=== PATIENT | female | born 1970 | race Caucasian/White ===

== ENCOUNTER → 2016-07-31 | Outpatient (CLI) | payer BC ==
[~2016-07-31] MED LIST: CLON0.5T3 PO; DESO5TAB PO; SUMA50TA15 PO; TRAM-10 PO
[2016-07-31 18:33] LABS: BASO % 0.4 %; BASO ABS # 0.05 K/uL (0-0.2); COMPLETE YES; EOS % 1.5 %; HEMATOCRIT 41.1 % (37-47); IG% 0.3 %; LYMPH % 27.1 %; LYMPH ABS # 3.53 K/uL (1.2-3.4); MEAN CELL VOLUME 89.5 fL (80-100); MEAN CORPUSCULAR HEMOGLOBIN 29.2 pg (25-34); MEAN CORPUSCULAR HGB CONC 32.6 g/dl (32-36); MEAN PLATELET VOLUME 10.8 fL (7.4-10.4); MONO % 3.5 %; NEUT % 67.2 %; PLATELET COUNT 330 K/uL (130-400); RED BLOOD COUNT 4.59 M/uL (4.2-5.4); WHITE BLOOD COUNT 13.04 K/uL (4.8-10.8)
[2016-07-31 19:01] LABS: BLOOD UREA NITROGEN 21 mg/dl (7-18); BUN/CREATININE RATIO 18.6 (10-20); CALCIUM 8.8 mg/dl (8.5-10.1); CARBON DIOXIDE 25 mmol/L (21-32); CHLORIDE 106 mmol/L (98-107); GLUCOSE 106 mg/dl (70-99); POTASSIUM 3.8 mmol/L (3.5-5.1); SODIUM 141 mmol/L (136-145)
== END | disposition home or self-care (01) ==
LOC: C.LAB 17:24
PROVIDERS: ATTEND Psychiatry & Neurology Psychiatry
DX: Z51.81 Encounter for therapeutic drug level monitoring (principal); Z79.899 Other long term (current) drug therapy

== ENCOUNTER → 2016-12-25 | Outpatient (CLI) | payer BC ==
[~2016-12-25] MED LIST changes: +LEVO25TA5 PO; +LITH300T PO
== END | disposition home or self-care (01) ==
LOC: C.PAPS 12:15
PROVIDERS: ATTEND Physician Assistant
DX: Z01.419 Encounter for gynecological examination (general) (routine) without abnormal findings (principal)

== ENCOUNTER 2017-08-05 05:24 | Observation (INO) | payer BC, OTHER ==
[2017-08-01 14:43] LABS: BASO % 0.4 %; BASO ABS # 0.04 K/uL (0-0.2); EOS % 1.8 %; EOS ABS # 0.19 K/uL (0-0.5); HEMATOCRIT 41.2 % (37-47); HEMOGLOBIN 13.8 g/dL (12.0-16.0); IG# 0.03 K/uL (0.00-0.02); LYMPH % 31.9 %; LYMPH ABS # 3.34 K/uL (1.2-3.4); MEAN CELL VOLUME 88.2 fL (80-100); MEAN CORPUSCULAR HEMOGLOBIN 29.6 pg (25-34); MEAN CORPUSCULAR HGB CONC 33.5 g/dl (32-36); MONO % 6.4 %; MONO ABS # 0.67 K/uL (0.11-0.59); NEUT % 59.2 %; NEUT ABS # 6.19 K/uL (1.4-6.5); PLATELET COUNT 372 K/uL (130-400); RED CELL DISTRIBUTION WIDTH CV 13.2 % (11.5-14.5); RED CELL DISTRIBUTION WIDTH SD 42.6 fL (36.4-46.3); WHITE BLOOD COUNT 10.46 K/uL (4.8-10.8)
[2017-08-01 15:12] LABS: BLOOD UREA NITROGEN 19 mg/dl (7-18); CALCIUM 8.9 mg/dl (8.5-10.1); CARBON DIOXIDE 28 mmol/L (21-32); CREATININE 0.97 mg/dl (0.60-1.20); GLUCOSE 99 mg/dl (70-99); POTASSIUM 4.3 mmol/L (3.5-5.1); SODIUM 137 mmol/L (136-145)
[~2017-08-05] VITALS: Ht 160 cm; Wt 80.7 kg
[2017-08-05] VITALS (10 sets, daily range): BP systolic 107–143; BP diastolic 73–80; PULSE 78–109; TEMP 36.3–36.9; O2SAT 90–96; Ht 160 cm; Wt 80.7 kg
[2017-08-05] MEDS ORDERED: CEFAZOLIN 2000MG IV PUSH 15 ML IV SCH (06:00)
[2017-08-05] MEDS ORDERED: LACTATED RINGER'S 1000ML 1,000 ML IV SCH ×2 (06:00→10:45)
[2017-08-05] MEDS ORDERED: LACTATED RINGER'S 1000ML IV SCH (06:00)
[2017-08-05] MEDS ORDERED: EpHEDrine SULFATE INJ 50 MG/ML AMP IV PRN (06:30)
[2017-08-05] MEDS ORDERED: PROMETHAZINE HCL INJ 12.5 MG in SODIUM CHLORIDE 0.9% 50ML 50 ML IV PRN ×2 (06:30→09:15)
[2017-08-05] MEDS ORDERED: ATROPINE SULFATE 0.1 MG/ML 5ML SYR IV PRN (06:30)
[2017-08-05] MEDS ORDERED: ONDANSETRON INJ 2 MG/ML 2 ML VIAL IV PRN ×2 (06:30→09:15)
[2017-08-05] MEDS ORDERED: MIDAZOLAM HCL 1 MG/ML 2ML VIAL ONE (07:01)
[2017-08-05] MEDS ORDERED: FENTANYL CITRATE INJ 50 MCG/1 ML 2 ML VIAL ONE (07:01)
--- NOTE | 2017-08-05 07:08 | History and Physical ---
History & Physical Date Aug 05, 2017. Chief Complaint Hysterectomy due to failed 2014 ablation with full flow menses and cyclic monthly pelvic pain suggestive of endometriosis History of Present Illness The patient is a 47 year old female with complaints as above. Past Medical/Surgical History Medical Problems: (1) Depressive disorder (2) Diverticulitis (3) Gastroesophageal reflux disease (4) Lumbosacral neuritis (5) Migraine (6) Partial bowel obstruction (7) Right leg pain Surgical Problems: (1) History of appendectomy (2) Hx of cholecystectomy Allergies Coded Allergies: No Known Allergies (Verified , 08/05/17) Home Medications Scheduled Desogestrel-Ethinyl Estradiol (Pimtrea 0.15-0.02/0.01 mg (18/11)), 1 TAB PO DAILY Levothyroxine Sodium (Levothyroxine Sodium), 25 MCG PO DAILY Cotter Carbonate (Lithobid Ext Rel), 600 MG PO QAM Sumatriptan Succinate (Imitrex), 50 MG PO PRN Scheduled PRN Clonazepam (Klonopin), 0.5 MG PO DIRECTED PRN for Anxiety Tramadol (Ultram), 50 MG PO Q8H PRN for Pain Physical Examination Skin: warm/dry Eyes: normal inspection ENT: normal ENT inspection Head: normocephalic Neck: supple Respiratory/Chest: no respiratory distress Cardiovascular: regular rate, rhythm, no edema Abdomen / GI: normal bowel sounds Back: normal inspection Extremities: normal inspection Neurologic/Psych: no motor/sensory deficits Plan of Treatment Robotic laparoscopic hysterectomy with bilateral salpingectomy, possible oophorectomy to be decided intraoperatively based on appearance of the ovaries and/or difficulty of surgical approach. If significant endometriosis is encountered, if it involves the ovaries, and/or if surgical approach is so difficult as to make the potential need for re-operation evidently risky, patient desires oophorectomy.
[2017-08-05] MEDS ORDERED: NEOSTIGMINE METHYLSULFATE 5 MG/5 ML SYR ONE (08:31)
[2017-08-05] MEDS ORDERED: ROCURONIUM BROMIDE 10 MG/ML 5 ML VIAL IV ONE ×2 (08:31→08:52)
[2017-08-05] MEDS ORDERED: LARYING-O-JET KIT (LTA) ONE (08:31)
[2017-08-05] MEDS ORDERED: EpHEDrine SULFATE 50MG/5ML SYR ONE (08:31)
[2017-08-05] MEDS ORDERED: LIDOCAINE HCL 2% 2 ML VIAL (20MG/ML) ONE (08:31)
[2017-08-05] MEDS ORDERED: HYDROmorphone INJ 2 MG/ML SYR/VIAL ONE (08:31)
[2017-08-05] MEDS ORDERED: METHYLENE BLUE 0.5% 10 ML VIAL ONE (08:31)
[2017-08-05] MEDS ORDERED: GLYCOPYRROLATE INJ 0.2 MG/ML VIAL ONE (08:31)
[2017-08-05] MEDS ORDERED: ONDANSETRON INJ 2 MG/ML 2 ML VIAL ONE (08:31)
[2017-08-05] MEDS ORDERED: PROPOFOL IV EMULSION 10 MG/ML 20 ML VIAL IV ONE (08:31)
[2017-08-05] MEDS ORDERED: DEXAMETHASONE SOD INJ 4 MG/ML VIAL ONE (08:31)
--- NOTE | 2017-08-05 09:10 | [facility] Post Operative Brief Note ---
Immediate Operative Summary Operative Date Aug 05, 2017. Pre-Operative Diagnosis Failed ablation and endometriosis Post-Operative Diagnosis Failed ablation and endometriosis Procedure(s) Performed Robotic assisted total laparoscopic hysterectomy with bilateral salpingo-oopherectomy,lysis of adhesions and cystscopy Surgeon Dr. Jacki Jeronimo MD Crm Solution Architect Surgeon(s) Dr. Sven Feliciano MD Estimated Blood Loss 5 ml Findings Consistent with Post-Op Diagnosis Specimens A. Uterus, cervix, and bilateral fallopian tubes and ovaries Drains None Anesthesia Type General Complication(s) none Disposition Accompanied Pt To Recover: no Disposition: Recovery Room / PACU
[2017-08-05] MEDS ORDERED: OXYC-57 PO (09:11)
--- NOTE | 2017-08-05 09:12 | Discharge Instructions ---
Discharge Instructions Date of Service Aug 05, 2017. Visit Reason for Visit: Menorrhagia, Female Pelvic Pain;Z01.818 Discharge Discharge Diagnosis / Problem: Endometriosis, Pelvic adhesive disease, Menorrhagia, Failed ablation Discharge Goals Goal(s): Specific goals Activity Recommendations Activity Limitations: per Instructions/Follow-up section Anesthesia . Post Anesthesia Instructions: If you have had General Anesthesia or IV Sedation: * Do not drive today. * Resume driving when surgeon permits. * Do not make important decisions or sign legal documents today. * Call surgeon for: 1. Temperature elevations greater than 101 degrees F. 2. Uncontrollable pain. 3. Excessive bleeding. 4. Persistent nausea and vomiting. 5. Medication intolerance (nausea, vomiting or rash). * For nausea and vomiting use only clear liquids such as: tea, soda, bouillon until nausea subsides, then gradually increase diet as tolerated. * If you have any concerns or questions, call your surgeon's office. If physician is unavailable and it is an emergency, call 911 or go to the nearest emergency room. . Instructions / Follow-Up Instructions / Follow-Up POST OPERATIVE: BOWEL FUNCTION/MEDICATIONS: 1. Constipation pain and discomfort are the most common complaints 5-7 days after surgery. Points 2-6 address the things that can help. 2. Chewing gum can help stimulate the gut and help improve digestion and motility. 3. Milk of Magnesia 1-2 times per day until return of bowel function. 4. Colace is a stool softener that helps. Taking this 2-3 times per day until bowel function returns to normal is highly recommended. 5. Dulcolax is a laxative that may be used if several days have passed without a bowel movement. Alternatively Miralax may be used daily instead. 6. Drink plenty of fluids as this will also reduce constipation. 7. Narcotic pain medications will be prescribed by your physician. They are safe to use and we encourage you to use them. If you are not allergic, ibuprofen will also be prescribed. Many patients will be able to transition off of the narcotic medications to ibuprofen by postoperative day 3. ACTIVITY RECOMMENDATIONS: 1. Get plenty of rest and listen to your body. If you are tired, take a nap. 2. You may shower, but do not take a tub bath until you see your doctor at the 2 week post operative visit. 3. Absolutely NO intercourse and nothing in the vagina until you are examined by your doctor at the 6 week visit. At that visit it will be determined when such activities can be resumed. This can range from 6-12 weeks after your surgery depending on healing time. 4. The main physical activity in the first week should be walking. By the second week you can slowly increase activity. There are no limits on walking up and down stairs. 5. Do not lift more than 5-10 lbs for 4 weeks. Remember the "one-handed rule", i.e. if you can lift something with only one hand it's likely okay. 6. Minimize [employer] or [employer] like vacuuming and exercising for 4 weeks. "Overdoing it" can lead to incisions not healing, pain and vaginal bleeding , so again, listen to your body. 7. Driving can be resumed when you feel able. Do not drive within 24 hours of taking a narcotic medication. EXPECTATIONS: 1. Vaginal spotting, bleeding and discharge are common after surgery. There may even be an odor to the discharge which is often related to sutures used in the vagina. If you experience heavy vaginal bleeding, call the office number day or night [phone]. 2. Bladder discomfort is common after surgery from the catheter. This usually resolves in 1-2 weeks. 3. By the end of the 3rd or 4th week you should be feeling much better. It may take up to 6 weeks for your energy levels to return to normal. 4. Narcotic medications have side effects such as: dizziness, headache, nausea and/or vomiting. If you suspect your pain medication is causing problems, call our office and we may be able to prescribe an alternate medication. 5. The skin incisions are often covered with a liquid bandage. This will gradually peel off over time. CALL THE OFFICE IF YOU HAVE ANY OF THE FOLLOWIN. Temperature of 101 degrees or higher. 2. Severe abdominal or pelvic pain not relieved by pain medication. 3. Persistent nausea or vomiting. 4. Increased pain with urination or difficulty urinating. 5. Bright red bleeding that soaks more than 1 pad per hour. CONTACT PHONE NUMBERS: Main Office: [phone] Surgical Nurse: [phone] extension [phone] FOLLOW-UP: Post-Operative Appointments: * Individual instructions will have been given about the timing of your first examination, but this is usually at the end of the second week home. * You will need to call the office at soon after discharge to make the appointment for your post-op check-up if it has not already been scheduled. * Additional information regarding activity, sexual intercourse and when to return to work will be given at this appointment. WE WISH YOU A SPEEDY RECOVERY! Diet Recommendations Recommended Home Diet: no limitations Procedures Procedures Performed: Robotic assisted total laparoscopic hysterectomy with bilateral salpingo-oopherectomy,lysis of adhesions and cystscopy Pending Studies Studies pending at discharge: no Medical Emergencies . Who to Call and When: Medical Emergencies: If at any time you feel your situation is an emergency, please call 911 immediately. . Non-Emergent Contact Non-Emergency issues call your: Primary Care Provider . . "Provider Documentation" section prepared by Jacki Jeronimo. . [place] Drug Monitoring Program Search Results: patient reviewed within database, no issues identified Drug Monitoring Findings: Known chronic narcotic use due to comorbid conditions
[2017-08-05] MEDS ORDERED: OXYCODONE/ACETAMINOPHEN 5-325 TAB PO PRN (09:15)
[2017-08-05] MEDS ORDERED: MEPERIDINE HCL 50 MG/ML CARP IV PRN (09:15)
[2017-08-05] MEDS ORDERED: ACETAMINOPHEN 325 MG TAB PO PRN (09:15)
[2017-08-05] MEDS ORDERED: KETOROLAC TROMETHAMINE 30 MG/ML VIAL IV. PRN (09:15)
[2017-08-05] MEDS ORDERED: IV FLUIDS COMPLETED PRN (09:30)
[2017-08-05] MEDS: FENTANYL CITRATE INJ 50 MCG/1 ML 2 ML VIAL IV PRN ×4 (09:36→09:52)
[2017-08-05] MEDS: HYDROmorphone INJ 1 MG/ML SYR IV PRN ×2 (09:57→10:03)
--- NOTE | 2017-08-05 10:06 | Anesthesiology Progress Note ---
Anesthesia Post Op Note Date & Time Aug 05, 2017 at 10:06 Vital Signs Pain Intensity: 5 Vital Signs Past 12 Hours Date Time Temp Pulse Resp B/P (MAP) Pulse Ox O2 Delivery O2 Flow Rate FiO2 08/05/17 10:00 85 19 117/90 97 Nasal Cannula 2 08/05/17 09:50 79 15 119/73 95 Nasal Cannula 2 08/05/17 09:40 87 13 111/76 97 Oxymask 10 08/05/17 09:30 74 17 115/80 99 Oxymask 10 08/05/17 09:21 36.3 86 19 120/78 100 Oxymask 10 08/05/17 06:03 36.9 78 18 116/77 (90) 96 Room Air Notes Mental Status: alert / awake / arousable, participated in evaluation Pt Amnestic to Procedure: Yes Nausea / Vomiting: adequately controlled Pain: adequately controlled Airway Patency, RR, SpO2: stable & adequate BP & HR: stable & adequate Hydration State: stable & adequate Anesthetic Complications: no major complications apparent
[2017-08-05] MEDS ORDERED: KETOROLAC TROMETHAMINE 30 MG/ML VIAL ONE (10:09)
[2017-08-05] MEDS: MEPERIDINE HCL 50 MG/ML CARP IV PRN ×2 (10:58→14:46)
[2017-08-05] MEDS: OXYCODONE/ACETAMINOPHEN 5-325 TAB PO PRN ×3 (11:50→20:53)
[2017-08-05] MEDS: IBUPROFEN 600 MG TAB PO PRN ×2 (12:23→18:24)
[2017-08-05 16:04] LABS: HEMOGLOBIN 12.7 g/dL (12.0-16.0)
--- NOTE | 2017-08-05 18:51 | OPERATIVE REPORT ---
DATE OF OPERATION: 08/05/2017 PREOPERATIVE DIAGNOSES: Failed ablation, menorrhagia, endometriosis, chronic pelvic pain. POSTOPERATIVE DIAGNOSES: Same. PROCEDURE: Robotic assisted total laparoscopic hysterectomy, bilateral salpingo-oophorectomy, lysis of adhesions and cystoscopy. SURGEON: Dr. Jeronimo. ASSEMBLER SANDAL PARTS: Dr. Sven Feliciano. ESTIMATED BLOOD LOSS: 5 mL. FINDINGS: Consistent with postop diagnosis. SPECIMENS: Uterus, cervix and bilateral fallopian tubes and ovaries. DRAINS: None. ANESTHESIA: General. COMPLICATIONS: None. DISPOSITION: Stable to recovery room. DESCRIPTION OF PROCEDURE: [place] was placed on the table in the dorsal lithotomy position with Yellofin stirrups, prepped and draped in standard sterile fashion and a hard time-out was taken prior to proceeding. A Lyons and a Meaningfy uterine manipulator were placed. Attention was then turned to the abdomen where a supraumbilical entry was made in an optical manner without complications. The abdomen was then insufflated and under direct visualization, right and left lower quadrant ports were placed while the patient was in steep Trendelenburg. Visualization of the pelvis revealed significant adhesive disease with the bowel densely adherent over the left adnexa to the posterior surface of the uterus and cervix and over the right adnexa as well. Surgery began by elevation of the uterus and then careful dissection of the bowel and omentum from its adhesion points over the posterior uterus. Once the cul-de-sac was able to be visualized, we were able to be several patches of endometriosis visible on the structures in the pelvic including on the bowel and omentum that had been adhesed in the pelvis. Photography was taken. Dissection then proceeded freeing the bowel and omentum from its adhesion points over the left adnexal structures. Of note, at this time we were able to then visualize the ureters coming over the pelvic brim on both sides and visualized their course of peristalsis down into the deep pelvis. This was noted to be well away from the IP ligaments and the ovaries on both sides. Once the left IP ligament had been nicely skeletonized with all bowel adhesions removed away. I discussed the decision to remove ovaries with my partner in the operating room, both of us felt that there was significant evidence for endometriosis including both the plaques which we saw in the cul-de-sac as well as the significant number of peritoneal windows and adhesions throughout the pelvis. We both felt that removing the ovaries was in the best interest of the patient, both to allow resolution of her endometriosis as well as to avoid the need for further surgery which could pose significant risks to the patient given her significant intra-abdominal adhesive disease. Having made the decision to take both ovaries, I began by making a peritoneal window just lateral to the IP ligament, this was dissected downwards and a window was created in the medial leaflet allowing a window to be formed around the IP. The IP was grasped, ligated and divided using bipolar cautery. Dissection proceeded upwards to free the adnexal structures in the pelvic sidewall. Attention was then turned to the right adnexa where again dissection of adhesive disease was done to remove the bowel and omentum away from the adnexal structures. Once the structures were clearly visible, the IP was ligated and then divided and dissection proceeded to free the adnexal structures from the pelvic sidewall in the peritoneum. Creation of a bladder flap proceeded, skeletonization of the uterine arteries proceeded as well. The right uterine artery was ligated and divided and then the left uterine artery was ligated and divided. Circumferential colpotomy was then completed and the cervix, uterus and bilateral tubes and ovaries were delivered through the vaginal canal. A V-Loc suture was then used to close the vaginal cuff in a running nonlocked manner, after which the needle was retrieved through robotic laparoscopic port. Brief suction irrigation was undertaken to ensure good hemostasis at all working sites. Once this had been demonstrated, the Robotic instruments were removed and cystoscopy was performed. Methylin blue had been given prior to closure of the cuff. A blue-stained jet of urine was seen from each ureteral orifice. The bladder was then drained and attention to the abdominal closure then began. The umbilical port site was closed using a UR-6 at the fascial layer and the skin was closed all 3 sites using Monocryl with a Dermabond dressing then being applied. The patient was then transferred in stable condition to the recovery room. I attest to the content of the Intraoperative Record and any orders documented therein. Any exception s are noted below.
[2017-08-05] MEDS: DOCUSATE SODIUM 100 MG CAP PO SCH (20:53)
[2017-08-06 00:04] VITALS: BP 106/66; PULSE 88; TEMP 36.9
[2017-08-06] MEDS: IBUPROFEN 600 MG TAB PO PRN ×2 (00:15→07:31)
[2017-08-06] MEDS: OXYCODONE/ACETAMINOPHEN 5-325 TAB PO PRN ×2 (01:02→06:23)
[2017-08-06] MEDS ORDERED: OXYCODONE/ACETAMINOPHEN 5-325 TAB PO STA (03:39)
[2017-08-06] MEDS ORDERED: NURSING VERBAL MED ORDER ONE (03:45)
[2017-08-06 04:05] VITALS: BP 114/74; PULSE 78; TEMP 36.8
[2017-08-06 07:20] VITALS: BP 108/68; PULSE 69; TEMP 36.6; O2SAT 96
[2017-08-06] MEDS: DOCUSATE SODIUM 100 MG CAP PO SCH (07:30)
--- NOTE | 2017-08-06 07:30 | Progress Note ---
Subjective Date of Service: Aug 06, 2017. Subjective Pt evaluation today including: conversation w/ patient, physical exam, chart review Pain: Currently well controlled. PO Intake: Regular diet without difficulty Voiding: no voiding problems Patient ambulated from the bathroom across the room and bent over to put things in her bag as I entered the room. She showed no sign of distress until she was aware of my presence. Her gait from there back to the bed was bent over and shuffling and she made several groans of pain. Problem List Medical Problems: (1) Cervical strain Status: Acute (2) Depression Status: Acute (3) Headache Status: Acute (4) Suicidal ideation Status: Acute Review of Systems Constitutional: No fever, No chills Respiratory: No cough Cardiac: No chest pain Abdomen: No nausea, No vomiting Female : No dysuria Objective Vital Signs Date Time Temp Pulse Resp B/P (MAP) Pulse Ox O2 Delivery O2 Flow Rate FiO2 08/06/17 04:05 36.8 78 18 114/74 (87) Room Air 08/06/17 00:04 36.9 88 18 106/66 (79) Room Air 08/06/17 00:04 Room Air 08/05/17 19:00 Room Air 08/05/17 19:00 36.8 89 20 111/73 (86) Room Air 08/05/17 15:05 94 Room Air 08/05/17 15:05 36.8 108 18 121/79 (93) 94 Room Air 08/05/17 13:40 86 20 107/78 (88) Room Air 08/05/17 12:45 36.4 104 18 143/73 (96) 96 Room Air 08/05/17 11:42 103 20 120/80 (93) 93 Room Air 08/05/17 11:21 94 Room Air 08/05/17 11:19 94 Room Air 08/05/17 11:10 109 22 117/74 (88) 90 Room Air 08/05/17 10:35 36.3 86 24 107/76 (86) 94 Room Air 08/05/17 10:20 36.7 94 15 109/74 97 Nasal Cannula 2 08/05/17 10:10 90 18 101/80 96 Nasal Cannula 2 08/05/17 10:00 85 19 117/90 97 Nasal Cannula 2 08/05/17 09:50 79 15 119/73 95 Nasal Cannula 2 08/05/17 09:40 87 13 111/76 97 Oxymask 10 08/05/17 09:30 74 17 115/80 99 Oxymask 10 08/05/17 09:21 36.3 86 19 120/78 100 Oxymask 10 Physical Exam General Appearance: + mild distress ENT: hearing grossly normal Neck: supple Respiratory/Chest: normal breath sounds, no respiratory distress Cardiovascular: no edema Abdomen: non tender, soft, + pertinent finding (incisions c/d/i x3 with surgiseal. No ecchymoses.) Extremities: normal inspection, + pertinent finding (SCDs not on. Patient ambulating.) Neurologic/Psychiatric: normal mood/affect, oriented x 3 Skin: no rash Laboratory Results Last 24 Hours Test 08/05/17 15:54 Hemoglobin 12.7 g/dL Hematocrit 39.0 % Assessment and Plan Ready for discharge home. Explained discharge instructions and need to schedule 2 and 6 week follow up appointments. Rx for #15 of percocet given and patient made aware it is not expected that she will need percocet beyond today/ tonight. Motrin and tylenol to be used thereafter.
[2017-08-06 09:04] VITALS: BP 108/68; PULSE 69; TEMP 36.6; O2SAT 96
== END 2017-08-06 09:33 | disposition home or self-care (01) ==
LOC: C.ACU 05:24 → C.OBG 09:13
PROVIDERS: ADMIT Obstetrics & Gynecology; ATTEND Obstetrics & Gynecology
DX: N80.1 Endometriosis of ovary (principal); N80.3 Endometriosis of pelvic peritoneum; N73.6 Female pelvic peritoneal adhesions (postinfective); D25.9 Leiomyoma of uterus, unspecified; E66.9 Obesity, unspecified; G47.33 Obstructive sleep apnea (adult) (pediatric); F32.9 Major depressive disorder, single episode, unspecified; K21.9 Gastro-esophageal reflux disease without esophagitis; Z90.49 Acquired absence of other specified parts of digestive tract
CPT/HCPCS: 58571; S2900

== ENCOUNTER 2017-08-16 09:27 | Inpatient (IN) | payer OTHER ==
[~2017-08-16] VITALS: Ht 160 cm; Wt 86.0 kg
[~2017-08-16 09:27] MED LIST changes: -DESO5TAB PO; +OXYC-57 PO
--- NOTE | 2017-08-16 09:40 | EMERGENCY ROOM VISIT NOTE ---
History Report prepared by Chris: Alon Akins Under the Supervision of: Dr. Ray Donovan M.D. First contact with patient: 09:35 Chief Complaint: CHEST PAIN Stated Complaint: CHEST PAIN History of Present Illness The patient is a 47 year old female who presents to the Emergency Room for evaluation chest pains. Notes 2 days increasing periodica episodes of shortness of breath and chest pains. Worse with exertion though periodically even with rest. Associated with tachycardia, dizziness, lightheadedness and periodic weakness. Admits posterior right knee pain over the last week. She had hysterectomy last week. No previous chest pain/sob issues. Denies history PE/DVT. No recent travel. No steroid use. No history clotting disorder in her nor family. Denies swelling arms/legs. Denies calf pain. No vaginal bleeding nor issues with abdominal pain other than what is easily controlled with percocet she has been using. No headache, neck pain, rectal bleeding, GI bleeds, nor brain surgeries. Source of History: patient Onset: 2 days ago Position: chest Quality: stabbing Timing: constant Modifying Factors (Worsening): movement Associated Symptoms: + SOB, + weakness Note: Patient reports dizziness and lightheadedness She denies leg swelling and radiation of pain into arms. Review of Systems See HPI for pertinent positives & negatives. A total of 10 systems reviewed and were otherwise negative. Past Medical & Surgical Medical Problems: (1) Depression (2) Endometriosis (3) GERD (gastroesophageal reflux disease) (4) ESTEBAN (obstructive sleep apnea) Surgical Problems: (1) H/O wisdom tooth extraction (2) History of appendectomy (3) History of hysterectomy (4) History of partial colectomy (5) Hx of cholecystectomy Family History Diabetes mellitus FH: gallbladder disease Kidney disease or stones Social History Smoking Status: Former Smoker Alcohol Use: occasionally Drug Use: none Marital Status: Housing Status: lives with family Occupation Status: employed Current/Historical Medications Scheduled Escitalopram (Lexapro), 10 MG PO DAILY Levothyroxine Sodium (Levothyroxine Sodium), 25 MCG PO DAILY [place] Carbonate (Lithobid Ext Rel), 600 MG PO QAM Sumatriptan Succinate (Imitrex), 50 MG PO PRN Scheduled PRN Clonazepam (Klonopin), 0.5 MG PO BID PRN for Anxiety Oxycodone/Acetaminophen 5MG/325MG (Percocet 5MG/325MG), 1 TABLET PO Q4H PRN for Pain Tramadol (Ultram), 50 MG PO Q8H PRN for Pain Allergies Coded Allergies: No Known Allergies (Verified , 08/16/17) Physical Exam Vital Signs Date Time Temp Pulse Resp B/P (MAP) Pulse Ox O2 Delivery O2 Flow Rate FiO2 08/16/17 11:19 89 24 124/66 98 Room Air 08/16/17 09:47 Room Air 08/16/17 09:39 100 08/16/17 09:29 36.6 114 20 126/84 98 Room Air Physical Exam GENERAL: Patient is anxious appearing and in no acute distress. HEENT: No acute trauma, normocephalic atraumatic, mucous membranes moist, no nasal congestion, no scleral icterus. NECK: No stridor, no adenopathy, no meningismus, trachea is midline. LUNGS: No dyspnea. Clear to auscultation and equal bilaterally. No wheeze, no rhonchi. HEART: Mild tachycardia with sitting up. Regular rhythm. No murmurs, rubs, gallops appreciated. ABDOMEN: Soft, nontender, bowel sounds positive, no masses appreciated, no peritonitis. Abdominal ports scars healing well. BACK: No midline tenderness, no CVA tenderness EXTREMITIES: Normal motion all extremities, no cyanosis, no edema. NEUROLOGIC: Alert and oriented, no acute motor or sensory deficits, no focal weakness, cranial nerves grossly intact. SKIN: No rash, no jaundice, no diaphoresis. Medical Decision & Procedures ER Provider Diagnostic Interpretation: Radiology results and stated below per my review and radiologist interpretation: (CHEST FOR PE) ANGIO WITH CLINICAL HISTORY: 47 years-old Female presenting with chest pain, shortness of breath, cough, tachycardia, recently postop, hysterectomy 2 weeks ago. TECHNIQUE: Multidetector CT angiography of the chest was performed after administration of intravenous contrast. 3-D volumetric and/or maximum intensity projection (MIP) images were subsequently reconstructed for review. IV contrast: 102 mL of Optiray 320. A dose lowering technique was used consistent with the principles of ALARA (as low as reasonably achievable). COMPARISON: Chest x-ray performed on 09/28/2014. CT DOSE (mGy.cm): The estimated cumulative dose is 533.97 mGycm. FINDINGS: Dermatology Physician Assistant topogram: Cholecystectomy clips noted. Pulmonary vasculature: The study is adequate for assessment of the pulmonary vascular tree. Acute pulmonary embolus in the pulmonary arteries supplying the lingula and left lower lobes. This extends into segmental pulmonary arteries more prominently in the lower lobe. No right-sided pulmonary emboli. Main pulmonary artery is not enlarged. No flattening of the interventricular septum. No intracardiac filling defect. No reflux of contrast into the hepatic veins. Remaining chest: On soft tissue windows, bilateral subpectoral breast implants. Subcentimeter hypodense nodule in the right lobe of the thyroid. No axillary, supraclavicular, hilar, or mediastinal lymphadenopathy. Normal aorta. Normal heart size. No pericardial or pleural effusion. Hepatic steatosis. On lung windows, minimal dependent changes likely atelectasis. No other focal nodule or infiltrate. Airways patent. On bone windows, normal osseous structures. IMPRESSION: 1. Acute pulmonary emboli in the lobar pulmonary arteries to the lingula and left lower lobes with additional segmental pulmonary emboli in these segments, greatest in the left lower lobe. No CT evidence of right heart strain. 2. No pulmonary infiltrate. 3. Hepatic steatosis. The report will be called/faxed according to standard departmental protocol. Electronically signed by: Sam Alston M.D. 08/16/2017 11:33 AM Dictated Date/Time: 08/16/2017 11:28 AM Laboratory Results Test 08/16/17 09:45 08/16/17 09:51 Immature Granulocyte % (Auto) 0.8 % White Blood Count 13.01 K/uL (4.8-10.8) Red Blood Count 4.95 M/uL (4.2-5.4) Hemoglobin 14.4 g/dL (12.0-16.0) Hematocrit 42.2 % (37-47) Mean Corpuscular Volume 85.3 fL (80-100) Mean Corpuscular Hemoglobin 29.1 pg (25-34) Mean Corpuscular Hemoglobin Concent 34.1 g/dl (32-36) Platelet Count 390 K/uL (130-400) Mean Platelet Volume 9.7 fL (7.4-10.4) Neutrophils (%) (Auto) 61.5 % Lymphocytes (%) (Auto) 27.8 % Monocytes (%) (Auto) 5.6 % Eosinophils (%) (Auto) 3.3 % Basophils (%) (Auto) 1.0 % Neutrophils # (Auto) 8.00 K/uL (1.4-6.5) Lymphocytes # (Auto) 3.62 K/uL (1.2-3.4) Monocytes # (Auto) 0.73 K/uL (0.11-0.59) Eosinophils # (Auto) 0.43 K/uL (0-0.5) Basophils # (Auto) 0.13 K/uL (0-0.2) Immature Granulocyte # (Auto) 0.10 K/uL (0.00-0.02) Troponin I < 0.015 ng/ml (0-0.045) Bedside Hemoglobin 13.9 g/dl (12.0-16.0) Bedside Hematocrit 41 % (37-47) Bedside Sodium 139 mEq/L (135-144) Bedside Potassium 3.9 mEq/L (3.3-5.0) Bedside Chloride 105 mEq/L (101-112) Bedside Total CO2 25 mEq/l (24-31) Bedside Blood Urea Nitrogen 25 mg/dl (7-18) Bedside Creatinine 0.8 mg/dl (0.6-1.3) Bedside Glucose (other) 107 mg/dl (70-99) Bedside Ionized Calcium (Barbara) 1.21 mmol/l (1.12-1.32) Laboratory results as reviewed by me. Medications Administered Medications (Trade) Dose Ordered Sig/Lida Route Start Time Stop Time Status Last Admin Dose Admin Sodium Chloride 1,000 ml @ 999 mls/hr Q1H1M STAT IV 08/16/17 09:53 08/16/17 10:53 DC 08/16/17 09:53 999 MLS/HR Oxycodone/ Acetaminophen (Percocet 5-325mg Tab) 1 tab NOW ONCE PO 08/16/17 10:15 08/16/17 10:16 DC 08/16/17 10:07 1 TAB Acetaminophen (Tylenol Tab) 650 mg Q4H PRN PO 08/16/17 12:15 09/15/17 12:14 08/17/17 02:12 650 MG ECG Per My Interpretation Indication: chest pain Rate (beats per minute): 93 Rhythm: normal sinus Findings: no acute ischemic change, no ectopy Change: EKG: Electrocardiogram per my interpretation. ED Course 0935: The patient was evaluated in room A11B. A complete history and physical exam was performed. 1000: I ordered the patient Percocet for her reported pain. 1135: After discussing concerns of a PE she states that she has had right posterior knee pain for the past 2 weeks. She feels slightly better and is tachycardiac. 1140: Discussed the patient's case with Nela Vines PA-C. The patient will be evaluated for further treatment and disposition. 1151: I discussed starting the patient on Heparin as well as the risks of bleeding post-operatively. 1300: Upon reevaluation, the patient is doing well. Discussed results and treatment plan with the patient. She verbalized understanding and agreement with the treatment plan. The patient will be evaluated for further management. Medical Decision Differential: Infectious, Reactive Airway Disease, Pneumonia, Pneumothorax, COPD , CHF, ACS, Pulmonary Embolism, MSK, GI, Dissection, amongst other etiologies entertained. 47 yr old female arrives with complaint of periodic shob/cp which gets worse with exertion. This begun in last few days but admits she has had some right posterior knee pain post operatively for last 1.5 weeks. She has shob/cp and is tachy with movement and just had surgery thus she meets criteria for CT PE without Dimer which revealed left lingular/lower lobe PEs. With recent surgery and multiple PEs seems reasonable to bring in for IV heparin for very close monitoring and further evaluation/treatment. Discussed at length bleeding risks and she agrees with plan. Reviewed with her surgeon as well. Medication Reconcilliation Current Medication List: was personally reviewed by me Blood Pressure Screening Patient's blood pressure: Normal blood pressure Blood pressure disposition: Did not require urgent referral Consults Time Called: 1139 Consulting Physician: Nela Vines PA-C Returned Call: 1140 I discussed the patient's case with Nela Vines PA-C who agrees with starting Heparin. The patient will be evaluated for further treatment and disposition. Impression Primary Impression: Pulmonary embolism Critical Care I have personally spent greater than 35 minutes of critical care time in the direct management of this patient. This was a life/limb threatening event. This includes time spent evaluating patient, direct bedside care, chart review, placing orders, interpretation of diagnostic studies, discussion with consultants, patient, and family members, as well as other required patient management activities. This 35 minutes is in excess of all separately billable procedures. Scribe Attestation The scribe's documentation has been prepared under my direction and personally reviewed by me in its entirety. I confirm that the note above accurately reflects all work, treatment, procedures, and medical decision making performed by me. Departure Information Referrals Joey Crockett III, M.D. (PCP) Patient Instructions My [facility]
[2017-08-16] MEDS ORDERED: SODIUM CHLORIDE 0.9% 1000ML 1,000 ML IV STA (09:53)
[2017-08-16 09:56] LABS: BASO ABS # 0.13 K/uL (0-0.2); EOS % 3.3 %; EOS ABS # 0.43 K/uL (0-0.5); HEMATOCRIT 42.2 % (37-47); HEMOGLOBIN 14.4 g/dL (12.0-16.0); LYMPH % 27.8 %; LYMPH ABS # 3.62 K/uL (1.2-3.4); MEAN CELL VOLUME 85.3 fL (80-100); MEAN CORPUSCULAR HEMOGLOBIN 29.1 pg (25-34); MEAN CORPUSCULAR HGB CONC 34.1 g/dl (32-36); MEAN PLATELET VOLUME 9.7 fL (7.4-10.4); MONO % 5.6 %; MONO ABS # 0.73 K/uL (0.11-0.59); NEUT % 61.5 %; PLATELET COUNT 390 K/uL (130-400); RED CELL DISTRIBUTION WIDTH CV 12.7 % (11.5-14.5); WHITE BLOOD COUNT 13.01 K/uL (4.8-10.8)
[2017-08-16] MEDS ORDERED: OPTIRAY 320 IV PRN (10:00)
[2017-08-16 10:04] LABS: ISTAT CREATININE 0.8 mg/dl (0.6-1.3); ISTAT IONIZED CALCIUM 1.21 mmol/l (1.12-1.32); ISTAT POTASSIUM 3.9 mEq/L (3.3-5.0)
[2017-08-16 10:09] LABS: BLOOD UREA NITROGEN 23 mg/dl (7-18); CALCIUM 9.5 mg/dl (8.5-10.1); CARBON DIOXIDE 25 mmol/L (21-32); GLUCOSE 107 mg/dl (70-99); POTASSIUM 3.8 mmol/L (3.5-5.1); SODIUM 137 mmol/L (136-145)
[2017-08-16] MEDS ORDERED: OXYCODONE/ACETAMINOPHEN 5-325 TAB PO ONE (10:15)
[2017-08-16] MEDS ORDERED: FLUO10CA48 PO (10:48)
--- NOTE | 2017-08-16 11:35 | DIAGNOSTIC IMAGING REPORT ---
(CHEST FOR PE) ANGIO WITH CLINICAL HISTORY: 47 years-old Female presenting with chest pain, shortness of breath, cough, tachycardia, recently postop, hysterectomy 2 weeks ago. TECHNIQUE: Multidetector CT angiography of the chest was performed after administration of intravenous contrast. 3-D volumetric and/or maximum intensity projection (MIP) images were subsequently reconstructed for review. IV contrast: 102 mL of Optiray 320. A dose lowering technique was used consistent with the principles of ALARA (as low as reasonably achievable). COMPARISON: Chest x-ray performed on 09/28/2014. CT DOSE (mGy.cm): The estimated cumulative dose is 533.97 mGycm. FINDINGS: Head Chef topogram: Cholecystectomy clips noted. Pulmonary vasculature: The study is adequate for assessment of the pulmonary vascular tree. Acute pulmonary embolus in the pulmonary arteries supplying the lingula and left lower lobes. This extends into segmental pulmonary arteries more prominently in the lower lobe. No right-sided pulmonary emboli. Main pulmonary artery is not enlarged. No flattening of the interventricular septum. No intracardiac filling defect. No reflux of contrast into the hepatic veins. Remaining chest: On soft tissue windows, bilateral subpectoral breast implants. Subcentimeter hypodense nodule in the right lobe of the thyroid. No axillary, supraclavicular, hilar, or mediastinal lymphadenopathy. Normal aorta. Normal heart size. No pericardial or pleural effusion. Hepatic steatosis. On lung windows, minimal dependent changes likely atelectasis. No other focal nodule or infiltrate. Airways patent. On bone windows, normal osseous structures. IMPRESSION: 1. Acute pulmonary emboli in the lobar pulmonary arteries to the lingula and left lower lobes with additional segmental pulmonary emboli in these segments, greatest in the left lower lobe. No CT evidence of right heart strain. 2. No pulmonary infiltrate. 3. Hepatic steatosis. The report will be called/faxed according to standard departmental protocol. Electronically signed by: Sam Alston M.D. 08/16/2017 11:33 AM Dictated Date/Time: 08/16/2017 11:28 AM
[2017-08-16 11:42] LABS: INR 0.9 (0.9-1.1); PTT PATIENT 31.3 SECONDS (21.0-31.0)
[2017-08-16] MEDS ORDERED: ACETAMINOPHEN 325 MG TAB PO PRN (12:15)
[2017-08-16] MEDS ORDERED: ONDANSETRON INJ 2 MG/ML 2 ML VIAL IV PRN (12:15)
[2017-08-16] MEDS ORDERED: ESCI10TA17 PO (12:24)
[2017-08-16] MEDS ORDERED: CLONAZEPAM 0.5 MG TAB PO PRN (12:30)
[2017-08-16] MEDS ORDERED: HEPARIN 25000 UNIT/500 ML D5W ONE (12:37)
[2017-08-16] MEDS ORDERED: HEPARIN SOD 5000 UNIT/0.5 ML CARP ONE (12:37)
[2017-08-16 13:08] VITALS: BP 110/75; PULSE 87; TEMP 36.5; O2SAT 95; Ht 160 cm; Wt 86.0 kg
[2017-08-16] MEDS ORDERED: HEPARIN IV BOLUS 5,000 UNIT in SYRINGE 0 ML IV SCH (13:30)
[2017-08-16] MEDS ORDERED: HEPARIN 25,000 UNIT/500ML D5W 500 ML IV PRN (13:30)
[2017-08-16] MEDS: OXYCODONE/ACETAMINOPHEN 5-325 TAB PO PRN ×2 (13:56→20:10)
--- NOTE | 2017-08-16 14:50 | History and Physical ---
History & Physical Date & Time of Service: Aug 16, 2017 at 13:42 Chief Complaint: Shortness of Breath Primary Care Physician: Joey Crockett III, M.D. History of Present Illness 47 year old female who presents to the ED with shortness of breath. Patient underwent elective hysterectomy on 08/05. Patient reports that over the past week she has had increasing shortness of breath and diaphoresis with minimal activity. Over the past couple of days she has had a couple of episodes of chest pressure and chest pain that she describes as a stabbing. She notes pain behind her right knee. No lightheadedness, dizziness, or syncopal events. She reports incisional pain is well controlled. No abdominal pain, nausea, vomiting , or diarrhea. She denies fever and chills. No urinary symptoms. In the ED, patient's CTA chest is showing pulmonary embolism. She is saturating well on room air but becomes tachycardic with minimal activity. ED discussed case with patient's payment rep who preformed the surgery and said it was ok to start IV heparin. Past Medical/Surgical History Medical Problems: (1) Depression Status: Chronic (2) Endometriosis Status: Chronic (3) GERD (gastroesophageal reflux disease) Status: Chronic (4) ESTEBAN (obstructive sleep apnea) Status: Chronic Surgical Problems: (1) H/O wisdom tooth extraction Status: Chronic (2) History of appendectomy Status: Chronic (3) History of hysterectomy Status: Chronic (4) History of partial colectomy Status: Chronic (5) Hx of cholecystectomy Status: Chronic Family History FH: prostate cancer GRANDFATHER Hypertension FATHER Social History Smoking Status: Former Smoker Alcohol Use: occasionally Immunizations History of Influenza Vaccine: Yes Influenza Vaccine Date: Apr 10, 2017 History of Tetanus Vaccine?: Yes Tetanus Immunization Date: May 14, 2007 Multi-Drug Resistant Organisms History of MDRO: No Allergies Coded Allergies: No Known Allergies (Verified , 08/16/17) Home Medications Scheduled Escitalopram (Lexapro), 10 MG PO DAILY Levothyroxine Sodium (Levothyroxine Sodium), 25 MCG PO DAILY [place] Carbonate (Lithobid Ext Rel), 600 MG PO QAM Rivaroxaban (Xarelto Starter Pack 15 & 20 mg), 15 MG PO UD Sumatriptan Succinate (Imitrex), 50 MG PO PRN Scheduled PRN Clonazepam (Klonopin), 0.5 MG PO BID PRN for Anxiety Oxycodone/Acetaminophen 5MG/325MG (Percocet 5MG/325MG), 1 TABLET PO Q4H PRN for Pain Tramadol (Ultram), 50 MG PO Q8H PRN for Pain Review of Systems ROS per HPI, all other systems reviewed and negative Physical Exam Vital Signs Date Time Temp Pulse Resp B/P (MAP) Pulse Ox O2 Delivery O2 Flow Rate FiO2 08/16/17 13:17 105 16 135/85 97 08/16/17 12:46 105 08/16/17 12:39 95 16 135/85 97 Room Air 08/16/17 11:19 89 24 124/66 98 Room Air 08/16/17 09:47 Room Air 08/16/17 09:39 100 08/16/17 09:29 36.6 114 20 126/84 98 Room Air General Appearance: WD/WN, no apparent distress Head: normocephalic, atraumatic Eyes: normal inspection, EOMI, sclerae normal ENT: hearing grossly normal, + pertinent finding (mucous membranes moist) Neck: supple, no JVD, trachea midline Respiratory/Chest: lungs clear, normal breath sounds, no respiratory distress Cardiovascular: regular rate, rhythm, no edema, normal peripheral pulses Abdomen/GI: normal bowel sounds, non tender, soft, no organomegaly Extremities/Musculoskelatal: normal inspection, no calf tenderness, normal capillary refill, + pertinent finding (tenderness behind right knee) Neurologic/Psych: no motor/sensory deficits, alert, normal mood/affect, oriented x 3 Skin: normal color, warm/dry Diagnostics Laboratory Results Results Past 24 Hours Test 08/16/17 09:45 08/16/17 09:51 Range/Units White Blood Count 13.01 4.8-10.8 K/uL Red Blood Count 4.95 4.2-5.4 M/uL Hemoglobin 14.4 12.0-16.0 g/dL Hematocrit 42.2 37-47 % Mean Corpuscular Volume 85.3 80-100 fL Mean Corpuscular Hemoglobin 29.1 25-34 pg Mean Corpuscular Hemoglobin Concent 34.1 32-36 g/dl Platelet Count 390 130-400 K/uL Mean Platelet Volume 9.7 7.4-10.4 fL Neutrophils (%) (Auto) 61.5 % Lymphocytes (%) (Auto) 27.8 % Monocytes (%) (Auto) 5.6 % Eosinophils (%) (Auto) 3.3 % Basophils (%) (Auto) 1.0 % Neutrophils # (Auto) 8.00 1.4-6.5 K/uL Lymphocytes # (Auto) 3.62 1.2-3.4 K/uL Monocytes # (Auto) 0.73 0.11-0.59 K/uL Eosinophils # (Auto) 0.43 0-0.5 K/uL Basophils # (Auto) 0.13 0-0.2 K/uL RDW Standard Deviation 39.0 36.4-46.3 fL RDW Coefficient of Variation 12.7 11.5-14.5 % Immature Granulocyte % (Auto) 0.8 % Immature Granulocyte # (Auto) 0.10 0.00-0.02 K/uL Prothrombin Time 9.6 9.0-12.0 SECONDS Prothromb Time International Ratio 0.9 0.9-1.1 Activated Partial Thromboplast Time 31.3 21.0-31.0 SECONDS Partial Thromboplastin Ratio 1.2 Sodium Level 137 136-145 mmol/L Potassium Level 3.8 3.5-5.1 mmol/L Chloride Level 103 98-107 mmol/L Carbon Dioxide Level 25 21-32 mmol/L Anion Gap 8.0 14.0 16-25 mmol/L Blood Urea Nitrogen 23 7-18 mg/dl Creatinine 0.90 0.60-1.20 mg/dl Est Creatinine Clear Calc Drug Dose 79.8 ml/min Estimated GFR () 88.3 Estimated GFR (Non- 76.1 BUN/Creatinine Ratio 25.1 10-20 Random Glucose 107 70-99 mg/dl Calcium Level 9.5 8.5-10.1 mg/dl Troponin I < 0.015 0-0.045 ng/ml Bedside Hemoglobin 13.9 12.0-16.0 g/dl Bedside Hematocrit 41 37-47 % Bedside Sodium 139 135-144 mEq/L Bedside Potassium 3.9 3.3-5.0 mEq/L Bedside Chloride 105 101-112 mEq/L Bedside Total CO2 25 24-31 mEq/l Bedside Blood Urea Nitrogen 25 7-18 mg/dl Bedside Creatinine 0.8 0.6-1.3 mg/dl Bedside Glucose (other) 107 70-99 mg/dl Bedside Ionized Calcium (Barbara) 1.21 1.12-1.32 mmol/l Diagnostic Radiology CTA CHEST IMPRESSION: 1. Acute pulmonary emboli in the lobar pulmonary arteries to the lingula and left lower lobes with additional segmental pulmonary emboli in these segments, greatest in the left lower lobe. No CT evidence of right heart strain. 2. No pulmonary infiltrate. 3. Hepatic steatosis. Impression Assessment and Plan ACUTE PULMONARY EMBOLISM - admit to tele - patient presenting with increasing shortness of breath x 1 week; s/p hysterectomy 2/ - likely provoked PE from recent surgery - tachycardic with minimal exertion, currently saturating well on room air - will check BLLE dopplers to complete work up - IV heparin started in ED (was discussed with gyne by ED physician) - continue IV heparin with transition to Coumadin vs. NOAC pending insurance approval DEPRESSION - continue escitalopram and lithium HYPOTHYROIDISM - continue levothyroxine DVT PROPHYLAXIS - on IV heparin gtt DISPO - In my clinical judgment this beneficiary meets acute admission criteria, established by [facility], that includes being hospitalized through two midnights. ATTENDING ADDENDUM ; pt seen and examined, care co ordinated with Jasmyn SHELDON 47 yo f presents with SOB , tachycardia , chest pain has recent surgery -Hysterectomy [address] chest shows Acute pulmonary emboli in the lobar pulmonary arteries to the lingula and left lower lobes with additional segmental pulmonary emboli in these segments, greatest in the left lower lobe. No CT evidence of right heart strain. no prior hx of blood clot , no family hx of blood clot started on IV heparin can be transitioned to NOAC's in AM depending on insurance coverage Evelia Frances MD VTE Prophylaxis VTE Risk Assessment Done? Y/N: Yes Risk Level: Moderate
--- NOTE | 2017-08-16 15:00 | DIAGNOSTIC IMAGING REPORT ---
VENOUS DOPPLER LWR EXT BILA HISTORY: Pain. Edema. pain COMPARISON STUDY: None. FINDINGS: There is normal compressibility, flow, and augmentation within the bilateral lower extremity deep venous systems. IMPRESSION: No DVT within the right or left lower extremity. The above report was generated using voice recognition software. It may contain grammatical, syntax or spelling errors. Electronically signed by: Andrey Fortune M.D. 08/16/2017 2:59 PM Dictated Date/Time: 08/16/2017 2:59 PM
[2017-08-16] MEDS ORDERED: MoRPHine SULFATE 4 MG/ML 1 ML CARP\\VIAL IV ONE (15:45)
[2017-08-16] MEDS ORDERED: ACETAMINOPHEN 325 MG TAB PO SCH (16:00)
[2017-08-16 20:00] VITALS: BP 107/73; PULSE 81; TEMP 36.6; O2SAT 95
[2017-08-16 21:06] LABS: PTT PATIENT 41.1 SECONDS (21.0-31.0)
[2017-08-16] MEDS: TRAMADOL HCL 50 MG TAB PO PRN (22:13)
[2017-08-16] MEDS ORDERED: HEPARIN IV BOLUS 3,000 UNIT in SYRINGE 0 ML IV ONE (22:30)
[2017-08-16] MEDS ORDERED: NURSING VERBAL MED ORDER ONE (23:45)
[2017-08-16 23:50] VITALS: BP 120/79; PULSE 80; TEMP 37.1; O2SAT 96
[2017-08-17] VITALS (8 sets, daily range): BP systolic 100–124; BP diastolic 62–86; PULSE 72–90; TEMP 36.4–37.3; O2SAT 95–97
[2017-08-17] MEDS: OXYCODONE/ACETAMINOPHEN 5-325 TAB PO PRN ×4 (00:11→20:31)
[2017-08-17 04:23] LABS: HEMATOCRIT 35.6 % (37-47); HEMOGLOBIN 11.9 g/dL (12.0-16.0); MEAN CORPUSCULAR HEMOGLOBIN 28.4 pg (25-34); MEAN CORPUSCULAR HGB CONC 33.4 g/dl (32-36); MEAN PLATELET VOLUME 9.5 fL (7.4-10.4); PLATELET COUNT 308 K/uL (130-400); RED CELL DISTRIBUTION WIDTH CV 12.7 % (11.5-14.5); RED CELL DISTRIBUTION WIDTH SD 38.7 fL (36.4-46.3); WHITE BLOOD COUNT 12.03 K/uL (4.8-10.8)
[2017-08-17 04:40] LABS: INR 0.9 (0.9-1.1)
[2017-08-17 04:42] LABS: CALCIUM 8.3 mg/dl (8.5-10.1); CREATININE 0.81 mg/dl (0.60-1.20); POTASSIUM 3.6 mmol/L (3.5-5.1)
[2017-08-17 04:44] LABS: PTT PATIENT 55.5 SECONDS (21.0-31.0)
[2017-08-17] MEDS: LEVOTHYROXINE 25 MCG TAB PO SCH (06:16)
[2017-08-17] MEDS: ESCITALOPRAM OXALATE 10 MG TAB PO SCH (08:23)
[2017-08-17] MEDS: LITHIUM CARBONATE SR 300 MG TAB (LITHOBID) PO SCH (08:23)
[2017-08-17] MEDS ORDERED: RIVAROXABAN TAB 15 MG TAB PO ONE (09:30)
[2017-08-17] MEDS ORDERED: HEPARIN - STOP ORDER ONE (10:00)
[2017-08-17] MEDS ORDERED: RIVA1TAB7 PO (12:50)
[2017-08-17] MEDS ORDERED: OXYC-57 PO (12:50)
--- NOTE | 2017-08-17 12:54 | Discharge Instructions ---
Discharge Instructions Admission Admission Date: Aug 16, 2017 at 12:15 Admission Diagnosis: Pulmonary Embolism. Discharge Care Plan - Problem: (1) Pulmonary embolism Date of VTE Diagnosis: Aug 16, 2017 Time of VTE Diagnosis: 11:33 Care Plan - Goal(s): Decrease discomfort, Improve function Care Plan - Instructions: Activity Recommendations: limitations as noted below ( TOLERATED) Recommended Home Diet: Regular Provider Instructions: Medication Instructions: * Warfarin is a medicine prescribed to prevent blood clots * Warfarin will thin your blood and help prevent new clots * Take your medications exactly as directed * Never skip a dose. Never take a double dose. If you miss a dose, take it as soon as you remember * It is important for your doctor to monitor your prothrombin time (PT). This is a lab test * Keep your appointment for lab tests Risk of Adverse Drug Reactions and Interactions: * Warfarin increases your risk of bleeding * The food you eat and other medications you take can affect how Warfarin works in your body * Ask your doctor about daily aspirin therapy * It is very important to talk with your doctor about all of the other medicines, antibiotics, vitamins or herbal products that you are taking * All of your medication must be approved by your doctor, including new medicines, as well as medicines you have taken before you started taking Warfarin Diet: * In order for Warfarin to work properly, it is important to keep your intake of Vitamin K as consistent as possible * You should avoid any sudden change in Vitamin K intake * Report any significant changes in your diet or weight to your doctor Call your Doctor if you experience any of the following: * Swelling or Pain in your leg * Sudden, continuous pain deep in a muscle * Pain that worsens when you are active or when you stand still for a long time * Chest Pain * Sudden Shortness of Breath * Rapid or pounding heart beat * Fainting * Dizziness * Cough with blood or bloody sputum * Sweating more than normal * Bruises * heavy or uncontrolled bleeding * Blood in your urine, stool or vomit * Black or tarry stools Caring for Your Self at Home: * Avoid sitting, standing or lying down for long periods without moving your legs and feet * When traveling by car, stop to get out and move around at least once every 3 hours * On long airplane, train or bus rides, get up and move around when possible * If you can't get up, wiggle your toes and tighten your calves to keep your blood moving Follow Up: * It is important for you to keep your follow up appointments with your medical provider. Follow-up Anticoagulation Therapy: Name and Phone number of Health professional/clinic/office monitoring the anticoagulation therapy: Next Date of PT/INR Laboratory Blood Draw: VTE Core Measures Inpt VTE Proph given/why not?: Unfractionated heparin SQ (IV HEPARIN) Reason no anticoag overlap I/P: Treatment not indicated (RECEIVED IV HEPARIN. DISCHARGING ON XARELTO) Reason no anticoag overlap @DC: Treatment not indicated (RECEIVED IV HEPARIN. DISCHARGING ON XARELTO) Follow Up Follow-Up: FOLLOWUP WITH FAMILY DOCTOR ON Aug AT 10:45AM DURATION OF XARELTO PER FAMILY DOCTOR. REPORT TO ER FOR ANY CHANGE IN MEDICAL CONDITION Work Instructions Return To Work: after follow-up Lifting Limitations: NO MORE THAN 5 POUNDS [place] Recommendations: Call your doctor if: * Temperature above 101 degrees * Pain not relieved by pain medicine ordered * There is increased drainage or redness from any incision * You have any unanswered questions or concerns. Your Doctors Instructions noted above were prepared by provider Nicolas Joshi.
[2017-08-17] MEDS: TRAMADOL HCL 50 MG TAB PO PRN (15:49)
--- NOTE | 2017-08-17 17:45 | Progress Note ---
Internal Med Progress Note Date of Service: Aug 17, 2017. Provider Documentation: SUBJECTIVE: ambulated fine without any complaints has some chest pain no sob afebrile no palpitations wanted to go home but later complained of some bleeding from her recent c section OBJECTIVE: Vital Signs-as noted below Exam: General-alert and oriented. Not in distress ENT-normal hearing Neck-no neck masses Lungs-cta b/l no wheezing or crackles Heart-s1 and s2 heard regular rate and rhythm no murmurs Abdomen-soft bowel sounds present non tender no distension Extremities-no edema no erythema Neuro-alert and awake moves extremities Lab data as noted below. 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 DEPRESSION on escitalopram and lithium HYPOTHYROIDISM on levothyroxine DVT PROPHYLAXIS - on xarelto DISPO possible d/c in am if stable Vital Signs: Date Time Temp Pulse Resp B/P (MAP) Pulse Ox O2 Delivery O2 Flow Rate FiO2 08/17/17 16:00 96 Room Air 08/17/17 15:28 36.7 90 18 103/65 (78) 97 Room Air 08/17/17 12:00 95 Room Air 08/17/17 11:55 36.6 86 20 103/62 (76) 96 Room Air 08/17/17 08:16 36.4 72 20 115/81 (92) 97 Room Air 08/17/17 08:00 97 Room Air 08/17/17 04:00 Room Air 08/17/17 03:12 36.5 81 18 100/62 (75) 97 Room Air 08/17/17 00:00 Room Air 08/16/17 23:50 37.1 80 20 120/79 (93) 96 Room Air 08/16/17 20:00 36.6 81 18 107/73 (84) 95 Room Air 08/16/17 20:00 Room Air Lab Results: Results Past 24 Hours Test 08/16/17 20:18 08/17/17 03:55 Range/Units Activated Partial Thromboplast Time 41.1 55.5 21.0-31.0 SECONDS Partial Thromboplastin Ratio 1.6 2.1 White Blood Count 12.03 4.8-10.8 K/uL Red Blood Count 4.19 4.2-5.4 M/uL Hemoglobin 11.9 12.0-16.0 g/dL Hematocrit 35.6 37-47 % Mean Corpuscular Volume 85.0 80-100 fL Mean Corpuscular Hemoglobin 28.4 25-34 pg Mean Corpuscular Hemoglobin Concent 33.4 32-36 g/dl RDW Standard Deviation 38.7 36.4-46.3 fL RDW Coefficient of Variation 12.7 11.5-14.5 % Platelet Count 308 130-400 K/uL Mean Platelet Volume 9.5 7.4-10.4 fL Prothrombin Time 9.9 9.0-12.0 SECONDS Prothromb Time International Ratio 0.9 0.9-1.1 Sodium Level 136 136-145 mmol/L Potassium Level 3.6 3.5-5.1 mmol/L Chloride Level 105 98-107 mmol/L Carbon Dioxide Level 23 21-32 mmol/L Anion Gap 8.0 3-11 mmol/L Blood Urea Nitrogen 19 7-18 mg/dl Creatinine 0.81 0.60-1.20 mg/dl Est Creatinine Clear Calc Drug Dose 87.0 ml/min Estimated GFR () 100.2 Estimated GFR (Non- 86.5 BUN/Creatinine Ratio 22.7 10-20 Random Glucose 129 70-99 mg/dl Calcium Level 8.3 8.5-10.1 mg/dl
--- NOTE | 2017-08-17 18:07 | Medical Consult ---
Consultation Date of Consultation: Aug 17, 2017. Attending Physician: Nicolas Joshi MD Reason for Consultation: S/p hysterectomy, vaginal bleeding History of Present Illness 47yo admitted for treatment of pulmonary embolism. Underwent robotic hysterectomy with Dr Jeronimo 08/05/17 for menorrhagia. Is being treated with Xarelto for PE. Was getting ready for discharge today, and noted bright red vaginal bleeding in the toilet when she went to the bathroom. After that, the next 3 times she wiped, she found red blood on the toilet paper. She is now wearing a pad, and the pad has no bleeding on it. No pain. No postoperative concerns (not in pain , is eating/drinking well, no fever/chills/nausea/vomiting). Past Medical/Surgical History Medical Problems: (1) Cervical strain Status: Acute (2) Depression Status: Acute (3) Headache Status: Acute (4) Pulmonary embolism Status: Acute (5) Suicidal ideation Status: Acute Family History FH: prostate cancer GRANDFATHER Hypertension FATHER Social History Smoking Status: Former Smoker Alcohol Use: occasionally Housing Status: lives with family Allergies Coded Allergies: No Known Allergies (Verified , 08/16/17) Current Inpatient Medications Current Inpatient Medications Medications (Trade) Dose Ordered Sig/Lida Route Start Time Stop Time Status Last Admin Dose Admin Ioversol (Optiray 320) 100 ml UD PRN IV 08/16/17 10:00 08/20/17 09:59 Acetaminophen (Tylenol Tab) 650 mg Q4H PRN PO 08/16/17 12:15 09/15/17 12:14 08/17/17 02:12 650 MG Ondansetron HCl (Zofran Inj) 4 mg Q6H PRN IV 08/16/17 12:15 09/15/17 12:14 Clonazepam (Klonopin Tab) 0.5 mg BID PRN PO 08/16/17 12:30 09/15/17 12:29 Escitalopram Oxalate (Lexapro Tab) 10 mg DAILY PO 08/17/17 09:00 09/16/17 08:59 08/17/17 08:23 10 MG Levothyroxine Sodium (Synthroid Tab) 25 mcg DAILYBB PO 08/17/17 06:00 09/16/17 05:59 08/17/17 06:16 25 MCG [place] Carbonate (Lithobid Tab) 600 mg QAM PO 08/17/17 09:00 09/16/17 08:59 Oxycodone/ Acetaminophen (Percocet 5-325mg Tab) 1 tab Q4H PRN PO 08/16/17 12:30 08/30/17 12:29 08/17/17 11:15 1 TAB Tramadol HCl (Ultram Tab) 50 mg Q6H PRN PO 08/16/17 15:45 09/15/17 15:44 08/17/17 15:49 50 MG Rivaroxaban (Xarelto Tab) 15 mg BID PO 08/17/17 23:00 09/07/17 22:59 Review of Systems Constitutional: No problem reported Cardiovascular: No problem reported Abdomen: No problem reported Musculoskeletal: No problem reported Genitourinary - Female: + vaginal bleeding Neurologic: No problem reported Psychiatric: No problem reported Physical Exam Date Time Temp Pulse Resp B/P (MAP) Pulse Ox O2 Delivery O2 Flow Rate FiO2 08/17/17 16:00 96 Room Air 08/17/17 15:28 36.7 90 18 103/65 (78) 97 Room Air 08/17/17 12:00 95 Room Air 08/17/17 11:55 36.6 86 20 103/62 (76) 96 Room Air 08/17/17 08:16 36.4 72 20 115/81 (92) 97 Room Air 08/17/17 08:00 97 Room Air 08/17/17 04:00 Room Air 08/17/17 03:12 36.5 81 18 100/62 (75) 97 Room Air 08/17/17 00:00 Room Air 08/16/17 23:50 37.1 80 20 120/79 (93) 96 Room Air 08/16/17 20:00 36.6 81 18 107/73 (84) 95 Room Air 08/16/17 20:00 Room Air General Appearance: no apparent distress Abdomen/GI: non tender, soft Genitourinary - Female: external genitalia normal, + pertinent finding (No vaginal bleeding on pad - I did not perform speculum exam, as bleeding has stopped.) Neurologic/Psych: alert, normal mood/affect, oriented x 3 Skin: warm/dry Laboratory Results Last 24 Hours Test 08/16/17 20:18 2/17/18 03:55 Activated Partial Thromboplast Time 41.1 SECONDS 55.5 SECONDS Partial Thromboplastin Ratio 1.6 2.1 White Blood Count 12.03 K/uL Red Blood Count 4.19 M/uL Hemoglobin 11.9 g/dL Hematocrit 35.6 % Mean Corpuscular Volume 85.0 fL Mean Corpuscular Hemoglobin 28.4 pg Mean Corpuscular Hemoglobin Concent 33.4 g/dl RDW Standard Deviation 38.7 fL RDW Coefficient of Variation 12.7 % Platelet Count 308 K/uL Mean Platelet Volume 9.5 fL Prothrombin Time 9.9 SECONDS Prothromb Time International Ratio 0.9 Sodium Level 136 mmol/L Potassium Level 3.6 mmol/L Chloride Level 105 mmol/L Carbon Dioxide Level 23 mmol/L Anion Gap 8.0 mmol/L Blood Urea Nitrogen 19 mg/dl Creatinine 0.81 mg/dl Est Creatinine Clear Calc Drug Dose 87.0 ml/min Estimated GFR () 100.2 Estimated GFR (Non- 86.5 BUN/Creatinine Ratio 22.7 Random Glucose 129 mg/dl Calcium Level 8.3 mg/dl Assessment & Plan I discussed with patient her bleeding - she may have a small amount of spotting per vagina after hysterectomy, and she may have a little bit more than would typically be expected because of the use of blood thinners. Recommend that she continue to monitor vaginal bleeding, and if she is soaking a pad she needs to call the office number for instruction. If she feels weak/dizzy, or is soaking a pad per hour, she needs to report to the emergency department. We reviewed that she may have some bleeding as she becomes more active, as the sutures in the vaginal cuff can sometimes pull on that tissue and cause some bleeding. However, I iterated to the patient that I feel it is very important for her PE to be treated, and that I would recommend that she continue with anticoagulants as prescribed. She has an appointment next week to see her surgeon, Dr Jeronimo in the office. Recommend that she keep that appointment. Reminder to avoid lifting any objects greater than 10-15 lbs. No intercourse, do not place anything in vagina.
[2017-08-17] MEDS: RIVAROXABAN TAB 15 MG TAB PO SCH (23:04)
[2017-08-18 00:10] VITALS: BP 111/75; PULSE 81; TEMP 36.9; O2SAT 95
[2017-08-18] MEDS ORDERED: HEPARIN IV LOW DOSE NO BOLUS SCH (00:30)
[2017-08-18 03:47] VITALS: BP 121/77; PULSE 73; TEMP 37.1; O2SAT 95
[2017-08-18] MEDS: LEVOTHYROXINE 25 MCG TAB PO SCH (06:15)
[2017-08-18] MEDS: LITHIUM CARBONATE SR 300 MG TAB (LITHOBID) PO SCH (07:04)
[2017-08-18 07:40] VITALS: BP 113/78; PULSE 79; TEMP 36.8; O2SAT 95
[2017-08-18 08:00] VITALS: O2SAT 95
[2017-08-18 08:01] LABS: BASO % 0.9 %; EOS % 4.9 %; EOS ABS # 0.54 K/uL (0-0.5); HEMATOCRIT 39.3 % (37-47); HEMOGLOBIN 13.1 g/dL (12.0-16.0); IG# 0.11 K/uL (0.00-0.02); LYMPH % 25.8 %; LYMPH ABS # 2.81 K/uL (1.2-3.4); MEAN CELL VOLUME 85.8 fL (80-100); MEAN CORPUSCULAR HEMOGLOBIN 28.6 pg (25-34); MEAN CORPUSCULAR HGB CONC 33.3 g/dl (32-36); MEAN PLATELET VOLUME 9.5 fL (7.4-10.4); MONO ABS # 0.66 K/uL (0.11-0.59); NEUT % 61.4 %; NEUT ABS # 6.69 K/uL (1.4-6.5); PLATELET COUNT 310 K/uL (130-400); RED CELL DISTRIBUTION WIDTH CV 12.5 % (11.5-14.5); RED CELL DISTRIBUTION WIDTH SD 39.2 fL (36.4-46.3); WHITE BLOOD COUNT 10.91 K/uL (4.8-10.8)
[2017-08-18] MEDS: RIVAROXABAN TAB 15 MG TAB PO SCH (08:46)
[2017-08-18] MEDS: ESCITALOPRAM OXALATE 10 MG TAB PO SCH (08:46)
[2017-08-18 08:48] LABS: CREATININE 0.81 mg/dl (0.60-1.20); POTASSIUM 4.3 mmol/L (3.5-5.1)
[2017-08-18] MEDS ORDERED: RIVA1TAB7 PO (09:55)
[2017-08-18] MEDS ORDERED: OXYC-57 PO (09:55)
[2017-08-18 10:21] VITALS: BP 113/78; PULSE 79; TEMP 36.8; O2SAT 95
--- NOTE | 2017-08-18 16:23 | Progress Note ---
Internal Med Progress Note Date of Service: Aug 18, 2017. Provider Documentation: SUBJECTIVE: ambulated fine without any complaints complains of some chest pain says mild sob on exertion afebrile ok to go home on xarelto OBJECTIVE: Vital Signs-as noted below Exam: General-alert and oriented. Not in distress ENT-normal hearing Neck-no neck masses Lungs-cta b/l no wheezing or crackles Heart-s1 and s2 heard regular rate and rhythm no murmurs Abdomen-soft bowel sounds present non tender no distension Extremities-no edema no erythema Neuro-alert and awake moves extremities Lab data as noted below. 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 hb stable discharged on xarelto DEPRESSION on escitalopram and lithium HYPOTHYROIDISM on levothyroxine DVT PROPHYLAXIS - on xarelto DISPO discharged home Vital Signs: Date Time Temp Pulse Resp B/P (MAP) Pulse Ox O2 Delivery O2 Flow Rate FiO2 08/18/17 10:21 36.8 79 16 95 Room Air 08/18/17 08:00 95 Room Air 08/18/17 07:40 36.8 79 16 113/78 (90) 95 Room Air 08/18/17 04:00 Room Air 08/18/17 03:47 37.1 73 16 121/77 (92) 95 Room Air 08/18/17 00:10 36.9 81 16 111/75 (87) 95 Room Air 08/18/17 00:00 Room Air 08/17/17 20:00 Room Air 08/17/17 19:24 37.3 78 18 124/86 (99) 96 Room Air Lab Results: Results Past 24 Hours Test 08/18/17 07:40 Range/Units White Blood Count 10.91 4.8-10.8 K/uL Red Blood Count 4.58 4.2-5.4 M/uL Hemoglobin 13.1 12.0-16.0 g/dL Hematocrit 39.3 37-47 % Mean Corpuscular Volume 85.8 80-100 fL Mean Corpuscular Hemoglobin 28.6 25-34 pg Mean Corpuscular Hemoglobin Concent 33.3 32-36 g/dl Platelet Count 310 130-400 K/uL Mean Platelet Volume 9.5 7.4-10.4 fL Neutrophils (%) (Auto) 61.4 % Lymphocytes (%) (Auto) 25.8 % Monocytes (%) (Auto) 6.0 % Eosinophils (%) (Auto) 4.9 % Basophils (%) (Auto) 0.9 % Neutrophils # (Auto) 6.69 1.4-6.5 K/uL Lymphocytes # (Auto) 2.81 1.2-3.4 K/uL Monocytes # (Auto) 0.66 0.11-0.59 K/uL Eosinophils # (Auto) 0.54 0-0.5 K/uL Basophils # (Auto) 0.10 0-0.2 K/uL RDW Standard Deviation 39.2 36.4-46.3 fL RDW Coefficient of Variation 12.5 11.5-14.5 % Immature Granulocyte % (Auto) 1.0 % Immature Granulocyte # (Auto) 0.11 0.00-0.02 K/uL Sodium Level 136 136-145 mmol/L Potassium Level 4.3 3.5-5.1 mmol/L Chloride Level 102 98-107 mmol/L Carbon Dioxide Level 22 21-32 mmol/L Anion Gap 12.0 3-11 mmol/L Blood Urea Nitrogen 15 7-18 mg/dl Creatinine 0.81 0.60-1.20 mg/dl Est Creatinine Clear Calc Drug Dose 89.2 ml/min Estimated GFR () 100.2 Estimated GFR (Non- 86.5 BUN/Creatinine Ratio 18.2 10-20 Random Glucose 113 70-99 mg/dl Calcium Level 9.0 8.5-10.1 mg/dl Chemistry Specimen Hemolysis
--- NOTE | 2017-08-18 18:29 | Discharge Summary ---
Discharge Summary Date of Service Aug 18, 2017. Discharge Summary Admission Date: Aug 16, 2017 at 12:15 Discharge Date: Aug 18, 2017 Discharge Disposition: Home Principal Diagnosis: ACUTE PE Secondary Diagnoses/Problems: (1) Depression Status: Chronic (2) Endometriosis Status: Chronic (3) GERD (gastroesophageal reflux disease) Status: Chronic (4) ESTEBAN (obstructive sleep apnea) Status: Chronic Procedures: CTA CHEST: 1. Acute pulmonary emboli in the lobar pulmonary arteries to the lingula and left lower lobes with additional segmental pulmonary emboli in these segments, greatest in the left lower lobe. No CT evidence of right heart strain. 2. No pulmonary infiltrate. 3. Hepatic steatosis. VENOUS DOPPLER: No DVT within the right or left lower extremity. Consultations: ASSISTED LIVING NURSING DIRECTOR Medication Reconciliation New Medications: Rivaroxaban (Xarelto Starter Pack 15 & 20 mg) 1 Tab Tab 15 MG PO UD for 30 Days, 3 Refills XARELTO 15MG PO TWICE DAILY FOR 21 DAYS THEN XARELTO 20MG PO ONCE DAILY Continued Medications: Clonazepam (Klonopin) 0.5 Mg Tab 0.5 MG PO BID PRN for Anxiety Escitalopram (Lexapro) 10 Mg Tab 10 MG PO DAILY, TAB Levothyroxine Sodium (Levothyroxine Sodium) 25 Mcg Tab 25 MCG PO DAILY [place] Carbonate (Lithobid Ext Rel) 300 Mg Tab 600 MG PO QAM Oxycodone/Acetaminophen 5MG/325MG (Percocet 5MG/325MG) Tab 1 TABLET PO Q4H PRN for Pain, #10 TAB (This prescription has been renewed) Sumatriptan Succinate (Imitrex) 50 Mg Tab 50 MG PO PRN, TAB Tramadol (Ultram) 50 Mg Tab 50 MG PO Q8H PRN for Pain, TAB Admission Information HPI (per Admitting provider): 47 year old female who presents to the ED with shortness of breath. Patient underwent elective hysterectomy on 08/05. Patient reports that over the past week she has had increasing shortness of breath and diaphoresis with minimal activity. Over the past couple of days she has had a couple of episodes of chest pressure and chest pain that she describes as a stabbing. She notes pain behind her right knee. No lightheadedness, dizziness, or syncopal events. She reports incisional pain is well controlled. No abdominal pain, nausea, vomiting , or diarrhea. She denies fever and chills. No urinary symptoms. In the ED, patient's CTA chest is showing pulmonary embolism. She is saturating well on room air but becomes tachycardic with minimal activity. 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 Physical Exam (per Admitting): General Appearance: WD/WN, no apparent distress Head: normocephalic, atraumatic Eyes: normal inspection, EOMI, sclerae normal ENT: hearing grossly normal, + pertinent finding (mucous membranes moist) Neck: supple, no JVD, trachea midline Respiratory/Chest: lungs clear, normal breath sounds, no respiratory distress Cardiovascular: regular rate, rhythm, no edema, normal peripheral pulses Abdomen/GI: normal bowel sounds, non tender, soft, no organomegaly Extremities/Musculoskelatal: normal inspection, no calf tenderness, normal capillary refill, + pertinent finding (tenderness behind right knee) Neurologic/Psych: no motor/sensory deficits, alert, normal mood/affect, oriented x 3 Skin: normal color, warm/dry Hospital Course ACUTE PULMONARY EMBOLISM presenting with increasing shortness of breath x 1 week; s/p hysterectomy 2/5 Most likely provoked PE from recent surgery venous Doppler negative CTA chest acute Pe in left lower lob was started on iv heparin choose to be on xarelto was ok for discharge later complained of some bleeding from c section site yesterday 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 Discharge Instructions Discharge Instructions Admission Admission Date: Aug 16, 2017 at 12:15 Admission Diagnosis: Pulmonary Embolism. Discharge Care Plan - Problem: (1) Pulmonary embolism Date of VTE Diagnosis: Aug 16, 2017 Time of VTE Diagnosis: 11:33 Care Plan - Goal(s): Decrease discomfort, Improve function Care Plan - Instructions: Activity Recommendations: limitations as noted below ( TOLERATED) Recommended Home Diet: Regular Provider Instructions: Medication Instructions: * Warfarin is a medicine prescribed to prevent blood clots * Warfarin will thin your blood and help prevent new clots * Take your medications exactly as directed * Never skip a dose. Never take a double dose. If you miss a dose, take it as soon as you remember * It is important for your doctor to monitor your prothrombin time (PT). This is a lab test * Keep your appointment for lab tests Risk of Adverse Drug Reactions and Interactions: * Warfarin increases your risk of bleeding * The food you eat and other medications you take can affect how Warfarin works in your body * Ask your doctor about daily aspirin therapy * It is very important to talk with your doctor about all of the other medicines, antibiotics, vitamins or herbal products that you are taking * All of your medication must be approved by your doctor, including new medicines, as well as medicines you have taken before you started taking Warfarin Diet: * In order for Warfarin to work properly, it is important to keep your intake of Vitamin K as consistent as possible * You should avoid any sudden change in Vitamin K intake * Report any significant changes in your diet or weight to your doctor Call your Doctor if you experience any of the following: * Swelling or Pain in your leg * Sudden, continuous pain deep in a muscle * Pain that worsens when you are active or when you stand still for a long time * Chest Pain * Sudden Shortness of Breath * Rapid or pounding heart beat * Fainting * Dizziness * Cough with blood or bloody sputum * Sweating more than normal * Bruises * heavy or uncontrolled bleeding * Blood in your urine, stool or vomit * Black or tarry stools Caring for Your Self at Home: * Avoid sitting, standing or lying down for long periods without moving your legs and feet * When traveling by car, stop to get out and move around at least once every 3 hours * On long airplane, train or bus rides, get up and move around when possible * If you can't get up, wiggle your toes and tighten your calves to keep your blood moving Follow Up: * It is important for you to keep your follow up appointments with your medical provider. Follow-up Anticoagulation Therapy: Name and Phone number of Health professional/clinic/office monitoring the anticoagulation therapy: Next Date of PT/INR Laboratory Blood Draw: VTE Core Measures Inpt VTE Proph given/why not?: Unfractionated heparin SQ (IV HEPARIN) Reason no anticoag overlap I/P: Treatment not indicated (RECEIVED IV HEPARIN. DISCHARGING ON XARELTO) Reason no anticoag overlap @DC: Treatment not indicated (RECEIVED IV HEPARIN. DISCHARGING ON XARELTO) Follow Up Follow-Up: FOLLOWUP WITH FAMILY DOCTOR ON Aug AT 10:45AM DURATION OF XARELTO PER FAMILY DOCTOR. REPORT TO ER FOR ANY CHANGE IN MEDICAL CONDITION Work Instructions Return To Work: after follow-up Lifting Limitations: NO MORE THAN 5 POUNDS [place] Recommendations: Call your doctor if: * Temperature above 101 degrees * Pain not relieved by pain medicine ordered * There is increased drainage or redness from any incision * You have any unanswered questions or concerns.
== END 2017-08-18 10:30 | disposition home or self-care (01) | DRG 314 ==
LOC: C.EDB 09:28 → C.2T 12:15 → ENRESERV 12:25
PROVIDERS: ADMIT Hospitalist; ATTEND Internal Medicine
DX: I97.89 Other postprocedural complications and disorders of the circulatory system, not elsewhere classified (principal); I26.99 Other pulmonary embolism without acute cor pulmonale; F32.9 Major depressive disorder, single episode, unspecified; K21.9 Gastro-esophageal reflux disease without esophagitis; G47.33 Obstructive sleep apnea (adult) (pediatric); N93.8 Other specified abnormal uterine and vaginal bleeding; Z83.3 Family history of diabetes mellitus; Z87.891 Personal history of nicotine dependence; Z90.710 Acquired absence of both cervix and uterus; Z98.890 Other specified postprocedural states; Z90.49 Acquired absence of other specified parts of digestive tract; E03.9 Hypothyroidism, unspecified; Y83.8 Other surgical procedures as the cause of abnormal reaction of the patient, or of later complication, without mention of misadventure at the time of the procedure; Y92.019 Unspecified place in single-family (private) house as the place of occurrence of the external cause

== ENCOUNTER → 2017-08-27 | Outpatient (CLI) | payer OTHER ==
[~2017-08-27] MED LIST changes: +ESCI10TA17 PO; +RIVA1TAB7 PO
[2017-08-27 14:38] LABS: BASO % 0.5 %; BASO ABS # 0.07 K/uL (0-0.2); EOS % 4.7 %; EOS ABS # 0.63 K/uL (0-0.5); HEMATOCRIT 37.8 % (37-47); HEMOGLOBIN 12.4 g/dL (12.0-16.0); IG# 0.07 K/uL (0.00-0.02); LYMPH % 30.4 %; LYMPH ABS # 4.04 K/uL (1.2-3.4); MEAN CELL VOLUME 84.4 fL (80-100); MEAN CORPUSCULAR HEMOGLOBIN 27.7 pg (25-34); MEAN CORPUSCULAR HGB CONC 32.8 g/dl (32-36); MONO % 6.5 %; MONO ABS # 0.86 K/uL (0.11-0.59); NEUT % 57.4 %; NEUT ABS # 7.61 K/uL (1.4-6.5); PLATELET COUNT 411 K/uL (130-400); RED CELL DISTRIBUTION WIDTH CV 12.9 % (11.5-14.5); RED CELL DISTRIBUTION WIDTH SD 39.4 fL (36.4-46.3); WHITE BLOOD COUNT 13.28 K/uL (4.8-10.8)
== END | disposition home or self-care (01) ==
LOC: C.LAB1850 12:52
PROVIDERS: ATTEND Obstetrics & Gynecology
DX: N93.9 Abnormal uterine and vaginal bleeding, unspecified (principal)

== ENCOUNTER 2020-05-09 16:45 | Inpatient (IN) ==
--- OUTSIDE RECORDS SUMMARY | 2020-05-09 16:48 | External Medical Summary | Continuity of Care Document ---
:1970 Author Name Fatoumata Meng, Provider Address Unavailable Unavailable , Care Team Providers Name Role Phone Phani Meng, Jacki [email or web address] [place], [place] TODD REYNA III Unavailable Unavailable Unavailable Unavailable Unavailable Assessments Assessed Problems:Encounter for routine gynecological examination with Papanicolaou smear of cervixFormer smokerUrinary symptom or sign Problems Mood Lability Herpes simplex (054.9) (B00.9) Depression with anxiety (300.4) (F41.8) Fatigue (780.79) (R53.83) Dysplastic nevus (216.9) (D23.9) Urinary symptom or sign (788.99) (R39.9) Encounter for routine gynecological exam ination with Papanicolaou smear of cervix (V72.31) (Z01.419) Pulmonary embolism (415.19) (I26.99) Vaginal bleeding (623.8) (N93.9) Female pelvic pain (625.9) (R10.2) Menorrhagia (626.2) (N92.0) Diverticulosis of colon (562.10) (K57.30) Encounter for routine gynecological examination (V72.31) (Z0 1.419) Diverticulitis of colon (562.11) (K57.32) Premenstrual syndrome (625.4) (N94.3) Shortness of breath (786.05) (R06.02) Chest pain (786.50) (R07.9) Allergies and Adverse Reactions No Known Drug Allergies (Allergy) Wheat (Allergy) Status: Denied Medications Triamcinolone Acetonide 0.1 % External Cream; USE DIRECTE D Start: 30-May-2017 Refills: 0 clonazePAM 1 MG Oral Tablet Refills: 0 Zoloft TABS Refills: 0 Remeron TABS Refills: 0 Synthroid 25 MCG Oral Tablet; TAKE 1 TABLET DAILY DIRECTE D. Start: 25-Dec-2016 Refills: 0 Procedures History of Cholecystectomy Status: Compl eted History of Appendectomy Status: Complete d History of Ovarian Cystectomy Status: Co mpleted History of Oral Surgery Tooth Extraction Status: Completed History of Laser Ablation Of Cervix Stat us: Completed History of Small Bowel Resection Status: Completed History of hysterectomy total Status: Co mpleted Immunizations Immunizations not documented Social History - Smoking Status Ex-smoker Interventions Labs/Procedures/ImagingTobacco Use Screening; Done: 19 Sep 2018Urine Culture; Done: 19 Sep 2018InstructionsHigh-BMI is above normal parameters and patient education given regarding risks of abnormal BMI and associated educational information links. Patient offered dietitian referral.; Done: 19 Sep 2018 Follow-ups/ReferralsFollow-up visit in 1 year; Done: 19 Sep 2018 Plan of Treatment Planned Observations Planned Goals not documented Results No Known Results Results not documented Encounters Appointment; Jacki Jeronimo M.D. 19-Sep-2018 13:15 Encounter Diagnosis: Problem not documented
--- OUTSIDE RECORDS SUMMARY | 2020-05-09 16:49 | External Medical Summary | Continuity of Care Document ---
:1970 Author Name Fatoumata Meng, Provider Address Unavailable Unavailable , Care Team Providers Name Role Phone Phani Meng, [email or web address] [place] TODD REYNA III Unavailable Unavailable Unavailable Unavailable Unavailable Assessments Assessed Problems:Encounter for routine gynecological examination with Papanicolaou smear of cervixFormer smokerUrinary symptom or sign Problems Mood Lability Herpes simplex (054.9) (B00.9) Depression with anxiety (300.4) (F41.8) Fatigue (780.79) (R53.83) Dysplastic nevus (216.9) (D23.9) Premenstrual syndrome (625.4) (N94.3) Diverticulitis of colon (562.11) (K57.32) Encounter for routine gynecological examination (V72.31) (Z0 1.419) Diverticulosis of colon (562.10) (K57.30) Menorrhagia (626.2) (N92.0) Female pelvic pain (625.9) (R10.2) Chest pain (786.50) (R07.9) Shortness of breath (786.05) (R06.02) Vaginal bleeding (623.8) (N93.9) Pulmonary embolism (415.19) (I26.99) Encounter for routine gynecological exam ination with Papanicolaou smear of cervix (V72.31) (Z01.419) Urinary symptom or sign (788.99) (R39.9) Allergies and Adverse Reactions No Known Drug Allergies (Allergy) Wheat (Allergy) Status: Denied Medications clonazePAM 1 MG Oral Tablet Refills: 0 Synthroid 25 MCG Oral Tablet; TAKE 1 TABLET DAILY DIRECTE D. Start: 25-Dec-2016 Refills: 0 Triamcinolone Acetonide 0.1 % External Cream; USE DIRECTE D Start: 30-May-2017 Refills: 0 Remeron TABS Refills: 0 Zoloft TABS Refills: 0 Procedures History of Cholecystectomy Status: [...]
[2020-05-09 17:52] LABS: Basophils # (auto) 0.06 K/uL (0-0.2); Basophils % (auto) 0.4 %; Eosinophils % (auto) 1.5 %; Hematocrit (blood only) 47.6 % (37-47); Hemoglobin 15.7 g/dL (12.0-16.0); Immature Granulocytes # (auto) 0.08 K/uL (0.00-0.02); Immature Granulocytes % (auto) 0.6 %; Lymphocytes # (auto) 3.37 K/uL (1.2-3.4); Lymphocytes % (auto) 24.9 %; Mean Corpuscular Hemoglobin 28.2 pg (25-34); Mean Corpuscular Volume 85.6 fL (80-100); Mean Platelet Volume 9.9 fL (7.4-10.4); Monocytes # (auto) 0.84 K/uL (0.11-0.59); Monocytes % (auto) 6.2 %; Neutrophils % (auto) 66.4 %; Platelet Count 307 K/uL (130-400); RDW Coefficient of Variation 13.3 % (11.5-14.5); RDW Standard Deviation 41.9 fL (36.4-46.3); Red Blood Count 5.56 M/uL (4.2-5.4); White Blood Count 13.55 K/uL (4.8-10.8)
[2020-05-09 17:56] LABS: Appearance Urine Clear (Clear); Bacteria Urine Automated Negative (Negative); Bilirubin Urine Negative (Negative); Blood Urine Negative (Negative); Color Urine Dark Yellow; Epithelial Cell Urine Auto >30 /lpf (0-5); Glucose Urine UA Negative (Negative); Ketones Urine Negative (Negative); Leukocyte Esterase Urine 1+ (Negative); Nitrite Urine Negative (Negative); Protein Urine Negative (Negative); RBC Urine Automated 0-4 /hpf (0-4); Specific Gravity Urine 1.027 (1.000-1.030); Urobilinogen Urine Negative (Negative)
[2020-05-09 18:06] LABS: Calcium Oxalate Crystals Urine Present (None Prsent)
[2020-05-09 18:17] LABS: Albumin Level 4.2 gm/dl (3.4-5.0); BUN Creatinine Ratio 15.7 (10-20); Calcium 9.6 mg/dl (8.5-10.1); Creatinine Clr Calc Pharmacy 70.9 ml/min; Est GFR (African American) 74.3; Est GFR (Non-African American) 64.1; Potassium 3.8 mmol/L (3.5-5.1)
[2020-05-09 18:20] LABS: Bilirubin,Total 0.3 mg/dl (0.2-1); Globulin 4.2 gm/dl (2.5-4.0); Total Protein 8.4 gm/dl (6.4-8.2)
[2020-05-09] MEDS ORDERED: SODIUM CHLORIDE 0.9% 1000ML 1,000 ML IV ONE (18:26)
[2020-05-09] MEDS ORDERED: ONDANSETRON INJ 2 MG/ML 2 ML VIAL IV STA (18:26)
[2020-05-09] MEDS: fentaNYL citrate 100 MCG/2 ML VIAL IV PRN ×2 (18:45→19:17)
[2020-05-09] MEDS ORDERED: IOVERSOL 100ml IV ONE (18:54)
--- NOTE | 2020-05-09 19:01 | CT Scan Report ---
CT SCAN OF THE BRAIN WITHOUT IV CONTRAST CLINICAL HISTORY: Headache. Vomiting. COMPARISON STUDY: CT of the brain dated 06/26/2015. TECHNIQUE: Unenhanced axial CT scan of the brain is performed from the vertex to the skull base. A d ose lowering technique was utilized adhering to the principles of ALARA. FINDINGS: Brain parenchyma: The brain parenchyma is normal in appearance. There is no hemorrhage, mass effect, or evidence of acute territorial ischemia by CT criteria. Grace-white matter differentiation is preser paulo. No extra-axial fluid collection is seen. Ventricles, sulci, cisterns: Normal in configuration. Intracranial vasculature: The visualized intracranial vasculature at the skull base is normal in appe arance. Calvarium: Unremarkable. Sinuses and mastoids: The visualized paranasal sinuses are clear. The mastoid air cells are well pneu matized. Orbits: The bony orbits are grossly intact. IMPRESSION: No acute intracranial abnormality. ACT 112: Negative or not required by law. Electronically signed by: Joe Corado M.D. 05/09/2020 7:00 PM
--- NOTE | 2020-05-09 19:11 | CT Scan Report ---
CT SCAN OF THE ABDOMEN AND PELVIS WITH IV CONTRAST CLINICAL HISTORY: Nausea and vomiting. Upper abdominal pain. COMPARISON STUDY: Abdominal CT dated 06/01/2014. TECHNIQUE: Following the IV administration of 94 cc of Optiray 320, CT scan of the abdomen and pelvi s is performed from the lung bases to the proximal femora. Images are reviewed in the axial, sagittal , and coronal planes. IV contrast was administered without complication. A dose lowering technique wa s utilized adhering to the principles of ALARA. CT DOSE: 2395.08 mGy.cm FINDINGS: Lung bases: The heart is normal in size and without pericardial effusion. The lung bases are clear. B ilateral breast implants are in place. Liver: The contrast-enhanced liver is enlarged, measuring 20.6 cm in length. The liver demonstrates d iffusely diminished attenuation consistent with severe hepatic steatosis. There is no intrahepatic bi liary ductal dilatation. The hepatic veins and portal veins are patent. Gallbladder: Surgically absent noting clips in the gallbladder fossa. Spleen: Normal in size and attenuation. Pancreas: Unremarkable. Adrenal glands: Unremarkable. Kidneys: The contrast enhanced kidneys are normal in size and without hydronephrosis. The kidneys enh ance symmetrically. A 12 mm complex low-attenuation lesion arises from the lower pole of the right ki dney. Abdominal vasculature: The abdominal aorta is normal in course and caliber. Bowel: There is postoperative change from sigmoid colon resection with colocolonic anastomosis. No tiffany wel obstruction is seen. There is mild to moderate diverticulosis of the remaining colon without CT e vidence of acute diverticulitis. The appendix is not identified and reported surgically absent. Peritoneum: There is no intraperitoneal free air or abdominal ascites. There is a fat-containing umbi lical hernia. Lymphadenopathy: None. Pelvic viscera: The bladder is decompressed and grossly unremarkable. The uterus is surgically absent . No adnexal lesion is seen. 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 Skeletal structures: The skeletal structures are osteopenic. There is mild lumbosacral spondylosis. N o lytic or blastic lesions are seen. IMPRESSION: 1. No acute infectious or inflammatory findings are identified in the abdomen or pelvis. 2. Hepatomegaly and severe hepatic steatosis. 3. There is postoperative change from sigmoid colon resection with colocolonic anastomosis. No bowel obstruction is seen. 4. There is mild to moderate diverticulosis of the remaining colon without CT evidence of acute diver ticulitis. 5. A 12 mm indeterminant low-attenuation lesion arises from the lower pole of the right kidney. This does not meet CT criteria for a simple cyst and is new from 06/01/2014. Follow-up with a nonemergent c ontrast enhanced renal protocol MRI is recommended for further assessment. 6. 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 This is of indeterminant chronicity and significa nce. 7. Additional findings as above. ACT 112: Negative or not required by law. Electronically signed by: Joe Corado M.D. 05/09/2020 7:10 PM
--- NOTE | 2020-05-09 19:37 | Emergency Department Note ---
Impression & Plan Abdominal pain, Headache, Urinary tract infection ED Provider Note NAME: ZEFERINO PICKARD AGE: 50 SEX: F : 1970 ARRIVES VIA: Walk-In INFORMANT: Patient, ED PROVIDER(S): Silas Reyes DO CHIEF COMPLAINT: Abdominal pain HPI: The patient is a 50-year-old female who presented to the emergency department with multiple complaints. The patient was experiencing abdominal pain as well as chest pain as well as headache. She describes left-sided headache which is moderate to severe. She also describes diffuse upper abdominal pain. She states the pain is been constant over the last few hours. She denies having any vomiting but does complain of nausea. She denies having any fever. She has had no coughing or upper respiratory symptoms. She is had no covert 19 exposure as far she knows. The patient was seen by her primary care physician and sent to the emergency department for further evaluation. ROS: See above HPI for pertinent positives & negatives. A total of 10 systems reviewed and were otherwise negative. PAST MEDICAL HISTORY: See Below PAST SURGICAL HISTORY: See Below FAMILY HISTORY: See Below SOCIAL HISTORY: See Below HOME MEDICATIONS: See Below ALLERGIES: See Below VITALS: See Below PHYSICAL EXAMINATION: GENERAL: Patient is awake alert in no acute distress patient is resting comfortably and showing no signs of anxiety EYES: The conjunctivae are clear. The pupils are round and reactive. EARS, NOSE, MOUTH AND THROAT: The nose is without any evidence of any deformity. NECK: The neck is nontender and supple. RESPIRATORY: Normal respiratory effort is noted there is no evidence of wheezing rhonchi or rales CARDIOVASCULAR: Regular rate and rhythm noted there no murmurs rubs or gallops normal S1 normal S2. GASTROINTESTINAL: The abdomen is moderately distended and diffusely tender. There is no guarding rigidity. BACK: No midline tenderness or or step-off noted range of motion in flexion extension as well as rotation no signs of muscle spasm noted MUSCULOSKELETAL/EXTREMITIES: There is no evidence of gross deformity full range of motion is noted in the hips and shoulders. SKIN: There is no obvious evidence of any rash. There are no petechiae, pallor or cyanosis noted. NEUROLOGIC: Patient is awake alert and oriented x3 strength is symmetric patellar reflexes are 2+ bilaterally MEDICAL DECISION MAKING: The patient is a 50-year-old female who presented to the emergency department at the request of her primary care physician. The patient was experiencing abdominal pain. She also complained of significant headache. She denies having any vomiting. She is had no fever. Her pain was very significant on physical exam. This reason further laboratory and radiographic studies were obtained. I discussed the patient's laboratory and radiographic studies with her. She was treated with IV antibiotics for presumed urinary tract infection noted on urinalysis. Because of her ongoing pain despite significant pain control in the emergency department I did discuss her case with the on-call [facility] ist. They have agreed to evaluate the patient in the emergency department for further management and disposition. Triage Nursing notes reviewed. Prior medical records reviewed Vital Signs: reviewed and remarkable for no significant abnormalities Differential diagnosis: Etiologies such as appendicitis, diverticulitis, obstruction, inflammatory bowel disease, renal colic, PUD, biliary pathology, pancreatitis, mesenteric ischemia, aortic pathology, infections, genitourinary, UTI, perforated viscus, as well as others were entertained. ER treatment provided: See below Diagnostics interpreted by me: ECG: EKG was obtained in the emergency department. My interpretation is normal sinus rhythm at 81 bpm. There is no ectopy. There is no acute ST segment abnormalities noted. This was compared to a tracing from July [id number]. No significant changes were noted. Cardiac Monitoring: An order was placed for continuous cardiac monitoring. The monitor shows a rate of 88 beats per minute with sinus rhythm. Laboratory studies: As stated above and show below. Imaging studies: See below Consultation(s): 2119: I discussed this case with Dr. Whitaker. Past Med/Surg History Medical History (Updated 05/09/20 @ 21:21 by Silas Reyes DO) Anxiety Depression Endometriosis GERD (gastroesophageal reflux disease) ESTEBAN (obstructive sleep apnea) Pulmonary embolism Surgical History (Updated 05/09/20 @ 19:35 by Silas Reyes DO) H/O wisdom tooth extraction History of appendectomy History of hysterectomy History of partial colectomy Hx of cholecystectomy Social History Smoking Status: Never smoker Preferred Language: [place] Feels Safe at Home: Yes Allergies Allergies Allergy/AdvReac Type Severity Reaction Status Date / Time No Known Allergies Allergy Verified 07/03/18 15:14 Home Meds Home Medications Medication Instructions Recorded Confirmed clonazepam [Klonopin] 0.5 mg PO TID PRN 07/03/18 07/03/18 hydrocodone-acetaminophen [Vicodin 1 tab PO Q6 PRN 07/03/18 07/03/18 HP] ibuprofen [Advil] 200 mg PO QID PRN 07/03/18 07/03/18 levothyroxine [Synthroid] 25 mg PO DAILY 07/03/18 07/03/18 mirtazapine [Remeron] 15 mg PO HS 07/03/18 07/03/18 multivitamin with minerals 1 tab PO DAILY 07/03/18 07/03/18 [Hair,Skin and Nails] sertraline [Zoloft] 50 mg PO DAILY 07/03/18 07/03/18 tramadol [Ultram] 50 mg PO Q6 PRN 07/03/18 07/03/18 triamcinolone acetonide 1 applic TOPICAL BID PRN 07/03/18 07/03/18 Results & Data (ED) Vital Signs Vital Signs - 24 hr 05/09/20 16:55 05/09/20 18:49 05/09/20 20:44 Temperature 36.9 C Temperature Source Oral Pulse Rate 103 H Pulse Rate [Right Finger] 80 84 Respiratory Rate 18 18 16 Respiratory Effort / Characteristics Non-Labored Spontaneous Non-Labored Respiratory Depth Normal Normal Blood Pressure 131/90 Blood Pressure [Left Arm] 133/84 117/70 Blood Pressure Mean 103 Blood Pressure Mean [Left Arm] 100 85 Blood Pressure Position Sitting Blood Pressure Position [Left Arm] Lying Pulse Oximetry 96 97 95 Oxygen Delivery Method Room Air Room Air Room Air Sepsis Recent Fever Within 48 Hours No Sepsis New/Unexplained Change in Mental Status No Sepsis Action Taken by Nursing No Action Required Home Medications Current Medication List: was personally reviewed by me Laboratory Data Attestation: I reviewed the patient's lab results. Result diagrams: 05/09/20 17:42 05/09/20 17:42 Lab Results 05/09/20 05/09/20 05/09/20 Range/Units 17:33 17:42 17:42 WBC 13.55 H (4.8-10.8) K/uL RBC 5.56 H (4.2-5.4) M/uL Hgb 15.7 (12.0-16.0) g/dL Hct 47.6 H (37-47) % MCV 85.6 (80-100) fL MCH 28.2 (25-34) pg MCHC 33.0 (32-36) g/dL RDW Std Deviation 41.9 (36.4-46.3) fL RDW Coeff of Aysha 13.3 (11.5-14.5) % Plt Count 307 (130-400) K/uL MPV 9.9 (7.4-10.4) fL Immature Gran % (Auto) 0.6 % Neut % (Auto) 66.4 % Lymph % (Auto) 24.9 % [place] % (Auto) 6.2 % Eos % (Auto) 1.5 % Baso % (Auto) 0.4 % Neut # (Auto) 9.00 H (1.4-6.5) K/uL Lymph # (Auto) 3.37 (1.2-3.4) K/uL [place] # (Auto) 0.84 H (0.11-0.59) K/uL Eos # (Auto) 0.20 (0-0.5) K/uL Baso # (Auto) 0.06 (0-0.2) K/uL Immature Gran # (Auto) 0.08 H (0.00-0.02) K/uL Sodium 137 (136-145) mmol/L Potassium 3.8 (3.5-5.1) mmol/L Chloride 106 (98-107) mmol/L Carbon Dioxide 24 (21-32) mmol/L Anion Gap 7.0 (3-11) BUN 16 (7-18) mg/dl Creatinine 1.02 (0.6-1.2) mg/dl Est Cr Clr Drug Dosing 70.9 ml/min Est GFR ( Amer) 74.3 Est GFR (Non-Af Amer) 64.1 BUN/Creatinine Ratio 15.7 (10-20) Glucose 106 H (70-99) mg/dl Calcium 9.6 (8.5-10.1) mg/dl Total Bilirubin 0.3 (0.2-1) mg/dl AST 48 H (15-37) U/L ALT 88 H (12-78) U/L Alkaline Phosphatase 129 H (45-117) U/L Troponin I (0-0.045) ng/ml Total Protein 8.4 H (6.4-8.2) gm/dl Albumin 4.2 (3.4-5.0) gm/dl Globulin 4.2 H (2.5-4.0) gm/dl Albumin/Globulin Ratio 1.0 (0.9-2) Lipase 132 (73-393) U/L Urine Color Dark Yellow Urine Appearance Clear (Clear) Urine pH 5.0 (4.5-7.5) Ur Specific [place] 1.027 (1.000-1.030) Urine Protein Negative (Negative) Urine Glucose (UA) Negative (Negative) Urine Ketones Negative (Negative) Urine Blood Negative (Negative) Urine Nitrite Negative (Negative) Urine Bilirubin Negative (Negative) Urine Urobilinogen Negative (Negative) Ur Leukocyte Esterase 1+ H (Negative) Urine WBC (Auto) 10-30 H (0-5) /hpf Urine RBC (Auto) 0-4 (0-4) /hpf U Hyaline Cast (Auto) 1-5 (0-5) /lpf U Epithel Cells (Auto) >30 H (0-5) /lpf Urine Bacteria (Auto) Negative (Negative) Urine Crystals Calcium Oxalate A (None Prsent) Calcium Oxalate Crystal Present A (None Prsent) 05/09/20 Range/Units 17:42 WBC (4.8-10.8) K/uL RBC (4.2-5.4) M/uL Hgb (12.0-16.0) g/dL Hct (37-47) % MCV (80-100) fL MCH (25-34) pg MCHC (32-36) g/dL RDW Std Deviation (36.4-46.3) fL RDW Coeff of Aysha (11.5-14.5) % Plt Count (130-400) K/uL MPV (7.4-10.4) fL Immature Gran % (Auto) % Neut % (Auto) % Lymph % (Auto) % [place] % (Auto) % Eos % (Auto) % Baso % (Auto) % Neut # (Auto) (1.4-6.5) K/uL Lymph # (Auto) (1.2-3.4) K/uL [place] # (Auto) (0.11-0.59) K/uL Eos # (Auto) (0-0.5) K/uL Baso # (Auto) (0-0.2) K/uL Immature Gran # (Auto) (0.00-0.02) K/uL Sodium (136-145) mmol/L Potassium (3.5-5.1) mmol/L Chloride (98-107) mmol/L Carbon Dioxide (21-32) mmol/L Anion Gap (3-11) BUN (7-18) mg/dl Creatinine (0.6-1.2) mg/dl Est Cr Clr Drug Dosing ml/min Est GFR ( Amer) Est GFR (Non-Af Amer) BUN/Creatinine Ratio (10-20) Glucose (70-99) mg/dl Calcium (8.5-10.1) mg/dl Total Bilirubin (0.2-1) mg/dl AST (15-37) U/L ALT (12-78) U/L Alkaline Phosphatase (45-117) U/L Troponin I < 0.015 (0-0.045) ng/ml Total Protein (6.4-8.2) gm/dl Albumin (3.4-5.0) gm/dl Globulin (2.5-4.0) gm/dl Albumin/Globulin Ratio (0.9-2) Lipase (73-393) U/L Urine Color Urine Appearance (Clear) Urine pH (4.5-7.5) Ur Specific [place] (1.000-1.030) Urine Protein (Negative) Urine Glucose (UA) (Negative) Urine Ketones (Negative) Urine Blood (Negative) Urine Nitrite (Negative) Urine Bilirubin (Negative) Urine Urobilinogen (Negative) Ur Leukocyte Esterase (Negative) Urine WBC (Auto) (0-5) /hpf Urine RBC (Auto) (0-4) /hpf U Hyaline Cast (Auto) (0-5) /lpf U Epithel Cells (Auto) (0-5) /lpf Urine Bacteria (Auto) (Negative) Urine Crystals (None Prsent) Calcium Oxalate Crystal (None Prsent) Administered Medications Fentanyl Citrate (Fentanyl Citrate 100 Mcg/2 Ml Vial) 50 mcg IV Q15M PRN PRN Reason: Pain Stop: 05/23/20 18:25 Last Admin: 05/09/20 19:17 Dose: 50 mcg Documented by: [id number] Admin: 05/09/20 18:45 Dose: 50 mcg Documented by: [id number] Morphine Sulfate (Morphine Sulfate 4 Mg/Ml 1 Ml Carp\Vial) 4 mg IV Q30M PRN PRN Reason: Pain Stop: 05/23/20 20:08 Last Admin: 05/09/20 20:41 Dose: 4 mg Documented by: [id number] Discontinued Medications Sodium Chloride (Nss 1000ml) 1,000 mls @ 999 mls/hr IV .Q1H1M ONE Stop: 05/09/20 19:26 Last Infusion: 05/09/20 19:50 Dose: 0 mls/hr Documented by: [id number] Admin: 05/09/20 18:45 Dose: 999 mls/hr Documented by: [id number] Promethazine HCl (Phenergan) 12.5 mg in 50.5 mls @ 202 mls/hr IV NOW STA Stop: 05/09/20 20:23 Last Infusion: 05/09/20 21:51 Dose: 0 mls/hr Documented by: [id number] Admin: 05/09/20 20:41 Dose: 202 mls/hr Documented by: [id number] Ceftriaxone Sodium (Rocephin) 1,000 mg in 50 mls @ 100 mls/hr IV NOW STA Stop: 05/09/20 20:45 Last Infusion: 05/09/20 21:50 Dose: 0 mls/hr Documented by: [id number] Admin: 05/09/20 20:42 Dose: 100 mls/hr Documented by: [id number] Ioversol (Ioversol 100ml) 94 ml IV ONCE ONE Stop: 05/09/20 18:55 Last Admin: 05/09/20 18:54 Dose: 94 ml Documented by: [id number] Ondansetron HCl (Ondansetron Inj 2 Mg/Ml 2 Ml Vial) 4 mg IV NOW STA Stop: 05/09/20 18:27 Last Admin: 05/09/20 18:45 Dose: 4 mg Documented by: [id number] Imaging Data Radiologist's Impression: Patient: ZEFERINO PICKARD Admit Date: 05/09/20 MR#: [id number] Address1: [facility] [place] Acct ID:[id number] Address2: Date: 1970 [facility] Zip: [place] [address] Age: 50 Location: ED Sex: F Room/Bed: Att Phy: Diagnosis: BLURRED VISION, ABD PAIN, DIARRHEA Liza Phy: Joey Crockett III, MD Service Date: 05/09/20 Fam Phy: Interpreting Phy: Joe Corado MD Admit Phy: Ordering Phy: Silas Reyes DO cc: ~ CT SCAN OF THE BRAIN WITHOUT IV CONTRAST CLINICAL HISTORY: Headache. Vomiting. COMPARISON STUDY: CT of the brain dated 06/26/2015. TECHNIQUE: Unenhanced axial CT scan of the brain is performed from the vertex to the skull base. A dose lowering technique was utilized adhering to the principles of ALARA. FINDINGS: Brain parenchyma: The brain parenchyma is normal in appearance. There is no hemorrhage, mass effect, or evidence of acute territorial ischemia by CT criteria. Grace-white matter differentiation is preserved. No extra-axial fluid collection is seen. Ventricles, sulci, cisterns: Normal in configuration. Intracranial vasculature: The visualized intracranial vasculature at the skull base is normal in appearance. Calvarium: Unremarkable. Sinuses and mastoids: The visualized paranasal sinuses are clear. The mastoid air cells are well pneumatized. Orbits: The bony orbits are grossly intact. IMPRESSION: No acute intracranial abnormality. ACT 112: Negative or not required by law. Electronically signed by: Joe Corado M.D. 05/09/2020 7:00 PM Dictated: 05/09/201857 Transcribed: 05/09/201857 Patient: ZEFERINO PICKARD Admit Date: 05/09/20 MR#: [id number] Address1: [address] [place] [address] Acct ID:[id number] Address2: Date: 1970 [facility] Zip: [place] [address] Age: 50 Location: ED Sex: F Room/Bed: Att Phy: Diagnosis: BLURRED VISION, ABD PAIN, DIARRHEA Liza Phy: Joey Crockett III, MD Service Date: 05/09/20 Zbigniew Phy: Interpreting Phy: Joe Corado MD Admit Phy: Ordering Phy: Silas Reyes DO cc: ~ CT SCAN OF THE ABDOMEN AND PELVIS WITH IV CONTRAST CLINICAL HISTORY: Nausea and vomiting. Upper abdominal pain. COMPARISON STUDY: Abdominal CT dated 06/01/2014. TECHNIQUE: Following the IV administration of 94 cc of Optiray 320, CT scan of the abdomen and pelvis is performed from the lung bases to the proximal femora. Images are reviewed in the axial, sagittal, and coronal planes. IV contrast was administered without complication. A dose lowering technique was utilized adhering to the principles of ALARA. CT DOSE: 2395.08 mGy.cm FINDINGS: Lung bases: The heart is normal in size and without pericardial effusion. The lung bases are clear. Bilateral breast implants are in place. Liver: The contrast-enhanced liver is enlarged, measuring 20.6 cm in length. The liver demonstrates diffusely diminished attenuation consistent with severe hep atic steatosis. There is no intrahepatic biliary ductal dilatation. The hepatic veins and portal veins are patent. Gallbladder: Surgically absent noting clips in the gallbladder fossa. Spleen: Normal in size and attenuation. Pancreas: Unremarkable. Adrenal glands: Unremarkable. Kidneys: The contrast enhanced kidneys are normal in size and without hydronephrosis. The kidneys enhance symmetrically. A 12 mm complex low- attenuation lesion arises from the lower pole of the right kidney. Abdominal vasculature: The abdominal aorta is normal in course and caliber. Bowel: There is postoperative change from sigmoid colon resection with colocolonic anastomosis. No bowel obstruction is seen. There is mild to moderate diverticulosis of the remaining colon without CT evidence of acute diverticuli tis. The appendix is not identified and reported surgically absent. Peritoneum: There is no intraperitoneal free air or abdominal ascites. There is a fat-containing umbilical hernia. Lymphadenopathy: None. Pelvic viscera: The bladder is decompressed and grossly unremarkable. The uterus is surgically absent. No adnexal lesion is seen. 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 Skeletal structures: The skeletal structures are osteopenic. There is mild lumbosacral spondylosis. No lytic or blastic lesions are seen. IMPRESSION: 1. No acute infectious or inflammatory findings are identified in the abdomen or pelvis. 2. Hepatomegaly and severe hepatic steatosis. 3. There is postoperative change from sigmoid colon resection with colocolonic anastomosis. No bowel obstruction is seen. 4. There is mild to moderate diverticulosis of the remaining colon without CT evidence of acute diverticulitis. 5. A 12 mm indeterminant low-attenuation lesion arises from the lower pole of the right kidney. This does not meet CT criteria for a simple cyst and is new from 06/01/2014. Follow-up with a nonemergent contrast enhanced renal protocol MRI is recommended for further assessment. 6. 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 This is of indeterminant chronicity and significance. 7. Additional findings as above. ACT 112: Negative or not required by law. Electronically signed by: Joe Corado M.D. 05/09/2020 7:10 PM Dictated: 05/09/201900 Transcribed: 05/09/201900 Blood Pressure Blood Pressure Findings: Normal blood pressure Discharge Plan Visit Data Chief Complaint: Abdominal Pain Stated Complaint: BLURRED VISION, ABD PAIN, DIARRHEA ED Provider: Silas Reyes Discharge Problem: Abdominal pain, Headache, Urinary tract infection Patient Disposition: Being Evaluated by Hospitalist Condition: Good Forms Stand Alone Forms: Roomlr Prescriptions Prescriptions: No Action clonazepam [Klonopin] 0.5 mg tablet 0.5 mg PO TID PRN (Reason: Anxiety) RF: 0 levothyroxine [Synthroid] 25 mcg tablet 25 mg PO DAILY RF: 0 sertraline [Zoloft] 50 mg tablet 50 mg PO DAILY RF: 0 hydrocodone-acetaminophen [Vicodin HP] 10-300 mg tablet 1 tab PO Q6 PRN (Reason: Pain) RF: 0 tramadol [Ultram] 50 mg tablet 50 mg PO Q6 PRN (Reason: Pain) RF: 0 triamcinolone acetonide 0.1 % Cream 1 applic TOPICAL BID PRN (Reason: Rash) RF: 0 ibuprofen [Advil] 200 mg Tablet 200 mg PO QID PRN (Reason: Headache) RF: 0 mirtazapine [Remeron] 15 mg tablet 15 mg PO HS RF: 0 multivitamin with minerals [Hair,Skin and Nails] Tablet 1 tab PO DAILY RF: 0 Referrals Referrals: Joey Crockett MD [Primary Care Provider] - Discharge Problem: Abdominal pain Qualifiers: Abdominal location: generalized Qualified Code(s): R10.84 - Generalized abdominal pain Headache Qualifiers: Headache type: unspecified Headache chronicity pattern: acute headache Intractability: not intractable Qualified Code(s): R51.9 - Headache, unspecified Urinary tract infection Qualifiers: Urinary tract infection type: site unspecified Hematuria presence: without hematuria Qualified Code(s): N39.0 - Urinary tract infection, site not specified
[2020-05-09] MEDS ORDERED: PROMETHAZINE 12.5 MG/50.5 ML BAG IV STA (20:09)
[2020-05-09] MEDS ORDERED: cefTRIAXone SODIUM 1,000 MG/50 ML BAG IV STA (20:16)
[2020-05-09] MEDS: MoRPHine SULFATE 4 MG/ML 1 ML CARP\\VIAL IV PRN ×2 (20:41→22:24)
[2020-05-09] MEDS ORDERED: CEFEPIME 2,000 MG/20 ML VIAL IV STA (21:35)
[2020-05-09] MEDS ORDERED: KETOROLAC TROMETHAMINE 15 MG/ML VIAL IV ONE (22:04)
[2020-05-09] MEDS ORDERED: PROMETHAZINE HCL 12.5 MG in SODIUM CHLORIDE 0.9% 50 ML IV STA (23:29)
--- NOTE | 2020-05-09 23:30 | History & Physical Report ---
Date of Service May 09, 2020 Assessment & Plan (1) Sepsis: Admission and Anticipated Discharge Date Admission Date: Complicated UTI Rule out C. difficile given diarrhea complaints Headache for 2 months Possible pseudotumor cerebri on initial MRI read Abnormal LFTs possible NAFLD Right renal mass incidental finding on CT abdomen hx PE status post anticoagulation Hyperglycemia rule out DM mood disorder, at baseline Medical telemetry Cultures, Cefepime Stool cultures, stool C. difficile GI consult Re: Chronic diarrhea, fatty liver disease Neurology consult RE headache, abnormal MRI Nonemergent renal protocol MRI for right renal mass Check hemoglobin A1c DVT prophylaxis per Lovenox subcu Full code Text document was generated using [employer] recognition software. It may contain grammatical or spelling errors. Kindly contact undersigned for clarification of any documentation item in question. History of Present Illness Chief Complaint: Abdominal pain, headache Primary Care Provider: Joey Crockett MD History obtained from patient and records. Medical history significant for PE status post anticoagulation, complicated diverticulitis status post surgery, GERD, ESTEBAN (CPAP noncompliance), mood disorder. Last confinement August 2017 for postop pulmonary embolism. Patient completed anticoagulation. 2 months history of achy lower abdominal pain with diarrhea symptoms. Stools kind of dark as per patient. No fever, no chills, no recent travel, no recent antibiotic Rx. No unusual weight loss. In the last week, patient noted worsening of achy abdominal pain. Patient also noted epigastric discomfort with nausea but without emesis symptoms. 2 months history of left-sided headache symptoms different from migraine attack with nausea, photophobia, transient blurred vision. Patient directed to ER by PCP. Patient received Ceftriaxone at the ER for UTI. Medical History as above No ischemia on recent outpatient pharmacologic stress test last week for intermittent chest pain symptoms. 2013 colonoscopy showed diverticulosis Surgical History : Hysterectomy, cholecystectomy, partial colectomy for diverticulitis, dental surgery, urologic procedures Family History : Prostate cancer, heart disease, stroke Personal/Social history : Past tobacco abuse, no EtOH intake, currently unemployed Allergies Allergy/AdvReac Type Severity Reaction Status Date / Time No Known Allergies Allergy Verified 05/09/20 22:56 Home Medications Home Medications Medication Instructions Recorded Confirmed Type clonazepam [Klonopin] 0.5 mg PO TID PRN 07/03/18 05/09/20 History hydrocodone-acetaminophen [Vicodin 1 tab PO Q6 PRN 07/03/18 05/09/20 History HP] levothyroxine 25 mcg PO DAILY 05/09/20 05/09/20 History metformin 500 mg PO BID 05/09/20 05/09/20 History sertraline 200 mg PO DAILY 05/09/20 05/09/20 History Past Med/Surg History Medical History Anxiety Depression Endometriosis GERD (gastroesophageal reflux disease) ESTEBAN (obstructive sleep apnea) Pulmonary embolism Surgical History H/O wisdom tooth extraction History of appendectomy History of hysterectomy History of partial colectomy Hx of cholecystectomy Social History Smoking Status: Former smoker Hx Substance Use: No Preferred Language: Latvian 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 Ability: Effective 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 Beliefs That Will Affect Care: None Current Living Situation: Spouse and Family Other Information That Helps Us Care for You: No Feels Safe at Home: Yes Safety Concerns: Feels Safe At This Time Assistive Devices: None Review of Systems Review of Systems: As per HPI, all 10 systems reviewed, all other ROS negative Physical Exam Physical Exam: GENERAL: Uncomfortable, obese, looks younger for stated age, no respiratory distress SKIN: Normal color, warm HEENT: Opal palpebral conjunctivae, no ptosis, dry buccal mucosa NECK : Supple, short neck, no tenderness CHEST : CTA, no tenderness HEART : RRR, no obvious murmurs ABDOMEN: Some distention, epigastric and hypogastric tenderness RECTAL : Intact sphincter, brown stool (FOBT negative) EXTREMITIES : Minimal LE swelling, no LE tenderness, no other conspicuous deformities noted NEUROLOGIC : Coherent, no facial asymmetry, no other gross focality Results & Data Results & Data ([facility]) Vital Signs (Past 12 Hours) Vital Signs Temp Pulse Pulse Resp BP BP Pulse Ox 05/09/20 22:13 83 23 103/66 97 05/09/20 22:00 80 21 98/65 L 95 05/09/20 21:30 85 14 95 05/09/20 21:00 75 17 116/72 96 05/09/20 20:44 78 84 18 117/70 117/70 96 05/09/20 20:30 77 18 96 11/09/20 20:00 96 05/09/20 19:30 84 14 94 05/09/20 19:17 91 H 14 96 05/09/20 19:06 85 18 134/102 H 96 05/09/20 18:49 80 18 133/84 97 05/09/20 16:55 36.9 C 103 H 18 131/90 96 Laboratory Results Laboratory Results WBC 13.55 K/uL (4.8-10.8) H 05/09/20 17:42 RBC 5.56 M/uL (4.2-5.4) H 05/09/20 17:42 Hgb 15.7 g/dL (12.0-16.0) 05/09/20 17:42 Hct 47.6 % (37-47) H 05/09/20 17:42 MCV 85.6 fL (80-100) 05/09/20 17:42 MCH 28.2 pg (25-34) 05/09/20 17:42 MCHC 33.0 g/dL (32-36) 05/09/20 17:42 RDW Std Deviation 41.9 fL (36.4-46.3) 05/09/20 17:42 RDW Coeff of Aysha 13.3 % (11.5-14.5) 05/09/20 17:42 Plt Count 307 K/uL (130-400) 05/09/20 17:42 MPV 9.9 fL (7.4-10.4) 05/09/20 17:42 Immature Gran % (Auto) 0.6 % 05/09/20 17:42 Neut % (Auto) 66.4 % 05/09/20 17:42 Lymph % (Auto) 24.9 % 05/09/20 17:42 [place] % (Auto) 6.2 % 05/09/20 17:42 Eos % (Auto) 1.5 % 05/09/20 17:42 Baso % (Auto) 0.4 % 05/09/20 17:42 Neut # (Auto) 9.00 K/uL (1.4-6.5) H 05/09/20 17:42 Lymph # (Auto) 3.37 K/uL (1.2-3.4) 05/09/20 17:42 [place] # (Auto) 0.84 K/uL (0.11-0.59) H 05/09/20 17:42 Eos # (Auto) 0.20 K/uL (0-0.5) 05/09/20 17:42 Baso # (Auto) 0.06 K/uL (0-0.2) 05/09/20 17:42 Immature Gran # (Auto) 0.08 K/uL (0.00-0.02) H 05/09/20 17:42 Sodium 137 mmol/L (136-145) 05/09/20 17:42 Potassium 3.8 mmol/L (3.5-5.1) 05/09/20 17:42 Chloride 106 mmol/L (98-107) 05/09/20 17:42 Carbon Dioxide 24 mmol/L (21-32) 05/09/20 17:42 Anion Gap 7.0 (3-11) 05/09/20 17:42 BUN 16 mg/dl (7-18) 05/09/20 17:42 Creatinine 1.02 mg/dl (0.6-1.2) 05/09/20 17:42 Est Cr Clr Drug Dosing 70.9 ml/min 05/09/20 17:42 Est GFR ( Amer) 74.3 05/09/20 17:42 Est GFR (Non-Af Amer) 64.1 05/09/20 17:42 BUN/Creatinine Ratio 15.7 (10-20) 05/09/20 17:42 Glucose 106 mg/dl (70-99) H 05/09/20 17:42 Calcium 9.6 mg/dl (8.5-10.1) 05/09/20 17:42 Magnesium 2.2 mg/dl (1.8-2.4) 05/09/20 17:42 Total Bilirubin 0.3 mg/dl (0.2-1) 05/09/20 17:42 AST 48 U/L (15-37) H 05/09/20 17:42 ALT 88 U/L (12-78) H 05/09/20 17:42 Alkaline Phosphatase 129 U/L (45-117) H 05/09/20 17:42 Troponin I < 0.015 ng/ml (0-0.045) 05/09/20 17:42 Total Protein 8.4 gm/dl (6.4-8.2) H 05/09/20 17:42 Albumin 4.2 gm/dl (3.4-5.0) 05/09/20 17: Globulin 4.2 gm/dl (2.5-4.0) H 05/09/20 17:42 Albumin/Globulin Ratio 1.0 (0.9-2) 05/09/20 17: Lipase 132 U/L (73-393) 05/09/20 17: Urine Color Dark Yellow 05/09/20 17: Urine Appearance Clear (Clear) 05/09/20 17: Urine pH 5.0 (4.5-7.5) 05/09/20 17: Ur Specific [place] 1.027 (1.000-1.030) 05/09/20 17: Urine Protein Negative (Negative) 05/09/20 17: Urine Glucose (UA) Negative (Negative) 05/09/20 17: Urine Ketones Negative (Negative) 05/09/20 17: Urine Blood Negative (Negative) 05/09/20 17: Urine Nitrite Negative (Negative) 05/09/20 17: Urine Bilirubin Negative (Negative) 05/09/20 17: Urine Urobilinogen Negative (Negative) 05/09/20 17:33 Ur Leukocyte Esterase 1+ (Negative) H 05/09/20 17:33 Urine WBC (Auto) 10-30 /hpf (0-5) H 05/09/20 17:33 Urine RBC (Auto) 0-4 /hpf (0-4) 05/09/20 17: U Hyaline Cast (Auto) 1-5 /lpf (0-5) 05/09/20 17:33 U Epithel Cells (Auto) >30 /lpf (0-5) H 05/09/20 17:33 Urine Bacteria (Auto) Negative (Negative) 05/09/20 17: Urine Crystals Calcium Oxalate (None Prsent) A 05/09/20 17: Calcium Oxalate Crystal Present (None Prsent) A 05/09/20 17:[address] abdomen pelvis: 1. No acute infectious or inflammatory findings are identified in the abdomen or pelvis. 2. Hepatomegaly and severe hepatic steatosis. 3. There is postoperative change from sigmoid colon resection with colocolonic anastomosis. No bowel obstruction is seen. 4. There is mild to moderate diverticulosis of the remaining colon without CT evidence of acute diverticulitis. 5. A 12 mm indeterminant low-attenuation lesion arises from the lower pole of the right kidney. This does not meet CT criteria for a simple cyst and is new from 06/01/2014. Follow-up with a nonemergent contrast enhanced renal protocol MRI is recommended for further assessment. 6. 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 This is of indeterminant chronicity and significance. MRI head initial read: Global volume loss, empty sella. Mild the prominent optic nerve sheaths correlate for intracranial hypertension. MRCP initial read: Cholecystectomy and mild central biliary ectasia. CBD 7 mm without calculi within common duct. No pancreatic ductal dilatation. Bilateral breast implants. Right renal cyst.
[2020-05-09] MEDS ORDERED: PROMETHAZINE 12.5 MG/50.5 ML NSS IV ONE (23:55)
[2020-05-10] MEDS ORDERED: GADOBUTROL 65ML VIAL IV ONE (01:42)
[2020-05-10] MEDS: MoRPHine SULFATE 4 MG/ML 1 ML CARP\\VIAL IV PRN ×5 (02:35→20:30)
[2020-05-10] MEDS ORDERED: METOCLOPRAMIDE HCL INJ 5 MG/ML 2 ML VIAL IV STA (03:02)
[2020-05-10] MEDS ORDERED: clonazePAM 0.5 MG TAB PO PRN (04:17)
[2020-05-10] MEDS ORDERED: CEFEPIME CONSULT ACTIVE PRN (04:17)
[2020-05-10] MEDS ORDERED: ACETAMINOPHEN 325 MG TAB PO PRN (04:17)
[2020-05-10] MEDS ORDERED: LORazepam 0.5 MG/1 ML VIAL IV PRN (04:17)
[2020-05-10] MEDS ORDERED: LACTATED RINGER'S 1,000 ML IV SCH (04:17)
[2020-05-10] MEDS ORDERED: HYDROCODONE/ACETAMOPHEN 5/325MG TAB PO PRN (04:40)
[2020-05-10 04:46] LABS: Prothrombin Time 10.5 Seconds (9.0-12.0)
[2020-05-10] MEDS: oxyCODONE HCL IR 5 MG TAB (IMMEDIATE RELEASE) PO PRN ×2 (04:49→17:37)
[2020-05-10] MEDS ORDERED: LACTATED RINGER'S 1,000 ML IV ONE (05:05)
[2020-05-10] MEDS: LEVOTHYROXINE SODIUM 25 MCG TABLET PO SCH (06:06)
--- NOTE | 2020-05-10 07:31 | Magnetic Resonance Report ---
MRI OF THE BRAIN WITHOUT AND WITH IV CONTRAST CLINICAL HISTORY: Headache. COMPARISON STUDY: MRI of the brain September 28, 2014. Head CT May 09, 2020. TECHNIQUE: Utilizing a 1.5 Nury magnet and dedicated coil, multiplanar, multiecho imaging of the br ain was performed pre and postcontrast administration. IV administration of 9.1 mL of Gadavist contr ast was uneventful. FINDINGS: There are no foci of restricted diffusion to suggest acute infarct. No acute intracranial h emorrhage, midline shift or mass effect is present. Ventricular system is normal. The basilar cistern s are patent. There are no extra-axial collections. Prominence of the extra-axial CSF spaces is uncha nged. No intracranial mass or pathologic enhancement is identified. Note is made of a few small white matter T2 hyperintense foci which could reflect minimal small vessel disease or sequela of migraine headaches. Partially empty sella is noted. There is mild prominence of the subarachnoid spaces surrou nding the optic nerves. These findings are nonspecific. IMPRESSION: 1. No acute intracranial findings. 2. No intracranial mass or pathologic enhancement. 3. Partially empty sella. Slight prominence of the subarachnoid spaces surrounding the optic nerves. These findings are nonspecific and can be seen in normal patients. Although less likely, intracranial hypertension could have this appearance. ACT 112: Negative or not required by law. Electronically signed by: Lyle Romo M.D. 05/10/2020 7:30 AM
[2020-05-10] MEDS: SERTRALINE HCL 100 MG TABLET PO SCH (08:06)
--- NOTE | 2020-05-10 08:24 | Magnetic Resonance Report ---
MR MRCP HISTORY: 50 years-old Female abd pain acute nausea with left-sided abdominal pain COMPARISON: CT abdomen and pelvis 05/09/2020 TECHNIQUE: MRCP without the use of IV contrast was obtained according to institutional protocol. FINDINGS: Motion degraded exam. The imaged lower chest is unremarkable. Bilateral breast implants are partially imaged. Hepatosplenomegaly. Spleen, pancreas and adrenal glands are unremarkable. Cholecystectomy. T he common bile duct measures up to 6 mm transversely. No intrahepatic delayed ductal dilation, biliar y strictures or choledocholithiasis. No pancreatic ductal dilation or pancreatic divisum. No aortic a neurysm or adenopathy. No bowel obstruction or free fluid. T2 hyperintense exophytic 12 mm lesion of the posterior inferior pole right kidney is incompletely characterized on this exam. The right gonada l vein thrombosis is better characterized on comparison CT abdomen and pelvis. IMPRESSION: 1. Unremarkable MRCP status post cholecystectomy. 2. No biliary ductal dilation or choledocholithiasis. 3. Hepatomegaly. ACT 112: Negative or not required by law. The above report was generated using voice recognition software. It may contain grammatical, syntax o r spelling errors. Electronically signed by: Chuy Rodríguez M.D. 05/10/2020 8:22 AM
[2020-05-10 09:01] LABS: Basophils # (auto) 0.05 K/uL (0-0.2); Basophils % (auto) 0.5 %; Eosinophils # (auto) 0.21 K/uL (0-0.5); Eosinophils % (auto) 2.3 %; Hematocrit (blood only) 41.5 % (37-47); Hemoglobin 13.2 g/dL (12.0-16.0); Immature Granulocytes # (auto) 0.04 K/uL (0.00-0.02); Immature Granulocytes % (auto) 0.4 %; Lymphocytes # (auto) 2.82 K/uL (1.2-3.4); Lymphocytes % (auto) 30.9 %; Mean Corpuscular Hemoglobin 27.7 pg (25-34); Mean Corpuscular Hgb Conc 31.8 g/dL (32-36); Mean Corpuscular Volume 87.2 fL (80-100); Mean Platelet Volume 9.8 fL (7.4-10.4); Monocytes # (auto) 0.64 K/uL (0.11-0.59); Neutrophils # (auto) 5.38 K/uL (1.4-6.5); Neutrophils % (auto) 58.9 %; Platelet Count 242 K/uL (130-400); RDW Coefficient of Variation 13.7 % (11.5-14.5); RDW Standard Deviation 43.6 fL (36.4-46.3); Red Blood Count 4.76 M/uL (4.2-5.4); White Blood Count 9.14 K/uL (4.8-10.8)
[2020-05-10 09:17] LABS: Estimated Average Glucose 128 mg/dl; Hemoglobin A1C 6.1 % (4.5-5.6)
[2020-05-10 09:37] LABS: Albumin Level 3.4 gm/dl (3.4-5.0); BUN Creatinine Ratio 16.1 (10-20); Calcium 8.8 mg/dl (8.5-10.1); Creatinine Clr Calc Pharmacy 79.9 ml/min; Est GFR (African American) 86.4; Est GFR (Non-African American) 74.6; Potassium 3.9 mmol/L (3.5-5.1)
[2020-05-10] MEDS ORDERED: PROMETHAZINE HCL 12.5 MG in SODIUM CHLORIDE 0.9% 50 ML IV ONE (09:45)
[2020-05-10 09:47] LABS: Bilirubin,Total 0.3 mg/dl (0.2-1); Globulin 3.4 gm/dl (2.5-4.0); Total Protein 6.8 gm/dl (6.4-8.2)
[2020-05-10] MEDS: ENOXAPARIN INJ 40 MG/0.4 ML SYR SQ SCH (10:11)
[2020-05-10] MEDS: CEFEPIME 2,000 MG in SYRINGE 0 ML IV SCH ×2 (10:12→17:37)
[2020-05-10] MEDS: PROMETHAZINE HCL 12.5 MG in SODIUM CHLORIDE 0.9% 50 ML IV PRN ×3 (10:15→23:39)
[2020-05-10 10:43] LABS: Hepatitis B Surface Antigen Neg (Neg)
[2020-05-10] MEDS ORDERED: CEFEPIME 2,000 MG in SYRINGE 0 ML IV SCH (11:00)
[2020-05-10 11:12] LABS: Hepatitis C IgG 13Yrs+Old_Rflx Neg (Neg)
--- NOTE | 2020-05-10 11:22 | Gastrointestinal Consultation ---
Date of Consultation May 10, 2020 Assessment & Plan (1) Abdominal pain: (2) Nausea & vomiting: Pt is a 50 y/o female admitted w generalized malaise, HAs, seen for N/V, abd pain symptoms. WBC & LFTs up, lipase normal. She is s/p cholecystectomy, no signs of inflammatory/obstructive process in CT abd/pelvis. MRCP w/o signs of biliary obstruction, CBD 6mm. - F/U blood and urine cx - Check viral Hepatitis A,B,C. Check CMV, EBV, Parvo - Check stool cx and Cdiff (if negative suspect possible bile acid diarrhea s/p cholecystectomy and can try Questran/Colestipol) - Consider outpt EGD/EUS upon DC Supervising Physician Co-Signing Physician Notes I performed a history and physical examination of the patient today, including specifically on physical exam - soft abdomen. I have discussed the patient's management with the advanced practitioner. Please refer to the nurse practitioner's note for the documented findings and plan of care. Patient with nausea, vomiting and abdominal cramps, slightly elevated AST/ALT with normal MRCP, seems like acute gastroenteritis. Treat conservatively. Recommend EGD/EUS as OP. Recall GI if needed. History of Present Illness Reason for Consultation: Abd pain, diarrhea Requesting Physician: Dr. Surya Andujar Attending Physician: Dr. William Sanders History of Present Illness Pt is a 50 y/o female who presented yesterday w c/o HAs, malaise, n/v, lower abd pain symptoms associated w diarrhea. Denies hematemesis, coffee ground emesis, dark tarry stools or rectal bleeding. Denies fever, chills, CP, SOB. Appetite and weight loss present in last week. Denies any travels, sick contact, new meds including antibx. On eval, head CT/MRI unremarkable except partially empty sella and slight prominence of the subarachnoid spaces surrounding the optic nerves which are non specific vs intracranial HTN CT abd/pelvis w/o acute inflammatory or obstructive signs. She is s/p cholecystectomy and partial colectomy for hx of diverticulilits. + hepatic steatosis and hepatomegaly. MRCP showed CBD 6mm s/p cholecystectomy but otherwise no signs of biliary obstruction. WBC 13K, not anemic, no coagulopathy. Her LFTs are up: T bili 0.3, AST 48, ALT 88, AP 129. Lipase normal. Upon chart review she had presented in the past w elevated ETOH levels but said hasn't had ETOH for "a while". Denies tobacco, marijuana. She denies tattoos/body piercing. Denies APAP uses, denies new meds/antibx. EGD 2010 - erythematous gastric Colonoscopy 2013 - diverticulosis entire colon Allergies Allergy/AdvReac Type Severity Reaction Status Date / Time No Known Allergies Allergy Verified 05/09/20 22:56 Home Medications Home Medications Medication Instructions Recorded Confirmed Type clonazepam [Klonopin] 0.5 mg PO TID PRN 07/03/18 05/09/20 History hydrocodone-acetaminophen [Vicodin 1 tab PO Q6 PRN 07/03/18 05/09/20 History HP] levothyroxine 25 mcg PO DAILY 05/09/20 05/09/20 History metformin 500 mg PO BID 05/09/20 05/09/20 History sertraline 200 mg PO DAILY 05/09/20 05/09/20 History Patient History Medical History Anxiety Depression Endometriosis GERD (gastroesophageal reflux disease) ESTEBAN (obstructive sleep apnea) Pulmonary embolism Surgical History H/O wisdom tooth extraction History of appendectomy History of hysterectomy History of partial colectomy Hx of cholecystectomy Social History Smoking Status: Former smoker Hx Substance Use: No Preferred Language: Sami 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 Ability: Effective Cardiac Cath Technician Required: No Beliefs That Will Affect Care: None Current Living Situation: Spouse and Family Other Information That Helps Us Care for You: No Feels Safe at Home: Yes Safety Concerns: Feels Safe At This Time Assistive Devices: None Review of Systems Review of Systems: All systems reviewed & are unremarkable except as noted in HPI & below Physical Exam Constitutional: WD/WN, vitals as above well groomed, cooperative and comfortable Eyes: PERRL, conjunctivae normal, anicteric sclerae ENMT: external ear and nose normal, oropharynx normal Respiratory: normal respiratory effort, lungs clear to auscultation Cardiovascular: RRR, no murmur, no edema Gastrointestinal (Abdomen): Percussion/Palpation: + abdomen tender (generalized) and abdomen soft Skin: no rashes, warm and dry no jaundice Psychiatric: A+Ox3, euthymic affect Lymphatic: no lymphedema Results & Data ([facility]) Vital Signs (Past 12 Hours) Vital Signs Temp Pulse Pulse Resp BP BP Pulse Ox 05/10/20 07:45 36.7 C 78 16 101/68 94 05/10/20 04:58 36.6 C 73 18 109/73 91 05/10/20 04:15 81 05/10/20 03:00 128/92 92 05/10/20 02:00 76 18 106/73 92 05/10/20 01:53 114/79 93 05/10/20 00:00 86 18 122/83 96 (1) Abdominal pain Abdominal location: generalized Qualified Code(s): R10.84 - Generalized abdominal pain
--- NOTE | 2020-05-10 15:26 | Neurology Consultation ---
Date of Consultation May 10, 2020 Assessment & Plan (1) Headache: 1. will follow up as outpatient 2. MRI brain - discussed with Dr Romo regarding findings- where present on previous MRIs no change on 2013 and 2015 MRIs and her headaches have waxed and weaned 3. continue to treat conservatively 4. would not add any medications for headaches due to liver function and nausea 5. would treat with fluids if she is not drinking well 6. GI- plans out patient colonoscopy 7. may try gabapentin as outpatient but would not recommend starting anything at this time 8. 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 and presents now with a probable vascular variant with left occipital parietal circumscribed pain for several months which escalated with the current gastrointestinal sympoms for the past 10 days Imaging is stable and the findings described were present 5 years ago and are thus not likely due to intracranial hypertension and the history is certainly not typical ie no pulsatile tinnitus and no generalized throbbing head pain or visual obscurations At this point with the abnormal lfts and diarrhea I am reluctant to recommend other than mild analgesia and frankly would suggest that the headache issue be addressed as an outpatient after the current gi complaints and symptoms resolve Options then might include the standard fare for migraine ie mag oxide riboflavin gabapentin but not at this time until abdomen settles down and lfts return to baseline normal We will check in by computer and monitor but for now are recommending no s pecific agents Joey Tavares MD History of Present Illness Reason for Consultation: headache Requesting Physician: Surya Conley MD Attending Physician: Surya Andujar MD History of Present Illness She has had diarrhea and abdominal pain for 2 weeks. She also started with a left sided headache with she states is now better than previous. She still experiencing abdominal pain as well as chest pain as well as headache. The abdominal pain is diffuse upper abdominal pain. She denies having any vomiting but does complain of nausea and diarrhea. There has been no fever. She had a previous history of migraine were different but had some blurred vision with the headaches. She has been around no sick contacts. she has not been working since covid 19 due to being home with her children. denies CP, SOB, abdominal pain, +burred vision, headache, nausea. Allergies Allergy/AdvReac Type Severity Reaction Status Date / Time No Known Allergies Allergy Verified 05/09/20 22:56 Home Medications Home Medications Medication Instructions Recorded Confirmed Type clonazepam [Klonopin] 0.5 mg PO TID PRN 07/03/18 05/09/20 History hydrocodone-acetaminophen [Vicodin 1 tab PO Q6 PRN 07/03/18 05/09/20 History HP] levothyroxine 25 mcg PO DAILY 05/09/20 05/09/20 History metformin 500 mg PO BID 05/09/20 05/09/20 History sertraline 200 mg PO DAILY 05/09/20 05/09/20 History Patient History Medical History Anxiety Depression Endometriosis GERD (gastroesophageal reflux disease) ESTEBAN (obstructive sleep apnea) Pulmonary embolism Surgical History H/O wisdom tooth extraction History of appendectomy History of hysterectomy History of partial colectomy Hx of cholecystectomy Social History Smoking Status: Former smoker Hx Substance Use: No Preferred Language: Kazakh 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 Ability: Effective 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 Beliefs That Will Affect Care: None Current Living Situation: Spouse and Family Other Information That Helps Us Care for You: No Feels Safe at Home: Yes Safety Concerns: Feels Safe At This Time Assistive Devices: None Review of Systems Review of Systems: All systems reviewed & are unremarkable except as noted in HPI & below and All systems reviewed & are unremarkable except as noted in Subjective Physical Exam Physical Exam: Physical Exam: Constitutional: appearance over nourished, healthy and normal Ears, Nose, Mouth and Throat: mucous membranes moist, no injection and skin normal, eyes normal Cardiovascular: normal S-1 and S-2 and regular rate and rhythm Respiratory: clear to auscultation (CTA) and no rales, ronchi or wheeze Musculoskeletal: no peripheral edema and good distal pulses Skin: no stigmata of neurocutaneous disease noted and normal and intact Eyes: extraocular muscles intact (EOMI) and pupils equal, round and reactive to light (PERRL), blurred vision but does have her glasses NEUROLOGIC EXAMINATION: Mental status: Alert and interactive Oriented to full date and location Oriented to person Speech fluent with no evidence of aphasia Cranial Nerves Normal findings for Cranial Nerves II - XII, facial symmetry Reflexes: Deep tendon reflexes were symmetrical and brisk, down going toes Sensory: intact to light touch, vibration Coordination: finger to nose no bipass Gait/Stance: Posture normal. Gait no assessed Motor: Negative for pronator drift of out stretched arms with eyes closed. Strength: Normal - 5/5 all extremities Results & Data ([facility]) Vital Signs (Past 12 Hours) Vital Signs Temp Pulse Pulse Resp BP BP Pulse Ox 05/10/20 15:22 36.5 C 83 18 109/73 93 05/10/20 11:42 36.6 C 83 16 114/76 92 05/10/20 07:45 36.7 C 78 16 101/68 94 05/10/20 04:58 36.6 C 73 18 109/73 91 05/10/20 04:15 81 Laboratory Results Abnormal lab results 05/09/20 05/09/20 05/09/20 Range/Units 17:33 17:42 17:42 WBC 13.55 H (4.8-10.8) K/uL RBC 5.56 H (4.2-5.4) M/uL Hct 47.6 H (37-47) % MCHC (32-36) g/dL Neut # (Auto) 9.00 H (1.4-6.5) K/uL Foard # (Auto) 0.84 H (0.11-0.59) K/uL Immature Gran # (Auto) 0.08 H (0.00-0.02) K/uL Chloride (98-107) mmol/L Glucose 106 H (70-99) mg/dl Hemoglobin A1c (4.5-5.6) % AST 48 H (15-37) U/L ALT 88 H (12-78) U/L Alkaline Phosphatase 129 H (45-117) U/L Total Protein 8.4 H (6.4-8.2) gm/dl Globulin 4.2 H (2.5-4.0) gm/dl Ur Leukocyte Esterase 1+ H (Negative) Urine WBC (Auto) 10-30 H (0-5) /hpf U Epithel Cells (Auto) >30 H (0-5) /lpf Urine Crystals Calcium Oxalate A (None Prsent) Calcium Oxalate Crystal Present A (None Prsent) Acetaminophen (10-30) ug/ml 05/10/20 05/10/20 05/10/20 Range/Units 08:39 08:39 08:44 WBC (4.8-10.8) K/uL RBC (4.2-5.4) M/uL Hct (37-47) % MCHC 31.8 L (32-36) g/dL Neut # (Auto) (1.4-6.5) K/uL Foard # (Auto) 0.64 H (0.11-0.59) K/uL Immature Gran # (Auto) 0.04 H (0.00-0.02) K/uL Chloride 109 H (98-107) mmol/L Glucose (70-99) mg/dl Hemoglobin A1c 6.1 H (4.5-5.6) % AST 54 H (15-37) U/L ALT 85 H (12-78) U/L Alkaline Phosphatase (45-117) U/L Total Protein (6.4-8.2) gm/dl Globulin (2.5-4.0) gm/dl Ur Leukocyte Esterase (Negative) Urine WBC (Auto) (0-5) /hpf U Epithel Cells (Auto) (0-5) /lpf Urine Crystals (None Prsent) Calcium Oxalate Crystal (None Prsent) Acetaminophen (10-30) ug/ml 05/10/20 Range/Units 09:27 WBC (4.8-10.8) K/uL RBC (4.2-5.4) M/uL Hct (37-47) % MCHC (32-36) g/dL Neut # (Auto) (1.4-6.5) K/uL Foard # (Auto) (0.11-0.59) K/uL Immature Gran # (Auto) (0.00-0.02) K/uL Chloride (98-107) mmol/L Glucose (70-99) mg/dl Hemoglobin A1c (4.5-5.6) % AST (15-37) U/L ALT (12-78) U/L Alkaline Phosphatase (45-117) U/L Total Protein (6.4-8.2) gm/dl Globulin (2.5-4.0) gm/dl Ur Leukocyte Esterase (Negative) Urine WBC (Auto) (0-5) /hpf U Epithel Cells (Auto) (0-5) /lpf Urine Crystals (None Prsent) Calcium Oxalate Crystal (None Prsent) Acetaminophen 3 L (10-30) ug/ml Diagnostic Findings MRI brain with and without- No acute intracranial findings. No intracranial mass or pathologic enhancement. Partially empty sella. Slight prominence of the subarachnoid spaces surrounding the optic nerves. These findings are nonspecific and can be seen in normal patients. Although less likely, intracranial hypertension could have this appearance. (1) Headache Headache chronicity pattern: acute headache Headache type: unspecified Intractability: not intractable Qualified Code(s): R51.9 - Headache, unspecified
--- NOTE | 2020-05-10 19:53 | Hospitalist Progress Note ---
Date of Service May 10, 2020 Assessment & Plan (1) Abdominal pain: Abdominal pain with diarrhea Possible sepsis secondary to bacterial gastroenteritis Rule out UTI --CT abdomen pelvis: 1. No acute infectious or inflammatory findings are identified in the abdomen or pelvis. 2. Hepatomegaly and severe hepatic steatosis. 3. There is postoperative change from sigmoid colon resection with colocolonic anastomosis. No bowel obstruction is seen. 4. There is mild to moderate diverticulosis of the remaining colon without CT evidence of acute diverticulitis. 5. A 12 mm indeterminant low-attenuation lesion arises from the lower pole of the right kidney. This does not meet CT criteria for a simple cyst and is new from 06/01/2014. Follow-up with a nonemergent contrast enhanced renal protocol MRI is recommended for further assessment. 6. 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 This is of indeterminant chronicity and significance. --GI consulted, hepatitis panel and CMV, EBV, parvovirus, stool culture and C. difficile ordered Outpatient EGD/scopic ultrasound recommended --Diarrhea improving Continue cefepime IV for now, clear liquid diet Headache for 2 months Possible pseudotumor cerebri on initial MRI read --Neurologist consulted Abnormal LFTs possible NAFLD --Improving Follow-up Right renal mass incidental finding on CT abdomen --Nonemergent renal protocol MRI for right renal mass hx PE status post anticoagulation Hyperglycemia rule out DM -- a1c 6.1 Mood disorder, at baseline DVT prophylaxis per Lovenox subcu Full code Disposition Anticipate discharge to home medically stable Admission and Anticipated Discharge Date Admission Date: May 09, 2020 Subjective Follow-up for abdominal pain, diarrhea, headache, etc. Seen resting in bed, sitting up, comfortable, not in distress Just had dinner, clear liquid diet Still reports some nausea and right lower quadrant pain No diarrhea today Has mild frontal headache No fevers or chills No chest pain, shortness of breath, palpitations, dizziness No other symptom Review of Systems Review of Systems: All systems reviewed & are unremarkable except as noted in Subjective Physical Exam Physical Exam: General- oriented x 3, not in distress, speaks in sentences with no effort or accessory muscle use Head- atraumatic Eyes- PERRL, EOMI, anicteric ENT- oropharynx clear Neck- supple, no JVD, no adenopathy, no thyromegaly; carotids +2/2, no bruits appreciated Lungs- clear to auscultation bilaterally, no rales/wheezes Heart- normal rate, regular rhythm; no murmur, no gallop, no rub appreciated Abdomen-hyperactive bowel sounds, nondistended, soft, tenderness right lower quadrant, no masses or hepatosplenomegaly Extremities- no pretibial edema, no calf tenderness; peripheral pulses intact Neuro- alert, oriented x 3; CN 2-12 grossly intact; motor 5/5 bilaterally;sensation 100% on all extremities; no other gross focal neurologic deficits Skin- warm & dry Results & Data Results & Data ([facility]) Vital Signs (Past 12 Hours) Vital Signs Temp Pulse Pulse Resp BP BP Pulse Ox 05/10/20 16:00 87 05/10/20 15:28 87 05/10/20 15:22 36.5 C 83 18 109/73 93 05/10/20 11:42 36.6 C 83 16 114/76 92 05/10/20 07:45 36.7 C 78 16 101/68 94 Laboratory Results Laboratory Results - last 24 hr 05/09/20 05/09/20 05/09/20 17:42 17:42 17:42 WBC RBC Hgb Hct MCV MCH MCHC RDW Std Deviation RDW Coeff of Aysha Plt Count MPV Immature Gran % (Auto) Neut % (Auto) Lymph % (Auto) [place] % (Auto) Eos % (Auto) Baso % (Auto) Neut # (Auto) Lymph # (Auto) [place] # (Auto) Eos # (Auto) Baso # (Auto) Immature Gran # (Auto) PT 10.5 INR 1.0 Sodium Potassium Chloride Carbon Dioxide Anion Gap BUN Creatinine Est Cr Clr Drug Dosing Est GFR ( Amer) Est GFR (Non-Af Amer) BUN/Creatinine Ratio Glucose Estimat Average Glucose Hemoglobin A1c Lactate Calcium Magnesium 2.2 Total Bilirubin AST ALT Alkaline Phosphatase Troponin I < 0.015 Total Protein Albumin Globulin Albumin/Globulin Ratio Acetaminophen Ethyl Alcohol mg/dL CMV IgM Ab CMV IgG Ab/TORCH EBV Capsid Ag IgG Ab EBV Capsid Ag IgM Ab EBV EA Restrict+Diffuse EBV Nuclear Antigen Ab EBV Antibody Interp Hepatitis A IgM Ab Hep Bs Antigen Hep B Core IgM Ab Hepatitis C Antibody Parvovirus IgG Ab Index Parvovirus IgM Ab Index 05/09/20 05/10/20 05/10/20 23:07 08:39 08:39 WBC 9.14 RBC 4.76 Hgb 13.2 Hct 41.5 MCV 87.2 MCH 27.7 MCHC 31.8 L RDW Std Deviation 43.6 RDW Coeff of Aysha 13.7 Plt Count 242 MPV 9.8 Immature Gran % (Auto) 0.4 Neut % (Auto) 58.9 Lymph % (Auto) 30.9 [place] % (Auto) 7.0 Eos % (Auto) 2.3 Baso % (Auto) 0.5 Neut # (Auto) 5.38 Lymph # (Auto) 2.82 [place] # (Auto) 0.64 H Eos # (Auto) 0.21 Baso # (Auto) 0.05 Immature Gran # (Auto) 0.04 H PT INR Sodium 140 Potassium 3.9 Chloride 109 H Carbon Dioxide 26 Anion Gap 5.0 BUN 15 Creatinine 0.90 Est Cr Clr Drug Dosing 79.9 Est GFR ( Amer) 86.4 Est GFR (Non-Af Amer) 74.6 BUN/Creatinine Ratio 16.1 Glucose 99 Estimat Average Glucose Hemoglobin A1c Lactate 1.4 Calcium 8.8 Magnesium Total Bilirubin 0.3 AST 54 H ALT 85 H Alkaline Phosphatase 94 Troponin I Total Protein 6.8 Albumin 3.4 Globulin 3.4 Albumin/Globulin Ratio 1.0 Acetaminophen Ethyl Alcohol mg/dL CMV IgM Ab CMV IgG Ab/TORCH EBV Capsid Ag IgG Ab EBV Capsid Ag IgM Ab EBV EA Restrict+Diffuse EBV Nuclear Antigen Ab EBV Antibody Interp Hepatitis A IgM Ab Hep Bs Antigen Hep B Core IgM Ab Hepatitis C Antibody Parvovirus IgG Ab Index Parvovirus IgM Ab Index 05/10/20 05/10/20 05/10/20 08:44 09:27 09:27 WBC RBC Hgb Hct MCV MCH MCHC RDW Std Deviation RDW Coeff of Aysha Plt Count MPV Immature Gran % (Auto) Neut % (Auto) Lymph % (Auto) [place] % (Auto) Eos % (Auto) Baso % (Auto) Neut # (Auto) Lymph # (Auto) [place] # (Auto) Eos # (Auto) Baso # (Auto) Immature Gran # (Auto) PT INR Sodium Potassium Chloride Carbon Dioxide Anion Gap BUN Creatinine Est Cr Clr Drug Dosing Est GFR ( Amer) Est GFR (Non-Af Amer) BUN/Creatinine Ratio Glucose Estimat Average Glucose 128 Hemoglobin A1c 6.1 H Lactate Calcium Magnesium Total Bilirubin AST ALT Alkaline Phosphatase Troponin I Total Protein Albumin Globulin Albumin/Globulin Ratio Acetaminophen Ethyl Alcohol mg/dL CMV IgM Ab Pending CMV IgG Ab/TORCH Pending EBV Capsid Ag IgG Ab Pending EBV Capsid Ag IgM Ab Pending EBV EA Restrict+Diffuse Pending EBV Nuclear Antigen Ab Pending EBV Antibody Interp Pending Hepatitis A IgM Ab Pending Hep Bs Antigen Neg Hep B Core IgM Ab Pending Hepatitis C Antibody Neg Parvovirus IgG Ab Index Pending Parvovirus IgM Ab Index Pending 05/10/20 05/10/20 09:27 09:27 WBC RBC Hgb Hct MCV MCH MCHC RDW Std Deviation RDW Coeff of Aysha Plt Count MPV Immature Gran % (Auto) Neut % (Auto) Lymph % (Auto) [place] % (Auto) Eos % (Auto) Baso % (Auto) Neut # (Auto) Lymph # (Auto) [place] # (Auto) Eos # (Auto) Baso # (Auto) Immature Gran # (Auto) PT INR Sodium Potassium Chloride Carbon Dioxide Anion Gap BUN Creatinine Est Cr Clr Drug Dosing Est GFR ( Amer) Est GFR (Non-Af Amer) BUN/Creatinine Ratio Glucose Estimat Average Glucose Hemoglobin A1c Lactate Calcium Magnesium Total Bilirubin AST ALT Alkaline Phosphatase Troponin I Total Protein Albumin Globulin Albumin/Globulin Ratio Acetaminophen 3 L Ethyl Alcohol mg/dL < 3.0 CMV IgM Ab CMV IgG Ab/TORCH EBV Capsid Ag IgG Ab EBV Capsid Ag IgM Ab EBV EA Restrict+Diffuse EBV Nuclear Antigen Ab EBV Antibody Interp Hepatitis A IgM Ab Hep Bs Antigen Hep B Core IgM Ab Hepatitis C Antibody Parvovirus IgG Ab Index Parvovirus IgM Ab Index (1) Abdominal pain Abdominal location: generalized Qualified Code(s): R10.84 - Generalized abdominal pain
[2020-05-11] MEDS: MoRPHine SULFATE 4 MG/ML 1 ML CARP\\VIAL IV PRN ×5 (00:41→20:17)
[2020-05-11] MEDS: CEFEPIME 2,000 MG in SYRINGE 0 ML IV SCH ×2 (01:06→10:00)
[2020-05-11] MEDS: oxyCODONE HCL IR 5 MG TAB (IMMEDIATE RELEASE) PO PRN ×2 (02:51→09:22)
[2020-05-11] MEDS: LEVOTHYROXINE SODIUM 25 MCG TABLET PO SCH (06:14)
[2020-05-11 06:31] LABS: Amphetamines+Metham, Urine Neg (Neg); Barbiturates, Urine Neg (Neg); Benzodiazepine, Urine Neg (Neg); Cocaine, Urine Neg (Neg); MDMA (Ecstacy), Urine Neg (Neg); Methadone, Urine Neg (Neg); Opiate, Urine Pos (Neg); Phencyclidine, Urine Neg (Neg)
[2020-05-11 06:44] LABS: Basophils # (auto) 0.04 K/uL (0-0.2); Basophils % (auto) 0.4 %; Eosinophils # (auto) 0.24 K/uL (0-0.5); Eosinophils % (auto) 2.6 %; Hematocrit (blood only) 40.1 % (37-47); Immature Granulocytes # (auto) 0.04 K/uL (0.00-0.02); Immature Granulocytes % (auto) 0.4 %; Lymphocytes # (auto) 2.23 K/uL (1.2-3.4); Mean Corpuscular Hemoglobin 27.9 pg (25-34); Mean Corpuscular Hgb Conc 32.4 g/dL (32-36); Mean Corpuscular Volume 86.1 fL (80-100); Mean Platelet Volume 9.4 fL (7.4-10.4); Monocytes # (auto) 0.59 K/uL (0.11-0.59); Monocytes % (auto) 6.3 %; Neutrophils # (auto) 6.17 K/uL (1.4-6.5); Neutrophils % (auto) 66.3 %; Platelet Count 214 K/uL (130-400); RDW Coefficient of Variation 13.5 % (11.5-14.5); RDW Standard Deviation 42.4 fL (36.4-46.3); Red Blood Count 4.66 M/uL (4.2-5.4); White Blood Count 9.31 K/uL (4.8-10.8)
[2020-05-11 07:11] LABS: Albumin Level 3.4 gm/dl (3.4-5.0); BUN Creatinine Ratio 11.7 (10-20); Bilirubin Direct < 0.1 mg/dl (0-0.2); Blood Urea Nitrogen 10 mg/dl (7-18); Calcium 8.6 mg/dl (8.5-10.1); Carbon Dioxide 27 mmol/L (21-32); Chloride 107 mmol/L (98-107); Creatinine Clr Calc Pharmacy 87.8 ml/min; Est GFR (African American) 87.6; Est GFR (Non-African American) 75.6; Glucose 105 mg/dl (70-99); Potassium 3.6 mmol/L (3.5-5.1); Sodium 139 mmol/L (136-145)
[2020-05-11 07:14] LABS: Alanine Aminotransferase 82 U/L (12-78); Alkaline Phosphatase 87 U/L (45-117); Aspartate Aminotransferase 47 U/L (15-37); Bilirubin,Total 0.3 mg/dl (0.2-1); Total Protein 6.8 gm/dl (6.4-8.2)
[2020-05-11] MEDS: PROMETHAZINE HCL 12.5 MG in SODIUM CHLORIDE 0.9% 50 ML IV PRN ×2 (07:48→18:16)
[2020-05-11] MEDS: SERTRALINE HCL 100 MG TABLET PO SCH (07:49)
[2020-05-11] MEDS: ENOXAPARIN INJ 40 MG/0.4 ML SYR SQ SCH (07:50)
--- NOTE | 2020-05-11 10:55 | Hospitalist Progress Note ---
Date of Service May 11, 2020 Assessment & Plan (1) Abdominal pain: Abdominal pain with diarrhea Secondary to bacterial gastroenteritis Rule out UTI --CT abdomen pelvis: 1. No acute infectious or inflammatory findings are identified in the abdomen or pelvis. 2. Hepatomegaly and severe hepatic steatosis. 3. There is postoperative change from sigmoid colon resection with colocolonic anastomosis. No bowel obstruction is seen. 4. There is mild to moderate diverticulosis of the remaining colon without CT evidence of acute diverticulitis. 5. A 12 mm indeterminant low-attenuation lesion arises from the lower pole of the right kidney. This does not meet CT criteria for a simple cyst and is new from 06/01/2014. Follow-up with a nonemergent contrast enhanced renal protocol MRI is recommended for further assessment. 6. 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 This is of indeterminant chronicity and significance. --GI on case, will do EGD/Colon OP, hepatitis panel neg, CMV, EBV, parvovirus, stool culture and C. difficile Pending Outpatient EGD/scopic ultrasound recommended --Diarrhea improving Continue cefepime IV for now, clear liquid diet Headache for 2 months -Chronic, no new changes Abnormal LFTs possible NAFLD --Improving Follow-up Right renal mass incidental finding on CT abdomen --Nonemergent renal protocol MRI for right renal mass hx PE status post anticoagulation Hyperglycemia rule out DM -- a1c 6.1 Mood disorder, at baseline DVT prophylaxis per Lovenox subcu Full code Disposition Anticipate discharge to home tomorrow Labs checked ROS-No Headache, No Visual Changes, No Nausea, No Vomiting, No Fever, No Chills, No Neck Pain or Stiffness, No Chest Pain, No Palpitations, No SOB, No AVERY, No Cough, No Sputum, No Wheezing, +Abdominal Pain, No Diarrhea, No Hematemesis, No Hemoptysis, No Unexpected Weight Loss, No Flank pain, No Melena, No Hematochezia, No Frequency, No Urgency, No Burning, No Hematuria, No Rashes, No Diaphoresis. Appetite is Normal Physical Exam Gen-AAO x 3, NAD, Afebrile Head-NCAT, EOMI, PERRLA, Anicteric Sclera, No Posterior Pharyngeal Erythema Neck-Supple, No JVD, No Thyromegaly, No Masses, No LAD, No Bruits Lungs-Clear to Auscultation Bilaterally, No Rales, No Rhonchi, No Wheezing, No Crepitus Chest-No S4, +S1, +S2, No S3, No Murmurs, No Rubs, No Gallops, No Ectopy Abdomen-Soft, Bowel Sounds Present, Tender, Non Distended, No Hepatomegaly, No Splenomegaly, No Palpable Masses, No Rebound, No Rigidity, No Guarding Musculoskeletal-Full Range of Motion Bilaterally, No CVAT Extremities-No Cyanosis, No Clubbing, No Edema Nuero-Cranial Nerves II-XII grossly intact, Motor WNL, DTRs WNL, Strength WNL, Non Focal Psych-Normal Mood Admission and Anticipated Discharge Date Admission Date: May 09, 2020 Results & Data Results & Data ([facility]) Vital Signs (Past 12 Hours) Vital Signs Temp Pulse Pulse Resp BP BP Pulse Ox 05/11/20 07:30 36.7 C 78 18 115/79 94 05/11/20 07:17 87 05/11/20 03:42 36.6 C 91 H 18 125/83 91 05/11/20 01:14 91 H 05/10/20 23:00 36.7 C 86 18 124/77 91 (1) Abdominal pain Abdominal location: generalized Qualified Code(s): R10.84 - Generalized abdominal pain
[2020-05-11] MEDS: metroNIDAZOLE 500 MG TAB PO SCH ×2 (14:23→21:56)
--- NOTE | 2020-05-11 15:45 | Electrocardiogram Report ---
Test Reason : Blood Pressure : / mmHG Vent. Rate : 081 BPM Atrial Rate : 081 BPM P-R Int : 150 ms QRS Dur : 078 ms QT Int : 382 ms P-R-T Axes : 061 073 051 degrees QTc Int : 443 ms Normal sinus rhythm Normal ECG When compared with ECG of 03-JUL-2018 12:48, No significant change was found Confirmed by Vladimir Baron ([id number]) on 05/11/2020 3:45:18 PM Referred By: REFERRED SELF Confirmed By:Vladimir Baron
--- NOTE | 2020-05-11 15:54 | 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 Note ---
Date of Service: May 11, 2020 Aleah is improved today. The headache seems less severe but she is getting analgesia for her abdominal complaints which persist. Her liver enzyme a bnormalities are improving and the cause of this remains unclear and the hypercalcemia she had on an outpatient basis is not evident here. We did go over the MRI scan reports and the images with radiology and the suggestion that this might be intracranial hypertension is not felt to be highly likely and in fact the MR images have not changed since 2012 in terms of the partially empty sella and the slightly increased CSF space around the optic nerves Neurology is going to recommend that we see her on an outpatient basis in several weeks review the headaches and hopefully at that point the gastric issue and the elevated liver functions will have resolved and we can consider putting her on some medication such as gabapentin, magnesium and riboflavin as I really continue to think this is just a variation on her longstanding vascular headaches which have entered periods of relative remission and then reenter periods of time when they are more evident and I think now in association with her gastric issue and pain we simply have an exacerbation of her vascular headaches due to a systemic illness We are going to sign off the case at this point. It appears that she may well be discharged tomorrow if she has improvement in her abdominal pain and diarrhea Joey Tavares MD
[2020-05-11] MEDS: CIPROFLOXACIN 500 MG TAB PO SCH (18:17)
[2020-05-11] MEDS ORDERED: ONDANSETRON INJ 2 MG/ML 2 ML VIAL IV STA (22:22)
[2020-05-12] MEDS: MoRPHine SULFATE 4 MG/ML 1 ML CARP\\VIAL IV PRN ×2 (00:15→06:00)
[2020-05-12] MEDS: PROMETHAZINE HCL 12.5 MG in SODIUM CHLORIDE 0.9% 50 ML IV PRN (03:50)
[2020-05-12] MEDS: oxyCODONE HCL IR 5 MG TAB (IMMEDIATE RELEASE) PO PRN ×2 (03:50→11:36)
[2020-05-12] MEDS: metroNIDAZOLE 500 MG TAB PO SCH ×2 (05:59→14:32)
[2020-05-12] MEDS: LEVOTHYROXINE SODIUM 25 MCG TABLET PO SCH (05:59)
--- NOTE | 2020-05-12 08:56 | Discharge Summary ---
Date of Service May 12, 2020 Admission HPI Per Admitting Provider History obtained from patient and records. Medical history significant for PE status post anticoagulation, complicated diverticulitis status post surgery, GERD, ESTEBAN (CPAP noncompliance), mood disorder. Last confinement August 2017 for postop pulmonary embolism. Patient completed anticoagulation. 2 months history of achy lower abdominal pain with diarrhea symptoms. Stools kind of dark as per patient. No fever, no chills, no recent travel, no recent antibiotic Rx. No unusual weight loss. In the last week, patient noted worsening of achy abdominal pain. Patient also noted epigastric discomfort with nausea but without emesis symptoms. 2 months history of left-sided headache symptoms different from migraine attack with nausea, photophobia, transient blurred vision. Patient directed to ER by PCP. Patient received Ceftriaxone at the ER for UTI. Medical History as above No ischemia on recent outpatient pharmacologic stress test last week for intermittent chest pain symptoms. 2013 colonoscopy showed diverticulosis Surgical History : Hysterectomy, cholecystectomy, partial colectomy for diverticulitis, dental surgery, urologic procedures Family History : Prostate cancer, heart disease, stroke Personal/Social history : Past tobacco abuse, no EtOH intake, currently unemployed Admission Exam Per Admitting Provider GENERAL: Uncomfortable, obese, looks younger for stated age, no respiratory distress SKIN: Normal color, warm HEENT: [place] palpebral conjunctivae, no ptosis, dry buccal mucosa NECK : Supple, short neck, no tenderness CHEST : CTA, no tenderness HEART : RRR, no obvious murmurs ABDOMEN: Some distention, epigastric and hypogastric tenderness RECTAL : Intact sphincter, brown stool (FOBT negative) EXTREMITIES : Minimal LE swelling, no LE tenderness, no other conspicuous deformities noted NEUROLOGIC : Coherent, no facial asymmetry, no other gross focality Principal Diagnosis Pancolitis/Abdominal pain: Headache Abnormal LFTs possible NAFLD Right renal mass incidental finding on CT abdomen PE status post anticoagulation Hyperglycemia Mood disorder Discharge Exam See below Discharge Data Allergies Allergy/AdvReac Type Severity Reaction Status Date / Time No Known Allergies Allergy Verified 05/09/20 22:56 Consultations 05/09/20 21:17 ED Decision to Admit Stat 05/10/20 04:17 Consult Gastroenterology Routine 05/10/20 05:03 Consult Neurology Routine Ordered Studies 05/09/20 18:26 CT abd pelvis IV con only Stat 05/09/20 18:28 CT head/brain wo con Stat 05/10/20 00:00 MR MRCP Urgent MR brain wo/w con Urgent Current Diagnoses Sepsis, unspecified organism (05/09/20) Generalized abdominal pain (05/09/20) Nausea with vomiting, unspecified (05/09/20) Headache, unspecified (05/09/20) Allergies No Known Allergies Allergy (Verified 05/09/20 22:56) Height/Weight/Isolation Height 5 ft 3 in Weight 91 kg Chemistry 05/10/20 05/11/20 08:39 06:25 Sodium 140 139 Potassium 3.9 3.6 Chloride 109 H 107 Carbon Dioxide 26 27 Anion Gap 5.0 5.0 BUN 15 10 D Creatinine 0.90 0.89 Glucose 99 105 H Microbiology 05/09/20 23:08 Blood Aerobic Blood Culture - Preliminary No growth in Aerobic bottle after 48 hours. 05/09/20 23:08 Blood Anaerobic Blood Culture - Preliminary No growth in Anaerobic bottle after 48 hours. 05/09/20 23:07 Blood Aerobic Blood Culture - Preliminary No growth in Aerobic bottle after 48 hours. 05/09/20 23:07 Blood Anaerobic Blood Culture - Preliminary No growth in Anaerobic bottle after 48 hours. 05/11/20 17:30 Stool Escherichia coli Shiga Toxins Test - Pending 05/11/20 17:30 Stool Stool Culture - Pending 05/09/20 17:33 Urine,Clean Catch Urine Culture - Final More than three types of organisms present, all low counts mixed probable skin татьяна. No further identifications or sensitivities to follow. Hospital Course (1) Abdominal pain: Abdominal pain with diarrhea Secondary to bacterial gastroenteritis Rule out UTI --CT abdomen pelvis: 1. No acute infectious or inflammatory findings are identified in the abdomen or pelvis. 2. Hepatomegaly and severe hepatic steatosis. 3. There is postoperative change from sigmoid colon resection with colocolonic anastomosis. No bowel obstruction is seen. 4. There is mild to moderate diverticulosis of the remaining colon without CT evidence of acute diverticulitis. 5. A 12 mm indeterminant low-attenuation lesion arises from the lower pole of the right kidney. This does not meet CT criteria for a simple cyst and is new from 06/01/2014. Follow-up with a nonemergent contrast enhanced renal protocol MRI is recommended for further assessment. 6. 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 This is of indeterminant chronicity and significance. --GI on case, will do EGD/Colon OP, hepatitis panel neg, CMV, EBV, parvovirus, stool culture and C. difficile Pending Outpatient EGD/scopic ultrasound recommended --Diarrhea improving DC on PO Cipro and Flagyl Headache for 2 months -Chronic, no new changes Abnormal LFTs possible NAFLD --Improving Follow-up Right renal mass incidental finding on CT abdomen --Nonemergent renal protocol MRI for right renal mass hx PE status post anticoagulation Hyperglycemia rule out DM -- a1c 6.1 Mood disorder, at baseline DVT prophylaxis per Lovenox subcu Full code Disposition DC today and f/u c GI and Neurology Labs checked ROS-No Headache, No Visual Changes, No Nausea, No Vomiting, No Fever, No Chills, No Neck Pain or Stiffness, No Chest Pain, No Palpitations, No SOB, No AVERY, No Cough, No Sputum, No Wheezing, +Abdominal Pain, No Diarrhea, No Hematemesis, No Hemoptysis, No Unexpected Weight Loss, No Flank pain, No Melena, No Hematochezia, No Frequency, No Urgency, No Burning, No Hematuria, No Rashes, No Diaphoresis. Appetite is Normal Physical Exam Gen-AAO x 3, NAD, Afebrile Head-NCAT, EOMI, PERRLA, Anicteric Sclera, No Posterior Pharyngeal Erythema Neck-Supple, No JVD, No Thyromegaly, No Masses, No LAD, No Bruits Lungs-Clear to Auscultation Bilaterally, No Rales, No Rhonchi, No Wheezing, No Crepitus Chest-No S4, +S1, +S2, No S3, No Murmurs, No Rubs, No Gallops, No Ectopy Abdomen-Soft, Bowel Sounds Present, Tender, Non Distended, No Hepatomegaly, No Splenomegaly, No Palpable Masses, No Rebound, No Rigidity, No Guarding Musculoskeletal-Full Range of Motion Bilaterally, No CVAT Extremities-No Cyanosis, No Clubbing, No Edema Nuero-Cranial Nerves II-XII grossly intact, Motor WNL, DTRs WNL, Strength WNL, Non Focal Psych-Normal Mood Total Time Total Time Spent Total Time Spent (In Minutes): 45 mins Total Time Includes: Examination of the Patient, Discharge Planning, Medication Reconciliation and 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 With Other Providers Discharge Plan Discharge Items Patient Disposition: Home - Self-Care Reason For Visit: SEPSIS Discharge Diagnosis: Pancolitis/Abdominal pain: Headache Abnormal LFTs possible NAFLD Right renal mass incidental finding on CT abdomen PE status post anticoagulation Hyperglycemia Mood disorder Condition on Discharge: Good Activity: Resume your previous activity Lifting: Gradually increase as tolerated Bathing: No limitations Sexual Activity: When tolerated Exercise/Sports: None Driving/Machine Use: No limitations Weightbearing: Full weightbearing Non-emergency contact: Primary Care Provider, Compliance Consultant and Neurologist Call non-emergency contact if: you have any medication questions Follow-up/Referrals: Lucia Wiseman DO [Physician] - (Call for first opening) Joey Tavares MD [Physician] - (Call for follow up appt) Joey Crockett MD [Primary Care Provider] - (Date & Time 05/16/2020 2:00 PM Provider Joey Crockett III, MD Department Family [facility] ) Diet: Heart Healthy Addtl Attending Provider Instructions: Take antibiotics as prescribed Pending Studies at Discharge: Yes Studies:: [employer] Stand-Alone Forms: [facility], Opioid Pain Management, Work/School Release (Inpt), Smoking Cessation Medications and DC Order Prescriptions: New ciprofloxacin HCl 500 mg Tablet 500 mg PO BID Qty: 20 RF: 0 metronidazole 500 mg Tablet 500 mg PO Q8H Qty: 30 RF: 0 oxycodone 5 mg capsule 5 mg PO Q6H Qty: 30 RF: 0 Continued levothyroxine 25 mcg tablet 25 mcg PO DAILY RF: 0 sertraline 100 mg tablet 200 mg PO DAILY RF: 0 metformin 500 mg tablet extended release 24 hr 500 mg PO BID RF: 0 clonazepam [Klonopin] 0.5 mg tablet 0.5 mg PO TID PRN (Reason: Anxiety) RF: 0 Discontinued hydrocodone-acetaminophen [Vicodin HP] 10-300 mg tablet 1 tab PO Q6 PRN (Reason: Pain) RF: 0 Discharge Orders: Discharge Order (Routine); Ordered 05/12/20 Ordered By: Aki Hagan/Other Patient Handouts: A1C Admission Data Admit Date/Time: 05/09/20 23:32 Attending Provider: Aki Castillo Admit Provider: Henry Ferrari Primary Care Provider: Joey Crockett Other Providers: Henry Ferrari ; Shashank Wells ; Jacki Olivares ; Julio Kruger ; Mayra Lyons ; Jefry Novoa ; Lucia Wiseman ; Gibran Parnell ; Silas Logan ; Adrian Persaud ; Mayuri Araujo ; Heidy Clark ; Jerri Dudley ; Rosa Driver ; William Sanders ; Stephanie Salazar ; Joey Tavares ; Stephanie Wise ; Samir Fajardo
[2020-05-12] MEDS: SERTRALINE HCL 100 MG TABLET PO SCH (09:19)
[2020-05-12] MEDS: ENOXAPARIN INJ 40 MG/0.4 ML SYR SQ SCH (09:19)
[2020-05-12] MEDS: CIPROFLOXACIN 500 MG TAB PO SCH (09:19)
[2020-05-13 11:36] LABS: Codeine Urine NEGATIVE ng/mL (<50); Hydrocodone Urine NEGATIVE ng/mL (<50); Hydromor Urine NEGATIVE ng/mL (<50); Morphine Urine 4170 ng/mL (<50); Norhydrocodone Conf Ur 88 ng/mL (<50); Noroxycodone Urine 864 ng/mL (<50); Oxycodone Urine 571 ng/mL (<50); Oxymorph Urine 231 ng/mL (<50)
[2020-05-19 07:42] LABS: CMV IgG Antibody <0.60 U/mL; CMV IgM Antibody <30.00 AU/mL; Epstein Barr Virus Early Ag Ab >150.00 U/mL; Hepatitis A Antibody IgM NON-REACTIVE (NON-REACTIVE); Hepatitis B Core Antibody IgM NON-REACTIVE (NON-REACTIVE); Parvovirus IgG 0.2 (<0.9); Parvovirus IgM 0.1 (<0.9)
== END 2020-05-12 14:59 | disposition home or self-care (01) | DRG 872 ==
LOC: ED 16:45 → SUATTDRO 23:32 → 2N 23:32

== ENCOUNTER 2023-09-08 11:53 | Inpatient (IN) ==
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
--- OUTSIDE RECORDS SUMMARY | 2023-09-08 11:57 | External Medical Summary | Summary of Care ---
Author Name Unknown Organization [facility] Address [address] [place] [address] Phone [phone] Care Team Providers Care Dust Mill Operator Name Role Phone Bon GUPTA MD, Joey Ventura Primary Care Provider [phone] Reason for Visit * Reason Onset Date Comments Medication Refill 08/27/2023 Encounter Details Date Type Department Care Team (Late st Contact Info) Description 08/27/2023 Refill [facility] [address] [facility] [place] [address] Joey Crockett III, MD [address] [place] [address] Allergies No known active allergiesdocumented as of this encounter (statuses as of 08/28/2023) Medications Medication Sig Dispensed Refills Start Date [...] mouth in the morning. 0 05/14/2023 Active Sertraline HCl 100 MG Oral Tablet (Zoloft) TAKE 2 TABLETS BY MOUTH EVERY DAY FOR DEPRESSION AND ANXIETY Strength: 100 mg 180 Tablet 1 06/17/2023 Active LORazepam 1 MG Oral Tablet (Ativan) Take 1 Tablet by mouth every 8 hours as needed for Anxiety. 30 Tablet 1 06/17/2023 Active HYDROcodone-Acetamino phen 5-217 MG/10ML Oral Solution as needed. 0 Active Hospital, Clinic, or Other Facility Administered Medication Ordered Dose Route Frequency Start Date End Date Status vitamin b-12 (Cyanocobalamin) inj 1,000 mcgIndications:Postgastric surgery syndrome 1000 mcg IM [id number] 10/16/2022 07/20/2025 Active documented as of this encounter (statuses as of 08/28/2023) Active Problems Problem Noted Date Diagnosed Date [...] as of this encounter (statuses as of 08/28/2023) Resolved Problems Problem Noted Date Diagnosed Date Resolved Date Chronic obstructive pulmonary disease 11/15/2021 11/15/2021 Pre-operative examination 11/16/2020 Morbid obesity due to excess calories 10/27/2020 12/18/2021 MEDICATION USE AGREEMENT 05/14/2012 Overview: Updated 03/04/2015 MD Neli Briceño III's [place] Calculus of gallbladder with out mention of cholecystitis or obstruction 11/16/2020 documented as of this encounter (statuses as of 08/28/2023) Immunizations Name Administration Dates Next Due COVID-19 mRNA, LNP-s, No Pre serve, 2-Dose Series (PushPage) 11/24/2020,11/03/2020 Seasonal Influenza, PF, 6 M & above, IM , (FluLaval or Fluzone) 06/17/2023,04/24/2022,04/20/2020,2017,04/10/2017 Seasonal Influenza, Split, I IV3, With Preserve, [...] as of this encounter Miscellaneous Notes * Addendum Note - Mauri Mace LPN - 08/28/2023 11:46 AM ESTAddended by: MAURI MACE on: 08/28/2023 11:46 AM Modules accepted: Orders * Telephone Encounter - Mauri Mace LPN - 08/28/2023 11:23 AM EST Patient called. Given message. Said she went to the Er on the @ [facility] Having pain left side ofabdomen. Diverticulosis and fat necrosis of the anterior abdominal wall is what was found on the CT scan. The pain she has is an 8 or 9. Seven if sits. Going on vacation Saturday morning. She doesn't know if she will be able to take the ride. She is asking for oxycodone. She got 4 of them in the ER and it helped her. Informed she needs to have an ER f/u appt. Attempted to make an appt. For Saturday. Patient said she is leaving on Saturday and can't come in. Patient had said she was leaving on Saturday, but changed it to Saturday while talking. Asking for something to be ordered for pain without coming in. Please advise. Pending Prescriptions: Disp Refills Sertraline HCl 100 MG Oral Tablet (Zoloft)180 Ta*1 Sig: TAKE 2 TABLETS BY MOUTH EVERY DAY FOR DEPRESSION AND ANXIETY Strength: 100 mg Last Visit: 08/05/2023 (in office), 09/12/2022 (telemedicine) Next Visit: Visit date not found Last date the medication was ordered: 06/17/23 Patient Active Problem List Diagnosis Code Major depressive disorder F32.9 Nausea with vomiting R11.2 Diarrhea R19.7 Esophageal reflux K21.9 Backache M54.9 Thoracic and lumbosacral neuritis M54.14, M54.17 Degeneration of lumbosacral intervertebral disc M51.37 Spinal stenosis, lumbar M48.061 Endometriosis N80.9 ESTEBAN (obstructive sleep apnea) G47.33 Major depressive disorder, recurrent, unspecified (HCC) F33.9 Prophylactic use of low molecular weight heparin for venous thromboembolism Z79.01 H/O dysplastic nevus Z86.018 Postgastric surgery syndrome K91.1 Dehydration E86.0 Prediabetes R73.03 Pain medication agreement broken Z91.148 Labs: Lab Results Component Value Date/Time CREATININE - [facility] 0.8 12/01/2020 08:07 AM CREATININE - [facility] 1.0 04/15/2020 01:47 PM CREATININE-[facility] 0.77 05/03/2021 12:00 AM Lab Results Component Value Date/Time POTASSIUM - [facility] 4.1 12/01/2020 08:07 AM POTASSIUM - [facility] 4.7 04/15/2020 01:47 PM POTASSIUM-[facility] 4.3 05/03/2021 12:00 AM Lab Results Component Value Date/Time TSH - [facility] 2.29 12/01/2019 01:58 PM TSH - [facility] 1.56 05/03/2021 12:00 AM Lab Results Component Value Date/Time LDL (CALCULATED)-[facility] 162 (A) 05/03/2021 12:00 AM LDL (CALCULATED)-[facility] 108 (A) 03/22/2016 12:00 AM LDL CHOLESTEROL (CALCULATED) - [facility] 178 (H) 01/20/2015 10:35 AM LDL CHOLESTEROL (CALCULATED) - [facility] 178 (H) 01/20/2015 10:32 AM LDL CHOLESTEROL (DIRECT MEASURE) - [facility] NOT APPLICABLE 01/20/2015 10:32 AM Lab Results Component Value Date/Time ALT - [facility] 13 09/27/2015 12:14 PM ALT-[facility] 18 05/03/2021 12:00 AM Hemoglobin AIC Results: Lab Results Component Value Date/Time HEMOGLOBIN A1C - [facility] 5.6 06/30/2013 04:04 PM * Telephone Encounter - Beverly Pierce MD - 08/27/2023 6:29 PM EST Lorazepam was last prescribed by Dr. Crockett in May, will need to follow up with him. Oxycodone has not been prescribed by our office that I see. Was last prescribed in March 2023 by someone in [place]. We did not discuss this at visit on 08/05/23. * Telephone Encounter - Mayra Ingram CPhT - 08/27/2023 1:10 PM EST Pt is calling to request Oxycodone 5 MG, and Clonazepam 1 MG. Caller states this medication was last prescribed by her PCP, I was unable to find the medication on the pt's chart, but she was adamant that it was prescribed by her PCP. Pt states she thought the medication was going to be sent after her appt on 08/05/23. If there are any questions regarding the request pt can be contacted at [phone]. Please advise. Thank you, Lizzette Ingram CPhT Supervisor Dials II Centralized Clinical Pharmacy Services (CCPS) (Formerly Telepharmacy) 08/27/2023,1:19 PM documented in this encounter Plan of Treatment Upcoming Encounters Date Type Department Care Team (Late st Contact Info) Description 11/14/2023 1:00 PM EDT Telemedicine [facility], [facility] [address] [place] [address] Pravin Ibanez, PhD [address] [facility] [place] [address] Scheduled Procedures Name Priority Associated Diagnoses Date/Ti [...] 05/09/2020 HbA1c 05/03/2022 05/03/2021, 06/30/2013 COVID-19 Vaccine ( season) 2023 07/25/2021, 11/24/2020, 11/03/2020 Mammogram 08/03/2023 08/03/2022, 08/01, 10/25/2015, [...] the patient have Health Care Power of Chemical Dependency Professional? No Code Status History Code Status Date [...] the patient have Health Care Power of Chemical Dependency Professional? No Full Code 06/15/2011 8:59 PM 06/18/2011 3:31 PM Thi s order reflects the patients wishes and were consensually agreed upon. Question Answer Comments Discussion of Advance Directives occurred with: Not Discussed Does the patient have a Living Will? No Does the patient have Health Care Power of Chemical Dependency Professional? No Care Teams Dust Mill Operator Relationship Specialty Start Date End Date Joey Crockett III, MD [address] [place] [address] PCP - General 07/08/07 documented as of this encounter
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
--- OUTSIDE RECORDS SUMMARY | 2023-09-08 11:57 | External Medical Summary | Summary of Care ---
Author Name Unknown Organization [facility] Address [address] [place] [address] Phone [phone] Care Team Providers Care Production Or Plant Engineer Name Role Phone Bon GUPTA MD, Joey Ventura Primary Care Provider [phone] Reason for Visit * Reason Onset Date Comments Appointment 06/04/2023 Encounter Details Date Type Department Care Team (Late st Contact Info) Description 06/04/2023 Telephone Family Practice [facility] [address] [place] [address] Joey Crockett III, MD [address] [place] [address] Appointment Allergies No known active allergiesdocumented as of this encounter (statuses as of 09/03/2023) Medications Medication Sig Dispensed Refills Start Date [...] Active LORazepam 1 MG Oral Tablet (Ativan) 0 09/04/2022 3 Discontinue d(Refill) Sertraline HCl 100 MG Oral Tablet (Zoloft) TAKE 2 TABLETS BY MOUTH EVERY DAY FOR DEPRESSION AND ANXIETY Strength: 100 mg 180 Tablet 1 01/08/2023 3 Discontinue d(Refill) Hospital, Clinic, or Other Facility Administered Medication Ordered Dose Route Frequency Start Date End Date Status vitamin b-12 (Cyanocobalamin) inj 1,000 mcgIndications:Postgastric surgery syndrome 1000 mcg IM [id number] 10/16/2022 07/20/2025 Active documented as of this encounter (statuses as of 09/03/2023) Active Problems Problem Noted Date Diagnosed Date [...] as of this encounter (statuses as of 09/03/2023) Resolved Problems Problem Noted Date Diagnosed Date Resolved Date Chronic obstructive pulmonary disease 11/15/2021 11/15/2021 Pre-operative examination 11/16/2020 Morbid obesity due to excess calories 10/27/2020 12/18/2021 MEDICATION USE AGREEMENT 05/14/2012 Overview: Updated 03/04/2015 MD Neli Briceño III's [place] Calculus of gallbladder with out mention of cholecystitis or obstruction 11/16/2020 documented as of this encounter (statuses as of 09/03/2023) Immunizations Name Administration Dates Next Due COVID-19 mRNA, LNP-s, No Pre serve, 2-Dose Series (HESKA) 11/24/2020,11/03/2020 Seasonal Influenza, PF, 6 M & [...] encounter Miscellaneous Notes * Telephone Encounter - Lynda Aragon CPhT - 06/04/2023 12:20 PM EST Pt calling to verify what time and date is her appt. Advised Pt time and date of her appt. Thank you, Lynda Aragon CPhT Doctor Of Audiology II Centralized Clinical Pharmacy Services (CCPS) (Formerly Telepharmacy) 06/04/2023,12:22 PM documented in this encounter Plan of Treatment Upcoming Encounters Date Type Department Care Team (Late st Contact Info) Description 11/14/2023 1:00 PM EDT Telemedicine Psychology, [facility] [address] [place] [address] Pravin Ibanez, PhD 200 [facility] [place] [address] Scheduled Procedures Name Priority Associated Diagnoses Date/Ti [...] 05/09/2020 HbA1c 05/03/2022 05/03/2021, 06/30/2013 COVID-19 Vaccine (4 - 2023-24 season) 2023 07/25/2021, 11/24/2020, 11/03/2020 Mammogram 08/03/2023 [...] the patient have Health Care Power of Manager State? No Code Status History Code Status Date [...] the patient have Health Care Power of Manager State? No Full Code 06/15/2011 8:59 PM 06/18/2011 3:31 PM Thi s order reflects the patients wishes and were consensually agreed upon. Question Answer Comments Discussion of Advance Directives occurred with: Not Discussed Does the patient have a Living Will? No Does the patient have Health Care Power of Manager State? No Care Teams Production Or Plant Engineer Relationship Specialty Start Date End Date Joey Crockett III, MD [address] [facility] [place] [address] PCP - General 07/08/07 documented as of this encounter
--- OUTSIDE RECORDS SUMMARY | 2023-09-08 11:57 | External Medical Summary | Summary of Care ---
Author Name Unknown Organization [facility] Address [address] [place] [address] Phone [phone] Care Team Providers Care Hydrostatic Tester Name Role Phone Bon GUPTA MD, Joey Ventura Primary Care Provider [phone] Reason for Visit * Reason Onset Date Comments Medical Questions 08/16/2023 Encounter Details Date Type Department Care Team (Late st Contact Info) Description 08/16/2023 Telephone Family Practice [facility] [address] [place] [address] Joey Crockett III, MD [address] [place] [address] Medical Questions Allergies No known active allergiesdocumented as of this encounter (statuses as of 08/16/2023) Medications Medication Sig Dispensed Refills Start Date [...] 1,000 mcgIndications:Postgastric surgery syndrome 1000 mcg IM [id number] 10/16/2022 07/20/2025 Active documented as of this encounter (statuses as of 08/16/2023) Active Problems Problem Noted Date Diagnosed Date [...] as of this encounter (statuses as of 08/16/2023) Resolved Problems Problem Noted Date Diagnosed Date Resolved Date Chronic obstructive pulmonary disease 11/15/2021 11/15/2021 Pre-operative examination 11/16/2020 Morbid obesity due to excess calories 10/27/2020 12/18/2021 MEDICATION USE AGREEMENT 05/14/2012 Overview: Updated 03/04/2015 MD Neli Briceño III's [place] Calculus of gallbladder with out mention of cholecystitis or obstruction 11/16/2020 documented as of this encounter (statuses as of 08/16/2023) Immunizations Name Administration Dates Next Due COVID-19 mRNA, LNP-s, No Pre serve, 2-Dose Series (SendMe) 11/24/2020,11/03/2020 Seasonal Influenza, PF, 6 M & [...] encounter Miscellaneous Notes * Telephone Encounter - Ama Page PHARM Tech - 08/16/2023 3:35 PM EST Pt called office in error. Thank you, Ama Page [facility] Fur Storage Clerk II Centralized Clinical Pharmacy Services (CCPS) (Formerly Telepharmacy) 08/16/2023, 3:36 PM documented in this encounter Plan of Treatment Upcoming Encounters Date Type Department Care Team (Late st Contact Info) Description 08/23/2023 9:30 AM EST Imaging Vascular Lab, [facility] 2nd [facility], [address] [place] [address] 11/14/2023 1:00 PM EDT Telemedicine Psychology, [facility] [address] [place], [place] [address] Pravin Ibanez, PhD [address] [place] [address] Scheduled Procedures Name Priority Associated Diagnoses Date/Ti [...] the patient have Health Care Power of Sample Preparation Supervisor? No Code Status History Code Status Date [...] the patient have Health Care Power of Sample Preparation Supervisor? No Full Code 06/15/2011 8:59 PM 06/18/2011 3:31 PM Thi s order reflects the patients wishes and were consensually agreed upon. Question Answer Comments Discussion of Advance Directives occurred with: Not Discussed Does the patient have a Living Will? No Does the patient have Health Care Power of Sample Preparation Supervisor? No Care Teams Hydrostatic Tester Relationship Specialty Start Date End Date Bon GUPTA, Joey Ventura MD [address] [facility] [place] [address] PCP - General 07/08/07 documented as of this encounter
--- OUTSIDE RECORDS SUMMARY | 2023-09-08 11:57 | External Medical Summary | Summary of Care ---
Author Name Unknown Organization [facility] Address [address] [place] [address] Phone [phone] Care Team Providers Care Licensed Insurance Sales Agent Name Role Phone Bon GUPTA MD, Joey Ventura Primary Care Provider [phone] Reason for Visit * Reason Onset Date Comments Medication Refill 08/27/2023 Encounter Details Date Type Department Care Team (Late st Contact Info) Description 08/27/2023 Telephone Family Practice [facility] [address] [place] [address] Joey Crockett III, MD [address] [place] [address] Medication Refill Allergies No known active allergiesdocumented as of this encounter (statuses as of 08/27/2023) Medications Medication Sig Dispensed Refills Start Date [...] 1,000 mcgIndications:Postgastric surgery syndrome 1000 mcg IM [id number] 10/16/2022 07/20/2025 Active documented as of this encounter (statuses as of 08/27/2023) Active Problems Problem Noted Date Diagnosed Date [...] as of this encounter (statuses as of 08/27/2023) Resolved Problems Problem Noted Date Diagnosed Date Resolved Date Chronic obstructive pulmonary disease 11/15/2021 11/15/2021 Pre-operative examination 11/16/2020 Morbid obesity due to excess calories 10/27/2020 12/18/2021 MEDICATION USE AGREEMENT 05/14/2012 Overview: Updated 03/04/2015 MD Neli Briceño III's [place] Calculus of gallbladder with out mention of cholecystitis or obstruction 11/16/2020 documented as of this encounter (statuses as of 08/27/2023) Immunizations Name Administration Dates Next Due COVID-19 mRNA, LNP-s, No Pre serve, 2-Dose Series (The Daily Muse) 11/24/2020,11/03/2020 Seasonal Influenza, PF, 6 M & [...] encounter Miscellaneous Notes * Telephone Encounter - Beverly Pierce MD - 08/27/2023 6:29 PM EST Lorazepam was last prescribed by Dr. Crockett in May, will need to follow up with him. Oxycodone has not been prescribed by our office that I see. Was last prescribed in March 2023 by someone in [place]. We did not discuss this at visit [...] the request pt can be contacted at [phone]. Please advise. Thank you, Lizzette Ingram CPhT Remote Sensing Advisor II Centralized Clinical Pharmacy Services (CCPS) (Formerly Telepharmacy) 08/27/2023,1:19 PM documented in this encounter Plan of Treatment Upcoming Encounters Date Type Department Care Team (Late st Contact Info) Description 11/14/2023 1:00 PM EDT Telemedicine Psychology, [facility] [address] [place] [address] Pravin Ibanez, PhD 200 [facility] [place] [address] Scheduled Procedures Name Priority Associated Diagnoses Date/Ti [...] the patient have Health Care Power of Motor Inspection Mechanic? No Code Status History Code Status Date [...] the patient have Health Care Power of Motor Inspection Mechanic? No Full Code 06/15/2011 8:59 PM 06/18/2011 3:31 PM Thi s order reflects the patients wishes and were consensually agreed upon. Question Answer Comments Discussion of Advance Directives occurred with: Not Discussed Does the patient have a Living Will? No Does the patient have Health Care Power of Motor Inspection Mechanic? No Care Teams Licensed Insurance Sales Agent Relationship Specialty Start Date End Date Joey Crockett III, MD [address] [facility] [place] [address] PCP - General 07/08/07 documented as of this encounter
--- NOTE | 2023-09-08 12:03 | Emergency Department Note ---
Impression & Plan Abdominal pain, Elevated troponin, Nausea & vomiting ED Provider Note NAME: ZEFERINO PICKARD AGE: 53 SEX: F : 1970 ARRIVES VIA: Walk-In INFORMANT: Patient, ED PROVIDER(S): Richard Mcadams MD CHIEF COMPLAINT: Abdominal pain, nausea vomiting MEDICAL DECISION MAKING: Patient presents due to concern for abdominal pain nausea vomiting. IV established and blood work is obtained. CT of the head and CT abdomen pelvis ordered. Blood work shows a normal white count H&H and platelet count. The patient's kidney function is unremarkable but with prerenal azotemia. The patient did receive IV fluids. Glucose 117 but normal anion gap and bicarb not DKA. Mild hypokalemia 3.4. Troponin is 17.1. This is an increase from a comparison completed in July. The patient denies any chest pains or shortness of breath no signs of obvious ischemic changes on EKG. Patient's CT of the head does not show any obvious ICH. CT abdomen pelvis shows fat necrosis anterior abdominal wall which is decreased in size from prior. No evidence of diverticulitis no evidence of bowel obstruction repeat troponin was ordered. I did request hospitalist consultation given the patient's chronic abdominal pain elevated troponin. After further discussion with Dr. Askew the patient will be admitted to the medicine service for GI consultation. Discussion w/ other healthcare providers: Tiara Pack PA-C and Dr. Askew Prior /Outside records reviewed: I did review a recent visit from August 14. The patient was seen for abdominal pain and did have left lower quadrant pain. The patient did have a CT at that time which did show findings compatible with fat necrosis along the anterior abdominal wall along the patient surgical scar. Patient's blood work was reportedly normal. Differential diagnosis: Gastroenteritis, food borne illness, infection, appendicitis, diverticulitis, inflammatory bowel disease, obstruction among others were considered. Diagnostics, as interpreted by me: ECG: Normal sinus rhythm, rate 76, normal intervals, normal axis no ST elevations, T wave version aVL but not need 1 Cardiac monitoring: An order was placed for continuous cardiac monitoring. The monitor shows a rate of 77 with sinus rhythm. Patient was placed on pulse oximetry Medical decision rules: None Imaging studies: See below HPI: Patient presents due to concern for abdominal pain and nausea. The patient reportedly suffer from chronic nausea for a long time. Most recently has had worsening bouts of nausea during the time they were in [place] and drove home. Patient does have a prior history of hemorrhagic stroke requiring craniectomy and with the described as multiple procedures for brain bleed associated stroke. Patient does have some issues with expressive aphasia and cognition on occasion but otherwise does not have significant deficits. The patient does have a prior history of Maryuri-en-Y gastric bypass completed 2 years ago. Patient family member are both unsure as to where this occurred but they believe it was at [facility]. Patient does suffer from abdominal pain for which they have tried Tylenol and ibuprofen typically 2 of each which has not been successful in helping with any pain. Patient had been seen here recently for some symptoms as well. Patient has had some occasional vomiting no blood in the vomit or stool. No chest pains or shortness of breath. The patient has had an occasional nonproductive cough. No alcohol or tobacco use. The patient has had a prior hysterectomy and cholecystectomy and does not have an appendix. PAST MEDICAL HISTORY: See Below PAST SURGICAL HISTORY: See Below SOCIAL HISTORY: See Below HOME MEDICATIONS: See Below ALLERGIES: See Below VITALS: See Below PHYSICAL EXAMINATION: GENERAL: Fatigable in appearance but nontoxic EYE EXAM: Normal conjunctiva. PERRL, no anisocoria and EOM's grossly intact w/o pain. OROPHARYNX: Moist mucus membranes, grossly normal dentition. NECK: Trachea midline, no stridor. Supple, no nuchal rigidity, no adenopathy, non-tender. No signs of meningismus. FROM of the neck with good chin to chest and neck extension. LUNGS: Clear to auscultation. Normal chest wall mechanics. HEART: NSR, no MRG. ABDOMEN: Abdomen soft, pain noted in the mid and left-sided abdomen without significant tenderness to palpation the right abdomen, no masses, no rebound or guarding. BACK: No CVA TTP. SKIN: No rashes and no bruising. UPPER EXTREMITIES: Upper extremities are grossly normal. LOWER EXTREMITIES: Grossly normal, no edema. NEURO EXAM: A&O x3, cranial nerves II-XII grossly intact, normal speech, moves all 4 extremities. Past Med/Surg History Medical History Hemorrhagic stroke Anxiety Pulmonary embolism Endometriosis ESTEBAN (obstructive sleep apnea) GERD (gastroesophageal reflux disease) Depression Surgical History H/O craniotomy H/O wisdom tooth extraction History of partial colectomy History of hysterectomy Hx of cholecystectomy History of appendectomy Social History Smoking Status: Former smoker Tobacco Type: E-cigarettes / Vaping Hx Substance Use: No Preferred Language: Israeli 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 Ability: Effective Lay Out Worker Required: No Beliefs That Will Affect Care: None Current Living Situation: Spouse and Family Feels Safe at Home: Yes Assistive Devices: None Allergies Allergies Allergy/AdvReac Type Severity Reaction Status Date / Time No Known Allergies Allergy Verified 09/08/23 14:37 Home Meds Home Medications Medication Instructions Recorded Confirmed clonazepam 0.5 mg tablet (Klonopin) 0 mg PO TID PRN Anxiety 07/03/18 09/08/23 sertraline 100 mg tablet 0 mg PO QAM 05/09/20 09/08/23 enoxaparin 40 mg/0.4 mL 0 mg subcut DAILY 12/05/20 09/08/23 subcutaneous syringe omeprazole 20 mg capsule,delayed 0 mg PO DAILY 12/05/20 09/08/23 release triamcinolone acetonide 0.1 % 0 applic topical BID 12/05/20 09/08/23 topical cream levetiracetam 500 mg tablet 0 mg PO BID 08/14/23 09/08/23 levothyroxine 25 mcg tablet 0 mcg PO DAILY 08/14/23 09/08/23 lorazepam 1 mg tablet 1 mg PO Q8H PRN anxiety 08/14/23 09/08/23 ondansetron 4 mg disintegrating 0 mg PO Q6H PRN nausea and vomiting 09/08/23 09/08/23 tablet oxycodone 5 mg capsule 0 mg PO Q6H 09/08/23 09/08/23 tramadol 50 mg tablet 0 mg PO Q4H PRN pain 09/08/23 09/08/23 Results & Data (ED) Vital Signs Vital Signs - 24 hr 09/08/23 11:55 09/08/23 12:07 09/08/23 12:30 Temperature 36.3 C L Temperature Source Temporal Artery Scan Pulse Rate 111 H 72 Pulse Rate [Left Apical] 83 Respiratory Rate 18 15 20 Respiratory Effort / Characteristics Non-Labored Spontaneous Respiratory Depth Normal Blood Pressure 121/91 111/70 Blood Pressure [Right Arm] 146/94 H Blood Pressure Mean 101 83 Blood Pressure Mean [Right Arm] 111 Pulse Oximetry 97 98 97 Oxygen Delivery Method Room Air Room Air Room Air Sepsis Recent Fever Within 48 Hours No Sepsis New/Unexplained Change in Mental Status No Sepsis Action Taken by Nursing No Action Required 09/08/23 12:33 09/08/23 13:30 09/08/23 13:41 Temperature Temperature Source Pulse Rate 72 69 96 H Pulse Rate [Left Apical] Respiratory Rate 14 32 H Respiratory Effort / Characteristics Respiratory Depth Blood Pressure 99/68 L Blood Pressure [Right Arm] Blood Pressure Mean 78 Blood Pressure Mean [Right Arm] Pulse Oximetry Oxygen Delivery Method Sepsis Recent Fever Within 48 Hours Sepsis New/Unexplained Change in Mental Status Sepsis Action Taken by Nursing 09/08/23 14:00 09/08/23 14:30 Temperature Temperature Source Pulse Rate 71 76 Pulse Rate [Left Apical] Respiratory Rate 19 16 Respiratory Effort / Characteristics Respiratory Depth Blood Pressure 92/67 L 109/66 Blood Pressure [Right Arm] Blood Pressure Mean 75 80 Blood Pressure Mean [Right Arm] Pulse Oximetry 95 96 Oxygen Delivery Method Room Air Room Air Sepsis Recent Fever Within 48 Hours Sepsis New/Unexplained Change in Mental Status Sepsis Action Taken by [facility] Medications Current Medication List: was personally reviewed by me Laboratory Data Attestation: I reviewed the patient's lab results. 09/08/23 12:08 09/08/23 12:08 Lab Results 09/08/23 09/08/23 Range/Units 12:08 14:18 WBC 8.27 (4.8-10.8) K/ul RBC 5.29 (4.20-5.40) M/uL Hgb 14.0 (12.0-16.0) g/dl Hct 43.0 (37.0-47.0) % MCV 81.3 (80.0-100.0) fL MCH 26.5 (25.0-34.0) pg MCHC 32.6 (32.0-36.0) g/dL RDW Std Deviation 42.5 (36.4-46.3) fL RDW Coeff of Aysha 14.7 H (11.5-14.5) % Plt Count 292 (130-400) K/uL MPV 11.8 (9.4-12.4) fL Immature Gran % (Auto) 0.2 % Neut % (Auto) 59.3 % Lymph % (Auto) 28.2 % [place] % (Auto) 10.6 % Eos % (Auto) 1.0 % Baso % (Auto) 0.7 % Neut # (Auto) 4.90 (1.40-6.50) K/uL Lymph # (Auto) 2.33 (1.20-3.40) K/uL [place] # (Auto) 0.88 H (0.11-0.59) K/uL Eos # (Auto) 0.08 (0.00-0.50) K/uL Baso # (Auto) 0.06 (0.00-0.20) K/uL Immature Gran # (Auto) 0.02 (0.01-0.20) K/uL Sodium 136 (136-145) mmol/L Potassium 3.4 L (3.5-5.1) mmol/L Chloride 98 (98-107) mmol/L Carbon Dioxide 29 (21-32) mmol/L Anion Gap 9 (3-11) BUN 17 (6-23) mg/dl Creatinine 0.72 (0.6-1.2) mg/dl Est Cr Clr Drug Dosing 62.5 ml/min Est GFR ( Amer) 110.8 ml/min Est GFR (Non-Af Amer) 95.6 ml/min BUN/Creatinine Ratio 23.6 H (10-20) Glucose 117 H (70-99(Fasting)) mg/dl Calcium 9.9 (8.6-10.3) mg/dl Total Bilirubin 0.8 (0.2-1.0) mg/dl AST 15 (13-39) U/L ALT 9 (7-52) U/L Alkaline Phosphatase 67 (34-104) U/L Total Creatine Kinase 24 L (26-192) U/L Troponin I High Sens 17.1 H 18.5 H (0-14) pg/ml Total Protein 7.5 (6.0-8.3) gm/dl Albumin 4.7 (3.4-5.0) gm/dl Globulin 2.8 (2.5-4.0) gm/dl Albumin/Globulin Ratio 1.7 (0.9-2) Lipase 16 (11-82) U/L Administered Medications Discontinued Medications Sodium Chloride (Nss) 1,000 mls @ 999 mls/hr IV .Q1H1M STA Stop: 09/08/23 13:22 Last Infusion: 09/08/23 13:25 Dose: Infused Documented By: Admin: 09/08/23 12:29 Dose: 999 mls/hr Documented By: LAQUITA Ioversol (Optiray 320 100ml) 94 ml IV ONCE ONE Stop: 09/08/23 13:04 Last Admin: 09/08/23 13:03 Dose: 94 ml Documented By: FAHEEM Metoclopramide HCl (Metoclopramide Hcl Inj 5 Mg/Ml 2 Ml Vial) 10 mg IV NOW STA Stop: 09/08/23 12:23 Last Admin: 09/08/23 12:30 Dose: 10 mg Documented By: LAQUITA Morphine Sulfate (Morphine Sulfate 4 Mg/Ml 1 Ml Carp\Vial) 4 mg IV NOW STA Stop: 09/08/23 12:23 Last Admin: 09/08/23 12:30 Dose: 4 mg Documented By: LAQUITA Imaging Data Radiologist's Impression: Abdomen/Pelvis CT 09/08/23 12:23 CT abd pelvis IV con only CLINICAL HISTORY: diffuse ab pain, h/o RYGB TECHNIQUE: Helical axial images of the abdomen and pelvis were obtained and displayed. Automated dose lowering techniques and/or adjustment according to patient size were utilized for this exam. This exam was performed with intravenous contrast. CT DOSE: 309.26 mGy.cm COMPARISON: Comparison is made to CT abdomen pelvis 08/14/2023 FINDINGS: Lower chest: No acute abnormality. Liver: Unremarkable. No focal lesions are seen. Gallbladder and biliary tree: Patient is status post cholecystectomy. No intra- or extrahepatic biliary ductal dilation. Pancreas: Unremarkable, no focal lesions. Spleen: Unremarkable. Adrenals: Unremarkable. Kidneys and ureters: Right renal cyst is seen. Bladder: Limited evaluation due to underdistention. Reproductive organs: Patient is status post hysterectomy. Bowel: Postsurgical changes are seen about the rectum. A few diverticula are noted. Gastric bypass surgery is seen. Lymph nodes Retroperitoneal: Unremarkable. Pelvic: Unremarkable. Mesenteric: Unremarkable. Peritoneum: Normal. Vessels: Unremarkable. Abdominal wall: Unremarkable. Bones: Small left abdominal wall lipoma lesion has significantly decreased in size, now measuring approximately 9 mm in diameter. IMPRESSION: 1. No acute abnormalities and in particular no evidence of bowel obstruction. 2. Diverticulosis without diverticulitis. 3. Status post cholecystectomy. 4. Fat necrosis in the anterior abdominal wall has decreased in size compatible with evolutionary change. ACT 112: Negative or not required by law. Electronically signed by: Francisco J Link M.D. 09/08/2023 1:[address] 09/08/23 13:15 CT head/brain wo con CLINICAL HISTORY: h/o ICH, n/v Technique: Contiguous axial CT images of the head were acquired from the base of the skull to the vertex without intravenous contrast administration. Images were viewed in brain, subdural and bone windows. Automated dose lowering techniques and/or adjustment according to patient size were utilized for this exam. Comparison: Comparison is made to CT head 07/15/2023 Findings: The ventricles, basal cisterns, and cerebral sulci are normal. There is no acute intracranial hemorrhage or evidence of acute territorial infarction. Neither mass effect, shift of the midline structures, nor abnormal extra-axial fluid collections are shown. Old postcraniotomy changes are seen in the left calvarium. Old left external capsule infarct is seen. Imaged portions of the paranasal sinuses and mastoid air cells are clear. The orbits appear normal. There are no acute fractures of the calvaria or scalp swelling. Impression: No acute intracranial hemorrhage, no evidence of acute territorial infarction or other acute intracranial disease process. ACT 112: Negative or not required by law. Electronically signed by: Francisco J Link M.D. 09/08/2023 1:45 PM Discharge Plan Visit Data Chief Complaint: Nausea Stated Complaint: NAUSEA ED Provider: Richard Mcadams Discharge Problem: Abdominal pain, Elevated troponin, Nausea & vomiting Forms Stand Alone Forms: My [facility] [employer] Prescriptions Prescriptions: No Action sertraline 100 mg tablet 0 mg PO QAM Rx Instructions: Per patient, this medication has been making her sick. However, she took 100mg on the morning of 09/08/23 after not taking it for 5 days. Original Directions: 200mg by mouth once in the morning clonazepam [Klonopin] 0.5 mg tablet 0 mg PO TID PRN (Reason: Anxiety) Rx Instructions: is out of this and has been put on Ativan. Wanted to leave on med list. triamcinolone acetonide 0.1 % cream 0 applic TOPICAL BID Rx Instructions: APPLY TO HANDS AND FEET NEEDED FOR RASH Per pt, she wants this medication left on the list but hasn't been taking it. enoxaparin 40 mg/0.4 mL syringe 0 mg subcut DAILY Rx Instructions: per pt she isnt sure of this medication but wanted left on list omeprazole 20 mg capsule,delayed release(DR/EC) 0 mg PO DAILY Rx Instructions: Per pt, she wants this medication left on the list but hasn't been taking it. levetiracetam 500 mg tablet 0 mg PO BID Rx Instructions: per pt she isnt sure of this medication but wanted left on list levothyroxine 25 mcg tablet 0 mcg PO DAILY Rx Instructions: per pt she isnt sure of this medication but wanted left on list lorazepam 1 mg tablet 1 mg PO Q8H PRN (Reason: anxiety ) tramadol 50 mg tablet 0 mg PO Q4H PRN (Reason: pain) Rx Instructions: Per pt, she wants this medication left on the list but hasn't been taking it. oxycodone 5 mg capsule 0 mg PO Q6H Rx Instructions: Per pt, she wants this medication left on the list but hasn't been taking it. ondansetron 4 mg tablet,disintegrating 0 mg PO Q6H PRN (Reason: nausea and vomiting) Rx Instructions: Per pt, she wants this medication left on the list but hasn't been taking it. Referrals Referrals: Joey Crockett MD [Primary Care Provider] - Discharge Problem: Abdominal pain Qualifiers: Abdominal location: generalized Qualified Code(s): R10.84 - Generalized abdominal pain Nausea & vomiting Qualifiers: Vomiting type: unspecified Qualified Code(s): R11.2 - Nausea with vomiting, unspecified
[2023-09-08] MEDS: SODIUM CHLORIDE 0.9% 1,000 ML IV STA (12:29)
[2023-09-08] MEDS: MoRPHine SULFATE 4 MG/ML 1 ML CARP\\VIAL IV STA (12:30)
[2023-09-08] MEDS: METOCLOPRAMIDE HCL INJ 5 MG/ML 2 ML VIAL IV STA (12:30)
[2023-09-08 12:38] LABS: Basophils # (auto) 0.06 K/uL (0.00-0.20); Basophils % (auto) 0.7 %; Eosinophils # (auto) 0.08 K/uL (0.00-0.50); Immature Granulocytes # (auto) 0.02 K/uL (0.01-0.20); Immature Granulocytes % (auto) 0.2 %; Lymphocytes # (auto) 2.33 K/uL (1.20-3.40); Lymphocytes % (auto) 28.2 %; Mean Corpuscular Hemoglobin 26.5 pg (25.0-34.0); Mean Corpuscular Hgb Conc 32.6 g/dL (32.0-36.0); Mean Corpuscular Volume 81.3 fL (80.0-100.0); Mean Platelet Volume 11.8 fL (9.4-12.4); Monocytes # (auto) 0.88 K/uL (0.11-0.59); Monocytes % (auto) 10.6 %; Neutrophils % (auto) 59.3 %; Platelet Count 292 K/uL (130-400); RDW Coefficient of Variation 14.7 % (11.5-14.5); RDW Standard Deviation 42.5 fL (36.4-46.3); Red Blood Count 5.29 M/uL (4.20-5.40); White Blood Count 8.27 K/ul (4.8-10.8)
[2023-09-08 12:57] LABS: Albumin Globulin Ratio 1.7 (0.9-2); Albumin Level 4.7 gm/dl (3.4-5.0); BUN Creatinine Ratio 23.6 (10-20); Bilirubin,Total 0.8 mg/dl (0.2-1.0); Calcium 9.9 mg/dl (8.6-10.3); Creatinine Clr Calc Pharmacy 62.5 ml/min; Est GFR (African American) 110.8 ml/min; Est GFR (Non-African American) 95.6 ml/min; Globulin 2.8 gm/dl (2.5-4.0); Potassium 3.4 mmol/L (3.5-5.1); Total Protein 7.5 gm/dl (6.0-8.3)
[2023-09-08] MEDS: OPTIRAY 320 100ml IV ONE (13:03)
[2023-09-08 13:04] LABS: Troponin I High Sensitivity 17.1 pg/ml (0-14)
--- NOTE | 2023-09-08 13:24 | CT Scan Report ---
CT abd pelvis IV con only CLINICAL HISTORY: diffuse ab pain, h/o RYGB TECHNIQUE: Helical axial images of the abdomen and pelvis were obtained and displayed. Automated dose lowering techniques and/or adjustment according to patient size were utilized for this exam. This e xam was performed with intravenous contrast. CT DOSE: 309.26 mGy.cm COMPARISON: Comparison is made to CT abdomen pelvis 08/14/2023 FINDINGS: Lower chest: No acute abnormality. Liver: Unremarkable. No focal lesions are seen. Gallbladder and biliary tree: Patient is status post cholecystectomy. No intra- or extrahepatic bilia ry ductal dilation. Pancreas: Unremarkable, no focal lesions. Spleen: Unremarkable. Adrenals: Unremarkable. Kidneys and ureters: Right renal cyst is seen. Bladder: Limited evaluation due to underdistention. Reproductive organs: Patient is status post hysterectomy. Bowel: Postsurgical changes are seen about the rectum. A few diverticula are noted. Gastric bypass santoyo rgery is seen. Lymph nodes Retroperitoneal: Unremarkable. Pelvic: Unremarkable. Mesenteric: Unremarkable. Peritoneum: Normal. Vessels: Unremarkable. Abdominal wall: Unremarkable. Bones: Small left abdominal wall lipoma lesion has significantly decreased in size, now measuring lourdes roximately 9 mm in diameter. IMPRESSION: 1. No acute abnormalities and in particular no evidence of bowel obstruction. 2. Diverticulosis without diverticulitis. 3. Status post cholecystectomy. 4. Fat necrosis in the anterior abdominal wall has decreased in size compatible with evolutionary ch haseeb. ACT 112: Negative or not required by law. Electronically signed by: Francisco J Link M.D. 09/08/2023 1:22 PM
--- NOTE | 2023-09-08 13:47 | CT Scan Report ---
CT head/brain wo con CLINICAL HISTORY: h/o ICH, n/v Technique: Contiguous axial CT images of the head were acquired from the base of the skull to the brunilda jasbir without intravenous contrast administration. Images were viewed in brain, subdural and bone windo ws. Automated dose lowering techniques and/or adjustment according to patient size were utilized for this exam. Comparison: Comparison is made to CT head 07/15/2023 Findings: The ventricles, basal cisterns, and cerebral sulci are normal. There is no acute intracranial hemorrh age or evidence of acute territorial infarction. Neither mass effect, shift of the midline structures , nor abnormal extra-axial fluid collections are shown. Old postcraniotomy changes are seen in the l eft calvarium. Old left external capsule infarct is seen. Imaged portions of the paranasal sinuses an d mastoid air cells are clear. The orbits appear normal. There are no acute fractures of the calvari a or scalp swelling. Impression: No acute intracranial hemorrhage, no evidence of acute territorial infarction or other acute intracra nial disease process. ACT 112: Negative or not required by law. Electronically signed by: Francisco J Link M.D. 09/08/2023 1:45 PM
--- NOTE | 2023-09-08 14:37 | History & Physical Report ---
Date of Service September 08, 2023 Assessment & Plan (1) Abdominal pain: (2) Nausea: (3) History of Salom[place]-en-Y gastric bypass: (4) History of hemorrhagic cerebrovascular accident (CVA) with residual deficit: (5) Moderate protein-calorie malnutrition: (6) Unintentional weight loss: (7) Hypokalemia: Plan This is a 53 yr old F who has significant past medical history of left basal ganglia hemorrhagic CVA requiring craniectomy in October 2022 with eventual cranioplasty in March 2023, history of Salom[place]-en-Y 2020, hx of PE in 2018, and prediabetes who presents to ED secondary to persistent nausea, abdominal pain and significant weight loss. Abdominal pain Persistent Nausea Moderate protein calorie malnutrition Unintentional weight loss hx of Salom[place] n Y gastric Bypass in 2020 admit to med tele pt with persistent N, inability to tolerate oral intake and ~ 20kg weight loss in 1 year BMI 17.7, 43.[address] a/p with contrast w/o abnormality pt with hx of Nsaid use over last 3 months, ? 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 NPO after midnight in event procedure tomorrow Elevated troponin pt w/o chest pain, EKG unremarkable she did have 1 episode of CP 4 days ago that resolved, her CK is normal will cycle trops for completeness and obtain echo but suspect it is in setting of dehydration Hypokalemia replace Hx of Left basal ganglia hemorrhagic CVA in 2022 s/p evacuation and craniectomy October of 2022 with cranioplasty in march of 2023 follows [facility], last seen 08/08/23, note reviewed in EPIC Hx of Hypothyroidism previously on levothyroxine; however stopped taking 1 year ago TSH 0.689 DVT ppx: SCDS in setting of above FULL CODE PCP: Dr. Crockett Dispo: admit to medical Pt was seen and examined in collaboration with Dr. Askew, please see addendum A total of 76 was spent coordinating, documenting, and providing care for this patient excluding time spent in the performance of separately billed services. This included personally viewing all current laboratories and imaging studies, medication reconciliation, outpatient chart review, and discussion with specialists. History of Present Illness Chief Complaint: nausea and weight loss. Primary Care Provider: Joey Crockett MD This is a 53 yr old F who has significant past medical history of left basal ganglia hemorrhagic CVA requiring craniectomy in October 2022 with eventual cranioplasty in March 2023, history of Salom[place]-en-Y in 2020, hx of PE in 2018, and prediabetes who presents to ED secondary to persistent nausea, abdominal pain and significant weight loss. She states she has had hx of salomón en y 3 years ago. She did well for 2 years until she had a hemorrhagic CVA requiring craniotomy. Since then she has been suffering from chronic nausea. When she eats she gets significantly nauseated and can't eat. She has lost a significant amount of weight and is now under 100 lbs. She states she can only eat 4 oz at time. "I can't do it any longer." She does occasionally vomit, but its liquid. She had an episode of diarrhea this morning, but she typically has intermittent loose stools. She states nothing tastes the same and has no appetite. She has been taking ibuprofen and tylenol on a regular basis for the last 3 months due to her abdominal pain. She does have abdominal pain in LLQ and suprapubic region. She denies f/c/s, chest pain, sob, hematemesis, rashes, dysuria, increased urg/freq with urination. This past Saturday she ate something and her said she turned purple. Since then she went down hill. she experience an episode of chest pain when she was lying flat. She described it as a chest tightness but this has since resolved and never recurred. She last followed up with neurosurgery on with [facility]. She has since been lost to follow up with nutrition and weight management. Allergies Allergy/AdvReac Type Severity Reaction Status Date / Time No Known Allergies Allergy Verified 09/08/23 14:37 Home Medications Medication Instructions Recorded Confirmed Type lorazepam 1 mg tablet 1 mg PO TID PRN Anxiety 09/08/23 09/08/23 History ondansetron HCl 4 mg tablet 4 mg PO Q6H PRN Nausea 09/08/23 09/08/23 History sertraline 100 mg tablet 200 mg PO DAILY 09/08/23 09/08/23 History Past Med/Surg History Medical History (Updated 09/08/23 @ 15:29 by Tiara Elizabeth PA-C) Nausea Hemorrhagic stroke Anxiety Pulmonary embolism Endometriosis ESTEBAN (obstructive sleep apnea) GERD (gastroesophageal reflux disease) Depression Surgical History (Updated 09/08/23 @ 15:19 by Tiara Elizabeth PA-C) H/O craniotomy H/O wisdom tooth extraction History of partial colectomy History of hysterectomy Hx of cholecystectomy History of appendectomy Social History Smoking Status: Former smoker Tobacco Type: E-cigarettes / Vaping Hx Substance Use: No Preferred Language: Urdu 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 Ability: Effective 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 Askew addendum for physical exam findings. Results & Data Results & Data Vital Signs (Past 12 Hours) Vital Signs Temp Pulse Pulse Resp BP BP Pulse Ox 09/08/23 12:33 72 09/08/23 12:30 72 20 111/70 97 09/08/23 12:07 83 15 146/94 H 98 09/08/23 11:55 36.3 C L 111 H 18 121/91 97 O2 Del Method 09/08/23 12:33 09/08/23 12:30 Room Air 09/08/23 12:07 Room Air 09/08/23 11:55 Room Air Laboratory Results I have independently reviewed and interpreted patient's admitting labs including CBC, CMP, lipase, and troponin. Diagnostic Findings Abdomen/Pelvis CT 09/08/23 12:23 CT abd pelvis IV con only CLINICAL HISTORY: diffuse ab pain, h/o RYGB TECHNIQUE: Helical axial images of the abdomen and pelvis were obtained and displayed. Automated dose lowering techniques and/or adjustment according to patient size were utilized for this exam. This exam was performed with intravenous contrast. CT DOSE: 309.26 mGy.cm COMPARISON: Comparison is made to CT abdomen pelvis 08/14/2023 FINDINGS: Lower chest: No acute abnormality. Liver: Unremarkable. No focal lesions are seen. Gallbladder and biliary tree: Patient is status post cholecystectomy. No intra- or extrahepatic biliary ductal dilation. Pancreas: Unremarkable, no focal lesions. Spleen: Unremarkable. Adrenals: Unremarkable. Kidneys and ureters: Right renal cyst is seen. Bladder: Limited evaluation due to underdistention. Reproductive organs: Patient is status post hysterectomy. Bowel: Postsurgical changes are seen about the rectum. A few diverticula are noted. Gastric bypass surgery is seen. Lymph nodes Retroperitoneal: Unremarkable. Pelvic: Unremarkable. Mesenteric: Unremarkable. Peritoneum: Normal. Vessels: Unremarkable. Abdominal wall: Unremarkable. Bones: Small left abdominal wall lipoma lesion has significantly decreased in size, now measuring approximately 9 mm in diameter. IMPRESSION: 1. No acute abnormalities and in particular no evidence of bowel obstruction. 2. Diverticulosis without diverticulitis. 3. Status post cholecystectomy. 4. Fat necrosis in the anterior abdominal wall has decreased in size compatible with evolutionary change. ACT 112: Negative or not required by law. Electronically signed by: Francisco J Link M.D. 09/08/2023 1:[address] 09/08/23 13:15 CT head/brain wo con CLINICAL HISTORY: h/o ICH, n/v Technique: Contiguous axial CT images of the head were acquired from the base of the skull to the vertex without intravenous contrast administration. Images were viewed in brain, subdural and bone windows. Automated dose lowering techniques and/or adjustment according to patient size were utilized for this exam. Comparison: Comparison is made to CT head 07/15/2023 Findings: The ventricles, basal cisterns, and cerebral sulci are normal. There is no acute intracranial hemorrhage or evidence of acute territorial infarction. Neither mass effect, shift of the midline structures, nor abnormal extra-axial fluid collections are shown. Old postcraniotomy changes are seen in the left calvarium. Old left external capsule infarct is seen. Imaged portions of the paranasal sinuses and mastoid air cells are clear. The orbits appear normal. There are no acute fractures of the calvaria or scalp swelling. Impression: No acute intracranial hemorrhage, no evidence of acute territorial infarction or other acute intracranial disease process. ACT 112: Negative or not required by law. Electronically signed by: Francisco J Link M.D. 09/08/2023 1:45 PM Medications Administered Medication List Discontinued Medications Sodium Chloride (Nss) 1,000 mls @ 999 mls/hr IV .Q1H1M STA Stop: 09/08/23 13:22 Last Infusion: 09/08/23 13:25 Dose: Infused Documented By: Admin: 09/08/23 12:29 Dose: 999 mls/hr Documented By: LAQUITA Ioversol (Optiray 320 100ml) 94 ml IV ONCE ONE Stop: 09/08/23 13:04 Last Admin: 09/08/23 13:03 Dose: 94 ml Documented By: FAHEEM Metoclopramide HCl (Metoclopramide Hcl Inj 5 Mg/Ml 2 Ml Vial) 10 mg IV NOW STA Stop: 09/08/23 12:23 Last Admin: 09/08/23 12:30 Dose: 10 mg Documented By: LAQUITA Morphine Sulfate (Morphine Sulfate 4 Mg/Ml 1 Ml Carp\\Vial) 4 mg IV NOW STA Stop: 09/08/23 12:23 Last Admin: 09/08/23 12:30 Dose: 4 mg Documented By: LAQUITA COVID-19 Results Results COVID-19 Adm Lab Results: RBC 5.29 M/uL (4.20-5.40) 09/08/23 WBC 8.27 K/ul (4.8-10.8) 09/08/23 Hgb 14.0 g/dl (12.0-16.0) 09/08/23 Hct 43.0 % (37.0-47.0) 09/08/23 Plt Count 292 K/uL (130-400) 09/08/23 Neutrophils (%) (Auto) 59.3 % 09/08/23 Lymphocytes (%) (Auto) 28.2 % 09/08/23 Monocytes # (Auto) 0.88 K/uL (0.11-0.59) H 09/08/23 Eosinophils # (Auto) 0.08 K/uL (0.00-0.50) 09/08/23 Immature Granulocyte % (Auto) 0.2 % 09/08/23 Neutrophils # (Auto) 4.90 K/uL (1.40-6.50) 09/08/23 Lymphocytes # (Auto) 2.33 K/uL (1.20-3.40) 09/08/23 Monocytes # (Auto) 0.88 K/uL (0.11-0.59) H 09/08/23 Eosinophils # (Auto) 0.08 K/uL (0.00-0.50) 09/08/23 Basophils # (Auto) 0.06 K/uL (0.00-0.20) 09/08/23 Immature Granulocyte # (Auto) 0.02 K/uL (0.01-0.20) 4 Na 136 mmol/L (136-145) 09/08/23 K 3.4 mmol/L (3.5-5.1) L 09/08/23 Cl 98 mmol/L (98-107) 09/08/23 CO2 29 mmol/L (21-32) 09/08/23 Anion Gap 9 (3-11) 09/08/23 BUN 17 mg/dl (6-23) 09/08/23 Creatinine 0.72 mg/dl (0.6-1.2) 09/08/23 BUN/Creatinine Ratio 23.6 (10-20) H 09/08/23 Glucose Level 117 mg/dl (70-99(Fasting)) H 09/08/23 Ca 9.9 mg/dl (8.6-10.3) 09/08/23 Total Bilirubin 0.8 mg/dl (0.2-1.0) 09/08/23 AST/SGOT 15 U/L (13-39) 09/08/23 ALT/SGPT 9 U/L (7-52) 09/08/23 Alkaline Phosphatase 67 U/L (34-104) 09/08/23 Total Protein 7.5 gm/dl (6.0-8.3) 09/08/23 Albumin 4.7 gm/dl (3.4-5.0) 09/08/23 Globulin 2.8 gm/dl (2.5-4.0) 09/08/23 Albumin/Globulin Ratio 1.7 (0.9-2) 09/08/23 Total CK 24 U/L (26-192) L 09/08/23 Code Status & VTE Plan Code Status FULLCODE Supervising Physician Co-Signing Physician Notes I have seen and discussed the case with the collaborating advanced practitioner. I agree with the above H&P. I have reviewed and confirmed the patients medical history, the findings on physical examination, and the patients diagnosis and treatment plan with Glenn MENDEZ and agree with the information documented. In short, Ms. Frank is a 53 year old woman with prior history of pulmonary emboli (2018), hypothyroidism, gastric bypass 11/2020, intraparenchymal hemorrhage s/p decompressive left hemicraniectomy 11/2022 who is admitted for unintentional weight loss and acute on chronic nausea. Patient has not undergone recent EGD/C-scope since bypass surgery in 2020. She reports worsening nausea with intermittent vomiting, progressive over last 3 months. Patient with recent weight as OP at 51 Kgs, now 43.8kgs. ROS mostly positive to some degree: denies bleeding, but endorses intermittent diarrhea. Endorses occasional chest pain at rest, usually with nausea. Denies headache, endorses chronic issues with cognition, mostly with short term memory. Reports taking combination of tylenol and ibuprofen for 3 months multiple times daily. GENERAL APPEARANCE: AxOx4, frail appearing woman HEENT: NC, left temporal surgical deformity from craniectomy well healed surgical incisions MMM. EOMI, clear conjunctiva, oropharynx clear. NECK: Supple without lymphadenopathy. No stiffness or restricted ROM. HEART: Normal rate and regular rhythm, normal S1/S1, no m/r/g LUNGS: CTAB, moving air well. No crackles or wheezes are heard. ABDOMEN: Soft, nontender, nondistended with good bowel sounds heard. Tenderness with notably deep palpation mostly in LLQ guided by patient BACK: No CVAT, no obvious deformity. EXTREMITIES: Without cyanosis, clubbing or edema. NEUROLOGICAL: Grossly nonfocal. Alert and oriented, moving all 4 extremities. CN not formally tested but appear grossly intact. Skin: Warm and dry without any rash. #Acute on chronic nausea #unintentional weight loss #Moderate protein calorie malnutrition BMI 17.7, ~14 kilo weight loss in 1 month Nausea worsening than baseline, reports ibuprofen use multiple times daily -CT AP w/o obstruction, acute process, reported; s/p hysterectomy, ch olecystectomy -Start PPI BID -Antiemetics prn -CLD for now, NPO midnight -GI consult to discuss timing of scope given notable weight loss and deterioration of QoL -Last scopes prior to bypass -Bypass labs: zinc, b1, iron/ferritin, b12, folate -Borderline MCV, would anticipate element of hemoconcentration on labs with hgb of 14; now 1L in with maintenance fluids #elevated troponin Reports chest pain >1 week ago, no active symptoms; potentially elevated iso malnutrition/nausea/vomiting -Trend to peak -ECHO for baseline #Hypothyroidism -Reports not taking Synthroid for "years", repeat TSH, resume synthroid as appropriate Rest of plan as above I spent a total of 35 minutes coordinating, documenting, and providing care for this patient excluding time spent in the performance of separately billed services. All of the aforementioned completed outside of collaborating with the assigned advanced practitioner for a full treatment plan. I have reviewed the advanced practitioner's documentation, and I agree with, and take responsibility for the plan of care (1) Abdominal pain Abdominal location: generalized Qualified Code(s): R10.84 - Generalized abdominal pain
[2023-09-08] MEDS ORDERED: ACETAMINOPHEN 1,000 MG/100 ML VIAL IV STA (14:56)
[2023-09-08 15:06] LABS: Troponin I High Sensitivity 18.5 pg/ml (0-14)
--- NOTE | 2023-09-08 15:10 | Electrocardiogram Report ---
Test Reason : Blood Pressure : / mmHG Vent. Rate : 076 BPM Atrial Rate : 076 BPM P-R Int : 138 ms QRS Dur : 072 ms QT Int : 392 ms P-R-T Axes : 059 078 061 degrees QTc Int : 441 ms Normal sinus rhythm Normal ECG When compared with ECG of 15-JUL-2023 17:58, No significant change was found Confirmed by Nigel Wolfe ([id number]) on 09/08/2023 3:10:00 PM Referred By: REFERRED SELF Confirmed By:Nigel Wolfe
[2023-09-08] MEDS: FAMOTIDINE 20MG IV PUSH 20 MG/5 ML SYR IV STA (15:21)
[2023-09-08 15:22] LABS: Thyroid Stimulating Hormone 0.689 uIu/ml (0.300-4.500)
[2023-09-08 15:22] LABS: Appearance Urine Clear (Clear); Bilirubin Urine Negative (Negative); Blood Urine Negative (Negative); Color Urine Yellow; Glucose Urine UA Negative (Negative); Ketones Urine 1+ (Negative); Leukocyte Esterase Urine Negative (Negative); Nitrite Urine Negative (Negative); Protein Urine Negative (Negative); Specific Gravity Urine > 1.045 (1.000-1.030); Urobilinogen Urine Negative (Negative); pH Urine 5.5 (4.5-7.5)
[2023-09-08] MEDS: ACETAMINOPHEN 10MG/ML Custom 650 MG in EMPTY BAG 0 ML IV STA (15:23)
[2023-09-08] MEDS: POTASSIUM CHLORIDE / WTR 10 MEQ/100 ML PLCT IV ONE (15:42)
[2023-09-08] MEDS ORDERED: ALUMINUM/MAGNESIUM SUSP 30 ML UDC PO PRN (17:31)
[2023-09-08] MEDS ORDERED: LORazepam 1 MG TAB PO PRN (17:31)
[2023-09-08] MEDS: SODIUM CHLORIDE 0.9% 1,000 ML IV SCH (18:40)
[2023-09-08] MEDS: ACETAMINOPHEN 325 MG TAB PO PRN (18:44)
[2023-09-08] MEDS: ONDANSETRON INJ 2 MG/ML 2 ML VIAL IV PRN (21:54)
[2023-09-08] MEDS: PANTOprazole 40 MG in SYRINGE 0 ML IV SCH (21:54)
[2023-09-08] MEDS: PROMETHAZINE HCL 6.25 MG in SODIUM CHLORIDE 0.9% 50 ML IV PRN (23:24)
[2023-09-08] MEDS: KETOROLAC TROMETHAMINE 15 MG/ML VIAL IV ONE (23:25)
[2023-09-09] MEDS: KETOROLAC TROMETHAMINE 15 MG/ML VIAL IV ONE (05:19)
[2023-09-09 06:43] LABS: Hematocrit (blood only) 32.5 % (37.0-47.0); Hemoglobin 10.7 g/dl (12.0-16.0); Mean Corpuscular Hgb Conc 32.9 g/dL (32.0-36.0); Mean Corpuscular Volume 81.9 fL (80.0-100.0); Mean Platelet Volume 11.7 fL (9.4-12.4); Platelet Count 171 K/uL (130-400); RDW Coefficient of Variation 14.6 % (11.5-14.5); RDW Standard Deviation 43.8 fL (36.4-46.3); Red Blood Count 3.97 M/uL (4.20-5.40); White Blood Count 4.68 K/ul (4.8-10.8)
[2023-09-09 07:07] LABS: Estimated Average Glucose 117 mg/dl; Hemoglobin A1C 5.7 % (4.5-5.6)
[2023-09-09 07:10] LABS: Basophils # (auto) 0.04 K/uL (0.00-0.20); Basophils % (auto) 0.9 %; Eosinophils # (auto) 0.09 K/uL (0.00-0.50); Eosinophils % (auto) 1.9 %; Immature Granulocytes # (auto) 0.01 K/uL (0.01-0.20); Immature Granulocytes % (auto) 0.2 %; Lymphocytes # (auto) 2.45 K/uL (1.20-3.40); Lymphocytes % (auto) 52.4 %; Monocytes # (auto) 0.42 K/uL (0.11-0.59); Neutrophils # (auto) 1.67 K/uL (1.40-6.50); Neutrophils % (auto) 35.6 %; Ovalocytes 1+
[2023-09-09 07:29] LABS: Albumin Globulin Ratio 2.1 (0.9-2); Albumin Level 3.6 gm/dl (3.4-5.0); BUN Creatinine Ratio 21.1 (10-20); Bilirubin,Total 0.5 mg/dl (0.2-1.0); Calcium 8.4 mg/dl (8.6-10.3); Creatinine Clr Calc Pharmacy 78.9 ml/min; Est GFR (African American) 122.7 ml/min; Est GFR (Non-African American) 105.8 ml/min; Globulin 1.7 gm/dl (2.5-4.0); Magnesium 1.8 mg/dl (1.7-2.4); Potassium 3.4 mmol/L (3.5-5.1); Total Protein 5.3 gm/dl (6.0-8.3)
--- NOTE | 2023-09-09 08:37 | Gastrointestinal Consultation ---
Date of Consultation September 09, 2023 Assessment & Plan (1) Unintentional weight loss: 53 year old female with history of left basal ganglia hemorrhagic CVA requiring craniectomy in October 2022 with eventual cranioplasty in March 2023, history of Salomón-en-Y in 2020, hx of PE in 2018, and prediabetes admitted w/ nausea, abdominal pain and weight loss since CVA. DDX discussed. Stop NSAIDs IV PPI BID x 48 hours then PO PPI BID Anti-emetics PRN Analgesia PRN EGD timing to be determined, likely OP Thank you for allowing us to participate in the care of this patient. Please call with any acute changes, questions or concerns. Please see addendum below with additional recommendation from my supervising physician. Supervising Physician Co-Signing Physician Notes I personally saw and evaluated the patient on 09/09/2023 with MONALISA Oh and agree with her findings and plan of care. Abdomen soft and tender in epigastric and LLQ. 53 y/o F with history of salomón-en-y in 2020, left basal ganglia hemorrhagic CVA requiring craniectomy in October 2022 with eventual cranioplasty in March 2023, hx of PE in 2018 admitted with nausea, vomiting, and weight loss. Patient reports since her stroke she has had nausea and vomiting with inability to eat but the past month it has significantly worsened and she reports she can no longer tolerate PO. She has lost 30 lbs in 3 months and has persistent N/V despite anti-emetics. States she is also having abdominal pain and "can't go on like this anymore." She did initially lose 70 lbs after salomón-en-y but lost 30 more lbs for a total of 100 lbs in the past 3 months. She had been taking some NSAIDs but unclear amount. She denies any alcohol abuse or tobacco abuse. Denies any complications from her gastric bypass in the past including strictures or ulceration. CT abd/pelvis completed which showed no acute abnormalities or evidence of obstruction. last EGD in 2020 normal. We will plan EGD tomorrow given ongoing weight loss and symptoms. NPO at midnight. Ok for clear liquid diet today if tolerates. Anti-emetics scheduled. Can give dose of IV Emend if not responding to zofran, phenergan, or compazine. PPI 40 mg BID. Maggy Larios DO Gastroenterology and Hepatology History of Present Illness Reason for Consultation: nausea/vomiting, weight loss Requesting Physician: Ron Attending Physician: Devon Velasquez MD History of Present Illness 53 year old female with history of left basal ganglia hemorrhagic CVA requiring craniectomy in October 2022 with eventual cranioplasty in March 2023, history of Salomón-en-Y in 2020, hx of PE in 2018, and prediabetes who presents to ED secondary to persistent nausea, abdominal pain and significant weight loss. GI was asked to evaluate for nausea/vomiting and weight loss. She notes symptoms started at time of stroke and have been persistent since. Daily nausea, attempted PO intake increases nausea and results in emesis. Emesis is small volume, liquid.She has lower abd pain, mostly in LLQ. She denies black or bloody stools. She has had ongoing weight loss since CVA. H&P suggests she has been on NSAIDs She is not sure what medication she is taking when I ask her Denies ETOH Denies tobacco CTAP 2023: No acute abnormalities and in particular no evidence of bowel obstruction. Diverticulosis without diverticulitis. Status post cholecystectomy. Fat necrosis in the anterior abdominal wall has decreased in size compatible with evolutionary change. EGD 2020: No gross lesions in esophagus. - Z-line regular, 38 cm from the incisors. - No gross lesions in the stomach. Biopsied. - No gross lesions in the second portion of the duodenum. Colonoscopy 2020: - The examined portion of the terminal ileum appeared normal. - The examined colon appeared normal. Biopsied. - Diverticulosis in the ascending and sigmoid colon - most prominent in the sigmoid colon. - Internal hemorrhoids. Allergies Allergy/AdvReac Type Severity Reaction Status Date / Time No Known Allergies Allergy Verified 09/08/23 14:37 Home Medications Medication Instructions Recorded Confirmed Type lorazepam 1 mg tablet 1 mg PO TID PRN Anxiety 09/08/23 09/08/23 History ondansetron HCl 4 mg tablet 4 mg PO Q6H PRN Nausea 09/08/23 09/08/23 History sertraline 100 mg tablet 200 mg PO DAILY 09/08/23 09/08/23 History Patient History Medical History (Updated 09/08/23 @ 15:29 by Tiara Elizabeth PA-C) Nausea Hemorrhagic stroke Anxiety Pulmonary embolism Endometriosis ESTEBAN (obstructive sleep apnea) GERD (gastroesophageal reflux disease) Depression Surgical History (Updated 09/08/23 @ 15:19 by Tiara Elizabeth PA-C) H/O craniotomy H/O wisdom tooth extraction History of partial colectomy History of hysterectomy Hx of cholecystectomy History of appendectomy Social History Smoking Status: Current every day smoker Tobacco Type: E-cigarettes / Vaping Hx Substance Use: No Preferred Language: Citizen Of [place] 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 Ability: Effective Roadway Technician Required: No Beliefs That Will Affect Care: None Current Living Situation: Spouse Feels Safe at Home: Yes Safety Concerns: Feels Safe At This Time Assistive Devices: None Review of Systems Review of Systems: All systems reviewed & are unremarkable except as noted in HPI & below Physical Exam Constitutional: + thin; no acute distress Respiratory: normal respiratory effort, lungs clear to auscultation Cardiovascular: Rate/Rhythm: regular rate Gastrointestinal (Abdomen): Percussion/Palpation: + abdomen tender (LLQ) and abdomen soft Skin: no rashes, warm and dry Results & Data Vital Signs (Past 12 Hours) Vital Signs Temp Pulse Pulse Pulse Resp BP BP 09/09/23 07:59 36.3 C L 50 L 19 09/09/23 03:03 36.2 C L 51 L 16 09/09/23 00:28 61 09/08/23 23:19 36.7 C 65 18 96/66 L 09/08/23 21:18 37 C 54 L 16 09/08/23 20:30 56 L 17 92/64 L BP Pulse Ox O2 Del Method 09/09/23 07:59 104/69 98 Room Air 09/09/23 03:03 94/56 L 99 Room Air 09/09/23 00:28 09/08/23 23:19 95 Room Air 09/08/23 21:18 116/72 97 Room Air 09/08/23 20:30 99 Laboratory Results 09/09/23 09/09/23 09/09/23 Range/Units 08:07 05:50 02:55 WBC 4.68 L (4.8-10.8) K/ul RBC 3.97 L (4.20-5.40) M/uL Hgb 10.7 L D (12.0-16.0) g/dl Hct 32.5 L (37.0-47.0) % MCV 81.9 (80.0-100.0) fL MCH 27.0 (25.0-34.0) pg MCHC 32.9 (32.0-36.0) g/dL RDW Std Deviation 43.8 (36.4-46.3) fL RDW Coeff of Aysha 14.6 H (11.5-14.5) % Plt Count 171 (130-400) K/uL MPV 11.7 (9.4-12.4) fL Immature Gran % (Auto) 0.2 % Neut % (Auto) 35.6 % Lymph % (Auto) 52.4 % Jenkins % (Auto) 9.0 % Eos % (Auto) 1.9 % Baso % (Auto) 0.9 % Neut # (Auto) 1.67 (1.40-6.50) K/uL Lymph # (Auto) 2.45 (1.20-3.40) K/uL Jenkins # (Auto) 0.42 (0.11-0.59) K/uL Eos # (Auto) 0.09 (0.00-0.50) K/uL Baso # (Auto) 0.04 (0.00-0.20) K/uL Immature Gran # (Auto) 0.01 (0.01-0.20) K/uL Ovalocytes 1+ Sodium 140 (136-145) mmol/L Potassium 3.4 L (3.5-5.1) mmol/L Chloride 107 (98-107) mmol/L Carbon Dioxide 28 (21-32) mmol/L Anion Gap 5 (3-11) BUN 12 (6-23) mg/dl Creatinine 0.57 L (0.6-1.2) mg/dl Est Cr Clr Drug Dosing 78.9 ml/min Est GFR ( Amer) 122.7 ml/min Est GFR (Non-Af Amer) 105.8 ml/min BUN/Creatinine Ratio 21.1 H (10-20) Glucose 82 (70-99(Fasting)) mg/dl Estimat Average Glucose 117 mg/dl Hemoglobin A1c 5.7 H (4.5-5.6) % Calcium 8.4 L (8.6-10.3) mg/dl Magnesium 1.8 (1.7-2.4) mg/dl Iron 107 (35-150) mcg/dl Ferritin 50.0 (8-388) ng/ml Total Bilirubin 0.5 (0.2-1.0) mg/dl AST 11 L (13-39) U/L ALT 7 (7-52) U/L Alkaline Phosphatase 47 (34-104) U/L Total Creatine Kinase (26-192) U/L Troponin I High Sens 13.9 (0-14) pg/ml Total Protein 5.3 L D (6.0-8.3) gm/dl Albumin 3.6 (3.4-5.0) gm/dl Globulin 1.7 L (2.5-4.0) gm/dl Albumin/Globulin Ratio 2.1 H (0.9-2) Lipase (11-82) U/L Vitamin A Pending Cancelled Vitamin B1 Pending Cancelled Vitamin B12 769 (180-914) pg/ml 25-OH Vitamin D Total 24.6 L (30-100) ng/ml TSH (0.300-4.500) uIu/ml Urine Color Urine Appearance (Clear) Urine pH (4.5-7.5) Ur Specific [place] (1.000-1.030) Urine Protein (Negative) Urine Glucose (UA) (Negative) Urine Ketones (Negative) Urine Blood (Negative) Urine Nitrite (Negative) Urine Bilirubin (Negative) Urine Urobilinogen (Negative) Ur Leukocyte Esterase (Negative) Zinc Pending 09/08/23 09/08/23 09/08/23 Range/Units 19:59 14:51 14:18 WBC (4.8-10.8) K/ul RBC (4.20-5.40) M/uL Hgb (12.0-16.0) g/dl Hct (37.0-47.0) % MCV (80.0-100.0) fL MCH (25.0-34.0) pg MCHC (32.0-36.0) g/dL RDW Std Deviation (36.4-46.3) fL RDW Coeff of Aysha (11.5-14.5) % Plt Count (130-400) K/uL MPV (9.4-12.4) fL Immature Gran % (Auto) % Neut % (Auto) % Lymph % (Auto) % Jenkins % (Auto) % Eos % (Auto) % Baso % (Auto) % Neut # (Auto) (1.40-6.50) K/uL Lymph # (Auto) (1.20-3.40) K/uL Jenkins # (Auto) (0.11-0.59) K/uL Eos # (Auto) (0.00-0.50) K/uL Baso # (Auto) (0.00-0.20) K/uL Immature Gran # (Auto) (0.01-0.20) K/uL Ovalocytes Sodium (136-145) mmol/L Potassium (3.5-5.1) mmol/L Chloride (98-107) mmol/L Carbon Dioxide (21-32) mmol/L Anion Gap (3-11) BUN (6-23) mg/dl Creatinine (0.6-1.2) mg/dl Est Cr Clr Drug Dosing ml/min Est GFR ( Amer) ml/min Est GFR (Non-Af Amer) ml/min BUN/Creatinine Ratio (10-20) Glucose (70-99(Fasting)) mg/dl Estimat Average Glucose mg/dl Hemoglobin A1c (4.5-5.6) % Calcium (8.6-10.3) mg/dl Magnesium (1.7-2.4) mg/dl Iron (35-150) mcg/dl Ferritin (8-388) ng/ml Total Bilirubin (0.2-1.0) mg/dl AST (13-39) U/L ALT (7-52) U/L Alkaline Phosphatase (34-104) U/L Total Creatine Kinase 24 L (26-192) U/L Troponin I High Sens 16.7 H 18.5 H (0-14) pg/ml Total Protein (6.0-8.3) gm/dl Albumin (3.4-5.0) gm/dl Globulin (2.5-4.0) gm/dl Albumin/Globulin Ratio (0.9-2) Lipase (11-82) U/L Vitamin A Vitamin B1 Vitamin B12 (180-914) pg/ml 25-OH Vitamin D Total (30-100) ng/ml TSH 0.689 (0.300-4.500) uIu/ml Urine Color Yellow Urine Appearance Clear (Clear) Urine pH 5.5 (4.5-7.5) Ur Specific [place] > 1.045 H (1.000-1.030) Urine Protein Negative (Negative) Urine Glucose (UA) Negative (Negative) Urine Ketones 1+ H (Negative) Urine Blood Negative (Negative) Urine Nitrite Negative (Negative) Urine Bilirubin Negative (Negative) Urine Urobilinogen Negative (Negative) Ur Leukocyte Esterase Negative (Negative) Zinc 09/08/23 Range/Units 12:08 WBC 8.27 (4.8-10.8) K/ul RBC 5.29 (4.20-5.40) M/uL Hgb 14.0 (12.0-16.0) g/dl Hct 43.0 (37.0-47.0) % MCV 81.3 (80.0-100.0) fL MCH 26.5 (25.0-34.0) pg MCHC 32.6 (32.0-36.0) g/dL RDW Std Deviation 42.5 (36.4-46.3) fL RDW Coeff of Aysha 14.7 H (11.5-14.5) % Plt Count 292 (130-400) K/uL MPV 11.8 (9.4-12.4) fL Immature Gran % (Auto) 0.2 % Neut % (Auto) 59.3 % Lymph % (Auto) 28.2 % Jenkins % (Auto) 10.6 % Eos % (Auto) 1.0 % Baso % (Auto) 0.7 % Neut # (Auto) 4.90 (1.40-6.50) K/uL Lymph # (Auto) 2.33 (1.20-3.40) K/uL Jenkins # (Auto) 0.88 H (0.11-0.59) K/uL Eos # (Auto) 0.08 (0.00-0.50) K/uL Baso # (Auto) 0.06 (0.00-0.20) K/uL Immature Gran # (Auto) 0.02 (0.01-0.20) K/uL Ovalocytes Sodium 136 (136-145) mmol/L Potassium 3.4 L (3.5-5.1) mmol/L Chloride 98 (98-107) mmol/L Carbon Dioxide 29 (21-32) mmol/L Anion Gap 9 (3-11) BUN 17 (6-23) mg/dl Creatinine 0.72 (0.6-1.2) mg/dl Est Cr Clr Drug Dosing 62.5 ml/min Est GFR ( Amer) 110.8 ml/min Est GFR (Non-Af Amer) 95.6 ml/min BUN/Creatinine Ratio 23.6 H (10-20) Glucose 117 H (70-99(Fasting)) mg/dl Estimat Average Glucose mg/dl Hemoglobin A1c (4.5-5.6) % Calcium 9.9 (8.6-10.3) mg/dl Magnesium (1.7-2.4) mg/dl Iron (35-150) mcg/dl Ferritin (8-388) ng/ml Total Bilirubin 0.8 (0.2-1.0) mg/dl AST 15 (13-39) U/L ALT 9 (7-52) U/L Alkaline Phosphatase 67 (34-104) U/L Total Creatine Kinase (26-192) U/L Troponin I High Sens 17.1 H (0-14) pg/ml Total Protein 7.5 (6.0-8.3) gm/dl Albumin 4.7 (3.4-5.0) gm/dl Globulin 2.8 (2.5-4.0) gm/dl Albumin/Globulin Ratio 1.7 (0.9-2) Lipase 16 (11-82) U/L Vitamin A Vitamin B1 Vitamin B12 (180-914) pg/ml 25-OH Vitamin D Total (30-100) ng/ml TSH (0.300-4.500) uIu/ml Urine Color Urine Appearance (Clear) Urine pH (4.5-7.5) Ur Specific [place] (1.000-1.030) Urine Protein (Negative) Urine Glucose (UA) (Negative) Urine Ketones (Negative) Urine Blood (Negative) Urine Nitrite (Negative) Urine Bilirubin (Negative) Urine Urobilinogen (Negative) Ur Leukocyte Esterase (Negative) Zinc
[2023-09-09] MEDS: POTASSIUM CHLORIDE CRTAB 20 MEQ TABCR PO ONE (09:05)
[2023-09-09] MEDS: ONDANSETRON INJ 2 MG/ML 2 ML VIAL IV PRN (09:05)
[2023-09-09] MEDS: SERTRALINE HCL 100 MG TABLET PO SCH (10:06)
[2023-09-09] MEDS: CHOLECALCIFEROL 125 MCG (5,000 UNITS) TAB PO SCH (12:54)
[2023-09-09] MEDS: FOSAPREPITANT DIMEGLUMINE 150 MG in SODIUM CHLORIDE 0.9% 145 ML IV ONE (12:58)
--- NOTE | 2023-09-09 14:58 | Hospitalist Progress Note ---
Date of Service September 09, 2023 Assessment & Plan (1) Abdominal pain: (2) Nausea: (3) History of Maryuri-en-Y gastric bypass: (4) History of hemorrhagic cerebrovascular accident (CVA) with residual deficit: (5) Moderate protein-calorie malnutrition: (6) Unintentional weight loss: (7) Hypokalemia: Plan Patient is a 53 yr Female who has significant past medical history of left basal ganglia hemorrhagic CVA requiring craniectomy in October 2022 with eventual cranioplasty in March 2023, history of Maryuri-en-Y 2020, hx of PE in 2018, and prediabetes who presents to ED secondary to persistent nausea, abdominal pain and significant weight loss. Abdominal pain Persistent Nausea, intermittent diarrhea Moderate protein calorie malnutrition Unintentional weight loss H/O Maryuri n Y gastric Bypass in 2020 --CT ABD:No acute abnormalities and in particular no evidence of bowel obstruction. Diverticulosis without diverticulitis. Status post cholecystectomy. Fat necrosis in the anterior abdominal wall has decreased in size compatible with evolutionary change. -- Avoid NSAIDs Continue IV Protonix Clear liquid diet Continue IV fluids Appreciate GI input Received a dose of MN today Antiemetics as needed Pain control Plan for EGD tomorrow NPO after midnight Dietitian consulted Obtain stool studies developed diarrhea Elevated troponin she did have 1 episode of CP 4 days ago that resolved, her CK is normal Troponin trended down Echo showed no wall motion abnormality Currently denies any chest pain Hypokalemia replace and monitor H/O Left basal ganglia hemorrhagic CVA in 2022 s/p evacuation and craniectomy October 2022 with cranioplasty in march of 2023 Follows [facility] neuro sug, last seen 08/08/23 H/O Hypothyroidism previously on levothyroxine; however stopped taking 1 year ago TSH 0.689 DVT Px: SCDS for now Code Status FULL CODE Admission and Anticipated Discharge Date Admission Date: September 08, 2023 Subjective Patient is seen and examined at bedside Reports ongoing nausea, vomiting, poor oral appetite and abdominal pain Also admits to have weight loss Discussed with family at bedside Reports intermittent diarrhea lately Denies any chest pain, dyspnea, dizzines Review of Systems Review of Systems: All systems reviewed & are unremarkable except as noted in Subjective Physical Exam Physical Exam: Physical Exam: Vitals signs as noted above General Appearance:Thin, frail, no apparent distress Head: normocephalic, Atraumatic Eyes: normal inspection, EOMI Neck: supple, Trachea midline Respiratory/Chest: Normal breath sounds, CTA, No accessory muscle use Cardiovascular: S1, S2, No murmur Abdomen/GI:Soft, generalized tender, Bowel sounds present Extremities/Musculoskeletal:normal inspection, no edema Neurologic/Psych:AAOX3, grossly no focal neurological deficits Skin: normal color, warm Results & Data Results & Data Vital Signs (Past 12 Hours) Vital Signs Temp Pulse Pulse Resp BP Pulse Ox O2 Del Method 09/09/23 11:42 36.3 C L 63 18 151/82 H 100 Room Air 09/09/23 09:35 53 L 09/09/23 07:59 36.3 C L 50 L 19 104/69 98 Room Air 09/09/23 03:03 36.2 C L 51 L 16 94/56 L 99 Room Air Laboratory Results Short CBC 09/09/23 Range/Units 05:50 WBC 4.68 L (4.8-10.8) K/ul Hgb 10.7 L D (12.0-16.0) g/dl Hct 32.5 L (37.0-47.0) % Plt Count 171 (130-400) K/uL BMP 09/09/23 05:50 Sodium 140 Potassium 3.4 L Chloride 107 Carbon Dioxide 28 BUN 12 Creatinine 0.57 L Glucose 82 Calcium 8.4 L Cardiac Enzymes 09/08/23 Range/Units 14:18 Total Creatine Kinase 24 L (26-192) U/L Liver Function 09/09/23 Range/Units 05:50 Total Bilirubin 0.5 (0.2-1.0) mg/dl AST 11 L (13-39) U/L ALT 7 (7-52) U/L Alkaline Phosphatase 47 (34-104) U/L Albumin 3.6 (3.4-5.0) gm/dl Urine 09/08/23 Range/Units 14:51 Urine Color Yellow Urine Appearance Clear (Clear) Urine pH 5.5 (4.5-7.5) Ur Specific [place] > 1.045 H (1.000-1.030) Urine Protein Negative (Negative) Urine Glucose (UA) Negative (Negative) (1) Abdominal pain Abdominal location: generalized Qualified Code(s): R10.84 - Generalized abdominal pain
[2023-09-09] MEDS: MoRPHine SULFATE 2 MG/ML CARP IV PRN (15:21)
[2023-09-09] MEDS: ONDANSETRON INJ 2 MG/ML 2 ML VIAL ONE (18:38)
[2023-09-10] MEDS: SODIUM CHLORIDE 0.9% 1,000 ML IV SCH (08:03)
--- NOTE | 2023-09-10 08:41 | 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 Note ---
Date of Service: September 10, 2023 EGD today post-poned due to a scheduling conflict. We will attempt for EGD 09/11/23. Please keep NPO after 2400 for tentative EGD. We appreciate assistance in the management of any serological abnormality and corrections to include: hemoglobin >7, INR <2, platelets >50,000, potassium levels >3.5 but <5.3, and sodium levels within 5 points of the reference range prior to endoscopic evaluation. Thank you for allowing us to participate in the care of this patient. Please call with any acute changes, questions or concerns. Please see addendum below with additional recommendation from my supervising physician.
[2023-09-10 08:49] LABS: Hematocrit (blood only) 33.2 % (37.0-47.0); Hemoglobin 10.8 g/dl (12.0-16.0); Mean Corpuscular Hemoglobin 26.8 pg (25.0-34.0); Mean Corpuscular Hgb Conc 32.5 g/dL (32.0-36.0); Mean Corpuscular Volume 82.4 fL (80.0-100.0); Mean Platelet Volume 11.1 fL (9.4-12.4); Platelet Count 174 K/uL (130-400); RDW Coefficient of Variation 14.8 % (11.5-14.5); RDW Standard Deviation 44.2 fL (36.4-46.3); Red Blood Count 4.03 M/uL (4.20-5.40); White Blood Count 5.91 K/ul (4.8-10.8)
[2023-09-10 09:04] LABS: Calcium 8.6 mg/dl (8.6-10.3); Creatinine Clr Calc Pharmacy 95.9 ml/min; Est GFR (African American) 128.1 ml/min; Est GFR (Non-African American) 110.5 ml/min; Magnesium 1.7 mg/dl (1.7-2.4); Potassium 3.6 mmol/L (3.5-5.1)
[2023-09-10] MEDS: PROMETHAZINE HCL 6.25 MG in SODIUM CHLORIDE 0.9% 50 ML IV PRN (09:56)
[2023-09-10] MEDS: SERTRALINE HCL 100 MG TABLET PO SCH (10:38)
[2023-09-10] MEDS: ACETAMINOPHEN 1,000 MG/100 ML VIAL IV PRN (14:09)
--- NOTE | 2023-09-10 16:37 | Hospitalist Progress Note ---
Date of Service September 10, 2023 Assessment & Plan (1) Abdominal pain: (2) Nausea: (3) History of Maryuri-en-Y gastric bypass: (4) History of hemorrhagic cerebrovascular accident (CVA) with residual deficit: (5) Moderate protein-calorie malnutrition: (6) Unintentional weight loss: (7) Hypokalemia: Plan Patient is a 53 yr Female who has significant past medical history of left basal ganglia hemorrhagic CVA requiring craniectomy in October 2022 with eventual cranioplasty in March 2023, history of Maryuri-en-Y 2020, hx of PE in 2018, and prediabetes who presents to ED secondary to persistent nausea, abdominal pain and significant weight loss. Abdominal pain Persistent Nausea, intermittent diarrhea Unintentional weight loss H/O Maryuri n Y gastric Bypass in 2020 --CT ABD:No acute abnormalities and in particular no evidence of bowel obstruction. Diverticulosis without diverticulitis. Status post cholecystectomy. Fat necrosis in the anterior abdominal wall has decreased in size compatible with evolutionary change. -- Avoid NSAIDs Continue IV Protonix Continue IV fluids Appreciate GI input Received a dose of Emend on 09/09/23 Antiemetics as needed Pain control Obtain stool studies developed diarrhea Liquid diet for today For after midnight for EGD tomorrow Elevated troponin she did have 1 episode of CP 4 days ago that resolved, her CK is normal Troponin trended down Echo showed no wall motion abnormality Currently denies any chest pain Hypokalemia replace and monitor H/O Left basal ganglia hemorrhagic CVA in 2022 s/p evacuation and craniectomy October 2022 with cranioplasty in march of 2023 Follows [facility] neuro sug, last seen 08/08/23 H/O Hypothyroidism previously on levothyroxine; however stopped taking 1 year ago TSH 0.689 Severe malnutrition BMI 18 Dietitian consulted DVT Px: SCDS for now Code Status FULL CODE Admission and Anticipated Discharge Date Admission Date: September 09, 2023 Subjective Patient is seen and examined at bedside Could not obtain EGD today due to scheduling conflict Nausea slightly better today Reports left lower quadrant abdominal discomfort today No other new complaints Denies any chest pain, dyspnea, dizzines Review of Systems Review of Systems: All systems reviewed & are unremarkable except as noted in Subjective Physical Exam Physical Exam: Physical Exam: Vitals signs as noted above General Appearance:Thin, frail, no apparent distress Head: normocephalic, Atraumatic Eyes: normal inspection, EOMI Neck: supple, Trachea midline Respiratory/Chest: Normal breath sounds, CTA, No accessory muscle use Cardiovascular: S1, S2, No murmur Abdomen/GI:Soft, generalized tender, Bowel sounds present Extremities/Musculoskeletal:normal inspection, no edema Neurologic/Psych:AAOX3, grossly no focal neurological deficits Skin: normal color, warm Results & Data Results & Data Vital Signs (Past 12 Hours) Vital Signs Temp Pulse Pulse Resp BP BP Pulse Ox 09/10/23 15:53 66 09/10/23 15:48 36.6 C 54 L 18 93/57 L 97 09/10/23 11:37 36.9 C 58 L 15 93/55 L 95 09/10/23 10:49 36.7 C 59 L 18 101/65 97 09/10/23 07:34 36.4 C L 65 12 100/66 98 09/10/23 07:12 53 L O2 Del Method 09/10/23 15:53 09/10/23 15:48 Room Air 09/10/23 11:37 Room Air 09/10/23 10:49 Room Air 09/10/23 07:34 Room Air 09/10/23 07:12 Laboratory Results Short CBC 09/10/23 Range/Units 08:19 WBC 5.91 (4.8-10.8) K/ul Hgb 10.8 L (12.0-16.0) g/dl Hct 33.2 L (37.0-47.0) % Plt Count 174 (130-400) K/uL BMP 09/10/23 08:19 Sodium 139 Potassium 3.6 Chloride 107 Carbon Dioxide 26 BUN 6 Creatinine 0.50 L Glucose 89 Calcium 8.6 (1) Abdominal pain Abdominal location: generalized Qualified Code(s): R10.84 - Generalized abdominal pain
--- NOTE | 2023-09-11 07:14 | Hospitalist Progress Note ---
Date of Service September 11, 2023 Assessment & Plan (1) Abdominal pain: (2) Nausea: (3) History of Maryuri-en-Y gastric bypass: (4) History of hemorrhagic cerebrovascular accident (CVA) with residual deficit: (5) Moderate protein-calorie malnutrition: (6) Unintentional weight loss: (7) Hypokalemia: Plan Ms. Marie is a 53 year old woman with prior history of pulmonary emboli (2018), hypothyroidism, gastric bypass 11/2020, intraparenchymal hemorrhage s/p decompressive left hemicraniectomy 11/2022 who was admitted on 09/07 for unintentional weight loss and acute on chronic nausea. EGD 09/10 without any abnormality that would explain degree of nausea/weight loss noted by patient. High suspicion for central etiology of nausea given absent findings on EGD Discussed patient's dietary habits. Reports recent smoothie ingestion with notable diaphoresis, nausea, dizziness thereafter. Patient reports trying to eat mostly protein, therefore smoothie out of character--suspicious for dumping syndrome at that time. Discussed at length dietary modifications, including small, frequent high protein meals. #Persistent nausea c/f Central nausea/vomiting #Prior Maryuri-n-y gastric bypass #H/O Left basal ganglia hemorrhagic CVA in 2022 s/p evacuation and craniectomy October 2022 with cranioplasty in march of 2023 --CT ABD:No acute abnormalities and in particular no evidence of bowel obstruction. Diverticulosis without diverticulitis. Status post cholecystectomy. Fat necrosis in the anterior abdominal wall has decreased in size compatible with evolutionary change. potential for area postrema involvement given severity of stroke last summer Follows [facility] neuro sug, last seen 08/08/23 EGD without any abnormality or anastomotic leaks/ulcerations/etc -Will schedule Phenergan with meals as this has had the most success with nausea -Given high suspicion for central etiology of nausea/vomiting will place prn 2.5mg bid order for olanzipine -Encourage bariatric like diet for patient -Will need to reestablish with Bariatric service #Elevated troponin she did have 1 episode of CP 4 days ago that resolved, her CK is normal Troponin trended down Echo showed no wall motion abnormality Currently denies any chest pain #Hypokalemia replace and monitor #Prior Hypothyroidism previously on levothyroxine; however stopped taking 1 year ago TSH 0.689 #Severe protein calorie malnutrition #Unintentional weight loss BMI 18 Dietitian consulted DVT Px: SCDS for now Code Status FULL CODE Admission and Anticipated Discharge Date Admission Date: September 09, 2023 Subjective NAEGoran, evaluated after EGD Reports having appetite. States that she doesn't "feel good" with zofran but thinks that the Phenergan seems to help tremendously Physical Exam Constitutional: WD/WN, vitals as above Respiratory: normal respiratory effort, lungs clear to auscultation Cardiovascular: RRR, no murmur, no edema Results & Data Results & Data Vital Signs (Past 12 Hours) Vital Signs Temp Pulse Pulse Resp BP Pulse Ox O2 Del Method 09/11/23 04:02 36.5 C 50 L 18 102/66 95 Room Air 09/10/23 23:07 36.8 C 61 18 85/49 L 95 Room Air 09/10/23 21:58 75 09/10/23 19:30 36.8 C 57 L 18 107/68 98 Room Air Laboratory Results Short CBC 09/11/23 Range/Units 09:09 WBC 4.67 L (4.8-10.8) K/ul Hgb 11.4 L (12.0-16.0) g/dl Hct 35.4 L (37.0-47.0) % Plt Count 179 (130-400) K/uL BMP 09/11/23 09:09 Sodium 139 Potassium 3.7 Chloride 105 Carbon Dioxide 28 BUN 4 L Creatinine 0.53 L Glucose 92 Calcium 8.7 Medications Administered Home Medications Medication Instructions Recorded Confirmed Last Taken lorazepam 1 mg tablet 1 mg PO TID PRN Anxiety 09/08/23 09/08/23 Unknown ondansetron HCl 4 mg tablet 4 mg PO Q6H PRN Nausea 09/08/23 09/08/23 Unknown sertraline 100 mg tablet 200 mg PO DAILY 09/08/23 09/08/23 Unknown Active Medications Generic Name Dose Route Start Last Admin Trade Name Freq PRN Reason Stop Dose Admin Acetaminophen 650 mg 09/08/23 17:31 09/09/23 07:44 Acetaminophen 325 Mg Tab PO 10/08/23 17:30 650 mg Q4H PRN Administration Pain or Fever Pantoprazole Sodium 40 mg/ 10 mls @ 5 mls/min 09/08/23 21:00 09/11/23 08:34 Syringe IV 10/08/23 20:59 5 mls/min BID CASANDRA Administration Acetaminophen 1,000 mg in 100 mls @ 400 mls/hr 09/10/23 13:58 09/11/23 00:02 Ofirmev IV 09/13/23 13:57 Infused Q8H PRN Infusion Pain or Fever Morphine Sulfate 2 mg 09/09/23 14:58 09/11/23 09:37 Morphine Sulfate 2 Mg/Ml Carp IV 09/23/23 14:57 2 mg Q4H PRN Administration Severe Pain (Scale 7, 8, 9,10) Sertraline HCl 100 mg 09/10/23 09:00 09/11/23 08:34 Sertraline Hcl 100 Mg Tablet PO 10/10/23 08:59 Not Given DAILY CASANDRA Sucralfate 1 gm 09/11/23 13:00 09/11/23 13:58 Sucralfate 1 Gm/10 Ml Udc PO 10/11/23 12:59 1 gm QID CASANDRA Administration Vitamin D 125 mcg 09/09/23 10:00 09/11/23 08:34 Cholecalciferol 125 Mcg (5,000 Units) Tab PO 10/09/23 09:59 Not Given QAM CASANDRA (1) Abdominal pain Abdominal location: generalized Qualified Code(s): R10.84 - Generalized abdominal pain
[2023-09-11 09:33] LABS: Hematocrit (blood only) 35.4 % (37.0-47.0); Hemoglobin 11.4 g/dl (12.0-16.0); Mean Corpuscular Hemoglobin 26.7 pg (25.0-34.0); Mean Corpuscular Hgb Conc 32.2 g/dL (32.0-36.0); Mean Corpuscular Volume 82.9 fL (80.0-100.0); Mean Platelet Volume 11.4 fL (9.4-12.4); Platelet Count 179 K/uL (130-400); RDW Coefficient of Variation 14.9 % (11.5-14.5); RDW Standard Deviation 44.9 fL (36.4-46.3); Red Blood Count 4.27 M/uL (4.20-5.40); White Blood Count 4.67 K/ul (4.8-10.8)
[2023-09-11 09:57] LABS: BUN Creatinine Ratio 7.5 (10-20); Calcium 8.7 mg/dl (8.6-10.3); Creatinine Clr Calc Pharmacy 90.1 ml/min; Est GFR (African American) 125.6 ml/min; Est GFR (Non-African American) 108.4 ml/min; Magnesium 1.7 mg/dl (1.7-2.4); Potassium 3.7 mmol/L (3.5-5.1)
--- NOTE | 2023-09-11 10:56 | Anesthesiology Consultation ---
Date of Service September 11, 2023 History Surgery Operation Date: 09/10/23 16:30 Proposed Procedures p Esophagogastroduodenoscopy Dr. Neisha Driver MD Operation Date: 09/11/23 16:30 Proposed Procedures p Esophagogastroduodenoscopy Dr. Neisha Driver MD Height/Weight Height: 5 ft 2 in Weight: 46.5 kg Allergies Allergy/AdvReac Type Severity Reaction Status Date / Time No Known Allergies Allergy Verified 09/11/23 10:27 Medications Home Medications Medication Instructions Recorded Confirmed Last Taken lorazepam 1 mg tablet 1 mg PO TID PRN Anxiety 09/08/23 09/08/23 Unknown ondansetron HCl 4 mg tablet 4 mg PO Q6H PRN Nausea 09/08/23 09/08/23 Unknown sertraline 100 mg tablet 200 mg PO DAILY 09/08/23 09/08/23 Unknown Active Medications Generic Name Dose Route Start Last Admin Trade Name Freq PRN Reason Stop Dose Admin Acetaminophen 650 mg 09/08/23 17:31 09/09/23 07:44 Acetaminophen 325 Mg Tab PO 10/08/23 17:30 650 mg Q4H PRN Administration Pain or Fever Pantoprazole Sodium 40 mg/ 10 mls @ 5 mls/min 09/08/23 21:00 09/11/23 08:34 Syringe IV 10/08/23 20:59 5 mls/min BID CASANDRA Administration Promethazine HCl 6.25 mg/ 50.25 mls @ 201 mls/hr 09/09/23 14:58 09/11/23 09:34 Sodium Chloride IV 10/09/23 14:57 Infused Q8H PRN Infusion Nausea And Vomiting Acetaminophen 1,000 mg in 100 mls @ 400 mls/hr 09/10/23 13:58 09/11/23 00:02 Ofirmev IV 09/13/23 13:57 Infused Q8H PRN Infusion Pain or Fever Morphine Sulfate 2 mg 09/09/23 14:58 09/11/23 09:37 Morphine Sulfate 2 Mg/Ml Carp IV 09/23/23 14:57 2 mg Q4H PRN Administration Severe Pain (Scale 7, 8, 9,10) Ondansetron HCl 4 mg 09/09/23 07:55 09/09/23 15:21 Ondansetron Inj 2 Mg/Ml 2 Ml Vial IV 10/09/23 07:54 4 mg Q6H PRN Administration Nausea And Vomiting Sertraline HCl 100 mg 09/10/23 09:00 09/11/23 08:34 Sertraline Hcl 100 Mg Tablet PO 10/10/23 08:59 Not Given DAILY CASANDRA Vitamin D 125 mcg 09/09/23 10:00 09/11/23 08:34 Cholecalciferol 125 Mcg (5,000 Units) Tab PO 10/09/23 09:59 Not Given QAM CASANDRA NPO Date Last Intake of Fluids: 09/10/23 Time Last Intake of Fluids: 23:00 Date Last Intake of Solids: 09/07/23 Past Medical History Medical History (Updated 09/08/23 @ 15:29 by Tiara Elizabeth PA-C) Nausea Hemorrhagic stroke Anxiety Pulmonary embolism Endometriosis ESTEBAN (obstructive sleep apnea) GERD (gastroesophageal reflux disease) Depression Past Surgical History Surgical History (Updated 09/08/23 @ 15:19 by Tiara Elizabeth PA-C) H/O craniotomy H/O wisdom tooth extraction History of partial colectomy History of hysterectomy Hx of cholecystectomy History of appendectomy Social History Smoking Status: Current every day smoker Hx Substance Use: No Physical Exam Vital Signs Last Vital Signs Temp 37.1 C 09/11/23 10:33 Pulse 54 L 09/11/23 10:33 Resp 18 09/11/23 10:33 BP 121/69 09/11/23 10:33 Pulse Ox 98 09/11/23 10:33 O2 Del Method Room Air 09/11/23 10:33 Testing Laboratory Results 09/11/23 09:09 09/11/23 09:09 Hemoglobin A1c 5.7 % (4.5-5.6) H 09/09/23 05:50 Urine Color Yellow 09/08/23 14:51 Urine Appearance Clear (Clear) 09/08/23 14:51 Urine pH 5.5 (4.5-7.5) 09/08/23 14:51 Ur Specific [place] > 1.045 (1.000-1.030) H 09/08/23 14:51 Urine Protein Negative (Negative) 09/08/23 14:51 Urine Glucose (UA) Negative (Negative) 09/08/23 14:51 Urine Ketones 1+ (Negative) H 09/08/23 14:51 Urine Nitrite Negative (Negative) 09/08/23 14:51 Ur Leukocyte Esterase Negative (Negative) 09/08/23 14:51
--- NOTE | 2023-09-11 11:11 | History & Physical Bridge Note ---
Date of Service September 11, 2023 History & Physical Bridge Note I have examined the patient, reviewed the History & Physical and in the interval since the performance of the History & Physical I have noted the following changes of clinical significance: no changes noted Supervising Physician Co-Signing Physician Notes EGD for evaluation of abdominal pain (09/07) and nausea.
--- NOTE | 2023-09-11 11:30 | GI REPORT ---
Patient Name: Aleah Marie Procedure Date: 09/11/2023 11:00 AM Date of : 1970 Admit Type: Inpatient Age: 53 Gender: Female Attending MD: Rosa Driver M.d., Procedure: Upper GI endoscopy Providers: Rosa Driver M.d. Referring MD: Zulay Askew Md Indications: Epigastric abdominal pain Medicines: See the Anesthesia note for documentation of the administered medications Complications: No immediate complications. Estimated Blood Loss: Estimated blood loss: none. Procedure: Pre-Anesthesia Assessment: - Patient identification and proposed procedure were verified prior to the procedure by the physician, the nurse and the anesthesiologist. The procedure was verified in the pre-procedure area. - Prior to the procedure, a History and Physical was performed, and patient medications, allergies and sensitivities were reviewed. The patient's tolerance of previous anesthesia was reviewed. - The risks and benefits of the procedure and the sedation options and risks were discussed with the patient. All questions were answered and informed consent was obtained. After obtaining informed consent, the endoscope was passed under direct vision. Throughout the procedure, the patient's blood pressure, pulse, and oxygen saturations were monitored continuously. The Endoscope was introduced through the mouth, and advanced to the jejunum. The upper GI endoscopy was accomplished without difficulty. The patient tolerated the procedure well. Findings: The examined esophagus appeared normal. The Z-line appeared regular. Evidence of a Maryuri-en-Y gastrojejunostomy was found. The gastrojejunal anastomosis was characterized by healthy appearing mucosa. Biopsies were taken with a cold forceps for Helicobacter pylori testing. The pathology specimen was placed into Bottle A. Verification of patient identification for the specimen was done by the physician and nurse using the patient's name and medical record number. The examined jejunum appeared normal. Impression: - Normal esophagus. - Z-line regular. - Maryuri-en-Y gastrojejunostomy with gastrojejunal anastomosis characterized by healthy appearing mucosa. Biopsied. - Normal examined jejunum. Recommendation: - Await pathology results. Taqueria Cain M.d. 09/11/2023 11:29:51 AM This report has been signed electronically. Note Initiated On: 09/11/2023 11:00 AM Number of Addenda: 0 I attest to the content of the Intraoperative Record and orders documented therein, exceptions below {[id number]}
--- NOTE | 2023-09-11 11:59 | 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 Note ---
Date of Service: September 11, 2023 EGD done with normal anatomy, no esophagitis/gastritis/small bowel inflammation/ulceration noted Biopsies done of her gastric pouch. Would consider carafate liquid and ppi daily and antinausea meds. Consider central causes for nausea related to her prior stroke.
[2023-09-11] MEDS ORDERED: PROMETHAZINE HCL 25 MG TAB PO PRN (13:06)
[2023-09-11] MEDS: SUCRALFATE 1 GM/10 ML UDC PO SCH (13:58)
[2023-09-11 14:34] LABS: Zinc 65 mcg/dL (60-130)
[2023-09-11] MEDS ORDERED: METOCLOPRAMIDE HCL 10 MG TABLET PO SCH (16:30)
--- NOTE | 2023-09-11 16:33 | Anesthesiology Progress Note ---
Date of Service September 11, 2023 Anesthesia Post Procedure Vital Signs Vital Signs: Temp Pulse Pulse Resp BP BP Pulse Ox 09/11/23 15:29 36.7 C 61 18 103/66 97 09/11/23 12:04 56 L 16 121/66 98 09/11/23 11:49 55 L 16 107/69 98 09/11/23 11:34 62 18 93/62 L 121/69 98 09/11/23 10:33 37.1 C 54 L 18 121/69 121/69 98 09/11/23 07:47 36.5 C 50 L 18 110/76 96 09/11/23 07:20 65 09/11/23 04:02 36.5 C 50 L 18 102/66 95 09/10/23 23:07 36.8 C 61 18 85/49 L 95 09/10/23 21:58 75 09/10/23 19:30 36.8 C 57 L 18 107/68 98 O2 Del Method 09/11/23 15:29 Room Air 09/11/23 12:04 Room Air 09/11/23 11:49 Room Air 09/11/23 11:34 Room Air 09/11/23 10:33 Room Air 09/11/23 07:47 Room Air 09/11/23 07:20 09/11/23 04:02 Room Air 09/10/23 23:07 Room Air 09/10/23 21:58 09/10/23 19:30 Room Air Pain Intensity Abdomen: Pain Intensity: 2 Transfer of Care Handoff Completed per policy Notes Mental Status: alert / awake / arousable and participated in evaluation Nausea / Vomiting: adequately controlled Pain: adequately controlled Airway Patency, RR, SpO2: stable & adequate BP & HR: stable & adequate Hydration State: stable & adequate Anesthetic Complications: no major complications apparent and Pt Satisfied with anesthetic care
[2023-09-11] MEDS: PROMETHAZINE HCL 25 MG TAB PO PRN (17:23)
[2023-09-11] MEDS: OLANZAPINE 2.5 MG TAB PO PRN (18:39)
[2023-09-11] MEDS: PROPOFOL IV EMULSION 10 MG/ML 20 ML VIAL IV ONE (21:10)
[2023-09-11] MEDS: LIDOCAINE 2% 2 ML VIAL/AMP(20MG/ML) INFIL ONE (21:10)
[2023-09-12 07:07] LABS: Hemoglobin 11.3 g/dl (12.0-16.0); Mean Corpuscular Hemoglobin 26.8 pg (25.0-34.0); Mean Corpuscular Hgb Conc 32.3 g/dL (32.0-36.0); Mean Corpuscular Volume 82.9 fL (80.0-100.0); Mean Platelet Volume 12.1 fL (9.4-12.4); Platelet Count 192 K/uL (130-400); RDW Coefficient of Variation 14.9 % (11.5-14.5); RDW Standard Deviation 44.8 fL (36.4-46.3); Red Blood Count 4.22 M/uL (4.20-5.40); White Blood Count 5.81 K/ul (4.8-10.8)
[2023-09-12 07:18] LABS: BUN Creatinine Ratio 12.5 (10-20); Calcium 8.9 mg/dl (8.6-10.3); Creatinine Clr Calc Pharmacy 76.4 ml/min; Est GFR (African American) 118.1 ml/min; Est GFR (Non-African American) 101.9 ml/min; Magnesium 1.8 mg/dl (1.7-2.4); Potassium 3.5 mmol/L (3.5-5.1)
[2023-09-12] MEDS: OLANZapine ZYDIS 5 MG ORALLY DIS. TAB PO SCH (11:11)
--- NOTE | 2023-09-12 15:02 | Hospitalist Progress Note ---
Date of Service September 12, 2023 Assessment & Plan (1) Abdominal pain: (2) Nausea: (3) History of Maryuri-en-Y gastric bypass: (4) History of hemorrhagic cerebrovascular accident (CVA) with residual deficit: (5) Moderate protein-calorie malnutrition: (6) Unintentional weight loss: (7) Hypokalemia: Plan Ms. Marie is a 53 year old woman with prior history of pulmonary emboli (2018), hypothyroidism, gastric bypass 11/2020, intraparenchymal hemorrhage s/p decompressive left hemicraniectomy 11/2022 who was admitted on 09/07 for unintentional weight loss and acute on chronic nausea. EGD 09/10 without any abnormality that would explain degree of nausea/weight loss noted by patient. High suspicion for central etiology of nausea given absent findings on EGD Discussed patient's dietary habits. Reports recent smoothie ingestion with notable diaphoresis, nausea, dizziness thereafter. Patient reports trying to eat mostly protein, therefore smoothie out of character--suspicious for dumping syndrome at that time. Discussed at length dietary modifications, including small, frequent high protein meals. Patient with nausea ongoing and trailing various regimens to help. #Persistent nausea c/f Central nausea/vomiting #Chronic gastritis #Prior Maryuri-n-y gastric bypass #H/O Left basal ganglia hemorrhagic CVA in 2022 s/p evacuation and craniectomy October 2022 with cranioplasty in March of 2023 --CT ABD:No acute abnormalities and in particular no evidence of bowel obstruction. Diverticulosis without diverticulitis. Status post cholecystectomy. Fat necrosis in the anterior abdominal wall has decreased in size compatible with evolutionary change. potential for area postrema involvement given severity of stroke last summer Follows [facility] neuro sug, last seen 08/08/23 EGD without any abnormality or anastomotic leaks/ulcerations/etc -Continue scheduled Phenergan with meals as this has had the most success with nausea -Given high suspicion for central etiology of nausea/vomiting will trial scheduled olanzipine 5mg -Encourage bariatric like diet for patient -Continue PPI BID, continue carafate -Will need to reestablish with Bariatric service #Elevated troponin *resolved she did have 1 episode of CP 4 days ago that resolved, her CK is normal Troponin trended down Echo showed no wall motion abnormality Currently denies any chest pain #Hypokalemia replace and monitor #Prior Hypothyroidism previously on levothyroxine; however stopped taking 1 year ago TSH 0.689 #Severe protein calorie malnutrition #Unintentional weight loss BMI 18 Dietitian consulted DVT Px: SCDS for now Code Status FULL CODE Admission and Anticipated Discharge Date Admission Date: September 09, 2023 Subjective Patient states the Phenergan helps her nausea overall. She notes that she still feels generally "sick to [her] stomach" She denies any vomiting or other acute symptoms at this time Physical Exam Constitutional: WD/WN, vitals as above Cardiovascular: RRR, no murmur, no edema Chest (Breasts): normal inspection/palpation of breasts Gastrointestinal (Abdomen): normal bowel sounds, soft, nontender, no hepatosplenomegaly Results & Data Results & Data Vital Signs (Past 12 Hours) Vital Signs Temp Pulse Pulse Resp BP Pulse Ox O2 Del Method 09/12/23 11:18 36.5 C 61 18 104/67 93 Room Air 09/12/23 08:11 36.3 C L 81 18 105/66 93 Room Air 09/12/23 07:08 52 L 09/12/23 03:04 36.3 C L 50 L 16 101/65 95 Room Air Laboratory Results Short CBC 09/12/23 Range/Units 05:39 WBC 5.81 (4.8-10.8) K/ul Hgb 11.3 L (12.0-16.0) g/dl Hct 35.0 L (37.0-47.0) % Plt Count 192 (130-400) K/uL BMP 09/12/23 05:39 Sodium 141 Potassium 3.5 Chloride 106 Carbon Dioxide 30 BUN 8 Creatinine 0.64 Glucose 83 Calcium 8.9 Medications Administered Home Medications Medication Instructions Recorded Confirmed Last Taken lorazepam 1 mg tablet 1 mg PO TID PRN Anxiety 09/08/23 09/08/23 Unknown ondansetron HCl 4 mg tablet 4 mg PO Q6H PRN Nausea 09/08/23 09/08/23 Unknown sertraline 100 mg tablet 200 mg PO DAILY 09/08/23 09/08/23 Unknown cholecalciferol (vitamin D3) 125 125 mcg PO QAM 30 days #30 tabs 09/12/23 Unknown mcg (5,000 unit) tablet Active Medications Generic Name Dose Route Start Last Admin Trade Name Freq PRN Reason Stop Dose Admin Acetaminophen 650 mg 09/08/23 17:31 09/09/23 07:44 Acetaminophen 325 Mg Tab PO 10/08/23 17:30 650 mg Q4H PRN Administration Pain or Fever Pantoprazole Sodium 40 mg/ 10 mls @ 5 mls/min 09/08/23 21:00 09/12/23 08:51 Syringe IV 10/08/23 20:59 5 mls/min BID CASANDRA Administration Acetaminophen 1,000 mg in 100 mls @ 400 mls/hr 09/10/23 13:58 09/12/23 03:02 Ofirmev IV 09/13/23 13:57 Infused Q8H PRN Infusion Pain or Fever Morphine Sulfate 2 mg 09/09/23 14:58 09/12/23 13:35 Morphine Sulfate 2 Mg/Ml Carp IV 09/23/23 14:57 2 mg Q4H PRN Administration Severe Pain (Scale 7, 8, 9,10) Olanzapine 2.5 mg 09/11/23 13:09 09/11/23 18:39 Olanzapine 2.5 Mg Tab PO 10/11/23 20:59 2.5 mg BID PRN Administration refractory nasuea after phener Olanzapine 5 mg 09/12/23 10:45 09/12/23 11:11 Olanzapine Zydis 5 Mg Orally Dis. Tab PO 10/12/23 10:44 5 mg BID CASANDRA Administration Promethazine HCl 25 mg 09/11/23 14:53 09/12/23 12:06 Promethazine Hcl 25 Mg Tab PO 10/11/23 13:05 25 mg ACHS PRN Administration Nausea And Vomiting Sertraline HCl 100 mg 09/10/23 09:00 09/12/23 08:52 Sertraline Hcl 100 Mg Tablet PO 10/10/23 08:59 Not Given DAILY CASANDRA Sucralfate 1 gm 09/11/23 13:00 09/12/23 12:06 Sucralfate 1 Gm/10 Ml Udc PO 10/11/23 12:59 1 gm QID CASANDRA Administration Vitamin D 125 mcg 09/09/23 10:00 09/12/23 08:51 Cholecalciferol 125 Mcg (5,000 Units) Tab PO 10/09/23 09:59 125 mcg QAM CASANDRA Administration (1) Abdominal pain Abdominal location: generalized Qualified Code(s): R10.84 - Generalized abdominal pain
[2023-09-12] MEDS: LIDOCAINE 5% 1 PATCH TD STA (16:36)
[2023-09-13 07:06] LABS: Hematocrit (blood only) 34.3 % (37.0-47.0); Hemoglobin 11.1 g/dl (12.0-16.0); Mean Corpuscular Hemoglobin 26.9 pg (25.0-34.0); Mean Corpuscular Hgb Conc 32.4 g/dL (32.0-36.0); Mean Corpuscular Volume 83.1 fL (80.0-100.0); Mean Platelet Volume 11.9 fL (9.4-12.4); Platelet Count 187 K/uL (130-400); RDW Standard Deviation 45.4 fL (36.4-46.3); Red Blood Count 4.13 M/uL (4.20-5.40); White Blood Count 6.13 K/ul (4.8-10.8)
[2023-09-13 07:40] LABS: Calcium 8.8 mg/dl (8.6-10.3); Creatinine Clr Calc Pharmacy 81.7 ml/min; Est GFR (African American) 118.7 ml/min; Est GFR (Non-African American) 102.4 ml/min; Magnesium 1.9 mg/dl (1.7-2.4); Phosphorus 3.4 mg/dl (2.5-4.9); Potassium 3.4 mmol/L (3.5-5.1)
[2023-09-13] MEDS: LIDOCAINE 5% 1 PATCH TD SCH (11:21)
--- NOTE | 2023-09-13 11:47 | Surgery Consultation ---
Date of Consultation September 13, 2023 Assessment & Plan (1) Abdominal pain: chart/imaging reviewed. etiology of the pain and nausea unclear. the nausea might be central in nature. appears to be controlled adequately with zofran. certainly no indications for surgical intervention. I would recommend she f/u w ith her bariatric surgeon in [place] to potentially discuss dx laparoscopy should the symptoms persist ( eval for adhesions, internal hernia, anastomotic stricture etc...). she is tolerating diet and pain is manageable. recommend d/c with f/u with her bariatric team. please call us if any questions or concerns. (2) Nausea: (3) History of Maryuri-en-Y gastric bypass: History of Present Illness Attending Physician: Zulay Askew MD History of Present Illness requested to see patient for abdominal pain and nausea. s/p gastric bypass in [place] approx 3 years ago. lost approx 70 lbs and apparently was doing well until she had a cva approx 1 year ago... she has since been dealing with nausea without know etiology as well as now having LLQ pain. CT negative EGD negative. she does struggle with constipation . Allergies Allergy/AdvReac Type Severity Reaction Status Date / Time No Known Allergies Allergy Verified 09/11/23 10:27 Home Medications Medication Instructions Recorded Confirmed Type lorazepam 1 mg tablet 1 mg PO TID PRN Anxiety 09/08/23 09/08/23 History ondansetron HCl 4 mg tablet 4 mg PO Q6H PRN Nausea 09/08/23 09/08/23 History sertraline 100 mg tablet 200 mg PO DAILY 09/08/23 09/08/23 History cholecalciferol (vitamin D3) 125 125 mcg PO QAM 30 days #30 tabs 09/12/23 Rx mcg (5,000 unit) tablet Patient History Medical History (Updated 09/08/23 @ 15:29 by Tiara Elizabeth PA-C) Nausea Hemorrhagic stroke Anxiety Pulmonary embolism Endometriosis ESTEBAN (obstructive sleep apnea) GERD (gastroesophageal reflux disease) Depression Surgical History (Updated 09/08/23 @ 15:19 by Tiara Elizabeth PA-C) H/O craniotomy H/O wisdom tooth extraction History of partial colectomy History of hysterectomy Hx of cholecystectomy History of appendectomy Social History Smoking Status: Current every day smoker Tobacco Type: E-cigarettes / Vaping Hx Substance Use: No Preferred Language: Spanish 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 Ability: Effective 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: No Beliefs That Will Affect Care: None Current Living Situation: Spouse Feels Safe at Home: Yes Safety Concerns: Feels Safe At This Time Assistive Devices: None Review of Systems Review of Systems: All systems reviewed & are unremarkable except as noted in HPI & below Physical Exam Constitutional: WD/WN, vitals as above no acute distress and not ill appearing Eyes: PERRL, conjunctivae normal, anicteric sclerae EOM intact bilaterally ENMT: external ear and nose normal, oropharynx normal Ears: no hearing impairment Neck: trachea midline, no thyromegaly Respiratory: normal respiratory effort; no respiratory distress and does not use accessory muscles Cardiovascular: Rate/Rhythm: regular rate and regular rhythm Gastrointestinal (Abdomen): soft. +LLQ ttp. no g/r/r. no palpable abnormalities. Skin: no rashes, warm and dry Psychiatric: Orientation: alert, oriented x 3 and cooperative Results & Data Vital Signs (Past 12 Hours) Vital Signs Temp Pulse Pulse Resp BP BP Pulse Ox 09/13/23 09:32 36.6 C 78 16 92/60 L 97 09/13/23 08:37 09/13/23 07:53 36.5 C 81 20 91/59 L 94 09/13/23 07:20 54 L 09/13/23 04:59 64 09/13/23 02:34 36.4 C L 57 L 16 103/67 98 O2 Del Method 09/13/23 09:32 Room Air 09/13/23 08:37 Room Air 09/13/23 07:53 Room Air 09/13/23 07:20 09/13/23 04:59 09/13/23 02:34 Room Air PG Care Time/CCT Total # of Minutes Spent Total Time Spent with Patient: Total time spent is greater than 50% in coordination of care (as documented) at patient's floor/unit and/or counseling patient: Coding Level of Care Code 02003 IN/OBS CONSULT LVL 3,45M Diagnoses Abdominal pain R10.84 Abdominal location: generalized Nausea R11.0 History of Maryuri-en-Y gastric bypass Z98.84 (1) Abdominal pain Abdominal location: generalized Qualified Code(s): R10.84 - Generalized abdominal pain
[2023-09-13] MEDS: CYCLOBENZAPRINE HCL 5 MG TAB PO SCH (12:40)
--- NOTE | 2023-09-13 12:47 | XRay Report ---
KUB HISTORY: Acute generalized abdominal pain abdominal pain COMPARISON: CT 09/08/2023 FINDINGS: Nonobstructive bowel gas pattern. [id number] fecal retention with air-filled loops of large bowel redemonstrated. Cholecystectomy. Left abdominal surgical suture material from prior Maryuri -en-Y gastric bypass with partial sigmoid colon resection. No renal calculi. No ureteral calculi. No pneumoperitoneum or pneumatosis. No fracture. IMPRESSION: Nonobstructive bowel gas pattern. ACT 112: Negative or not required by law. The above report was generated using voice recognition software. It may contain grammatical, syntax o r spelling errors. Electronically signed by: Payam Rodríguez M.D. 09/13/2023 12:45 PM
[2023-09-13] MEDS: bisacodyL 10 MG SUPP PR STA (13:39)
--- NOTE | 2023-09-13 14:54 | Discharge Summary ---
Discharge Summary Date of Service September 13, 2023 Notes For Next Care Provider Medication Changes From Visit -Promethazine 25mg with meals as needed for nausea -Olanzapine 5mg daily for refractory nausea/weight gain/mood -Carafate QID x 7 more days Admission HPI Per Admitting Provider This is a 53 yr old F who has significant past medical history of left basal ganglia hemorrhagic CVA requiring craniectomy in October 2022 with eventual cranioplasty in March 2023, history of Maryuri-en-Y in 2020, hx of PE in 2017, and prediabetes who presents to ED secondary to persistent nausea, abdominal pain and significant weight loss. She states she has had hx of maryuri en y 3 years ago. She did well for 2 years until she had a hemorrhagic CVA requiring craniotomy. Since then she has been suffering from chronic nausea. When she eats she gets significantly nauseated and can't eat. She has lost a significant amount of weight and is now under 100 lbs. She states she can only eat 4 oz at time. "I can't do it any longer." She does occasionally vomit, but its liquid. She had an episode of diarrhea this morning, but she typically has intermittent loose stools. She states nothing tastes the same and has no appetite. She has been taking ibuprofen and tylenol on a regular basis for the last 3 months due to her abdominal pain. She does have abdominal pain in LLQ and suprapubic region. She denies f/c/s, chest pain, sob, hematemesis, rashes, dysuria, increased urg/freq with urination. This past Saturday she ate something and her said she turned purple. Since then she went down hill. she experience an episode of chest pain when she was lying flat. She described it as a chest tightness but this has since resolved and never recurred. She last followed up with neurosurgery on with [facility]. She has since been lost to follow up with nutrition and weight management. Admission Exam Per Admitting Provider GENERAL APPEARANCE: AxOx4, frail appearing woman HEENT: NC, left temporal surgical deformity from craniectomy well healed surgical incisions MMM. EOMI, clear conjunctiva, oropharynx clear. NECK: Supple without lymphadenopathy. No stiffness or restricted ROM. HEART: Normal rate and regular rhythm, normal S1/S1, no m/r/g LUNGS: CTAB, moving air well. No crackles or wheezes are heard. ABDOMEN: Soft, nontender, nondistended with good bowel sounds heard. Tenderness with notably deep palpation mostly in LLQ guided by patient BACK: No CVAT, no obvious deformity. EXTREMITIES: Without cyanosis, clubbing or edema. NEUROLOGICAL: Grossly nonfocal. Alert and oriented, moving all 4 extremities. CN not formally tested but appear grossly intact. Skin: Warm and dry without any rash. Principal Dx & Hospital Course #1 = Principal Diagnosis (1) Abdominal pain: (2) Nausea: (3) History of Maryuri-en-Y gastric bypass: (4) History of hemorrhagic cerebrovascular accident (CVA) with residual deficit: (5) Moderate protein-calorie malnutrition: (6) Unintentional weight loss: (7) Hypokalemia: Plan Ms. Marie is a 53 year old woman with prior history of pulmonary emboli (2017), hypothyroidism, gastric bypass 11/2020, intraparenchymal hemorrhage s/p decompressive left hemicraniectomy 11/2022 who was admitted on 09/07 for unintentional weight loss and acute on chronic nausea. EGD 09/10 without any abnormality that would explain degree of nausea/weight loss noted by patient. High suspicion for central etiology of nausea given absent findings on EGD Discussed patient's dietary habits. Reports recent smoothie ingestion with notable diaphoresis, nausea, dizziness thereafter. Patient reports trying to eat mostly protein, therefore smoothie out of character--suspicious for dumping syndrome at that time. Discussed at length dietary modifications, including small, frequent high protein meals. Patient with nausea ongoing and trailing various regimens to help. Patient noted improvement in appetite with standing Phenergan, olanzapine and the recommendation of small protein based meals On day of discharge, patient with notable abdominal pain. Patient with superficial tenderness over area of fat necrosis, but encouraged XR to assess. Noted large stool burden--which was quickly managed with suppository and large BM on day of discharge with subsequent relief of abdominal pain. General surgery was consulted for area of necrosis if excision is warrant ed--which it is not. After bowel movement, patient tolerating more food intake than prior days. Reports "blunting" of baseline nausea sensations. Plan for discharge with close neurology and PCP follow up, as well as coordinating follow up with Bariatric physicians. Information regarding dumping syndrome given to patient as well. #Persistent nausea c/f Central nausea/vomiting #Chronic gastritis #Prior Maryuri-n-y gastric bypass #H/O Left basal ganglia hemorrhagic CVA in 2022 s/p evacuation and craniectomy October 2022 with cranioplasty in March of 2023 --CT ABD:No acute abnormalities and in particular no evidence of bowel obstruction. Diverticulosis without diverticulitis. Status post cholecystectomy. Fat necrosis in the anterior abdominal wall has decreased in size compatible with evolutionary change. potential for area postrema involvement given severity of stroke last summer Follows [facility], last seen 08/08/23 EGD without any abnormality or anastomotic leaks/ulcerations/etc -Continue scheduled Phenergan with meals as this has had the most success with nausea -Given high suspicion for central etiology of nausea/vomiting, continue scheduled olanzapine 5mg -Encourage bariatric like diet for patient -Continue PPI daily, continue carafate for 7 more days -Will need to reestablish with Bariatric service #Elevated troponin *resolved she did have 1 episode of CP 4 days ago that resolved, her CK is normal Troponin trended down Echo showed no wall motion abnormality Currently denies any chest pain #Hypokalemia replace and monitor #Prior Hypothyroidism previously on levothyroxine; however stopped taking 1 year ago TSH 0.689 #Severe protein calorie malnutrition #Unintentional weight loss BMI 18 Dietitian consulted, encourage small meals Discharge Exam Constitutional WD/WN, vitals as above Respiratory normal respiratory effort, lungs clear to auscultation Cardiovascular RRR, no murmur, no edema Gastrointestinal (Abdomen) soft abdomen after stool passing Updated Medication List Medication Instructions Recorded Confirmed Type lorazepam 1 mg tablet 1 mg PO TID PRN Anxiety 09/08/23 09/08/23 History sertraline 100 mg tablet 200 mg PO DAILY 09/08/23 09/08/23 History cholecalciferol (vitamin D3) 125 125 mcg PO QAM 30 days #30 tabs 09/12/23 Rx mcg (5,000 unit) tablet lidocaine 5 % topical patch 1 patch transdermal QAM 30 days 09/13/23 Rx #30 ea olanzapine 5 mg disintegrating 5 mg PO DAILY 30 days #30 tabs 09/13/23 Rx tablet pantoprazole 40 mg tablet,delayed 40 mg PO DAILY #30 tabs 09/13/23 Rx release promethazine 25 mg tablet 25 mg PO ACHS PRN nausea #180 tabs 09/13/23 Rx sucralfate 100 mg/mL oral 1 g (10 mL) PO QID 7 days #280 mL 09/13/23 Rx suspension Hospital Stay Data Consultations 09/08/23 14:19 Consult Hospitalist Stat 09/08/23 14:52 Consult Gastroenterology Routine 09/08/23 15:14 ED Decision to Admit Stat 09/13/23 10:14 Consult General Surgery Routine Procedures Performed Operation Date: 09/11/23 16:30 Actual Procedures p EGD Biopsy Cytology - Rosa Driver MD Diagnostic Imagining Performed 09/08/23 12:23 CT abd pelvis IV con only Stat 09/08/23 13:15 CT head/brain wo con Stat Pending Results Patient Have Any Pending Studies at Discharge: No Discharge Instructions Given to Patient (Per Discharging Provider) You were admitted for malnutrition related to persistent nausea. You underwent a scope by the Global Engineering Manager who noted that you exhibited normal anatomy, no esophagitis/gastritis/small bowel inflammation/ulceration to explain the degree of your symptoms from a gastric standpoint. The most likely etiology is consequence from damage of the hemorrhagic stoke sustained in November of 2022, which correlates to the duration/chronicity of your symptoms. Selective use of antiemetics with meal time can help with these symptoms. Additionally, transitioning back to small, protein based/bariatric style meals can help mitigate nausea given the notably decreased intake, your anatomy may not allow the large/standard meals people tend to enjoy. You noted improvement with the following: -Promethazine 25mg with meals as needed for nausea -Olanzapine 5mg in the morning For stomach/reflux management: -Continue Carafate liquid four times a day for the next 7 days -Continue Protonix (pantoprazole) daily before breakfast Follow up with Neurology/Primary Care Physician to discuss termite control servicer management of nausea. Follow up with Bariatric team, Neurology, and PCP will be coordinated. Total Time Total Time Spent Total Time Spent (In Minutes): 45
[2023-09-14] MEDS ORDERED: OLANZapine ZYDIS 5 MG ORALLY DIS. TAB PO SCH (09:00)
== END 2023-09-13 15:21 | disposition home or self-care (01) | DRG 391 ==
LOC: EDINP 11:53 → ED 11:53 → SUATTDRO 14:52 → 2N 17:33 → SUATTDRO 09-09 17:18 → 2N 09-11 15:51

== ENCOUNTER 2024-04-27 04:23 | Inpatient (IN) ==
--- OUTSIDE RECORDS SUMMARY | 2024-04-27 04:29 | External Medical Summary | Summary of Care ---
Author Name Unknown Organization [facility] Address [address] [place] [address] Phone [phone] Care Team Providers Care Chief Learning Officer Name Role Phone Terri Owens PA-C Primary Care Provider [phone] Reason for Visit * Reason Onset Date Comments Advice 02/27/2024 Encounter Details Date Type Department Care Team (Late st Contact Info) Description 02/27/2024 Telephone Nutrition & Weight Management, [place] [address] [phone] Addie Ramirez RDN [address] [place], [place] [phone] Advice Allergies No known active allergiesdocumented as of this encounter (statuses as of 04/21/2024) Medications Medication Sig Dispensed Refills Start Date End Date Status Triamcinolone Acetonide 0.1 % External Ointment (Aristocort)Indicati ons:Prurigo Apply 2x daily (or more if itchy instead of scratching) to rash/lesions all over body until resolved 454 g 11/17/2020 Active Additional Information Patient not taking.Informant: Patient, Reported on 02/12/2024 Adapalene 0.1 % External GelIndications:Acne vulgaris Apply topically to affected area. As directed. 15 g 5 11/17/2020 Active One-A-Day Womens Oral Tablet Take by mouth. Active Ondansetron 4 MG Oral Tablet Disintegrating (Zofran) Place 1 Tablet on tongue every 8 hours as needed for Nausea. dissolve on tongue. 30 Tablet 3 08/28/2022 Active Magnesium 400 MG Oral Tablet 2 tabs daily 05/14/2023 Active Zinc 50 MG Oral Tablet Take 1 Tablet by mouth in the morning. 05/14/2023 Active Pantoprazole Sodium 40 MG Oral Tablet Delayed Release (Protonix) Take 1 Tablet by mouth as needed. 09/13/2023 Active Promethazine HCl 25 MG Oral Tablet (Phenergan) Take 1 Tablet by mouth every 6 hours as needed. 09/13/2023 Active Acetaminophen 325 MG Oral Tablet (Tylenol)Indications :Other iron deficiency anemia,Intestinal postoperative nonabsorption,S/P gastric bypass Take 2 Tablets by mouth as needed (for mild to moderate reaction (infusion reaction protocol)). 10/25/2023 Active Sodium Chloride 0.9 % Intravenous SolutionIndications: Other iron deficiency anemia,Intestinal postoperative nonabsorption,S/P gastric bypass Per IS IV iron anaphylaxis protocol. TO BE ADMINISTERED IN THE EVENT OF ANAPHYLACTIC REACTION 1000 mL 10/25/2023 Active Additional Information Patient not taking.Informant: Patient, Reported on 11/06/2023 dexAMETHasone Sodium Phosphate 4 MG/ML Injection Solution (Decadron)Indication s:Other iron deficiency anemia,Intestinal postoperative nonabsorption,S/P gastric bypass Inject 8 mg intravenously as needed for Anaphylaxis (severe allergic reaction). Per IS IV iron anaphylaxis protocol 2 mL 10/25/2023 Active Additional Information Patient not taking.Informant: Patient, Reported on 11/06/2023 EPINEPHrine (Anaphylaxis) 1 MG/ML Injection SolutionIndications: Other iron deficiency anemia,Intestinal postoperative nonabsorption,S/P gastric bypass Inject 0.3 mL into a large muscle as needed for Anaphylaxis (severe allergic reaction). Per IS IV iron anaphylaxis protocol. May repeat every 15 min as needed per infusion reaction protocol 2 mL 10/25/2023 Active Additional Information Patient not taking.Informant: Patient, Reported on 11/06/2023 Ferrous Sulfate 325 (65 Fe) MG Oral Tablet (Feosol) Take 1 Tablet by mouth daily at noon. Follow up with GI nutrition for further management. 30 Tablet 1 11/11/2023 Active Calcium Citrate-Vitamin D 315-5 MG-MCG Oral Tablet Take 2 Tablets by mouth in the morning and 2 Tablets before bedtime. Follow up with GI nutrition for further management.. 120 Tablet 1 11/11/2023 Active B-Complex/Vitamin C Oral Tablet (Therapeutic B Complex W/C) Take 1 Tablet by mouth in the morning. Follow up with GI nutrition for further management.. 30 Tablet 1 11/12/2023 Active Additional Information Patient not taking.Reported on 02/12/2024 Cyclobenzaprine HCl 5 MG Oral Tablet (Flexeril) Take 1 Tablet by mouth every 8 hours as needed for Muscle spasms. 12 Tablet 11/11/2023 Active Additional Information Patient not taking.Reported on 02/12/2024 Ascorbic Acid 250 MG Oral Tablet Take 1 Tablet by mouth daily at noon. Follow up with GI nutrition for further management. 30 Tablet 1 11/11/2023 Active Additional Information Patient not taking.Reported on 02/12/2024 Vitamin D3 25 MCG (1000 UT) Oral Tablet (Vitamin D3) Take 1 Tablet by mouth in the morning. Follow up with GI nutrition for further management.. 30 Tablet 1 11/12/2023 Active Scopolamine 1 MG/3DAYS Transdermal Patch 72 Hour (Transderm Scop) Place 1 Patch over 72 hours topically on the skin every 3 days. 10 Patch 12 11/14/2023 Active Prochlorperazine Maleate 5 MG Oral Tablet (Compazine) Take 1 Tablet by mouth every 6 hours as needed for Nausea. 20 Tablet 11/14/2023 Active LORazepam 1 MG Oral Tablet (Ativan) TAKE 1 TABLET BY MOUTH EVERY 8 HOURS NEEDED FOR ANXIETY 30 Tablet 12/18/2023 Active Additional Information Patient not taking.Reported on 02/12/2024 Hospital, Clinic, or Other Facility Administered Medication Ordered Dose Route Frequency Start Date End Date Status vitamin b-12 (Cyanocobalamin) inj 1,000 mcgIndications:Postgastric surgery syndrome 1000 mcg IM [id number] 10/16/2022 07/20/2025 Active documented as of this encounter (statuses as of 04/21/2024) Active Problems Problem Noted Date Diagnosed Date Intracranial hemorrhage 11/19/2023 S/P gastrostomy tube (G tube) placement, follow- up exam 11/14/2023 Nausea 11/14/2023 Hyperkalemia 11/09/2023 Attention to G-tube 11/07/2023 History of Maryuri-en-Y gastric bypass 11/06/2023 Unintentional weight loss 11/06/2023 Severe protein-energy malnutrition 10/31/2023 Concussion 08/23/2022 Pain medication agreement broken 12/13/2021 Prediabetes 06/12/2021 [...] as of this encounter (statuses as of 04/21/2024) Resolved Problems Problem Noted Date Diagnosed Date Resolved Date Chronic obstructive pulmonary disease 11/15/2021 11/15/2021 Pre-operative examination 11/16/2020 Morbid obesity due to excess calories 10/27/2020 12/18/2021 MEDICATION USE AGREEMENT 05/14/2012 Overview: Updated 03/04/2015 MD Neli Briceño III's [place] Calculus of gallbladder with out mention of cholecystitis or obstruction 11/16/2020 documented as of this encounter (statuses as of 04/21/2024) Immunizations Name Administration Dates Next Due COVID-19 mRNA, LNP-s, No Pre serve, 2-Dose Series (Pfizer) 11/24/2020,11/03/2020 Seasonal Influenza Vac., MDV , IM, 0.5 mL (Fluzone) 06/04/2014,06/30/2013,05/14/2012,2010,05/14/2007 Seasonal Influenza, PF, 6 M & above, IM , (FluLaval or Fluzone) 06/17/2023,04/24/2022,04/20/2020,2017,04/10/2017 TD, Preservative Free 07/27/2020 TDAP, Age 7 and older, IM (Adacel) 05/14/2007 documented as of this encounter Social History Tobacco Use Types Packs/Day Years Used Date Smoking Tobacco: Former Cigarettes 0.3 16 0 07/10/1987 - 07/10/2003 Passive Smoke Exposure: Past Smokeless Tobacco: Never Alcohol Use Standard Drinks/Week Comments Not Currently 0 (1 standard drink = 0.6 oz pur e alcohol) PHQ-2 Answer Date Recorded PHQ-2 Score 5 05/09/2020 Personal Safety Answer Date Recorded Do you feel unsafe or have concerns for your saf ety? No 11/06/2023 Do you have concerns for you r family's safety? (Household - for ages 0-17 years) Not on file 11/06/2023 Utilities Answer Date Recorded Do you have trouble paying y our heating, water, or electric bill? No 11/06/2023 Is your family able to pay t he heat, water, or electric bill? (Household - for ages 0-17 years) Not on file 11/06/2023 Does your family have access to good internet? (Household - for ages 0-17 years) Not on file 11/06/2023 Social Connections Answer Date Recorded How often do you feel lonely or isolated from those around you? (Adult - for ages 18 years and over) Not on file 12/17/2023 Transportation Needs Answer Date Record ed READ ONLY Do you have troubl e getting a ride to medical visits or work? Never True 11/06/2023 Does your family have a hard time getting a ride to doctors visits? (Household - for ages 0-17 years) Not on file 11/06/2023 Has lack of transportation k ept you from medical appointments, meetings, work, or from getting things needed for daily living? Check all that apply. (Adult - for ages 18 years and over) Not on file 11/06/2023 Do you (or your family) have trouble finding or paying for a ride (transportation)? (Household - for ages 0-17 years) Not on file 11/06/2023 Housing Stability Answer Date Recorded Do you currently live in a s helter or have no steady place to sleep at night? (Adult - for ages 18 years and over) Not on file 11/06/2023 READ ONLY Do you think you a re at risk of becoming homeless? No 11/06/2023 Does your family worry about paying for your home or becoming homeless? (Household - for ages 0-17 years) Not on file 0 11/06/2023 Are you homeless or worried that you might be in the future? (Adult - for ages 18 years and over) Not on file Are you (or your family) evelyn eless or worried that you might be in the future? (Household - for ages 0-17 years) Not on file Food Insecurity Answer Date Recorded Do you need food for this week? No 11/06/2023 Are you able to get enough f ood for your family? (Household - for ages 0-17 years) Not on file 11/06/2023 Does your family need food t his week? (Household - for ages 0-17 years) Not on file 11/06/2023 Do you always have enough fo od for your family? (Household - for ages 0-17 years) Not on file 11/06/2023 Sex and Gender Information Value Date Recorded Sex Assigned at Not on file Gender Identity Not on file Sexual Orientation Not on file Job Start Date Occupation Industry Not on file Not on file Not on file documented as of this encounter Functional Status Functional Status Response Date of Assess ment Are you deaf or do you have serious difficulty h earing? No 11/06/2023 Are you blind or do you have serious difficulty seeing, even when wearing glasses? No 11/06/2023 Do you have serious difficul ty walking or climbing stairs? (5 years old or older) No 11/06/2023 Do you have difficulty dress ing or bathing? (5 years old or older) No 11/06/2023 Because of a physical, menta l, or emotional condition, do you have difficulty doing errands alone such as visiting a doctor s office or shopping? (15 years old or older) No 11/06/19 Cognitive Status Response Date of Assessm ent Because of a physical, menta l, or emotional condition, do you have serious difficulty concentrating, remembering, or making decisions? (5 years old or older) No 11/06/2023 documented as of this encounter Miscellaneous Notes * Telephone Encounter - Dede Le CRNP - 04/21/2024 5:02 PM EDT Evaluated by Addie Ramirez RDN 04/14/24. Issues resolved. * Telephone Encounter - Lori Domínguez OSA - 02/27/2024 10:59 AM EDT Patient states she's had a feeding tube for about 4 mos. And 3 days ago she started throwing up. Nausea. Has a little bit of redness in the area. Very concerned because she is not able to eat. Pleaseadvise. documented in this encounter Plan of Treatment Upcoming Encounters Date Type Department Care Team (Late st Contact Info) Description 05/14/2024 10:00 AM EST Nurse Only Gastroenterology, [place] [address] [place] [address] [place] Nurse Gastroenterology [address] [place] [address] 06/11/2024 1:00 PM EST Telemedicine Nutrition & Weight Management, [place] [address] [place] [address] Addie Ramirez RDN [address] [place] [address] Scheduled Procedures Name Priority Associated Diagnoses Date/Ti me ESOPHAGOGASTRODUODENOSCOPY ( EGD), FLEXIBLE, TRANSORAL, DIAGNOSTIC Recall Intestinal metaplasia of stomach COLONOSCOPY FLEXIBLE PROXIMAL DIAGNOSTIC Recall Screen for colon cancer Health Maintenance Due Date Last Done Comments HIV Screening 1985 Hepatitis C Screening 1988 Hepatitis B Vaccine (1 of 3 - 19+ 3-dose series) 1989 Cologuard 2015 Fecal Occult Blood Test 2015 Sigmoidoscopy 2015 Zoster Vaccines (1 of 2) 2020 Depression Monitoring 05/09/2021 05/09/2020 Mammogram 08/03/2023 08/03/2022, 08/01, 10/25/2015, Additional history exists COVID-19 Vaccine ( season) 2024 07/25/2021, 11/24/2020, 11/03/2020 Influenza Vaccine (FLU shot) (#1) 2024 06/17/2023, 04/24/2022, 04/20/2020, Additional history exists HbA1c 10/21/2024 10/22/2023, 11/0 08/2020, 06/30/2013 Lipid Panel 10/21/2028 10/22/2023, 11/0 08/2020, 03/22/2016, Additional history exists DTap/Tdap Vaccines (3 - Td or Tdap) 07/27/2030 07/27/2020, 05/14/2007 Colonoscopy 08/31/2030 08/31/2020, 03/0 08/2020, 06/30/2014, Additional history exists Colorectal Cancer Screening 08/31/2030 Pap Smear Discontinued 12/25/2016, 08/30, 05/20/2012 (Done elsewhere), Additional history exists HPV (Gardasil) Vaccine Aged Out No lo nger eligible based on patient's age to complete [...] filedocumented as of this encounter Advance Directives * Full Code (Latest Code Status on File) Date Activated Date Inactivated Comments 11/06/2023 5:16 PM 11/11/2023 6:52 PM This order re flects the patients wishes and were consensually agreed upon. Question Answer Comments Discussion of Advance Directives occurred with: Patient Does the patient have a Living Will? Yes, not cu rrently available Does the patient have Health Care Power of Air Quality Manager? Yes, not currently available * Full Code Date Activated Date Inactivated Comments 11/06/2023 11:42 AM 11/06/2023 5:16 PM Question Answer Comments Discussion of Advance Direct cris occurred with: Not Discussed due to patient's condition * Full Code Date Activated Date Inactivated Comments 11/30/2020 2:35 PM 12/01/2020 9:49 PM Question Answer Comments Discussion of Advance Directives occurred with: Not Discussed Does the patient have a Living Will? No Does the patient have Health Care Power of Attor carlos? No * Full Code Date Activated Date Inactivated Comments 11/30/2020 10:42 AM 11/30/2020 2:35 PM This order re flects the patients wishes and were consensually agreed upon. * Full Code Date Activated Date Inactivated Comments 07/09/2011 1:09 PM 07/12/2011 6:35 PM This order re flects the patients wishes and were consensually agreed upon. Question Answer Comments Discussion of Advance Directives occurred with: Not Discussed Does the patient have a Living Will? No Does the patient have Health Care Power of Attor carlos? No Care Teams Chief Learning Officer Relationship Specialty Start Date End Date Graceila September ANDREA [address] [place] [id number] PCP - General Physician Engineering Illustrator 01/11/24 documented as of this encounter
--- OUTSIDE RECORDS SUMMARY | 2024-04-27 04:30 | External Medical Summary | Summary of Care ---
Author Name Unknown Organization [facility] Address [address] [place] [address] Phone [phone] Care Team Providers Care Administrative Coordinator Name Role Phone Terri Owens PA-C Primary Care Provider [phone] Reason for Visit * Reason Onset Date Comments Other 01/20/2024 Encounter Details Date Type Department Care Team (Late st Contact Info) Description 01/20/2024 Telephone Access Center, [place] [address] [facility] *DO NOT REMOVE THIS DEPARTMENT* [place] [address] Services, Scheduling [address] [place] [address] Other Allergies No known active allergiesdocumented as of this encounter (statuses as of 04/20/2024) Medications Medication Sig Dispensed Refills Start Date [...] deficiency anemia,Intestinal postoperative nonabsorption,S/P gastric bypass Per [facility] IV iron anaphylaxis protocol. TO BE ADMINISTERED [...] 1,000 mcgIndications:Postgastric surgery syndrome 1000 mcg IM [id number] 10/16/2022 07/20/2025 Active documented as of this encounter (statuses as of 04/20/2024) Active Problems Problem Noted Date Diagnosed Date [...] as of this encounter (statuses as of 04/20/2024) Resolved Problems Problem Noted Date Diagnosed Date Resolved Date Chronic obstructive pulmonary disease 11/15/2021 11/15/2021 Pre-operative examination 11/16/2020 Morbid obesity due to excess calories 10/27/2020 12/18/2021 MEDICATION USE AGREEMENT 05/14/2012 Overview: Updated 03/04/2015 MD Neli Briceño III's [place] Calculus of gallbladder with out mention of cholecystitis or obstruction 11/16/2020 documented as of this encounter (statuses as of 04/20/2024) Immunizations Name Administration Dates Next Due COVID-19 mRNA, LNP-s, No Pre serve, 2-Dose Series (TUNJI) 11/24/2020,11/03/2020 Seasonal Influenza Vac., MDV , IM, [...] encounter Miscellaneous Notes * Telephone Encounter - Mayuri Stauffer OSA - 01/20/2024 9:49 AM EDT Your 840 video appt is still waiting to connect with you for her appt documented in this encounter Plan of Treatment Upcoming Encounters Date Type Department Care Team (Late st Contact Info) Description 05/14/2024 10:00 AM EST Nurse Only Gastroenterology, [place] [address] [place] [address] [place] G[facility] [address] [place] [address] 06/11/2024 1:00 PM EST Telemedicine Nutrition & Weight Management, [place] [address] [place] [address] Addie Ramirez RDN [address] [place], [place] [id number] Scheduled Procedures Name Priority Associated Diagnoses Date/Ti [...] 04/20/2020, Additional history exists HbA1c 10/21/2024 10/22/2023, 110 08/2020, 06/30/2013 Lipid Panel 10/21/2028 10/22/2023, 110 08/2020, 03/22/2016, Additional history exists DTap/Tdap Vaccines [...] the patient have Health Care Power of Heel Cover Splitter? Yes, not currently available * Full Code [...] 10:42 AM 11/30/2020 2:35 PM This order r eflects the patients wishes and were consensually agreed [...] Power of Attor carlos? No Care Teams Administrative Coordinator Relationship Specialty Start Date End Date Graciela September ANDREA Ventura [address] [facility] [place] [address] PCP - General Physician Ip Counsel 01/11/24 documented as of this encounter
--- OUTSIDE RECORDS SUMMARY | 2024-04-27 04:30 | External Medical Summary | Summary of Care ---
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 for sufficient nutrients to maintain weight and strength Patient's condition warrants tube feedings for a long and indefinite duration Enteral feeding is the sole source of nutrition Nutrition Justification for Enteral Feeding Pump: Administration rate less than 100 mL/hr, remnant G-tube Nutrition Prescription: Energy: 30-40 Kcals/kg (current weight 49 kg) = 8219-8079 Kcals/day Protein: 1.0-1.2 gm protein/kg (49 kg) = 49-59 gm protein/day Fluid: 30-35 mL/kg (49 kg) = 3801-5930 mL/day Tube Feeding Prescription: 4 cartons Nutren 2.0 at goal rate of 105 mL/hr as tolerated (1000 mL formula, 2000 Kcals, 84 gm protein, 692 mL free water) -At least 3.5 cartons daily. -Additional ~800 mL water needed to maintain hydration Patient Instructions - Try to eat at least 1 meal daily (lunch) -Aim for at least 1/2 cup to 1 cup. -2-3 ounces protein, 1/4 cup produce, 1/4 cup grain/starch - Swap to Nutren 2.0. Goal at least 3.5 cartons (875 mL). Keep at 105 mL/hr as tolerated. -4 cartons is 1000 mL - Try to work on hydration. Increase to at least 32 ounces daily. -Can use the pump for water during the day if you can't meet goal by mouth. - Go to [facility] to get B-12 injection. Call to make nurse visit. - Get vitamin labs. Follow all the eating behaviors to work on building up how much you can eat: -Eat slowly. Take at least 30 minutes with meals. -Chew food well to applesauce consistency. -Sip slowly. No gulping. -No drinking with meals. Nothing 30 minutes before/after meals. -No straws, carbonation. Goals: - Tolerate goal tube feed regimen/volume consistently. - Gain weight. - Receive adequate nutrition. - Meet hydration needs. Expected Compliance: Expect compliance with recommended home enteral nutrition therapy. Recommendations to Ordering Provider: -Sign order for tube feed change. -Consider appetite stimulant. NUTRITION MONITORING AND EVALUATION: Plan for Return Appointment: 06/11 at 1 PM video Minutes of MNT: 30 min (23-37 min) Time In: 1:24 PM Time Out: 2:00 PM Addie Ramirez MS, BARBARA, LDN Clinical Dietitian Phone | [phone] [employer] documented in this encounter Plan of Treatment Upcoming Encounters Date Type Department Care Team (Late st Contact Info) Description 05/14/2024 10:00 AM EST Nurse Only Gastroenterology, [place] [address] [place] [address] [place], Nurse Gastroenterology [address] [place] [address] 06/11/2024 1:00 PM EST Telemedicine Nutrition & Weight Management, [place] [address] [place] [address] Addie Ramirez RDN [address] [place], [place] [phone] Scheduled Procedures Name Priority Associated Diagnoses Date/Ti [...] Not on filedocumented as of this encounter Visit Diagnoses Diagnosis On tube feeding diet- Primary S/P gastric bypass Bariatric surgery status 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 Yes, not currently available * Full Code [...] Power of Attor carlos? No Care Teams Distance Learning Technician Relationship Specialty Start Date End Date Terri Owens PA-C [facility] Sneha Hendricks [place] [address] PCP - General Physician Slab Off Mill Tender 01/11/24 documented as of this encounter
--- OUTSIDE RECORDS SUMMARY | 2024-04-27 04:30 | External Medical Summary | Summary of Care ---
Author Name Unknown Organization [facility] Address [address] [place] [address] Phone [phone] Care Team Providers Care Nuclear Reactor Engineer Name Role Phone Terri Owens PA-C Primary Care Provider Reason for Visit * Reason Onset Date Comments Advice 03/13/2024 Encounter Details Date Type Department Care Team (Late st Contact Info) Description 03/13/2024 Telephone Nutrition & Weight Management, [place] [address] [place] [phone] Addie Ramirez RDN [address] [place], [place] [phone] Advice Allergies No known active allergiesdocumented as of this encounter (statuses as of 03/19/2024) Medications Medication Sig Dispensed Refills Start Date [...] Additional Information Patient not taking.Reported on 02/12/2024 Nutren 1.5 Oral LiquidIndications:On tube feeding diet,Hemorrhagic stroke (HCC),Severe protein-energy malnutrition (HCC) Administer 4.5 cartons at 100 mL/hr as tolerated daily, as directed through feeding tube via feeding pump. 30860 mL 11 02/20/2024 Active Sertraline HCl 100 MG Oral Tablet (Zoloft) TAKE 2 TABLETS BY MOUTH EVERY DAY FOR DEPRESSION AND ANXIETY 180 Tablet 1 03/06/2024 Active Hospital, Clinic, or Other Facility Administered Medication Ordered Dose Route Frequency Start Date End Date Status vitamin b-12 (Cyanocobalamin) inj 1,000 mcgIndications:Postgastric surgery syndrome 1000 mcg IM [id number] 10/16/2022 07/20/2025 Active documented as of this encounter (statuses as of 03/19/2024) Active Problems Problem Noted Date Diagnosed Date [...] as of this encounter (statuses as of 03/19/2024) Resolved Problems Problem Noted Date Diagnosed Date Resolved Date Chronic obstructive pulmonary disease 11/15/2021 11/15/2021 Pre-operative examination 11/16/2020 Morbid obesity due to excess calories 10/27/2020 12/18/2021 MEDICATION USE AGREEMENT 05/14/2012 Overview: Updated 03/04/2015 MD Neli Briceño III's [place] Calculus of gallbladder with out mention of cholecystitis or obstruction 11/16/2020 documented as of this encounter (statuses as of 03/19/2024) Immunizations Name Administration Dates Next Due COVID-19 mRNA, LNP-s, No Pre serve, 2-Dose Series (Pfizer) 11/24/2020,11/03/2020 Seasonal Influenza, PF, 6 M & above, IM , (FluLaval or Fluzone) 06/17/2023,04/24/2022,04/20/2020,2017,04/10/2017 Seasonal Influenza, Trivalen t, (IIV3), with Preserv, (Fluzone) 06/04/2014,06/30/2013,05/14/2012,2010,05/14/2007 TD, Preservative Free 07/27/2020 TDAP, Age 7 [...] encounter Miscellaneous Notes * Telephone Encounter - Camila Antonio OSA - 03/19/2024 11:04 AM EDT Pt seen * Telephone Encounter - Jasmyn Almeida OSA - 03/13/2024 9:38 AM EDT Pt called back wanting to schedule appointment to come in to talk to Addie Ramirez. Pt declined available appointment that was for today, 03/13/2024. Pt is currently scheduled for a video visit with Addie for 03/26/2024, I added pt to the wait list. Pt said she will just wait for a call back to see whatshe should do. Pt is thinking the formula isn't agreeing with her. Please call pt back. * Telephone Encounter - Camila Antonio OSA - 03/13/2024 9:10 AM EDT Pt left message that she is having gastric tube issues since the tube was changed. She can be reached at [phone] documented in this encounter Plan of Treatment Upcoming Encounters Date Type Department Care Team (Jonny Contact Info) Description 03/26/2024 9:00 AM EDT Telemedicine Nutrition & Weight Management, [place] [address] [place] [address] Addie Ramirez RDN [address] [place] [address] 04/14/2024 1:20 PM EDT Telemedicine Nutrition & Weight Management, [place] [address], [place] [phone] Addie Ramirez RDN [address] [place], [place] [phone] 05/14/2024 10:00 AM EST Nurse Only Gastroenterology, [place] [address], [place] [phone] [place] Nurse G[facility] [address] [place], [place] [phone] Scheduled Procedures Name Priority Associated Diagnoses Date/Ti [...] Depression Monitoring 05/09/2021 05/09/2020 Mammogram 08/03/2023 08/03/2022, 0209/2018, 10/25/2015, Additional history exists COVID-19 Vaccine ( season) 2024 07/25/2021, 11/24/2020, 11/03/2020 Influenza Vaccine (FLU shot) (#1) 2024 06/17/2023, 04/24/2022, 04/20/2020, Additional history exists HbA1c 10/21/2024 10/22/2023, 11/0 08/2020, 06/30/2013 Lipid Panel 10/21/2028 10/22/2023, 08/2020, 03/22/2016, Additional history exists DTap/Tdap Vaccines [...] the patient have Health Care Power of Dehydration Unit Operator? Yes, not currently available * Full Code [...] Power of Attor carlos? No Care Teams Nuclear Reactor Engineer Relationship Specialty Start Date End Date GracielaSeptember Lorenzo, ANDREA [address] [facility] [place] [address] PCP - General Physician Senior Sales Assistant 01/11/24 documented as of this encounter
--- OUTSIDE RECORDS SUMMARY | 2024-04-27 04:30 | External Medical Summary | Summary of Care ---
Author Name Unknown Organization [facility] Address [address] [place] [address] Phone [phone] Care Team Providers Care Home Care Attendant Name Role Phone Bebeed Terri Ventura PA-C Primary Care Provider [phone] Reason for Visit * Reason Onset Date Comments Med Request 12/17/2023 Encounter Created in Error 12/17/2023 Encounter Details Date Type Department Care Team (Late st Contact Info) Description 12/17/2023 Telephone Family Practice [facility] [address] [facility] [place] [address] Joey Crockett III, MD [address] [place] [address] Med Request; Encounter Created in Error Allergies No known active allergiesdocumented as of this encounter (statuses as of 03/17/2024) Medications Medication Sig Dispensed Refills Start Date [...] needed for Nausea. 20 Tablet 11/14/2023 Active Hospital, Clinic, or Other Facility Administered Medication Ordered Dose Route Frequency Start Date End Date Status vitamin b-12 (Cyanocobalamin) inj 1,000 mcgIndications:Postgastric surgery syndrome 1000 mcg IM [id number] 10/16/2022 07/20/2025 Active documented as of this encounter (statuses as of 03/17/2024) Active Problems Problem Noted Date Diagnosed Date [...] as of this encounter (statuses as of 03/17/2024) Resolved Problems Problem Noted Date Diagnosed Date Resolved Date Chronic obstructive pulmonary disease 11/15/2021 11/15/2021 Pre-operative examination 11/16/2020 Morbid obesity due to excess calories 10/27/2020 12/18/2021 MEDICATION USE AGREEMENT 05/14/2012 Overview: Updated 03/04/2015 MD Neli Briceño III's [place] Calculus of gallbladder with out mention of cholecystitis or obstruction 11/16/2020 documented as of this encounter (statuses as of 03/17/2024) Immunizations Name Administration Dates Next Due COVID-19 mRNA, LNP-s, No Pre serve, 2-Dose Series (Page Mage) 11/24/2020,11/03/2020 Seasonal Influenza, PF, 6 M & [...] No 11/06/2023 documented as of this encounter Plan of Treatment Upcoming Encounters Date Type Department Care Team (Late st Contact Info) Description 03/26/2024 9:00 AM EDT Telemedicine Nutrition & Weight Management, [address] [address] Addie Ramirez RDN [address] [place] [phone] 04/14/2024 1:20 PM EDT Telemedicine Nutrition & Weight Management, [address] [phone] Addie Ramirez RDN [address] [place] [phone] 05/14/2024 10:00 AM EST Nurse Only Gastroenterology, [address] [phone] [place], Nurse Gastroenterology [address] [place] [address] Scheduled Procedures Name Priority Associated Diagnoses Date/Ti [...] the patient have Health Care Power of Lift Driver? Yes, not currently available * Full Code [...] Power of Attor carlos? No Care Teams Home Care Attendant Relationship Specialty Start Date End Date Terri Owens, ELENAC [address] [facility] [place] [address] PCP - General Physician Dictaphone Operator 01/11/24 documented as of this encounter
--- OUTSIDE RECORDS SUMMARY | 2024-04-27 04:30 | External Medical Summary | Summary of Care ---
Author Name Unknown Organization [facility] Address [address] [place] [address] Phone [phone] Care Team Providers Care Credit Professional Name Role Phone Terri Owens PA-C Primary Care Provider [phone] Reason for Visit * Reason Onset Date Comments Med Request 04/14/2024 Encounter Details Date Type Department Care Team (Late st Contact Info) Description 04/14/2024 Telephone Nutrition & Weight Management, [place] [facility] [address] [place] [phone] Dede Le CRNP [address] [place], [place] [phone] Med Request Allergies No known active allergiesdocumented as of this encounter (statuses as of 04/15/2024) Medications Medication Sig Dispensed Refills Start Date [...] 4 Active Acetaminophen 325 MG Oral Tablet (Tylenol)Indication s:Other iron deficiency anemia,Intestinal postoperative nonabsorption,S/P gastric bypass Take 2 Tablets by mouth as needed (for mild to moderate reaction (infusion reaction protocol)). 4 Active Sodium Chloride 0.9 % Intravenous SolutionIndications :Other iron deficiency anemia,Intestinal postoperative nonabsorption,S/P gastric bypass Per IS IV iron anaphylaxis protocol. TO BE ADMINISTERED IN THE EVENT OF ANAPHYLACTIC REACTION 1000 mL 4 Active Additional Information Patient not taking.Informant: Patient, Reported on 11/06/2023 dexAMETHasone Sodium Phosphate 4 MG/ML Injection Solution (Decadron)Indicatio ns:Other iron deficiency anemia,Intestinal postoperative nonabsorption,S/P gastric bypass Inject 8 mg intravenously as needed for Anaphylaxis (severe allergic reaction). Per [facility]IS IV iron anaphylaxis protocol 2 mL 4 Active Additional Information Patient not taking.Informant: Patient, Reported on 11/06/2023 EPINEPHrine (Anaphylaxis) 1 MG/ML Injection SolutionIndications :Other iron deficiency anemia,Intestinal postoperative nonabsorption,S/P gastric [...] via pump at 105 mL/hr as tolerated. 34740 mL 11 4 Active Nutren 2.0 Oral Liquid Administer 4 cartons daily, as directed into PEG tube via pump at 105 mL/hr as tolerated. 3000 mL 11 4 04/14/20 24 Discontinu ed(Refill) Hospital, Clinic, or Other Facility Administered Medication Ordered Dose Route Frequency Start Date End Date Status vitamin b-12 (Cyanocobalamin) inj 1,000 mcgIndications:Postgastric surgery syndrome 1000 mcg IM [id number] 10/16/2022 07/20/2025 Active documented as of this encounter (statuses as of 04/15/2024) Active Problems Problem Noted Date Diagnosed Date [...] as of this encounter (statuses as of 04/15/2024) Resolved Problems Problem Noted Date Diagnosed Date Resolved Date Chronic obstructive pulmonary disease 11/15/2021 11/15/2021 Pre-operative examination 11/16/2020 Morbid obesity due to excess calories 10/27/2020 12/18/2021 MEDICATION USE AGREEMENT 05/14/2012 Overview: Updated 03/04/2015 Joey Crockett III, MD [facility] [place] Calculus of gallbladder with out mention of cholecystitis or obstruction 11/16/2020 documented as of this encounter (statuses as of 04/15/2024) Immunizations Name Administration Dates Next Due COVID-19 [...] 05/14/2024 10:00 AM EST Nurse Only Gastroenterology, [facility] [address] [place] [address] [facility], Nurse Gastroenterology [address] [place] [address] 06/11/2024 1:00 PM EST Telemedicine Nutrition & Weight Management, [facility] [address] [place] [address] Addie Ramirez RDN [address] [place] [address] Scheduled Procedures Name Priority Associated Diagnoses Date/Ti [...] the patient have Health Care Power of International Sales Representative? Yes, not currently available * Full Code [...] Power of Attor carlos? No Care Teams Credit Professional Relationship Specialty Start Date End Date Graciela Terri ANDREA Ventura [address] Sneha Hendricks [place] [address] PCP - General Physician Oil Spot Washer 01/11/24 documented as of this encounter
--- OUTSIDE RECORDS SUMMARY | 2024-04-27 04:30 | External Medical Summary | Summary of Care ---
Author Name Unknown Organization [facility] Address [address] [place] [address] Phone [phone] Care Team Providers Care Comparator Operator Name Role Phone Bebeed Terri Ventura PA-C Primary Care Provider [phone] Reason for Visit * Reason Comments Home Tube Feeding Encounter Details Date Type Department Care Team (Latest Contact Info) Description 04/14/2024 1:20 PM EDT [facility] [address] [place] [address] Addie Ramirez RDN [address] [place] [address] On tube feeding diet*; S/P gastric bypass; [...] directed through feeding tube via feeding pump. 88817 mL 11 024 Discontinued Hospital, Clinic, or Other Facility Administered Medication Ordered Dose Route Frequency Start Date End Date Status vitamin b-12 (Cyanocobalamin) inj 1,000 mcgIndications:Postgastric surgery syndrome 1000 mcg IM [id number] 10/16/2022 07/20/2025 Active documented as of this [...] 03/04/2015 MD Neli Briceño III [facility] [place] Calculus of gallbladder with out mention of [...] meet goal by mouth. - Go to [facility] to get B-12 injection. Call to make [...] NUTRITION FOLLOW-UP Nutrition and Weight Management/GI Nutrition [facility] Name: Aleah Marie Date: 04/14/2024 Patient was identified by name and date. Patient location: HOME. I was in a hospital or clinic location. After connecting through [employer],patient was verified with two unique identifiers. Patient (or authorized legal financial services representative) was then informed that this was [...] mL/hr. s/p PEG exchange by IR at [facility] 02/12/24. Subjective: pt reports since tube change [...] performed by Gibran Parnell MD at ENDOSCOPY [facility] COLONOSCOPY, DIAGNOSTIC (RECTUM) 08/31/2020 normal bx, repeat 10 yrs / COLONOSCOPY FLEXIBLE PROXIMAL DIAGNOSTIC performed by Rosa Driver MD at ENDOSCOPY [facility] CYSTOSCOPY/INSERTION OF STENT 07/10/2011 CYSTOURETHROSCOPY WITH INSERTION URETERAL STENT performed by DARLEEN WHARTON at OR [facility] DENTAL SURGERY PROCEDURE NEC wisdom teeth EGD, FLEXIBLE, DIAGNOSTIC N/A 11/21/2020 ESOPHAGOGASTRODUODENOSCOPY (EGD), FLEXIBLE, TRANSORAL, DIAGNOSTIC performed by Alonso Parmar MD at ENDOSCOPY [facility] EGD, FLEXIBLE, DIAGNOSTIC N/A 11/30/2020 ESOPHAGOGASTRODUODENOSCOPY (EGD), FLEXIBLE, TRANSORAL, DIAGNOSTIC performed by Alonso Parmar MD at OR [facility] EGD, FLEXIBLE, DIAGNOSTIC N/A 09/11/2023 hollie-en-Y gastrojejunostomy with gastrojejunal anastomosis/biopsies show intestinal metaplasia/repeat 1-2 years/EGD/MN EGD, FLEXIBLE, DIAGNOSTIC N/A 11/06/2023 ESOPHAGOGASTRODUODENOSCOPY (EGD), FLEXIBLE, TRANSORAL, DIAGNOSTIC performed by Anoop Chino MD at OR [facility] PSYCHOLOGIST EXPERIMENTAL PAP SCREEN 04/23/2011 negative for malignancy IR TUBE REPLACEMENT GASTROSTOMY PERCUTANEOUS OR CECOSTOMY Left 02/12/2024 PERCUTANEOUS REPLACE GASTROSTOMY OR CECOSTOMY TUBE WITH FLUORO performed by Robin Caldera MD at OR [facility] LAP SURGICAL, GASTROSTOMY N/A 11/06/2023 LAPAROSCOPIC GASTROSTOMY WITHOUT RECONSTRUCION GASTRIC TUBE performed by Anoop Chino MD at OR [facility] LAPAROSCOPIC GASTRIC BYPASS/HOLLIE-EN-Y N/A 11/30/2020 LAPAROSCOPIC GASTRIC RESTRICTIVE BYPASS HOLLIE EN Y performed by Alonso Parmar MD at [facility] LAPAROSCOPY;APPENDECTOMY 12/09/2001 LUMBAR / SACRAL EPIDURAL, ADD'L LEVEL had pain numbess LUMBAR / SACRAL EPIDURAL, SINGLE LEVEL 08/10/2015 INJECTION TRANSFORAMINAL EPIDURAL LUMBAR OR SACRAL performed by Greg Burdick DO at OR [facility] PAP SCREEN 10/10/2007 WNL/Yarelis Tai PAP SCREEN 11/17/2009 negative for mailgnancy PAP SCREEN 05/20/2012 negative/normal PARTIAL REMOVAL OF COLON 03/31/2012 diveerticulitis REMOVE GALLBLADDER 07/21/2007 lap ariana with intraoperative cholangiogram SACROILIAC JOINT INJECT W/GUIDANCE 05/18/2015 INJECTION SACROILIAC JOINT performed by Greg Burdick DO at OR [facility] SMALL BOWEL ENDOSCOPY W/BX 03/07/2011 normal acid reflux Barriers to Learning: None Special Education Needs: None Social Demographics: 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 Lives with , Kike, in [place]. Food/Nutrition-Related History: Oral Diet Recall: Regular Typical diet history/24 hr recall Breakfast: milk - occasionally oatmeal Snacks: celery, cucumber, peaches, watermelon, cantaloupe Lunch: nothing Dinner: 1/2 burger Drinks: 4-5, 8 oz glasses of Fairlife milk (2%), ~16 oz water or less Current Tube Feeding Regimen: 4-5 Nutren 1.5 at 105 mL/hr (5440-1069 mL formula, 5210-7332 Kcals, 68-85 gm protein, 764-955 mL free water) -60 mL free water flush BID Adult Energy Intake: Less than 75% of estimated energy requirement for greater than 1 month (moderate/severe, chronic illness) - for weight gain. Meeting minimum needs as evident by weight maintenance. Home Infusion Company: [facility] Phone number: [phone] - Darleen Fax number: [phone] Pertinent Medications (current): Current Outpatient Medications Medication [...] directed through feeding tube via feeding pump. 38104 mL 11 Sertraline HCl 100 MG Oral [...] 11/06/23 by surgery; exchange by IR at [facility] 02/12/24 Nerves and cognition: Awake, alert Anthropometrics [...] - 1,245 pg/mL 872 >2,000 (H) VITAMIN [id number] LAB 200 - 1,100 PG/ML 1,910 ! Folic Acid >4.5 ng/mL 10.8 Component Latest Ref Rng 10/22/2023 ALPHA-TOCOPHEROL 5.7 - 19.9 mg/L 19.7 [id number] <=4.3 mg/L 1.1 Vitamin B1 (Thiamine),B 78 - 185 nmol/L 140 Vitamin K 130 - 1500 pg/mL 594 Latest Reference Range & Units 05/03/21 00:00 10/22/23 11:16 Hemoglobin A1C 4.0 - 5.6 % 5.8 (H) HEMOGLOBIN, [id number] LAB 5.7 % 5.9 ! Latest Reference [...] 30-40 Kcals/kg (current weight 49 kg) = 3474-4765 Kcals/day Protein: 1.0-1.2 gm protein/kg (49 kg) = 49-59 gm protein/day Fluid: 30-35 mL/kg (49 kg) = 1601-1946 mL/day Tube Feeding Prescription: 4 cartons Nutren [...] meet goal by mouth. - Go to [facility] to get B-12 injection. Call to [...] MS, BARBARA, LDN Clinical Dietitian Phone | [phone] [employer] documented in this encounter Plan of Treatment Upcoming Encounters Date Type Department Care Team (Late st Contact Info) Description 05/14/2024 10:00 AM EST Nurse Only Gastroenterology, [place] [address] [place] [address] [place], Nurse Gastroenterology [address] [place] [address] 06/11/2024 1:00 PM EST Telemedicine Nutrition & Weight Management, [place] [address] [place] [address] Adide Ramirez RDN [address] [place], [place] [phone] Scheduled Procedures Name Priority Associated Diagnoses Date/Ti [...] the patient have Health Care Power of Software Architect? Yes, not currently available * Full Code [...] Power of Attor carlos? No Care Teams Comparator Operator Relationship Specialty Start Date End Date Terri Owens PA-C [facility] Sneha Hendricks [place] [address] PCP - General Physician Patient Ambassador 01/11/24 documented as of this encounter
--- OUTSIDE RECORDS SUMMARY | 2024-04-27 04:30 | External Medical Summary | Summary of Care ---
Author Name Unknown Organization [facility] Address [address] [place] [address] Phone [phone] Care Team Providers Care Reconnaissance Crewmember Name Role Phone Terri Owens PA-C Primary Care Provider [phone] Reason for Visit * Reason Comments eRx-Medication Refill Encounter Details Date Type Department Care Team (Late st Contact Info) Description 03/05/2024 Refill Family Practice [facility] [address] [place] [address] Joey Crockett III, MD [address] [place] [address] Allergies No known active allergiesdocumented as of this encounter (statuses as of 03/06/2024) Medications Medication Sig Dispensed Refills Start Date [...] not taking.Reported on 02/12/2024 Nutren 1.5 Oral LiquidIndications: On tube feeding diet,Hemorrhagic stroke (HCC),Severe protein-energy malnutrition (HCC) Administer 4.5 cartons at 100 mL/hr as tolerated daily, as directed through feeding tube via feeding pump. 47565 mL 11 4 Active Sertraline HCl 100 MG Oral Tablet (Zoloft) TAKE 2 TABLETS BY MOUTH EVERY DAY FOR DEPRESSION AND ANXIETY 180 Tablet 1 4 Active Sertraline HCl 100 MG Oral Tablet (Zoloft) TAKE 2 TABLETS BY MOUTH EVERY DAY FOR DEPRESSION AND ANXIETY Strength: 100 mg 180 Tablet 1 4 024 Discontinued Hospital, Clinic, or Other Facility Administered Medication Ordered Dose Route Frequency Start Date End Date Status vitamin b-12 (Cyanocobalamin) inj 1,000 mcgIndications:Postgastric surgery syndrome 1000 mcg IM [id number] 10/16/2022 07/20/2025 Active documented as of this encounter (statuses as of 03/06/2024) Active Problems Problem Noted Date Diagnosed Date [...] as of this encounter (statuses as of 03/06/2024) Resolved Problems Problem Noted Date Diagnosed Date Resolved Date Chronic obstructive pulmonary disease 11/15/2021 11/15/2021 Pre-operative examination 11/16/2020 Morbid obesity due to excess calories 10/27/2020 12/18/2021 MEDICATION USE AGREEMENT 05/14/2012 Overview: Updated 03/04/2015 MD Neli Briceño III's [place] Calculus of gallbladder with out mention of cholecystitis or obstruction 11/16/2020 documented as of this encounter (statuses as of 03/06/2024) Immunizations Name Administration Dates Next Due COVID-19 [...] encounter Miscellaneous Notes * Telephone Encounter - Alycia Mccloud RPh - 03/06/2024 1:05 PM EDT Signed Prescriptions: Disp Refills Sertraline HCl 100 MG Oral Tablet (Zoloft) 180 Ta*1 Sig: TAKE 2 TABLETS BY MOUTH EVERY DAY FOR DEPRESSION AND ANXIETYAuthorizing Provider: TERRI OWENS User: ALYCIA MCCLOUD documented in this encounter Plan of Treatment Upcoming Encounters Date Type Department Care Team (Late st Contact Info) Description 03/26/2024 9:00 AM EDT Telemedicine Nutrition & Weight Management, [place] [address] [place] [address] Addie Ramirez RDN [address] [place] [address] 04/14/2024 1:20 PM EDT Telemedicine Nutrition & Weight Management, [place] [address] [place] [address] Addie Ramirez, RDNeelam [address] [place] [address] Scheduled Procedures Name Priority Associated Diagnoses Date/Ti [...] the patient have Health Care Power of Sba Underwriter? Yes, not currently available * Full Code [...] Power of Attor carlos? No Care Teams Reconnaissance Crewmember Relationship Specialty Start Date End Date Graciela Terri [place] [address] [place] [id number] PCP - General Physician Box Toe Cementer 01/11/24 documented as of this encounter
--- OUTSIDE RECORDS SUMMARY | 2024-04-27 04:30 | External Medical Summary | Summary of Care ---
Author Name Unknown Organization [facility] Address [address] [place] [address] Phone [phone] Care Team Providers Care Continuous Miner Name Role Phone Bebeed Terri Ventura PA-C Primary Care Provider [phone] Reason for Visit * Reason Comments Home Tube Feeding Encounter Details Date Type Department Care Team (Latest Contact Info) Description 03/13/2024 1:20 PM EDT [facility] [address] [place] [address] Addie Ramirez RDN [address] [place] [address] On tube feeding diet*; S/P gastric bypass; Intestinal postoperative nonabsorption; Severe protein-energy malnutrition (HCC); Unintentional weight loss; Nausea and vomiting, unspecified vomiting type; Diarrhea, unspecified type Allergies No known active allergiesdocumented as of this encounter (statuses as of 03/13/2024) Medications Medication Sig Dispensed Refills Start Date [...] GHIS IV iron anaphylaxis protocol 2 mL 10/25/2023 [...] directed through feeding tube via feeding pump. 16260 mL 11 02/20/2024 Active Sertraline HCl 100 MG Oral Tablet (Zoloft) TAKE 2 TABLETS BY MOUTH EVERY DAY FOR DEPRESSION AND ANXIETY 180 Tablet 1 03/06/2024 Active Hospital, Clinic, or Other Facility Administered Medication Ordered Dose Route Frequency Start Date End Date Status vitamin b-12 (Cyanocobalamin) inj 1,000 mcgIndications:Postgastric surgery syndrome 1000 mcg IM [id number] 10/16/2022 07/20/2025 Active documented as of this encounter (statuses as of 03/13/2024) Active Problems Problem Noted Date Diagnosed Date [...] as of this encounter (statuses as of 03/13/2024) Resolved Problems Problem Noted Date Diagnosed Date Resolved Date Chronic obstructive pulmonary disease 11/15/2021 11/15/2021 Pre-operative examination 11/16/2020 Morbid obesity due to excess calories 10/27/2020 12/18/2021 MEDICATION USE AGREEMENT 05/14/2012 Overview: Updated 03/04/2015 MD Neli Briceño III's [place] Calculus of gallbladder with out mention of cholecystitis or obstruction 11/16/2020 documented as of this encounter (statuses as of 03/13/2024) Immunizations Name Administration Dates Next Due COVID-19 [...] - Inhaled Oxygen Concentration - - Weight 48.5 kg (107 lb) 03/13/2024 10:48 AM EDT pt reported Height 160 cm (5' 2.99") 03/13/2024 10:48 AM EDT Body Mass Index 18.96 03/13/2024 10:48 AM EDT documented in this encounter Functional Status [...] No 11/06/2023 documented as of this encounter Progress Notes * Dede Le CRNP - 03/13/2024 4:22 PM EDT Discussed case with Dr. Magda Albarado. Ordered tube study, GI panel, C diff, and SIBO breath test to evaluate possible causes of nausea and diarrhea since tube change. MONALISA Hendrix * Addie Ramirez RDN - 03/13/2024 10:25 AM EDT Nutrition and Weight Management/GI Nutrition [address] [address] Name: Aleah Marie Date: 03/13/2024 After connecting to the patient via telephone, the patient was identified by name and date of . Patient was then informed that this was a telephone call only visit. The patient agreed to participate. RD received message about pt not tolerating tube feeds or PO intake. Pertinent intermittent history: Saw SERICULTURE TEACHER 01/24/24 and order was adjusted as previously discussed with RD to 4.5 cartons Nutren 1.5 at 100 mL/hr. s/p PEG exchange by IR at [facility] 02/12/24. Subjective: pt reports since tube [...] to monitor dumping with history of RYGB. Insignificant, but unfavorable 1.8% loss x1 month Wt Readings from Last 15 Encounters: 03/13/24 48.5 kg (107 lb) 02/12/24 49.4 [...] 9.6 oz) 01/10/23 52.2 kg (115 lb) 11/19/22 56.4 kg (124 lb 6.4 oz) Discussed with MONALISA Rob, and attending physician, Dr. Albarado. Plan for fluoro tube imaging, GI stool panel, C. Diff, and SIBO testing. Addie Ramirez MS, RDN, LDN Clinical Dietitian Phone | [phone] [employer] documented in this encounter Plan of Treatment Upcoming Encounters Date Type Department Care Team (Late st Contact Info) Description 03/26/2024 9:00 AM EDT Telemedicine Nutrition & Weight Management, [address] [address] Addie Ramirez RDN [address] [place] [address] 04/14/2024 1:20 PM EDT Telemedicine Nutrition & Weight Management, [address] [address] Addie Ramirez RDN [address], [place] [id number] Scheduled Orders Name Type Priority Associated Diagnoses Order Schedule XR GI TUBE EVAL WITH CONTRAST INJECTION Medical Imaging Routine On tube feeding diet Nausea and vomiting, unspecified vomiting type Diarrhea, unspecified type Ordered: 03/13/2024 GASTROINTESTINAL PATHOGEN PANEL, STOOL Lab Routine Nausea and vomiting, unspecified vomiting type Diarrhea, unspecified type Expected: 03/13/2024, Expires: 03/13/2025 CLOSTRIDIUM DIFFICILE, PCR Lab Routine Nausea and vomiting, unspecified vomiting type Diarrhea, unspecified type Expected: 03/13/2024, Expires: 03/13/2025 BREATH HYDROGEN BACTERIAL OVERGROWTH Procedures Routine Nausea and vomiting, unspecified vomiting type Diarrhea, unspecified type Ordered: 03/13/2024 Scheduled Procedures Name Priority Associated Diagnoses Date/Ti [...] Tdap) 07/27/2030 07/27/2020, 05/14/2007 Colonoscopy 08/31/2030 08/31/2020, 0 08/2020, 06/30/2014, Additional history exists Colorectal Cancer [...] protein-energy malnutrition (HCC) Other severe protein-calorie malnutrition Unintentional weight loss Loss of weight Nausea and vomiting, unspecified vomiting type Diarrhea, unspecified type documented in this encounter Advance Directives * [...] the patient have Health Care Power of Magazine Journalist? Yes, not currently available * Full Code [...] Power of Attor carlos? No Care Teams Continuous Miner Relationship Specialty Start Date End Date Graciela Terri ANDREA Ventura [facility] [place] [address] PCP - General Physician Consulting Database Administrator 01/11/24 documented as of this encounter
--- OUTSIDE RECORDS SUMMARY | 2024-04-27 04:30 | External Medical Summary | Summary of Care ---
Author Name Unknown Organization [facility] Address [address] [place] [address] Phone [phone] Care Team Providers Care Cold Type Artist Name Role Phone Terri Owens PA-C Primary Care Provider [phone] Encounter Details Date Type Department Care Team (Late st Contact Info) Description 03/17/2024 Telephone Gastroenterology, [place] [address] [place] [address] [place], Nurse Gastroenterology [address] [place], [place] [id number] Allergies No known active allergiesdocumented as of this encounter (statuses as of 03/23/2024) Medications Medication Sig Dispensed Refills Start Date [...] deficiency anemia,Intestinal postoperative nonabsorption,S/P gastric bypass Per [facility] IV iron anaphylaxis protocol. TO BE ADMINISTERED [...] directed through feeding tube via feeding pump. 11315 mL 11 02/20/2024 Active Sertraline HCl 100 MG Oral Tablet (Zoloft) TAKE 2 TABLETS BY MOUTH EVERY DAY FOR DEPRESSION AND ANXIETY 180 Tablet 1 03/06/2024 Active Hospital, Clinic, or Other Facility Administered Medication Ordered Dose Route Frequency Start Date End Date Status vitamin b-12 (Cyanocobalamin) inj 1,000 mcgIndications:Postgastric surgery syndrome 1000 mcg IM [id number] 10/16/2022 07/20/2025 Active documented as of this encounter (statuses as of 03/23/2024) Active Problems Problem Noted Date Diagnosed Date [...] as of this encounter (statuses as of 03/23/2024) Resolved Problems Problem Noted Date Diagnosed Date Resolved Date Chronic obstructive pulmonary disease 11/15/2021 11/15/2021 Pre-operative examination 11/16/2020 Morbid obesity due to excess calories 10/27/2020 12/18/2021 MEDICATION USE AGREEMENT 05/14/2012 Overview: Updated 03/04/2015 MD Neli Briceño III's [place] Calculus of gallbladder with out mention of cholecystitis or obstruction 11/16/2020 documented as of this encounter (statuses as of 03/23/2024) Immunizations Name Administration Dates Next Due COVID-19 [...] (15 years old or older) No 11/06/19 24 Cognitive Status Response Date of Assessm ent Because of a physical, menta l, or emotional condition, do you have serious difficulty concentrating, remembering, or making decisions? (5 years old or older) No 11/06/2023 documented as of this encounter Miscellaneous Notes * Telephone Encounter - Aracely Puente OSA - 03/17/2024 4:19 PM EDT Spoke with patient to review breath test preparation and date. Reviewed with patient that preparation is nothing by mouth after midnight the night before, patient instructed to hold tube feedings.no eating, drinking, smoking, chewing gum, or brushing teeth/rinsing mouth. Patient is not to be on antibiotics or laxatives/bowel preps for 3 weeks prior to test. Patient made aware they can take blood pressure or cardiac medications with sips of water if necessary, and if diabetic, not to take insulin or oral medications the morning of. Patient verbalized understanding and any questions were answered at this time. DIY message sent with the above information. documented in this encounter Plan of Treatment Upcoming Encounters Date Type Department Care Team (Late st Contact Info) Description 03/26/2024 9:00 AM EDT Telemedicine Nutrition & Weight Management, [address] [address] Addie Ramirez RDN [address] [place] [address] 04/14/2024 1:20 PM EDT Telemedicine Nutrition & Weight Management, [address] [address] Addie Ramirez RDN [address] [place] [address] 05/14/2024 10:00 AM EST Nurse Only Gastroenterology, [place] [address] [place] [address] [place], Nurse Gastroenterology [address] [place] [address] Scheduled Procedures Name Priority Associated Diagnoses Date/Ti [...] Tdap) 07/27/2030 07/27/2020, 05/14/2007 Colonoscopy 08/31/2030 08/31/2020, 0308/2020, 06/30/2014, Additional history exists Colorectal Cancer Screening [...] the patient have Health Care Power of Electric Container Tester? Yes, not currently available * Full Code [...] Power of Attor carlos? No Care Teams Cold Type Artist Relationship Specialty Start Date End Date Graciela Terri ANDREA Ventura [address] [facility] [place] [address] PCP - General Physician Cnc Machine Setter 01/11/24 documented as of this encounter
--- NOTE | 2024-04-27 05:02 | Emergency Department Note ---
Impression & Plan Intractable nausea and vomiting, Leukocytosis, Gastrostomy present ED Provider Note NAME: ZEFERINO PICKARD AGE: 54 SEX: F : 1970 ARRIVES VIA: Walk-In INFORMANT: Patient ED PROVIDER(S): Christopher Rueda MD CHIEF COMPLAINT: Intractable nausea and vomiting. 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 They describe that there is a possibility that her recurrent GI symptoms may in part be related to her prior stroke. Patient does use marijuana to stimulate appetite but they report her pattern of GI symptoms began before she started this. The patient is uncomfortable, no acute distress, afebrile with heart in the 100s and blood pressure 160s/90s. Abdomen is nondistended without discrete tenderness to palpation. Patient's gastrostomy tube site appears clean dry and intact. WBC 22.8K with neutrophilia but no left shift, nonspecific and likely reactive. H/H and platelets within normal limits. Chemistry without metabolic acidosis. Phosphorus of 1.8 and electrolytes otherwise unremarkable. LFTs are unremarkable. HS troponin 6.6, within normal limits. Lipase is normal. Albumin is normal at 4.7. CT of the abdomen pelvis was obtained and was negative for acute abnormalities. Patient treated with IV fluid hydration, IV famotidine, diphenhydramine, Reglan as well as topical capsaicin. Patient denies any significant improvement in her symptoms. Given patient's intractable nausea and vomiting in the setting of her complicated history and agree with plan for admission for further management. Patient was ordered for 5 mg of Haldol in normal saline for additional relief of cyclic vomiting. Case was discussed with Dr. Joshi, [facility] hospitalist, who will evaluate the patient for admission. Further management per admitting team. Triage Nursing notes reviewed and agree them. Prior/external medical records reviewed Vital Signs: reviewed Differential diagnosis: Gastroenteritis, food borne illness, infections, appendicitis, diverticulitis, inflammatory bowel disease, obstruction, GI bleed, biliary pathology, volvulus, as well as other pathologies. ER treatment provided: See below. Diagnostics interpreted by me: Cardiac Monitoring: An order for continuous cardiac monitoring was placed and demonstrated sinus tachycardia, 109 bpm, no ectopy. Laboratory studies: See below Imaging studies: See below Consultation(s): Case was discussed with Dr. Jsohi, [facility] hospitalist, who will evaluate the patient for admission. 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 They describe that there is a possibility that her recurrent GI symptoms may in part be related to her prior stroke. Patient does use marijuana to stimulate appetite but they report her pattern of GI symptoms began before she started this. ROS: See above HPI for pertinent positives & negatives. A total of 10 systems reviewed and were otherwise negative. VITALS:See Below PHYSICAL EXAMINATION: GENERAL: Awake, alert, fatigued/uncomfortable-appearing, in no distress HENT: Normocephalic, atraumatic. Oropharynx with dry mucous membranes and otherwise unremarkable. EYES: Normal conjunctiva. Sclera non-icteric. NECK: Supple. No nuchal rigidity. FROM. No JVD. RESPIRATORY: Clear to auscultation. CARDIAC: Tachycardic rate, normal rhythm. Extremities warm and well perfused. Pulses equal. ABDOMEN: Soft, non-distended. No tenderness to palpation. No rebound or guarding. Gastrostomy tube site clean dry and intact. MUSCULOSKELETAL: Chest examination reveals no tenderness. The back is symmetrical on inspection without obvious abnormality. There is no CVA tenderness to palpation. No joint edema. LOWER EXTREMITIES: Calves are equal size bilaterally and non-tender. No edema. No discoloration. NEURO: Normal sensorium. No sensory or motor deficits noted. SKIN: No rash or jaundice noted. Christopher Rueda MD Past Med/Surg History Problem List (Updated 04/27/24 @ 07:01 by Christopher Rueda MD) Gastrostomy present (Acute) Leukocytosis (Acute) Intractable nausea and vomiting (Acute) Unintentional weight loss Moderate protein-calorie malnutrition History of hemorrhagic cerebrovascular accident (CVA) with residual deficit occasional exp aphasia ESTEBAN (obstructive sleep apnea) (Chronic) GERD (gastroesophageal reflux disease) (Chronic) Depression (Chronic) Anxiety Medical History Pulmonary embolism Endometriosis Hemorrhagic stroke Surgical History History of Maryuri-en-Y gastric bypass H/O wisdom tooth extraction History of partial colectomy History of hysterectomy Hx of cholecystectomy History of appendectomy H/O craniotomy Social History Smoking Status: Former smoker Tobacco Type: E-cigarettes / Vaping Hx Substance Use: No Preferred Language: Bhutanese 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 Ability: Effective Furnace Charger Required: No Beliefs That Will Affect Care: None Current Living Situation: Spouse Feels Safe at Home: Yes Assistive Devices: None Allergies Allergies Allergy/AdvReac Type Severity Reaction Status Date / Time No Known Allergies Allergy Verified 02/24/24 11:06 Home Meds Home Medications Medication Instructions Recorded Confirmed lorazepam 1 mg tablet 1 mg PO TID PRN Anxiety 09/08/23 02/24/24 sertraline 100 mg tablet 200 mg PO DAILY 09/08/23 02/24/24 cyclobenzaprine 5 mg tablet 5 mg PO Q8H PRN muscle spasms 11/13/23 02/24/24 Previous Rx's Medication Instructions Recorded pantoprazole 40 mg tablet,delayed 40 mg PO DAILY #30 tabs 09/13/23 release promethazine 25 mg tablet 25 mg PO ACHS PRN nausea #180 tabs 09/13/23 metoclopramide HCl 10 mg tablet 10 mg PO Q6H PRN nausea and 11/13/23 vomiting #20 tabs Results & Data (ED) Vital Signs Vital Signs - 24 hr 04/27/24 04:27 04/27/24 04:37 04/27/24 04:47 Temperature 36.4 C L Temperature Source Oral Pulse Rate 109 H 97 H Pulse Rate [Apical] Respiratory Rate Respiratory Effort / Characteristics Respiratory Depth Respiratory Pattern Blood Pressure 166/91 H Blood Pressure [Left Arm] Blood Pressure Mean 116 Blood Pressure Mean [Left Arm] Pulse Oximetry 98 99 Oxygen Delivery Method Room Air Room Air Sepsis Recent Fever Within 48 Hours No Sepsis New/Unexplained Change in Mental Status No Sepsis Action Taken by Nursing No Action Required 04/27/24 06:41 Temperature Temperature Source Pulse Rate Pulse Rate [Apical] 84 Respiratory Rate 18 Respiratory Effort / Characteristics Non-Labored Spontaneous Respiratory Depth Normal Respiratory Pattern Regular Blood Pressure Blood Pressure [Left Arm] 150/92 H Blood Pressure Mean Blood Pressure Mean [Left Arm] 111 Pulse Oximetry 98 Oxygen Delivery Method Room Air Sepsis Recent Fever Within 48 Hours Sepsis New/Unexplained Change in Mental Status Sepsis Action Taken by Nursing Laboratory Data Attestation: I reviewed the patient's lab results. 04/27/24 04:45 04/27/24 04:45 Lab Results 04/27/24 04/27/24 04/27/24 Range/Units 04:45 04:54 Unknown WBC 22.85 H (4.8-10.8) K/ul RBC 5.42 H (4.20-5.40) M/uL Hgb 15.6 (12.0-16.0) g/dl POC Hgb 15.3 (12.0-16.0) g/dl Hct 46.5 (37.0-47.0) % POC Hct 45 (37-47) % MCV 85.8 (80.0-100.0) fL MCH 28.8 (25.0-34.0) pg MCHC 33.5 (32.0-36.0) g/dL RDW Std Deviation 39.8 (36.4-46.3) fL RDW Coeff of Aysha 12.9 (11.5-14.5) % Plt Count 305 (130-400) K/uL MPV 11.9 (9.4-12.4) fL Immature Gran % (Auto) 0.6 % Neut % (Auto) 90.1 % Lymph % (Auto) 5.7 % [place] % (Auto) 3.1 % Eos % (Auto) 0.2 % Baso % (Auto) 0.3 % Neut # (Auto) 20.62 H (1.40-6.50) K/uL Lymph # (Auto) 1.30 (1.20-3.40) K/uL [place] # (Auto) 0.70 H (0.11-0.59) K/uL Eos # (Auto) 0.04 (0.00-0.50) K/uL Baso # (Auto) 0.06 (0.00-0.20) K/uL Immature Gran # (Auto) 0.13 (0.01-0.20) K/uL PT 10.5 (9.0-12.0) Seconds INR 1.0 (0.9-1.1) POC Sodium 135 (135-144) mmol/L Sodium 135 L (136-145) mmol/L POC Potassium 4.2 (3.3-5.0) mmol/L Potassium 3.9 (3.5-5.1) mmol/L POC Chloride 101 (101-112) mmol/L Chloride 100 (98-107) mmol/L Carbon Dioxide 26 (21-32) mmol/L POC Total CO2 24 (24-31) mmol/L Anion Gap 9 (3-11) POC Anion Gap 16.0 (16-25) mmol/L POC BUN 36 H (7-18) mg/dl BUN 33 H (6-23) mg/dl Creatinine 0.58 L (0.6-1.2) mg/dl POC Creatinine 0.5 L (0.6-1.3) mg/dl Est Cr Clr Drug Dosing 84.4 ml/min eGFR 107.47 BUN/Creatinine Ratio 56.9 H (10-20) Glucose 201 H (70-99(Fasting)) mg/dl POC Glucose (other) 206 H (70-99) mg/dl Calcium 9.5 (8.6-10.3) mg/dl POC Ioniz Calcium Barbara 1.10 L (1.12-1.32) mmol/l Phosphorus 1.8 L (2.5-4.9) mg/dl Magnesium 1.8 (1.7-2.4) mg/dl Total Bilirubin 0.4 (0.2-1.0) mg/dl Direct Bilirubin 0.0 (0-0.2) mg/dl AST 18 (13-39) U/L ALT 11 (7-52) U/L Alkaline Phosphatase 105 H (34-104) U/L Troponin I High Sens 6.6 (0-14) pg/ml Total Protein 7.7 (6.0-8.3) gm/dl Albumin 4.7 (3.4-5.0) gm/dl Globulin 3.0 (2.5-4.0) gm/dl Albumin/Globulin Ratio 1.6 (0.9-2) Lipase 20 (11-82) U/L Urine Color Yellow Urine Appearance Clear (Clear) Urine pH 5.0 (4.5-7.5) Ur Specific [place] 1.030 (1.000-1.030) Urine Protein 1+ H (Negative) Urine Glucose (UA) 3+ H (Negative) Urine Ketones Negative (Negative) Urine Blood Negative (Negative) Urine Nitrite Negative (Negative) Urine Bilirubin Negative (Negative) Urine Urobilinogen Negative (Negative) Ur Leukocyte Esterase Negative (Negative) Urine WBC (Auto) 0-5 (0-5) /hpf Urine RBC (Auto) 0-2 (0-2) /hpf U Hyaline Cast (Auto) 6-10 H (0-2) /lpf U Epithel Cells (Auto) 0-2 (0-2) /hpf Urine Bacteria (Auto) None Seen (None Seen) Uric Acid Crystals Present A (None Prsent) Granular Casts Present A (None Prsent) /lpf Adenovirus (PCR) Not Detected (NotDetected) B. pertussis DNA (PCR) Not Detected (NotDetected) B.parapertussis DNA PCR Not Detected (NotDetected) C. pneumoniae DNA (PCR) Not Detected (NotDetected) Coronavirus OC43 (PCR) Not Detected (NotDetected) Coronavirus HKU1 (PCR) Not Detected (NotDetected) Coronavirus 229E (PCR) Not Detected (NotDetected) SARS-CoV-2 (PCR) Not Detected (NotDetected) Coronavirus NL63 (PCR) Not Detected (NotDetected) Human Metapneumovir PCR Not Detected (NotDetected) Influenza Type A (PCR) Not Detected (NotDetected) Influenza Type B (PCR) Not Detected (NotDetected) M. pneumoniae (PCR) Not Detected (NotDetected) Parainfluenza 1 (PCR) Not Detected (NotDetected) Parainfluenza 2 (PCR) Not Detected (NotDetected) Parainfluenza 3 (PCR) Not Detected (NotDetected) Parainfluenza 4 (PCR) Not Detected (NotDetected) RSV (PCR) Not Detected (NotDetected) Entero/Rhino (PCR) Not Detected (NotDetected) Administered Medications Discontinued Medications Capsaicin (Capsaicin Cr 0.075% 60 Gm Tube) 1 appln EXT NOW STA Stop: 04/27/24 05:03 Last Admin: 04/27/24 05:22 Dose: 1 appln Documented By: [facility] Diphenhydramine HCl (Diphenhydramine 50 Mg/Ml Vial) 25 mg IV NOW STA Stop: 04/27/24 05:04 Last Admin: 04/27/24 05:18 Dose: 25 mg Documented By: [facility] Sodium Chloride (Nss) 1,000 mls @ 999 mls/hr IV .Q1H1M ONE Stop: 04/27/24 05:38 Last Infusion: 04/27/24 06:18 Dose: Infused Documented By: Admin: 04/27/24 05:17 Dose: 999 mls/hr Documented By: LILIANA Famotidine (Pepcid 20mg Iv Push) 20 mg in 5 mls @ 2.5 mls/min IV NOW STA Stop: 04/27/24 04:39 Last Admin: 04/27/24 05:20 Dose: 2.5 mls/min Documented By: [facility] Haloperidol Lactate 5 mg/ (Sodium Chloride) 501 mls @ 1,002 mls/hr IV NOW STA Stop: 04/27/24 06:52 Last Admin: 04/27/24 06:38 Dose: 1,002 mls/hr Documented By: [facility] Ioversol (Optiray 320 100ml) 100 ml IV ONCE ONE Stop: 04/27/24 05:11 Last Admin: 04/27/24 05:10 Dose: 93 ml Documented By: DWIGHT Metoclopramide HCl (Metoclopramide Hcl Inj 5 Mg/Ml 2 Ml Vial) 5 mg IV ONE ONE Stop: 04/27/24 05:04 Last Admin: 04/27/24 05:17 Dose: 5 mg Documented By: [facility] Ondansetron HCl (Ondansetron Inj 2 Mg/Ml 2 Ml Vial) 4 mg IV NOW STA Stop: 04/27/24 04:39 Last Admin: 04/27/24 05:25 Dose: Not Given Documented By: [facility] Imaging Data Radiologist's Impression: Abdomen/Pelvis CT 04/27/24 04:39 Exam(s): CT ABDOMEN + PELVIS With Contrast IV Amt: 93 ml optiray 320 EXAM: CT Abdomen and Pelvis With Intravenous Contrast CLINICAL HISTORY: Reason for exam: abd, n/v. TECHNIQUE: Axial computed tomography images of the abdomen and pelvis with intravenous contrast. CTDI is 7.64 mGy and DLP is 353.73 mGy-cm. Automated exposure control was utilized for the study. A dose lowering technique was utilized adhering to the principles of ALARA. CONTRAST: Patient received 93 ml optiray 320 of IV contrast COMPARISON: February 24, 2024. FINDINGS: ABDOMEN: Liver: Unremarkable. No mass. Gallbladder and bile ducts: Cholecystectomy. No ductal dilation. Pancreas: Unremarkable. No mass. No ductal dilation. Spleen: Unremarkable. No splenomegaly. Adrenals: Unremarkable. No mass. Kidneys and ureters: Unremarkable. No solid mass. No hydronephrosis. Stomach and bowel: There has been interval surgery in the region of the upper rectum. There has been a previous gastric bypass. A gastrostomy tube is in the excluded stomach lumen. No obstruction. No mucosal thickening. PELVIS: Appendix: No findings to suggest acute appendicitis. Bladder: Unremarkable. No mass. Reproductive: Hysterectomy. ABDOMEN and PELVIS: Intraperitoneal space: Unremarkable. No free air. No significant fluid collection. Bones/joints: No acute findings. Soft tissues: Unremarkable. Vasculature: Unremarkable. No abdominal aortic aneurysm. Lymph nodes: Unremarkable. No enlarged lymph nodes. IMPRESSION: No acute findings in the abdomen or pelvis. Electronically signed by: Danis Giordano MD 04/27/24 05:33 AM Chest X-Ray 04/27/24 04:39 XR chest 1V portable CLINICAL HISTORY: Abdominal pain, nausea and vomiting. COMPARISON STUDY: Chest CT 621. Chest radiograph November 13, 2023. FINDINGS: Lung volumes are normal. Lungs are clear. There is no pneumothorax or pleural effusion. Cardiac size is normal. Mediastinal contours are normal. There is no evidence for pulmonary edema. IMPRESSION: No acute cardiopulmonary findings. ACT 112: Negative or not required by law. Electronically signed by: Lyle Romo M.D. 04/27/2024 6:54 AM Discharge Plan Visit Data Chief Complaint: Abdominal Pain Stated Complaint: VOMMTING X 3 DAYS, ABD PAIN ED Provider: Christopher Rueda Discharge Problem: Intractable nausea and vomiting, Leukocytosis, Gastrostomy present Forms Stand Alone Forms: [facility] [employer] Prescriptions Prescriptions: No Action sertraline 100 mg tablet 200 mg PO DAILY lorazepam 1 mg tablet 1 mg PO TID PRN (Reason: Anxiety) promethazine 25 mg Tablet 25 mg PO ACHS PRN (Reason: nausea) Qty: 180 0RF pantoprazole 40 mg tablet,delayed release (DR/EC) 40 mg PO DAILY Qty: 30 0RF cyclobenzaprine 5 mg tablet 5 mg PO Q8H PRN (Reason: muscle spasms) metoclopramide HCl 10 mg tablet 10 mg PO Q6H PRN (Reason: nausea and vomiting) Qty: 20 0RF Referrals Referrals: Joey Crockett MD [Primary Care Provider] - Discharge Problem: Leukocytosis Qualifiers: Leukocytosis type: unspecified Qualified Code(s): D72.829 - Elevated white blood cell count, unspecified
[2024-04-27 05:04] LABS: Hematocrit (blood only) 46.5 % (37.0-47.0); Hemoglobin 15.6 g/dl (12.0-16.0); Mean Corpuscular Hemoglobin 28.8 pg (25.0-34.0); Mean Corpuscular Hgb Conc 33.5 g/dL (32.0-36.0); Mean Corpuscular Volume 85.8 fL (80.0-100.0); Mean Platelet Volume 11.9 fL (9.4-12.4); Platelet Count 305 K/uL (130-400); RDW Coefficient of Variation 12.9 % (11.5-14.5); RDW Standard Deviation 39.8 fL (36.4-46.3); Red Blood Count 5.42 M/uL (4.20-5.40); White Blood Count 22.85 K/ul (4.8-10.8)
[2024-04-27 05:08] LABS: iSTAT Creatinine 0.5 mg/dl (0.6-1.3); iSTAT Hemoglobin 15.3 g/dl (12.0-16.0); iSTAT Ionized Calcium 1.1 mmol/l (1.12-1.32); iSTAT Potassium 4.2 mmol/L (3.3-5.0)
[2024-04-27] MEDS: OPTIRAY 320 100ml IV ONE (05:10)
[2024-04-27] MEDS: SODIUM CHLORIDE 0.9% 1,000 ML IV ONE (05:17)
[2024-04-27] MEDS: METOCLOPRAMIDE HCL INJ 5 MG/ML 2 ML VIAL IV ONE (05:17)
[2024-04-27] MEDS: diphenhydrAMINE 50 MG/ML VIAL IV STA (05:18)
[2024-04-27] MEDS: FAMOTIDINE 20MG IV PUSH 20 MG/5 ML SYR IV STA (05:20)
[2024-04-27 05:22] LABS: Albumin Globulin Ratio 1.6 (0.9-2); Albumin Level 4.7 gm/dl (3.4-5.0); BUN Creatinine Ratio 56.9 (10-20); Bilirubin,Total 0.4 mg/dl (0.2-1.0); Calcium 9.5 mg/dl (8.6-10.3); Creatinine Clr Calc Pharmacy 84.4 ml/min; Magnesium 1.8 mg/dl (1.7-2.4); Phosphorus 1.8 mg/dl (2.5-4.9); Potassium 3.9 mmol/L (3.5-5.1); Total Protein 7.7 gm/dl (6.0-8.3)
[2024-04-27] MEDS: CAPSAICIN CR 0.075% 60 GM TUBE EXT STA (05:22)
[2024-04-27] MEDS: ONDANSETRON INJ 2 MG/ML 2 ML VIAL IV STA (05:25)
[2024-04-27 05:28] LABS: Troponin I High Sensitivity 6.6 pg/ml (0-14)
--- NOTE | 2024-04-27 05:34 | CT Scan Report ---
Exam(s): CT ABDOMEN + PELVIS With Contrast IV Amt: 93 ml optiray 320 EXAM: CT Abdomen and Pelvis With Intravenous Contrast CLINICAL HISTORY: Reason for exam: abd, n/v. TECHNIQUE: Axial computed tomography images of the abdomen and pelvis with intravenous contrast. CTDI is 7.64 mGy and DLP is 353.73 mGy-cm. Automated exposure control was utilized for the study. A dose lowering technique was utilized adhering to the principles of ALARA. CONTRAST: Patient received 93 ml optiray 320 of IV contrast COMPARISON: February 24, 2024. FINDINGS: ABDOMEN: Liver: Unremarkable. No mass. Gallbladder and bile ducts: Cholecystectomy. No ductal dilation. Pancreas: Unremarkable. No mass. No ductal dilation. Spleen: Unremarkable. No splenomegaly. Adrenals: Unremarkable. No mass. Kidneys and ureters: Unremarkable. No solid mass. No hydronephrosis. Stomach and bowel: There has been interval surgery in the region of the upper rectum. There has been a previous gastric bypass. A gastrostomy tube is in the excluded stomach lumen. No obstruction. No mucosal thickening. PELVIS: Appendix: No findings to suggest acute appendicitis. Bladder: Unremarkable. No mass. Reproductive: Hysterectomy. ABDOMEN and PELVIS: Intraperitoneal space: Unremarkable. No free air. No significant fluid collection. Bones/joints: No acute findings. Soft tissues: Unremarkable. Vasculature: Unremarkable. No abdominal aortic aneurysm. Lymph nodes: Unremarkable. No enlarged lymph nodes. IMPRESSION: No acute findings in the abdomen or pelvis. Electronically signed by: Danis Giordano MD 04/27/24 05:33 AM
[2024-04-27 05:47] LABS: Basophils # (auto) 0.06 K/uL (0.00-0.20); Basophils % (auto) 0.3 %; Eosinophils # (auto) 0.04 K/uL (0.00-0.50); Eosinophils % (auto) 0.2 %; Immature Granulocytes # (auto) 0.13 K/uL (0.01-0.20); Immature Granulocytes % (auto) 0.6 %; Lymphocytes % (auto) 5.7 %; Monocytes % (auto) 3.1 %; Neutrophils # (auto) 20.62 K/uL (1.40-6.50); Neutrophils % (auto) 90.1 %
[2024-04-27 05:52] LABS: Prothrombin Time 10.5 Seconds (9.0-12.0)
[2024-04-27 05:56] LABS: Appearance Urine Clear (Clear); Bacteria Urine Automated None Seen (None Seen); Bilirubin Urine Negative (Negative); Blood Urine Negative (Negative); Color Urine Yellow; Epithelial Cell Urine Auto 0-2 /hpf (0-2); Glucose Urine UA 3+ (Negative); Granular Casts Urine Present /lpf (None Prsent); Ketones Urine Negative (Negative); Leukocyte Esterase Urine Negative (Negative); Nitrite Urine Negative (Negative); Protein Urine 1+ (Negative); RBC Urine Automated 0-2 /hpf (0-2); Uric Acid Crystals Urine Present (None Prsent); Urobilinogen Urine Negative (Negative); WBC Urine Automated 0-5 /hpf (0-5)
[2024-04-27 06:30] LABS: Adenovirus PCR Not Detected (NotDetected); Bordetella parapertussis PCR Not Detected (NotDetected); Bordetella pertussis PCR Not Detected (NotDetected); Chlamydia pneumoniae PCR Not Detected (NotDetected); Coronavirus 229E PCR Not Detected (NotDetected); Coronavirus CoV-2 (COVID19)PCR Not Detected (NotDetected); Coronavirus HKU1 PCR Not Detected (NotDetected); Coronavirus NL63 PCR Not Detected (NotDetected); Coronavirus OC43PCR Not Detected (NotDetected); Human Metapneumovirus PCR Not Detected (NotDetected); Influenza A PCR Not Detected (NotDetected); Influenza B PCR Not Detected (NotDetected); Mycoplasma pneumoniae PCR Not Detected (NotDetected); Parainfluenza Virus 1 PCR Not Detected (NotDetected); Parainfluenza Virus 2 PCR Not Detected (NotDetected); Parainfluenza Virus 3 PCR Not Detected (NotDetected); Parainfluenza Virus 4 PCR Not Detected (NotDetected); Respiratory Syncytial VirusPCR Not Detected (NotDetected); Rhinovirus/Enterovirus PCR Not Detected (NotDetected)
[2024-04-27] MEDS: HALOPERIDOL LACTATE 5 MG in SODIUM CHLORIDE 0.9% 500 ML IV STA (06:38)
--- NOTE | 2024-04-27 06:55 | XRay Report ---
XR chest 1V portable CLINICAL HISTORY: Abdominal pain, nausea and vomiting. COMPARISON STUDY: Chest CT 621. Chest radiograph November 13, 2023. FINDINGS: Lung volumes are normal. Lungs are clear. There is no pneumothorax or pleural effusion. Car diac size is normal. Mediastinal contours are normal. There is no evidence for pulmonary edema. IMPRESSION: No acute cardiopulmonary findings. ACT 112: Negative or not required by law. Electronically signed by: Lyle Romo M.D. 04/27/2024 6:54 AM
--- NOTE | 2024-04-27 08:04 | History & Physical Report ---
Date of Service April 27, 2024 Assessment & Plan (1) Intractable nausea and vomiting: Plan: 54-year-old female with past medical history significant for pulmonary embolism in 2018 currently not on anticoagulation, history of Maryuri-en-Y gastric bypass in 2020, history of left basal ganglia hemorrhagic CVA requiring craniectomy in October 2022 with eventual cranioplasty in March 2023, moderate protein calorie malnutrition and unintentional weight loss comes because of intractable nausea vomiting and abdominal pain. Per her feeding tube was changed about 3 months ago since then she is having some drainage and on and off bleeding from the feeding tube site and also abdominal pain since then. Last few days she having lot of nausea and vomiting. Because of persistent nausea vomiting she stopped tube feeding. She tried tube feeds last Saturday but the could not tolerate it. She is not taking p.o. currently because of nausea. Per she she was on lot of medications but currently she is taking only Reglan as needed and Zofran as needed. Having diarrhea. Per patient stools are black. Micturating okay. Denies any chest pain or shortness of breath. Having headaches. Vision is okay. Has runny nose for last couple of days. No sore throat or cough. No difficulty swallowing. Hemodynamics are okay. Patient admitted in August of 2023 with similar symptoms. Had EGD which was unremarkable and was thought her symptoms were mostly central in etiology. As per after 6-day of hospital stay lastn admit she was stabilized. At the time she was discharged on promethazine as needed and olanzapine. Intractable nausea and vomiting and abdominal pain Possible central cause Received Benadryl, Reglan and Zofran and haloperidol in the ER Continue IV Zofran as needed for now N.p.o. IV fluids Seems feeding tube has been changed 3 months ago and since then is having some drainage and on and off bleeding from the feeding tube site. CT abdomen pelvis no acute findings Will consult GI for further recommendations Leukocytosis Possible reactive UA negative Respiratory bio fire negative CT abdomen and pelvis unremarkable Chest x-ray unremarkable Will check stool for C. difficile and blood cultures Follow repeat labs Diarrhea Stool for C. difficile Stool for Hemoccult as patient states she has dark stools Moderate protein calorie malnutrition On tube feeds currently held for nausea and vomiting Dietitian consult History of hypothyroidism Not on meds Will follow TSH Hyperglycemia History of prediabetes Insulin sliding scale Will check HbA1c levels. Hypophosphatemia Will replace Follow labs DVT prophylaxis Heparin subcu Monitor for any bleeding Disposition Medical floor Full code. History of Present Illness Chief Complaint: Persistent nausea vomiting and abdominal pain Primary Care Provider: Joey Crockett MD 54-year-old female with past medical history significant for pulmonary embolism in 2017 currently not on anticoagulation, history of Maryuri-en-Y gastric bypass in 2020, history of left basal ganglia hemorrhagic CVA requiring craniectomy in October 2022 with eventual cranioplasty in March 2023, moderate protein calorie malnutrition and unintentional weight loss comes because of intractable nausea vomiting and abdominal pain. Per her feeding tube was changed about 3 months ago since then she is having some drainage and on and off bleeding from the feeding tube site and also abdominal pain since then. Last few days she having lot of nausea and vomiting. Because of persistent nausea vomiting she stopped tube feeding. She tried tube feeds last Saturday but the could not tolerate it. She is not taking p.o. currently because of nausea. Per she she was on lot of medications but currently she is taking only Reglan as needed and Zofran as needed. Having diarrhea. Per patient stools are black. Micturating okay. Denies any chest pain or shortness of breath. Having headaches. Vision is okay. Has runny nose for last couple of days. No sore throat or cough. No difficulty swallowing. Hemodynamics are okay. Patient admitted in August of 2023 with similar symptoms. Had EGD which was unremarkable and was thought her symptoms were mostly central in etiology. As per after 6-day of hospital stay lastn admit she was stabilized. At the time she was discharged on promethazine as needed and olanzapine. Past medical history. As mentioned above and depression, hyperkalemia, prediabetes, history of sleep apnea, GERD, post gastric surgery syndrome, history of dysplastic nevus. Past surgical history. Bilateral breast enhancement. Colonoscopy. Cystourethroscopy. EGD. Laparoscopic gastrotomy without reconstruction of gastric tube. Laparoscopic gastric Maryuri-en-Y bypass. Laparoscopic appendectomy. Partial removal of colon for diverticulitis. Laparoscopic cholecystectomy. Injection of sacroiliac joint. Small bowel endoscopy. Social history. . Quit smoking 2003. Smoked 0.3 packs a day for 16 years. No alcohol use. No drug use. Has medical marijuana card. Family history. Paternal grandfather had prostate cancer. Maternal grandfather had [place]. Maternal grandmother had stroke. Father has CAD. Hypertension. Mother has high cholesterol. Allergies Allergy/AdvReac Type Severity Reaction Status Date / Time No Known Allergies Allergy Verified 02/24/24 11:06 Home Medications Medication Instructions Recorded Confirmed Type metoclopramide HCl 10 mg tablet 10 mg PO TID PRN Nausea And 04/27/24 04/27/24 History Vomiting ondansetron 4 mg disintegrating 4 mg PO TID PRN Nausea And Vomiting 04/27/24 04/27/24 History tablet Past Med/Surg History Problem List (Updated 04/27/24 @ 07:01 by Christopher Rueda MD) Gastrostomy present (Acute) Leukocytosis (Acute) Intractable nausea and vomiting (Acute) Unintentional weight loss Moderate protein-calorie malnutrition History of hemorrhagic cerebrovascular accident (CVA) with residual deficit occasional exp aphasia ESTEBAN (obstructive sleep apnea) (Chronic) GERD (gastroesophageal reflux disease) (Chronic) Depression (Chronic) Anxiety Medical History Pulmonary embolism Endometriosis Hemorrhagic stroke Surgical History History of Maryuri-en-Y gastric bypass H/O wisdom tooth extraction History of partial colectomy History of hysterectomy Hx of cholecystectomy History of appendectomy H/O craniotomy Social History Smoking Status: Former smoker Tobacco Type: E-cigarettes / Vaping Hx Substance Use: No Preferred Language: Micronesian 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 Ability: Effective 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 ENT- oropharynx clear Neck- supple, no JVD. Lungs- clear to auscultation no wheezing or crackles Heart- regular rhythm; no murmur, no gallop. Abdomen- normal bowel sounds, soft, nontender, no distension. Gastrotomy tube site mild drainage seen. Extremities- no pretibial edema, no erythema seen Neuro- alert, oriented PERRL, no facial palsy; no dysarthria; moves extremities. Results & Data Results & Data Vital Signs (Past 12 Hours) Vital Signs Temp Pulse Pulse Resp BP BP Pulse Ox 04/27/24 06:41 84 18 150/92 H 98 04/27/24 04:47 97 H 04/27/24 04:37 99 04/27/24 04:27 36.4 C L 109 H 166/91 H 98 O2 Del Method 04/27/24 06:41 Room Air 04/27/24 04:47 04/27/24 04:37 Room Air 04/27/24 04:27 Room Air Diagnostic Findings Laboratory Results WBC 22.85 K/ul (4.8-10.8) H 04/27/24 04:45 RBC 5.42 M/uL (4.20-5.40) H 04/27/24 04:45 Hgb 15.6 g/dl (12.0-16.0) 04/27/24 04:45 POC Hgb 15.3 g/dl (12.0-16.0) 04/27/24 04:54 Hct 46.5 % (37.0-47.0) 04/27/24 04:45 POC Hct 45 % (37-47) 04/27/24 04:54 MCV 85.8 fL (80.0-100.0) 04/27/24 04:45 MCH 28.8 pg (25.0-34.0) 04/27/24 04:45 MCHC 33.5 g/dL (32.0-36.0) 04/27/24 04:45 RDW Std Deviation 39.8 fL (36.4-46.3) 04/27/24 04:45 RDW Coeff of Aysha 12.9 % (11.5-14.5) 04/27/24 04:45 Plt Count 305 K/uL (130-400) 04/27/24 04:45 MPV 11.9 fL (9.4-12.4) 04/27/24 04:45 Immature Gran % (Auto) 0.6 % 04/27/24 04:45 Neut % (Auto) 90.1 % 04/27/24 04:45 Lymph % (Auto) 5.7 % 04/27/24 04:45 [place] % (Auto) 3.1 % 04/27/24 04:45 Eos % (Auto) 0.2 % 04/27/24 04:45 Baso % (Auto) 0.3 % 04/27/24 04:45 Neut # (Auto) 20.62 K/uL (1.40-6.50) H 04/27/24 04:45 Lymph # (Auto) 1.30 K/uL (1.20-3.40) 04/27/24 04:45 [place] # (Auto) 0.70 K/uL (0.11-0.59) H 04/27/24 04:45 Eos # (Auto) 0.04 K/uL (0.00-0.50) 04/27/24 04:45 Baso # (Auto) 0.06 K/uL (0.00-0.20) 04/27/24 04:45 Immature Gran # (Auto) 0.13 K/uL (0.01-0.20) 04/27/24 04:45 PT 10.5 Seconds (9.0-12.0) 04/27/24 04:45 INR 1.0 (0.9-1.1) 04/27/24 04:45 POC Sodium 135 mmol/L (135-144) 04/27/24 04:54 Sodium 135 mmol/L (136-145) L 04/27/24 04:45 POC Potassium 4.2 mmol/L (3.3-5.0) 04/27/24 04:54 Potassium 3.9 mmol/L (3.5-5.1) 04/27/24 04:45 POC Chloride 101 mmol/L (101-112) 04/27/24 04:54 Chloride 100 mmol/L (98-107) 04/27/24 04:45 Carbon Dioxide 26 mmol/L (21-32) 04/27/24 04:45 POC Total CO2 24 mmol/L (24-31) 04/27/24 04:54 Anion Gap 9 (3-11) 04/27/24 04:45 POC Anion Gap 16.0 mmol/L (16-25) 04/27/24 04:54 POC BUN 36 mg/dl (7-18) H 04/27/24 04:54 BUN 33 mg/dl (6-23) H 04/27/24 04:45 Creatinine 0.58 mg/dl (0.6-1.2) L 04/27/24 04:45 POC Creatinine 0.5 mg/dl (0.6-1.3) L 04/27/24 04:54 Est Cr Clr Drug Dosing 84.4 ml/min 04/27/24 04:45 eGFR 107.47 04/27/24 04:45 BUN/Creatinine Ratio 56.9 (10-20) H 04/27/24 04:45 Glucose 201 mg/dl (70-99(Fasting)) H 04/27/24 04:45 POC Glucose (other) 206 mg/dl (70-99) H 04/27/24 04:54 Calcium 9.5 mg/dl (8.6-10.3) 04/27/24 04:45 POC Ioniz Calcium [place] 1.10 mmol/l (1.12-1.32) L 04/27/24 04:54 Phosphorus 1.8 mg/dl (2.5-4.9) L 04/27/24 04:45 Magnesium 1.8 mg/dl (1.7-2.4) 04/27/24 04:45 Total Bilirubin 0.4 mg/dl (0.2-1.0) 04/27/24 04:45 Direct Bilirubin 0.0 mg/dl (0-0.2) 04/27/24 04:45 AST 18 U/L (13-39) 04/27/24 04:45 ALT 11 U/L (7-52) 04/27/24 04:45 Alkaline Phosphatase 105 U/L (34-104) H 04/27/24 04:45 Troponin I High Sens 6.6 pg/ml (0-14) 04/27/24 04:45 Total Protein 7.7 gm/dl (6.0-8.3) 04/27/24 04:45 Albumin 4.7 gm/dl (3.4-5.0) 04/27/24 04:45 Globulin 3.0 gm/dl (2.5-4.0) 04/27/24 04:45 Albumin/Globulin Ratio 1.6 (0.9-2) 04/27/24 04:45 Lipase 20 U/L (11-82) 04/27/24 04:45 Urine Color Yellow 04/27/24 04:45 Urine Appearance Clear (Clear) 04/27/24 04:45 Urine pH 5.0 (4.5-7.5) 04/27/24 04:45 Ur Specific [place] 1.030 (1.000-1.030) 04/27/24 04:45 Urine Protein 1+ (Negative) H 04/27/24 04:45 Urine Glucose (UA) 3+ (Negative) H 04/27/24 04:45 Urine Ketones Negative (Negative) 04/27/24 04:45 Urine Blood Negative (Negative) 04/27/24 04:45 Urine Nitrite Negative (Negative) 04/27/24 04:45 Urine Bilirubin Negative (Negative) 04/27/24 04:45 Urine Urobilinogen Negative (Negative) 04/27/24 04:45 Ur Leukocyte Esterase Negative (Negative) 04/27/24 04:45 Urine WBC (Auto) 0-5 /hpf (0-5) 04/27/24 04:45 Urine RBC (Auto) 0-2 /hpf (0-2) 04/27/24 04:45 U Hyaline Cast (Auto) 6-10 /lpf (0-2) H 04/27/24 04:45 U Epithel Cells (Auto) 0-2 /hpf (0-2) 04/27/24 04:45 Urine Bacteria (Auto) None Seen (None Seen) 04/27/24 04:45 Uric Acid Crystals Present (None Prsent) A 04/27/24 04:45 Granular Casts Present /lpf (None Prsent) A 04/27/24 04:45 Adenovirus (PCR) Not Detected (NotDetected) 04/27/24 Unknown B. pertussis DNA (PCR) Not Detected (NotDetected) 04/27/24 Unknown B.parapertussis DNA PCR Not Detected (NotDetected) 04/27/24 Unknown C. pneumoniae DNA (PCR) Not Detected (NotDetected) 04/27/24 Unknown Coronavirus OC43 (PCR) Not Detected (NotDetected) 04/27/24 Unknown Coronavirus HKU1 (PCR) Not Detected (NotDetected) 04/27/24 Unknown Coronavirus 229E (PCR) Not Detected (NotDetected) 04/27/24 Unknown SARS-CoV-2 (PCR) Not Detected (NotDetected) 04/27/24 Unknown Coronavirus NL63 (PCR) Not Detected (NotDetected) 04/27/24 Unknown Human Metapneumovir PCR Not Detected (NotDetected) 04/27/24 Unknown Influenza Type A (PCR) Not Detected (NotDetected) 04/27/24 Unknown Influenza Type B (PCR) Not Detected (NotDetected) 04/27/24 Unknown M. pneumoniae (PCR) Not Detected (NotDetected) 04/27/24 Unknown Parainfluenza 1 (PCR) Not Detected (NotDetected) 04/27/24 Unknown Parainfluenza 2 (PCR) Not Detected (NotDetected) 04/27/24 Unknown Parainfluenza 3 (PCR) Not Detected (NotDetected) 04/27/24 Unknown Parainfluenza 4 (PCR) Not Detected (NotDetected) 04/27/24 Unknown RSV (PCR) Not Detected (NotDetected) 04/27/24 Unknown Entero/Rhino (PCR) Not Detected (NotDetected) 04/27/24 Unknown Impressions Abdomen/Pelvis CT 04/27/24 04:39 Exam(s): CT ABDOMEN + PELVIS With Contrast IV Amt: 93 ml optiray 320 EXAM: CT Abdomen and Pelvis With Intravenous Contrast CLINICAL HISTORY: Reason for exam: abd, n/v. TECHNIQUE: Axial computed tomography images of the abdomen and pelvis with intravenous contrast. CTDI is 7.64 mGy and DLP is 353.73 mGy-cm. Automated exposure control was utilized for the study. A dose lowering technique was utilized adhering to the principles of ALARA. CONTRAST: Patient received 93 ml optiray 320 of IV contrast COMPARISON: February 24, 2024. FINDINGS: ABDOMEN: Liver: Unremarkable. No mass. Gallbladder and bile ducts: Cholecystectomy. No ductal dilation. Pancreas: Unremarkable. No mass. No ductal dilation. Spleen: Unremarkable. No splenomegaly. Adrenals: Unremarkable. No mass. Kidneys and ureters: Unremarkable. No solid mass. No hydronephrosis. Stomach and bowel: There has been interval surgery in the region of the upper rectum. There has been a previous gastric bypass. A gastrostomy tube is in the excluded stomach lumen. No obstruction. No mucosal thickening. PELVIS: Appendix: No findings to suggest acute appendicitis. Bladder: Unremarkable. No mass. Reproductive: Hysterectomy. ABDOMEN and PELVIS: Intraperitoneal space: Unremarkable. No free air. No significant fluid collection. Bones/joints: No acute findings. Soft tissues: Unremarkable. Vasculature: Unremarkable. No abdominal aortic aneurysm. Lymph nodes: Unremarkable. No enlarged lymph nodes. IMPRESSION: No acute findings in the abdomen or pelvis. Electronically signed by: Danis Giordano MD 04/27/24 05:33 AM Chest X-Ray 04/27/24 04:39 XR chest 1V portable CLINICAL HISTORY: Abdominal pain, nausea and vomiting. COMPARISON STUDY: Chest CT 621. Chest radiograph November 13, 2023. FINDINGS: Lung volumes are normal. Lungs are clear. There is no pneumothorax or pleural effusion. Cardiac size is normal. Mediastinal contours are normal. There is no evidence for pulmonary edema. IMPRESSION: No acute cardiopulmonary findings. ACT 112: Negative or not required by law. Electronically signed by: Lyle Romo M.D. 04/27/2024 6:54 AM Code Status & VTE Plan VTE Prophylaxis Plan VTE Prophylaxis will be ordered: Yes
[2024-04-27] MEDS: MoRPHine SULFATE 4 MG/ML 1 ML CARP\\VIAL IV STA (09:47)
[2024-04-27] MEDS ORDERED: GLUCOSE 10 TAB/TUBE PO PRN (11:36)
[2024-04-27] MEDS ORDERED: GLUCOSE 40% GEL 15 GM TUBE PO PRN (11:36)
[2024-04-27] MEDS ORDERED: SODIUM PHOSPHATE 3 MMOL/1 ML INFUSION IV STA (11:36)
[2024-04-27] MEDS ORDERED: ACETAMINOPHEN 1,000 MG/100 ML VIAL IV PRN (11:36)
[2024-04-27] MEDS ORDERED: DEXTROSE 50% 50 ML SYRINGE IV PRN (11:36)
[2024-04-27] MEDS ORDERED: CARBOHYDRATES FOR HYPOGLYCEMIA PO PRN (11:36)
[2024-04-27] MEDS ORDERED: GLUCAGON FOR INJ 1 MG VIAL SQ PRN (11:36)
[2024-04-27] MEDS: SODIUM CHLORIDE 0.9% 1,000 ML IV SCH (11:47)
[2024-04-27] MEDS: INSULIN ASPART PER UNIT CHARGE SC SCH (11:51)
[2024-04-27] MEDS ORDERED: TPN/PPN CONSULT PHARMACY STA (12:42)
[2024-04-27] MEDS: HEPARIN SOD 5,000 UNIT/0.5 ML VIAL SQ SCH (12:46)
[2024-04-27] MEDS: POT PHOSPHATE MONOBASIC W/ SOD TAB PO SCH (12:49)
[2024-04-27] MEDS ORDERED: TPN/PPN CONSULT PHARMACY PRN (12:54)
--- NOTE | 2024-04-27 13:25 | Gastrointestinal Consultation ---
Date of Consultation April 27, 2024 Assessment & Plan (1) Intractable nausea and vomiting: -Antiemetics prn -Supportive care -Patient appears to have had this tube placed at [facility] through their IR department due to lack of desire to eat. It appears as though no underlying gastrointestinal pathology has been identified to explain her intermittent episodes of nausea & vomiting. Supervising Physician Co-Signing Physician Notes I examined the patient and reviewed patient's chart , laboratory data and imaging studies. I agree with with assessment and plan of care as suggested by advanced practice provider. Recurrent vomiting of unclear etiology, possibly central due to prior basal ganglia hemorrhagic stroke in 2022. Status post gastrostomy tube placed by IR into the excluded stomach. The patient is having difficulty tolerating feedings. Complains of abdominal pain, asking for pain medications. For now would continue IV hydration, antiemetics. History of Present Illness Reason for Consultation: "intractable nausea & vomiting" Attending Physician: Zulay Askew MD History of Present Illness Patient is a 54 yo female with PMH for PE, Maryuri-en-Y gastric bypass in 2020, L basal ganglia hemorrhagic CVA requiring craniectomy in October 2022 and cranioplasty in 2022, moderate protein calorie malnutrition, and unintentional weight loss that presented to the ED due to nausea, vomiting, & abdominal pain. She has a history of Maryuri-en-Y and multiple abdominal surgeries and due to nausea & vomiting has had a GI work-up by [facility] in the past. EGD in August 2023 for same issue without notable abnormalities. She notes she was in her usual state of health until last week when she developed nausea. She notes she has vomited multiple times but mainly feels that she is dry-heaving at this point. She has a feeding tube. I am unclear where/when this was placed but she notes [facility] did this. She does not know if it was placed endoscopically or IR. She takes Reglan & Zofran at home. She notes intermittent dark stools. She notes after her last admission for similar issues, she felt well and was stable when she was getting promethazine. H/H stable. She is prescribed Reglan & Zofran outpatient. CT abdomen/pelvis unremarkable. had reported some leaking around gastric tube site. Patient notes she is not having issues with tube feeds, but occasionally has discharge at the wound site. Allergies Allergy/AdvReac Type Severity Reaction Status Date / Time No Known Allergies Allergy Verified 02/24/24 11:06 Home Medications Medication Instructions Recorded Confirmed Type metoclopramide HCl 10 mg tablet 10 mg PO TID PRN Nausea And 04/27/24 04/27/24 History Vomiting ondansetron 4 mg disintegrating 4 mg PO TID PRN Nausea And Vomiting 04/27/24 04/27/24 History tablet Patient History Medical History Pulmonary embolism Endometriosis Hemorrhagic stroke Surgical History History of Maryuri-en-Y gastric bypass H/O wisdom tooth extraction History of partial colectomy History of hysterectomy Hx of cholecystectomy History of appendectomy H/O craniotomy Social History Smoking Status: Former smoker Tobacco Type: E-cigarettes / Vaping Hx Substance Use: No Preferred Language: Yi 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 Ability: Effective 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 Beliefs That Will Affect Care: None Current Living Situation: Spouse Feels Safe at Home: Yes Assistive Devices: None Review of Systems 2 Constitutional: no fever and no chills Gastrointestinal: + nausea and + vomiting Physical Exam Constitutional: well developed Respiratory: normal respiratory effort Gastrointestinal (Abdomen): gastric tube in place No tenderness, normal bowel sounds Psychiatric: Orientation: alert and oriented x 3 Results & Data Vital Signs (Past 12 Hours) Vital Signs Temp Pulse Pulse Resp BP BP Pulse Ox 04/27/24 11:36 82 20 126/96 98 04/27/24 11:00 77 20 96 04/27/24 11:00 78 04/27/24 09:11 37 C 80 20 141/91 H 96 04/27/24 06:41 84 18 150/92 H 98 04/27/24 04:47 97 H 04/27/24 04:37 99 04/27/24 04:27 36.4 C L 109 H 166/91 H 98 O2 Del Method 04/27/24 11:36 Room Air 04/27/24 11:00 Room Air 04/27/24 11:00 04/27/24 09:11 Room Air 04/27/24 06:41 Room Air 04/27/24 04:47 04/27/24 04:37 Room Air 04/27/24 04:27 Room Air PG Care Time/CCT Total # of Minutes Spent Total Time Spent with Patient: Total time spent is greater than 50% in coordination of care (as documented) at patient's floor/unit and/or counseling patient: Coding Level of Care Code 04780 IN/OBS CONSULT LVL 4,60M Diagnoses Intractable nausea and vomiting R11.2
[2024-04-27] MEDS ORDERED: DEXTROSE 10% 1,000 ML IV PRN (13:38)
[2024-04-27] MEDS: SODIUM PHOSPHATE 15 MMOL in SODIUM CHLORIDE 0.9% 250 ML IV ONE (14:25)
[2024-04-27] MEDS: MoRPHine SULFATE 4 MG/ML 1 ML CARP\\VIAL IV PRN (15:07)
[2024-04-27] MEDS: ONDANSETRON INJ 2 MG/ML 2 ML VIAL IV PRN (15:07)
--- NOTE | 2024-04-27 15:17 | Pharmacy Report ---
Pharmacy Initial PN Consult Nt - Date of Service April 27, 2024 - Scope Pharmacy has been consulted on this date to manage parenteral nutrition orders and order appropriate labs. As part of the Nutrition Support Team Guidelines, pharmacy will work in conjunction with dietary when determining the patients caloric needs. - Subjective * The patient is a 54 year old Female admitted on 04/27/24 for INTRACTABLE NAUSEA AND VOMITING. * Patient is to receive parenteral nutrition for intractable nausea/vomiting w/ tube feeds on hold for last several days. - Objective Vascular Access: * Patient currently has a peripheral line. * Peripheral line was confirmed by IV Team to be acceptable for PPN use. Height & Weight (Last Documented) Height 5 ft 4 in Weight 48.2 kg Diet Order(s) 04/27/24 11:36 NPO Intake & Ouput (24hrs) 04/26/24 04/27/24 04/28/24 06:59 06:59 06:59 Intake Total 1000 / 1000 501 / 501 Balance 1000 / 1000 501 / 501 Selected Laboratory Results 04/27/24 04:45 Sodium 135 L Potassium 3.9 Chloride 100 Carbon Dioxide 26 Anion Gap 9 BUN 33 H Creatinine 0.58 L BUN/Creatinine Ratio 56.9 H Glucose 201 H Calcium 9.5 Phosphorus 1.8 L Magnesium 1.8 Total Bilirubin 0.4 AST 18 ALT 11 Alkaline Phosphatase 105 H - Assessment & Plan Assessment: * MH is a 54 year old female with complicated GI history (s/p multiple surgeries) now requiring use of tube feeds. * Patient presents with intractable nausea/vomiting. Dietary consulted for tube feeds, but they are recommending PPN at this time. * Appreciate dietitians recommendations for macronutrients. * Patient is currently ordered IV thiamine 200 mg BID. Will leave out of PN at this time. * Phosphorus of 1.8 mg/dL today, repleted with 15 mmol IV sodium phosphate prior to PN Plan: * For Day #1 of PPN administration, the following will be ordered: * Macronutrients: * Amino Acids: 43 grams/day * Dextrose: 50 grams/day * hold lipids * Micronutrients: * TPN electrolytes: 20 mL/day - Contains 35 mEq Na, 20 mEq K, 4.5 mEq Ca, 5 mEq Mg, 35 mEq Cl, 29.5 mEq Acetate per 20 mL * Sodium chloride: 40 mEq/day * Potassium phosphate: 15 mMol/day * Potassium acetate: 10 mEq/day * Magnesium sulfate: 4.06 mEq/day * Multivitamins: 10 mL/day * Trace elements: 1 mL/day * Total volume of 1058 mL will be infused over 24 hours and will provide 342 kcal/day * Patient is on PPN which has a maximum mOsm/L of 900. Final osmolarity of current solution is 888 mOsm/L. * Labs will be ordered per PN protocol. * Pharmacy will follow and adjust PN orders on a daily basis. Thank you!
[2024-04-27] MEDS: PERIPHERAL TPN IV SCH (16:40)
[2024-04-27] MEDS: [UNRECOGNIZED DRUG - OTHER] IV SCH (16:40)
[2024-04-27] MEDS: ACETAMINOPHEN 325 MG TAB PO PRN (17:38)
[2024-04-27] MEDS: PANTOprazole 40 MG/10 ML SYR IV SCH (20:37)
[2024-04-27] MEDS: THIAMINE HCL 200 MG in SODIUM CHLORIDE 0.9% 50 ML IV SCH (20:37)
[2024-04-28] MEDS: LORazepam 0.5 MG TAB PO PRN (06:10)
[2024-04-28 06:20] LABS: Basophils # (auto) 0.04 K/uL (0.00-0.20); Basophils % (auto) 0.6 %; Eosinophils # (auto) 0.07 K/uL (0.00-0.50); Hematocrit (blood only) 35.7 % (37.0-47.0); Hemoglobin 11.9 g/dl (12.0-16.0); Immature Granulocytes # (auto) 0.02 K/uL (0.01-0.20); Immature Granulocytes % (auto) 0.3 %; Lymphocytes # (auto) 2.53 K/uL (1.20-3.40); Lymphocytes % (auto) 35.7 %; Mean Corpuscular Hemoglobin 29.2 pg (25.0-34.0); Mean Corpuscular Hgb Conc 33.3 g/dL (32.0-36.0); Mean Corpuscular Volume 87.7 fL (80.0-100.0); Mean Platelet Volume 11.6 fL (9.4-12.4); Monocytes # (auto) 0.71 K/uL (0.11-0.59); Neutrophils # (auto) 3.72 K/uL (1.40-6.50); Neutrophils % (auto) 52.4 %; Platelet Count 164 K/uL (130-400); RDW Standard Deviation 41.3 fL (36.4-46.3); Red Blood Count 4.07 M/uL (4.20-5.40); White Blood Count 7.09 K/ul (4.8-10.8)
[2024-04-28 06:35] LABS: Calcium 8.6 mg/dl (8.6-10.3); Creatinine Clr Calc Pharmacy 98.5 ml/min; Phosphorus 2.8 mg/dl (2.5-4.9); Potassium 3.9 mmol/L (3.5-5.1); Thyroid Stimulating Hormone 0.415 uIu/ml (0.300-4.500)
[2024-04-28 08:13] LABS: Estimated Average Glucose 103 mg/dl; Hemoglobin A1C 5.2 % (4.5-5.6)
--- NOTE | 2024-04-28 11:27 | Gastroenterology Progress Note ---
Date of Service April 28, 2024 Assessment & Plan (1) Intractable nausea and vomiting: Plan: -Continue supportive care with antiemetics -OK to resume tube feeds when able Admission and Anticipated Discharge Date Admission Date: April 27, 2024 Supervising Physician Co-Signing Physician Notes I examined the patient and reviewed patient's chart , laboratory data and imaging studies. I agree with with assessment and plan of care as suggested by advanced practice provider Subjective Patient is a 54 yo female with nausea/vomiting. She notes one episode of vomiting this AM around 4 AM. No further episodes. Her tube feeds are held at present. She notes abdominal discomfort. CT abd/pelvis unremarkable. She notes she feels like she is going to move her bowels today. Review of Systems Gastrointestinal: + abdominal pain and + nausea Physical Exam Constitutional: well developed Respiratory: normal respiratory effort Gastrointestinal (Abdomen): Inspection/Auscultation: abdomen normal to inspection Percussion/Palpation: + abdomen tender and abdomen soft Results & Data Results & Data Vital Signs (Past 12 Hours) Vital Signs Temp Pulse Resp BP Pulse Ox O2 Del Method 04/28/24 07:18 36.6 C 62 14 95/61 L 95 Room Air PG Care Time/CCT Total # of Minutes Spent Total Time Spent with Patient: Total time spent is greater than 50% in coordination of care (as documented) at patient's floor/unit and/or counseling patient: Coding Level of Care Code 53237 SUB INP/OBS CARE 2/35MIN Diagnoses Intractable nausea and vomiting R11.2
[2024-04-28] MEDS ORDERED: POT PHOSPHATE MONOBASIC W/ SOD TAB PO SCH (12:00)
[2024-04-28] MEDS: PROMETHAZINE 12.5 MG/50.5 ML BAG IV STA (12:04)
[2024-04-28] MEDS: bisacodyL 10 MG SUPP PR STA (13:59)
[2024-04-28] MEDS: PERIPHERAL TPN IV SCH (16:03)
[2024-04-28] MEDS: [UNRECOGNIZED DRUG - OTHER] IV SCH (16:03)
--- NOTE | 2024-04-28 16:17 | Hospitalist Progress Note ---
Date of Service April 28, 2024 Assessment & Plan (1) Intractable nausea and vomiting: Plan: Ms. 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 She states she has had hx of maryuri en y 3 years ago. She did well for 2 years until she had a hemorrhagic CVA requiring craniotomy. Since then she has been suffering from chronic nausea prompting the placement of a feeding tube 10/2023. She was on tube feeds and things were stable, but then after the exchange in 01/2024. After the tube was exchanged, she noted ongoing pain and discomfort. reports more food aversion, reclusive personality, and ongoing pain/nausea. #Intractable nausea and vomiting #abdominal pain Possible central cause Received Benadryl, Reglan and Zofran Continue IV Zofran and Phenergan Patient declines use of antipsychotic as she didn't like the way it felt, though it helped with nausea, patient worried "hand twitching" was from olanzipine GI: nothing to do at this time, resume tube feed as able Starting bentyl to see if alleviates cramping, patient reluctant for po despite drinking milk #Food aversion #Depressive symptoms concerned that some of the symptoms may be post-stroke psych related--noting more food aversion and quick to show prompt disgust, also noting that patient has become more withdrawn in last few months -Psych consult: any recommendations for mood stabilizer with noted effect on nausea not necessarily classified as antipsychotic--he notes that these symptoms may be overlapping with reported concerns and not sure if there is a mood component involved #Leukocytosis *resolved Possible reactive UA negative Respiratory bio fire negative CT abdomen and pelvis unremarkable Chest x-ray unremarkable Will check stool for C. difficile and blood cultures Follow repeat labs #Diarrhea Stool for C. difficile Stool for Hemoccult as patient states she has dark stools Moderate protein calorie malnutrition On tube feeds currently held for nausea and vomiting Dietitian consult #History of hypothyroidism Not on meds wnl #Hyperglycemia History of prediabetes a1c 5.2% #Hypophosphatemia Will replace Follow labs DVT prophylaxis Heparin subcu Monitor for any bleeding Disposition Medical floor Full code. Admission and Anticipated Discharge Date Admission Date: April 27, 2024 Subjective Patient looks much improved, however, still with abdominal pain Reports nothing helps--though again she is much improved overall clinically, her report of symptoms are there stating she cannot tolerate anything by mouth other than milk She feels cramping pain like she is constipated though she reported diarrhea previously Tried to confirm history from who states her symptoms worsened after IR placement of feeding tube Physical Exam Constitutional: sitting up right, sipping milk Respiratory: normal respiratory effort, lungs clear to auscultation Cardiovascular: RRR, no murmur, no edema Gastrointestinal (Abdomen): gastric tube in place, no leaking noted no discharge noted Results & Data Results & Data Vital Signs (Past 12 Hours) Vital Signs Temp Pulse Resp BP Pulse Ox O2 Del Method 04/28/24 07:18 36.6 C 62 14 95/61 L 95 Room Air Laboratory Results Short CBC 04/28/24 Range/Units 05:25 WBC 7.09 (4.8-10.8) K/ul Hgb 11.9 L D (12.0-16.0) g/dl Hct 35.7 L (37.0-47.0) % Plt Count 164 (130-400) K/uL BMP 04/28/24 05:25 Sodium 138 Potassium 3.9 Chloride 104 Carbon Dioxide 29 BUN 11 D Creatinine 0.50 L Glucose 99 Calcium 8.6 Medications Administered Home Medications Medication Instructions Recorded Confirmed Last Taken metoclopramide HCl 10 mg tablet 10 mg PO TID PRN Nausea And 04/27/24 04/27/24 Unknown Vomiting ondansetron 4 mg disintegrating 4 mg PO TID PRN Nausea And Vomiting 04/27/24 04/27/24 Unknown tablet Active Medications Generic Name Dose Route Start Last Admin Trade Name Freq PRN Reason Stop Dose Admin Acetaminophen 650 mg 04/27/24 12:48 04/27/24 17:38 Acetaminophen 325 Mg Tab PO 05/27/24 12:47 650 mg Q8H PRN Administration Pain Heparin Sodium (Porcine) 5,000 units 04/27/24 11:36 04/28/24 08:43 Heparin Sod 5,000 Unit/0.5 Ml Vial SQ 05/27/24 11:35 5,000 units Q12 CASANDRA Administration Thiamine HCl 200 mg/ Sodium 52 mls @ 210 mls/hr 04/27/24 21:00 04/28/24 09:38 Chloride IV 04/29/24 20:59 Infused Q12 CASANDRA Infusion Pantoprazole Sodium 40 mg in 10 mls @ 5 mls/min 04/27/24 21:00 04/28/24 08:42 Protonix IV 05/27/24 20:59 5 mls/min BID CASANDRA Administration Amino Acids 1,059 ml/ 1,059 mls @ 44.1 mls/hr 04/28/24 16:00 04/28/24 16:03 Nutrition (Parenteral) IV 04/29/24 15:59 44.1 mls/hr .Q24H CASANDRA Administration Protocol Insulin Aspart 0 units 04/27/24 12:00 04/28/24 12:01 Insulin Aspart Per Unit Charge SC 05/27/24 11:59 Not Given Q6 CASANDRA Lorazepam 0.5 mg 04/28/24 06:04 04/28/24 06:10 Lorazepam 0.5 Mg Tab PO 05/28/24 06:03 0.5 mg BID PRN Administration Anxiety Morphine Sulfate 3 mg 04/27/24 11:36 04/28/24 12:37 Morphine Sulfate 4 Mg/Ml 1 Ml Carp\\Vial IV 05/11/24 11:35 3 mg Q4H PRN Administration Severe Pain (Scale 7, 8, 9,10) Ondansetron HCl 4 mg 04/27/24 11:36 04/28/24 08:35 Ondansetron Inj 2 Mg/Ml 2 Ml Vial IV 05/27/24 11:35 4 mg Q6H PRN Administration Nausea
[2024-04-28] MEDS: KETOROLAC TROMETHAMINE 15 MG/ML VIAL IV ONE (16:27)
[2024-04-28] MEDS: ACETAMINOPHEN 500 MG TAB PO SCH (16:50)
[2024-04-28] MEDS: DICYCLOMINE HCL 10 MG CAP PO ONE (16:50)
[2024-04-28] MEDS: MoRPHine SULFATE 4 MG/ML 1 ML CARP\\VIAL IV PRN (16:54)
[2024-04-28] MEDS: MoRPHine SULFATE 2 MG/ML CARP IV STA (19:40)
[2024-04-28] MEDS: PROMETHAZINE 6.25 MG/50.25 ML BAG IV PRN (19:41)
[2024-04-28] MEDS: DICYCLOMINE HCL 10 MG CAP PO SCH (20:16)
[2024-04-29] MEDS: MoRPHine SULFATE 4 MG/ML 1 ML CARP\\VIAL IV STA (00:49)
[2024-04-29 08:59] LABS: Hematocrit (blood only) 41.4 % (37.0-47.0); Hemoglobin 13.9 g/dl (12.0-16.0); Mean Corpuscular Hemoglobin 29.6 pg (25.0-34.0); Mean Corpuscular Hgb Conc 33.6 g/dL (32.0-36.0); Mean Corpuscular Volume 88.3 fL (80.0-100.0); Mean Platelet Volume 11.5 fL (9.4-12.4); Platelet Count 193 K/uL (130-400); RDW Coefficient of Variation 12.9 % (11.5-14.5); RDW Standard Deviation 41.2 fL (36.4-46.3); Red Blood Count 4.69 M/uL (4.20-5.40); White Blood Count 7.66 K/ul (4.8-10.8)
[2024-04-29 09:01] LABS: Albumin Level 4.3 gm/dl (3.4-5.0); Bilirubin,Total 0.4 mg/dl (0.2-1.0); Calcium 9.4 mg/dl (8.6-10.3); Magnesium 2.2 mg/dl (1.7-2.4); Potassium 4.1 mmol/L (3.5-5.1)
[2024-04-29 09:07] LABS: Albumin Globulin Ratio 1.7 (0.9-2); BUN Creatinine Ratio 24.1 (10-20); Creatinine Clr Calc Pharmacy 84.2 ml/min; Globulin 2.5 gm/dl (2.5-4.0); Phosphorus 3.5 mg/dl (2.5-4.9); Total Protein 6.8 gm/dl (6.0-8.3)
[2024-04-29] MEDS ORDERED: MoRPHine SULFATE 4 MG/ML 1 ML CARP\\VIAL IV PRN (11:37)
[2024-04-29] MEDS: FOSAPREPITANT DIMEGLUMINE 150 MG in SODIUM CHLORIDE 0.9% 145 ML IV ONE (12:08)
[2024-04-29] MEDS: MoRPHine SULFATE 4 MG/ML 1 ML CARP\\VIAL IV PRN (13:16)
[2024-04-29] MEDS ORDERED: Nursing to Pharmacy 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 SCH (13:30)
--- NOTE | 2024-04-29 13:37 | Psychiatric Consultation ---
Date of Consultation April 29, 2024 Impression / Recommendations Impression Increased emotional lability and depression in context of ongoing difficulties eating and weight loss. She attributes difficulty eating with change in taste, consistent with possible aliageusia. Seems that when she can't eat this then increases her psychic distress and symptoms of anxiety and depression due to fears that she won't be able to eat again or will continue to waste away. Discussed strategies to combat these cognitive spirals and she is open to therapy and medication trial. Given hx of gastric bypass would also recommend checking B12 and Zinc as deficiencies can impact taste. Acute risk of self-harm is low given denial of any active SI, strong supports, future-oriented and hopefully and open to increased outpatient supports. Chronic risk is moderate given periods of depression, anxiety and passive SI with worsening of chronic medical conditions. Reviewed medication options to help her mood and potential help reduce distress around eating which she would like to try. Na+ normal and QTc normal. Overall, I spent a total of 60 minutes with this case including review of chart records, review of labwork, review of EKG QTc, direct evaluation of the patient at bedside, counseling the patient, discussion of the patient with the hospitalist provider, discussion with the psychiatric liason during clinical rounds and documentation in the electronic health record. (1) Depression: (2) History of hemorrhagic cerebrovascular accident (CVA) with residual deficit: (3) Moderate protein-calorie malnutrition: (4) Unintentional weight loss: (5) Gastrostomy present: (6) Taste perversion: Plan -Would start mirtazapine 15mg HS po -Consider option for Seroquel 12.5mg TID prn prior to meals to help increase intake and reduce distress -If Seroquel is ineffective could consider dronabinol trial. -Would check Vit B12 and Zinc levels -Psych liason to give information about additional outpatient resources including psychiatry and therapy options Psych History Identifying Data 54 yo woman with hx of pulmonary embolism in 2017, Maryuri-en-Y gastric bypass in 2020, left basal ganglia hemorrhagic CVA requiring craniectomy in October 2022 with eventual cranioplasty in March 2023, moderate protein calorie malnutrition and unintentional weight loss comes because of intractable nausea vomiting and abdominal pain admitted medically. Psychiatry consulted due to concerns for depression and possible anxiety impacting food aversions. Chief Complaint "Food tastes off". History of Present Illness Aleah reports improvement in nausea but still with difficulty eating due to severe taste aversion. Gives example of previously liking the taste of eggs and she is hungry, they will smell good, she'll take a bit and then the eggs taste awful and nothing like she remembers them and then she can't eat anymore. She wants help finding something to help with this. Trial of olanzapine in the past (August 2023 during inpt admission of 5mg ODT) but she did not tolerate due to muscle twitching. Currently endorses some depression and anxiety related to fears of not being able to maintain her weight despite feeding tube and other efforts to improve nutrition. Reports at times she has passive SI of not wanting to wake up but denies current SI and cites good supports and is future-oriented and hopeful about improving and getting better. She's very open to and appreciative of option to try outpatient therapy and psychiatry for additional supports. Recent script sent for sertraline 100mg but doesn't seem she started this yet. Unclear if she was taking this previously. Allergies Allergy/AdvReac Type Severity Reaction Status Date / Time No Known Allergies Allergy Verified 02/24/24 11:06 Home Medications Medication Instructions Recorded Confirmed Type metoclopramide HCl 10 mg tablet 10 mg PO TID PRN Nausea And 04/27/24 04/27/24 History Vomiting ondansetron 4 mg disintegrating 4 mg PO TID PRN Nausea And Vomiting 04/27/24 04/27/24 History tablet Patient History Medical History Pulmonary embolism Endometriosis Hemorrhagic stroke Surgical History History of Maryuri-en-Y gastric bypass H/O wisdom tooth extraction History of partial colectomy History of hysterectomy Hx of cholecystectomy History of appendectomy H/O craniotomy Social History Smoking Status: Current some day smoker Tobacco Type: E-cigarettes / Vaping Do You Dip or Chew Tobacco: No; Hx Alcohol Use: No Hx Substance Use: Yes Last Used Substance Other:: 2 months ago Substance Use Type Other:: medical marijuana Preferred Language: Faroese 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 Ability: Effective Ophthalmic Medical Technician Required: No Beliefs That Will Affect Care: None Current Living Situation: Spouse and Family Feels Safe at Home: Yes Assistive Devices: None Physical Exam Psychiatric: Orientation: alert and oriented x 3 Apperance: appropriately dressed and appropriately groomed Eye Contact: good eye contact Motor Behavior: no abnormal motor movements Speech: normal rate/rhythm/volume of speech Affect: + anxious affect Mood: + depressed mood and + anxious mood Thought Process: goal directed thought process Thought Content: reality based without delusions Suicidal Thoughts: denies suicidal plan and denies suicidal intent; + reports suicidal thoughts (passive SI at times, denies any active SI) Homicidal Thoughts: denies homicidal thoughts Hallucinations: no auditory hallucinations and no visual hallucinations Cognition: attention grossly intact and language grossly intact Estimated Intelligence: consistent with education level Insight: + limited insight Judgment: + fair judgement Vital Signs (Past 24 Hours): Last Vital Signs Temp 36.9 C 04/29/24 07:40 Pulse 55 L 04/29/24 07:40 Resp 16 04/29/24 07:40 BP 109/74 04/29/24 07:40 Pulse Ox 98 04/29/24 07:40 O2 Del Method Room Air 04/29/24 07:40 Results & Data (PSY) Medications Administered Acetaminophen (Acetaminophen 500 Mg Tab) 1,000 mg PO Q8H [facility] Stop: 05/28/24 16:59 Last Admin: 04/29/24 09:37 Dose: 1,000 mg Documented By: Admin: 04/29/24 00:18 Dose: 1,000 mg Documented By: Admin: 04/28/24 16:50 Dose: Not Given Documented By: CHAO Dicyclomine HCl (Dicyclomine Hcl 10 Mg Cap) 10 mg PO QID CASANDRA Stop: 05/28/24 20:59 Last Admin: 04/29/24 12:09 Dose: 10 mg Documented By: Admin: 04/29/24 09:36 Dose: 10 mg Documented By: Admin: 04/28/24 20:16 Dose: 10 mg Documented By: ANG Heparin Sodium (Porcine) (Heparin Sod 5,000 Unit/0.5 Ml Vial) 5,000 units SQ Q12 CASANDRA Stop: 05/27/24 11:35 Last Admin: 04/29/24 09:37 Dose: 5,000 units Documented By: Admin: 04/28/24 20:15 Dose: Not Given Documented By: Admin: 04/28/24 08:43 Dose: 5,000 units Documented By: Admin: 04/27/24 20:37 Dose: 5,000 units Documented By: Admin: 04/27/24 12:46 Dose: 5,000 units Documented By: SARAN Thiamine HCl 200 mg/ Sodium (Chloride) 52 mls @ 210 mls/hr IV Q12 CASANDRA Stop: 04/29/24 20:59 Last Infusion: 04/29/24 10:21 Dose: Infused Documented By: Admin: 04/29/24 09:36 Dose: 210 mls/hr Documented By: Infusion: 04/28/24 20:34 Dose: Infused Documented By: Admin: 04/28/24 20:16 Dose: 210 mls/hr Documented By: Infusion: 04/28/24 09:38 Dose: Infused Documented By: Admin: 04/28/24 08:42 Dose: 210 mls/hr Documented By: Infusion: 04/27/24 20:52 Dose: Infused Documented By: Admin: 04/27/24 20:37 Dose: 210 mls/hr Documented By: TIFFANY Pantoprazole Sodium (Protonix) 40 mg in 10 mls @ 5 mls/min IV BID CASANDRA Stop: 05/27/24 20:59 Last Admin: 04/29/24 09:37 Dose: 5 mls/min Documented By: Admin: 04/28/24 20:20 Dose: 5 mls/min Documented By: Admin: 04/28/24 08:42 Dose: 5 mls/min Documented By: Admin: 04/27/24 20:37 Dose: 5 mls/min Documented By: TIFFANY Amino Acids 1,059 ml/ (Nutrition (Parenteral)) 1,059 mls @ 44.1 mls/hr IV .Q24H CASANDRA; Protocol Stop: 04/29/24 15:59 Last Admin: 04/28/24 16:03 Dose: 44.1 mls/hr Documented By: CHAO Co-signed By: MIKALA Promethazine HCl (Phenergan) 6.25 mg in 50.25 mls @ 201 mls/hr IV Q6H PRN PRN Reason: Nausea And Vomiting Stop: 05/28/24 17:20 Last Infusion: 04/29/24 05:47 Dose: Infused Documented By: Admin: 04/29/24 05:20 Dose: 201 mls/hr Documented By: Infusion: 04/28/24 20:34 Dose: Infused Documented By: Admin: 04/28/24 19:41 Dose: 201 mls/hr Documented By: ANG Insulin Aspart (Insulin Aspart Per Unit Charge) 0 units SC Q6 CASANDRA Stop: 05/27/24 11:59 Last Admin: 04/29/24 12:01 Dose: Not Given Documented By: Admin: 04/29/24 06:15 Dose: Not Given Documented By: ANG Co-signed By: MINA Admin: 04/29/24 00:18 Dose: Not Given Documented By: ANG Co-signed By: MINA Admin: 04/28/24 18:33 Dose: Not Given Documented By: Admin: 04/28/24 12:01 Dose: Not Given Documented By: Admin: 04/28/24 06:07 Dose: Not Given Documented By: Co-signed By: CHANCE Admin: 04/28/24 00:05 Dose: Not Given Documented By: Co-signed By: BEN Admin: 04/27/24 17:32 Dose: Not Given Documented By: Admin: 04/27/24 11:51 Dose: Not Given Documented By: SARAN Lorazepam (Lorazepam 0.5 Mg Tab) 0.5 mg PO BID PRN PRN Reason: Anxiety Stop: 05/28/24 06:03 Last Admin: 04/28/24 06:10 Dose: 0.5 mg Documented By: Morphine Sulfate (Morphine Sulfate 4 Mg/Ml 1 Ml Carp\\Vial) 2 mg IV Q3H PRN PRN Reason: Severe Pain (Scale 7, 8, 9,10) Stop: 05/13/24 11:36 Last Admin: 04/29/24 13:16 Dose: 2 mg Documented By: MGEHNA Ondansetron HCl (Ondansetron Inj 2 Mg/Ml 2 Ml Vial) 4 mg IV Q6H PRN PRN Reason: Nausea Stop: 05/27/24 11:35 Last Admin: 04/29/24 10:40 Dose: 4 mg Documented By: Admin: 04/28/24 08:35 Dose: 4 mg Documented By: Admin: 04/27/24 15:07 Dose: 4 mg Documented By: ANUEL Coding Level of Care Code 94578 IN/OBS CONSULT LVL 4,60M Diagnoses Depression F32.9 History of hemorrhagic cerebrovascular accident (CVA) with residual deficit I69.30 Moderate protein-calorie malnutrition E44.0 Unintentional weight loss R63.4 Gastrostomy present Z93.1 Taste perversion R43.2
[2024-04-29] MEDS: POLYETHYLENE (MIRALAX) 17 GM PACK PO PRN (15:44)
[2024-04-29] MEDS: PERIPHERAL TPN IV SCH (16:11)
[2024-04-29] MEDS: [UNRECOGNIZED DRUG - OTHER] IV SCH (16:11)
--- NOTE | 2024-04-29 16:49 | Hospitalist Progress Note ---
Date of Service April 29, 2024 Assessment & Plan (1) Intractable nausea and vomiting: Plan: Ms. 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 She states she has had hx of maryuri en y 3 years ago. She did well for 2 years until she had a hemorrhagic CVA requiring craniotomy. Since then she has been suffering from chronic nausea prompting the placement of a feeding tube 10/2023. She was on tube feeds and things were stable, but then after the exchange in 01/2024. After the tube was exchanged, she noted ongoing pain and discomfort. reports more food aversion, reclusive personality, and ongoing pain/nausea. Intractable nausea and vomiting Abdominal pain --H/O Maryuri-en-Y gastric bypass in 2020 --CT ABD:No acute findings in the abdomen or pelvis. --Normal lipase --possible central cause Continue IV Zofran and Phenergan PRN Patient declines use of antipsychotic as she didn't like the way it felt, though it helped with nausea, patient worried "hand twitching" was from olanzipine Appreciate GI input: Conservative management, okay to resume tube feeds Will give a dose of Emend today Started on tube feeds as tolerated May need to follow-up with her surgeon as outpatient Food aversion Depression concerned that some of the symptoms may be post-stroke psych related--noting more food aversion and quick to show prompt disgust, also noting that patient has become more withdrawn in last few months Appreciate psychiatry input Will start on mirtazapine 15 mg at bedtime Check vitamin B12, zinc levels Consider adding Seroquel as needed if needed Leukocytosis Possible reactive UA negative Respiratory bio fire negative CT abdomen and pelvis unremarkable Chest x-ray unremarkable Will check stool for C. difficile and blood cultures Follow repeat labs Diarrhea Stool studies pending KUB pending Moderate protein calorie malnutrition Resume tube feeds as tolerated Appreciate dietitian consult History of hypothyroidism Not on meds Normal TSH Hyperglycemia History of prediabetes Hba1c 5.2% Hypophosphatemia Replace and monitor DVT Px: Heparin SQ CODE STATUS Full code. Admission and Anticipated Discharge Date Admission Date: April 27, 2024 Subjective Patient is seen and examined at bedside Reports having ongoing nausea, vomiting, abdominal pain Denies any chest pain, dyspnea No other complaints Review of Systems Review of Systems: All systems reviewed & are unremarkable except as noted in Subjective Physical Exam Physical Exam: Physical Exam: Vitals signs as noted above General Appearance: Thin, frail, no apparent distress Head: normocephalic, Atraumatic Eyes: normal inspection, EOMI Neck: supple, Trachea midline Respiratory/Chest: Normal breath sounds, CTA, No accessory muscle use Cardiovascular: S1, S2, No murmur Abdomen/GI:Soft, mild tender,+ PEG tube, no guarding, rigidity, bowel sounds present Extremities/Musculoskeletal:normal inspection, no edema Neurologic/Psych:AAOX3, grossly no focal neurological deficits Skin: normal color, warm Results & Data Results & Data Vital Signs (Past 12 Hours) Vital Signs Temp Pulse Resp BP BP Pulse Ox O2 Del Method 04/29/24 15:27 36.6 C 58 L 16 114/77 97 Room Air 04/29/24 07:40 36.9 C 55 L 16 109/74 98 Room Air Laboratory Results Short CBC 04/29/24 Range/Units 08:30 WBC 7.66 (4.8-10.8) K/ul Hgb 13.9 (12.0-16.0) g/dl Hct 41.4 (37.0-47.0) % Plt Count 193 (130-400) K/uL BMP 04/29/24 08:30 Sodium 140 Potassium 4.1 Chloride 104 Carbon Dioxide 33 H BUN 14 Creatinine 0.58 L Glucose 106 H Calcium 9.4 Liver Function 04/29/24 Range/Units 08:30 Total Bilirubin 0.4 (0.2-1.0) mg/dl AST 14 (13-39) U/L ALT 8 (7-52) U/L Alkaline Phosphatase 59 (34-104) U/L Albumin 4.3 (3.4-5.0) gm/dl
--- NOTE | 2024-04-29 16:57 | XRay Report ---
KUB CLINICAL HISTORY: Generalized abdominal pain. Constipation. FINDINGS: An AP, portable, supine abdominal radiograph is compared to study dated 11/13/2023 and corre lated with abdominal CT dated 04/27/2024. A gastrostomy tube projects over the upper abdomen. There i s mild gaseous distention of the colon. No bowel obstruction is seen. No evidence of intraperitoneal free air is seen on this supine image. Mild/moderate fecal retention is noted in the right colon. The re are no abnormal abdominal calcifications. Cholecystectomy clips are noted in the right upper quadr ant. Suture material seen projects over the left upper quadrant and pelvis. The bony structures appea r intact. IMPRESSION: Mild gaseous distention of the colon with no evidence of bowel obstruction. Electronically signed by: Joe Corado M.D. 04/29/2024 4:55 PM
[2024-04-29] MEDS: MIRTAZAPINE TAB 15 MG TAB PO SCH (20:11)
[2024-04-29] MEDS: PEPTAMEN 1.5 CAL 1,000 ML BAG GT SCH (20:30)
[2024-04-30 06:13] LABS: BUN Creatinine Ratio 26.9 (10-20); Calcium 8.9 mg/dl (8.6-10.3); Creatinine Clr Calc Pharmacy 72.9 ml/min; Magnesium 2.1 mg/dl (1.7-2.4); Phosphorus 3.9 mg/dl (2.5-4.9); Potassium 4.5 mmol/L (3.5-5.1)
[2024-04-30] MEDS ORDERED: HYDROmorphone INJ 0.5 MG/0.5 ML SYR IV PRN (11:33)
[2024-04-30] MEDS: QUEtiapine FUMARATE 25 MG TABLET PO PRN (12:22)
[2024-04-30] MEDS: TUBE FEEDING WATER FLUSH GT SCH (13:12)
[2024-04-30] MEDS: HYDROmorphone INJ 0.5 MG/0.5 ML SYR IV PRN (13:24)
--- NOTE | 2024-04-30 15:40 | Hospitalist Progress Note ---
Date of Service April 30, 2024 Assessment & Plan (1) Intractable nausea and vomiting: Plan: Ms. 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 She states she has had hx of maryuri en y 3 years ago. She did well for 2 years until she had a hemorrhagic CVA requiring craniotomy. Since then she has been suffering from chronic nausea prompting the placement of a feeding tube 10/2023. She was on tube feeds and things were stable, but then after the exchange in 01/2024. After the tube was exchanged, she noted ongoing pain and discomfort. reports more food aversion, reclusive personality, and ongoing pain/nausea. Intractable nausea and vomiting Abdominal pain --H/O Maryuri-en-Y gastric bypass in 2020 --CT ABD:No acute findings in the abdomen or pelvis. --Normal lipase --possible central cause Continue IV Zofran and Phenergan PRN Patient declines use of antipsychotic as she didn't like the way it felt, though it helped with nausea, patient worried "hand twitching" was from olanzipine Appreciate GI input: Conservative management, okay to resume tube feeds Received Emend Tolerating tube feeds PPN discontinued May need to follow-up with her surgeon as outpatient Minimize IV narcotics as able Food aversion Depression concerned that some of the symptoms may be post-stroke psych related--noting more food aversion and quick to show prompt disgust, also noting that patient has become more withdrawn in last few months Appreciate psychiatry input Will start on mirtazapine 15 mg at bedtime Added Seroquel as needed Normal vitamin B-12 levels Zinc levels pending Leukocytosis Possible reactive UA negative Respiratory bio fire negative CT abdomen and pelvis unremarkable Chest x-ray unremarkable Leukocytosis resolved Diarrhea KUB noncontributory Obtain stool studies if recurrence of diarrhea Monitor Moderate protein calorie malnutrition Resume tube feeds as tolerated Appreciate dietitian consult History of hypothyroidism Not on meds Normal TSH Hyperglycemia History of prediabetes Hba1c 5.2% Hypophosphatemia Replace and monitor DVT Px: Heparin SQ CODE STATUS Full code. Admission and Anticipated Discharge Date Admission Date: April 27, 2024 Subjective Patient is seen and examined at bedside Reports persistent nausea, intermittent abdominal pain No vomiting today Tolerating tube feeds Denies any chest pain, dyspnea Review of Systems Review of Systems: All systems reviewed & are unremarkable except as noted in Subjective Physical Exam Physical Exam: Physical Exam: Vitals signs as noted above General Appearance: Thin, frail, no apparent distress Head: normocephalic, Atraumatic Eyes: normal inspection, EOMI Neck: supple, Trachea midline Respiratory/Chest: Normal breath sounds, CTA, No accessory muscle use Cardiovascular: S1, S2, No murmur Abdomen/GI:Soft, mild tender,+ PEG tube, no guarding, rigidity, bowel sounds present Extremities/Musculoskeletal:normal inspection, no edema Neurologic/Psych:AAOX3, grossly no focal neurological deficits Skin: normal color, warm Results & Data Results & Data Vital Signs (Past 12 Hours) Vital Signs Temp Pulse Resp BP Pulse Ox O2 Del Method 04/30/24 15:22 36.7 C 62 16 110/70 96 Room Air 04/30/24 07:58 36.6 C 60 16 118/70 97 Room Air Laboratory Results [facility] 04/30/24 05:27 Sodium 140 Potassium 4.5 Chloride 104 Carbon Dioxide 31 BUN 18 Creatinine 0.67 Glucose 97 Calcium 8.9
--- NOTE | 2024-04-30 19:42 | 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 Note ---
Date of Service: April 30, 2024 RN requesting for clarification of new order from dietitian for tube feed rate to be increased tonight to 40 mL/hr from 1999 to 08. Ongoing tube feeds at 20 cc/hr since a.m. from last night inadvertently not halted at 8 AM today as per RN. Dr. Velasquez recommended continuing current TF rate of 20 cc/hr overnight (1999 to 0800). Implement recommended 40 cc/hr TF rate starting tomorrow night (05/01, 1999 to 799).
[2024-04-30] MEDS ORDERED: PEPTAMEN 1.5 CAL 1,000 ML BAG GT SCH (20:00)
[2024-05-01 07:19] LABS: BUN Creatinine Ratio 23.5 (10-20); Calcium 9.3 mg/dl (8.6-10.3); Creatinine Clr Calc Pharmacy 75.8 ml/min; Magnesium 2.1 mg/dl (1.7-2.4); Phosphorus 3.9 mg/dl (2.5-4.9); Potassium 4.3 mmol/L (3.5-5.1)
[2024-05-01 12:20] LABS: Adenovirus F 40/41 PCR Not Detected (NotDetected); Astrovirus PCR Not Detected (NotDetected); Campylobacter PCR Not Detected (NotDetected); Cryptosporidium PCR Not Detected (NotDetected); Cyclospora cayetanensis PCR Not Detected (NotDetected); Entamoeba histolytica PCR Not Detected (NotDetected); Enteroaggregative E.coli(EAEC) Not Detected (NotDetected); Enteropathogenic E.coli (EPEC) Not Detected (NotDetected); Enterotoxigenic E.coli (ETEC) Not Detected (NotDetected); Giardia lamblia PCR Not Detected (NotDetected); Norovirus GI/GII PCR Not Detected (NotDetected); Plesiomonas shigelloides PCR Not Detected (NotDetected); Rotavirus A PCR Not Detected (NotDetected); Salmonella PCR Not Detected (NotDetected); Sapovirus PCR Not Detected (NotDetected); Shiga-like Toxin E.coli (STEC) Not Detected (NotDetected); Shigella/Enteroinvasive E.coli Not Detected (NotDetected); Vibrio cholerae PCR Not Detected (NotDetected); Vibrio species PCR Not Detected (NotDetected); Yersinia enterocolitica PCR Not Detected (NotDetected)
[2024-05-01] MEDS: SERTRALINE HCL 100 MG TABLET PO SCH (12:43)
[2024-05-01] MEDS: POLYETHYLENE (MIRALAX) 17 GM PACK PO SCH (12:49)
--- NOTE | 2024-05-01 15:13 | Hospitalist Progress Note ---
Date of Service May 01, 2024 Assessment & Plan (1) Intractable nausea and vomiting: Plan: Ms. 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 She states she has had hx of maryuri en y 3 years ago. She did well for 2 years until she had a hemorrhagic CVA requiring craniotomy. Since then she has been suffering from chronic nausea prompting the placement of a feeding tube 10/2023. She was on tube feeds and things were stable, but then after the exchange in 01/2024. After the tube was exchanged, she noted ongoing pain and discomfort. reports more food aversion, reclusive personality, and ongoing pain/nausea. Intractable nausea and vomiting Abdominal pain --H/O Maryuri-en-Y gastric bypass in 2020 --CT ABD:No acute findings in the abdomen or pelvis. --Normal lipase --possible central cause Continue IV Zofran and Phenergan PRN Patient declines use of antipsychotic as she didn't like the way it felt, though it helped with nausea, patient worried "hand twitching" was from olanzipine Appreciate GI input: Conservative management, okay to resume tube feeds Received Emend Tolerating tube feeds PPN discontinued May need to follow-up with her surgeon as outpatient Minimize IV narcotics as able Goal to gradually increase tube feedings up to 85 mL/h x 12 hours/day or until 1L infused with Nutren 1.5. Run tube feeds overnight from 8PM until 8AM. Continue water flushes: 60 mL before and after tube feeds, additional 120 mL free water flushes 6x/day Slowly improving Food aversion Depression concerned that some of the symptoms may be post-stroke psych related--noting more food aversion and quick to show prompt disgust, also noting that patient has become more withdrawn in last few months Appreciate psychiatry input Resume home sertraline Will start on mirtazapine 15 mg at bedtime Added Seroquel as needed Normal vitamin B-12 levels Zinc levels pending Leukocytosis Possible reactive UA negative Respiratory bio fire negative CT abdomen and pelvis unremarkable Chest x-ray unremarkable Leukocytosis resolved Diarrhea--likely overflow KUB noncontributory Obtain stool studies if recurrence of diarrhea Bowel regimen to prevent constipation Monitor Moderate protein calorie malnutrition Resume tube feeds as tolerated Appreciate dietitian consult History of hypothyroidism Not on meds Normal TSH Hyperglycemia History of prediabetes Hba1c 5.2% Hypophosphatemia Replace and monitor DVT Px: Heparin SQ CODE STATUS Full code. Admission and Anticipated Discharge Date Admission Date: April 27, 2024 Subjective Patient is seen and examined at bedside Less nausea, abdominal pain after bowel movement today Tolerating tube feeds No new complaints Denies any chest pain, dyspnea Review of Systems Review of Systems: All systems reviewed & are unremarkable except as noted in Subjective Physical Exam Physical Exam: Physical Exam: Vitals signs as noted above General Appearance: Thin, frail, no apparent distress Head: normocephalic, Atraumatic Eyes: normal inspection, EOMI Neck: supple, Trachea midline Respiratory/Chest: Normal breath sounds, CTA, No accessory muscle use Cardiovascular: S1, S2, No murmur Abdomen/GI:Soft, mild tender,+ PEG tube, no guarding, rigidity, bowel sounds present Extremities/Musculoskeletal:normal inspection, no edema Neurologic/Psych:AAOX3, grossly no focal neurological deficits Skin: normal color, warm Results & Data Results & Data Vital Signs (Past 12 Hours) Vital Signs Temp Pulse Resp BP Pulse Ox O2 Del Method 05/01/24 13:47 36.7 C 61 16 127/84 99 Room Air 05/01/24 07:37 36.5 C 63 14 117/79 98 Room Air Laboratory Results [facility] 05/01/24 06:36 Sodium 141 Potassium 4.3 Chloride 106 Carbon Dioxide 32 BUN 16 Creatinine 0.68 Glucose 95 Calcium 9.3
[2024-05-01] MEDS: PEPTAMEN 1.5 CAL 1,000 ML BAG GT SCH (20:35)
--- NOTE | 2024-05-02 12:58 | Hospitalist Progress Note ---
Date of Service May 02, 2024 Assessment & Plan (1) Intractable nausea and vomiting: Plan: Ms. 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 She states she has had hx of maryuri en y 3 years ago. She did well for 2 years until she had a hemorrhagic CVA requiring craniotomy. Since then she has been suffering from chronic nausea prompting the placement of a feeding tube 10/2023. She was on tube feeds and things were stable, but then after the exchange in 01/2024. After the tube was exchanged, she noted ongoing pain and discomfort. reports more food aversion, reclusive personality, and ongoing pain/nausea. Intractable nausea and vomiting Abdominal pain --H/O Maryuri-en-Y gastric bypass in 2020 --CT ABD:No acute findings in the abdomen or pelvis. --Normal lipase --possible central cause Continue IV Zofran and Phenergan PRN Patient declines use of antipsychotic as she didn't like the way it felt, though it helped with nausea, patient worried "hand twitching" was from olanzipine Appreciate GI input: Conservative management, okay to resume tube feeds Received Emend Tolerating tube feeds PPN discontinued May need to follow-up with her surgeon as outpatient Titrate down IV narcotics as able Goal to gradually increase tube feedings up to 85 mL/h x 12 hours/day or until 1L infused with Nutren 1.5. Run tube feeds overnight from 8PM until 8AM. Continue water flushes: 60 mL before and after tube feeds, additional 120 mL magdalene e water flushes 6x/day Advance diet as tolerated Food aversion Depression concerned that some of the symptoms may be post-stroke psych related--noting more food aversion and quick to show prompt disgust, also noting that patient has become more withdrawn in last few months Appreciate psychiatry input Resume home sertraline continue mirtazapine 15 mg at bedtime Added Seroquel as needed Normal vitamin B-12 levels Zinc levels pending Leukocytosis Possible reactive UA negative Respiratory bio fire negative CT abdomen and pelvis unremarkable Chest x-ray unremarkable Leukocytosis resolved Diarrhea--likely overflow KUB noncontributory Obtain stool studies if recurrence of diarrhea Bowel regimen to prevent constipation Monitor Moderate protein calorie malnutrition Resume tube feeds as tolerated Appreciate dietitian consult History of hypothyroidism Not on meds Normal TSH Hyperglycemia History of prediabetes Hba1c 5.2% Hypophosphatemia Replace and monitor DVT Px: Heparin SQ CODE STATUS Full code. Admission and Anticipated Discharge Date Admission Date: April 27, 2024 Subjective Patient is seen and examined at bedside Tolerated tube feeds overnight Reports feeling better but still has some nausea and abdominal pain Requests to advance diet No other complaints today Review of Systems Review of Systems: All systems reviewed & are unremarkable except as noted in Subjective Physical Exam Physical Exam: Physical Exam: Vitals signs as noted above General Appearance: Thin, frail, no apparent distress Head: normocephalic, Atraumatic Eyes: normal inspection, EOMI Neck: supple, Trachea midline Respiratory/Chest: Normal breath sounds, CTA, No accessory muscle use Cardiovascular: S1, S2, No murmur Abdomen/GI:Soft, mild tender,+ PEG tube, no guarding, rigidity, bowel sounds present Extremities/Musculoskeletal:normal inspection, no edema Neurologic/Psych:AAOX3, grossly no focal neurological deficits Skin: normal color, warm Results & Data Results & Data Vital Signs (Past 12 Hours) Vital Signs Temp Pulse Resp BP Pulse Ox O2 Del Method 05/02/24 07:09 36.7 C 66 18 134/84 97 Room Air
[2024-05-02 15:12] VITALS: RESP 16
[2024-05-02] MEDS: HYDROmorphone INJ 0.5 MG/0.5 ML SYR IV PRN (15:45)
[2024-05-03] MEDS: KETOROLAC TROMETHAMINE 15 MG/ML VIAL IV ONE (06:20)
[2024-05-03 07:59] VITALS: O2SAT 96
[2024-05-03 08:30] LABS: BUN Creatinine Ratio 32.8 (10-20); Calcium 9.2 mg/dl (8.6-10.3); Potassium 4.5 mmol/L (3.5-5.1)
--- NOTE | 2024-05-03 11:07 | Hospitalist Progress Note ---
Date of Service May 03, 2024 Assessment & Plan (1) Intractable nausea and vomiting: Plan: Ms. 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 She states she has had hx of maryuri en y 3 years ago. She did well for 2 years until she had a hemorrhagic CVA requiring craniotomy. Since then she has been suffering from chronic nausea prompting the placement of a feeding tube 10/2023. She was on tube feeds and things were stable, but then after the exchange in 01/2024. After the tube was exchanged, she noted ongoing pain and discomfort. reports more food aversion, reclusive personality, and ongoing pain/nausea. Intractable nausea and vomiting Abdominal pain --H/O Maryuri-en-Y gastric bypass in 2020 --CT ABD:No acute findings in the abdomen or pelvis. --Normal lipase --possible central cause Continue IV Zofran and Phenergan PRN Patient declines use of antipsychotic as she didn't like the way it felt, though it helped with nausea, patient worried "hand twitching" was from olanzipine Appreciate GI input: Conservative management, okay to resume tube feeds Received Emend Tolerating tube feeds PPN discontinued May need to follow-up with her surgeon as outpatient Titrate down IV narcotics as able Goal to gradually increase tube feedings up to 85 mL/h x 12 hours/day or until 1L infused with Nutren 1.5. Run tube feeds overnight from 8PM until 8AM. Continue water flushes: 60 mL before and after tube feeds, additional 120 mL magdalene e water flushes 6x/day Tolerating oral intake Prefers to be discharged home today Advised to follow-up with gastroenterology/surgeon as outpatient Food aversion Depression concerned that some of the symptoms may be post-stroke psych related--noting more food aversion and quick to show prompt disgust, also noting that patient has become more withdrawn in last few months Appreciate psychiatry input Resume home sertraline continue mirtazapine 15 mg at bedtime Added Seroquel as needed Normal vitamin B-12 levels Zinc levels pending Leukocytosis Possible reactive UA negative Respiratory bio fire negative CT abdomen and pelvis unremarkable Chest x-ray unremarkable Leukocytosis resolved Diarrhea--likely overflow KUB noncontributory Obtain stool studies if recurrence of diarrhea Bowel regimen to prevent constipation Monitor Resolved Moderate protein calorie malnutrition Resume tube feeds as tolerated Appreciate dietitian consult History of hypothyroidism Not on meds Normal TSH Hyperglycemia History of prediabetes Hba1c 5.2% Hypophosphatemia Replace and monitor DVT Px: Heparin SQ CODE STATUS Full code. Admission and Anticipated Discharge Date Admission Date: April 27, 2024 Subjective Patient is seen and examined at bedside No new complaints Nausea but no vomiting intermittently Abdominal pain is better Tolerating tube feeds Able to tolerate oral intake as well Prefers to be discharged home today Denies any chest pain, dyspnea Review of Systems Review of Systems: All systems reviewed & are unremarkable except as noted in Subjective Physical Exam Physical Exam: Vitals signs as noted above General Appearance: Thin, frail, no apparent distress Head: normocephalic, Atraumatic Eyes: normal inspection, EOMI Neck: supple, Trachea midline Respiratory/Chest: Normal breath sounds, CTA, No accessory muscle use Cardiovascular: S1, S2, No murmur Abdomen/GI:Soft, + PEG tube, no guarding, rigidity, bowel sounds present Extremities/Musculoskeletal:normal inspection, no edema Neurologic/Psych:AAOX3, grossly no focal neurological deficits Skin: normal color, warm Results & Data Results & Data Vital Signs (Past 12 Hours) Vital Signs Temp Pulse Resp BP Pulse Ox O2 Del Method 05/03/24 07:58 36.5 C 77 16 117/66 96 Room Air Laboratory Results [facility] 05/03/24 07:37 Sodium 140 Potassium 4.5 Chloride 107 Carbon Dioxide 27 BUN 22 Creatinine 0.67 Glucose 120 H Calcium 9.2
--- NOTE | 2024-05-03 11:24 | Discharge Summary ---
Date of Service May 03, 2024 Admission HPI Per Admitting Provider 54-year-old female with past medical history significant for pulmonary embolism in 2018 currently not on anticoagulation, history of Salomón-en-Y gastric bypass in 2020, history of left basal ganglia hemorrhagic CVA requiring craniectomy in October 2022 with eventual cranioplasty in March 2023, moderate protein calorie malnutrition and unintentional weight loss comes because of intractable nausea vomiting and abdominal pain. Per her feeding tube was changed about 3 months ago since then she is having some drainage and on and off bleeding from the feeding tube site and also abdominal pain since then. Last few days she having lot of nausea and vomiting. Because of persistent nausea vomiting she stopped tube feeding. She tried tube feeds last Saturday but the could not tolerate it. She is not taking p.o. currently because of nausea. Per she she was on lot of medications but currently she is taking only Reglan as needed and Zofran as needed. Having diarrhea. Per patient stools are black. Micturating okay. Denies any chest pain or shortness of breath. Having headaches. Vision is okay. Has runny nose for last couple of days. No sore throat or cough. No difficulty swallowing. Hemodynamics are okay. Patient admitted in August of 2023 with similar symptoms. Had EGD which was unremarkable and was thought her symptoms were mostly central in etiology. As per after 6-day of hospital stay lastn admit she was stabilized. At the time she was discharged on promethazine as needed and olanzapine. Past medical history. As mentioned above and depression, hyperkalemia, prediabetes, history of sleep apnea, GERD, post gastric surgery syndrome, history of dysplastic nevus. Past surgical history. Bilateral breast enhancement. Colonoscopy. Cystourethroscopy. EGD. Laparoscopic gastrotomy without reconstruction of gastric tube. Laparoscopic gastric Salomón-en-Y bypass. Laparoscopic appendectomy. Partial removal of colon for diverticulitis. Laparoscopic cholecystectomy. Injection of sacroiliac joint. Small bowel endoscopy. Social history. . Quit smoking 2003. Smoked 0.3 packs a day for 16 years. No alcohol use. No drug use. Has medical marijuana card. Family history. Paternal grandfather had prostate cancer. Maternal grandfather had MD. Maternal grandmother had stroke. Father has CAD. Hypertension. Mother has high cholesterol. Admission Exam Per Admitting Provider General- Not in distress Head- atraumatic Eyes- PERRL,. ENT- oropharynx clear Neck- supple, no JVD. Lungs- clear to auscultation no wheezing or crackles Heart- regular rhythm; no murmur, no gallop. Abdomen- normal bowel sounds, soft, nontender, no distension. Gastrotomy tube site mild drainage seen. Extremities- no pretibial edema, no erythema seen Neuro- alert, oriented PERRL, no facial palsy; no dysarthria; moves extremities. Principal Diagnosis Intractable nausea and vomiting Possible irritable bowel syndrome Discharge Data Allergies Allergy/AdvReac Type Severity Reaction Status Date / Time No Known Allergies Allergy Verified 02/24/24 11:06 Consultations 04/27/24 05:49 ED Decision to Admit Stat 04/27/24 11:36 Consult Gastroenterology Routine 04/28/24 17:24 Consult Psychiatry Routine Procedures Performed Laboratory Results WBC 7.66 K/ul (4.8-10.8) 04/29/24 08:30 RBC 4.69 M/uL (4.20-5.40) 04/29/24 08:30 Hgb 13.9 g/dl (12.0-16.0) 04/29/24 08:30 POC Hgb 15.3 g/dl (12.0-16.0) 04/27/24 04:54 Hct 41.4 % (37.0-47.0) 04/29/24 08:30 POC Hct 45 % (37-47) 04/27/24 04:54 MCV 88.3 fL (80.0-100.0) 04/29/24 08:30 MCH 29.6 pg (25.0-34.0) 04/29/24 08:30 MCHC 33.6 g/dL (32.0-36.0) 04/29/24 08:30 RDW Std Deviation 41.2 fL (36.4-46.3) 04/29/24 08:30 RDW Coeff of Aysha 12.9 % (11.5-14.5) 04/29/24 08:30 Plt Count 193 K/uL (130-400) 04/29/24 08:30 MPV 11.5 fL (9.4-12.4) 04/29/24 08:30 Immature Gran % (Auto) 0.3 % 04/28/24 05:25 Neut % (Auto) 52.4 % 04/28/24 05:25 Lymph % (Auto) 35.7 % 04/28/24 05:25 Avery % (Auto) 10.0 % 04/28/24 05:25 Eos % (Auto) 1.0 % 04/28/24 05:25 Baso % (Auto) 0.6 % 04/28/24 05:25 Neut # (Auto) 3.72 K/uL (1.40-6.50) 04/28/24 05:25 Lymph # (Auto) 2.53 K/uL (1.20-3.40) 04/28/24 05:25 Avery # (Auto) 0.71 K/uL (0.11-0.59) H 04/28/24 05:25 Eos # (Auto) 0.07 K/uL (0.00-0.50) 04/28/24 05:25 Baso # (Auto) 0.04 K/uL (0.00-0.20) 04/28/24 05:25 Immature Gran # (Auto) 0.02 K/uL (0.01-0.20) 04/28/24 05:25 PT 10.5 Seconds (9.0-12.0) 04/27/24 04:45 INR 1.0 (0.9-1.1) 04/27/24 04:45 POC Sodium 135 mmol/L (135-144) 04/27/24 04:54 Sodium 140 mmol/L (136-145) 05/03/24 07:37 POC Potassium 4.2 mmol/L (3.3-5.0) 04/27/24 04:54 Potassium 4.5 mmol/L (3.5-5.1) 05/03/24 07:37 POC Chloride 101 mmol/L (101-112) 04/27/24 04:54 Chloride 107 mmol/L (98-107) 05/03/24 07:37 Carbon Dioxide 27 mmol/L (21-32) 05/03/24 07:37 POC Total CO2 24 mmol/L (24-31) 04/27/24 04:54 Anion Gap 6 (3-11) 05/03/24 07:37 POC Anion Gap 16.0 mmol/L (16-25) 04/27/24 04:54 POC BUN 36 mg/dl (7-18) H 04/27/24 04:54 BUN 22 mg/dl (6-23) 05/03/24 07:37 Creatinine 0.67 mg/dl (0.6-1.2) 05/03/24 07:37 POC Creatinine 0.5 mg/dl (0.6-1.3) L 04/27/24 04:54 Est Cr Clr Drug Dosing 77.0 ml/min 05/03/24 07:37 eGFR 103.80 05/03/24 07:37 BUN/Creatinine Ratio 32.8 (10-20) H 05/03/24 07:37 Glucose 120 mg/dl (70-99(Fasting)) H 05/03/24 07:37 POC Glucose 111 mg/dl (70-99) H 05/03/24 07:33 POC Glucose (other) 206 mg/dl (70-99) H 04/27/24 04:54 Estimat Average Glucose 103 mg/dl 04/28/24 05:25 Hemoglobin A1c 5.2 % (4.5-5.6) 04/28/24 05:25 Calcium 9.2 mg/dl (8.6-10.3) 05/03/24 07:37 POC Ioniz Calcium Barbara 1.10 mmol/l (1.12-1.32) L 04/27/24 04:54 Phosphorus 3.9 mg/dl (2.5-4.9) 05/01/24 06:36 Magnesium 2.1 mg/dl (1.7-2.4) 05/01/24 06:36 Total Bilirubin 0.4 mg/dl (0.2-1.0) 04/29/24 08:30 Direct Bilirubin 0.0 mg/dl (0-0.2) 04/27/24 04:45 AST 14 U/L (13-39) 04/29/24 08:30 ALT 8 U/L (7-52) 04/29/24 08:30 Alkaline Phosphatase 59 U/L (34-104) 04/29/24 08:30 Troponin I High Sens 6.6 pg/ml (0-14) 04/27/24 04:45 Total Protein 6.8 gm/dl (6.0-8.3) 04/29/24 08:30 Albumin 4.3 gm/dl (3.4-5.0) 04/29/24 08:30 Globulin 2.5 gm/dl (2.5-4.0) 04/29/24 08:30 Albumin/Globulin Ratio 1.7 (0.9-2) 04/29/24 08:30 Triglycerides 208 mg/dl (0-150) H 04/29/24 08:30 Lipase 20 U/L (11-82) 04/27/24 04:45 Vitamin B12 829 pg/ml (180-914) 04/30/24 05:27 TSH 0.415 uIu/ml (0.300-4.500) 04/28/24 05:25 Urine Color Yellow 04/27/24 04:45 Urine Appearance Clear (Clear) 04/27/24 04:45 Urine pH 5.0 (4.5-7.5) 04/27/24 04:45 Ur Specific [place] 1.030 (1.000-1.030) 04/27/24 04:45 Urine Protein 1+ (Negative) H 04/27/24 04:45 Urine Glucose (UA) 3+ (Negative) H 04/27/24 04:45 Urine Ketones Negative (Negative) 04/27/24 04:45 Urine Blood Negative (Negative) 04/27/24 04:45 Urine Nitrite Negative (Negative) 04/27/24 04:45 Urine Bilirubin Negative (Negative) 04/27/24 04:45 Urine Urobilinogen Negative (Negative) 04/27/24 04:45 Ur Leukocyte Esterase Negative (Negative) 04/27/24 04:45 Urine WBC (Auto) 0-5 /hpf (0-5) 04/27/24 04:45 Urine RBC (Auto) 0-2 /hpf (0-2) 04/27/24 04:45 U Hyaline Cast (Auto) 6-10 /lpf (0-2) H 04/27/24 04:45 U Epithel Cells (Auto) 0-2 /hpf (0-2) 04/27/24 04:45 Urine Bacteria (Auto) None Seen (None Seen) 04/27/24 04:45 Uric Acid Crystals Present (None Prsent) A 04/27/24 04:45 Granular Casts Present /lpf (None Prsent) A 04/27/24 04:45 Stl C. cayetanensis PCR Not Detected (NotDetected) 05/01/24 10:30 Stool Rotavirus A PCR Not Detected (NotDetected) 05/01/24 10:30 Stl Adenov F 40/41 PCR Not Detected (NotDetected) 05/01/24 10:30 Stool Astrovirus (PCR) Not Detected (NotDetected) 05/01/24 10:30 Stool Campylobacter PCR Not Detected (NotDetected) 05/01/24 10:30 Stool Cryptosporidium PCR Not Detected (NotDetected) 05/01/24 10:30 Stl E.coli Shiga Tox PCR Not Detected (NotDetected) 05/01/24 10:30 Stl Enterotoxigenic E PCR Not Detected (NotDetected) 05/01/24 10:30 Stool EPEC (PCR) Not Detected (NotDetected) 05/01/24 10:30 Stool EAEC (PCR) Not Detected (NotDetected) 05/01/24 10:30 Stl E. histolytica PCR Not Detected (NotDetected) 05/01/24 10:30 Stool Giardia Lamblia PCR Not Detected (NotDetected) 05/01/24 10:30 Stool Salmonella PCR Not Detected (NotDetected) 05/01/24 10:30 Stool Sapovirus (PCR) Not Detected (NotDetected) 05/01/24 10:30 Stl P. shigelloides PCR Not Detected (NotDetected) 05/01/24 10:30 Stl Shigella/EIEC PCR Not Detected (NotDetected) 05/01/24 10:30 St Y.enterocolitica PCR Not Detected (NotDetected) 05/01/24 10:30 Stool Vibrio (PCR) Not Detected (NotDetected) 05/01/24 10:30 Stl Vibrio cholerae PCR Not Detected (NotDetected) 05/01/24 10:30 Stl Norovirus GI/GII PCR Not Detected (NotDetected) 05/01/24 10:30 Adenovirus (PCR) Not Detected (NotDetected) 04/27/24 Unknown B. pertussis DNA (PCR) Not Detected (NotDetected) 04/27/24 Unknown B.parapertussis DNA PCR Not Detected (NotDetected) 04/27/24 Unknown C. pneumoniae DNA (PCR) Not Detected (NotDetected) 04/27/24 Unknown Coronavirus OC43 (PCR) Not Detected (NotDetected) 04/27/24 Unknown Coronavirus HKU1 (PCR) Not Detected (NotDetected) 04/27/24 Unknown Coronavirus 229E (PCR) Not Detected (NotDetected) 04/27/24 Unknown SARS-CoV-2 (PCR) Not Detected (NotDetected) 04/27/24 Unknown Coronavirus NL63 (PCR) Not Detected (NotDetected) 04/27/24 Unknown Human Metapneumovir PCR Not Detected (NotDetected) 04/27/24 Unknown Influenza Type A (PCR) Not Detected (NotDetected) 04/27/24 Unknown Influenza Type B (PCR) Not Detected (NotDetected) 04/27/24 Unknown M. pneumoniae (PCR) Not Detected (NotDetected) 04/27/24 Unknown Parainfluenza 1 (PCR) Not Detected (NotDetected) 04/27/24 Unknown Parainfluenza 2 (PCR) Not Detected (NotDetected) 04/27/24 Unknown Parainfluenza 3 (PCR) Not Detected (NotDetected) 04/27/24 Unknown Parainfluenza 4 (PCR) Not Detected (NotDetected) 04/27/24 Unknown RSV (PCR) Not Detected (NotDetected) 04/27/24 Unknown Entero/Rhino (PCR) Not Detected (NotDetected) 04/27/24 Unknown Impressions Abdomen/Pelvis CT 04/27/24 04:39 Exam(s): CT ABDOMEN + PELVIS With Contrast IV Amt: 93 ml optiray 320 EXAM: CT Abdomen and Pelvis With Intravenous Contrast CLINICAL HISTORY: Reason for exam: abd, n/v. TECHNIQUE: Axial computed tomography images of the abdomen and pelvis with intravenous contrast. CTDI is 7.64 mGy and DLP is 353.73 mGy-cm. Automated exposure control was utilized for the study. A dose lowering technique was utilized adhering to the principles of ALARA. CONTRAST: Patient received 93 ml optiray 320 of IV contrast COMPARISON: February 24, 2024. FINDINGS: ABDOMEN: Liver: Unremarkable. No mass. Gallbladder and bile ducts: Cholecystectomy. No ductal dilation. Pancreas: Unremarkable. No mass. No ductal dilation. Spleen: Unremarkable. No splenomegaly. Adrenals: Unremarkable. No mass. Kidneys and ureters: Unremarkable. No solid mass. No hydronephrosis. Stomach and bowel: There has been interval surgery in the region of the upper rectum. There has been a previous gastric bypass. A gastrostomy tube is in the excluded stomach lumen. No obstruction. No mucosal thickening. PELVIS: Appendix: No findings to suggest acute appendicitis. Bladder: Unremarkable. No mass. Reproductive: Hysterectomy. ABDOMEN and PELVIS: Intraperitoneal space: Unremarkable. No free air. No significant fluid collection. Bones/joints: No acute findings. Soft tissues: Unremarkable. Vasculature: Unremarkable. No abdominal aortic aneurysm. Lymph nodes: Unremarkable. No enlarged lymph nodes. IMPRESSION: No acute findings in the abdomen or pelvis. Electronically signed by: Danis Giordano MD 04/27/24 05:33 AM Chest X-Ray 04/27/24 04:39 XR chest 1V portable CLINICAL HISTORY: Abdominal pain, nausea and vomiting. COMPARISON STUDY: Chest CT 621. Chest radiograph November 13, 2023. FINDINGS: Lung volumes are normal. Lungs are clear. There is no pneumothorax or pleural effusion. Cardiac size is normal. Mediastinal contours are normal. There is no evidence for pulmonary edema. IMPRESSION: No acute cardiopulmonary findings. ACT 112: Negative or not required by law. Electronically signed by: Lyle Romo M.D. 04/27/2024 6:54 AM KUB X-Ray 04/29/24 12:51 KUB CLINICAL HISTORY: Generalized abdominal pain. Constipation. FINDINGS: An AP, portable, supine abdominal radiograph is compared to study dated 11/13/2023 and correlated with abdominal CT dated 04/27/2024. A gastrostomy tube projects over the upper abdomen. There is mild gaseous distention of the colon. No bowel obstruction is seen. No evidence of intraperitoneal free air is seen on this supine image. Mild/moderate fecal retention is noted in the right colon. There are no abnormal abdominal calcifications. Cholecystectomy clips are noted in the right upper quadrant. Suture material seen projects over the left upper quadrant and pelvis. The bony structures appear intact. IMPRESSION: Mild gaseous distention of the colon with no evidence of bowel obstruction. Electronically signed by: Joe Corado M.D. 04/29/2024 4:55 PM Ordered Studies 04/27/24 04:39 CT abd pelvis IV con only Stat Hospital Course (1) Intractable nausea and vomiting: Ms. Marie is a 54-year-old female with past medical history significant for pulmonary embolism in 2018 currently not on anticoagulation, history of Salomón-en-Y gastric bypass in 2020, history of left basal ganglia hemorrhagic CVA requiring craniectomy in October 2022 with eventual cranioplasty in March 2023, severe protein calorie malnutrition and unintentional weight loss comes because of intractable nausea vomiting and abdominal pain. She states she has had hx of salomón en y 3 years ago. She did well for 2 years until she had a hemorrhagic CVA requiring craniotomy. Since then she has been suffering from chronic nausea prompting the placement of a feeding tube 10/2023. She was on tube feeds and things were stable, but then after the exchange in 01/2024. After the tube was e xchanged, she noted ongoing pain and discomfort. reports more food aversion, reclusive personality, and ongoing pain/nausea. Intractable nausea and vomiting Abdominal pain Possible irritable bowel syndrome --H/O Salomón-en-Y gastric bypass in 2020 --CT ABD:No acute findings in the abdomen or pelvis. --Normal lipase --possible central cause Continue IV Zofran and Phenergan PRN Patient declines use of antipsychotic as she didn't like the way it felt, though it helped with nausea, patient worried "hand twitching" was from olanzipine Appreciate GI input: Conservative management, okay to resume tube feeds Received Emend Tolerating tube feeds PPN discontinued May need to follow-up with her surgeon as outpatient Titrate down IV narcotics as able Goal to gradually increase tube feedings up to 85 mL/h x 12 hours/day or until 1L infused with Nutren 1.5. Run tube feeds overnight from 8PM until 8AM. Continue water flushes: 60 mL before and after tube feeds, additional 120 mL free water flushes 6x/day Tolerating oral intake Prefers to be discharged home today Advised to follow-up with gastroenterology/surgeon as outpatient Food aversion Depression concerned that some of the symptoms may be post-stroke psych related--noting more food aversion and quick to show prompt disgust, also noting that patient has become more withdrawn in last few months Appreciate psychiatry input Resume home sertraline continue mirtazapine 15 mg at bedtime Normal vitamin B-12 levels Zinc levels pending Leukocytosis Possible reactive UA negative Respiratory bio fire negative CT abdomen and pelvis unremarkable Chest x-ray unremarkable Leukocytosis resolved Diarrhea--likely overflow KUB noncontributory Obtain stool studies if recurrence of diarrhea Bowel regimen to prevent constipation Monitor Resolved Moderate protein calorie malnutrition Resume tube feeds as tolerated Appreciate dietitian consult History of hypothyroidism Not on meds Normal TSH Hyperglycemia History of prediabetes Hba1c 5.2% Hypophosphatemia Replace and monitor DVT Px: Heparin SQ CODE STATUS Full code. Total Time Total Time Spent Total Time Spent (In Minutes): 47 minutes Discharge Plan Discharge Items Patient Disposition: Home - Self-Care Reason For Visit: INTRACTABLE NAUSEA AND VOMITING Discharge Diagnosis: Intractable nausea and vomiting Possible irritable bowel syndrome Activity: Per Instructions section Exercise/Sports: Gradually increase as tolerated Non-emergency contact: Primary Care Provider, Surgeon and Tour Actor Call non-emergency contact if: you have any medication questions, your symptoms worsen, your pain is concerning for you and you have a fever Follow-up/Referrals: Joey Crockett MD [Primary Care Provider] - (Date & Time 05/06/2024 5:00 PM Provider Kylie Coto PA-C Department [facility] ) Dietitian Info: Continue tube feeds as directed Diet: Regular and Other - See Diet Comment Addtl Attending Provider Instructions: Follow-up with your primary care physician on 05/06/2024 5:00 PM Follow-up with your gastroenterology/gastric bypass surgeon as recommended --Continue tube feeds and water flushes as previously prescribed. Seek immediate medical attention if your symptoms reoccur or worsen Please take all medications as instructed on discharge list below. Please call if you have any questions or problems. You can reach a [facility] hospitalist on duty at [facility] 24 hours a day by calling [phone] Pending Studies at Discharge: No Stand-Alone Forms: My [facility], Smoking Cessation Medications and DC Order Prescriptions: New mirtazapine 15 mg Tablet 15 mg PO HS Qty: 30 0RF dicyclomine 10 mg Capsule 10 mg PO TID PRN (Reason: Abdominal Pain) Qty: 30 0RF polyethylene glycol 3350 [Miralax] 17 gram Powder In Packet 17 g PO DAILY PRN (Reason: Constipation) Qty: 30 0RF Continued ondansetron 4 mg tablet,disintegrating 4 mg PO TID PRN (Reason: Nausea And Vomiting) metoclopramide HCl 10 mg tablet 10 mg PO TID PRN (Reason: Nausea And Vomiting) sertraline 100 mg tablet 200 mg PO DAILY Discharge Orders: Discharge Order (Routine); Ordered 05/03/24 Ordered By: Devon Velasquez Admission Data Admit Date/Time: 04/27/24 07:10 Attending Provider: Devon Velasquez Admit Provider: Nicolas Joshi Primary Care Provider: Joey Crockett Other Providers: Nicolas Joshi; Romero Lackey; Layla Castro; Anoop Patel; Ayaka Vargas; Faina Vaughn; Guido Benjamin; Sintia Jorge
[2024-05-03 14:01] VITALS: BP 95/62; PULSE 62; TEMP 99.1
[2024-05-03 14:37] LABS: Zinc 52 mcg/dL (60-130)
== END 2024-05-03 15:02 | disposition home or self-care (01) | DRG 392 ==
LOC: ED 04:23 → SUATTDRO 07:10 → EDINP 07:10 → 3N 15:54

== ENCOUNTER 2024-07-19 08:55 | Inpatient (IN) ==
[2024-07-19] MEDS: SODIUM CHLORIDE 0.9% 1,000 ML IV ONE ×2 (09:35→13:13)
[2024-07-19] MEDS: PROMETHAZINE 12.5 MG/50.5 ML BAG IV STA (09:36)
[2024-07-19] MEDS: LORazepam 2 MG/1 ML VIAL IV STA (09:36)
[2024-07-19] MEDS: diphenhydrAMINE 50 MG/ML VIAL IV STA ×2 (09:36→11:35)
--- NOTE | 2024-07-19 09:36 | Emergency Department Note ---
Impression & Plan Intractable nausea and vomiting, Left lower quadrant abdominal pain ED Provider Note NAME: ZEFERINO PICKARD AGE: 54 SEX: Female INFORMANT: Patient and ED PROVIDER(S): Joey Johnson MD CHIEF COMPLAINT: intractable nausea and vomiting PLAN: Disposition: Admitted Outpatient prescription management: none Referral: None MEDICAL DECISION MAKING: Patient presented because of tractable nausea and vomiting. Patient has a long history of this since her stroke and gastric bypass. On examination she was dry heaving and was uncomfortable. Patient was alert and answering questions appropriately. She and I along with her discussed treatment and they noted success with the last visit and medications received. I did review this and patient was treated with IV normal saline, IV Phenergan, IV Ativan, and Benadryl. She was reassessed and was still nauseated. Patient was treated with thiamine, folate, and potassium. She had a significant leukocytosis on CBC but this has been noted previously with her episodes. Her potassium was mildly low. Patient still had some nausea and was treated with Reglan and Benadryl again. She was improving but in light of the symptoms, electrolyte abnormalities and leukocytosis I discussed further management in the hospital. Patient and in agreement. CT imaging did not reveal any acute findings. Urinalysis unremarkable. Patient's blood pressure initially was high and started to trend down without direct intervention. Record review indicates that she has had labile blood pressures in the past with her illness. Consultation was made with the [facility] hospitalist service. Case discussed with Dr. Barraza. Patient was evaluated in the ER and admitted. Care/management discussed with: manager coding Level of care consideration(s): After review of the information above and other included data, I feel the patient requires further escalation of care to admission Triage Nursing notes: reviewed and agree them. Vital Signs: reviewed and remarkable for mild tachycardia and hypertension Additional History obtained from: Patient's is present and helps with the history. Chronic Medical/Social Conditions affecting care: Gastric bypass status, chronic nausea and vomiting Prior/ Outside/ External records reviewed: Prior ED visit record reviewed. Patient was successfully treated with Phenergan, Benadryl, Ativan, IV fluids and Zofran. Differential Diagnosis: Etiologies such as acute exacerbation of chronic nausea and vomiting, complication of gastric bypass, viral syndrome, gastroenteritis, food borne illness, infections, appendicitis, diverticulitis, inflammatory bowel disease, GI bleed, biliary pathology, obstruction, constipation, renal colic, as well as others were entertained. Diagnostics, independently interpreted by me: ECG: none Cardiac Monitoring: Cardiac monitoring ordered by me: The patient was placed on continuous cardiac monitoring and observed. It revealed a borderline sinus tachycardic rhythm at 106 beats per minute without ectopy or evidence of dysrhythmia. Medical decision rules: none Imaging studies: CT imaging of the abdomen pelvis reveals no evidence of obstruction or acute intra-abdominal findings. I refer you to the EMR for further details. HPI: 54 year old Female arrives for evaluation of recurrent nausea and vomiting. This has been an ongoing problem for the patient since her gastric bypass in 2020. Patient has a feeding tube in her gastric remnant and receives most of her nutrition that way. Patient has had frequent visits to the emergency department for the same. Patient states this feels similar although she also has lower left abdominal pain and left back pain. Pain is rated 8 out of 10. She feels generally weak. Patient notes having her surgery at [facility]. notes that they have been having difficulty with follow-up with her specialists at [place]. Patient does note having a stuffy nose and sore throat. Denies any known illness exposures. Patient did note having 1 bowel movement yesterday. and patient did raise some concerns for constipation. notes that he did get [id number] suppositories but the patient was nervous about taking these. Pt denies fevers, chills, diaphoresis, visual changes, neck pain, chest pain, breathing difficulties, melena, hematochezia, urinary symptoms, lymphadenopathy, rash, or other complaints. PAST MEDICAL HISTORY: See Below, chronic nausea and vomiting, depression, CVA PAST SURGICAL HISTORY: See Below, gastric bypass, feeding tube SOCIAL HISTORY: See Below, HOME MEDICATIONS: See Below ALLERGIES: See Below VITALS: See Below PHYSICAL EXAMINATION: GENERAL: Awake, alert, uncomfortable-appearing, in mild distress HENT: Normocephalic, atraumatic. Oropharynx unremarkable. EYES: Normal conjunctiva. Sclera non-icteric. NECK: Inspection normal. Non-tender. Supple. No nuchal rigidity. FROM. No masses. RESPIRATORY: Clear to auscultation. No wheezes. No rales. Normal respiratory effort. CARDIAC: Normal rate. Normal rhythm. No murmurs. No rubs. Extremities warm and well perfused. Pulses equal. No JVD. GI: Soft, non-distended. Feeding tube in the left upper quadrant. Left lower quadrant tenderness to palpation. No rebound or guarding. No masses. RECTAL: Deferred. MUSCULOSKELETAL: Atraumatic. Chest examination reveals no tenderness. The back is symmetrical on inspection without obvious abnormality. There is left CVA tenderness to palpation. No joint edema. LOWER EXTREMITIES: Calves are equal size bilaterally and non-tender. No edema. No discoloration. NEURO: Normal sensorium. No sensory or motor deficits noted. SKIN: No rash or jaundice noted. PROCEDURES: none CRITICAL CARE: none OBSERVATION NOTE: none Past Med/Surg History Problem List Left lower quadrant abdominal pain (Acute) Taste perversion Gastrostomy present (Acute) Leukocytosis (Acute) Intractable nausea and vomiting (Acute) Unintentional weight loss Moderate protein-calorie malnutrition History of hemorrhagic cerebrovascular accident (CVA) with residual deficit occasional exp aphasia ESTEBAN (obstructive sleep apnea) (Chronic) GERD (gastroesophageal reflux disease) (Chronic) Depression (Chronic) Anxiety Medical History Pulmonary embolism Endometriosis Hemorrhagic stroke Surgical History History of Maryuri-en-Y gastric bypass H/O wisdom tooth extraction History of partial colectomy History of hysterectomy Hx of cholecystectomy History of appendectomy H/O craniotomy Social History Smoking Status: Current every day smoker Tobacco Type: E-cigarettes / Vaping Second Hand Exposure: No; Do You Dip or Chew Tobacco: No; Hx Alcohol Use: No Hx Substance Use: No Preferred Language: Puerto Rican 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 Ability: Impaired Retinal Angiographer Required: No Beliefs That Will Affect Care: None Current Living Situation: Spouse Other Information That Helps Us Care for You: No Feels Safe at Home: Yes Assistive Devices: None Allergies Allergies Allergy/AdvReac Type Severity Reaction Status Date / Time No Known Allergies Allergy Verified 02/24/24 11:06 Home Meds Home Medications Medication Instructions Recorded Confirmed metoclopramide HCl 10 mg tablet 10 mg PO UD PRN Nausea And Vomiting 04/27/24 07/19/24 ondansetron 4 mg disintegrating 4 mg PO UD PRN Nausea And Vomiting 04/27/24 07/19/24 tablet sertraline 100 mg tablet 200 mg PO DAILY 05/01/24 07/19/24 clonazepam 1 mg tablet 1 mg PO DAILY 06/27/24 07/19/24 dicyclomine 10 mg capsule 10 mg PO UD PRN Abdominal Pain 07/19/24 07/19/24 mirtazapine 15 mg tablet 15 mg PO UD 07/19/24 07/19/24 Previous Rx's Medication Instructions Recorded polyethylene glycol 3350 17 gram 17 g PO DAILY PRN Constipation #30 05/03/24 oral powder packet (Miralax) ea ondansetron HCl 4 mg tablet 4 mg PO Q8H PRN nausea and 06/27/24 vomiting #15 tabs Results & Data (ED) Vital Signs Vital Signs - 24 hr 07/19/24 08:59 07/19/24 09:45 07/19/24 09:45 Temperature 36.8 C Temperature Source Temporal Artery Scan Pulse Rate 112 H Pulse Rate [Apical] 68 Pulse Rate from SpO2 Sensor Pulse Rhythm Regular Pulse Strength Normal Respiratory Rate 20 18 Respiratory Effort / Characteristics Non-Labored Spontaneous Respiratory Depth Normal Respiratory Pattern Regular Blood Pressure 175/112 H Blood Pressure [Left Arm] 158/118 H Blood Pressure Mean 133 Blood Pressure Mean [Left Arm] 131 Blood Pressure Position Sitting Blood Pressure Position [Left Arm] Pulse Oximetry 95 96 98 Oxygen Delivery Method Room Air Sepsis Recent Fever Within 48 Hours No Sepsis New/Unexplained Change in Mental Status No Sepsis Action Taken by Nursing No Action Required 07/19/24 09:54 07/19/24 09:57 07/19/24 10:00 Temperature Temperature Source Pulse Rate 93 H 94 H Pulse Rate [Apical] Pulse Rate from SpO2 Sensor 92 H 94 H Pulse Rhythm Pulse Strength Respiratory Rate 14 19 Respiratory Effort / Characteristics Respiratory Depth Respiratory Pattern Blood Pressure 172/99 H Blood Pressure [Left Arm] Blood Pressure Mean 123 Blood Pressure Mean [Left Arm] Blood Pressure Position Blood Pressure Position [Left Arm] Pulse Oximetry 97 97 Oxygen Delivery Method Sepsis Recent Fever Within 48 Hours Sepsis New/Unexplained Change in Mental Status Sepsis Action Taken by Nursing 07/19/24 10:06 07/19/24 10:12 07/19/24 10:12 Temperature Temperature Source Pulse Rate 89 87 87 Pulse Rate [Apical] Pulse Rate from SpO2 Sensor 89 87 Pulse Rhythm Pulse Strength Respiratory Rate 16 19 Respiratory Effort / Characteristics Respiratory Depth Respiratory Pattern Blood Pressure Blood Pressure [Left Arm] Blood Pressure Mean Blood Pressure Mean [Left Arm] Blood Pressure Position Blood Pressure Position [Left Arm] Pulse Oximetry 98 98 Oxygen Delivery Method Sepsis Recent Fever Within 48 Hours Sepsis New/Unexplained Change in Mental Status Sepsis Action Taken by Nursing 07/19/24 10:27 07/19/24 10:30 07/19/24 10:33 Temperature Temperature Source Pulse Rate 85 86 Pulse Rate [Apical] Pulse Rate from SpO2 Sensor 86 89 Pulse Rhythm Pulse Strength Respiratory Rate 22 16 Respiratory Effort / Characteristics Respiratory Depth Respiratory Pattern Blood Pressure 172/111 H Blood Pressure [Left Arm] Blood Pressure Mean 143 Blood Pressure Mean [Left Arm] Blood Pressure Position Blood Pressure Position [Left Arm] Pulse Oximetry 100 98 Oxygen Delivery Method Sepsis Recent Fever Within 48 Hours Sepsis New/Unexplained Change in Mental Status Sepsis Action Taken by Nursing 07/19/24 10:42 07/19/24 11:00 Temperature Temperature Source Pulse Rate 88 Pulse Rate [Apical] 99 H Pulse Rate from SpO2 Sensor 86 Pulse Rhythm Pulse Strength Respiratory Rate 19 17 Respiratory Effort / Characteristics Non-Labored Spontaneous Respiratory Depth Normal Respiratory Pattern Blood Pressure Blood Pressure [Left Arm] 156/107 H Blood Pressure Mean Blood Pressure Mean [Left Arm] 123 Blood Pressure Position Blood Pressure Position [Left Arm] Semi-fowlers Pulse Oximetry 98 96 Oxygen Delivery Method Room Air Sepsis Recent Fever Within 48 Hours Sepsis New/Unexplained Change in Mental Status Sepsis Action Taken by Nursing Laboratory Data 07/19/24 09:30 07/19/24 09:30 Lab Results 07/19/24 07/19/24 07/19/24 Range/Units 09:30 09:51 11:43 WBC 20.56 H (4.8-10.8) K/ul RBC 5.40 (4.20-5.40) M/uL Hgb 16.0 (12.0-16.0) g/dl Hct 46.2 (37.0-47.0) % MCV 85.6 (80.0-100.0) fL MCH 29.6 (25.0-34.0) pg MCHC 34.6 (32.0-36.0) g/dL RDW Std Deviation 39.9 (36.4-46.3) fL RDW Coeff of Aysha 13.0 (11.5-14.5) % Plt Count 338 (130-400) K/uL MPV 11.1 (9.4-12.4) fL Immature Gran % (Auto) 0.6 % Neut % (Auto) 85.4 % Lymph % (Auto) 9.4 % Hart % (Auto) 4.0 % Eos % (Auto) 0.2 % Baso % (Auto) 0.4 % Neut # (Auto) 17.53 H (1.40-6.50) K/uL Lymph # (Auto) 1.94 (1.20-3.40) K/uL Hart # (Auto) 0.83 H (0.11-0.59) K/uL Eos # (Auto) 0.05 (0.00-0.50) K/uL Baso # (Auto) 0.08 (0.00-0.20) K/uL Immature Gran # (Auto) 0.13 (0.01-0.20) K/uL Sodium 133 L (136-145) mmol/L Potassium 3.1 L (3.5-5.1) mmol/L Chloride 99 (98-107) mmol/L Carbon Dioxide 23 (21-32) mmol/L Anion Gap 11 (3-11) BUN 39 H (6-23) mg/dl Creatinine 0.82 (0.6-1.2) mg/dl Est Cr Clr Drug Dosing 62.9 ml/min eGFR 84.95 BUN/Creatinine Ratio 47.6 H (10-20) Glucose 158 H (70-99(Fasting)) mg/dl Calcium 9.9 (8.6-10.3) mg/dl Phosphorus 3.3 (2.5-4.9) mg/dl Magnesium 1.9 (1.7-2.4) mg/dl Total Bilirubin 1.0 (0.2-1.0) mg/dl AST 19 (13-39) U/L ALT 14 (7-52) U/L Alkaline Phosphatase 62 (34-104) U/L Total Protein 8.1 (6.0-8.3) gm/dl Albumin 4.7 (3.4-5.0) gm/dl Globulin 3.4 (2.5-4.0) gm/dl Albumin/Globulin Ratio 1.4 (0.9-2) Lipase 12 (11-82) U/L Urine Color Yellow Urine Appearance Clear (Clear) Urine pH 5.0 (4.5-7.5) Ur Specific [place] 1.035 H (1.000-1.030) Urine Protein 1+ H (Negative) Urine Glucose (UA) 1+ H (Negative) Urine Ketones 1+ H (Negative) Urine Blood 1+ H (Negative) Urine Nitrite Negative (Negative) Urine Bilirubin Negative (Negative) Urine Urobilinogen Negative (Negative) Ur Leukocyte Esterase Negative (Negative) Urine WBC (Auto) 0-5 (0-5) /hpf Urine RBC (Auto) 0-2 (0-2) /hpf U Hyaline Cast (Auto) 6-10 H (0-2) /lpf U Epithel Cells (Auto) 0-2 (0-2) /hpf Urine Bacteria (Auto) None Seen (None Seen) Urine Mucus Present A (None Prsent) Adenovirus (PCR) Not Detected (NotDetected) B. pertussis DNA (PCR) Not Detected (NotDetected) B.parapertussis DNA PCR Not Detected (NotDetected) C. pneumoniae DNA (PCR) Not Detected (NotDetected) Coronavirus OC43 (PCR) Not Detected (NotDetected) Coronavirus HKU1 (PCR) Not Detected (NotDetected) Coronavirus 229E (PCR) Not Detected (NotDetected) SARS-CoV-2 (PCR) Not Detected (NotDetected) Coronavirus NL63 (PCR) Not Detected (NotDetected) Human Metapneumovir PCR Not Detected (NotDetected) Influenza Type A (PCR) Not Detected (NotDetected) Influenza Type B (PCR) Not Detected (NotDetected) M. pneumoniae (PCR) Not Detected (NotDetected) Parainfluenza 1 (PCR) Not Detected (NotDetected) Parainfluenza 2 (PCR) Not Detected (NotDetected) Parainfluenza 3 (PCR) Not Detected (NotDetected) Parainfluenza 4 (PCR) Not Detected (NotDetected) RSV (PCR) Not Detected (NotDetected) Entero/Rhino (PCR) Not Detected (NotDetected) Administered Medications Sodium Chloride (Nss) 1,000 mls @ 75 mls/hr IV .[id number] ONE Stop: 07/20/24 02:16 Last Admin: 07/19/24 13:13 Dose: 75 mls/hr Documented By: MARVIN Acetaminophen (Ofirmev) 1,000 mg in 100 mls @ 400 mls/hr IV Q8H PRN PRN Reason: Pain Stop: 07/22/24 13:17 Last Infusion: 07/19/24 15:53 Dose: Infused Documented By: LUIS EDUARDO Admin: 07/19/24 14:47 Dose: 400 mls/hr Documented By: LUIS EDUARDO Discontinued Medications Diphenhydramine HCl (Diphenhydramine 50 Mg/Ml Vial) 25 mg IV NOW STA Stop: 07/19/24 09:26 Last Admin: 07/19/24 09:36 Dose: 25 mg Documented By: DAYSI Diphenhydramine HCl (Diphenhydramine 50 Mg/Ml Vial) 12.5 mg IV NOW STA Stop: 07/19/24 11:15 Last Admin: 07/19/24 11:35 Dose: 12.5 mg Documented By: MARVIN Sodium Chloride (Nss) 1,000 mls @ 999 mls/hr IV .Q1H1M ONE Stop: 07/19/24 10:03 Last Infusion: 07/19/24 12:14 Dose: Infused Documented By: Admin: 07/19/24 09:35 Dose: 999 mls/hr Documented By: DAYSI Promethazine HCl (Phenergan) 25 mg in 51 mls @ 204 mls/hr IV NOW STA Stop: 07/19/24 09:39 Last Admin: 07/19/24 09:53 Dose: Not Given Documented By: DAYSI Promethazine HCl (Phenergan) 12.5 mg in 50.5 mls @ 202 mls/hr IV NOW STA Stop: 07/19/24 09:43 Last Infusion: 07/19/24 09:53 Dose: Infused Documented By: Admin: 07/19/24 09:36 Dose: 202 mls/hr Documented By: DAYSI Potassium Chloride (K Terry / Wtr) 10 meq in 100 mls @ 100 mls/hr IV ONE ONE Stop: 07/19/24 11:53 Last Infusion: 07/19/24 13:11 Dose: Infused Documented By: Admin: 07/19/24 11:35 Dose: 100 mls/hr Documented By: MARVIN Thiamine HCl 100 mg/ Syringe 10 mls @ 2 mls/min IV NOW STA Stop: 07/19/24 10:58 Last Admin: 07/19/24 12:15 Dose: 2 mls/min Documented By: MARVIN Folic Acid 1 mg/ Syringe 10 mls @ 5 mls/min IV NOW STA Stop: 07/19/24 10:55 Last Admin: 07/19/24 12:15 Dose: 5 mls/min Documented By: MARVIN Potassium Chloride (K Terry / Wtr) 10 meq in 100 mls @ 100 mls/hr IV Q1H CASANDRA Stop: 07/19/24 14:59 Last Admin: 07/19/24 16:04 Dose: 100 mls/hr Documented By: LUIS EDUARDO Ioversol (Optiray 320 100ml) 94 ml IV ONCE ONE Stop: 07/19/24 10:49 Last Admin: 07/19/24 10:48 Dose: 94 ml Documented By: NNAMDI Lorazepam (Lorazepam 2 Mg/1 Ml Vial) 1 mg IV NOW STA Stop: 07/19/24 09:26 Last Admin: 07/19/24 09:36 Dose: 1 mg Documented By: DAYSI Metoclopramide HCl (Metoclopramide Hcl Inj 5 Mg/Ml 2 Ml Vial) 5 mg IV ONE ONE Stop: 07/19/24 11:15 Last Admin: 07/19/24 11:35 Dose: 5 mg Documented By: MARVIN Ondansetron HCl (Ondansetron Inj 2 Mg/Ml 2 Ml Vial) 4 mg IV NOW STA Stop: 07/19/24 10:29 Last Admin: 07/19/24 10:42 Dose: 4 mg Documented By: DAYSI Imaging Data Radiologist's Impression: Abdomen/Pelvis CT 07/19/24 09:28 EXAM: CT Abdomen and Pelvis With Intravenous Contrast INDICATION: Nausea and vomiting. Left lower quadrant pain. TECHNIQUE: Axial computed tomography images of the abdomen and pelvis with intravenous contrast. Sagittal and coronal reformatted images were created and reviewed. This CT exam was performed using one or more of the following dose reduction techniques: automated exposure control, adjustment of the mA and/or kV according to patient size, and/or use of iterative reconstruction technique. CONTRAST: 94ml of Optiray 320 was administered intravenously. COMPARISON: 02/24/2024 FINDINGS: Limitations: None. Lung bases: No abnormality noted. Pleural space: No visualized pleural effusion or pneumothorax. Heart: No abnormality noted. Mediastinum: No abnormality noted. ABDOMEN: Liver: No abnormality noted. Gallbladder and bile ducts: Cholecystectomy. No ductal dilation or stone noted. Pancreas: Homogeneous enhancement. No mass, inflammation or ductal dilation. Spleen: No significant abnormality noted. Adrenals: No significant abnormality noted. Kidneys and ureters: Normal enhancement. No mass, hydronephrosis or visualized stone. Stomach and bowel: Postoperative changes gastric bypass stable with balloon noted in the gastric pouch which contains a small amount of fluid. The distal stomach and duodenum are collapsed containing a small amount of fluid. There is no associated inflammation. Rectal staple line noted. Moderate amounts of stool and gas in the rectosigmoid there is no intestinal obstruction. Diffuse colonic diverticulosis noted. PELVIS: Appendix: No findings to suggest acute appendicitis. Bladder: No filling defects to suggest mass or large stone. No inflammation. Reproductive: No abnormalities noted. ABDOMEN and PELVIS: Intraperitoneal space: No free air. No significant fluid collection. Bones/joints: No acute changes. Soft tissues: No significant abnormality noted. Vasculature: No abdominal aortic aneurysm. Lymph nodes: No pathologically enlarged lymph nodes. IMPRESSION: 1. There is no acute abnormality such as diverticulitis or obstruction. No evidence of internal hernia or intussusception. Impression gastrostomy balloon inflated in the gastric pouch. 2. Diffuse colonic diverticulosis without diverticulitis. ACT 112: Negative or not required by law. Electronically signed by Iza Aguirre 07-19-2024 11:16 AM Discharge Plan Visit Data Chief Complaint: Vomiting Stated Complaint: VOMITING, ABD PAIN ED Provider: Joey Johnson Discharge Problem: Intractable nausea and vomiting, Left lower quadrant abdominal pain Patient Disposition: Admitted As Inpatient Discharge Instructions Interventions: ED Discharge Assessment Last Done: 07/19/24 13:40
[2024-07-19 09:51] LABS: Basophils # (auto) 0.08 K/uL (0.00-0.20); Basophils % (auto) 0.4 %; Eosinophils # (auto) 0.05 K/uL (0.00-0.50); Eosinophils % (auto) 0.2 %; Hematocrit (blood only) 46.2 % (37.0-47.0); Immature Granulocytes # (auto) 0.13 K/uL (0.01-0.20); Immature Granulocytes % (auto) 0.6 %; Lymphocytes # (auto) 1.94 K/uL (1.20-3.40); Lymphocytes % (auto) 9.4 %; Mean Corpuscular Hemoglobin 29.6 pg (25.0-34.0); Mean Corpuscular Hgb Conc 34.6 g/dL (32.0-36.0); Mean Corpuscular Volume 85.6 fL (80.0-100.0); Mean Platelet Volume 11.1 fL (9.4-12.4); Monocytes # (auto) 0.83 K/uL (0.11-0.59); Neutrophils # (auto) 17.53 K/uL (1.40-6.50); Neutrophils % (auto) 85.4 %; Platelet Count 338 K/uL (130-400); RDW Standard Deviation 39.9 fL (36.4-46.3); White Blood Count 20.56 K/ul (4.8-10.8)
[2024-07-19] MEDS: PROMETHAZINE 25 MG/51 ML BAG IV STA (09:53)
[2024-07-19 10:06] LABS: Albumin Globulin Ratio 1.4 (0.9-2); Albumin Level 4.7 gm/dl (3.4-5.0); BUN Creatinine Ratio 47.6 (10-20); Calcium 9.9 mg/dl (8.6-10.3); Creatinine Clr Calc Pharmacy 62.9 ml/min; Globulin 3.4 gm/dl (2.5-4.0); Potassium 3.1 mmol/L (3.5-5.1); Total Protein 8.1 gm/dl (6.0-8.3)
[2024-07-19] MEDS: ONDANSETRON INJ 2 MG/ML 2 ML VIAL IV STA (10:42)
[2024-07-19] MEDS: OPTIRAY 320 100ml IV ONE (10:48)
[2024-07-19 10:49] LABS: Adenovirus PCR Not Detected (NotDetected); Bordetella parapertussis PCR Not Detected (NotDetected); Bordetella pertussis PCR Not Detected (NotDetected); Chlamydia pneumoniae PCR Not Detected (NotDetected); Coronavirus 229E PCR Not Detected (NotDetected); Coronavirus CoV-2 (COVID19)PCR Not Detected (NotDetected); Coronavirus HKU1 PCR Not Detected (NotDetected); Coronavirus NL63 PCR Not Detected (NotDetected); Coronavirus OC43PCR Not Detected (NotDetected); Human Metapneumovirus PCR Not Detected (NotDetected); Influenza A PCR Not Detected (NotDetected); Influenza B PCR Not Detected (NotDetected); Mycoplasma pneumoniae PCR Not Detected (NotDetected); Parainfluenza Virus 1 PCR Not Detected (NotDetected); Parainfluenza Virus 2 PCR Not Detected (NotDetected); Parainfluenza Virus 3 PCR Not Detected (NotDetected); Parainfluenza Virus 4 PCR Not Detected (NotDetected); Respiratory Syncytial VirusPCR Not Detected (NotDetected); Rhinovirus/Enterovirus PCR Not Detected (NotDetected)
--- NOTE | 2024-07-19 11:16 | CT Scan Report ---
EXAM: CT Abdomen and Pelvis With Intravenous Contrast INDICATION: Nausea and vomiting. Left lower quadrant pain. TECHNIQUE: Axial computed tomography images of the abdomen and pelvis with intravenous contrast. Sagittal and coronal reformatted images were created and reviewed. This CT exam was performed using one or more of the following dose reduction techniques: automated exposure control, adjustment of the mA and/or kV according to patient size, and/or use of iterative reconstruction technique. CONTRAST: 94ml of Optiray 320 was administered intravenously. COMPARISON: 02/24/2024 FINDINGS: Limitations: None. Lung bases: No abnormality noted. Pleural space: No visualized pleural effusion or pneumothorax. Heart: No abnormality noted. Mediastinum: No abnormality noted. ABDOMEN: Liver: No abnormality noted. Gallbladder and bile ducts: Cholecystectomy. No ductal dilation or stone noted. Pancreas: Homogeneous enhancement. No mass, inflammation or ductal dilation. Spleen: No significant abnormality noted. Adrenals: No significant abnormality noted. Kidneys and ureters: Normal enhancement. No mass, hydronephrosis or visualized stone. Stomach and bowel: Postoperative changes gastric bypass stable with balloon noted in the gastric pouch which contains a small amount of fluid. The distal stomach and duodenum are collapsed containing a small amount of fluid. There is no associated inflammation. Rectal staple line noted. Moderate amounts of stool and gas in the rectosigmoid there is no intestinal obstruction. Diffuse colonic diverticulosis noted. PELVIS: Appendix: No findings to suggest acute appendicitis. Bladder: No filling defects to suggest mass or large stone. No inflammation. Reproductive: No abnormalities noted. ABDOMEN and PELVIS: Intraperitoneal space: No free air. No significant fluid collection. Bones/joints: No acute changes. Soft tissues: No significant abnormality noted. Vasculature: No abdominal aortic aneurysm. Lymph nodes: No pathologically enlarged lymph nodes. IMPRESSION: 1. There is no acute abnormality such as diverticulitis or obstruction. No evidence of internal hernia or intussusception. Impression gastrostomy balloon inflated in the gastric pouch. 2. Diffuse colonic diverticulosis without diverticulitis. ACT 112: Negative or not required by law. Electronically signed by Iza Aguirre 07-19-2024 11:16 AM
[2024-07-19] MEDS: POTASSIUM CHLORIDE / WTR 10 MEQ/100 ML PLCT IV ONE (11:35)
[2024-07-19] MEDS: METOCLOPRAMIDE HCL INJ 5 MG/ML 2 ML VIAL IV ONE (11:35)
--- NOTE | 2024-07-19 11:40 | History & Physical Report ---
Date of Service July 19, 2024 Assessment & Plan (1) Intractable nausea and vomiting: (2) Left lower quadrant abdominal pain: (3) Leukocytosis: Plan: Pt w/ hx of gastric bypass + g-tube/ feeding tube Nausea, vomiting, abd. pain - episodes recurrent possible central cause (see previous GI consult note) CT abd.pelvis in ED 1. There is no acute abnormality such as diverticulitis or obstruction. No evidence of internal hernia or intussusception. Impression gastrostomy balloon inflated in the gastric pouch. 2. Diffuse colonic diverticulosis without diverticulitis. In the ED received IVF, antiemetics - phenergan, zofran, ativan, reglan, benadryl Cont. closely monitor. cont. prn antiemetics If w/o improvement, consult GI Also recommend close follow up as outpt w/ her [place] providers/specialists- will help arrange on DC Hypokalemia - replace and monitor Leukocytosis - likely reactive, and secondary to dehydration - afebrile - biofire negative - CT abd./pelvis without any acute pathology - UA negat. 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 Pt presents w/ her who also helps provide history, pt herself appears drowsy after receiving multiple antiemetics in the ED. They report she has been having n/v on and off but especially after her g-tube was exchanged in March. She had EGD done in August 2023 which was unremarkable and was thought her symptoms were mostly central in etiology. She now has another major episode of n/v, started about 3 days ago. says tube feeds make it worse, pt tried it last night and had to stop. also says no BM in past few days. Pt denies any fever, chills, chest pain or shortness of breath. Has some abdominal discomfort at umbilicus - says it comes and goes every couple of days. CT abdomen/pelvis was obtained in ED and did not show any acute pathology. Labs significant for leukocytosis. Allergies Allergy/AdvReac Type Severity Reaction Status Date / Time No Known Allergies Allergy Verified 02/24/24 11:06 Home Medications Medication Instructions Recorded Confirmed Type metoclopramide HCl 10 mg tablet 10 mg PO UD PRN Nausea And Vomiting 04/27/24 07/19/24 History ondansetron 4 mg disintegrating 4 mg PO UD PRN Nausea And Vomiting 04/27/24 07/19/24 History tablet sertraline 100 mg tablet 200 mg PO DAILY 05/01/24 07/19/24 History polyethylene glycol 3350 17 gram 17 g PO DAILY PRN Constipation #30 05/03/24 07/19/24 Rx oral powder packet (Miralax) ea clonazepam 1 mg tablet 1 mg PO DAILY 06/27/24 07/19/24 History ondansetron HCl 4 mg tablet 4 mg PO Q8H PRN nausea and 06/27/24 07/19/24 Rx vomiting #15 tabs dicyclomine 10 mg capsule 10 mg PO UD PRN Abdominal Pain 07/19/24 07/19/24 History mirtazapine 15 mg tablet 15 mg PO UD 07/19/24 07/19/24 History Past Med/Surg History Problem List Left lower quadrant abdominal pain (Acute) Taste perversion Gastrostomy present (Acute) Leukocytosis (Acute) Intractable nausea and vomiting (Acute) Unintentional weight loss Moderate protein-calorie malnutrition History of hemorrhagic cerebrovascular accident (CVA) with residual deficit occasional exp aphasia ESTEBAN (obstructive sleep apnea) (Chronic) GERD (gastroesophageal reflux disease) (Chronic) Depression (Chronic) Anxiety Medical History Pulmonary embolism Endometriosis Hemorrhagic stroke Surgical History History of Maryuri-en-Y gastric bypass H/O wisdom tooth extraction History of partial colectomy History of hysterectomy Hx of cholecystectomy History of appendectomy H/O craniotomy Social History Smoking Status: Current every day smoker Tobacco Type: E-cigarettes / Vaping Second Hand Exposure: No; Do You Dip or Chew Tobacco: No; Hx Alcohol Use: No Hx Substance Use: No Preferred Language: Czech 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 Ability: Impaired Masonry Instructor Required: No Beliefs That Will Affect Care: None Current Living Situation: Spouse Other Information That Helps Us Care for You: No Feels Safe at Home: Yes Assistive Devices: None Review of Systems Review of Systems: All systems reviewed & are unremarkable except as noted in Subjective Physical Exam Constitutional: WD/WN, vitals as above (slim F) Eyes: PERRL, conjunctivae normal, anicteric sclerae ENMT: external ear and nose normal, oropharynx normal Neck: normal visual inspection Respiratory: normal respiratory effort, lungs clear to auscultation Cardiovascular: RRR, no murmur, no edema Chest (Breasts): Chest: normal inspection of chest Gastrointestinal (Abdomen): abdomen soft, +tenderness to palp. at umbilicus,+ gastro tube Musculoskeletal: no cyanosis or clubbing, extremities motor strength 5/5 Skin: no rashes, warm and dry Neurologic: PERRL, EOMI, accommodation nl, no face palsy, no dysarthria (drowsy) Results & Data Results & Data Vital Signs (Past 12 Hours) Vital Signs Temp Pulse Pulse Resp BP BP Pulse Ox 07/19/24 11:00 99 H 17 156/107 H 96 07/19/24 10:42 88 19 98 07/19/24 10:33 86 16 98 07/19/24 10:30 172/111 H 07/19/24 10:27 85 22 100 07/19/24 10:12 87 19 98 07/19/24 10:12 87 07/19/24 10:06 89 16 98 07/19/24 10:00 172/99 H 07/19/24 09:57 94 H 19 97 07/19/24 09:54 93 H 14 97 07/19/24 09:45 98 07/19/24 09:45 68 18 158/118 H 96 07/19/24 08:59 36.8 C 112 H 20 175/112 H 95 O2 Del Method 07/19/24 11:00 Room Air 07/19/24 10:42 07/19/24 10:33 07/19/24 10:30 07/19/24 10:27 07/19/24 10:12 07/19/24 10:12 07/19/24 10:06 07/19/24 10:00 07/19/24 09:57 07/19/24 09:54 07/19/24 09:45 07/19/24 09:45 07/19/24 08:59 Room Air Laboratory Results 07/19/24 07/19/24 Range/Units 09:51 09:30 WBC 20.56 H (4.8-10.8) K/ul RBC 5.40 (4.20-5.40) M/uL Hgb 16.0 (12.0-16.0) g/dl Hct 46.2 (37.0-47.0) % MCV 85.6 (80.0-100.0) fL MCH 29.6 (25.0-34.0) pg MCHC 34.6 (32.0-36.0) g/dL RDW Std Deviation 39.9 (36.4-46.3) fL RDW Coeff of Aysha 13.0 (11.5-14.5) % Plt Count 338 (130-400) K/uL MPV 11.1 (9.4-12.4) fL Immature Gran % (Auto) 0.6 % Neut % (Auto) 85.4 % Lymph % (Auto) 9.4 % Dupage % (Auto) 4.0 % Eos % (Auto) 0.2 % Baso % (Auto) 0.4 % Neut # (Auto) 17.53 H (1.40-6.50) K/uL Lymph # (Auto) 1.94 (1.20-3.40) K/uL Dupage # (Auto) 0.83 H (0.11-0.59) K/uL Eos # (Auto) 0.05 (0.00-0.50) K/uL Baso # (Auto) 0.08 (0.00-0.20) K/uL Immature Gran # (Auto) 0.13 (0.01-0.20) K/uL Sodium 133 L (136-145) mmol/L Potassium 3.1 L (3.5-5.1) mmol/L Chloride 99 (98-107) mmol/L Carbon Dioxide 23 (21-32) mmol/L Anion Gap 11 (3-11) BUN 39 H (6-23) mg/dl Creatinine 0.82 (0.6-1.2) mg/dl Est Cr Clr Drug Dosing 62.9 ml/min eGFR 84.95 BUN/Creatinine Ratio 47.6 H (10-20) Glucose 158 H (70-99(Fasting)) mg/dl Calcium 9.9 (8.6-10.3) mg/dl Phosphorus Pending Magnesium Pending Total Bilirubin 1.0 (0.2-1.0) mg/dl AST 19 (13-39) U/L ALT 14 (7-52) U/L Alkaline Phosphatase 62 (34-104) U/L Total Protein 8.1 (6.0-8.3) gm/dl Albumin 4.7 (3.4-5.0) gm/dl Globulin 3.4 (2.5-4.0) gm/dl Albumin/Globulin Ratio 1.4 (0.9-2) Lipase 12 (11-82) U/L Adenovirus (PCR) Not Detected (NotDetected) B. pertussis DNA (PCR) Not Detected (NotDetected) B.parapertussis DNA PCR Not Detected (NotDetected) C. pneumoniae DNA (PCR) Not Detected (NotDetected) Coronavirus OC43 (PCR) Not Detected (NotDetected) Coronavirus HKU1 (PCR) Not Detected (NotDetected) Coronavirus 229E (PCR) Not Detected (NotDetected) SARS-CoV-2 (PCR) Not Detected (NotDetected) Coronavirus NL63 (PCR) Not Detected (NotDetected) Human Metapneumovir PCR Not Detected (NotDetected) Influenza Type A (PCR) Not Detected (NotDetected) Influenza Type B (PCR) Not Detected (NotDetected) M. pneumoniae (PCR) Not Detected (NotDetected) Parainfluenza 1 (PCR) Not Detected (NotDetected) Parainfluenza 2 (PCR) Not Detected (NotDetected) Parainfluenza 3 (PCR) Not Detected (NotDetected) Parainfluenza 4 (PCR) Not Detected (NotDetected) RSV (PCR) Not Detected (NotDetected) Entero/Rhino (PCR) Not Detected (NotDetected) Diagnostic Findings CT abd pelvis FINDINGS: Limitations: None. Lung bases: No abnormality noted. Pleural space: No visualized pleural effusion or pneumothorax. Heart: No abnormality noted. Mediastinum: No abnormality noted. ABDOMEN: Liver: No abnormality noted. Gallbladder and bile ducts: Cholecystectomy. No ductal dilation or stone noted. Pancreas: Homogeneous enhancement. No mass, inflammation or ductal dilation. Spleen: No significant abnormality noted. Adrenals: No significant abnormality noted. Kidneys and ureters: Normal enhancement. No mass, hydronephrosis or visualized stone. Stomach and bowel: Postoperative changes gastric bypass stable with balloon noted in the gastric pouch which contains a small amount of fluid. The distal stomach and duodenum are collapsed containing a small amount of fluid. There is no associated inflammation. Rectal staple line noted. Moderate amounts of stool and gas in the rectosigmoid there is no intestinal obstruction. Diffuse colonic diverticulosis noted. PELVIS: Appendix: No findings to suggest acute appendicitis. Bladder: No filling defects to suggest mass or large stone. No inflammation. Reproductive: No abnormalities noted. ABDOMEN and PELVIS: Intraperitoneal space: No free air. No significant fluid collection. Bones/joints: No acute changes. Soft tissues: No significant abnormality noted. Vasculature: No abdominal aortic aneurysm. Lymph nodes: No pathologically enlarged lymph nodes. IMPRESSION: 1. There is no acute abnormality such as diverticulitis or obstruction. No evidence of internal hernia or intussusception. Impression gastrostomy balloon inflated in the gastric pouch. 2. Diffuse colonic diverticulosis without diverticulitis. (3) Leukocytosis Leukocytosis type: unspecified Qualified Code(s): D72.829 - Elevated white blood cell count, unspecified
[2024-07-19 11:50] LABS: Magnesium 1.9 mg/dl (1.7-2.4); Phosphorus 3.3 mg/dl (2.5-4.9)
[2024-07-19 11:58] LABS: Appearance Urine Clear (Clear); Bacteria Urine Automated None Seen (None Seen); Bilirubin Urine Negative (Negative); Blood Urine 1+ (Negative); Color Urine Yellow; Epithelial Cell Urine Auto 0-2 /hpf (0-2); Glucose Urine UA 1+ (Negative); Ketones Urine 1+ (Negative); Leukocyte Esterase Urine Negative (Negative); Mucus Urine Present (None Prsent); Nitrite Urine Negative (Negative); Protein Urine 1+ (Negative); RBC Urine Automated 0-2 /hpf (0-2); Specific Gravity Urine 1.035 (1.000-1.030); Urobilinogen Urine Negative (Negative); WBC Urine Automated 0-5 /hpf (0-5)
[2024-07-19] MEDS: FOLIC ACID 1 MG in SYRINGE 9.8 ML IV STA (12:15)
[2024-07-19] MEDS: THIAMINE HCL 100 MG in SYRINGE 9 ML IV STA (12:15)
[2024-07-19] MEDS: ACETAMINOPHEN 1,000 MG/100 ML VIAL IV PRN (14:47)
[2024-07-19] MEDS ORDERED: diphenhydrAMINE 50 MG/ML VIAL IV ONE (15:00)
[2024-07-19] MEDS: POTASSIUM CHLORIDE / WTR 10 MEQ/100 ML PLCT IV SCH (16:04)
[2024-07-19] MEDS: MoRPHine SULFATE 2 MG/ML CARP IV STA (16:14)
--- NOTE | 2024-07-19 16:24 | CT Scan Report ---
CT head without contrast History: Nausea Comparison: September 08, 2023 Technique: Using multidetector thin collimation helical acquisition technique, axial, coronal and sagittal CT images from the skull base to the vertex were obtained without intravenous contrast. Dose reduction techniques were achieved by using automatic exposure control and/or adjustment of mA and/or kV according to patient size and/or use of iterative reconstruction technique. Findings: No intracranial hemorrhage, mass-effect, or midline shift. The ventricles are proportionate to the cerebral sulci. The harris to white matter differentiation of the cerebral hemispheres is preserved. The basal cisterns are patent. Prior large left craniotomy change seen. There is an area of encephalomalacia involving the left basal ganglia and external capsule. The visualized paranasal sinuses are clear. Mastoid air cells are clear. Impression: No acute intracranial pathology. Electronically signed by Senthil Chou 07-19-2024 4:24 PM
[2024-07-19] MEDS: FAMOTIDINE 20MG IV PUSH 20 MG/5 ML SYR IV STA (17:44)
[2024-07-19] MEDS: diphenhydrAMINE 50 MG/ML VIAL IV ONE (18:01)
[2024-07-19 19:52] VITALS: RESP 16
[2024-07-19 19:56] LABS: Hemoglobin 13.5 g/dl (12.0-16.0); Mean Corpuscular Hemoglobin 30.1 pg (25.0-34.0); Mean Corpuscular Hgb Conc 35.5 g/dL (32.0-36.0); Mean Corpuscular Volume 84.8 fL (80.0-100.0); Mean Platelet Volume 10.9 fL (9.4-12.4); Platelet Count 250 K/uL (130-400); RDW Coefficient of Variation 12.7 % (11.5-14.5); RDW Standard Deviation 39.2 fL (36.4-46.3); Red Blood Count 4.48 M/uL (4.20-5.40); White Blood Count 8.61 K/ul (4.8-10.8)
[2024-07-19 20:06] LABS: BUN Creatinine Ratio 32.1 (10-20); Calcium 8.7 mg/dl (8.6-10.3); Creatinine Clr Calc Pharmacy 92.1 ml/min; Magnesium 1.5 mg/dl (1.7-2.4); Phosphorus 2.7 mg/dl (2.5-4.9); Potassium 3.9 mmol/L (3.5-5.1)
[2024-07-19] MEDS: MAGNESIUM SULFATE / D5W 1 GM/100 ML BAG IV SCH (20:35)
[2024-07-20] MEDS: KETOROLAC TROMETHAMINE 15 MG/ML VIAL IV ONE ×2 (00:11→05:37)
[2024-07-20] MEDS ORDERED: ONDANSETRON INJ 2 MG/ML 2 ML VIAL IV PRN (07:39)
[2024-07-20 08:55] LABS: Hematocrit (blood only) 36.9 % (37.0-47.0); Hemoglobin 12.6 g/dl (12.0-16.0); Mean Corpuscular Hemoglobin 29.9 pg (25.0-34.0); Mean Corpuscular Hgb Conc 34.1 g/dL (32.0-36.0); Mean Corpuscular Volume 87.6 fL (80.0-100.0); Mean Platelet Volume 10.7 fL (9.4-12.4); Platelet Count 230 K/uL (130-400); RDW Coefficient of Variation 12.9 % (11.5-14.5); RDW Standard Deviation 41.1 fL (36.4-46.3); Red Blood Count 4.21 M/uL (4.20-5.40); White Blood Count 6.58 K/ul (4.8-10.8)
[2024-07-20] MEDS ORDERED: PANTOprazole 40 MG TAB PEG SCH (09:00)
[2024-07-20] MEDS ORDERED: LANSOPRAZOLE 30 MG SOLTAB NG SCH (09:00)
[2024-07-20 09:15] LABS: BUN Creatinine Ratio 25.4 (10-20); Calcium 8.8 mg/dl (8.6-10.3); Creatinine Clr Calc Pharmacy 87.2 ml/min; Magnesium 2.3 mg/dl (1.7-2.4); Phosphorus 2.2 mg/dl (2.5-4.9); Potassium 3.3 mmol/L (3.5-5.1)
[2024-07-20 09:33] LABS: Thyroid Stimulating Hormone 0.594 uIu/ml (0.300-4.500)
[2024-07-20] MEDS: FOLIC ACID 1 MG in SYRINGE 9.8 ML IV SCH (09:41)
[2024-07-20] MEDS: LANSOPRAZOLE 30 MG SOLTAB PEG SCH (09:43)
--- NOTE | 2024-07-20 09:47 | Gastrointestinal Consultation ---
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 Her outpatient gastrointestional evaluation has been unremarkable including evaluation by her bariatric surgeion and her symptoms are thought to have a central origin - KUB w/ Gastrografin for tube evaluation - NPO for bowel rest and until tube study complete - If study unremarkable, advance feeding as tolerated - IVF maintenance - Antiemetics as needed - Cautious use of Reglan - Bowel regimen - May use Miralax 1-2 capfuls daily - Ultimately needs follow up with her GI team at [facility] including her nutrition team I spent a total of 60 minutes on the date of service in review of patient's record, and previously obtained information in person and appropriate medical visit, discussion and education of plan, with patient and/or caregiver, placing orders for tests/referral/procedures as medically necessary and documentation of pertinent clinical information in patient's medical records for their visit today. Supervising Physician Co-Signing Physician Notes Patient has had no further vomiting. She does not appear in any distress. The Gastrografin study through the PEG shows its an extruded stomach. There does not appear to be evidence of outlet obstruction the contrast passes into the duodenum. Examining the actual PEG there does not appear to be any infection. There is a small bit of granulation tissue at approximately 9 o'clock position. This could ooze and occasionally have some blood patient reassured in that regard the abdomen actually is soft itself. There was maybe about a 8 to 9 cm laxity between the bolster and the internal balloon. The position of the balloon is fairly distal by necessity after her surgery. Migration of the balloon into the pylorus could account for episodes of abdominal pain nausea vomiting. Advance the bolster slightly. He remains freely rotatable. I instructed the patient on preventing the tube or balloon from migrating into the pylorus. Also stressed the importance of not overtightening the bolster so not to cause the balloon to be pulled into the abdominal wall so call very bumper syndrome. As long as the bolsters rotatable the feeding tube will not be too tight. I recommend we try this without further evaluation investigation I think she can be discharged. Resume previous medication and diet. 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 Pt was seen and evaluated, chart reviewed.d She is a poor historian. She notes that she has had episodic nausea/vomiting and food aversion at least once monthly. A feeding tube was placed to aid in nutritional support given weight loss. It was previously thought her nausea/vomiting was related to a central origin and GI workup was largely unremarkable. CTAP 2023: There is no acute abnormality such as diverticulitis or obstruction. No evidence of internal hernia or intussusception. Impression gastrostomy balloon inflated in the gastric pouch. Diffuse colonic diverticulosis without diverticulitis. KUB 2023: A moderate amount of stool is noted within the large bowel. EGD 2023: - Normal esophagus. - Z-line regular. - Maryuri-en-Y gastrojejunostomy with gastrojejunal anastomosis characterized by healthy appearing mucosa. Biopsied. - Normal examined jejunum. Colonoscopy 2023: The examined portion of the terminal ileum appeared normal. - The examined colon appeared normal. Biopsied. - Diverticulosis in the ascending and sigmoid colon - most prominent in the sigmoid colon. - Internal hemorrhoids. Allergies Allergy/AdvReac Type Severity Reaction Status Date / Time No Known Allergies Allergy Verified 02/24/24 11:06 Home Medications Medication Instructions Recorded Confirmed Type metoclopramide HCl 10 mg tablet 10 mg PO UD PRN Nausea And Vomiting 04/27/24 07/19/24 History ondansetron 4 mg disintegrating 4 mg PO UD PRN Nausea And Vomiting 04/27/24 07/19/24 History tablet sertraline 100 mg tablet 200 mg PO DAILY 05/01/24 07/19/24 History polyethylene glycol 3350 17 gram 17 g PO DAILY PRN Constipation #30 05/03/24 07/19/24 Rx oral powder packet (Miralax) ea clonazepam 1 mg tablet 1 mg PO DAILY 06/27/24 07/19/24 History ondansetron HCl 4 mg tablet 4 mg PO Q8H PRN nausea and 06/27/24 07/19/24 Rx vomiting #15 tabs dicyclomine 10 mg capsule 10 mg PO UD PRN Abdominal Pain 07/19/24 07/19/24 History mirtazapine 15 mg tablet 15 mg PO UD 07/19/24 07/19/24 History Patient History Medical History Pulmonary embolism Endometriosis Hemorrhagic stroke Surgical History History of Maryuri-en-Y gastric bypass H/O wisdom tooth extraction History of partial colectomy History of hysterectomy Hx of cholecystectomy History of appendectomy H/O craniotomy Social History Smoking Status: Current every day smoker Tobacco Type: E-cigarettes / Vaping Second Hand Exposure: No; Do You Dip or Chew Tobacco: No; Hx Alcohol Use: No Hx Substance Use: No Preferred Language: Lao 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 Ability: Impaired 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 Physical Exam Constitutional: WD/WN, vitals as above Respiratory: normal respiratory effort, lungs clear to auscultation Cardiovascular: RRR, no murmur, no edema Gastrointestinal (Abdomen): Percussion/Palpation: + abdomen tender and abdomen soft; no guarding and abdomen not rigid Skin: no rashes, warm and dry Results & Data Vital Signs (Past 12 Hours) Vital Signs Temp Pulse Pulse Resp BP BP Pulse Ox 07/20/24 08:31 97.3 F L 56 L 16 91/58 L 97 07/20/24 07:28 62 07/20/24 03:28 97.3 F L 57 L 16 106/69 99 07/19/24 23:54 07/19/24 23:53 78 07/19/24 22:00 97.9 F 75 16 92/58 L 96 O2 Del Method 07/20/24 08:31 Room Air 07/20/24 07:28 07/20/24 03:28 Room Air 07/19/24 23:54 Room Air 07/19/24 23:53 07/19/24 22:00 Room Air Laboratory Results 07/20/24 07/20/24 07/19/24 Range/Units 09:16 08:32 19:19 WBC 6.58 8.61 D (4.8-10.8) K/ul RBC 4.21 4.48 (4.20-5.40) M/uL Hgb 12.6 13.5 (12.0-16.0) g/dl Hct 36.9 L 38.0 (37.0-47.0) % MCV 87.6 84.8 (80.0-100.0) fL MCH 29.9 30.1 (25.0-34.0) pg MCHC 34.1 35.5 (32.0-36.0) g/dL RDW Std Deviation 41.1 39.2 (36.4-46.3) fL RDW Coeff of Aysha 12.9 12.7 (11.5-14.5) % Plt Count 230 250 (130-400) K/uL MPV 10.7 10.9 (9.4-12.4) fL Immature Gran % (Auto) % Neut % (Auto) % Lymph % (Auto) % Williams % (Auto) % Eos % (Auto) % Baso % (Auto) % Neut # (Auto) (1.40-6.50) K/uL Lymph # (Auto) (1.20-3.40) K/uL Williams # (Auto) (0.11-0.59) K/uL Eos # (Auto) (0.00-0.50) K/uL Baso # (Auto) (0.00-0.20) K/uL Immature Gran # (Auto) (0.01-0.20) K/uL Sodium 137 133 L (136-145) mmol/L Potassium 3.3 L 3.9 D (3.5-5.1) mmol/L Chloride 104 102 (98-107) mmol/L Carbon Dioxide 29 22 (21-32) mmol/L Anion Gap 4 9 (3-11) BUN 15 18 D (6-23) mg/dl Creatinine 0.59 L 0.56 L (0.6-1.2) mg/dl Est Cr Clr Drug Dosing 87.2 92.1 ml/min eGFR 107.03 108.39 BUN/Creatinine Ratio 25.4 H 32.1 H (10-20) Glucose 96 93 (70-99(Fasting)) mg/dl Calcium 8.8 8.7 (8.6-10.3) mg/dl Phosphorus 2.2 L 2.7 (2.5-4.9) mg/dl Magnesium 2.3 1.5 L (1.7-2.4) mg/dl Total Bilirubin (0.2-1.0) mg/dl AST (13-39) U/L ALT (7-52) U/L Alkaline Phosphatase (34-104) U/L Total Protein (6.0-8.3) gm/dl Albumin (3.4-5.0) gm/dl Globulin (2.5-4.0) gm/dl Albumin/Globulin Ratio (0.9-2) Lipase (11-82) U/L TSH 0.594 (0.300-4.500) uIu/ml Urine Color Urine Appearance (Clear) Urine pH (4.5-7.5) Ur Specific [place] (1.000-1.030) Urine Protein (Negative) Urine Glucose (UA) (Negative) Urine Ketones (Negative) Urine Blood (Negative) Urine Nitrite (Negative) Urine Bilirubin (Negative) Urine Urobilinogen (Negative) Ur Leukocyte Esterase (Negative) Urine WBC (Auto) (0-5) /hpf Urine RBC (Auto) (0-2) /hpf U Hyaline Cast (Auto) (0-2) /lpf U Epithel Cells (Auto) (0-2) /hpf Urine Bacteria (Auto) (None Seen) Urine Mucus (None Prsent) Urine Opiates Screen Pending Ur Methadone, Qual Pending Urine Fentanyl Screen Pending Urine Barbiturates Pending Ur Phencyclidine (PCP) Pending U Amphetamin/Meth Scrn Pending MDMA (Ecstasy) Screen Pending U Benzodiazepines Scrn Pending Ur Cocaine Metabolite Pending U Marijuana (THC) Screen Pending Adenovirus (PCR) (NotDetected) B. pertussis DNA (PCR) (NotDetected) B.parapertussis DNA PCR (NotDetected) C. pneumoniae DNA (PCR) (NotDetected) Coronavirus OC43 (PCR) (NotDetected) Coronavirus HKU1 (PCR) (NotDetected) Coronavirus 229E (PCR) (NotDetected) SARS-CoV-2 (PCR) (NotDetected) Coronavirus NL63 (PCR) (NotDetected) Human Metapneumovir PCR (NotDetected) Influenza Type A (PCR) (NotDetected) Influenza Type B (PCR) (NotDetected) M. pneumoniae (PCR) (NotDetected) Parainfluenza 1 (PCR) (NotDetected) Parainfluenza 2 (PCR) (NotDetected) Parainfluenza 3 (PCR) (NotDetected) Parainfluenza 4 (PCR) (NotDetected) RSV (PCR) (NotDetected) Entero/Rhino (PCR) (NotDetected) 07/19/24 07/19/24 07/19/24 Range/Units 11:43 09:51 09:30 WBC 20.56 H (4.8-10.8) K/ul RBC 5.40 (4.20-5.40) M/uL Hgb 16.0 (12.0-16.0) g/dl Hct 46.2 (37.0-47.0) % MCV 85.6 (80.0-100.0) fL MCH 29.6 (25.0-34.0) pg MCHC 34.6 (32.0-36.0) g/dL RDW Std Deviation 39.9 (36.4-46.3) fL RDW Coeff of Aysha 13.0 (11.5-14.5) % Plt Count 338 (130-400) K/uL MPV 11.1 (9.4-12.4) fL Immature Gran % (Auto) 0.6 % Neut % (Auto) 85.4 % Lymph % (Auto) 9.4 % Williams % (Auto) 4.0 % Eos % (Auto) 0.2 % Baso % (Auto) 0.4 % Neut # (Auto) 17.53 H (1.40-6.50) K/uL Lymph # (Auto) 1.94 (1.20-3.40) K/uL Williams # (Auto) 0.83 H (0.11-0.59) K/uL Eos # (Auto) 0.05 (0.00-0.50) K/uL Baso # (Auto) 0.08 (0.00-0.20) K/uL Immature Gran # (Auto) 0.13 (0.01-0.20) K/uL Sodium 133 L (136-145) mmol/L Potassium 3.1 L (3.5-5.1) mmol/L Chloride 99 (98-107) mmol/L Carbon Dioxide 23 (21-32) mmol/L Anion Gap 11 (3-11) BUN 39 H (6-23) mg/dl Creatinine 0.82 (0.6-1.2) mg/dl Est Cr Clr Drug Dosing 62.9 ml/min eGFR 84.95 BUN/Creatinine Ratio 47.6 H (10-20) Glucose 158 H (70-99(Fasting)) mg/dl Calcium 9.9 (8.6-10.3) mg/dl Phosphorus 3.3 (2.5-4.9) mg/dl Magnesium 1.9 (1.7-2.4) mg/dl Total Bilirubin 1.0 (0.2-1.0) mg/dl AST 19 (13-39) U/L ALT 14 (7-52) U/L Alkaline Phosphatase 62 (34-104) U/L Total Protein 8.1 (6.0-8.3) gm/dl Albumin 4.7 (3.4-5.0) gm/dl Globulin 3.4 (2.5-4.0) gm/dl Albumin/Globulin Ratio 1.4 (0.9-2) Lipase 12 (11-82) U/L TSH (0.300-4.500) uIu/ml Urine Color Yellow Urine Appearance Clear (Clear) Urine pH 5.0 (4.5-7.5) Ur Specific [place] 1.035 H (1.000-1.030) Urine Protein 1+ H (Negative) Urine Glucose (UA) 1+ H (Negative) Urine Ketones 1+ H (Negative) Urine Blood 1+ H (Negative) Urine Nitrite Negative (Negative) Urine Bilirubin Negative (Negative) Urine Urobilinogen Negative (Negative) Ur Leukocyte Esterase Negative (Negative) Urine WBC (Auto) 0-5 (0-5) /hpf Urine RBC (Auto) 0-2 (0-2) /hpf U Hyaline Cast (Auto) 6-10 H (0-2) /lpf U Epithel Cells (Auto) 0-2 (0-2) /hpf Urine Bacteria (Auto) None Seen (None Seen) Urine Mucus Present A (None Prsent) Urine Opiates Screen Ur Methadone, Qual Urine Fentanyl Screen Urine Barbiturates Ur Phencyclidine (PCP) U Amphetamin/Meth Scrn MDMA (Ecstasy) Screen U Benzodiazepines Scrn Ur Cocaine Metabolite U Marijuana (THC) Screen Adenovirus (PCR) Not Detected (NotDetected) B. pertussis DNA (PCR) Not Detected (NotDetected) B.parapertussis DNA PCR Not Detected (NotDetected) C. pneumoniae DNA (PCR) Not Detected (NotDetected) Coronavirus OC43 (PCR) Not Detected (NotDetected) Coronavirus HKU1 (PCR) Not Detected (NotDetected) Coronavirus 229E (PCR) Not Detected (NotDetected) SARS-CoV-2 (PCR) Not Detected (NotDetected) Coronavirus NL63 (PCR) Not Detected (NotDetected) Human Metapneumovir PCR Not Detected (NotDetected) Influenza Type A (PCR) Not Detected (NotDetected) Influenza Type B (PCR) Not Detected (NotDetected) M. pneumoniae (PCR) Not Detected (NotDetected) Parainfluenza 1 (PCR) Not Detected (NotDetected) Parainfluenza 2 (PCR) Not Detected (NotDetected) Parainfluenza 3 (PCR) Not Detected (NotDetected) Parainfluenza 4 (PCR) Not Detected (NotDetected) RSV (PCR) Not Detected (NotDetected) Entero/Rhino (PCR) Not Detected (NotDetected) PG Care Time/CCT Total # of Minutes Spent Total Time Spent with Patient: Total time spent is greater than 50% in coordination of care (as documented) at patient's floor/unit and/or counseling patient: Coding Level of Care Code 43661 IN/OBS CONSULT LVL 4,60M Diagnoses Gastrostomy present Z93.1
[2024-07-20 09:50] LABS: Amphetamines+Metham, Urine Neg (Neg); Barbiturates, Urine Neg (Neg); Benzodiazepine, Urine Pos (Neg); Cocaine, Urine Neg (Neg); Fentanyl, Urine Neg (Neg); MDMA (Ecstacy), Urine Neg (Neg); Marijuana, Urine Pos (Neg); Methadone, Urine Neg (Neg); Opiate, Urine Pos (Neg); Phencyclidine, Urine Neg (Neg)
[2024-07-20] MEDS: THIAMINE HCL 200 MG in SODIUM CHLORIDE 0.9% 50 ML IV SCH (09:55)
[2024-07-20] MEDS: clonazePAM 0.5 MG TAB PO STA (11:21)
[2024-07-20] MEDS: SERTRALINE HCL 100 MG TABLET PO SCH (11:22)
--- NOTE | 2024-07-20 11:32 | Electrocardiogram Report ---
Test Reason : Blood Pressure : */* mmHG Vent. Rate : 87 BPM Atrial Rate : 87 BPM P-R Int : 144 ms QRS Dur : 74 ms QT Int : 406 ms P-R-T Axes : 72 80 61 degrees QTcB Int : 488 ms Normal sinus rhythm Abnormal ECG When compared with ECG of 27-Jun-2024 11:26, T wave inversion more evident in Anterior leads Confirmed by Senthil Carmen ([id number] on 07/20/2024 11:31:34 AM Referred By: REFERRED SELF Confirmed By: Senthil Carmen
[2024-07-20 11:36] VITALS: TEMP 97.5; O2SAT 99
[2024-07-20] MEDS: D5W AND LACTATED RINGERS 1,000 ML IV SCH (13:09)
--- NOTE | 2024-07-20 13:21 | Hospitalist Progress Note ---
Date of Service July 20, 2024 Assessment & Plan (1) Intractable nausea and vomiting: Plan: -has hx of gastric bypass and G tube placement -has had numerous GI evaluations without clear source of pain or nausea/vomiting -concern for centrally mediated nausea/vomiting -imaging and lab work in ED unremarkable Plan: -GI consult, appreciate recs -prn zofran for nausea/vomiting -needs to follow up GI and PCP outpatient for chronic nausea/vomiting workup -opioids worsen GI motility, patient asking for benzos/opioids, will prescribe clonazepam home medication only, no indication for opioid therapies at this time -prn bentyl -will check tox screen, TSH to complete workup (2) Left lower quadrant abdominal pain: Plan: -see above, no anatomic correlation -GI consult for assistance (3) Leukocytosis: Plan: -likely reactive, hemodynamics and labs reassuring, imaging reassuring (4) History of hemorrhagic cerebrovascular accident (CVA) with residual deficit: Plan: -significant event -concern that this may be causing the intractable nausea/vomiting, however this is dx of exclusion Plan: -f/u with neurology outpatient Plan Feeding/fluids: NPO for bowel rest Analgesia: tylenol, bentyl Sedation: na Thromboprophylaxis: start lovenox Head up position: na Ulcer prophylaxis: protonix daily Glycemic control: na Spontaneous breathing trial: na Bowel care: miralax Indwelling catheter removal: na Deescalation of antibiotics: na Admission and Anticipated Discharge Date Admission Date: July 19, 2024 Subjective 54-year-old male with past medical history of severe CVA with residual deficits, unintentional weight loss status post G-tube placement, concern for centrally mediated intractable nausea and vomiting chronic in nature, ESTEBAN, GERD, depression, anxiety who presents for intractable nausea and vomiting. Of note, patient has had numerous admissions for nausea and vomiting, without a clear found source. In the ED, CT abdomen pelvis was unremarkable and lab work was unremarkable as well patient rarely eats significant amount of food by mouth, generally putting food into the G-tube. ADmitted to medicine for observation. Patient seen and examined at bedside. Patient states she is not doing well today. She barely eats anything by mouth. Endorses some abdominal pain. Asked for clonazepam and other pain medications by name. Review of Systems Review of Systems: CONSTITUTIONAL: Patient denies fevers, chills, sweats and weight changes. EYES: Patient denies any visual symptoms. EARS, NOSE, AND THROAT: No difficulties with hearing. No symptoms of rhinitis or sore throat. CARDIOVASCULAR: Patient denies chest pains, palpitations, orthopnea and paroxysmal nocturnal dyspnea. RESPIRATORY: No dyspnea on exertion, no wheezing or cough. GI: abdominal pain, nausea, vomiting : No urinary hesitancy or dribbling. No nocturia or urinary frequency. No abnormal urethral discharge. MUSCULOSKELETAL: No myalgias or arthralgias. NEUROLOGIC: No chronic headaches, no seizures. Patient denies numbness, tingling or weakness. PSYCHIATRIC: Patient denies problems with mood disturbance. No problems with anxiety. ENDOCRINE: No excessive urination or excessive thirst. DERMATOLOGIC: Patient denies any rashes or skin changes. Physical Exam Physical Exam: Gen: A&O 3 NAD HEENT: NCAT, EOMI, not icteric. External ears normal. No rhinorrhea. Moist mucous membranes. Neck: Supple, full range of motion, no observable masses, No meningeal sign. Lungs: No Respiratory distress. CV: RRR, no edema. Abdomen: Soft, nondistended, No rebound tenderness. MSK: No joint swelling, no redness. Skin: No rashes, petechiae, lesions. Normal color per patient. Neuro: Normal Gait, Grossly intact. Psych: flat affect Results & Data Results & Data Vital Signs (Past 12 Hours) Vital Signs Temp Pulse Pulse Resp BP BP Pulse Ox 07/20/24 11:35 36.4 C L 58 L 16 94/54 L 99 07/20/24 08:31 36.3 C L 56 L 16 91/58 L 97 07/20/24 07:28 62 07/20/24 03:28 36.3 C L 57 L 16 106/69 99 O2 Del Method 07/20/24 11:35 Room Air 07/20/24 08:31 Room Air 07/20/24 07:28 07/20/24 03:28 Room Air Laboratory Results Laboratory Results WBC 6.58 K/ul (4.8-10.8) 07/20/24 08:32 RBC 4.21 M/uL (4.20-5.40) 07/20/24 08:32 Hgb 12.6 g/dl (12.0-16.0) 07/20/24 08:32 Hct 36.9 % (37.0-47.0) L 07/20/24 08:32 MCV 87.6 fL (80.0-100.0) 07/20/24 08:32 MCH 29.9 pg (25.0-34.0) 07/20/24 08:32 MCHC 34.1 g/dL (32.0-36.0) 07/20/24 08:32 RDW Std Deviation 41.1 fL (36.4-46.3) 07/20/24 08:32 RDW Coeff of Aysha 12.9 % (11.5-14.5) 07/20/24 08:32 Plt Count 230 K/uL (130-400) 07/20/24 08:32 MPV 10.7 fL (9.4-12.4) 07/20/24 08:32 Immature Gran % (Auto) 0.6 % 07/19/24 09:30 Neut % (Auto) 85.4 % 07/19/24 09:30 Lymph % (Auto) 9.4 % 07/19/24 09:30 [place] % (Auto) 4.0 % 07/19/24 09:30 Eos % (Auto) 0.2 % 07/19/24 09:30 Baso % (Auto) 0.4 % 07/19/24 09:30 Neut # (Auto) 17.53 K/uL (1.40-6.50) H 07/19/24 09:30 Lymph # (Auto) 1.94 K/uL (1.20-3.40) 07/19/24 09:30 [place] # (Auto) 0.83 K/uL (0.11-0.59) H 07/19/24 09:30 Eos # (Auto) 0.05 K/uL (0.00-0.50) 07/19/24 09:30 Baso # (Auto) 0.08 K/uL (0.00-0.20) 07/19/24 09:30 Immature Gran # (Auto) 0.13 K/uL (0.01-0.20) 07/19/24 09:30 Sodium 137 mmol/L (136-145) 07/20/24 08:32 Potassium 3.3 mmol/L (3.5-5.1) L 07/20/24 08:32 Chloride 104 mmol/L (98-107) 07/20/24 08:32 Carbon Dioxide 29 mmol/L (21-32) 07/20/24 08:32 Anion Gap 4 (3-11) 07/20/24 08:32 BUN 15 mg/dl (6-23) 07/20/24 08:32 Creatinine 0.59 mg/dl (0.6-1.2) L 07/20/24 08:32 Est Cr Clr Drug Dosing 87.2 ml/min 07/20/24 08:32 eGFR 107.03 07/20/24 08:32 BUN/Creatinine Ratio 25.4 (10-20) H 07/20/24 08:32 Glucose 96 mg/dl (70-99(Fasting)) 07/20/24 08:32 Calcium 8.8 mg/dl (8.6-10.3) 07/20/24 08:32 Phosphorus 2.2 mg/dl (2.5-4.9) L 07/20/24 08:32 Magnesium 2.3 mg/dl (1.7-2.4) 07/20/24 08:32 Total Bilirubin 1.0 mg/dl (0.2-1.0) 07/19/24 09:30 AST 19 U/L (13-39) 07/19/24 09:30 ALT 14 U/L (7-52) 07/19/24 09:30 Alkaline Phosphatase 62 U/L (34-104) 07/19/24 09:30 Total Protein 8.1 gm/dl (6.0-8.3) 07/19/24 09:30 Albumin 4.7 gm/dl (3.4-5.0) 07/19/24 09:30 Globulin 3.4 gm/dl (2.5-4.0) 07/19/24 09:30 Albumin/Globulin Ratio 1.4 (0.9-2) 07/19/24 09:30 Lipase 12 U/L (11-82) 07/19/24 09:30 TSH 0.594 uIu/ml (0.300-4.500) 07/20/24 08:32 Urine Color Yellow 07/19/24 11:43 Urine Appearance Clear (Clear) 07/19/24 11:43 Urine pH 5.0 (4.5-7.5) 07/19/24 11:43 Ur Specific [place] 1.035 (1.000-1.030) H 07/19/24 11:43 Urine Protein 1+ (Negative) H 07/19/24 11:43 Urine Glucose (UA) 1+ (Negative) H 07/19/24 11:43 Urine Ketones 1+ (Negative) H 07/19/24 11:43 Urine Blood 1+ (Negative) H 07/19/24 11:43 Urine Nitrite Negative (Negative) 07/19/24 11:43 Urine Bilirubin Negative (Negative) 07/19/24 11:43 Urine Urobilinogen Negative (Negative) 07/19/24 11:43 Ur Leukocyte Esterase Negative (Negative) 07/19/24 11:43 Urine WBC (Auto) 0-5 /hpf (0-5) 07/19/24 11:43 Urine RBC (Auto) 0-2 /hpf (0-2) 07/19/24 11:43 U Hyaline Cast (Auto) 6-10 /lpf (0-2) H 07/19/24 11:43 U Epithel Cells (Auto) 0-2 /hpf (0-2) 07/19/24 11:43 Urine Bacteria (Auto) None Seen (None Seen) 07/19/24 11:43 Urine Mucus Present (None Prsent) A 07/19/24 11:43 Urine Opiates Screen Pos (Neg) H 07/20/24 09:16 Ur Methadone, Qual Neg (Neg) 07/20/24 09:16 Urine Fentanyl Screen Neg (Neg) 07/20/24 09:16 Urine Barbiturates Neg (Neg) 07/20/24 09:16 Ur Phencyclidine (PCP) Neg (Neg) 07/20/24 09:16 U Amphetamin/Meth Scrn Neg (Neg) 07/20/24 09:16 MDMA (Ecstasy) Screen Neg (Neg) 07/20/24 09:16 U Benzodiazepines Scrn Pos (Neg) H 07/20/24 09:16 Ur Cocaine Metabolite Neg (Neg) 07/20/24 09:16 U Marijuana (THC) Screen Pos (Neg) H 07/20/24 09:16 Adenovirus (PCR) Not Detected (NotDetected) 07/19/24 09:51 B. pertussis DNA (PCR) Not Detected (NotDetected) 07/19/24 09:51 B.parapertussis DNA PCR Not Detected (NotDetected) 07/19/24 09:51 C. pneumoniae DNA (PCR) Not Detected (NotDetected) 07/19/24 09:51 Coronavirus OC43 (PCR) Not Detected (NotDetected) 07/19/24 09:51 Coronavirus HKU1 (PCR) Not Detected (NotDetected) 07/19/24 09:51 Coronavirus 229E (PCR) Not Detected (NotDetected) 07/19/24 09:51 SARS-CoV-2 (PCR) Not Detected (NotDetected) 07/19/24 09:51 Coronavirus NL63 (PCR) Not Detected (NotDetected) 07/19/24 09:51 Human Metapneumovir PCR Not Detected (NotDetected) 07/19/24 09:51 Influenza Type A (PCR) Not Detected (NotDetected) 07/19/24 09:51 Influenza Type B (PCR) Not Detected (NotDetected) 07/19/24 09:51 M. pneumoniae (PCR) Not Detected (NotDetected) 07/19/24 09:51 Parainfluenza 1 (PCR) Not Detected (NotDetected) 07/19/24 09:51 Parainfluenza 2 (PCR) Not Detected (NotDetected) 07/19/24 09:51 Parainfluenza 3 (PCR) Not Detected (NotDetected) 07/19/24 09:51 Parainfluenza 4 (PCR) Not Detected (NotDetected) 07/19/24 09:51 RSV (PCR) Not Detected (NotDetected) 07/19/24 09:51 Entero/Rhino (PCR) Not Detected (NotDetected) 07/19/24 09:51 Impressions Abdomen/Pelvis CT 07/19/24 09:28 EXAM: CT Abdomen and Pelvis With Intravenous Contrast INDICATION: Nausea and vomiting. Left lower quadrant pain. TECHNIQUE: Axial computed tomography images of the abdomen and pelvis with intravenous contrast. Sagittal and coronal reformatted images were created and reviewed. This CT exam was performed using one or more of the following dose reduction techniques: automated exposure control, adjustment of the mA and/or kV according to patient size, and/or use of iterative reconstruction technique. CONTRAST: 94ml of Optiray 320 was administered intravenously. COMPARISON: 02/24/2024 FINDINGS: Limitations: None. Lung bases: No abnormality noted. Pleural space: No visualized pleural effusion or pneumothorax. Heart: No abnormality noted. Mediastinum: No abnormality noted. ABDOMEN: Liver: No abnormality noted. Gallbladder and bile ducts: Cholecystectomy. No ductal dilation or stone noted. Pancreas: Homogeneous enhancement. No mass, inflammation or ductal dilation. Spleen: No significant abnormality noted. Adrenals: No significant abnormality noted. Kidneys and ureters: Normal enhancement. No mass, hydronephrosis or visualized stone. Stomach and bowel: Postoperative changes gastric bypass stable with balloon noted in the gastric pouch which contains a small amount of fluid. The distal stomach and duodenum are collapsed containing a small amount of fluid. There is no associated inflammation. Rectal staple line noted. Moderate amounts of stool and gas in the rectosigmoid there is no intestinal obstruction. Diffuse colonic diverticulosis noted. PELVIS: Appendix: No findings to suggest acute appendicitis. Bladder: No filling defects to suggest mass or large stone. No inflammation. Reproductive: No abnormalities noted. ABDOMEN and PELVIS: Intraperitoneal space: No free air. No significant fluid collection. Bones/joints: No acute changes. Soft tissues: No significant abnormality noted. Vasculature: No abdominal aortic aneurysm. Lymph nodes: No pathologically enlarged lymph nodes. IMPRESSION: 1. There is no acute abnormality such as diverticulitis or obstruction. No evidence of internal hernia or intussusception. Impression gastrostomy balloon inflated in the gastric pouch. 2. Diffuse colonic diverticulosis without diverticulitis. ACT 112: Negative or not required by law. Electronically signed by Iza Aguirre 07-19-2024 11:[address] 07/19/24 15:13 CT head without contrast History: Nausea Comparison: September 08, 2023 Technique: Using multidetector thin collimation helical acquisition technique, axial, coronal and sagittal CT images from the skull base to the vertex were obtained without intravenous contrast. Dose reduction techniques were achieved by using automatic exposure control and/or adjustment of mA and/or kV according to patient size and/or use of iterative reconstruction technique. Findings: No intracranial hemorrhage, mass-effect, or midline shift. The ventricles are proportionate to the cerebral sulci. The harris to white matter differentiation of the cerebral hemispheres is preserved. The basal cisterns are patent. Prior large left craniotomy change seen. There is an area of encephalomalacia involving the left basal ganglia and external capsule. The visualized paranasal sinuses are clear. Mastoid air cells are clear. Impression: No acute intracranial pathology. Electronically signed by Senthil Chou 07-19-2024 4:24 PM (3) Leukocytosis Leukocytosis type: unspecified Qualified Code(s): D72.829 - Elevated white blood cell count, unspecified
--- NOTE | 2024-07-20 13:26 | XRay Report ---
XR KUB/Abdomen 1 view CLINICAL HISTORY: tube study, use gastrograffin, check placement TECHNIQUE: 1 view of the abdomen was obtained. Comparison: Comparison is made to abdomen radiograph 06/27/2024 FINDINGS: A gastrostomy tube is seen. When contrast is injected, it passes normally into the stomach and duoden um without evidence of leak. The osseous structures are grossly unremarkable. The bowel gas pattern i s nonobstructive. Small stool burden is seen. IMPRESSION: Satisfactory appearance and placement of gastrostomy tube. ACT 112: Negative or not required by law. Electronically signed by: Francisco J Link M.D. 07/20/2024 1:25 PM
[2024-07-20] MEDS: POLYETHYLENE (MIRALAX) 17 GM PACK PO SCH (14:51)
[2024-07-20] MEDS: POTASSIUM CHLORIDE CRTAB 20 MEQ TABCR PO STA (14:51)
--- NOTE | 2024-07-20 15:06 | Discharge Summary ---
Discharge Summary Date of Service July 20, 2024 Principal Dx & Hospital Course #1 = Principal Diagnosis (1) Intractable nausea and vomiting: -has hx of gastric bypass and G tube placement -has had numerous GI evaluations without clear source of pain or nausea/vomiting -concern for centrally mediated nausea/vomiting -imaging and lab work in ED unremarkable Plan: -GI consult, appreciate recs -prn zofran for nausea/vomiting -needs to follow up GI and PCP outpatient for chronic nausea/vomiting workup -opioids worsen GI motility, patient asking for benzos/opioids, will prescribe clonazepam home medication only, no indication for opioid therapies at this time -prn bentyl -will check tox screen, TSH to complete workup----->positive for THC (2) Left lower quadrant abdominal pain: -see above, no anatomic correlation -GI consult for assistance (3) Leukocytosis: -likely reactive, hemodynamics and labs reassuring, imaging reassuring (4) History of hemorrhagic cerebrovascular accident (CVA) with residual deficit: -significant event -concern that this may be causing the intractable nausea/vomiting, however this is dx of exclusion Plan: -f/u with neurology outpatient Notes For Next Care Provider 54-year-old female with G-tube placement secondary to inability to tolerate p.o., history of intractable nausea and vomiting likely secondary to sequela of hemorrhagic CVA in past Who presents for intractable nausea and vomiting. In the ED, imaging and lab workup remarkable only for mild hypokalemia. Given GI cocktail and admitted to medicine for further workup on medicine, GI was consulted and recommended KUB with Gastrografin. KUB with Gastrografin showed patent G-tube site. Talk screen positive for marijuana. Per discussion with GI patient medically stable from discharge. From medicine perspective given given unremarkable labs, imaging, and improvement in clinical condition patient is medically stable for discharge. Medication Changes From Visit -added PPI, miralax daily Admission HPI Per Admitting Provider 54 yo F w/ hx of pulmonary embolism in 2018 currently not on anticoagulation, history of Maryuri-en-Y gastric bypass in 2020, history of left basal ganglia hemorrhagic CVA requiring craniectomy in October 2022 with eventual cranioplasty in March 2023, moderate protein calorie malnutrition and unintentional weight loss comes because of intractable nausea vomiting and abdominal pain. Pt presents w/ her who also helps provide history, pt herself appears drowsy after receiving multiple antiemetics in the ED. They report she has been having n/v on and off but especially after her g-tube was exchanged in March. She had EGD done in August 2023 which was unremarkable and was thought her symptoms were mostly central in etiology. She now has another major episode of n/v, started about 3 days ago. says tube feeds make it worse, pt tried it last night and had to stop. also says no BM in past few days. Pt denies any fever, chills, chest pain or shortness of breath. Has some abdominal discomfort at umbilicus - says it comes and goes every couple of days. CT abdomen/pelvis was obtained in ED and did not show any acute pathology. Labs significant for leukocytosis. Discharge Exam Gen: A&O 3 NAD HEENT: NCAT, EOMI, not icteric. External ears normal. No rhinorrhea. Moist mucous membranes. Neck: Supple, full range of motion, no observable masses, No meningeal sign. Lungs: No Respiratory distress. CV: RRR, no edema. Abdomen: Soft, nondistended, No rebound tenderness. MSK: No joint swelling, no redness. Skin: No rashes, petechiae, lesions. Normal color per patient. Neuro: Normal Gait, Grossly intact. Psych: flat affect Updated Medication List Medication Instructions Recorded Confirmed Type metoclopramide HCl 10 mg tablet 10 mg PO UD PRN Nausea And Vomiting 04/27/24 07/19/24 History ondansetron 4 mg disintegrating 4 mg PO UD PRN Nausea And Vomiting 04/27/24 07/19/24 History tablet sertraline 100 mg tablet 200 mg PO DAILY 05/01/24 07/19/24 History polyethylene glycol 3350 17 gram 17 g PO DAILY PRN Constipation #30 05/03/24 07/19/24 Rx oral powder packet (Miralax) ea clonazepam 1 mg tablet 1 mg PO DAILY 06/27/24 07/19/24 History ondansetron HCl 4 mg tablet 4 mg PO Q8H PRN nausea and 06/27/24 07/19/24 Rx vomiting #15 tabs dicyclomine 10 mg capsule 10 mg PO UD PRN Abdominal Pain 07/19/24 07/19/24 History mirtazapine 15 mg tablet 15 mg PO UD 07/19/24 07/19/24 History lansoprazole 30 mg delayed 30 mg PEG QAM #30 tabs 07/20/24 Rx release,disintegrating tablet (Prevacid SoluTab) polyethylene glycol 3350 17 gram 17 g PO DAILY #30 ea 07/20/24 Rx oral powder packet (Miralax) Hospital Stay Data Consultations 07/19/24 11:32 ED Decision to Admit Stat 07/19/24 15:20 Consult Gastroenterology Routine Diagnostic Imagining Performed 07/19/24 09:28 CT Abd and Pelvis [CT abd pelvis IV con only] Stat 07/19/24 15:13 CT head/brain wo con Urgent Pending Results Patient Have Any Pending Studies at Discharge: No Discharge Instructions Given to Patient (Per Discharging Provider) 1. Please follow up with PCP, GI, and neurology doctors. 2. Limit marijuana use due to be linked to worsening nausea/vomiting symptoms. 3. Please stay hydrated and use miralax for bowel regiment. Total Time Total Time Spent Total Time Spent (In Minutes): I spent a total of 55 minutes coordinating, documenting, and providing care for this patient excluding time spent in the performance of separately billed services.
[2024-07-20] MEDS: DICYCLOMINE HCL 10 MG CAP PO PRN (15:37)
[2024-07-20 15:48] VITALS: BP 106/69; PULSE 94
[2024-07-21] MEDS ORDERED: ENOXAPARIN INJ 40 MG/0.4 ML SYR SQ SCH (09:00)
[2024-07-21] MEDS ORDERED: clonazePAM 0.5 MG TAB PO PRN (10:08)
[2024-07-22 14:28] LABS: 7-Aminoclonaz, Confirm 610 ng/mL (<25); Codeine Urine NEGATIVE ng/mL (<50); Hydro-Alp Ur, GC/MS NEGATIVE ng/mL (<25); Hydrocodone Urine NEGATIVE ng/mL (<50); Hydromor Urine NEGATIVE ng/mL (<50); Hydroxyethylflurazepam, Conf NEGATIVE ng/mL (<50); Hydroxymidazolam Ur, GC/MS NEGATIVE ng/mL (<50); Hydroxytriazolam NEGATIVE ng/mL (<50); Lorazepam, Ur GC/MS 760 ng/mL (<50); Marijuana Quant, GCMS Urine >5000 ng/mL (<5); Morphine Urine 1130 ng/mL (<50); Nordiazepam, Confirm NEGATIVE ng/mL (<50); Norhydrocodone Conf Ur NEGATIVE ng/mL (<50); Noroxycodone Urine NEGATIVE ng/mL (<50); Oxazepam Ur, GC/MS NEGATIVE ng/mL (<50); Oxycodone Urine NEGATIVE ng/mL (<50); Oxymorph Urine NEGATIVE ng/mL (<50); Temazepam, Confirm NEGATIVE ng/mL (<50)
== END 2024-07-20 16:34 | disposition home or self-care (01) | DRG 57 ==
LOC: ED 08:55 → 2N 12:25 → SUATTDRO 12:25 → 2N 13:40

== ENCOUNTER 2024-11-04 19:51 | Inpatient (IN) ==
[2024-11-04] MEDS: ACETAMINOPHEN 1,000 MG/100 ML VIAL IV STA (20:15)
[2024-11-04 20:36] LABS: Appearance Urine Clear (Clear); Bacteria Urine Automated None Seen (None Seen); Bilirubin Urine Negative (Negative); Blood Urine Trace (Negative); Cast Urine Automated 0-2 /lpf (0-2); Color Urine Yellow; Epithelial Cell Urine Auto 0-2 /hpf (0-2); Glucose Urine UA 1+ (Negative); Ketones Urine Negative (Negative); Leukocyte Esterase Urine Negative (Negative); Nitrite Urine Negative (Negative); Protein Urine 2+ (Negative); Specific Gravity Urine 1.019 (1.000-1.030); Urobilinogen Urine Negative (Negative); WBC Urine Automated 0-5 /hpf (0-5)
[2024-11-04 20:39] LABS: Albumin Level 5.5 gm/dl (3.4-5.0); Bilirubin,Total 0.5 mg/dl (0.2-1.0); Calcium 10.3 mg/dl (8.6-10.3); Potassium 3.7 mmol/L (3.5-5.1)
[2024-11-04 20:45] LABS: Albumin Globulin Ratio 1.8 (0.9-2); BUN Creatinine Ratio 22.9 (10-20); Globulin 3.1 gm/dl (2.5-4.0); Total Protein 8.6 gm/dl (6.0-8.3)
[2024-11-04 21:00] LABS: Hematocrit (blood only) 45.1 % (37.0-47.0); Hemoglobin 15.6 g/dl (12.0-16.0); Mean Corpuscular Hemoglobin 30.6 pg (25.0-34.0); Mean Corpuscular Hgb Conc 34.6 g/dL (32.0-36.0); Mean Corpuscular Volume 88.4 fL (80.0-100.0); Mean Platelet Volume 12.4 fL (9.4-12.4); Platelet Count 243 K/uL (130-400); RDW Coefficient of Variation 12.1 % (11.5-14.5); RDW Standard Deviation 39.1 fL (36.4-46.3); White Blood Count 12.62 K/ul (4.8-10.8)
[2024-11-04 21:15] LABS: Amphetamines+Metham, Urine Neg (Neg); Barbiturates, Urine Neg (Neg); Benzodiazepine, Urine Neg (Neg); Cocaine, Urine Neg (Neg); Fentanyl, Urine Neg (Neg); MDMA (Ecstacy), Urine Neg (Neg); Marijuana, Urine Pos (Neg); Methadone, Urine Neg (Neg); Opiate, Urine Neg (Neg); Phencyclidine, Urine Neg (Neg)
--- NOTE | 2024-11-04 21:45 | Emergency Department Note ---
Impression & Plan Intractable nausea and vomiting, Left sided abdominal pain ED Provider Note CHIEF COMPLAINT: Nausea HISTORY OF PRESENTING ILLNESS: This 54-year-old female patient presents to the emergency department for evaluation of nausea, dizziness, and left flank pain since last night. She has taken Zofran and Clonazepam at home without improvement. She has not taken any of her other medications today. The patient is prescribed Prevacid, dicyclomine, Reglan, and Miralax. The patient is able to drink liquids and eat some foods, but then also gets a supplemental feeding through her PEG tube once a day. The patient vapes marijuana. The patient has not had a BM in the past 2 days. She has not been taking her Miralax regularly recently. The patient has a history of intractable nausea and vomiting with a history of gastric bypass and PEG tube placement. The patient has had numerous GI evaluations without clear source of her symptoms. GI recommended avoiding opioids which worsen GI motility. The patient also has a history of a CVA 2 years ago with concerns that this may be contributing to her symptoms as well. The patient continues to follow-up with neurology as an outpatient. The patient has required admission previously for her intractable nausea and vomiting. REVIEW OF SYSTEMS: See HPI for pertinent positives and pertinent negatives. ALLERGIES: NKDA MEDICATIONS: See below PAST MEDICAL HISTORY: Denies pertinent past medical or pertinent past surgical history PHYSICAL EXAM: VITALS: Vitals are noted on the nurse's note and reviewed by myself. GENERAL: Non toxic, in no acute distress, non-diaphoretic. SKIN: Capillary refill <2 sec. EYES: PERRLA. EOMI. Conjunctivae without injection, sclerae without icterus. NOSE: Patent without discharge. MOUTH: Mucous membranes moist. Uvula midline. Airway patent. NECK: Supple without nuchal rigidity. HEART: Regular rate and rhythm without murmurs gallops or rubs. LUNGS: Clear to auscultation bilaterally without wheezes, rales or rhonchi. No retractions or accessory muscle use. ABDOMEN: Positive bowel sounds x 4. Normal tympanic percussion. PEG tube in place without evidence for infection. Soft, tender to palpation on the left side of the abdomen diffusely. No masses or hepatosplenomegaly. Murguia sign negative. No CVA tenderness. No guarding, rigidity, or rebound tenderness. No focal RLQ or LLQ tenderness. MUSCULOSKELETAL: No gross musculoskeletal defects. NEURO: Patient was alert and oriented. No focal neurological deficits. DIFFERENTIAL DIAGNOSIS: Differential diagnosis includes hepatitis, pancreatitis, cholecystitis, cholelithiasis, appendicitis, kidney stone, pyelonephritis, UTI, gastritis, gastroenteritis, mesenteric adenitis, obstruction, constipation, hernia, abdominal abscess, perforation, diverticulitis, IBD, ischemic colitis, abdominal aortic aneurysm, , ectopic , ovarian cyst, ovarian torsion, acute salpingitis, or others. ED COURSE AND MEDICAL DECISION MAKING: MEDICATIONS GIVEN: 1 L normal saline solution bolus. Tylenol 1000 mg IV. Reglan 10 mg IV, Zofran 4 mg IV, Toradol 10 mg IV, Pepcid 20 mg IV, and Benadryl 25 mg IV. MONITOR: Continuous registered nurse cardiac: Order was placed for continuous registered nurse cardiac. Patient was placed on the registered nurse cardiac and continuous pulse ox. Patient was noted to be in normal sinus rhythm at an initial rate of 80 bpm per my interpretation. INTERPRETATION OF LABS: I interpreted the labs with full lab results as below in the lab section of this note. Laboratory results pertinent to the emergent complaint are discussed in the MDM section below. The patient was advised to follow up with their PCP and/or specialist(s) for further outpatient monitoring and management of any abnormal results. INTERPRETATION OF IMAGING: Imaging studies were interpreted by myself and read by radiology as per the imaging section of this note. The patient was advised to follow up with their PCP and/or specialist(s) for further outpatient management of any non-emergent abnormal findings. Chest x-ray negative for acute cardiopulmonary etiology. CT scan of the abdomen and pelvis with IV contrast shows the staple line from her previous gastric surgery. There is a percutaneous gastrostomy in the distal stomach. The stomach is nondilated. No evidence of leakage or acute inflammation. Bowel loops are nondilated. There is an anastomotic staple line involving the mid small bowel. There is diverticulosis without diverticulitis. Previous sigmoid colon anastomosis is noted. No acute inflammatory changes involving the bowel. EXTERNAL RECORDS REVIEWED: I reviewed the patient's most recent admission as summarized above. CHRONIC MEDICAL/SOCIAL CONDITIONS AFFECTING CARE: Intermittent episodes of intractable nausea and vomiting. CONSULTATIONS: On-call hospitalist MDM SUMMARY: The patient was seen during a time of extreme volume and extreme acuity. Nursing triage protocols were initiated with IV lock, labs, and/or imaging studies conducted by protocol in the triage area. The patient was examined by myself once they were taken back to an exam room. The patient has a history of intermittent episodes of intractable nausea, vomiting, and abdominal pain. Symptoms started again yesterday. However, she is having worsening left-sided abdominal pain with this episode. She took Zofran and clonazepam at home, but did not take any of her other medications today. She has not been moving her bowels regularly because she has not been as good about taking her MiraLAX. White blood cell elevated at 12.62. Hemoglobin normal at 15.6. Platelet count normal at 243. Glucose 161, but CMP otherwise without acute abnormalities. Lipase normal. Urinalysis with 2+ protein, 1+ glucose, and trace blood, but no evidence for UTI. Urine drug screen positive for marijuana, but otherwise negative. Medical alcohol negative. Chest x-ray negative for acute cardiopulmonary etiology. CT scan of the abdomen and pelvis with IV contrast shows the staple line from her previous gastric surgery. There is a percutaneous gastrostomy in the distal stomach. The stomach is nondilated. No evidence of leakage or acute inflammation. Bowel loops are nondilated. There is an anastomotic staple line involving the mid small bowel. There is diverticulosis without diverticulitis. Previous sigmoid colon anastomosis is noted. No acute inflammatory changes involving the bowel. The patient was treated with IV fluids as well as multiple medications for pain and nausea as above. However, the patient continued to have intractable nausea, vomiting, and abdominal pain. The patient states that her symptoms are similar to when she has needed admission in the past. The patient does not feel that she can be discharged home due to her to her symptoms. I spoke with the on-call hospitalist who agreed to admit the patient for further evaluation and treatment. Please refer to their dictation for further details. The patient's care was transferred in stable condition. DIAGNOSIS: Intractable nausea and vomiting Left-sided abdominal pain Past Med/Surg History Problem List (Updated 11/05/24 @ 03:42 by Aleksandra Marion PA-C) Left sided abdominal pain (Acute) Left lower quadrant abdominal pain (Acute) Taste perversion Gastrostomy present (Acute) Leukocytosis (Acute) Intractable nausea and vomiting (Acute) Unintentional weight loss Moderate protein-calorie malnutrition History of hemorrhagic cerebrovascular accident (CVA) with residual deficit occasional exp aphasia ESTEBAN (obstructive sleep apnea) (Chronic) GERD (gastroesophageal reflux disease) (Chronic) Depression (Chronic) Anxiety Medical History Pulmonary embolism Endometriosis Hemorrhagic stroke Surgical History History of Maryuri-en-Y gastric bypass H/O wisdom tooth extraction History of partial colectomy History of hysterectomy Hx of cholecystectomy History of appendectomy H/O craniotomy Social History Smoking Status: Current every day smoker Tobacco Type: E-cigarettes / Vaping Second Hand Exposure: No; Do You Dip or Chew Tobacco: No; Hx Alcohol Use: No Hx Substance Use: No Preferred Language: Indonesian 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 Ability: Effective 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 Beliefs That Will Affect Care: None Current Living Situation: Spouse Feels Safe at Home: Yes Assistive Devices: None Allergies Allergies Allergy/AdvReac Type Severity Reaction Status Date / Time No Known Allergies Allergy Verified 11/04/24 23:00 Home Meds Home Medications Medication Instructions Recorded Confirmed ondansetron 4 mg disintegrating 4 mg PO Q8H PRN Nausea And Vomiting 04/27/24 11/04/24 tablet sertraline 100 mg tablet 200 mg PO DAILY 05/01/24 11/04/24 clonazepam 1 mg tablet 1 mg PO DAILY 06/27/24 11/04/24 acetaminophen 325 mg tablet 650 mg PO DIRECTED PRN PAIN, 11/04/24 11/04/24 (Tylenol) MILD-MODERATE aripiprazole 2 mg tablet 2 mg PO QAM 11/04/24 11/04/24 cyanocobalamin (vitamin B-12) 1,000 mcg subcut .Q12WKS 11/04/24 11/04/24 1,000 mcg/mL injection solution epinephrine 0.3 mg/0.3 mL 0.3 mg IM DIRECTED PRN Allergic 11/04/24 11/04/24 injection, auto-injector (EpiPen) Reaction lansoprazole 30 mg delayed 30 mg PO QAM 11/04/24 11/04/24 release,disintegrating tablet (Prevacid SoluTab) [id number] carb-vit K 1 tab PO DAILY 11/04/24 11/04/24 18 mg iron-400 mcg-500 mg tablet (Women's One Daily) nutritional supplements 105 ea feeding tube DIRECTED 11/04/24 11/04/24 prochlorperazine 25 mg rectal 25 mg IN Q12H PRN NAUSEA/VOMITING 11/04/24 11/04/24 suppository (Compazine) prochlorperazine maleate 5 mg 5 mg PO Q6H PRN NAUSEA/VOMITING 11/04/24 11/04/24 tablet (Compazine) promethazine 25 mg tablet 25 mg PO Q6H PRN NAUSEA/VOMITING 11/04/24 11/04/24 scopolamine base 1 mg over 3 days 1 mg transdermal .Q72HRS 11/04/24 11/04/24 transdermal patch trazodone 50 mg tablet 50 mg PO HS 11/04/24 11/04/24 Results & Data (ED) Vital Signs Vital Signs - 24 hr 11/04/24 20:02 11/04/24 21:21 11/04/24 21:52 Temperature 37.2 C Temperature Source Temporal Artery Scan Pulse Rate 88 82 Pulse Rate [Right Finger] 73 Pulse Rate from SpO2 Sensor Pulse Rhythm Regular Pulse Rhythm [Right Finger] Pulse Strength [Right Finger] Respiratory Rate 19 20 Respiratory Effort / Characteristics Non-Labored Non-Labored Spontaneous Respiratory Depth Normal Normal Respiratory Pattern Blood Pressure 153/96 H Blood Pressure [Right Arm] 159/95 H Blood Pressure Mean 115 Blood Pressure Mean [Right Arm] 116 Pulse Oximetry 97 98 Oxygen Delivery Method Room Air Room Air Sepsis Recent Fever Within 48 Hours No Sepsis New/Unexplained Change in Mental Status No Sepsis Action Taken by Nursing No Action Required 11/04/24 23:10 11/05/24 00:30 11/05/24 00:42 Temperature Temperature Source Pulse Rate 65 77 Pulse Rate [Right Finger] 85 Pulse Rate from SpO2 Sensor Pulse Rhythm Pulse Rhythm [Right Finger] Regular Pulse Strength [Right Finger] Normal Respiratory Rate 23 20 22 Respiratory Effort / Characteristics Non-Labored Spontaneous Respiratory Depth Normal Respiratory Pattern Regular Blood Pressure 120/83 120/83 Blood Pressure [Right Arm] 103/72 Blood Pressure Mean 95 95 Blood Pressure Mean [Right Arm] 82 Pulse Oximetry 96 96 99 Oxygen Delivery Method Room Air Sepsis Recent Fever Within 48 Hours Sepsis New/Unexplained Change in Mental Status Sepsis Action Taken by Nursing 11/05/24 01:24 11/05/24 01:30 11/05/24 02:18 Temperature Temperature Source Pulse Rate 101 H 90 91 H Pulse Rate [Right Finger] Pulse Rate from SpO2 Sensor Pulse Rhythm Pulse Rhythm [Right Finger] Pulse Strength [Right Finger] Respiratory Rate 22 17 Respiratory Effort / Characteristics Respiratory Depth Respiratory Pattern Blood Pressure 120/88 151/104 H Blood Pressure [Right Arm] Blood Pressure Mean 98 119 Blood Pressure Mean [Right Arm] Pulse Oximetry 97 97 Oxygen Delivery Method Sepsis Recent Fever Within 48 Hours Sepsis New/Unexplained Change in Mental Status Sepsis Action Taken by Nursing 11/05/24 02:42 11/05/24 03:09 Temperature Temperature Source Pulse Rate 102 H Pulse Rate [Right Finger] Pulse Rate from SpO2 Sensor 83 Pulse Rhythm Pulse Rhythm [Right Finger] Pulse Strength [Right Finger] Respiratory Rate 13 21 Respiratory Effort / Characteristics Respiratory Depth Respiratory Pattern Blood Pressure 155/101 H 168/108 H Blood Pressure [Right Arm] Blood Pressure Mean 119 128 Blood Pressure Mean [Right Arm] Pulse Oximetry 97 97 Oxygen Delivery Method Sepsis Recent Fever Within 48 Hours Sepsis New/Unexplained Change in Mental Status Sepsis Action Taken by Nursing Laboratory Data 11/04/24 20:15 11/04/24 20:15 Lab Results 11/04/24 Range/Units 20:15 WBC 12.62 H (4.8-10.8) K/ul RBC 5.10 (4.20-5.40) M/uL Hgb 15.6 (12.0-16.0) g/dl Hct 45.1 (37.0-47.0) % MCV 88.4 (80.0-100.0) fL MCH 30.6 (25.0-34.0) pg MCHC 34.6 (32.0-36.0) g/dL RDW Std Deviation 39.1 (36.4-46.3) fL RDW Coeff of Aysha 12.1 (11.5-14.5) % Plt Count 243 (130-400) K/uL MPV 12.4 (9.4-12.4) fL Immature Gran % (Auto) 0.4 % Neut % (Auto) 93.5 % Lymph % (Auto) 4.2 % [place] % (Auto) 1.7 % Eos % (Auto) 0.0 % Baso % (Auto) 0.2 % Neut # (Auto) 11.81 H (1.40-6.50) K/uL Lymph # (Auto) 0.53 L (1.20-3.40) K/uL [place] # (Auto) 0.21 (0.11-0.59) K/uL Eos # (Auto) 0.00 (0.00-0.50) K/uL Baso # (Auto) 0.02 (0.00-0.20) K/uL Immature Gran # (Auto) 0.05 (0.01-0.20) K/uL Sodium 138 (136-145) mmol/L Potassium 3.7 (3.5-5.1) mmol/L Chloride 100 (98-107) mmol/L Carbon Dioxide 29 (21-32) mmol/L Anion Gap 9 (3-11) BUN 16 (6-23) mg/dl Creatinine 0.70 (0.6-1.2) mg/dl Est Cr Clr Drug Dosing 76.0 ml/min eGFR 102.71 BUN/Creatinine Ratio 22.9 H (10-20) Glucose 161 H (70-99(Fasting)) mg/dl Calcium 10.3 (8.6-10.3) mg/dl Total Bilirubin 0.5 (0.2-1.0) mg/dl AST 21 (13-39) U/L ALT 13 (7-52) U/L Alkaline Phosphatase 76 (34-104) U/L Total Protein 8.6 H (6.0-8.3) gm/dl Albumin 5.5 H (3.4-5.0) gm/dl Globulin 3.1 (2.5-4.0) gm/dl Albumin/Globulin Ratio 1.8 (0.9-2) Lipase 17 (11-82) U/L Urine Color Yellow Urine Appearance Clear (Clear) Urine pH 7.0 (4.5-7.5) Ur Specific [place] 1.019 (1.000-1.030) Urine Protein 2+ H (Negative) Urine Glucose (UA) 1+ H (Negative) Urine Ketones Negative (Negative) Urine Blood Trace H (Negative) Urine Nitrite Negative (Negative) Urine Bilirubin Negative (Negative) Urine Urobilinogen Negative (Negative) Ur Leukocyte Esterase Negative (Negative) Urine WBC (Auto) 0-5 (0-5) /hpf Urine RBC (Auto) 6-10 H (0-2) /hpf U Hyaline Cast (Auto) 0-2 (0-2) /lpf U Epithel Cells (Auto) 0-2 (0-2) /hpf Urine Bacteria (Auto) None Seen (None Seen) Urine Opiates Screen Neg (Neg) Ur Methadone, Qual Neg (Neg) Urine Fentanyl Screen Neg (Neg) Urine Barbiturates Neg (Neg) Ur Phencyclidine (PCP) Neg (Neg) U Amphetamin/Meth Scrn Neg (Neg) MDMA (Ecstasy) Screen Neg (Neg) U Benzodiazepines Scrn Neg (Neg) Ur Cocaine Metabolite Neg (Neg) U Marijuana (THC) Screen Pos H (Neg) Ethyl Alcohol mg/dL < 10.0 (<10.0) mg/dl Administered Medications Discontinued Medications Diphenhydramine HCl (Diphenhydramine 50 Mg/Ml Vial) 25 mg IV NOW STA Stop: 11/05/24 01:23 Last Admin: 11/05/24 01:43 Dose: 25 mg Documented By: TAYLOR Hydromorphone HCl (Hydromorphone Inj 0.5 Mg/0.5 Ml Syr) 0.25 mg IV NOW STA Stop: 11/05/24 03:08 Last Admin: 11/05/24 03:19 Dose: 0.25 mg Documented By: TAYLOR Acetaminophen (Ofirmev) 1,000 mg in 100 mls @ 400 mls/hr IV NOW STA Stop: 11/04/24 20:26 Last Infusion: 11/04/24 20:34 Dose: Infused Documented By: Admin: 11/04/24 20:15 Dose: 400 mls/hr Documented By: EFREN Sodium Chloride (Nss) 1,000 mls @ 999 mls/hr IV .Q1H1M ONE Stop: 11/04/24 22:54 Last Infusion: 11/04/24 23:09 Dose: Infused Documented By: Admin: 11/04/24 22:08 Dose: 999 mls/hr Documented By: CRISTINO Famotidine (Pepcid 20mg Iv Push) 20 mg in 5 mls @ 2.5 mls/min IV NOW STA Stop: 11/04/24 22:32 Last Admin: 11/04/24 22:36 Dose: 2.5 mls/min Documented By: CRISTINO Ioversol (Optiray 320 100ml) 90 ml IV ONCE ONE Stop: 11/04/24 22:02 Last Admin: 11/04/24 22:01 Dose: 90 ml Documented By: MARIAELENA Ketorolac Tromethamine (Ketorolac Tromethamine 15 Mg/Ml Vial) 10 mg IV NOW ONE Stop: 11/04/24 22:32 Last Admin: 11/04/24 22:36 Dose: 10 mg Documented By: MADELINEK Metoclopramide HCl (Metoclopramide Hcl Inj 5 Mg/Ml 2 Ml Vial) 10 mg IV NOW STA Stop: 11/04/24 21:55 Last Admin: 11/04/24 22:08 Dose: 10 mg Documented By: MADELINEK Ondansetron HCl (Ondansetron Inj 2 Mg/Ml 2 Ml Vial) 4 mg IV NOW STA Stop: 11/04/24 21:55 Last Admin: 11/04/24 22:08 Dose: 4 mg Documented By: MADELINEK Imaging Data Radiologist's Impression: Abdomen/Pelvis CT 11/04/24 21:54 Exam(s): CT ABDOMEN + PELVIS With Contrast IV Amt: 90 ml optiay 320 EXAM: CT Abdomen and Pelvis With Intravenous Contrast CLINICAL HISTORY: Reason for exam: Left sided abdominal pain, vomiting, elev WBC. TECHNIQUE: Axial computed tomography images of the abdomen and pelvis with intravenous contrast. CTDI is 10.7 mGy and DLP is 468.51 mGy-cm. Automated exposure control was utilized for the study. A dose lowering technique was utilized adhering to the principles of ALARA. CONTRAST: Patient received 90 ml optiay 320 of IV contrast COMPARISON: July 19 2024 FINDINGS: Lung bases: Unremarkable. No mass. No consolidation. ABDOMEN: Liver: Unremarkable. No mass. Gallbladder and bile ducts: Slight biliary duct prominence postcholecystectomy. No biliary duct dilation or choledocholithiasis is seen. Pancreas: Unremarkable. No mass. No ductal dilation. Spleen: Unremarkable. No splenomegaly. Adrenals: Unremarkable. No mass. Kidneys and ureters: 1 cm simple cyst extending off the posterior right kidney. No follow-up is required. No hydronephrosis. Stomach and bowel: Staple line from previous gastric surgery. There is a percutaneous gastrostomy in the distal stomach and stomach is nondilated. No evidence of leakage or acute inflammation. Bowel loops are nondilated. There is an anastomotic staple line involving the mid small bowel. There is diverticulosis of the colon without evidence of acute diverticulitis. Previous sigmoid colon anastomosis is noted. No acute inflammatory changes are seen involving the bowel. PELVIS: Appendix: No findings to suggest acute appendicitis. Bladder: Unremarkable. No mass. Reproductive: Unremarkable as visualized. ABDOMEN and PELVIS: Intraperitoneal space: The uterus is absent. No free fluid in the pelvis. No free air. Bones/joints: Mild degenerative changes in the spine. No acute fracture or subluxation is seen. Soft tissues: Unremarkable. Vasculature: Unremarkable. No abdominal aortic aneurysm. Lymph nodes: Unremarkable. No enlarged lymph nodes. IMPRESSION: 1. Staple line from previous gastric surgery. There is a percutaneous gastrostomy in the distal stomach. The stomach is nondilated. No evidence of leakage or acute inflammation. 2. Bowel loops are nondilated. There is an anastomotic staple line involving the mid small bowel. There is diverticulosis of the colon without evidence of acute diverticulitis. Previous sigmoid colon anastomosis is noted. No acute inflammatory changes are seen involving the bowel. Electronically signed by: Noah Vera MD 11/05/24 00:08 AM Chest X-Ray 11/04/24 21:54 Exam(s): XR CXR 1 VIEW EXAM: XR Chest, 1 View CLINICAL HISTORY: Reason for exam: abdominal pain, vomiting. TECHNIQUE: Frontal view of the chest. COMPARISON: June 27, 2024 FINDINGS: Lungs: Unremarkable. No consolidation. Pleural space: Unremarkable. No pneumothorax. Heart: Unremarkable. No cardiomegaly. Mediastinum: Unremarkable. Normal mediastinal contour. Bones/joints: Unremarkable. No acute fracture. IMPRESSION: Normal chest x-ray. Electronically signed by: Noah Vera MD 11/05/24 00:13 AM Discharge Plan Visit Data Chief Complaint: Nausea Stated Complaint: NAUSEA CHRONIC FROM STROKE ED Provider: Priyanka Lindquist ED Midlevel Provider: Aleksandra Marion Discharge Problem: Intractable nausea and vomiting, Left sided abdominal pain Patient Disposition: Admitted As Inpatient Condition: Good Discharge Instructions Interventions: ED Discharge Assessment Last Done: 11/05/24 03:25 Prescriptions Prescriptions: No Action ondansetron 4 mg tablet,disintegrating 4 mg PO Q8H PRN (Reason: Nausea And Vomiting) sertraline 100 mg tablet 200 mg PO DAILY clonazepam 1 mg tablet 1 mg PO DAILY acetaminophen [Tylenol] 325 mg Tablet 650 mg PO DIRECTED PRN (Reason: PAIN, MILD-MODERATE) trazodone 50 mg tablet 50 mg PO HS Nutren 2.0 Liquid 105 ea feeding tube DIRECTED Rx Instructions: ADMINISTER 4 CONTAINERS AT 105 ML/HOUR DAILY AT TOLERATED. prochlorperazine maleate [Compazine] 5 mg Tablet 5 mg PO Q6H PRN (Reason: NAUSEA/VOMITING) prochlorperazine [Compazine] 25 mg Suppository 25 mg IN Q12H PRN (Reason: NAUSEA/VOMITING) cyanocobalamin (vitamin B-12) [Vitamin B-12] 1,000 mcg/mL Solution 1,000 mcg SUBCUT .Q12WKS promethazine 25 mg Tablet 25 mg PO Q6H PRN (Reason: NAUSEA/VOMITING) epinephrine [EpiPen] 0.3 mg/0.3 mL Auto-Injector 0.3 mg IM DIRECTED PRN (Reason: Allergic Reaction) scopolamine base 1 mg over 3 days patch 3 day 1 mg transdermal .Q72HRS aripiprazole 2 mg tablet 2 mg PO QAM Women's One Daily 18 mg iron-400 mcg-500 mg Tablet 1 tab PO DAILY lansoprazole [Prevacid SoluTab] 30 mg tablet,disintegrat, delay rel 30 mg PO QAM
[2024-11-04] MEDS: OPTIRAY 320 100ml IV ONE (22:01)
[2024-11-04] MEDS: ONDANSETRON INJ 2 MG/ML 2 ML VIAL IV STA (22:08)
[2024-11-04] MEDS: METOCLOPRAMIDE HCL INJ 5 MG/ML 2 ML VIAL IV STA (22:08)
[2024-11-04] MEDS: SODIUM CHLORIDE 0.9% 1,000 ML IV ONE (22:08)
[2024-11-04 22:22] LABS: Basophils # (auto) 0.02 K/uL (0.00-0.20); Basophils % (auto) 0.2 %; Immature Granulocytes # (auto) 0.05 K/uL (0.01-0.20); Immature Granulocytes % (auto) 0.4 %; Lymphocytes # (auto) 0.53 K/uL (1.20-3.40); Lymphocytes % (auto) 4.2 %; Monocytes # (auto) 0.21 K/uL (0.11-0.59); Monocytes % (auto) 1.7 %; Neutrophils # (auto) 11.81 K/uL (1.40-6.50); Neutrophils % (auto) 93.5 %
[2024-11-04] MEDS: KETOROLAC TROMETHAMINE 15 MG/ML VIAL IV ONE (22:36)
[2024-11-04] MEDS: FAMOTIDINE 20MG IV PUSH 20 MG/5 ML SYR IV STA (22:36)
--- NOTE | 2024-11-05 00:09 | CT Scan Report ---
Exam(s): CT ABDOMEN + PELVIS With Contrast IV Amt: 90 ml optiay 320 EXAM: CT Abdomen and Pelvis With Intravenous Contrast CLINICAL HISTORY: Reason for exam: Left sided abdominal pain, vomiting, elev WBC. TECHNIQUE: Axial computed tomography images of the abdomen and pelvis with intravenous contrast. CTDI is 10.7 mGy and DLP is 468.51 mGy-cm. Automated exposure control was utilized for the study. A dose lowering technique was utilized adhering to the principles of ALARA. CONTRAST: Patient received 90 ml optiay 320 of IV contrast COMPARISON: July 19 2024 FINDINGS: Lung bases: Unremarkable. No mass. No consolidation. ABDOMEN: Liver: Unremarkable. No mass. Gallbladder and bile ducts: Slight biliary duct prominence postcholecystectomy. No biliary duct dilation or choledocholithiasis is seen. Pancreas: Unremarkable. No mass. No ductal dilation. Spleen: Unremarkable. No splenomegaly. Adrenals: Unremarkable. No mass. Kidneys and ureters: 1 cm simple cyst extending off the posterior right kidney. No follow-up is required. No hydronephrosis. Stomach and bowel: Staple line from previous gastric surgery. There is a percutaneous gastrostomy in the distal stomach and stomach is nondilated. No evidence of leakage or acute inflammation. Bowel loops are nondilated. There is an anastomotic staple line involving the mid small bowel. There is diverticulosis of the colon without evidence of acute diverticulitis. Previous sigmoid colon anastomosis is noted. No acute inflammatory changes are seen involving the bowel. PELVIS: Appendix: No findings to suggest acute appendicitis. Bladder: Unremarkable. No mass. Reproductive: Unremarkable as visualized. ABDOMEN and PELVIS: Intraperitoneal space: The uterus is absent. No free fluid in the pelvis. No free air. Bones/joints: Mild degenerative changes in the spine. No acute fracture or subluxation is seen. Soft tissues: Unremarkable. Vasculature: Unremarkable. No abdominal aortic aneurysm. Lymph nodes: Unremarkable. No enlarged lymph nodes. IMPRESSION: 1. Staple line from previous gastric surgery. There is a percutaneous gastrostomy in the distal stomach. The stomach is nondilated. No evidence of leakage or acute inflammation. 2. Bowel loops are nondilated. There is an anastomotic staple line involving the mid small bowel. There is diverticulosis of the colon without evidence of acute diverticulitis. Previous sigmoid colon anastomosis is noted. No acute inflammatory changes are seen involving the bowel. Electronically signed by: Noah Vera MD 11/05/24 00:08 AM
--- NOTE | 2024-11-05 00:14 | XRay Report ---
Exam(s): XR CXR 1 VIEW EXAM: XR Chest, 1 View CLINICAL HISTORY: Reason for exam: abdominal pain, vomiting. TECHNIQUE: Frontal view of the chest. COMPARISON: June 27, 2024 FINDINGS: Lungs: Unremarkable. No consolidation. Pleural space: Unremarkable. No pneumothorax. Heart: Unremarkable. No cardiomegaly. Mediastinum: Unremarkable. Normal mediastinal contour. Bones/joints: Unremarkable. No acute fracture. IMPRESSION: Normal chest x-ray. Electronically signed by: Noah Vera MD 11/05/24 00:13 AM
[2024-11-05] MEDS: diphenhydrAMINE 50 MG/ML VIAL IV STA (01:43)
--- NOTE | 2024-11-05 02:27 | History & Physical Report ---
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 Patient after gastric bypass in the recovery phase had significant food aversion as well as nausea and is status post PEG tube placement in the remnant stomach. Patient currently mostly tube feed dependent. Says can eat few bites of soft food. But since last 1 day she is having significant nausea and vomiting and abdominal pain. Abdominal pain is mostly in the left side abdomen. She also having headaches. She has history of headaches as per patient. She has a cough with whitish phlegm. Denies any fevers. No runny nose or sore throat. Denies chest pain or shortness of breath. Normal bowel and bladder movements. Currently hemodynamics are okay. Intractable nausea and vomiting Abdominal pain History of nausea and vomiting in the past CT abdomen pelvis no acute findings Mild leukocytosis UA is unremarkable Drug screen positive for marijuana Will keep her n.p.o., IV fluids, IV antiemetics as needed, pain control If not improving will consult GI Cough Chest x-ray okay Monitor History of depression and anxiety Continue home medications GERD IV Pepcid for now Nutrition Mostly tube feed dependent Will keep n.p.o. for now History of hemorrhagic CVA History of prediabetes We will follow HbA1c levels Will follow blood sugars DVT prophylaxis Heparin subcu Disposition Observation medical floor History of Present Illness Chief Complaint: Nausea vomiting and abdominal pain Primary Care Provider: Joey Crockett MD 54-year-old female with past medical history significant for prediabetes, history of hyperkalemia, history of sleep apnea, history of severe protein energy malnutrition, history of nausea vomiting, history of post gastric surgery syndrome, GERD, depression, history of PE in 2018 currently not on anticoagulation, history of Maryuri-en-Y gastric bypass in 2020, history of left basal ganglia hemorrhagic CVA requiring craniectomy in October 2022 with eventual cranioplasty in March 2023 comes because of persistent nausea and vomiting and abdominal pain. Patient after gastric bypass in the recovery phase had si gnificant food aversion as well as nausea and is status post PEG tube placement in the remnant stomach. Patient currently mostly tube feed dependent. Says can eat few bites of soft food. But since last 1 day she is having significant nausea and vomiting and abdominal pain. Abdominal pain is mostly in the left side abdomen. She also having headaches. She has history of headaches as per patient. She has a cough with whitish phlegm. Denies any fevers. No runny nose or sore throat. Denies chest pain or shortness of breath. Normal bowel and bladder movements. Currently hemodynamics are okay. Past medical history. As mentioned above Past surgical history. Bilateral breast enhancement. Colonoscopy. cystoscopy with stent placement. Dental surgery. EGD. Laparoscopic gastrostomy without reconstruction gastric tube. Laparoscopic gastric bypass Maryuri-en-Y. Laparoscopic appendectomy. Injection of lumbosacral spine. Partial removal of colon for diverticulitis. Laparoscopic cholecystectomy. Small bowel endoscopy with biopsy. Social history. . Quit smoking 2023. Smoked 0.3 pack a day for 16 years. No alcohol use currently. Smokes marijuana once or twice a week. Family history. Paternal grandfather had prostate cancer. Maternal grandfather had [place]. Maternal grandmother had stroke. Father had CAD. Mother had high cholesterol. Allergies Allergy/AdvReac Type Severity Reaction Status Date / Time No Known Allergies Allergy Verified 11/04/24 23:00 Home Medications Medication Instructions Recorded Confirmed Type ondansetron 4 mg disintegrating 4 mg PO Q8H PRN Nausea And Vomiting 04/27/24 11/04/24 History tablet sertraline 100 mg tablet 200 mg PO DAILY 05/01/24 11/04/24 History clonazepam 1 mg tablet 1 mg PO DAILY 06/27/24 11/04/24 History acetaminophen 325 mg tablet 650 mg PO DIRECTED PRN PAIN, 11/04/24 11/04/24 History (Tylenol) MILD-MODERATE aripiprazole 2 mg tablet 2 mg PO QAM 11/04/24 11/04/24 History cyanocobalamin (vitamin B-12) 1,000 mcg subcut .Q12WKS 11/04/24 11/04/24 History 1,000 mcg/mL injection solution epinephrine 0.3 mg/0.3 mL 0.3 mg IM DIRECTED PRN Allergic 11/04/24 11/04/24 History injection, auto-injector (EpiPen) Reaction lansoprazole 30 mg delayed 30 mg PO QAM 11/04/24 11/04/24 History release,disintegrating tablet (Prevacid SoluTab) [id number] carb-vit K 1 tab PO DAILY 11/04/24 11/04/24 History 18 mg iron-400 mcg-500 mg tablet (Women's One Daily) nutritional supplements 105 ea feeding tube DIRECTED 11/04/24 11/04/24 History prochlorperazine 25 mg rectal 25 mg IN Q12H PRN NAUSEA/VOMITING 11/04/24 11/04/24 History suppository (Compazine) prochlorperazine maleate 5 mg 5 mg PO Q6H PRN NAUSEA/VOMITING 11/04/24 11/04/24 History tablet (Compazine) promethazine 25 mg tablet 25 mg PO Q6H PRN NAUSEA/VOMITING 11/04/24 11/04/24 History scopolamine base 1 mg over 3 days 1 mg transdermal .Q72HRS 11/04/24 11/04/24 History transdermal patch trazodone 50 mg tablet 50 mg PO HS 11/04/24 11/04/24 History Past Med/Surg History Problem List (Updated 11/05/24 @ 03:42 by Aleksandra Marion PA-C) Left sided abdominal pain (Acute) Left lower quadrant abdominal pain (Acute) Taste perversion Gastrostomy present (Acute) Leukocytosis (Acute) Intractable nausea and vomiting (Acute) Unintentional weight loss Moderate protein-calorie malnutrition History of hemorrhagic cerebrovascular accident (CVA) with residual deficit occasional exp aphasia ESTEBAN (obstructive sleep apnea) (Chronic) GERD (gastroesophageal reflux disease) (Chronic) Depression (Chronic) Anxiety Medical History Pulmonary embolism Endometriosis Hemorrhagic stroke Surgical History History of Maryuri-en-Y gastric bypass H/O wisdom tooth extraction History of partial colectomy History of hysterectomy Hx of cholecystectomy History of appendectomy H/O craniotomy Social History Smoking Status: Never smoker Tobacco Type: E-cigarettes / Vaping Second Hand Exposure: No; Do You Dip or Chew Tobacco: No; Tobacco Cessation Education Requested by Patient: No Hx Alcohol Use: No Hx Substance Use: Yes Last Used Substance: Days (ago) Last Used Substance Other:: 2 months ago Substance Use Type Other:: medical marijuana Preferred Language: Arabic 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 Ability: Effective Technical Publications Manager Required: No Beliefs That Will Affect Care: None Current Living Situation: Spouse Other Information That Helps Us Care for You: No Feels Safe at Home: Yes Safety Concerns: Feels Safe At This Time Assistive Devices: Walker Assistive Devices Comment: Patient states she uses a walker at home at times. Review of Systems Review of Systems: All systems reviewed & are unremarkable except as noted in HPI & below Physical Exam Physical Exam: General- Not in distress. Head- atraumatic Eyes- PERRL. ENT- oropharynx clear Neck- supple, no JVD. Lungs- clear to auscultation no wheezing or crackles Heart- regular rhythm; no murmur, no gallop. Abdomen- normal bowel sounds, soft, nontender, no distension. Peg tube seen Extremities- no pretibial edema, no erythema seen Neuro- alert, oriented PERRL, no facial palsy; no dysarthria; moves extremities Results & Data Results & Data Vital Signs (Past 12 Hours) Vital Signs Temp Pulse Pulse Resp BP BP Pulse Ox 11/05/24 01:30 90 22 120/88 97 11/05/24 01:24 101 H 11/05/24 00:42 77 22 120/83 99 11/05/24 00:30 65 20 120/83 96 11/04/24 23:10 85 23 103/72 96 11/04/24 21:52 73 20 159/95 H 98 11/04/24 21:21 82 11/04/24 20:02 37.2 C 88 19 153/96 H 97 O2 Del Method 11/05/24 01:30 11/05/24 01:24 11/05/24 00:42 11/05/24 00:30 11/04/24 23:10 Room Air 11/04/24 21:52 Room Air 11/04/24 21:21 11/04/24 20:02 Room Air Diagnostic Findings Laboratory Results WBC 12.62 K/ul (4.8-10.8) H 11/04/24 20:15 RBC 5.10 M/uL (4.20-5.40) 11/04/24 20:15 Hgb 15.6 g/dl (12.0-16.0) 11/04/24 20:15 Hct 45.1 % (37.0-47.0) 11/04/24 20:15 MCV 88.4 fL (80.0-100.0) 11/04/24 20:15 MCH 30.6 pg (25.0-34.0) 11/04/24 20:15 MCHC 34.6 g/dL (32.0-36.0) 11/04/24 20:15 RDW Std Deviation 39.1 fL (36.4-46.3) 11/04/24 20:15 RDW Coeff of Aysha 12.1 % (11.5-14.5) 11/04/24 20:15 Plt Count 243 K/uL (130-400) 11/04/24 20:15 MPV 12.4 fL (9.4-12.4) 11/04/24 20:15 Immature Gran % (Auto) 0.4 % 11/04/24 20:15 Neut % (Auto) 93.5 % 11/04/24 20:15 Lymph % (Auto) 4.2 % 11/04/24 20:15 Merrick % (Auto) 1.7 % 11/04/24 20:15 Eos % (Auto) 0.0 % 11/04/24 20:15 Baso % (Auto) 0.2 % 11/04/24 20:15 Neut # (Auto) 11.81 K/uL (1.40-6.50) H 11/04/24 20:15 Lymph # (Auto) 0.53 K/uL (1.20-3.40) L 11/04/24 20:15 Merrick # (Auto) 0.21 K/uL (0.11-0.59) 11/04/24 20:15 Eos # (Auto) 0.00 K/uL (0.00-0.50) 11/04/24 20:15 Baso # (Auto) 0.02 K/uL (0.00-0.20) 11/04/24 20:15 Immature Gran # (Auto) 0.05 K/uL (0.01-0.20) 11/04/24 20:15 Sodium 138 mmol/L (136-145) 11/04/24 20:15 Potassium 3.7 mmol/L (3.5-5.1) 11/04/24 20:15 Chloride 100 mmol/L (98-107) 11/04/24 20:15 Carbon Dioxide 29 mmol/L (21-32) 11/04/24 20:15 Anion Gap 9 (3-11) 11/04/24 20:15 BUN 16 mg/dl (6-23) 11/04/24 20:15 Creatinine 0.70 mg/dl (0.6-1.2) 11/04/24 20:15 Est Cr Clr Drug Dosing 76.0 ml/min 11/04/24 20:15 eGFR 102.71 11/04/24 20:15 BUN/Creatinine Ratio 22.9 (10-20) H 11/04/24 20:15 Glucose 161 mg/dl (70-99(Fasting)) H 11/04/24 20:15 Calcium 10.3 mg/dl (8.6-10.3) 11/04/24 20:15 Total Bilirubin 0.5 mg/dl (0.2-1.0) 11/04/24 20:15 AST 21 U/L (13-39) 11/04/24 20:15 ALT 13 U/L (7-52) 11/04/24 20:15 Alkaline Phosphatase 76 U/L (34-104) 11/04/24 20:15 Total Protein 8.6 gm/dl (6.0-8.3) H 11/04/24 20:15 Albumin 5.5 gm/dl (3.4-5.0) H 11/04/24 20:15 Globulin 3.1 gm/dl (2.5-4.0) 11/04/24 20:15 Albumin/Globulin Ratio 1.8 (0.9-2) 11/04/24 20:15 Lipase 17 U/L (11-82) 11/04/24 20:15 Urine Color Yellow 11/04/24 20:15 Urine Appearance Clear (Clear) 11/04/24 20:15 Urine pH 7.0 (4.5-7.5) 11/04/24 20:15 Ur Specific [place] 1.019 (1.000-1.030) 11/04/24 20:15 Urine Protein 2+ (Negative) H 11/04/24 20:15 Urine Glucose (UA) 1+ (Negative) H 11/04/24 20:15 Urine Ketones Negative (Negative) 11/04/24 20:15 Urine Blood Trace (Negative) H 11/04/24 20:15 Urine Nitrite Negative (Negative) 11/04/24 20:15 Urine Bilirubin Negative (Negative) 11/04/24 20:15 Urine Urobilinogen Negative (Negative) 11/04/24 20:15 Ur Leukocyte Esterase Negative (Negative) 11/04/24 20:15 Urine WBC (Auto) 0-5 /hpf (0-5) 11/04/24 20:15 Urine RBC (Auto) 6-10 /hpf (0-2) H 11/04/24 20:15 U Hyaline Cast (Auto) 0-2 /lpf (0-2) 11/04/24 20:15 U Epithel Cells (Auto) 0-2 /hpf (0-2) 11/04/24 20:15 Urine Bacteria (Auto) None Seen (None Seen) 11/04/24 20:15 Urine Opiates Screen Neg (Neg) 11/04/24 20:15 Ur Methadone, Qual Neg (Neg) 11/04/24 20:15 Urine Fentanyl Screen Neg (Neg) 11/04/24 20:15 Urine Barbiturates Neg (Neg) 11/04/24 20:15 Ur Phencyclidine (PCP) Neg (Neg) 11/04/24 20:15 U Amphetamin/Meth Scrn Neg (Neg) 11/04/24 20:15 MDMA (Ecstasy) Screen Neg (Neg) 11/04/24 20:15 U Benzodiazepines Scrn Neg (Neg) 11/04/24 20:15 Ur Cocaine Metabolite Neg (Neg) 11/04/24 20:15 U Marijuana (THC) Screen Pos (Neg) H 11/04/24 20:15 Ethyl Alcohol mg/dL < 10.0 mg/dl (<10.0) 11/04/24 20:15 Impressions Abdomen/Pelvis CT 11/04/24 21:54 Exam(s): CT ABDOMEN + PELVIS With Contrast IV Amt: 90 ml optiay 320 EXAM: CT Abdomen and Pelvis With Intravenous Contrast CLINICAL HISTORY: Reason for exam: Left sided abdominal pain, vomiting, elev WBC. TECHNIQUE: Axial computed tomography images of the abdomen and pelvis with intravenous contrast. CTDI is 10.7 mGy and DLP is 468.51 mGy-cm. Automated exposure control was utilized for the study. A dose lowering technique was utilized adhering to the principles of ALARA. CONTRAST: Patient received 90 ml optiay 320 of IV contrast COMPARISON: July 19 2024 FINDINGS: Lung bases: Unremarkable. No mass. No consolidation. ABDOMEN: Liver: Unremarkable. No mass. Gallbladder and bile ducts: Slight biliary duct prominence postcholecystectomy. No biliary duct dilation or choledocholithiasis is seen. Pancreas: Unremarkable. No mass. No ductal dilation. Spleen: Unremarkable. No splenomegaly. Adrenals: Unremarkable. No mass. Kidneys and ureters: 1 cm simple cyst extending off the posterior right kidney. No follow-up is required. No hydronephrosis. Stomach and bowel: Staple line from previous gastric surgery. There is a percutaneous gastrostomy in the distal stomach and stomach is nondilated. No evidence of leakage or acute inflammation. Bowel loops are nondilated. There is an anastomotic staple line involving the mid small bowel. There is diverticulosis of the colon without evidence of acute diverticulitis. Previous sigmoid colon anastomosis is noted. No acute inflammatory changes are seen involving the bowel. PELVIS: Appendix: No findings to suggest acute appendicitis. Bladder: Unremarkable. No mass. Reproductive: Unremarkable as visualized. ABDOMEN and PELVIS: Intraperitoneal space: The uterus is absent. No free fluid in the pelvis. No free air. Bones/joints: Mild degenerative changes in the spine. No acute fracture or subluxation is seen. Soft tissues: Unremarkable. Vasculature: Unremarkable. No abdominal aortic aneurysm. Lymph nodes: Unremarkable. No enlarged lymph nodes. IMPRESSION: 1. Staple line from previous gastric surgery. There is a percutaneous gastrostomy in the distal stomach. The stomach is nondilated. No evidence of leakage or acute inflammation. 2. Bowel loops are nondilated. There is an anastomotic staple line involving the mid small bowel. There is diverticulosis of the colon without evidence of acute diverticulitis. Previous sigmoid colon anastomosis is noted. No acute inflammatory changes are seen involving the bowel. Electronically signed by: Noah Vera MD 11/05/24 00:08 AM Chest X-Ray 11/04/24 21:54 Exam(s): XR CXR 1 VIEW EXAM: XR Chest, 1 View CLINICAL HISTORY: Reason for exam: abdominal pain, vomiting. TECHNIQUE: Frontal view of the chest. COMPARISON: June 27, 2024 FINDINGS: Lungs: Unremarkable. No consolidation. Pleural space: Unremarkable. No pneumothorax. Heart: Unremarkable. No cardiomegaly. Mediastinum: Unremarkable. Normal mediastinal contour. Bones/joints: Unremarkable. No acute fracture. IMPRESSION: Normal chest x-ray. Electronically signed by: Noah Vera MD 11/05/24 00:13 AM Code Status & VTE Plan VTE Prophylaxis Plan VTE Prophylaxis will be ordered: Yes
[2024-11-05] MEDS: HYDROmorphone INJ 0.5 MG/0.5 ML SYR IV STA (03:19)
[2024-11-05] MEDS ORDERED: HYDROmorphone INJ 0.5 MG/0.5 ML SYR IV PRN (03:42)
--- OUTSIDE RECORDS SUMMARY | 2024-11-05 04:01 | External Medical Summary | Summary of Care ---
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 [address] Terri Brunner PA-C [address] [place] [address] Scheduled Procedures Name Priority Associated Diagnoses Date/Ti me ESOPHAGOGASTRODUODENOSCOPY ( EGD), FLEXIBLE, TRANSORAL, DIAGNOSTIC Recall Intestinal metaplasia of stomach COLONOSCOPY FLEXIBLE PROXIMAL DIAGNOSTIC Recall Screen for colon cancer Health Maintenance Due Date Last Done Comments Depression Monitoring 1982 HIV Screening 1985 Hepatitis C Screening 1988 Hepatitis B Vaccine (1 of 3 - 19+ 3-dose series) 1989 HPV/Co-Test 2000 Cologuard 2015 Fecal Occult Blood Test 2015 Sigmoidoscopy 2015 Cervical Cancer Screening 12/26/2019 Pap Smear 12/26/2019 12/25/2016, 08/30, 05/20/2012 (Done elsewhere), Additional history exists Pneumococcal Vaccine: 50+ Years (1 of 1 - PCV) 2020 Zoster Vaccines (1 of 2) 2020 COVID-19 Vaccine (4 - season) 2024 07/25/2021, 11/24/2020, 11/03/2020 HbA1c 10/21/2024 10/22/2023, 08/2020, 06/30/2013 Influenza Vaccine (FLU shot) (Season Ended) 2025 06/17/2023, 04/24/2022, 04/20/2020, Additional history exists Mammogram 08/12/2025 08/12/2024, 0 08/2022, 08/14/2018, Additional history exists Lipid Panel 10/21/2028 10/22/2023, 110 08/2020, 03/22/2016, Additional history exists DTap/Tdap Vaccines (3 - Td or Tdap) 07/27/2030 07/27/2020, 05/14/2007 Colonoscopy 08/31/2030 08/31/2020, 0 08/2020, 06/30/2014, Additional history exists Colorectal Cancer Screening 08/31/2030 HPV (Gardasil) Vaccine Aged Out No lo nger eligible based on patient's age to complete this topic MENINGOCOCCAL (MENACTRA/MENVEO) Aged Out No longer eligible based on patient's age to complete this topic Meningitis B Vaccine (Bexsero/Trumemba) Aged Out No longer eligible based on patient's age to complete this topic documented as of this encounter Medical Devices Not on filedocumented as of this encounter Visit Diagnoses Diagnosis Severe protein-energy malnutrition (HCC)- Primary Other severe protein-calorie malnutrition Nausea and vomiting, unspecified vomiting type Attention to G-tube (HCC) Attention to gastrostomy documented in this encounter Advance Directives * [...] the patient have Health Care Power of Gyroscope Technician? Yes, not currently available * Full Code [...] Power of Attor carlos? No Care Teams Grease Maker Head Relationship Specialty Start Date End Date GracielaSeptember ANDREA [place] [address] [place] [address] PCP - General Physician Machine Sweeper Brush Maker 01/11/24 documented as of this encounter"
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
--- OUTSIDE RECORDS SUMMARY | 2024-11-05 04:01 | External Medical Summary | Summary of Care ---
Author Name Unknown Organization [facility] Address [address] [place] [address] Phone [phone] Care Team Providers Care Numerical Control Machine Tool Operator Name Role Phone Graciela Terri Lorenzo MENDEZ Primary Care Provider [phone] Reason for Visit * Reason Onset Date Comments Advice 10/25/2024 Encounter Details Date Type Department Care Team (Late st Contact Info) Description 10/25/2024 Telephone Access Center, [place] [address] [facility] *DO NOT REMOVE THIS DEPARTMENT* [place] [address] Services, Scheduling [address] [place] [address] Advice Allergies No known active allergiesdocumented as of this encounter (statuses as of 10/28/2024) Medications Triamcinolone Acetonide 0.1 % External Ointment [...] MG Oral Tablet 2 tabs daily 05/14/20 23 Active Zinc 50 MG Oral Tablet Take 1 Tablet by mouth in the morning. 05/14/20 23 Active Promethazine HCl 25 MG Oral Tablet [...] deficiency anemia,Intestinal postoperative nonabsorption,S/P gastric bypass Per [facility] IV iron anaphylaxis protocol. TO BE ADMINISTERED IN THE EVENT OF ANAPHYLACTIC REACTION 1000 mL 10/25/19 Active dexAMETHasone Sodium Phosphate 4 MG/ML Injection Solution (Decadron)Indicat ions:Other iron deficiency anemia,Intestinal postoperative nonabsorption,S/P gastric bypass Inject 8 mg intravenously as needed for Anaphylaxis (severe allergic reaction). Per [facility] IV iron anaphylaxis protocol 2 mL 10/25/19 Active EPINEPHrine (Anaphylaxis) 1 MG/ML Injection SolutionIndicatio ns:Other iron deficiency anemia,Intestinal postoperative nonabsorption,S/P gastric bypass Inject 0.3 mL into a large muscle as needed for Anaphylaxis (severe allergic reaction). Per [facility] IV iron anaphylaxis protocol. May repeat every [...] GI nutrition for further management.. 120 Tablet 11/11/19 Active Additional Information Patient not taking.Reported on 10/27/2024 B-Complex/Vitamin C Oral Tablet (Therapeutic B Complex W/C) Take 1 Tablet by mouth in the morning. Follow up with GI nutrition for further management.. 30 Tablet 11/12/19 Active Additional Information Patient not taking.Reported [...] directed through feeding tube via feeding pump. [id number] mL 5 11:59 PM EDT 04/15/20 24 [...] 1,000 mcgIndications:Postgastric surgery syndrome 1000 mcg IM [id number] 10/16/2022 07/20/2025 Active documented as of this encounter (statuses as of 10/28/2024) Active Problems Problem Noted Date Diagnosed Date [...] as of this encounter (statuses as of 10/28/2024) Resolved Problems Problem Noted Date Diagnosed Date Resolved Date Intracranial hemorrhage 11/19/202307/02 Chronic obstructive pulmonary disease 11/15/2021 11/15/2021 Pre-operative examination 11/16/2020 Morbid obesity due to excess calories 10/27/2020 12/18/2021 MEDICATION USE AGREEMENT 05/14/2012 Overview (03/04/2015): Updated 03/04/2015 MD Neli Briceño III's [place] Calculus of gallbladder with out mention of cholecystitis or obstruction 11/16/2020 Overview (09/30/2024): ICD-10 Update of Inactive Term documented as of this encounter (statuses as of 10/28/2024) Immunizations Name Administration Dates Next Due COVID-19 mRNA, LNP-s, No Pre serve, 2-Dose Series (Pfizer) 07/25/2021,11/24/2020,11/03/2020 Seasonal Influenza Vac., MDV , IM, [...] 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 (5 years old or older) Answer Entry Date Author No 11/06/2023 5:53 PM Giancarlo Rubio RN documented in this encounter Miscellaneous Notes * Telephone Encounter - Camila Back LPN - 10/28/2024 11:19 AM EDT Late entry- Aleah phoned in on 10/27/24 stating that her tube was cracking and wanted to inquire if Lorella could change it at her appt. Explained that Lorella cannot change PEG Tubes. Appt made with Dr. Novoa for 1:40pm on 10/27/24. Pt advised to keep f/u appt with Lorella in 10/28/24 * Telephone Encounter - Lori Domínguez OSA - 10/26/2024 9:50 AM EDT Reason for patient's call: Patient returning call. Please call back. Caller was transferred to n/a at the clinic. * Telephone Encounter - Prerna Cardoza CMA - 10/26/2024 9:43 AM EDT LM for pt to return call to clinic. [facility] 08/2024. GI Nutrition ref was placed for PEG changes at this visit. Pt has no showed for last 3 GI Nutrition appts. * Telephone Encounter - Belinda Palomino OSA - 10/25/2024 8:37 AM EDT Patient calling has some questions about her tube before her appt on Saturday.Patient can be reached at [phone] documented in this encounter Plan of Treatment Upcoming Encounters Date Type Department Care Team (Late st Contact Info) Description 10/29/2024 10:00 AM EDT Telemedicine Psychiatry, [facility] [address] [place] [address] Kathia Martinez MD [address] [place] [address] 01/06/2025 11:30 AM EDT Office Visit Gastroenterology, [facility] [address] [place] [phone] Shashank Wells CRNP [address] [place] [address] 01/26/2025 2:00 PM EDT Office Visit Family Practice [facility] [address] [facility] [place] [address] Terri Owens PA-C [address] [facility] [place] [address] Scheduled Procedures Name Priority Associated Diagnoses Date/Ti [...] Cancer Screening 12/26/2019 Pap Smear 12/26/2019 12/25/2016, /08/2015, 05/20/2012 (Done elsewhere), Additional history exists Pneumococcal Vaccine: 50+ Years (1 of 1 - PCV) 2020 Zoster Vaccines (1 of 2) 2020 COVID-19 Vaccine ( - season) 2024 07/25/2021, 11/24/2020, 11/03/2020 HbA1c 10/21/2024 10/22/2023, 11/0 08/2020, 06/30/2013 Influenza Vaccine (FLU shot) (Season Ended) 2025 06/17/2023, 04/24/2022, 04/20/2020, Additional history exists Mammogram 08/12/2025 08/12/2024, 0 08/2022, 08/14/2018, Additional history exists Lipid Panel 10/21/2028 10/22/2023, 08/2020, 03/22/2016, Additional [...] the patient have Health Care Power of Zinc Plate Grainer? Yes, not currently available * Full Code [...] Power of Attor carlos? No Care Teams Numerical Control Machine Tool Operator Relationship Specialty Start Date End Date GracielaSeptember ANDREA Vent[place] [address] [place] [address] PCP - General Physician Hop Picker 01/11/24 documented as of this encounter
--- OUTSIDE RECORDS SUMMARY | 2024-11-05 04:02 | External Medical Summary | Summary of Care ---
Author Name Unknown Organization [facility] Address [address] [place] [address] Phone [phone] Care Team Providers Care Counter Supply Worker Name Role Phone Terri Owens PA-C Primary Care Provider [phone] Reason for Visit * Reason Onset Date Comments Medication Refill 09/22/2024 Encounter Details Date Type Department Care Team (Late st Contact Info) Description 09/22/2024 Refill Family Practice [facility] [address] [facility] [place] [address] Terri Owens PA-C [address] [place] [address] PTSD (post-traumatic stress disorder); Major depressive disorder, remission status unspecified, unspecified whether recurrent; Anxiety Allergies No known active allergiesdocumented as of this encounter (statuses as of 09/23/2024) Medications Triamcinolone Acetonide 0.1 % External Ointment (Aristocort)Indic ations:Prurigo Apply 2x daily (or more if itchy instead of scratching) to rash/lesions all over body until resolved 454 g 021 Active Adapalene 0.1 % External GelIndications:Ac ne vulgaris Apply topically to affected area. As directed. 15 g 5 021 Active One-A-Day Womens Oral Tablet Take by mouth. Act jane Magnesium 400 MG Oral Tablet 2 tabs daily Active Zinc 50 MG Oral Tablet Take 1 Tablet by mouth in the morning. Active Promethazine HCl 25 MG Oral Tablet (Phenergan) Take 1 Tablet by mouth every 6 hours as needed. Active Acetaminophen 325 MG Oral Tablet (Tylenol)Indicati ons:Other iron deficiency anemia,Intestinal postoperative nonabsorption,S/P gastric bypass Take 2 Tablets by mouth as needed (for mild to moderate reaction (infusion reaction protocol)). Active Sodium Chloride 0.9 % Intravenous SolutionIndicatio ns:Other iron deficiency anemia,Intestinal postoperative nonabsorption,S/P gastric bypass Per [facility] IV iron anaphylaxis protocol. TO BE ADMINISTERED IN THE EVENT OF ANAPHYLACTIC REACTION 1000 mL Active dexAMETHasone Sodium Phosphate 4 MG/ML Injection Solution (Decadron)Indicat ions:Other iron deficiency anemia,Intestinal postoperative nonabsorption,S/P gastric bypass Inject 8 mg intravenously as needed for Anaphylaxis (severe allergic reaction). Per [facility] IV iron anaphylaxis protocol 2 mL Active EPINEPHrine (Anaphylaxis) 1 MG/ML Injection SolutionIndicatio ns:Other iron deficiency anemia,Intestinal postoperative nonabsorption,S/P gastric bypass Inject 0.3 mL into a large muscle as needed for Anaphylaxis (severe allergic reaction). Per [facility] IV iron anaphylaxis protocol. May repeat every 15 min as needed per infusion reaction protocol 2 mL Active Ferrous Sulfate 325 (65 Fe) MG Oral Tablet (Feosol) Take 1 Tablet by mouth daily at noon. Follow up with GI nutrition for further management. 30 Tablet 1 Active Calcium Citrate-Vitamin D 315-5 MG-MCG Oral Tablet Take 2 Tablets by mouth in the morning and 2 Tablets before bedtime. Follow up with GI nutrition for further management.. 120 Tablet 1 Active Additional Information Patient not taking.Reported on 09/03/2024 B-Complex/Vitamin C Oral Tablet (Therapeutic B Complex W/C) Take 1 Tablet by mouth in the morning. Follow up with GI nutrition for further management.. 30 Tablet 1 Active Additional Information Patient not taking.Reported on 09/03/2024 Ascorbic Acid 250 MG Oral Tablet Take 1 Tablet by mouth daily at noon. Follow up with GI nutrition for further management. 30 Tablet 1 024 Active Additional Information Patient not taking.Reported on 09/03/2024 Vitamin D3 25 MCG (1000 UT) Oral Tablet (Vitamin D3) Take 1 Tablet by mouth in the morning. Follow up with GI nutrition for further management.. 30 Tablet 1 024 Active Additional Information Patient not taking.Reported on 09/03/2024 Prochlorperazine Maleate 5 MG Oral Tablet (Compazine) Take 1 Tablet by mouth every 6 hours as needed for Nausea. 20 Tablet 024 Active Sertraline HCl 100 MG Oral Tablet (Zoloft) TAKE 2 TABLETS BY MOUTH EVERY DAY FOR DEPRESSION AND ANXIETY 180 Tablet 1 024 Active Nutren 2.0 Oral LiquidIndications :Gastroesophageal reflux disease without esophagitis,Dehyd ration,Severe protein-energy malnutrition (HCC),Diarrhea, unspecified type,Nausea and vomiting, unspecified vomiting type,Unintentiona l weight loss Pump - Administer four containers at 105 mL/hr daily as tolerated, as directed through feeding tube via feeding pump. [id number] mL 11:59 PM EST 024 2024 Active Lansoprazole 30 MG Oral Tablet Delayed Release Disintegrating (Prevacid SoluTab) 025 Active Ondansetron 4 MG Oral Tablet Disintegrating (Zofran) Place 1 Tablet on tongue every 8 hours as needed for Nausea. dissolve on tongue. 30 Tablet 3 025 Active Prochlorperazine 25 MG Rectal Suppository (Compazine) Insert into the rectum for severe Nausea/vomiting/ dry heaves, repeat in 12 hours if needed. Max 2 per episode of N/V 12 Suppository 1 025 Active Scopolamine 1 MG/3DAYS Transdermal Patch 72 Hour (Transderm Scop) Place 1 Patch over 72 hours topically on the skin every 3 days. 10 Patch 12 025 Active traZODone HCl 50 MG Oral Tablet (Desyrel)Indicati ons:Insomnia, unspecified type Take 1 Tablet by mouth at bedtime. 30 Tablet 5 025 Active clonazePAM 1 MG Oral Tablet (KlonoPIN)Indicat ions:PTSD (post-traumatic stress disorder),Major depressive disorder, remission status unspecified, unspecified whether recurrent,Anxiety Take 1 Tablet by mouth in the morning. 30 Tablet 025 Active clonazePAM 1 MG Oral Tablet (KlonoPIN)Indicat ions:PTSD (post-traumatic stress disorder),Major depressive disorder, remission status unspecified, unspecified whether recurrent,Anxiety Take 1 Tablet by mouth in the morning. 30 Tablet 025 2024 Disconti nued(Ref ill) Hospital, Clinic, or Other Facility Administered Medication Ordered Dose Route Frequency Start Date End Date Status vitamin b-12 (Cyanocobalamin) inj 1,000 mcgIndications:Postgastric surgery syndrome 1000 mcg IM [id number] 10/16/2022 07/20/2025 Active documented as of this encounter (statuses as of 09/23/2024) Active Problems Problem Noted Date Diagnosed Date [...] as of this encounter (statuses as of 09/23/2024) Resolved Problems Problem Noted Date Diagnosed Date Resolved Date Intracranial hemorrhage 11/19/202307/02 Chronic obstructive pulmonary disease 11/15/2021 11/15/2021 Pre-operative examination 11/16/2020 Morbid obesity due to excess calories 10/27/2020 12/18/2021 MEDICATION USE AGREEMENT 05/14/2012 Overview (03/04/2015): Updated 03/04/2015 MD Neli Briceño III's [place] Calculus of gallbladder with out mention of cholecystitis or obstruction 11/16/2020 documented as of this encounter (statuses as of 09/23/2024) Immunizations Name Administration Dates Next Due COVID-19 mRNA, LNP-s, No Pre serve, 2-Dose Series ([employer]) 07/25/2021,11/24/2020,11/03/2020 Seasonal Influenza Vac., MDV , IM, [...] 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 Authorizing Provider: TERRI OWENS * Telephone Encounter - Silas Montes [facility] - 09/22/2024 4:12 PM EDT Pending Prescriptions: Disp Refills clonazePAM 1 MG Oral Tablet (KlonoPIN) 30 Tab*0 Sig: Take 1 Tablet by mouth in the morning. * Telephone Encounter - Silas Montes [facility] - 09/22/2024 4:12 PM EDT I have reviewed the patient’s controlled substance dispensing history in the Prescription Drug Monitoring Program in compliance with the [facility] regulations before prescribing a controlled substance. PDMP checked on 09/22/2024. Pending Prescriptions: Disp Refills clonazePAM 1 MG Oral Tablet (KlonoPIN) 30 Tab*0 Sig: Take 1 Tablet by mouth in the morning. Last Visit: 09/03/2024 (in office), 05/25/2024 (telemedicine) Next Visit: 01/26/2025 Date medication was last filled: 08/27/24 Date medication is due for refill: 09/25/24 Pharmacy: [facility] #[facility] Is this request for a controlled substance? Yes and Urine Drug Screen Not completed Toxicology results: Results for orders placed or performed in [...] results can be found in Results Review. Please approve if appropriate. Thank you Henok Montes PharmD Clinical Pharmacist [facility] ([facility]) PH:[phone] 09/22/2024, 4:12 PM * Telephone Encounter - Di Cabrera PHARM Tech - 09/22/2024 3:46 PM EDT Pt requesting HIGH PRIORITY, pt only has 1 tablet left. Pt also requesting to reschedule appointment. Transferred pt to scheduling for further assistance. Did you pend patient's preferred pharmacy and medication before forwarding?yes Pharmacy: [facility] [id number] Pending Prescriptions: Disp Refills clonazePAM 1 MG Oral Tablet (KlonoPIN) 30 Tab*0 Sig: Take 1 Tablet by mouth in the morning. Last Visit: 09/03/2024 (in office), 05/25/2024 (telemedicine) Next Visit: 01/26/2025 If no future appointments scheduled, and last appointment is greater than a year ago, please schedule patient for a follow-up appointment Last date the medication was ordered: 08/27/2024 Is this request for a controlled substance?Yes, What was the last refill date 08/27/2024 w/ quantity 30 and dosage 1 MG and Urine Drug Screen was completed Urine Drug Screen: Results for orders placed or performed in [...] results can be found in Results Review. Patient Phone Numbers General Assembly [phone] Labs: Lab Results Component Value Date/Time CREAT 0.68 08/13/2024 12:00 AM CREAT 1.0 04/15/2020 01:47 PM POTASSIUM 4.2 08/13/2024 12:00 AM POTASSIUM 4.7 04/15/2020 01:47 PM TSH 1.56 05/03/2021 12:00 AM TSH 2.29 12/01/2019 01:58 PM LDL 151 (H) 10/22/2023 11:16 AM LDL 178 (H) 01/20/2015 10:35 AM LDL NOT APPLICABLE 01/20/2015 10:32 AM LDLCALC 162 (A) 05/03/2021 12:00 AM ALT 19 11/14/2023 03:42 PM ALT 18 05/03/2021 12:00 AM ALT 13 09/27/2015 12:14 PM HGBA1C 5.8 (H) 10/22/2023 11:16 AM HGBA1C 5.9 (A) 05/03/2021 12:00 AM HGBA1C 5.6 06/30/2013 04:04 PM documented in this encounter Plan of Treatment Upcoming Encounters Date Type Department Care Team (Late st Contact Info) Description 09/23/2024 3:00 PM EDT Telemedicine Nutrition & Weight Management, [place] [address] [place] [address] Addie Ramirez, BARBARA [address] [place] [address] 09/30/2024 11:00 AM EDT Telemedicine Psychiatry, [facility] [address] [place] [address] Kathia Martinez MD [address] [place] [address] 10/28/2024 2:30 PM EDT Office Visit Gastroenterology, [facility] [address] [place] [phone] Shashank Wells CRNP [address] [place] [address] 01/26/2025 2:00 PM EDT Office Visit Family Practice [facility] [address] [facility] [place] [address] Terri Owens PA-C [address] [facility] [place] [address] Scheduled Procedures Name Priority Associated Diagnoses Date/Ti [...] 2020 Zoster Vaccines (1 of 2) 2020 Depression Monitoring 05/09/2021 05/09/2020 COVID-19 Vaccine ( season) 2024 07/25/2021, 11/24/2020, 11/03/2020 Influenza Vaccine (FLU shot) (#1) 2024 06/17/2023, 04/24/2022, 04/20/2020, Additional history exists HbA1c 10/21/2024 10/22/2023, 110 08/2020, 06/30/2013 Mammogram 08/12/2025 08/12/2024, 0 08/2022, 08/14/2018, Additional [...] as of this encounter Visit Diagnoses Diagnosis PTSD (post-traumatic stress disorder) Posttraumatic stress disorder Major depressive disorder, remission status unspecified, unspecified whether recurrent Anxiety Anxiety state, unspecified documented in this encounter Advance Directives * [...] the patient have Health Care Power of Household Manager? Yes, not currently available * Full [...] Power of Attor carlos? No Care Teams Counter Supply Worker Relationship Specialty Start Date End Date Terri Owens PA-C [address] [place] [address] PCP - General Physician Rate Reviewer 01/11/24 documented as of this encounter
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
--- OUTSIDE RECORDS SUMMARY | 2024-11-05 04:02 | External Medical Summary | Summary of Care ---
Author Name Unknown Organization [facility] Address [address] [place] [address] Phone [phone] Care Team Providers Care Power Barker Name Role Phone Terri Owens PA-C Primary Care Provider [phone] Reason for Visit * Reason Onset Date Comments Medical Records Request 09/03/2024 Encounter Details Date Type Department Care Team (Late st Contact Info) Description 09/03/2024 Telephone Family Practice [facility] [address] [place] [address] Terri Owens PA-C [address] [place] [address] Medical Records Request Allergies No known active allergiesdocumented as of this encounter (statuses as of 09/03/2024) Medications Triamcinolone Acetonide 0.1 % External Ointment [...] deficiency anemia,Intestinal postoperative nonabsorption,S/P gastric bypass Per [facility] IV iron anaphylaxis protocol. TO BE ADMINISTERED IN THE EVENT OF ANAPHYLACTIC REACTION 1000 mL 10/25/19 Active dexAMETHasone Sodium Phosphate 4 MG/ML Injection Solution (Decadron)Indicat ions:Other iron deficiency anemia,Intestinal postoperative nonabsorption,S/P gastric bypass Inject 8 mg intravenously as needed for Anaphylaxis (severe allergic reaction). Per [facility] IV iron anaphylaxis protocol 2 mL 10/25/19 Active EPINEPHrine (Anaphylaxis) 1 MG/ML Injection SolutionIndicatio ns:Other iron deficiency anemia,Intestinal postoperative nonabsorption,S/P gastric bypass Inject 0.3 mL into a large muscle as needed for Anaphylaxis (severe allergic reaction). Per [facility] IV iron anaphylaxis protocol. May repeat [...] directed through feeding tube via feeding pump. [id number] mL 11:59 PM EST 04/15/20 24 2024 Active Lansoprazole 30 MG [...] days. 10 Patch 12 08/04/19 25 Active clonazePAM 1 MG Oral Tablet (KlonoPIN)Indicat ions:PTSD (post-traumatic stress disorder),Major depressive disorder, remission status unspecified, unspecified whether recurrent,Anxiety Take 1 Tablet by mouth in the morning. 30 Tablet 08/27/19 25 Active Additional Information Patient not taking.Reported on 09/03/2024 traZODone HCl 50 MG Oral Tablet (Desyrel)Indicati ons:Insomnia, unspecified type Take 1 Tablet by mouth at bedtime. 30 Tablet 5 09/04/19 25 Active Hospital, Clinic, or Other Facility Administered Medication Ordered Dose Route Frequency Start Date End Date Status vitamin b-12 (Cyanocobalamin) inj 1,000 mcgIndications:Postgastric surgery syndrome 1000 mcg IM [id number] 10/16/2022 07/20/2025 Active documented as of this encounter (statuses as of 09/03/2024) Active Problems Problem Noted Date Diagnosed Date [...] as of this encounter (statuses as of 09/03/2024) Resolved Problems Problem Noted Date Diagnosed Date Resolved Date Intracranial hemorrhage 11/19/202307/02 Chronic obstructive pulmonary disease 11/15/2021 11/15/2021 Pre-operative examination 11/16/2020 Morbid obesity due to excess calories 10/27/2020 12/18/2021 MEDICATION USE AGREEMENT 05/14/2012 Overview (03/04/2015): Updated 03/04/2015 MD Neli Briceño III's [place] Calculus of gallbladder with out mention of cholecystitis or obstruction 11/16/2020 documented as of this encounter (statuses as of 09/03/2024) Immunizations Name Administration Dates Next Due COVID-19 [...] 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 Forwarded to HIM ([id number]) via IOM. documented in this encounter Plan of Treatment Upcoming Encounters Date Type Department Care Team (Late st Contact Info) Description 09/11/2024 8:20 AM EDT Telemedicine Nutrition & Weight Management, [address] [address] Addie Ramirez RDN [address] [place] [address] 09/11/2024 12:40 PM EDT Telemedicine Nutrition & Weight Management, [address] [address] Addie Ramirez RDN [address] [place] [address] 09/30/2024 11:00 AM EDT Telemedicine Psychiatry, [facility] 132 [facility] [place] [address] Kathia Martinez MD 132 [facility] [place] [address] 10/28/2024 2:30 PM EDT Office Visit Gastroenterology, [facility] [address] [facility] [place] [address] Shashank Wells CRNP [facility] [place] [address] 01/26/2025 2:00 PM EDT Office Visit Family Practice [facility] [place] [address] [place] [address] Terri Owens PA-C [address] [place] [address] Scheduled Procedures Name Priority Associated Diagnoses Date/Ti [...] exists HbA1c 10/21/2024 10/22/2023, 11/0 08/2020, 06/30/2013 Mammogram 08/12/2025 08/12/2024, 02/0 08/2022, 08/14/2018, Additional history exists Lipid Panel [...] patient have Health Care Power of Manager Qa? Yes, not currently available * Full Code [...] Power of Attor carlos? No Care Teams Power Barker Relationship Specialty Start Date End Date Terri Owens PA-C [address] [place] [address] PCP - General Physician Loom Control Chain Builder 01/11/24 documented as of this encounter
--- OUTSIDE RECORDS SUMMARY | 2024-11-05 04:02 | External Medical Summary | Summary of Care ---
Author Name Unknown Organization [facility] Address [address] [place] [address] Phone [phone] Care Team Providers Care Barber Shop Manager Name Role Phone Terri Owens PA-C Primary Care Provider [phone] Reason for Visit * Reason Comments Forms Request Encounter Details Date Type Department Care Team (Late st Contact Info) Description 09/03/2024 8:00 AM EST Office Visit Family Practice [facility] 200 [facility] [place] [address] Terri Owens PA-C [address] [facility] [place] [address] History of stroke*; Insomnia, unspecified type; Major depressive disorder with current active episode, unspecified depression episode severity, unspecified whether recurrent; Severe protein-energy malnutrition (HCC); Attention to G-tube (HCC) Allergies No known [...] deficiency anemia,Intestinal postoperative nonabsorption,S/P gastric bypass Per [facility] IV iron anaphylaxis protocol. TO BE ADMINISTERED IN THE EVENT OF ANAPHYLACTIC REACTION 1000 mL Active dexAMETHasone Sodium Phosphate 4 MG/ML Injection Solution (Decadron)Indicat ions:Other iron deficiency anemia,Intestinal postoperative nonabsorption,S/P gastric bypass Inject 8 mg intravenously as needed for Anaphylaxis (severe allergic reaction). Per [facility] IV iron anaphylaxis protocol 2 mL Active EPINEPHrine (Anaphylaxis) 1 MG/ML Injection SolutionIndicatio ns:Other iron deficiency anemia,Intestinal postoperative nonabsorption,S/P gastric bypass Inject 0.3 mL into a large muscle as needed for Anaphylaxis (severe allergic reaction). Per [facility] IV iron anaphylaxis protocol. May repeat every 15 min as needed per infusion reaction protocol 2 mL Active Ferrous Sulfate 325 (65 Fe) MG Oral Tablet (Feosol) Take 1 Tablet by mouth daily at noon. Follow up with GI nutrition for further management. 30 Tablet Active Calcium Citrate-Vitamin D 315-5 MG-MCG Oral Tablet Take 2 Tablets by mouth in the morning and 2 Tablets before bedtime. Follow up with GI nutrition for further management.. 120 Tablet Active Additional Information Patient not taking.Reported on 09/03/2024 B-Complex/Vitamin C Oral Tablet (Therapeutic B Complex W/C) Take 1 Tablet by mouth in the morning. Follow up with GI nutrition for further management.. 30 Tablet Active Additional Information Patient not taking.Reported on [...] directed through feeding tube via feeding pump. [id number] mL 5 11:59 PM EST 024 2024 Active Lansoprazole [...] 3 days. 10 Patch 12 025 Active clonazePAM 1 MG Oral Tablet (KlonoPIN)Indicat ions:PTSD (post-traumatic stress disorder),Major depressive disorder, remission status unspecified, unspecified whether recurrent,Anxiety Take 1 Tablet by mouth in the morning. 30 Tablet 025 Active Additional Information Patient not taking.Reported on 09/03/2024 traZODone HCl 50 MG Oral Tablet (Desyrel)Indicati ons:Insomnia, unspecified type Take 1 Tablet by mouth at bedtime. 30 Tablet 5 025 Active traZODone HCl 50 MG Oral Tablet (Desyrel)Indicati ons:Insomnia, unspecified type Take 1 Tablet by mouth at bedtime. 30 Tablet 5 025 2024 Disconti nued(Ref ill) Hospital, Clinic, or Other Facility Administered Medication Ordered Dose Route Frequency Start Date End Date Status vitamin b-12 (Cyanocobalamin) inj 1,000 mcgIndications:Postgastric surgery syndrome 1000 mcg IM [id number] 10/16/2022 07/20/2025 Active documented as of this [...] (03/04/2015): Updated 03/04/2015 MD Neli Briceño III's [place] Calculus of gallbladder with out mention of cholecystitis or obstruction 11/16/2020 documented as of this encounter (statuses as of 09/03/2024) Immunizations Name Administration Dates Next Due COVID-19 mRNA, LNP-s, No Pre serve, 2-Dose Series (AeroSurgical) 07/25/2021,11/24/2020,11/03/2020 Seasonal Influenza Vac., MDV , IM, [...] 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 (5 years old or older) Answer Date of Assessment Author No 11/06/2023 5:53 PM EDT Giancarlo Beltran RN * Because of a physical, mental, or emotional condition, do you have difficulty doing errands alone such as visiting a doctor’s office or shopping? (15 years old or older) Answer Date of Assessment Author No 11/06/2023 5:53 PM EDGiancarlo Ramirez RN documented as of this encounter Mental Status * Because of a physical, mental, or emotional condition, do you have serious difficulty concentrating, remembering, or making decisions? (5 years old or older) Answer Entry Date Author No 11/06/2023 5:53 PM Giancarlo Rubio RN documented in this encounter Progress Notes * Terri Owens PA-C - 09/03/2024 9:01 AM EST Images from the original note were not included. History of Present Illness Aleah Marie is a 54 year old female that presents for Forms Request Patient is a 54-year-old female who presents today for a follow-up. History of stroke which damagedher nausea centers of the brain. She continues to have issues with her gut and malnutrition. Also gets very kind of anxious. She continues to see GI, Neurology, for follow-up. Most recent hospital trip was on July 19. She had an overnight stay. Today she is not feeling well she is getting some nausea and experiencing some abdominal pain. Physical Exam Vitals: 09/03/24 0813 Temp: 98.3 °F (36.8 °C) Pulse: 60 Resp: 16 SpO2: 96% BP: 90/60 BP Readings from Last 3 Encounters: 09/03/24 90/60 08/13/24 88/60 08/04/24 102/64 Wt Readings from Last 3 Encounters: 09/03/24 114 lb 12 oz (52.1 kg) 08/13/24 112 lb (50.8 kg) 08/04/24 114 lb (51.7 kg) General: alert, well nourished, well developed, cooperative, and ill looking Head: Normocephalic, No masses, lesions, tenderness or abnormalities Eye Exam: PERRLA, extraocular movements intact, conjunctiva are pink and non- injected, sclera clear Neck: supple, no adenopathy, no bruits, thyroid normal size, non-tender, without nodularity Heart: regular rate & rhythm, no murmur, and no gallops Lungs: chest symmetric with normal AP diameter, no chest deformities noted, normal respiratory rateand rhythm, no chest wall tenderness, diaphragmatic excursion normal, lungs clear to auscultation I have reviewed the following results: None Assessment and Plan History of stroke (Primary) Insomnia, unspecified type - traZODone HCl 50 MG Oral Tablet (Desyrel); Take 1 Tablet by mouth at bedtime. Major depressive disorder with current active episode, unspecified depression episode severity, unspecified whether recurrent Severe protein-energy malnutrition (HCC) Attention to G-tube (HCC) Follow Up: Return in about 4 months (around 01/03/2025) for Clinic Visit. | For: Clinic Visit Paperwork for disability filled out sent to scanning. Wrap-Up Follow Up: Return in about 4 months (around 01/03/2025) for Clinic Visit. | For: Clinic Visit Time: I spent a total of 30-39 minutes (exact time 36 mins) on the date of service in preparation, delivery, and documentation of the care provided to Aleah Marie excluding any time spent in the performance of separately billed services. documented in this encounter Nursing Notes * Lynda Lira NA - 09/03/2024 8:03 AM EST Aleah Marie presents for forms completion. Denies any concerns at this time. Patient would like to go over her blood work results. Medications & HM reviewed. documented in this encounter Plan of Treatment Upcoming Encounters Date Type Department Care Team (Late st Contact Info) Description 09/11/2024 8:20 AM EDT Telemedicine Nutrition & Weight Management, [address] [place] [address] Addie Ramirez RDN [address] [place] [address] 09/11/2024 12:40 PM EDT Telemedicine Nutrition & Weight Management, [place] [address] [place] [address] Addie Ramirez RDN [address] [place] [address] 09/30/2024 11:00 AM EDT [facility] [address] [place] [address] Kathia Martinez MD [address] [place] [address] 10/28/2024 2:30 PM EDT Office Visit [facility]ology, [facility] [place] [address] Shashank Wells CRNP [address] [place] [address] 01/26/2025 2:00 PM EDT Office Visit Family Practice [facility] 200 [facility] [place] [address] Terri Owens PA-C [address] [facility] [place] [address] Scheduled Procedures Name Priority Associated Diagnoses Date/Ti [...] 2020 Depression Monitoring 05/09/2021 05/09/2020 COVID-19 Vaccine (4 - season) 2024 07/25/2021, 11/24/2020, 11/03/2020 Influenza Vaccine [...] as of this encounter Visit Diagnoses Diagnosis History of stroke- Primary Transient ischemic attack (TIA), and cerebral infarction without residual deficits Insomnia, unspecified type Major depressive disorder with current active episode, unspecified depression episode severity, unspecified whether recurrent Severe protein-energy malnutrition (HCC) Other severe protein-calorie malnutrition Attention to G-tube (HCC) Attention to gastrostomy [...] the patient have Health Care Power of Inspector Aide? Yes, not currently available * Full Code [...] Power of Attor carlos? No Care Teams Barber Shop Manager Relationship Specialty Start Date End Date Graciela Terri ANDREA [place] [address] [place] [address] PCP - General Physician Corrosion Control Fitter 01/11/24 documented as of this encounter"
--- OUTSIDE RECORDS SUMMARY | 2024-11-05 04:02 | External Medical Summary | Summary of Care ---
Author Name Unknown Organization [facility] Address [address] [place] [address] Phone [phone] Care Team Providers Care School Childcare Attendant Name Role Phone Graciela Terri Lorenzo MENDEZ Primary Care Provider [phone] Reason for Visit * Reason Onset Date Comments Advice 10/25/2024 Encounter Details Date Type Department Care Team (Late st Contact Info) Description 10/25/2024 Telephone Access Center, [place] [address] [facility] *DO NOT REMOVE THIS DEPARTMENT* [place] [address] Services, Scheduling [address] [place] [address] Advice Allergies No known active allergiesdocumented as of this encounter (statuses as of 10/26/2024) Medications Triamcinolone Acetonide 0.1 % External Ointment [...] deficiency anemia,Intestinal postoperative nonabsorption,S/P gastric bypass Per [facility] IV iron anaphylaxis protocol. TO BE ADMINISTERED IN THE EVENT OF ANAPHYLACTIC REACTION 1000 mL 10/25/19 Active dexAMETHasone Sodium Phosphate 4 MG/ML Injection Solution (Decadron)Indicat ions:Other iron deficiency anemia,Intestinal postoperative nonabsorption,S/P gastric bypass Inject 8 mg intravenously as needed for Anaphylaxis (severe allergic reaction). Per [facility] IV iron anaphylaxis protocol 2 mL 10/25/19 Active EPINEPHrine (Anaphylaxis) 1 MG/ML Injection SolutionIndicatio ns:Other iron deficiency anemia,Intestinal postoperative nonabsorption,S/P gastric bypass Inject 0.3 mL into a large muscle as needed for Anaphylaxis (severe allergic reaction). Per [facility] IV iron anaphylaxis protocol. May repeat every [...] directed through feeding tube via feeding pump. [id number] mL 5 11:59 PM EDT 04/15/20 24 [...] 1,000 mcgIndications:Postgastric surgery syndrome 1000 mcg IM [id number] 10/16/2022 07/20/2025 Active documented as of this encounter (statuses as of 10/26/2024) Active Problems Problem Noted Date Diagnosed Date [...] as of this encounter (statuses as of 10/26/2024) Resolved Problems Problem Noted Date Diagnosed Date Resolved Date Intracranial hemorrhage 11/19/202307/02 Chronic obstructive pulmonary disease 11/15/2021 11/15/2021 Pre-operative examination 11/16/2020 Morbid obesity due to excess calories 10/27/2020 12/18/2021 MEDICATION USE AGREEMENT 05/14/2012 Overview (03/04/2015): Updated 03/04/2015 MD Neli Briceño III's [place] Calculus of gallbladder with out mention of cholecystitis or obstruction 11/16/2020 Overview (09/30/2024): ICD-10 Update of Inactive Term documented as of this encounter (statuses as of 10/26/2024) Immunizations Name Administration Dates Next Due COVID-19 mRNA, LNP-s, No Pre serve, 2-Dose Series (Touchstorm) 07/25/2021,11/24/2020,11/03/2020 Seasonal Influenza Vac., MDV , IM, [...] 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 Not [...] encounter Miscellaneous Notes * Telephone Encounter - Lori Domínguez OSA [...] appt on Saturday.Patient can be reached at [phone] documented in this encounter Plan of Treatment Upcoming Encounters Date Type Department Care Team (Late st Contact Info) Description 10/28/2024 2:30 PM EDT Office Visit Gastroenterology, [facility] [address] [place] [phone] Shashank Wells CRNP [address] [place] [address] 10/29/2024 10:00 AM EDT Telemedicine Psychiatry, [facility] [address] [place] [address] Kathia Martinez MD [address] [place] [address] 01/26/2025 2:00 PM EDT Office Visit [facility] [address] [place] [address] Terri Owens PA-C [address] [place] [address] [address] Scheduled Procedures Name Priority Associated Diagnoses Date/Ti [...] 04/20/2020, Additional history exists Mammogram 08/12/2025 08/12/2024, 08/2022, 08/14/2018, Additional history exists Lipid Panel [...] the patient have Health Care Power of Case Assembler? Yes, not currently available * Full Code [...] Power of Attor carlos? No Care Teams School Childcare Attendant Relationship Specialty Start Date End Date Graciela Terri ANDREA [place] [facility] [address] [facility] [place] [address] PCP - General Physician Director Decision Support 01/11/24 documented as of this encounter
--- OUTSIDE RECORDS SUMMARY | 2024-11-05 04:02 | External Medical Summary | Summary of Care ---
Author Name Unknown Organization [facility] Address [address] [place] [address] Phone [phone] Care Team Providers Care Field Care Coordinator Name Role Phone Graciela Terri Lorenzo MENDEZ Primary Care Provider [phone] Reason for Visit * Reason Onset Date Comments Advice 10/25/2024 Encounter Details Date Type Department Care Team (Late st Contact Info) Description 10/25/2024 Telephone Access Center, [place] [address] [facility] *DO NOT REMOVE THIS DEPARTMENT* [place] [address] Services, Scheduling [address] [place] [address] Advice Allergies No known active allergiesdocumented as [...] anemia,Intestinal postoperative nonabsorption,S/P gastric bypass Per [facility] IV iron anaphylaxis protocol. TO BE ADMINISTERED IN THE EVENT OF ANAPHYLACTIC REACTION 1000 mL 10/25/19 Active dexAMETHasone Sodium Phosphate 4 MG/ML Injection Solution (Decadron)Indicat ions:Other iron deficiency anemia,Intestinal postoperative nonabsorption,S/P gastric bypass Inject 8 mg intravenously as needed for Anaphylaxis (severe allergic reaction). Per [facility] IV iron anaphylaxis protocol 2 mL 10/25/19 Active EPINEPHrine (Anaphylaxis) 1 MG/ML Injection SolutionIndicatio ns:Other iron deficiency anemia,Intestinal postoperative nonabsorption,S/P gastric bypass Inject 0.3 mL into a large muscle as needed for Anaphylaxis (severe allergic reaction). Per [facility] IV iron anaphylaxis protocol. May [...] directed through feeding tube via feeding pump. [id number] mL 5 11:59 PM EDT 04/15/20 24 [...] 1,000 mcgIndications:Postgastric surgery syndrome 1000 mcg IM [id number] 10/16/2022 07/20/2025 Active documented as of this [...] (03/04/2015): Updated 03/04/2015 MD Neli Briceño III's [place] Calculus of gallbladder with out mention of cholecystitis or obstruction 11/16/2020 Overview (09/30/2024): ICD-10 Update of Inactive Term documented as of this encounter (statuses as of 10/26/2024) Immunizations Name Administration Dates Next Due COVID-19 mRNA, LNP-s, No Pre serve, 2-Dose Series (Livemap) 07/25/2021,11/24/2020,11/03/2020 Seasonal Influenza Vac., MDV , IM, [...] 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 Not [...] appt on Saturday.Patient can be reached at [phone] documented in this encounter Plan of Treatment Upcoming Encounters Date Type Department Care Team (Late st Contact Info) Description 10/28/2024 2:30 PM EDT Office Visit Gastroenterology, [facility] [address] [place] [phone] Shashank Wells CRNP [address] [place] [address] 10/29/2024 10:00 AM EDT Telemedicine Psychiatry, [facility] [address] [place] [address] Kathia Martinez MD [address] [place] [address] 01/26/2025 2:00 PM EDT [facility] [address] [place] [address] [address] Terri Owens PA-C [address] [place] [address] Scheduled Procedures Name Priority Associated Diagnoses Date/Ti [...] the patient have Health Care Power of Roofer Applicator? Yes, not currently available * Full Code [...] Power of Attor carlos? No Care Teams Field Care Coordinator Relationship Specialty Start Date End Date Graciela Terri ANDREA [place] [facility] [address] [facility] [place] [address] PCP - General Physician Rock Room Worker 01/11/24 documented as of this encounter
--- OUTSIDE RECORDS SUMMARY | 2024-11-05 04:02 | External Medical Summary | Summary of Care ---
Author Name Unknown Organization [facility] Address [address] [place] [address] Phone [phone] Care Team Providers Care Paster Hat Lining Name Role Phone Terri Owens PA-C Primary Care Provider [phone] Reason for Visit * Reason Onset Date Comments Medication Refill 10/20/2024 Encounter Details Date Type Department Care Team (Late st Contact Info) Description 10/20/2024 Refill Family Practice [facility] [address] [facility] [place] [address] Terri Owens PA-C [address] [place] [address] PTSD (post-traumatic stress disorder); Major depressive disorder, remission status unspecified, unspecified whether recurrent; Anxiety Allergies No known active allergiesdocumented as of this encounter (statuses as of 10/20/2024) Medications Triamcinolone Acetonide 0.1 % External Ointment [...] deficiency anemia,Intestinal postoperative nonabsorption,S/P gastric bypass Per [facility] IV iron anaphylaxis protocol. TO [...] directed through feeding tube via feeding pump. [id number] mL 5 11:59 PM EDT 024 2024 Active Lansoprazole 30 MG Oral [...] 1,000 mcgIndications:Postgastric surgery syndrome 1000 mcg IM [id number] 10/16/2022 07/20/2025 Active documented as of this encounter (statuses as of 10/20/2024) Active Problems Problem Noted Date Diagnosed Date [...] as of this encounter (statuses as of 10/20/2024) Resolved Problems Problem Noted Date Diagnosed Date Resolved Date Intracranial hemorrhage 11/19/202307/02 Chronic obstructive pulmonary disease 11/15/2021 11/15/2021 Pre-operative examination 11/16/2020 Morbid obesity due to excess calories 10/27/2020 12/18/2021 MEDICATION USE AGREEMENT 05/14/2012 Overview (03/04/2015): Updated 03/04/2015 MD Neli Briceño III's [place] Calculus of gallbladder with out mention of cholecystitis or obstruction 11/16/2020 Overview (09/30/2024): ICD-10 Update of Inactive Term documented as of this encounter (statuses as of 10/20/2024) Immunizations Name Administration Dates Next Due COVID-19 mRNA, LNP-s, No Pre serve, 2-Dose Series ([employer]) 07/25/2021,11/24/2020,11/03/2020 Seasonal Influenza Vac., MDV , IM, [...] 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 Authorizing Provider: TERRI OWENS * Telephone Encounter - Sunita Lozano PA-C - 10/20/2024 10:39 AM EDT [facility] Inboxologist Note Medication Refill Request This prescription can not be addressed by the Inboxology team due to: No uds This prescription will remain in the PCP inbox to be addressed by the PCP upon their return, or a covering provider in that clinic. Sunita Lozano PA-C 10/20/2024 10:39 AM * Telephone Encounter - Kenyon Piña, [facility] - 10/20/2024 8:35 AM EDTPending Prescriptions: Disp Refills clonazePAM 1 MG Oral Tablet (KlonoPIN) 30 Tab*0 Sig: Take 1 Tablet by mouth in the morning. * Telephone Encounter - Kenyon Piña [facility] - 10/20/2024 8:33 AM EDT I have reviewed the patient’s controlled substance dispensing history in the Prescription Drug Monitoring Program in compliance with the [facility] regulations before prescribing a controlled substance. PDMP checked on 10/20/2024. Pending Prescriptions: Disp Refills clonazePAM 1 MG Oral Tablet (KlonoPIN) 30 Tab*0 Sig: Take 1 Tablet by mouth in the morning. Last Visit: 09/03/2024 (in office), 05/25/2024 (telemedicine) Next Visit: 01/26/2025 Date medication was last filled: 09/23/24 Date medication is due for refill: 10/22/24 Pharmacy: [id number] Is this request for a controlled [...] Results Review. Please approve if appropriate. Thank You, Kenyon Rivers [facility] Clinical Pharmacist [facility] ([facility]) 10/20/2024, 8:34 AM * Telephone Encounter - Sunshine Winters CPhT - 10/20/2024 8:12 AM EDT Did you pend patient's preferred pharmacy and medication before forwarding?yes Pharmacy: [id number] [facility] Pending Prescriptions: Disp Refills clonazePAM 1 MG Oral Tablet (KlonoPIN) 30 Tab*0 Sig: Take 1 Tablet by mouth in the morning. Last Visit: 09/03/2024 (in office), 05/25/2024 (telemedicine) Next Visit: 01/26/2025 If no future appointments scheduled, and last appointment is greater than a year ago, please schedule patient for a follow-up appointment Last date the medication was ordered: 09/22/2024 Is this request for a controlled substance?Yes, What was the last refill date 09/22/2024 w/ [id number] and dosage 1mg and Urine Drug Screen Not completed Urine Drug Screen: Results for orders [...] found in Results Review. Patient Phone Numbers [employer] [phone] Labs: Lab Results Component Value Date/Time CREAT [...] 10/28/2024 2:30 PM EDT Office Visit Gastroenterology, [facility] [address] [place] [id number] Shashank Wells CRNP [address] [place] [address] 10/29/2024 10:00 AM EDT Telemedicine Psychiatry, [facility] [address] [place] [address] Kathia Martinez MD [address] [place] [address] 01/26/2025 2:00 PM EDT Office Visit Family Practice [facility] [address] [facility] [place] [address] Terri Owens PA-C [address] [facility] [place] [address] Scheduled Procedures Name Priority Associated Diagnoses Date/Ti [...] Cancer Screening 12/26/2019 Pap Smear 12/26/2019 12/25/2016, 03/08/2015, 05/20/2012 (Done elsewhere), Additional history exists Pneumococcal [...] the patient have Health Care Power of Regional Geodetic Advisor? Yes, not currently available * Full Code [...] patient have Health Care Power of Attor carlso? No Care Teams Paster Hat Lining Relationship Specialty Start Date End Date Terri Owens PA-C [facility] Sneha Hendricks [facility] [place] [address] PCP - General Physician Swing Tender 01/11/24 documented as of this encounter
--- OUTSIDE RECORDS SUMMARY | 2024-11-05 04:03 | External Medical Summary | Summary of Care ---
Author Name Unknown Organization [facility] Address [address] [place] [address] Phone [phone] Care Team Providers Care Live In Companion Name Role Phone Terri Owens PA-C Primary Care Provider Reason for Visit * Reason Comments eRx-Medication Refill Encounter Details Date Type Department Care Team (Late st Contact Info) Description 08/26/2024 Refill Family Practice [facility] [address] [facility] [place] [address] Terri Owens PA-C [address] [facility] [place] [address] PTSD (post-traumatic stress disorder); Major depressive disorder, remission status unspecified, unspecified whether recurrent; Anxiety Allergies No known active allergiesdocumented as of this encounter (statuses as of 08/28/2024) Medications Triamcinolone Acetonide 0.1 % External Ointment [...] 400 MG Oral Tablet 2 tabs daily 11/14/20 23 Active Zinc 50 MG Oral Tablet [...] OF ANAPHYLACTIC REACTION 1000 mL 10/25/19 Active Additional Information Patient not taking.Informant: Patient, Reported on 11/06/2023 dexAMETHasone Sodium Phosphate 4 MG/ML Injection Solution (Decadron)Indicat ions:Other iron deficiency anemia,Intestinal postoperative nonabsorption,S/P gastric bypass Inject 8 mg intravenously as needed for Anaphylaxis (severe allergic reaction). Per [facility] IV iron anaphylaxis protocol 2 mL 10/25/19 Active Additional Information Patient not taking.Informant: Patient, Reported on 08/13/2024 EPINEPHrine (Anaphylaxis) 1 MG/ML Injection SolutionIndicatio ns:Other [...] Active Additional Information Patient not taking.Reported on 08/13/2024 Calcium Citrate-Vitamin D 315-5 MG-MCG Oral Tablet Take 2 Tablets by mouth in the morning and 2 Tablets before bedtime. Follow up with GI nutrition for further management.. 120 Tablet 1 11/11/19 Active Additional Information Patient not taking.Reported on 08/13/2024 B-Complex/Vitamin C Oral Tablet (Therapeutic B Complex W/C) Take 1 Tablet by mouth in the morning. Follow up with GI nutrition for further management.. 30 Tablet 1 11/12/19 24 Active Additional Information Patient not taking.Reported on 08/13/2024 Ascorbic Acid 250 MG Oral Tablet Take 1 Tablet by mouth daily at noon. Follow up with GI nutrition for further management. 30 Tablet 1 11/11/19 24 Active Additional Information Patient not taking.Reported on 08/13/2024 Vitamin D3 25 MCG (1000 UT) Oral Tablet (Vitamin D3) Take 1 Tablet by mouth in the morning. Follow up with GI nutrition for further management.. 30 Tablet 1 11/12/19 24 Active Additional Information Patient not taking.Reported on 08/13/2024 Prochlorperazine Maleate 5 MG Oral Tablet (Compazine) [...] directed through feeding tube via feeding pump. [id number] mL 5 11:59 PM EST 04/15/20 24 2024 Active Lansoprazole 30 MG Oral Tablet Delayed Release Disintegrating (Prevacid SoluTab) GIVE 1 TABLET VIA PEG TUBE DAILY IN THE MORNING 07/20/19 25 Active Ondansetron 4 MG Oral Tablet Disintegrating (Zofran) Place 1 Tablet on tongue every 8 hours as needed for Nausea. dissolve on tongue. 30 Tablet 3 07/27/19 25 Active traZODone HCl 50 MG Oral Tablet (Desyrel)Indicati ons:Insomnia, unspecified type Take 1 Tablet by mouth at bedtime. 30 Tablet 5 07/27/19 25 Active Prochlorperazine 25 MG Rectal [...] the morning. 30 Tablet 08/27/19 25 Active Hospital, Clinic, or Other Facility Administered Medication Ordered Dose Route Frequency Start Date End Date Status vitamin b-12 (Cyanocobalamin) inj 1,000 mcgIndications:Postgastric surgery syndrome 1000 mcg IM [id number] 10/16/2022 07/20/2025 Active documented as of this encounter (statuses as of 08/28/2024) Active Problems Problem Noted Date Diagnosed Date [...] as of this encounter (statuses as of 08/28/2024) Resolved Problems Problem Noted Date Diagnosed Date Resolved Date Intracranial hemorrhage 11/19/202307/02 Chronic obstructive pulmonary disease 11/15/2021 11/15/2021 Pre-operative examination 11/16/2020 Morbid obesity due to excess calories 10/27/2020 12/18/2021 MEDICATION USE AGREEMENT 05/14/2012 Overview (03/04/2015): Updated 03/04/2015 MD Neli Briceño III's [place] Calculus of gallbladder with out mention of cholecystitis or obstruction 11/16/2020 documented as of this encounter (statuses as of 08/28/2024) Immunizations Name Administration Dates Next Due COVID-19 [...] 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 Not [...] of Assessment Author No 11/06/2023 5:53 PM Giancarol Rubio RN * Do you have difficulty [...] encounter Miscellaneous Notes * Telephone Encounter - Elaine Carrasco, [facility] - 08/28/2024 10:33 AM EST Refused Prescriptions: Disp Refills clonazePAM 1 MG Oral Tablet (KlonoPIN) 30 Tab*0 Sig: TAKE 1 TABLET BY MOUTH EVERY DAY NEEDED FOR ANXIETYRefused By: ELAINE CARRASCO MReason for Refusal: Too soon documented in this encounter Plan of Treatment Upcoming Encounters Date Type Department Care Team (Late st Contact Info) Description 09/11/2024 8:20 AM EDT Telemedicine Nutrition & Weight Management, [place] [address] [place] [address] Addie Ramirez RDN [address] [place] [address] 09/11/2024 12:40 PM EDT Telemedicine Nutrition & Weight Management, [place] [address] [place] [address] Addie Ramirez RDN [address] [place] [address] 09/30/2024 11:00 AM EDT Telemedicine Psychiatry, [facility] [address] [place] [address] Kathia Martinez MD [address] [place] [address] 10/28/2024 2:30 PM EDT Office Visit Gastroenterology, [facility] [address] [place] [address] Shashank Wells CRNP [address] [place] [address] Scheduled Procedures Name Priority Associated Diagnoses Date/Ti [...] 10/22/2023, 110 08/2020, 06/30/2013 Mammogram 08/12/2025 08/12/2024, 020 08/2022, 08/14/2018, Additional [...] the patient have Health Care Power of Electrical Cad Designer? Yes, not currently available * Full Code [...] Power of Attor carlos? No Care Teams Live In Companion Relationship Specialty Start Date End Date Graciela Terri ANDREA [place] [address] [place] [address] PCP - General Physician Patient Care Coordinator 01/11/24 documented as of this encounter
--- OUTSIDE RECORDS SUMMARY | 2024-11-05 04:03 | External Medical Summary | Summary of Care ---
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 Maintenance Due Date Last Done Comments [...] as of this encounter Visit Diagnoses Diagnosis Current moderate episode of major depressive disorder, unspecified whether recurrent (HCC)- Primary Protein-calorie malnutrition, unspecified severity (HCC) documented in this encounter Advance Directives * [...] the patient have Health Care Power of Sausage Stuffer? Yes, not currently available * Full Code [...] Power of Attor carlos? No Care Teams Big Data Admin Relationship Specialty Start Date End Date Kannan Terri ANDREA [place] [address] [facility] [place] [address] PCP - General Physician Dive Supervisor 7/13/24 documented as of this encounter
--- OUTSIDE RECORDS SUMMARY | 2024-11-05 04:03 | External Medical Summary | Summary of Care ---
Author Name Unknown Organization [facility] Address [address] [place] [address] Phone [phone] Care Team Providers Care Orchid Superintendent Name Role Phone Terri Owens PA-C Primary Care Provider [phone] Encounter Details Date Type Department Care Team (Late st Contact Info) Description 08/26/2024 Telephone Family Practice [facility] [address] [place] [address] Terri Owens PA-C [address] [place] [address] Allergies No known active allergiesdocumented as of [...] postoperative nonabsorption,S/P gastric bypass Per [facility] IV iron anaphylaxis protocol. TO BE ADMINISTERED IN THE EVENT OF ANAPHYLACTIC REACTION 1000 mL 10/25/19 Active Additional Information Patient not taking.Informant: Patient, Reported on 11/06/2023 dexAMETHasone Sodium Phosphate 4 MG/ML Injection Solution (Decadron)Indicat ions:Other iron deficiency anemia,Intestinal postoperative nonabsorption,S/P gastric bypass Inject 8 mg intravenously as needed for Anaphylaxis (severe allergic reaction). Per [facility] IV iron anaphylaxis protocol 2 [...] directed through feeding tube via feeding pump. [id number] mL 5 3:41 PM EST 04/15/20 24 2024 Active Lansoprazole [...] days. 10 Patch 12 08/04/19 25 Active Hospital, Clinic, or Other Facility Administered Medication Ordered Dose Route Frequency Start Date End Date Status vitamin b-12 (Cyanocobalamin) inj 1,000 mcgIndications:Postgastric surgery syndrome 1000 mcg IM [id number] 10/16/2022 07/20/2025 Active documented as of this [...] (03/04/2015): Updated 03/04/2015 MD Neli Briceño III's [place] Calculus of gallbladder with out mention of cholecystitis or obstruction 11/16/2020 documented as of this encounter (statuses as of 08/28/2024) Immunizations Name Administration Dates Next Due COVID-19 mRNA, LNP-s, No Pre serve, 2-Dose Series (Wow! 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 (5 years old or older) Answer Entry Date Author No 11/06/2023 5:53 PM Giancarlo Rubio RN documented in this encounter Miscellaneous Notes * Telephone Encounter - Benitez Pena LPN - 08/26/2024 8:04 AM EST The pt had a stroke about a year and a half ago and would like to see psychiatry. She said she has experienced some trauma because of this and she would like to see a psychiatrist. She has active referrals from multiple providers. I walked her through the process to schedule a referral through the [employer] [facility]. She was advised to call us back and ask for the psychiatry department if she has any issues. documented in this encounter Plan of Treatment Upcoming Encounters Date Type Department Care Team (Late st Contact Info) Description 09/11/2024 8:20 AM EDT Telemedicine Nutrition & Weight Management, [address] [address] Addie Ramirez RDN [address] [place] [address] 09/11/2024 12:40 PM EDT Telemedicine Nutrition & Weight Management, [place] [address] [place] [address] Addie Ramirez RDN [address] [place] [address] 09/30/2024 11:00 AM EDT Telemedicine Psychiatry, [facility] [address] [place] [address] Kathia Martinez MD [address] [place] [address] 10/28/2024 2:30 PM EDT Office Visit Gastroenterology, [facility] [address] [place] [address] Shashank Wells CRNP [address] [place] [address] Scheduled Procedures Name Priority Associated Diagnoses Date/Ti me ESOPHAGOGASTRODUODENOSCOPY ( EGD), FLEXIBLE, TRANSORAL, DIAGNOSTIC Recall Intestinal metaplasia of stomach COLONOSCOPY FLEXIBLE PROXIMAL DIAGNOSTIC Recall Screen for colon cancer [facility] Maintenance Due Date Last Done Comments HIV [...] Depression Monitoring 05/09/2021 05/09/2020 COVID-19 Vaccine ( - season) 2024 07/25/2021, 11/24/2020, 11/03/2020 Influenza Vaccine (FLU shot) (#1) 2024 06/17/2023, 04/24/2022, 04/20/2020, Additional history exists HbA1c 10/21/2024 10/22/2023, 11/0 08/2020, 06/30/2013 Mammogram 08/12/2025 08/12/2024, 0 08/2022, [...] the patient have Health Care Power of Judge? Yes, not currently available * Full Code [...] Power of Attor carlos? No Care Teams Orchid Superintendent Relationship Specialty Start Date End Date Graciela Terri ANDREA [place] [address] [place] [address] PCP - General Physician Die Press Operator 01/11/24 documented as of this encounter
--- OUTSIDE RECORDS SUMMARY | 2024-11-05 04:03 | External Medical Summary | Summary of Care ---
Author Name Unknown Organization [facility] Address [address] [place] [address] Phone [phone] Care Team Providers Care Plate Worker Name Role Phone Terri Owens PA-C Primary Care Provider [phone] Reason for Visit * Reason Onset Date Comments Medication Refill 08/26/2024 Encounter Details Date Type Department Care Team (Late st Contact Info) Description 08/26/2024 Refill Family Practice [facility] [address] [facility] [place] [address] Terri Owens PA-C [address] [place] [address] PTSD (post-traumatic stress disorder); Major depressive disorder, [...] deficiency anemia,Intestinal postoperative nonabsorption,S/P gastric bypass Per [facility] IV iron anaphylaxis protocol. TO BE ADMINISTERED IN THE EVENT OF ANAPHYLACTIC REACTION 1000 mL Active Additional Information Patient not taking.Informant: Patient, Reported on 11/06/2023 dexAMETHasone Sodium Phosphate 4 MG/ML Injection Solution (Decadron)Indicat ions:Other iron deficiency anemia,Intestinal postoperative nonabsorption,S/P gastric bypass Inject 8 mg intravenously as needed for Anaphylaxis (severe allergic reaction). Per [facility] IV iron anaphylaxis protocol 2 mL Active Additional Information Patient not taking.Informant: [...] for further management. 30 Tablet 1 Active Additional Information Patient [...] FOR DEPRESSION AND ANXIETY 180 Tablet 1 Active Nutren 2.0 Oral LiquidIndications :Gastroesophageal reflux disease without esophagitis,Dehyd ration,Severe protein-energy malnutrition (HCC),Diarrhea, unspecified type,Nausea and vomiting, unspecified vomiting type,Unintentiona l weight loss Pump - Administer four containers at 105 mL/hr daily as tolerated, as directed through feeding tube via feeding pump. [id number] mL 11:59 PM EST 024 2024 Active Lansoprazole 30 MG Oral Tablet Delayed Release Disintegrating (Prevacid SoluTab) GIVE 1 TABLET VIA PEG TUBE DAILY IN THE MORNING Active Ondansetron 4 MG Oral Tablet Disintegrating (Zofran) Place 1 Tablet on tongue every 8 hours as needed for Nausea. dissolve on tongue. 30 Tablet 3 025 Active traZODone HCl 50 MG Oral Tablet (Desyrel)Indicati ons:Insomnia, unspecified type Take 1 Tablet by mouth at bedtime. 30 Tablet 5 025 Active Prochlorperazine 25 MG Rectal Suppository [...] DAY NEEDED FOR ANXIETY 30 Tablet 025 2024 Disconti nued(Ref ill) Hospital, Clinic, or Other Facility Administered Medication Ordered Dose Route Frequency Start Date End Date Status vitamin b-12 (Cyanocobalamin) inj 1,000 mcgIndications:Postgastric surgery syndrome 1000 mcg IM [id number] 10/16/2022 07/20/2025 Active documented as of this [...] (03/04/2015): Updated 03/04/2015 MD Neli Briceño III's [place] Calculus of gallbladder with out mention of cholecystitis or obstruction 11/16/2020 documented as of this encounter (statuses as of 08/28/2024) Immunizations Name Administration Dates Next Due COVID-19 mRNA, LNP-s, No Pre serve, 2-Dose Series (wedgies) 07/25/2021,11/24/2020,11/03/2020 Seasonal Influenza Vac., MDV , IM, [...] 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 Authorizing Provider: TERRI OWENS * Telephone Encounter - Shaylee Stacy OSA - 08/26/2024 12:30 PM EST Aleah streeter asking for a update on medication. Please call when sent. * Telephone Encounter - Payam Crowder RPh - 08/26/2024 9:47 AM ESTPending Prescriptions: Disp Refills clonazePAM 1 MG Oral Tablet (KlonoPIN) 30 Tab*0 Sig: Take 1 Tablet by mouth in the morning. * Telephone Encounter - Payam Crowder RP - 08/26/2024 9:46 AM EST I have reviewed the patient’s controlled substance dispensing history in the Prescription Drug Monitoring Program in compliance with the [facility] regulations before prescribing a controlled substance. PDMP checked on 08/26/2024. Pending Prescriptions: Disp Refills clonazePAM 1 MG Oral Tablet (KlonoPIN) 30 Tab*0 Sig: Take 1 Tablet by mouth in the morning. Last Visit: 07/27/2024 (in office), 05/25/2024 (telemedicine) Next Visit: Visit date not found Date medication was last filled: 07/25/2024 Date medication is due for refill: 08/23/2024 Pharmacy: [id number] Is this request for a controlled [...] in Results Review. Please approve if appropriate. Thanks, Payam Crowder Pharm.D. Clinical Pharmacist [facility] ([facility]) [phone] 08/26/2024, 9:46 AM * Telephone Encounter - Inez Garrison PHARM Tech - 08/26/2024 9:03 AM EST Pt requesting high priority. She will be out of medication today. Did you pend patient's preferred pharmacy and medication before forwarding?yes Pharmacy: [id number] [facility] Pending Prescriptions: Disp Refills clonazePAM 1 MG Oral Tablet (KlonoPIN) 30 Tab*0 Sig: Take 1 Tablet by mouth in the morning. Last Visit: 07/27/2024 (in office), 05/25/2024 (telemedicine) Next Visit: Visit date not found If no future appointments scheduled, and last appointment is greater than a year ago, please schedule patient for a follow-up appointment Last date the medication was ordered: 07/25/2024 Is this request for a controlled substance?Yes, What was the last refill date 07/25/2024 w/ quantity 30 and dosage 1 MG and Urine Drug Screen Not completed Urine [...] found in Results Review. Patient Phone Numbers [employer] [phone] Labs: Lab Results Component Value Date/Time CREAT [...] AM EDT Telemedicine Nutrition & Weight Management, [place] [address] [place] [address] Addie Ramirez RDN [address] [place] [address] 09/11/2024 12:40 PM EDT Telemedicine Nutrition & Weight Management, [place] [address] [place] [address] Addie Ramirez RDN [address] [place] [address] 09/30/2024 11:00 AM EDT [facility] [address] [place] [address] Kathia Martinez MD [facility] [place] [address] 10/28/2024 2:30 PM EDT Office Visit Gastroenterology, [facility] [address] [place] [address] Shashank Wells CRNP [address] [facility] [place] [address] Scheduled Procedures Name Priority Associated Diagnoses Date/Ti [...] the patient have Health Care Power of Carton Forming Machine Operator? Yes, not currently available * Full [...] Power of Attor carlos? No Care Teams Plate Worker Relationship Specialty Start Date End Date Terri Owens PA-C [address] [place] [address] PCP - General Physician Bill Board Poster 01/11/24 documented as of this encounter
--- OUTSIDE RECORDS SUMMARY | 2024-11-05 04:03 | External Medical Summary | Summary of Care ---
Author Name Unknown Organization [facility] Address [address] [place] [address] Phone [phone] Care Team Providers Care Special Procedures Nurse Name Role Phone Bebeed Terri Ventura PA-C Primary Care Provider Reason for Visit * Reason Comments NEW PATIENT Malnutrition Nausea * Evaluate & Treat - Unlimited Visits (Within 30 days (routine)) - Pending Review Specialty Diagnoses / Procedures Referred By Contact Referred To Contact GI NUTRITION/IM / Gastroenterology Diagnoses Protein-calorie malnutrition, unspecified severity (HCC) Shashank Wells CRNP [address] [facility] [address] Phone: tel:[phone] fax:[phone] Referral ID Status Reason Start Date Expiration Date Visits Requested Visits Authorized [id number] Pending Review Specialty Services Required 08/04/[phone] Encounter Details Date Type Department Care Team (Latest Contact Info) Description 08/13/2024 1:40 PM EST Office Visit Nutrition & Weight Management, [facility] [address] [address] Emily Og MD [address] [place] [address] Severe protein-energy malnutrition (HCC)*; Attention to G-tube (HCC); Intestinal postoperative nonabsorption; History of Hollie-en-Y gastric bypass; History of CVA (cerebrovascular accident); Depression, unspecified depression type Allergies No known active allergiesdocumented as of this encounter (statuses as of 08/14/2024) Medications Triamcinolone Acetonide 0.1 % External Ointment [...] deficiency anemia,Intestinal postoperative nonabsorption,S/P gastric bypass Per [facility] IV iron anaphylaxis protocol. TO BE ADMINISTERED [...] per infusion reaction protocol 2 mL 11 Active Ferrous Sulfate 325 (65 Fe) MG [...] hours as needed for Nausea. 20 Tablet Active Sertraline HCl 100 MG Oral Tablet [...] directed through feeding tube via feeding pump. [id number] mL 11:59 PM EST 024 2024 Active [...] 3 days. 10 Patch 12 025 Active Pantoprazole Sodium 40 MG Oral Tablet Delayed Release (Protonix) Take 1 Tablet by mouth as needed. 024 2024 Disconti nued(Med ication/ Dose Changed) Hospital, Clinic, or Other Facility Administered Medication Ordered Dose Route Frequency Start Date End Date Status vitamin b-12 (Cyanocobalamin) inj 1,000 mcgIndications:Postgastric surgery syndrome 1000 mcg IM [id number] 10/16/2022 07/20/2025 Active documented as of this encounter (statuses as of 08/14/2024) Active Problems Problem Noted Date Diagnosed Date [...] as of this encounter (statuses as of 08/14/2024) Resolved Problems Problem Noted Date Diagnosed Date Resolved Date Intracranial hemorrhage 11/19/202307/02 Chronic obstructive pulmonary disease 11/15/2021 11/15/2021 Pre-operative examination 11/16/2020 Morbid obesity due to excess calories 10/27/2020 12/18/2021 MEDICATION USE AGREEMENT 05/14/2012 Overview (03/04/2015): Updated 03/04/2015 MD Neli Briceño III's [place] Calculus of gallbladder with out mention of cholecystitis or obstruction 11/16/2020 documented as of this encounter (statuses as of 08/14/2024) Immunizations Name Administration Dates Next Due COVID-19 mRNA, LNP-s, No Pre serve, 2-Dose Series (PaxVax) 07/25/2021,11/24/2020,11/03/2020 Seasonal Influenza Vac., MDV , IM, [...] 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 Not on file Not on file documented as of this encounter Last Filed Vital Signs Vital Sign Reading Time Taken Comments Blood Pressure 88/60 08/13/2024 2:03 PM EST Pulse 64 08/13/2024 2:03 PM EST Temperature 36.7 °C (98.1 °F) 08/13/2024 2:03 PM ES T Respiratory Rate - - Oxygen Saturation - - Inhaled Oxygen Concentration - - Weight 50.8 kg (112 lb) 08/13/2024 2:03 PM EST Height 160 cm (5' 3") 08/13/2024 2:03 PM EST Body Mass Index 19.84 08/13/2024 2:03 PM EST documented in this [...] documented in this encounter Progress Notes * Emily Og MD - 08/13/2024 3:00 PM EST NUTRITION AND WEIGHT MANAGEMENT Aleah Marie presents to Nutrition and Weight Management clinic today for follow-up. The patient has an 18 [address] gastro[address] tube in place. The current tube was placed in the ED in 03/2024. The patient presents today for a routine tube change. Tube site is clean and dry without erythema, edema, or drainage. Provided education to patient and or caregiver regarding the procedure to be performed. A timeout was called immediately prior to the procedure to confirm the correct patient, procedure matches verbalized consent, and correct site. Confirmed that appropriate replacement tube is available. Balloon inflated prior to insertion to assess integrity of the tube. The current 18 Jamaican gastrostomy tube was removed without difficulty. A new 18 nigerian 3.5 gastrostomy tube was inserted via protocol. The balloon was inflated with 6 cc of water. Lot # [id number] Gastric contents were aspirated. Dry sterile dressing applied. Patient tolerated procedure well. BP 88/60 | Pulse 64 | Temp 36.7 °C (98.1 °F) | Ht 1.6 m (5' 3") | Wt 50.8 kg (112 lb) | LMP 05/05/2014 | BMI 19.84 kg/m² | BSA 1.5 m² Assessment and Plan: --> Return to clinic in 3 months for routine tube change. Emily Og MD * Emily Og MD - 08/13/2024 1:51 PM EST MALNUTRITION RETURN Aleah Marie is a 54 year old female with a past medical history for Patient Active Problem List Diagnosis Major depressive [...] bypass Unintentional weight loss Attention to G-tube ([facility]) Hyperkalemia S/P gastrostomy tube (G tube) placement, follow-up exam Nausea Vomiting associated with bulimia nervosa with nausea Recurrent major depressive disorder (HCC) History of stroke who presents for [facility]. 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 Now s/p remnant PEG (11/06/23). Presents for nutrition support evaluation. 08/13/2024 - 112 lbs On tube feeds and following with Addie Ramirez Last tube change was in 03/2024 in the ED Here for tube change today Vits: womens once a day most days, none others due to nausea Nausea is intermittent and episodic, started after 1st tube change in the ED in 03/202401/24/24 - Has been consistently doing 4 cartons nightly. - Reports feeling full, but otherwise has been tolerating. - Tries to take calcium and multivitamin BID, but often only once. 12/25/23 - Switched from 3 to 4 cartons at last visit on 12/17/23. - Energy is low, but seems to be increasing with added carton. - Reports ongoing symptoms of depression since stroke. Feels that times passes more slowly, gets tired easily. Takes Zoloft daily. Interested in working with counselor or psychologist. 12/17/23 Admitted 11/05-11/10 for tube placement. Went to [...] the past month and received iron infusions. Wt Readings from Last 6 Encounters: 08/13/24 50.8 kg (112 lb) 08/04/24 51.7 kg (114 lb) 07/27/24 53.3 kg (117 lb 6.4 oz) 06/11/24 51.8 kg (114 lb 4.8 oz) 04/14/24 49 kg (108 lb) 03/13/24 48.5 kg (107 lb) Past Medical History: Diagnosis Date Anxiety Backache [...] performed by Gibran Parnell MD at ENDOSCOPY [facility] COLONOSCOPY, DIAGNOSTIC (RECTUM) 08/31/2020 normal bx, repeat 10 yrs / COLONOSCOPY FLEXIBLE PROXIMAL DIAGNOSTIC performed by Rosa Driver MD at ENDOSCOPY [facility] CYSTOSCOPY/INSERTION OF STENT 07/10/2011 CYSTOURETHROSCOPY WITH INSERTION URETERAL STENT performed by JAYASHREE WHARTON at [facility] DENTAL SURGERY PROCEDURE NEC wisdom teeth EGD, FLEXIBLE, DIAGNOSTIC N/A 11/21/2020 ESOPHAGOGASTRODUODENOSCOPY (EGD), FLEXIBLE, TRANSORAL, DIAGNOSTIC performed by Alonso Parmar MD at [facility] EGD, FLEXIBLE, DIAGNOSTIC N/A 11/30/2020 ESOPHAGOGASTRODUODENOSCOPY (EGD), FLEXIBLE, TRANSORAL, DIAGNOSTIC performed by Alonso Parmar MD at OR [facility] EGD, FLEXIBLE, DIAGNOSTIC N/A 09/11/2023 hollie-en-Y gastrojejunostomy with gastrojejunal anastomosis/biopsies show intestinal metaplasia/repeat 1-2 years/EGD/[place] EGD, FLEXIBLE, DIAGNOSTIC N/A 11/06/2023 ESOPHAGOGASTRODUODENOSCOPY (EGD), FLEXIBLE, TRANSORAL, DIAGNOSTIC performed by Anoop Chino MD at OR [facility] CLOUD SOFTWARE ENGINEER PAP SCREEN 04/23/2011 negative for malignancy IR TUBE REPLACEMENT GASTROSTOMY PERCUTANEOUS OR CECOSTOMY Left 02/12/2024 PERCUTANEOUS REPLACE GASTROSTOMY OR CECOSTOMY TUBE WITH FLUORO performed by Robin Caldera MD at OR [facility] LAP SURGICAL, GASTROSTOMY N/A 11/06/2023 LAPAROSCOPIC GASTROSTOMY WITHOUT RECONSTRUCION GASTRIC TUBE performed by Anoop Chino MD at [facility] LAPAROSCOPIC GASTRIC BYPASS/HOLLIE-EN-Y N/A 11/30/2020 LAPAROSCOPIC GASTRIC RESTRICTIVE BYPASS HOLLIE EN Y performed by Alonso Parmar MD at OR [facility] LAPAROSCOPY;APPENDECTOMY 12/09/2001 LUMBAR / SACRAL EPIDURAL, ADD'L LEVEL had pain numbess LUMBAR / SACRAL EPIDURAL, SINGLE LEVEL 08/10/2015 INJECTION TRANSFORAMINAL EPIDURAL LUMBAR OR SACRAL performed by Greg Burdick DO at OR [facility] PAP SCREEN 10/10/2007 DANNIE/Yarelis Tai PAP SCREEN 11/17/2009 negative for mailgnancy PAP SCREEN 05/20/2012 negative/normal PARTIAL REMOVAL OF COLON 03/31/2012 diveerticulitis REMOVE GALLBLADDER 07/21/2007 lap ariana with intraoperative cholangiogram SACROILIAC JOINT INJECT W/GUIDANCE 05/18/2015 INJECTION SACROILIAC JOINT performed by Greg Burdick, at OR [facility] SMALL BOWEL ENDOSCOPY W/BX 03/07/2011 normal acid reflux Family History Problem Relation Name Age of Onset Endocrine Disorder Mother high choleterol Hypertension Father Coronary Artery disease Father Stroke Grandmother (Maternal) Heart Disorder Grandfather (Maternal) ND Cancer Grandfather (Paternal) Prostate Other (completed suicide) Aunt (Paternal) Breast Cancer No significant family history Review of patient's allergies indicates: No Known Allergies Current Outpatient Medications Medication Sig Dispense Refill Adapalene 0.1 % External Gel Apply topically [...] FOR DEPRESSION AND ANXIETY 180 Tablet 1 clonazePAM 1 MG Oral Tablet (KlonoPIN) TAKE 1 TABLET BY MOUTH EVERY DAY NEEDED FOR ANXIETY 30 Tablet 0 Ondansetron 4 MG Oral Tablet Disintegrating (Zofran) Place 1 Tablet on tongue every 8 hours as needed for Nausea. dissolve on tongue. 30 Tablet 3 traZODone HCl 50 MG Oral Tablet (Desyrel) Take 1 Tablet by mouth at bedtime. 30 Tablet 5 Prochlorperazine 25 MG Rectal Suppository (Compazine) Insert into the rectum for severe Nausea/vomiting/dry heaves, repeat in 12 hours if needed. Max 2 per episode of N/V 12 Suppository 1 Scopolamine 1 MG/3DAYS Transdermal Patch 72 Hour (Transderm Scop) Place 1 Patch over 72 hours topically on the skin every 3 days. 10 Patch 12 Triamcinolone Acetonide 0.1 % External Ointment (Aristocort) Apply 2x daily (or more if itchy instead of scratching) to rash/lesions all over body until resolved 454 g 0 Magnesium 400 MG Oral Tablet 2 tabs daily (Patient not taking: Reported on 08/04/2024) Zinc 50 MG Oral Tablet Take 1 Tablet by mouth in the morning. (Patient not taking: Reported on 08/13/2024) Sodium Chloride 0.9 % Intravenous Solution Per [facility] IV iron anaphylaxis protocol. TO BE ADMINISTERED IN THE EVENT OF ANAPHYLACTIC REACTION (Patient not taking: Reported on 10/31/2023) 1000 mL 11 dexAMETHasone Sodium Phosphate 4 MG/ML Injection Solution (Decadron) Inject 8 mg intravenously as needed for Anaphylaxis (severe allergic reaction). Per [facility] IV iron anaphylaxis protocol (Patient nottaking: Reported on 08/13/2024) 2 mL 11 EPINEPHrine (Anaphylaxis) 1 MG/ML [...] further management. (Patient not taking: Reported on 08/13/2024) 30 Tablet 1 Calcium Citrate-Vitamin D 315-5 MG-MCG Oral Tablet Take 2 Tablets by mouth in the morning and 2 Tablets before bedtime. Follow up with GI nutrition for further management.. (Patient not taking: Reported on 08/13/2024) 120 Tablet 1 B-Complex/Vitamin C Oral Tablet (Therapeutic B Complex W/C) Take 1 Tablet by mouth in the morning. Follow up with GI nutrition for further management.. (Patient not taking: Reported on 08/13/2024) 30 Tablet 1 Ascorbic Acid 250 MG Oral Tablet Take 1 Tablet by mouth daily at noon. Follow up with GI nutrition for further management. (Patient not taking: Reported on 08/13/2024) 30 Tablet 1 Vitamin D3 25 MCG (1000 UT) Oral Tablet (Vitamin D3) Take 1 Tablet by mouth in the morning. Follow up with GI nutrition for further management.. (Patient not taking: Reported on 08/13/2024) 30 Tablet 1 Nutren 2.0 Oral Liquid Pump - Administer four containers at 105 mL/hr daily as tolerated, as directed through feeding tube via feeding pump. 575655 mL 0 Lansoprazole 30 MG Oral Tablet Delayed Release Disintegrating (Prevacid SoluTab) GIVE 1 TABLET VIA PEG TUBE DAILY IN THE MORNING (Patient not taking: Reported on 08/13/2024) Current Facility-Administered Medications Medication Dose Route Frequency Provider Last Rate Last Admin vitamin b-12 (Cyanocobalamin) inj 1,000 mcg 1,000 mcg Intramuscular Q12 Weeks Terri Owens PA-C 1,000 mcg at 10/16/22 1057 Current TPN order: N/A Cycled: N/A Current EN formula/hours: Continue to 4 cartons Nutren 1.5 at goal rate of 100 mL/hr as tolerated (1000 mL formula, 1500 Kcals, 68 gm protein, 764 mL free water) -Additional ~600 mL water needed to maintain hydration Review of Systems Gastrointestinal: Positive for diarrhea. Negative for abdominal pain, constipation, nausea and vomiting. Diarrhea once weekly; manageable. Psychiatric/Behavioral: Positive for dysphoric mood. Negative for self-injury and suicidal ideas. Current Diet: Describes typical diet history/24 hour recall: About 200 calories per day Maybe 1 chicken wing EXERCISE HISTORY: Type of Activity: ADL PHYSICAL EXAMINATION: PN Access: No EN Access: Yes: G-tube Filed Vitals: 08/13/24 1403 BP: 88/60 Pulse: 64 Temp: 36.7 °C (98.1 °F) Weight: 50.8 kg (112 lb) Height: 1.6 m (5' 3") PHYSICAL EXAMINATION: General: Well-developed, non-dysmorphic. No acute distress. +temporal wasting HEENT: Normocephalic/atraumatic. Lungs: Normal WOB. No conversational dyspnea. Neuro: Alert and oriented to person, place, and time. Speech normal pitch and speed. Psych: Normal mood and affect. Judgement normal. ASSESSMENT AND PLAN: On tube feeding diet History of Hemorrhagic stroke Severe protein-energy malnutrition Unintentional weight loss - Continue current tube feeding regimen per dietitian - Continue multivitamin for now, patient unable to tolerate other vitamins due to nausea currently - Reminded patient to have labs drawn - still active from 11/2023 - We will make changes to vitamin regimens based on lab results - if additional vitamins need to beadded to regimen, likely will have to be put through tube S/P gastric bypass Postoperative malabsorption - Reminded patient to have labs drawn. Depression - Psych appts coming up Time spent: 50 minutes were spent in the care of this patient. Emily Og MD [facility] for Nutrition and Weight Management documented in this encounter Nursing Notes * Caridad Hyde RN - 08/13/2024 2:02 PM EST Chief Complaint Patient presents with NEW PATIENT Malnutrition Nausea Pt wants advice on what vitamins and diet for post bariatric surgery. documented in this encounter Plan of Treatment Upcoming Encounters Date Type Department Care Team (Late st Contact Info) Description 08/26/2024 11:00 AM EST Office Visit Nutrition & Weight Management, [facility] [address] [facility] [place] [address] Shasha Adam PA-C [facility] [place] [address] 09/11/2024 8:20 AM EDT [facility] [address] [place] [address] Addie Ramirez RDN [address] [place] [address] 09/11/2024 12:40 PM EDT [facility] [address] [place] [address] Addie Ramirez, BARBARA [address] [place] [address] 09/30/2024 11:00 AM EDT [facility] [address] [place] [address] Kathia Martinez MD [address] [place] [address] 10/28/2024 2:30 PM EDT Office Visit Gastroenterology, [facility] [address] [place] [place] [address] Shashank Wells CRNP [address] [place] [address] 11/16/2024 9:00 AM EDT [facility] [address] [facility] [place] [address] Robinson Caro CRNP [address] [place] [address] Scheduled Procedures Name Priority Associated Diagnoses Date/Ti me ESOPHAGOGASTRODUODENOSCOPY ( EGD), FLEXIBLE, TRANSORAL, DIAGNOSTIC Recall Intestinal metaplasia of stomach COLONOSCOPY FLEXIBLE PROXIMAL DIAGNOSTIC Recall Screen for colon cancer Scheduled Referrals Name Type Priority Associated Diagnoses Orde r Schedule GI NUTRITION REFERRAL OP Referral Within 30 [...] malnutrition (HCC)- Primary Other severe protein-calorie malnutrition Attention to G-tube (HCC) Attention to gastrostomy Intestinal postoperative nonabsorption Other and unspecified postsurgical nonabsorption History of Hollie-en-Y gastric bypass Bariatric surgery status History of CVA (cerebrovascular accident) Transient ischemic attack (TIA), and cerebral infarction without residual deficits Depression, unspecified depression type documented in this encounter Advance Directives [...] the patient have Health Care Power of Rail Gang Supervisor? Yes, not currently available * Full Code [...] Power of Attor carlos? No Care Teams Special Procedures Nurse Relationship Specialty Start Date End Date Graciela September ANDREA Ventura [address] [place] [address] PCP - General Physician Cell Tender 01/11/24 documented as of this encounter
--- OUTSIDE RECORDS SUMMARY | 2024-11-05 04:03 | External Medical Summary | Summary of Care ---
Author Name Unknown Organization [facility] Address [address] [place] [address] Phone [phone] Care Team Providers Care Assistant Director Of Admissions Name Role Phone Terri Owens PA-C Primary Care Provider [phone] Encounter Details Date Type Department Care Team (Late st Contact Info) Description 05/19/2024 Telephone Family Practice [facility] [address] [facility] [address] Terri Owens PA-C [address] [place] [address] Allergies No known active allergiesdocumented as of this encounter (statuses as of 08/19/2024) Medications Triamcinolone Acetonide 0.1 % External Ointment [...] deficiency anemia,Intestinal postoperative nonabsorption,S/P gastric bypass Per [facility] IV iron anaphylaxis protocol. TO BE ADMINISTERED IN THE EVENT OF ANAPHYLACTIC REACTION 1000 mL 10/25/19 Active Additional Information Patient not taking.Informant: Patient, Reported on 11/06/2023 dexAMETHasone Sodium Phosphate 4 MG/ML Injection Solution (Decadron)Indicat ions:Other iron deficiency anemia,Intestinal postoperative nonabsorption,S/P gastric bypass Inject 8 mg intravenously as needed for Anaphylaxis (severe allergic reaction). Per [facility] IV iron anaphylaxis protocol [...] as needed for Nausea. 20 Tablet 11/14/19 Active Hospital, Clinic, or Other Facility Administered Medication Ordered Dose Route Frequency Start Date End Date Status vitamin b-12 (Cyanocobalamin) inj 1,000 mcgIndications:Postgastric surgery syndrome 1000 mcg IM [id number] 10/16/2022 07/20/2025 Active documented as of this encounter (statuses as of 08/19/2024) Active Problems Problem Noted Date Diagnosed Date [...] as of this encounter (statuses as of 08/19/2024) Resolved Problems Problem Noted Date Diagnosed Date Resolved Date Intracranial hemorrhage 11/19/202307/02 Chronic obstructive pulmonary disease 11/15/2021 11/15/2021 Pre-operative examination 11/16/2020 Morbid obesity due to excess calories 10/27/2020 12/18/2021 MEDICATION USE AGREEMENT 05/14/2012 Overview (03/04/2015): Updated 03/04/2015 MD Neli Briceño III's [place] Calculus of gallbladder with out mention of cholecystitis or obstruction 11/16/2020 documented as of this encounter (statuses as of 08/19/2024) Immunizations Name Administration Dates Next Due COVID-19 mRNA, LNP-s, No Pre serve, 2-Dose Series (its learning) 07/25/2021,11/24/2020,11/03/2020 Seasonal Influenza Vac., MDV , IM, [...] 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 Not [...] Giancarlo Beltran RN documented in this encounter Plan of Treatment Upcoming Encounters Date Type Department Care Team (Late st Contact Info) Description 08/26/2024 11:00 AM EST Office Visit Nutrition & Weight Management, [facility] [address] [place] [address] Shasha Adam PA-C [address] [place] [address] 09/11/2024 8:20 AM EDT Telemedicine Nutrition & Weight Management, [place] [address] [place] [address] Addie Ramirez, RDN [address] [place] [address] 09/11/2024 12:40 PM EDT Telemedicine Nutrition & Weight Management, [place] [address] [place] [address] Addie Ramirez, RDN [address] [place] [address] 09/30/2024 11:00 AM EDT Telemedicine Psychiatry, [facility] [address] [place] [address] Kathia Martinez MD [address] [place] [address] 10/28/2024 2:30 PM EDT Office Visit Gastroenterology, [facility] [address] [place] [address] Shahsank Wells CRNP [address] [place] [address] 11/16/2024 9:00 AM EDT Telemedicine Psychiatry, [facility] [address] [place] [address] Robinson Caro CRNP [address] [place] [address] Scheduled Procedures Name Priority Associated Diagnoses Date/Ti [...] Cancer Screening 12/26/2019 Pap Smear 12/26/2019 12/25/2016, 0308/2015, 05/20/2012 (Done elsewhere), Additional history exists Pneumococcal Vaccine: 50+ Years (1 of 1 - PCV) 2020 Zoster Vaccines (1 of 2) 2020 Depression Monitoring 05/09/2021 05/09/2020 COVID-19 Vaccine ( - season) 2024 07/25/2021, 11/24/2020, 11/03/2020 Influenza Vaccine (FLU shot) (#1) 2024 06/17/2023, 04/24/2022, 04/20/2020, Additional history exists HbA1c 10/21/2024 10/22/2023, 08/2020, 06/30/2013 Mammogram 08/12/2025 08/12/2024, 08/2022, 08/14/2018, Additional history [...] the patient have Health Care Power of Psychology Lecturer? Yes, not currently available * Full Code [...] Power of Attor carlos? No Care Teams Assistant Director Of Admissions Relationship Specialty Start Date End Date Terri Owens PA-C [address] [place] [address] PCP - General Physician Glass Blower Helper 01/11/24 documented as of this encounter
--- OUTSIDE RECORDS SUMMARY | 2024-11-05 04:03 | External Medical Summary | Summary of Care ---
Author Name Unknown Organization [facility] Address [address] [place] [address] Phone [phone] Care Team Providers Care General Assembler Installer Name Role Phone Terri Owens PA-C Primary Care Provider [phone] Encounter Details Date Type Department Care Team (Late st Contact Info) Description 08/17/2024 Orders Only Family Practice [facility] [address] [facility] [place] [address] Terri Owens PA-C [address] [place] [address] Allergies No known active allergiesdocumented as of this encounter (statuses as of 08/21/2024) Medications Triamcinolone Acetonide 0.1 % External Ointment [...] deficiency anemia,Intestinal postoperative nonabsorption,S/P gastric bypass Per [facility] IV iron anaphylaxis protocol. TO BE ADMINISTERED IN THE EVENT OF ANAPHYLACTIC REACTION 1000 mL 10/25/19 Active Additional Information Patient not taking.Informant: Patient, Reported on 11/06/2023 dexAMETHasone Sodium Phosphate 4 MG/ML Injection Solution (Decadron)Indicat ions:Other iron deficiency anemia,Intestinal postoperative nonabsorption,S/P gastric bypass Inject 8 mg intravenously as needed for Anaphylaxis (severe allergic reaction). Per [facility] IV iron anaphylaxis protocol 2 [...] directed through feeding tube via feeding pump. [id number] mL 5 11:59 PM EST 04/15/20 24 2024 Active clonazePAM 1 MG Oral Tablet (KlonoPIN)Indicat ions:PTSD (post-traumatic stress disorder),Major depressive disorder, remission status unspecified, unspecified whether recurrent,Anxiety TAKE 1 TABLET BY MOUTH EVERY DAY NEEDED FOR ANXIETY 30 Tablet 07/25/19 25 Active Lansoprazole 30 MG Oral Tablet Delayed [...] 1,000 mcgIndications:Postgastric surgery syndrome 1000 mcg IM [id number] 10/16/2022 07/20/2025 Active documented as of this encounter (statuses as of 08/21/2024) Active Problems Problem Noted Date Diagnosed Date [...] as of this encounter (statuses as of 08/21/2024) Resolved Problems Problem Noted Date Diagnosed Date Resolved Date Intracranial hemorrhage 11/19/202307/02 Chronic obstructive pulmonary disease 11/15/2021 11/15/2021 Pre-operative examination 11/16/2020 Morbid obesity due to excess calories 10/27/2020 12/18/2021 MEDICATION USE AGREEMENT 05/14/2012 Overview (03/04/2015): Updated 03/04/2015 MD Neli Briceño III's [place] Calculus of gallbladder with out mention of cholecystitis or obstruction 11/16/2020 documented as of this encounter (statuses as of 08/21/2024) Immunizations Name Administration Dates Next Due COVID-19 mRNA, LNP-s, No Pre serve, 2-Dose Series ([employer]) 07/25/2021,11/24/2020,11/03/2020 Seasonal Influenza Vac., MDV , IM, [...] 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 documented in this encounter Plan of Treatment Upcoming Encounters Date Type Department Care Team (Late st Contact Info) Description 08/26/2024 11:00 AM EST Office Visit Nutrition & Weight Management, [facility] [address] [facility] [place] [address] Shasha Adam PA-C [address] [place] [address] 09/11/2024 8:20 AM EDT Telemedicine Nutrition & Weight Management, [place] [address] [place] [address] Addie Ramirez RDN [address] [place] [address] 09/11/2024 12:40 PM EDT Telemedicine Nutrition & Weight Management, [place] [address] [place] [address] Addie Ramirez RDN [address] [place] [address] 09/30/2024 11:00 AM EDT Telemedicine Psychiatry, [facility] [address] [facility] [place] [address] Kathia Martniez MD [address] [place] [address] 10/28/2024 2:30 PM EDT Office Visit Gastroenterology, [facility] [address] [place] [address] Shashank Wells CRNP [address] [place] [address] 11/16/2024 9:00 AM EDT Telemedicine Psychiatry, [facility] [address] [place] [address] Robinson Caro CRNP [address] [place] [address] Scheduled Procedures Name Priority Associated Diagnoses Date/Ti [...] 10/22/2023, 110 08/2020, 06/30/2013 Mammogram 08/12/2025 08/12/2024, 08/2022, 08/14/2018, [...] Not on filedocumented as of this encounter Procedures Procedure Name Priority Date/Time Associated Diagnosis Comments CHEMISTRY-OUTSIDE Routine 08/13/2024 documented in this encounter Results * CHEMISTRY-OUTSIDE (08/13/2024) Not all results display below - see scan for full detail OUTSIDE LAB (SEE SCANNED REPORT) Comment:SCAN INCL: CMP, CBCD CREATININE 0.68 0.50 - 1.03 MG/DL OUTSIDE LAB (SEE SCANNED REPORT) EGFR 103 OUTSIDE LA B (SEE SCANNED REPORT) POTASSIUM 4.2 3.5 - 5.3 MMOL/L OUTSIDE LAB (SEE SCANNED REPORT) GLUCOSE 106 65 - 139 MG/DL OUTSIDE LAB (SEE SCANNED REPORT) HOURS FASTING OUTSID E LAB (SEE SCANNED REPORT) TRIGLYCERIDES-OUT SIDE LAB OUTSIDE LAB (SEE SCANNED REPORT) CHOLESTEROL-OUTSI DE LAB OUTSIDE LAB (SEE SCANNED REPORT) HDL-OUTSIDE LAB OUTS [place]UC[place]NA LAB (SEE SCANNED REPORT) CHOL/HDL RATIO-OUTSIDE LAB OUTSIDE LA B (SEE SCANNED REPORT) LDL (CALCULATED)-OUTS [place]UC[place]NA LAB OUTSIDE LAB (SEE SCANNED REPORT) LDL (DIRECT MEASURE)-OUTSIDE LAB OUTSIDE LAB (SEE SCANNED REPORT) HEMOGLOBIN, [id number] LAB OUTSIDE LAB (SEE SCANNED REPORT) PHOSPHORUS-OUTSID E LAB OUTSIDE LAB (SEE SCANNED REPORT) PTH-OUTSIDE LAB OUTS [place]UCIANA LAB (SEE SCANNED REPORT) MICROALBUMIN RATIO-OUTSIDE LAB OUTSIDE LA B (SEE SCANNED REPORT) PROTEIN, UA-OUTSIDE LAB OUTSIDE LAB (SEE SCANNED REPORT) HGB 13.6 11.7 - 15.5 G/DL OUTSIDE LAB (SEE SCANNED REPORT) 08/13/2024 September [facility] Final Result OUTSIDE LAB (SEE SCANNED REPORT) documented in this encounter Advance Directives * [...] the patient have Health Care Power of Corporate Driver? Yes, not currently available * Full [...] Power of Attor carlos? No Care Teams General Assembler Installer Relationship Specialty Start Date End Date Terri Owens PA-C [address] [place] [address] PCP - General Physician Superintendent Pressure 01/11/24 documented as of this encounter
--- OUTSIDE RECORDS SUMMARY | 2024-11-05 04:03 | External Medical Summary | Summary of Care ---
Author Name Unknown Organization [facility] Address [address] [place] [address] Phone [phone] Care Team Providers Care Frog Or Oyster Farmworker Name Role Phone Terri Owens PA-C Primary Care Provider Encounter Details Date Type Department Care Team (Late st Contact Info) Description 08/17/2024 Orders Only Family Practice [facility] [address] [facility] [place] [address] Terri Owens PA-C [address] [place] [address] Allergies No known active allergiesdocumented as of this encounter (statuses as of 08/17/2024) Medications Triamcinolone Acetonide 0.1 % External Ointment [...] deficiency anemia,Intestinal postoperative nonabsorption,S/P gastric bypass Per [facility] IV iron anaphylaxis protocol. TO BE ADMINISTERED IN THE EVENT OF ANAPHYLACTIC REACTION 1000 mL 10/25/19 Active Additional Information Patient not taking.Informant: Patient, Reported on 11/06/2023 dexAMETHasone Sodium Phosphate 4 MG/ML Injection Solution (Decadron)Indicat ions:Other iron deficiency anemia,Intestinal postoperative nonabsorption,S/P gastric bypass Inject 8 mg intravenously as needed for Anaphylaxis (severe allergic reaction). Per [facility] IV iron anaphylaxis protocol 2 mL [...] directed through feeding tube via feeding pump. [id number] mL 5 11:59 PM EST 04/15/20 24 [...] 1,000 mcgIndications:Postgastric surgery syndrome 1000 mcg IM [id number] 10/16/2022 07/20/2025 Active documented as of this encounter (statuses as of 08/17/2024) Active Problems Problem Noted Date Diagnosed Date [...] as of this encounter (statuses as of 08/17/2024) Resolved Problems Problem Noted Date Diagnosed Date Resolved Date Intracranial hemorrhage 11/19/202307/02 Chronic obstructive pulmonary disease 11/15/2021 11/15/2021 Pre-operative examination 11/16/2020 Morbid obesity due to excess calories 10/27/2020 12/18/2021 MEDICATION USE AGREEMENT 05/14/2012 Overview (03/04/2015): Updated 03/04/2015 MD Neli Briceño III's [place] Calculus of gallbladder with out mention of cholecystitis or obstruction 11/16/2020 documented as of this encounter (statuses as of 08/17/2024) Immunizations Name Administration Dates Next Due COVID-19 mRNA, LNP-s, No Pre serve, 2-Dose Series ([employer]) 07/25/2021,11/24/2020,11/03/2020 Seasonal Influenza Vac., MDV , IM, [...] 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 [...] Giancarlo Rubio RN documented in this encounter Plan of Treatment Upcoming Encounters Date Type Department Care Team (Late st Contact Info) Description 08/26/2024 11:00 AM EST Office Visit Nutrition & Weight Management, [facility] [address] [place] [address] Shasha Adam PA-C [address] [place] [address] 09/11/2024 8:20 AM EDT Telemedicine Nutrition & Weight Management, [place] [address] [place] [address] Addie Ramirez RDN [address] [place] [address] 09/11/2024 12:40 PM EDT Telemedicine Nutrition & Weight Management, [place] [address] [place] [address] Addie Ramirez RDN [address] [place] [address] 09/30/2024 11:00 AM EDT Telemedicine Psychiatry, [facility] [place] [address] Kathia Martinez MD [address] [place] [address] 10/28/2024 2:30 PM EDT Office Visit Gastroenterology, [facility] [address] [facility] [place] [address] Shashank Wells CRNP [address] [place] [address] 11/16/2024 9:00 AM EDT Telemedicine Psychiatry, [facility] [address] [place] [address] Robinson Caro CRNP [address] [place] [address] Scheduled Procedures Name Priority Associated Diagnoses Date/Ti [...] LAB OUTSIDE LAB (SEE SCANNED REPORT) HEMOGLOBIN, [id number] LAB OUTSIDE LAB (SEE SCANNED REPORT) PHOSPHORUS-OUTSID E LAB OUTSIDE LAB (SEE SCANNED REPORT) PTH-OUTSIDE LAB OUTS LUCIANA LAB (SEE SCANNED REPORT) MICROALBUMIN RATIO-OUTSIDE LAB OUTSIDE LA B (SEE SCANNED REPORT) PROTEIN, UA-OUTSIDE LAB OUTSIDE LAB (SEE SCANNED REPORT) HGB 13.6 11.7 - 15.5 G/DL OUTSIDE LAB (SEE SCANNED REPORT) 08/13/2024 us September [facility] Final Result OUTSIDE [...] the patient have Health Care Power of Fleet Driver? Yes, not currently available * Full [...] Power of Attor carlos? No Care Teams Frog Or Oyster Farmworker Relationship Specialty Start Date End Date Graciela Terri [place] [address] [place] [address] PCP - General Physician Top Tile Decorator 01/11/24 documented as of this encounter
--- OUTSIDE RECORDS SUMMARY | 2024-11-05 04:04 | External Medical Summary | Summary of Care ---
Author Name Unknown Organization [facility] Address [address] [place] [address] Phone [phone] Care Team Providers Care Inspector Plating Name Role Phone Graciela Terri [place] PA-C Primary Care Provider [phone] Encounter Details Date Type Department Care Team (Late st Contact Info) Description 07/30/2024 Orders Only PATIENT PORTAL DO NOT DELETE THIS DEPT USED BY [place] [id number] Allergies No known active allergiesdocumented as of this encounter (statuses as of 07/30/2024) Medications Triamcinolone Acetonide 0.1 % External Ointment (Aristocort)Indica tions:Prurigo Apply 2x daily (or more if itchy instead of scratching) to rash/lesions all over body until resolved 454 g 11/18/19 21 Active Adapalene 0.1 % External GelIndications:Acn e vulgaris Apply topically to affected area. As directed. 15 g 5 11/18/19 21 Active One-A-Day Womens Oral Tablet Take by mouth. Act jane Magnesium 400 MG Oral Tablet 2 tabs daily 05/14/20 23 Active Zinc 50 MG Oral Tablet Take 1 Tablet by mouth in the morning. 05/14/20 23 Active Pantoprazole Sodium 40 MG Oral Tablet Delayed Release (Protonix) Take 1 Tablet by mouth as needed. 09/13/19 24 Active Promethazine HCl 25 MG Oral Tablet (Phenergan) Take 1 Tablet by mouth every 6 hours as needed. 09/13/19 Active Acetaminophen 325 MG Oral Tablet (Tylenol)Indicatio ns:Other iron deficiency anemia,Intestinal postoperative nonabsorption,S/P gastric bypass Take 2 Tablets by mouth as needed (for mild to moderate reaction (infusion reaction protocol)). 10/25/19 Active Sodium Chloride 0.9 % Intravenous SolutionIndication s:Other iron deficiency anemia,Intestinal postoperative nonabsorption,S/P gastric bypass Per [facility] IV iron anaphylaxis protocol. TO BE ADMINISTERED IN THE EVENT OF ANAPHYLACTIC REACTION 1000 mL 10/25/19 Active Additional Information Patient not taking.Informant: Patient, Reported on 11/06/2023 dexAMETHasone Sodium Phosphate 4 MG/ML Injection Solution (Decadron)Indicati ons:Other iron deficiency anemia,Intestinal postoperative nonabsorption,S/P gastric bypass Inject 8 mg intravenously as needed for Anaphylaxis (severe allergic reaction). Per [facility] IV iron anaphylaxis protocol 2 mL 10/25/19 24 Active EPINEPHrine (Anaphylaxis) 1 MG/ML Injection SolutionIndication s:Other iron deficiency anemia,Intestinal postoperative nonabsorption,S/P gastric bypass Inject 0.3 mL into a large muscle as needed for Anaphylaxis (severe allergic reaction). Per [facility] IV iron anaphylaxis protocol. May repeat every 15 min as needed per infusion reaction protocol 2 mL 10/25/19 24 Active Ferrous Sulfate 325 (65 Fe) MG Oral Tablet (Feosol) Take 1 Tablet by mouth daily at noon. Follow up with GI nutrition for further management. 30 Tablet 11/11/19 24 Active Calcium Citrate-Vitamin D 315-5 MG-MCG Oral Tablet Take 2 Tablets by mouth in the morning and 2 Tablets before bedtime. Follow up with GI nutrition for further management.. 120 Tablet 11/11/19 24 Active B-Complex/Vitamin C Oral Tablet (Therapeutic B Complex W/C) Take 1 Tablet by mouth in the morning. Follow up with GI nutrition for further management.. 30 Tablet 11/12/19 24 Active Ascorbic Acid 250 MG Oral Tablet Take 1 Tablet by mouth daily at noon. Follow up with GI nutrition for further management. 30 Tablet 11/11/19 24 Active Vitamin D3 25 MCG (1000 UT) Oral Tablet (Vitamin D3) Take 1 Tablet by mouth in the morning. Follow up with GI nutrition for further management.. 30 Tablet 11/12/19 24 Active Scopolamine 1 MG/3DAYS Transdermal Patch 72 Hour (Transderm Scop) Place 1 Patch over 72 hours topically on the skin every 3 days. 10 Patch 12 11/14/19 24 Active Prochlorperazine Maleate 5 MG Oral Tablet (Compazine) Take 1 Tablet by mouth every 6 hours as needed for Nausea. 20 Tablet 11/14/19 24 Active Sertraline HCl 100 MG Oral Tablet (Zoloft) TAKE 2 TABLETS BY MOUTH EVERY DAY FOR DEPRESSION AND ANXIETY 180 Tablet 1 06/22/20 24 Active Nutren 2.0 Oral LiquidIndications: Gastroesophageal reflux disease without esophagitis,Dehydr ation,Severe protein-energy malnutrition (HCC),Diarrhea, unspecified type,Nausea and vomiting, unspecified vomiting type,Unintentional weight loss Pump - Administer four containers at 105 mL/hr daily as tolerated, as directed through feeding tube via feeding pump. [id number] mL 5 11:59 PM EST 04/15/20 24 025 Active clonazePAM 1 MG Oral Tablet (KlonoPIN)Indicati ons:PTSD (post-traumatic stress disorder),Major depressive disorder, remission status [...] Active traZODone HCl 50 MG Oral Tablet (Desyrel)Indicatio ns:Insomnia, unspecified type Take 1 Tablet by mouth at bedtime. 30 Tablet 5 07/27/19 25 Active Hospital, Clinic, or Other Facility Administered Medication Ordered Dose Route Frequency Start Date End Date Status vitamin b-12 (Cyanocobalamin) inj 1,000 mcgIndications:Postgastric surgery syndrome 1000 mcg IM [id number] 10/16/2022 07/20/2025 Active documented as of this encounter (statuses as of 07/30/2024) Active Problems Problem Noted Date Diagnosed Date [...] as of this encounter (statuses as of 07/30/2024) Resolved Problems Problem Noted Date Diagnosed Date Resolved Date Intracranial hemorrhage 11/19/202307/02 Chronic obstructive pulmonary disease 11/15/2021 11/15/2021 Pre-operative examination 11/16/2020 Morbid obesity due to excess calories 10/27/2020 12/18/2021 MEDICATION USE AGREEMENT 05/14/2012 Overview (03/04/2015): Updated 03/04/2015 MD Ellie Briceño IIIed [facility] Calculus of gallbladder with out mention of cholecystitis or obstruction 11/16/2020 documented as of this encounter (statuses as of 07/30/2024) Immunizations Name Administration Dates Next Due COVID-19 [...] 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 Answer Date of Assessment Author No 11/06/2023 5:53 PM EDT Giancarlo Beltran RN * Are you blind or do you have serious difficulty seeing, even when wearing glasses? Answer Date of Assessment Author No 11/06/2023 5:53 PM EDT Giancarlo Beltran RN * Do you have serious [...] 08/04/2024 3:30 PM EST Office Visit Gastroenterology, [facility] [address] [place] [address] Shashank Wells CRNP [address] [place] [address] 08/12/2024 3:45 PM EST Imaging Radiology [facility] [address] [facility] [address] [place] [id number] 09/11/2024 8:20 AM EDT Telemedicine Nutrition & Weight Management, [place] [address] [place] [address] Addie Ramirez RDN [address] [place] [address] 09/11/2024 12:40 PM EDT Telemedicine Nutrition & Weight Management, [place] [address] [place] [address] Addie Ramirez RDN [address] [place] [address] 11/16/2024 9:00 AM EDT Telemedicine Psychiatry, [facility] [address] [place] [address] Robinson Caro CRNP [address] [place] [address] Scheduled Procedures Name Priority Associated Diagnoses Date/Ti [...] 08/01, 10/25/2015, Additional history exists COVID-19 Vaccine (2023- season) 2024 07/25/2021, 11/24/2020, 11/03/2020 Influenza Vaccine [...] the patient have Health Care Power of Chief Information Security Officer? Yes, not currently available * Full [...] Health Care Power of Attor carlso? No * Full Code Date Activated Date [...] Power of Attor carlos? No Care Teams Inspector Plating Relationship Specialty Start Date End Date Terri Owens, ANDREA [facility] [address] [place] [address] PCP - General Physician Master Sonar Technician 01/11/24 documented as of this encounter
--- OUTSIDE RECORDS SUMMARY | 2024-11-05 04:04 | External Medical Summary | Summary of Care ---
Author Name Unknown Organization [facility] Address [address] [place] [address] Phone [phone] Care Team Providers Care Supervisor Home Economics Name Role Phone Terri Owens PA-C Primary Care Provider [phone] Reason for Visit * Reason Onset Date Comments Hospital Follow-Up 07/21/2024 TIFFANIE Encounter Details Date Type Department Care Team (Late st Contact Info) Description 07/21/2024 Telephone Family Practice [facility] [address] [facility] [place] [address] Jacki Drummond, RN Hospital Follow-Up (TIFFANIE) Allergies No known active allergiesdocumented as of this encounter (statuses as of 07/31/2024) Medications Triamcinolone Acetonide 0.1 % External Ointment [...] 400 MG Oral Tablet 2 tabs daily 023 Active Zinc 50 MG Oral Tablet Take 1 Tablet by mouth in the morning. 023 Active Pantoprazole Sodium 40 MG Oral Tablet [...] deficiency anemia,Intestinal postoperative nonabsorption,S/P gastric bypass Per [facility] IV iron anaphylaxis protocol. TO BE ADMINISTERED IN THE EVENT OF ANAPHYLACTIC REACTION 1000 mL Active Additional Information Patient not taking.Informant: Patient, Reported on 11/06/2023 dexAMETHasone Sodium Phosphate 4 MG/ML Injection Solution (Decadron)Indicat ions:Other iron deficiency anemia,Intestinal postoperative nonabsorption,S/P gastric bypass Inject 8 mg intravenously as needed for Anaphylaxis (severe allergic reaction). Per [facility] IV iron anaphylaxis protocol 2 mL Active [...] nutrition for further management.. 120 Tablet Active B-Complex/Vitamin C Oral Tablet (Therapeutic B Complex W/C) Take 1 Tablet by mouth in the morning. Follow up with GI nutrition for further management.. 30 Tablet Active Ascorbic Acid 250 MG Oral Tablet Take 1 Tablet by mouth daily at noon. Follow up with GI nutrition for further management. 30 Tablet Active Vitamin D3 25 MCG (1000 UT) Oral Tablet (Vitamin D3) Take 1 Tablet by mouth in the morning. Follow up with GI nutrition for further management.. 30 Tablet 1 Active Scopolamine 1 MG/3DAYS Transdermal Patch 72 Hour (Transderm Scop) Place 1 Patch over 72 hours topically on the skin every 3 days. 10 Patch 12 Active Prochlorperazine Maleate 5 MG Oral Tablet [...] directed through feeding tube via feeding pump. [id number] mL 07/31/19 25 3:29 PM EST 024 2024 Active Ondansetron 4 MG Oral Tablet Disintegrating (Zofran) Place 1 Tablet on tongue every 8 hours as needed for Nausea. dissolve on tongue. 30 Tablet 3 023 2024 Discontinued(R efill) clonazePAM 1 MG Oral Tablet (KlonoPIN)Indicat ions:PTSD (post-traumatic stress disorder),Major depressive disorder, remission status unspecified, unspecified whether recurrent,Anxiety Take 1 Tablet by mouth daily as needed for Anxiety. 30 Tablet 024 2024 Discontinued Hospital, Clinic, or Other Facility Administered Medication Ordered Dose Route Frequency Start Date End Date Status vitamin b-12 (Cyanocobalamin) inj 1,000 mcgIndications:Postgastric surgery syndrome 1000 mcg IM [id number] 10/16/2022 07/20/2025 Active documented as of this encounter (statuses as of 07/31/2024) Active Problems Problem Noted Date Diagnosed Date [...] as of this encounter (statuses as of 07/31/2024) Resolved Problems Problem Noted Date Diagnosed Date Resolved Date Intracranial hemorrhage 11/19/202307/02 Chronic obstructive pulmonary disease 11/15/2021 11/15/2021 Pre-operative examination 11/16/2020 Morbid obesity due to excess calories 10/27/2020 12/18/2021 MEDICATION USE AGREEMENT 05/14/2012 Overview (03/04/2015): Updated 03/04/2015 MD Neli Briceño III's [place] Calculus of gallbladder with out mention of cholecystitis or obstruction 11/16/2020 documented as of this encounter (statuses as of 07/31/2024) Immunizations Name Administration Dates Next Due COVID-19 [...] Industry Job Start Date Job End Date [employer] Not on file Not on file Not on file documented as of this encounter Functional Status * Are you deaf or do you have serious difficulty hearing? Answer Date of Assessment Author No 11/06/2023 5:53 PM NAUN Beltran, Giancarlo Darling RN * Are you blind or do [...] Entry Date Author No 11/06/2023 5:53 PM EDGiancarlo Ramirez RN documented in this encounter Miscellaneous Notes * Telephone Encounter - Tanya Crowder RN - 07/31/2024 2:12 PM EST Approval received. Dr. Og - spoke to patient and , stated patient has been experiencing chronic severe episodes of nausea leading to multiple ER visits and admissions. states this did not start and patient was fine until tube change in January. Pt scheduled 08/13 at 1:40. * Telephone Encounter - Tanya Crowder RN - 07/31/2024 2:00 PM EST Submitted for approval for close in release slot for the patient. Awaiting response. * Telephone Encounter - Jacki Drummond RN - 07/21/2024 10:01 AM EST Transitions of Care Note Reason for Referral:Recent Admission Phone visit for follow up: TIFFANIE Admitted to: [facility], Date: 07/19/2024 Discharged to: Home, Date: 07/20/2024 Diagnosis driving hospitalization: Intractable nausea and vomiting Source/Contact: Patient SUBJECTIVE Consent: Verbal consent for review of hospital discharge: Yes REVIEW OF SYSTEMS Patient/Other Reports: Current patient/caregiver problems or concerns: Patient states that she is resting in bed today. She states that she feels a little weak. Patient states that she did not do any tube feed last night as she did not feel up to it. She states that she will try tube feeds today. Patient states that she has not had any vomiting since coming home but has really only had a few sips of water. Patient states that she has had some loose stools as well. Patient states that she has been to the hospital about once a month for the past 6 months or so. Patient states that prior to these episodes of nausea/vomiting she experiences "hiccups". The hiccups make her feel very nauseated. Upon further discussion, patient has not been doing water through G-tube other than to flush after feeds. Explained that patient should be getting about 800 ml water per day in addition to the Nutren. Patient has only been taking Sertraline, and multivitamin by mouth. Patient is not taking any othervitamins. Multiple medications listed on patient's medication list. Orders placed in November for labs to check for need for additional vitamins. Patient has not completed these labs. Explained that patient should see Nutrition and PCP to determine if labs are still needed. Patient needs medication review with PCP as patient has not been seen by PCP since October. CV: Fatigue- patient feels weak Pulmonary: Denies problems Chills/Sweats/Fever:Denies chills/sweats Denies fever Appetite:Not tolerating tube feedings-patient did not attempt tube feed last night Current diet: tube feeds Bowel: some loose stools Bladder: denies problems Wound (If applicable): N/A Pain:Location- abdomen Intensity- 3 (Scale 0-10) Sleep:Denies problems FUNCTIONAL STATUS: ADL'S: Needs Assistance With:N/A as pt is independent IADL'S: Needs Assistance With:Grocery Shopping, Cooking food, and Routine Housework Cognitive and Mental Health: denies problems, alert and oriented x 3, and able to communicate, understand instructions, process information. MEDICATION RECONCILIATION Medications: Discharge med list reviewed with patient or caregiver Reviewed and updated all prescription and OTC medications in Epic Does not take all medications as prescribed - Does not understand purpose of medication Denies side effects ASSESSMENT Medication Risk Assessment: No risks identified Did patient fail outpatient treatment? No Discharge instructions available for review? Yes PLAN Symptom Monitoring Interventions:Member/caregiver education - signs and symptoms to contact PrimaryCare (DO NOT DELETE-Three lainez symptoms patient is to report to PCP) 1. Fever/chills 2. N/V/D 3. 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 Educated patient/caregiver on patient right to have input on TIFFNAIE plan of care. Verification of Home Health/DME if indicated: YES [facility] for tube feeds Identified Care Gaps: Yes Care Gaps closed this call: Appointment made or confirmed, Lab/radiology testing coordinated, Life planning discussed, Medication adherence, Medication monitoring, Medication omittance, Medication optimization, Plan of care optimization, Post discharge appointment, and Safety and self care issues ad dressed Re-evaluation of Plan of Care and progress towards goals achievement: Patient education this visit: Verbal, see above Plan to follow-up as previously scheduled, instructed to call Primary Care Provider with change in symptoms or as needed before next follow-up, discharge needs met, verbalizes understanding and agrees with plan. Jacki Drummond RN documented in this encounter Plan of Treatment Upcoming Encounters Date Type Department Care Team (Late st Contact Info) Description 08/04/2024 3:30 PM EST Office Visit Gastroenterology, [facility] [address] [address] Shashank Wells CRNP [address] [place] [address] 08/12/2024 3:45 PM EST Imaging Radiology [address] [place] [address] 08/13/2024 1:40 PM EST Office Visit Nutrition & Weight Management, [facility] [address] [place] [address] Emily Og MD [address] [place] [address] 09/11/2024 8:20 AM EDT Telemedicine Nutrition & Weight Management, [place] [address] [place] [address] Addie Ramirez RDN [address], [place] [id number] 09/11/2024 12:40 PM EDT Telemedicine Nutrition & Weight Management, [place] [address] [place] [address] Addie Ramriez RDN [address], [place] [id number] 11/16/2024 9:00 AM EDT Telemedicine Psychiatry, [facility] [address] [place] [address] Robinson Caro CRNP [address] [place] [address] Scheduled Procedures Name Priority Associated Diagnoses Date/Ti [...] the patient have Health Care Power of Health And Wellness Advisor? Yes, not currently available * Full [...] Power of Attor carlos? No Care Teams Supervisor Home Economics Relationship Specialty Start Date End Date GracielaSeptember ANDREA [place] [address] [place] [address] PCP - General Physician Emergency Dept Tech 01/11/24 documented as of this encounter
--- OUTSIDE RECORDS SUMMARY | 2024-11-05 04:04 | External Medical Summary | Summary of Care ---
Author Name Unknown Organization [facility] Address [address] [place] [address] Phone [phone] Care Team Providers Care Knit Goods Mender Name Role Phone Terri Owens PA-C Primary Care Provider [phone] Reason for Visit * Reason Onset Date Comments Hospital Follow-Up 07/21/2024 TIFFANIE Encounter Details Date Type Department Care Team (Late st Contact Info) Description 07/21/2024 Telephone Family Practice [facility] [address] [facility] [place] [address] Jacki Drummond, RN Hospital Follow-Up (TIFFANIE) Allergies No known active allergiesdocumented as of this encounter (statuses as of 07/21/2024) Medications Triamcinolone Acetonide 0.1 % External Ointment (Aristocort)Indica tions:Prurigo Apply 2x daily (or more if itchy instead of scratching) to rash/lesions all over body until resolved 454 g 11/18/19 21 Active Additional Information Patient not taking.Informant: Patient, Reported on 02/12/2024 Adapalene 0.1 % External GelIndications:Acn e vulgaris Apply topically to affected area. As directed. 15 g 5 11/18/19 21 Active One-A-Day Womens Oral Tablet Take by mouth. Act jane Ondansetron 4 MG Oral Tablet Disintegrating (Zofran) Place 1 Tablet on tongue every 8 hours as needed for Nausea. dissolve on tongue. 30 Tablet 3 08/28/19 Active Magnesium 400 MG Oral Tablet 2 tabs daily 05/14/20 Active Zinc 50 MG Oral Tablet Take 1 Tablet by mouth in the morning. 05/14/20 Active Pantoprazole Sodium 40 MG Oral Tablet Delayed Release (Protonix) Take 1 Tablet by mouth as needed. 09/13/19 Active Promethazine HCl 25 MG Oral Tablet [...] [facility] IV iron anaphylaxis protocol 2 mL 10/25/19 [...] infusion reaction protocol 2 mL 10/25/19 Active Additional Information Patient not taking.Informant: Patient, Reported on 11/06/2023 Ferrous Sulfate 325 (65 Fe) MG Oral Tablet (Feosol) Take 1 Tablet by mouth daily at noon. Follow up with GI nutrition for further management. 30 Tablet 1 11/11/19 Active Calcium Citrate-Vitamin D 315-5 MG-MCG Oral Tablet Take 2 Tablets by mouth in the morning and 2 Tablets before bedtime. Follow up with GI nutrition for further management.. 120 Tablet 1 05/13/20 24 Active B-Complex/Vitamin C Oral Tablet (Therapeutic [...] management.. 30 Tablet 1 11/12/19 24 Active Scopolamine 1 MG/3DAYS Transdermal [...] ANXIETY 180 Tablet 1 06/22/20 24 Active clonazePAM 1 MG Oral Tablet (KlonoPIN)Indicati ons:PTSD (post-traumatic stress disorder),Major depressive disorder, remission status unspecified, unspecified whether recurrent,Anxiety Take 1 Tablet by mouth daily as needed for Anxiety. 30 Tablet 06/25/20 24 Active Nutren 2.0 Oral LiquidIndications: Gastroesophageal reflux disease without esophagitis,Dehydr ation,Severe protein-energy malnutrition (HCC),Diarrhea, unspecified type,Nausea and vomiting, unspecified vomiting type,Unintentional weight loss Pump - Administer four containers at 105 mL/hr daily as tolerated, as directed through feeding tube via feeding pump. 120073 mL 11:59 PM EST 04/15/20 24 025 Active Hospital, Clinic, or Other Facility Administered Medication Ordered Dose Route Frequency Start Date End Date Status vitamin b-12 (Cyanocobalamin) inj 1,000 mcgIndications:Postgastric surgery syndrome 1000 mcg IM [id number] 10/16/2022 07/20/2025 Active documented as of this encounter (statuses as of 07/21/2024) Active Problems Problem Noted Date Diagnosed Date [...] as of this encounter (statuses as of 07/21/2024) Resolved Problems Problem Noted Date Diagnosed Date Resolved Date Chronic obstructive pulmonary disease 11/15/2021 11/15/2021 Pre-operative examination 11/16/2020 Morbid obesity due to excess calories 10/27/2020 12/18/2021 MEDICATION USE AGREEMENT 05/14/2012 Overview (03/04/2015): Updated 03/04/2015 Joey Crockett III, MD Neli Valdes's [place] Calculus of gallbladder with out mention of cholecystitis or obstruction 11/16/2020 documented as of this encounter (statuses as of 07/21/2024) Immunizations Name Administration Dates Next Due COVID-19 [...] Industry Job Start Date Job End Date [employer] Not on file Not on file Not [...] of Assessment Author No 11/06/2023 5:53 PM Rachel Rubio RN documented as of this encounter Mental Status * Because of a physical, mental, or emotional condition, do you have serious difficulty concentrating, remembering, or making decisions? (5 years old or older) Answer Entry Date Author No 11/06/2023 5:53 PM Giancarlo Rubio RN documented in this encounter Miscellaneous Notes * Telephone Encounter - Jacki Drummond RN - 07/21/2024 10:01 AM EST Transitions of Care Note Reason for Referral:Recent Admission Phone visit for follow up: TIFFANIE Admitted to: [facility], Date: 07/19/2024 Discharged to: Home, Date: 07/20/2024 [...] PCP) 1. Fever/chills 2. N/V/D 3. 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 Educated patient/caregiver on patient right to have input on TIFFANIE plan of care. Verification of Home Health/DME if indicated: YES [facility] for tube feeds Identified Care [...] Care Team (Late st Contact Info) Description 07/27/2024 12:00 PM EST Office Visit Family Practice [facility] [address] [facility] [place] [address] Terri Owens PA-C [address] [facility] [place] [place] [address] 09/11/2024 8:20 AM EDT Telemedicine Nutrition & Weight Management, [place] [address] [place] [address] Addie Ramirez RDN [address] [place] [address] 09/11/2024 12:40 PM EDT Telemedicine Nutrition & Weight Management, [place] [address] [place] [address] Addie Ramirez RDN [address] [place] [address] 11/16/2024 9:00 AM EDT Telemedicine Psychiatry, [address] [place] [address] Robinson Caro CRNP [address] [place] [address] Scheduled Procedures Name Priority Associated Diagnoses Date/Ti [...] patient have Health Care Power of Health Center Associate? Yes, not currently available * Full Code [...] Power of Attor carlos? No Care Teams Knit Goods Mender Relationship Specialty Start Date End Date Graciela September [place] [address] PCP - General Physician Quality Assurance Coach 01/11/24 documented as of this encounter
--- OUTSIDE RECORDS SUMMARY | 2024-11-05 04:04 | External Medical Summary | Summary of Care ---
Author Name Unknown Organization [facility] Address [address] [place] [address] Phone [phone] Care Team Providers Care Busboy Name Role Phone Terri Owens PA-C Primary Care Provider [phone] Reason for Visit * Reason Comments eRx-Medication Refill Encounter Details Date Type Department Care Team (Late st Contact Info) Description 07/24/2024 Refill Family Practice [facility] [address] [place] [address] Terri Owens PA-C [address] [place] [address] PTSD (post-traumatic stress disorder); Major depressive disorder, remission status unspecified, unspecified whether recurrent; Anxiety Allergies No known active allergiesdocumented as of this encounter (statuses as of 07/25/2024) Medications Triamcinolone Acetonide 0.1 % External Ointment (Aristocort)Indic ations:Prurigo Apply 2x daily (or more if itchy instead of scratching) to rash/lesions all over body until resolved 454 g Active Additional Information Patient not taking.Informant: Patient, Reported on 02/12/2024 Adapalene 0.1 % External GelIndications:Ac ne vulgaris Apply topically to affected area. As directed. 15 g 5 021 Active One-A-Day Womens Oral Tablet Take by mouth. Act jane Ondansetron 4 MG Oral Tablet Disintegrating (Zofran) Place 1 Tablet on tongue every 8 hours as needed for Nausea. dissolve on tongue. 30 Tablet 3 Active Magnesium 400 MG Oral Tablet [...] on 11/06/2023 EPINEPHrine (Anaphylaxis) 1 MG/ML Injection SolutionIndicatio ns:Other iron deficiency anemia,Intestinal postoperative nonabsorption,S/P gastric bypass Inject 0.3 mL into a large muscle as needed for Anaphylaxis (severe allergic reaction). Per [facility] IV iron anaphylaxis protocol. May repeat every 15 min as needed per infusion reaction protocol 2 mL Active Additional Information Patient [...] further management.. 30 Tablet 1 024 Active Scopolamine 1 MG/3DAYS Transdermal Patch 72 [...] directed through feeding tube via feeding pump. [id number] mL 07/04/19 25 11:59 PM EST 2024 Active clonazePAM 1 MG Oral Tablet (KlonoPIN)Indicat ions:PTSD (post-traumatic stress disorder),Major depressive disorder, remission status unspecified, unspecified whether recurrent,Anxiety TAKE 1 TABLET BY MOUTH EVERY DAY NEEDED FOR ANXIETY 30 Tablet 025 Active clonazePAM 1 MG [...] 1,000 mcgIndications:Postgastric surgery syndrome 1000 mcg IM [id number] 10/16/2022 07/20/2025 Active documented as of this encounter (statuses as of 07/25/2024) Active Problems Problem Noted Date Diagnosed Date [...] as of this encounter (statuses as of 07/25/2024) Resolved Problems Problem Noted Date Diagnosed Date Resolved Date Chronic obstructive pulmonary disease 11/15/2021 11/15/2021 Pre-operative examination 11/16/2020 Morbid obesity due to excess calories 10/27/2020 12/18/2021 MEDICATION USE AGREEMENT 05/14/2012 Overview (03/04/2015): Updated 03/04/2015 MD Neli Briceño III's [place] Calculus of gallbladder with out mention of cholecystitis or obstruction 11/16/2020 documented as of this encounter (statuses as of 07/25/2024) Immunizations Name Administration Dates Next Due COVID-19 mRNA, LNP-s, No Pre serve, 2-Dose Series (ufindads) 11/24/2020,11/03/2020 Seasonal Influenza Vac., MDV , IM, [...] Industry 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 Start Date Job 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 Date [employer]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 Not on file Not on file Not [...] Telephone Encounter - Terri Owens PA-C - 07/25/2024 4:59 PM ESTSigned Prescriptions: Disp Refills clonazePAM 1 MG Oral Tablet (KlonoPIN) 30 Tab*0 Sig: TAKE 1 TABLET BY MOUTH EVERY DAY NEEDED FOR ANXIETYAuthorizing Provider: RINE, TERRI A * Telephone Encounter - Terri Owens PA-C - 07/25/2024 4:59 PM ESTSigned Prescriptions: Disp Refills clonazePAM 1 MG Oral Tablet (KlonoPIN) 30 Tab*0 Sig: TAKE 1 TABLET BY MOUTH EVERY DAY NEEDED FOR ANXIETY Authorizing Provider: TERRI OWENS * Telephone Encounter - Terri Owens PA-C - 07/25/2024 4:59 PM ESTSigned Prescriptions: Disp Refills clonazePAM 1 MG Oral Tablet (KlonoPIN) 30 Tab*0 Sig: TAKE 1 TABLET BY MOUTH EVERY DAY NEEDED FOR ANXIETY Authorizing Provider: TERRI OWENS * Telephone Encounter - Radha Holt DO - 07/25/2024 2:49 PM ESTPending Prescriptions: Disp Refills clonazePAM 1 MG Oral Tablet [Pharmacy Med *30 Tab*0 Sig: TAKE 1 TABLET BY MOUTH EVERY DAY NEEDED FOR ANXIETY * Telephone Encounter - Kerri Christopher CPhT - 07/25/2024 1:45 PM EST Patient is requesting high priority Thank you, Kerri Christopher CPhT [employer] [facility] [address] [place] [address], [address] * Telephone Encounter - Yuliana Sigala, [facility] - 07/24/2024 1:59 PM ESTPending Prescriptions: Disp Refills clonazePAM 1 MG Oral Tablet [Pharmacy Med *30 Tab*0 Sig: TAKE 1 TABLET BY MOUTH EVERY DAY NEEDED FOR ANXIETY * Telephone Encounter - Naomi Mccall rural route carrier - 07/24/2024 1:52 PM EST Pt calling to check on status of rx. Pt is out of rx. Caller can be reached at [phone]. Thanks, Naomi Mccall Staff Radiologist [facility] 07/24/2024,1:52 PM * Telephone Encounter - Ynes Santiago [facility] - 07/24/2024 1:47 PM ESTPending Prescriptions: Disp Refills clonazePAM 1 MG Oral Tablet [Pharmacy Med *30 Tab*0 Sig: TAKE 1 TABLET BY MOUTH EVERY DAY NEEDED FOR ANXIETY * Telephone Encounter - Ynes Santiago [facility] - 07/24/2024 1:46 PM EST I have reviewed the patient’s controlled substance dispensing history in the Prescription Drug Monitoring Program in compliance with the [facility] regulations before prescribing a controlled substance. PDMP checked on 07/24/2024. Pending Prescriptions: Disp Refills clonazePAM 1 MG Oral Tablet (KlonoPIN) [P*30 Tab*0 Sig: TAKE 1 TABLET BY MOUTH EVERY DAY NEEDED FOR ANXIETY Last Visit: 11/19/2023 (in office), 05/25/2024 (telemedicine) Next Visit: 07/27/2024 Date medication was last filled: 06/25/24 Date medication is due for refill: 07/24/23 Pharmacy: [id number] Is this request for a controlled substance? Yes and Urine Drug Screen Not completed Toxicology results: Results for orders placed or performed in visit on 04/26/17 TOX SCREEN, URINE, W/ CONFIRMATION Result Value Amphetamine POSITIVE (A) Barbiturates NEGATIVE Benzodiazepines POSITIVE (A) Cannabinoids POSITIVE (A) Cocaine Metabolite NEGATIVE Morphine / Codeine POSITIVE (A) METHADONE METABOLITE NEGATIVE OXYCODONE NEGATIVE TOX COMMENT THE ABOVE SCREENING RESULTS ARE PRESUMPTIVE AND CAN ONLY BE USED FOR MEDICAL PURPOSES. POSITIVE RESULTS REFLEX TO CONFIRMATORY TESTING. Cutoff Concentration *Note: Due to a large number of results and/or encounters for the requested time period, some results have not been displayed. A complete set of results can be found in Results Review. Please approve if appropriate. Thank You, Ynes Santiago [facility] Clinical Pharmacist [facility] [phone] 07/24/2024, 1:47 PM * Telephone Encounter - Devika Cortez, rural route carrier - 07/24/2024 1:40 PM EST Did you pend patient's preferred pharmacy and medication before forwarding?yes Pharmacy: [id number] [facility] Pending Prescriptions: Disp Refills clonazePAM 1 MG Oral Tablet (KlonoPIN) [P*30 Tab*0 Sig: TAKE 1 TABLET BY MOUTH EVERY DAY NEEDED FOR ANXIETY Last Visit: 11/19/2023 (in office), 05/25/2024 (telemedicine) Next Visit: 07/27/2024 If no future appointments scheduled, and last appointment is greater than a year ago, please schedule patient for a follow-up appointment Last date the medication was ordered: 06-25-24 Is this request for a controlled substance?Yes, What was the last refill date 06-25-24 w/ quantity 30 and dosage 1 mg and Urine Drug Screen was completed Urine Drug Screen: Results for orders placed or performed in visit on 04/26/17 TOX SCREEN, URINE, W/ CONFIRMATION Result Value Amphetamine POSITIVE (A) Barbiturates NEGATIVE Benzodiazepines POSITIVE (A) Cannabinoids POSITIVE (A) Cocaine Metabolite NEGATIVE Morphine / Codeine POSITIVE (A) METHADONE METABOLITE NEGATIVE OXYCODONE NEGATIVE TOX COMMENT THE ABOVE SCREENING RESULTS ARE PRESUMPTIVE AND CAN ONLY BE USED FOR MEDICAL PURPOSES. POSITIVE RESULTS REFLEX TO CONFIRMATORY TESTING. Cutoff Concentration *Note: Due to a large number of results and/or encounters for the requested time period, some results have not been displayed. A complete set of results can be found in Results Review. Patient Phone Numbers [employer] [phone] Labs: Lab Results Component Value Date/Time CREAT 0.6 11/14/2023 03:42 PM CREAT 0.77 05/03/2021 12:00 AM CREAT 1.0 04/15/2020 01:47 PM POTASSIUM 4.1 11/14/2023 03:42 PM POTASSIUM 4.3 05/03/2021 12:00 AM POTASSIUM 4.7 04/15/2020 01:47 PM [...] 12:00 PM EST Office Visit Family Practice [facility] [address] [place] [address] Terri Owens PA-C [address] [facility] [place] [address] 09/11/2024 8:20 AM EDT Telemedicine Nutrition & Weight Management, [place] [address] [place] [address] Addie Ramirez RDN [address] [place] [address] 09/11/2024 12:40 PM EDT Telemedicine Nutrition [facility], [place] [address] [place] [address] Addie Ramirez RDN [address] [place] [address] 11/16/2024 9:00 AM EDT Telemedicine Psychiatry, [facility] [address] [facility] [place] [address] Robinson Caro CRNP [address] [facility] [place] [address] Scheduled Procedures Name Priority Associated Diagnoses [...] the patient have Health Care Power of Intensive Care Medicine Specialist? Yes, not currently available * Full Code [...] Power of Attor carlos? No Care Teams Busboy Relationship Specialty Start Date End Date Terri Owens PA-C [address] [place] [address] PCP - General Physician Drop Board Worker 01/11/24 documented as of this encounter
--- OUTSIDE RECORDS SUMMARY | 2024-11-05 04:04 | External Medical Summary | Summary of Care ---
Author Name Unknown Organization [facility] Address [address] [place] [address] Phone [phone] Care Team Providers Care Rug Cleaner Helper Name Role Phone Terri Owens PA-C Primary Care Provider [phone] Reason for Referral * Evaluate & Treat - Unlimited Visits (Within 30 days (routine)) - Pending Review Specialty Diagnoses / Procedures Referred By Olivia mendez Referred To Contact Psychiatry Diagnoses Moderate episode of recurrent major depressive disorder (HCC) Eating disorder, unspecified type Terri Owens PA-C [address] [place] [address] Phone: tel: fax: Referral ID Status Reason Start Date Expiration Date Visits Requested Visits Authorized [id number] Pending Review Specialty Services Required 07/27/[phone] Question Answer Referral Priority Within 30 days (routine) Where should this appointment be scheduled? [facility] Is this referral for medication management? Yes Reason for Referral Depression * Evaluate & Treat - Unlimited Visits (Within 10 days (routine)) - Pending Review Specialty Diagnoses / Procedures Referred By Olivia mendez Referred To Contact Gastroenterology Diagnoses S/P gastrostomy tube (G tube) placement, follow-up exam Severe protein-energy malnutrition (HCC) History of Maryuri-en-Y gastric bypass Terri Owens PA-C [address] [place] [address] Phone: tel: fax: Referral ID Status Reason Start Date Expiration Date Visits Requested Visits Authorized [id number] Pending Review Specialty Services Required 07/27/[phone] Question Answer Referral Priority Within 10 days (routine) Where should this appointment be scheduled? [facility] For what condition is the patient being referred? All Gastro Conditions Reason for Visit * Reason Onset Date Comments Hospital Follow-Up 07/27/2024 Encounter Details Date Type Department Care Team (Late st Contact Info) Description 07/27/2024 12:00 PM EST Office Visit [facility] [place] [address] [facility] [place] [address] Terri Owens PA-C [address] [facility] [place] [address] Encounter for screening mammogram for breast cancer*; Hospital discharge follow-up; S/P gastrostomy tube (G tube) placement, follow-up exam; Severe protein-energy malnutrition (HCC); Unintentional weight loss; Nausea and vomiting, unspecified vomiting type; Moderate episode of recurrent major depressive disorder (HCC); History of Maryuri-en-Y gastric bypass; Eating disorder, unspecified type; Insomnia, unspecified type; Attention to G-tube (HCC); Vomiting associated with bulimia nervosa with nausea; Recurrent major depressive disorder, remission status unspecified (HCC); History of stroke Allergies No known active allergiesdocumented as of this encounter (statuses as of 07/27/2024) Medications Triamcinolone Acetonide 0.1 % External Ointment [...] management. 30 Tablet 1 11/11/19 24 Active Vitamin D3 25 MCG [...] directed through feeding tube via feeding pump. [id number] mL 5 11:59 PM EST 04/15/20 24 [...] bedtime. 30 Tablet 5 07/27/19 25 Active Ondansetron 4 MG Oral Tablet Disintegrating (Zofran) Place 1 Tablet on tongue every 8 hours as needed for Nausea. dissolve on tongue. 30 Tablet 3 08/28/19 23 025 Discontin ued(Refil l) Hospital, Clinic, or Other Facility Administered Medication Ordered Dose Route Frequency Start Date End Date Status vitamin b-12 (Cyanocobalamin) inj 1,000 mcgIndications:Postgastric surgery syndrome 1000 mcg IM [id number] 10/16/2022 07/20/2025 Active documented as of this encounter (statuses as of 07/27/2024) Active Problems Problem Noted Date Diagnosed Date [...] as of this encounter (statuses as of 07/27/2024) Resolved Problems Problem Noted Date Diagnosed Date Resolved Date Intracranial hemorrhage 11/19/202307/02 Chronic obstructive pulmonary disease 11/15/2021 11/15/2021 Pre-operative examination 11/16/2020 Morbid obesity due to excess calories 10/27/2020 12/18/2021 MEDICATION USE AGREEMENT 05/14/2012 Overview (03/04/2015): Updated 03/04/2015 MD Neli Briceño III's [place] Calculus of gallbladder with out mention of cholecystitis or obstruction 11/16/2020 documented as of this encounter (statuses as of 07/27/2024) Immunizations Name Administration Dates Next Due COVID-19 mRNA, LNP-s, No Pre serve, 2-Dose Series (TOSA (Tests On Software Applications)) 07/25/2021,11/24/2020,11/03/2020 Seasonal Influenza Vac., MDV , IM, [...] 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 Not on file Not on file documented as of this encounter Last Filed Vital Signs Vital Sign Reading Time Taken Comments Blood Pressure 96/56 07/27/2024 12:00 PM EST Pulse 74 07/27/2024 12:00 PM EST Temperature 37 °C (98.6 °F) 07/27/2024 12:00 PM EST Respiratory Rate 16 07/27/2024 12:00 PM EST Oxygen Saturation 96% 07/27/2024 12:00 PM EST Inhaled Oxygen Concentration - - Weight 53.3 kg (117 lb 6.4 oz) 07/27/2024 12:00 PM EST Height - - Body Mass Index 20.8 06/11/2024 1:11 PM EST documented in this [...] this encounter Patient Instructions * Patient Instructions* Terri Owens ANDREA - 07/27/2024 12:27 PM EST Taking Medicine Safely Medicine is given to help treat or prevent illness. But if you don't take it correctly, it might not help. It might even harm you. Your doctor or pharmacist can help you learn the right way to take your medicine. Listed below are some tips to help you take medicine safely. Safety Tips Have a routine for taking each medicine. Make it part of something you do each day, such as brushing your teeth or eating a meal. When you go to the hospital or your doctor's office, bring all your current medicines in their original boxes or bottles. If you can't do that, bring an up-to-date list of your medicines. Do not stop taking a prescription medicine unless your doctor tells you to. Doing so could make your condition worse. Do not share medicines. Let your doctor and pharmacist know of any allergies you have. Taking prescription medicines with alcohol, street drugs, herbs, supplements, or even some gsrk-vbf-foftrmp medicines can be harmful. Talk to your doctor or pharmacist before using any of these things while taking a prescription medicine. When filling your prescriptions, try using the same pharmacy for all your medicines. If not, let the pharmacist know what medicines you are already on. Keep medicines out of the reach of children and pets. Do not use medicine that has or that doesn't look or smell right. Get rid of it properly. To find out the right way to get rid of medicine: Call your [facility] or [facility] government's household trash and recycling service and ask if a drug take-back program is available in your community. Call your local pharmacy and ask the right way to get rid of the medicine. Go to http://www.fda.gov/ForConsumers/ConsumerUpdates/svr541641 to learn how to get rid of medicines safely. Using Generic Medicines Medicines have brand names and generic (chemical) names. When a medicine is first made, it is sold only under its brand name. Later, it can be made and sold as a generic. Generic medicines cost less than brand-name medicines and most work just as well. Most people can use the generic medicine instead of the brand-name medicine, unless their doctor says otherwise. Bentley Bass, [address] [place] [address]. All rights reserved. This information is not intended as a substitute for professional medical care. Always follow your healthcare professional's instructions. Coping with Your Diagnosis of a Chronic Health Condition If you have a chronic health condition, you have a problem that may not go away over time. Heart disease, asthma, arthritis, and diabetes are just a few of the chronic conditions that exist. Right now, these conditions have no known cure. But you can take an active role in managing your health. Coping with Your Diagnosis If you've just learned about your health condition, you may be angry, depressed, or afraid. Or you might feel relieved just to know what's wrong. Even if you've known about your health problem for a while, adjusting to it can be hard. But learning about your condition can help you cope. Look for books at your local library. If you have access to a computer, check the Internet. Or contact a group that focuses on your specific problem. Accepting Change Change is hard for most people. Yet right now you may be facing many changes. What you eat or the way you work may change. Your moods, and even your symptoms, might vary from day to day. Although it isn't easy, learning to accept change can help you feel more in control. Taking Control Feeling you have control can make living with your condition easier. Discuss treatment options withyour health care provider. The more you know, the more active you can be in your care. Moving Forward You may wonder whether you will be able to do the things you've always done. That depends on your age, the condition you have, and your goals. To make the most of each day, try to build caring relationships, be active, and eat right. Also, do your best to keep a sense of humor. [facility], [address] [place] [address]. All rights reserved. This information is not intended as a substitute for professional medical care. Always follow your healthcare professional's instructions. documented in this encounter Progress Notes * Terri Owens PA-C - 07/27/2024 12:24 PM EST SUBJECTIVE: Aleah Marie is a 54 year old female. Chief Complaint Patient presents with Hospital Follow-Up Recent Admission: Patient was recently admitted to [facility]. The date of discharge was 07/20/24. Discharge report receivedand reviewed. HPI: patient is a 54 year old female who presenets for follow up. Recent overnight hospitlization for GI issues Had a bypass done. History of stroke Issues with eating has had a G tube plaede. Appetite poor; taking 4 bottles of GI supplement nightly Sleep poor Urination/ bowel movements ; bms irregular. Patient Active Problem List Diagnosis Major depressive [...] Concussion Severe protein-energy malnutrition (HCC) History of Maryuri-en-Y gastric bypass Unintentional weight loss Attention to G-tube (HCC) Hyperkalemia S/P gastrostomy tube (G tube) placement, follow-up exam Nausea Intracranial hemorrhage (HCC) Current Outpatient Medications Medication Sig Dispense Refill [...] 1 Tablet by mouth in the morning. Promethazine HCl 25 MG Oral Tablet (Phenergan) [...] nutrition for further management.. 30 Tablet 1 Ascorbic Acid 250 MG [...] directed through feeding tube via feeding pump. 900602 mL 0 clonazePAM 1 MG Oral Tablet (KlonoPIN) TAKE 1 TABLET BY MOUTH EVERY DAY NEEDED FOR ANXIETY 30 Tablet 0 Lansoprazole 30 MG Oral Tablet Delayed Release Disintegrating (Prevacid SoluTab) GIVE 1 TABLET VIA PEG TUBE DAILY IN THE MORNING Pantoprazole Sodium 40 MG Oral Tablet Delayed Release (Protonix) Take 1 Tablet by mouth as needed. (Patient not taking: Reported on 02/12/2024) Sodium Chloride 0.9 % Intravenous Solution Per IS IV iron anaphylaxis protocol. TO BE ADMINISTERED IN THE EVENT OF ANAPHYLACTIC REACTION (Patient not taking: Reported on 10/31/2023) 1000 mL 11 Current Facility-Administered Medications Medication Dose Route Frequency Provider Last Rate Last Admin vitamin b-12 (Cyanocobalamin) inj 1,000 mcg 1,000 mcg Intramuscular Q12 Weeks Terri Owens PA-C 1,000 mcg at 10/16/22 1057 Current and discharge medications have been reconciled. Review of patient's allergies indicates: No Known Allergies OBJECTIVE: BP 96/56 | Pulse 74 | Temp 98.6 °F (37 °C) (Tympanic) | Resp 16 | Wt 117 lb 6.4 oz (53.3 kg) | LMP 05/05/2014 | SpO2 96% | BMI 20.80 kg/m² | BSA 1.54 m² Review Of Systems: Skin: negative Eyes: negative Ears/Nose/Throat: negative Respiratory: negative Cardiovascular: negative Gastrointestinal: nausea, G tube placed Genitourinary: negative Musculoskeletal: pt denies significant joint pain or stiffness Neurologic: muscle weakness and memory loss Psychiatric: sleep disturbance and depression Hematologic/Lymphatic/Immunologic: negative Endocrine: negative PHYSICAL EXAM: General: alert, no distress, well nourished, well developed, cooperative, malnourished, and pale Head: Normocephalic, No masses, lesions, tenderness or [...] diaphragmatic excursion normal, lungs clear to auscultation Abdomen: abdomen soft, non-tender, normal bowel sounds, no masses or organomegaly, no rebound or guarding, no CVA tenderness, and feeding tube in place Extremities: less than 2 second capillary refill, no joint deformities, effusion, or inflammation, no edema, no skin discoloration, no clubbing, no cyanosis Neuro Exam: alert & oriented x 3 with fluent speech, no focal motor/sensory deficits ASSESSMENT: Encounter for screening mammogram for breast cancer (Primary) Hospital discharge follow-up - DISCH MED RECON CUR MED LIS Encounter for screening mammogram for breast cancer (Primary) - MAMMOGRAM SCREENING NURIA BILATERAL; Future; Expected date: 07/27/2024 Hospital discharge follow-up - DISCH MED RECON CUR MED LIS S/P gastrostomy tube (G tube) placement, follow-up exam - ADULT GASTROENTEROLOGY REFERRAL OP Severe protein-energy malnutrition (HCC) - ADULT GASTROENTEROLOGY REFERRAL OP Unintentional weight loss Nausea and vomiting, unspecified vomiting type - CBC; Future; Expected date: 07/27/2024 - COMPREHENSIVE METABOLIC PANEL; Future; Expected date: 07/27/2024 Moderate episode of recurrent major depressive disorder (HCC) - ADULT/PEDS PSYCHIATRY REFERRAL OP History of Maryuri-en-Y gastric bypass - ADULT GASTROENTEROLOGY REFERRAL OP Eating disorder, unspecified type - ADULT/PEDS PSYCHIATRY REFERRAL OP Insomnia, unspecified type - traZODone HCl 50 MG Oral Tablet (Desyrel); Take 1 Tablet by mouth at bedtime. Attention to G-tube (HCC) Vomiting associated with bulimia nervosa with nausea Recurrent major depressive disorder, remission status unspecified (HCC) History of stroke Other orders - Ondansetron 4 MG Oral Tablet Disintegrating (Zofran); Place 1 Tablet on tongue every 8 hours as needed for Nausea. dissolve on tongue. Check-out note: Schedule GI, Dr Phong CORONA for eating disorder. /psychiatry PLAN: Continue present medication(s): Follow up as needed. I spent a total of 40-54 minutes (exact time 45 mins) minutes on the date of service in preparation, delivery, and documentation of the care provided to Aleah Marie excluding any time spent in performance of separately billed services. Terri Owens PA-C documented in this encounter Plan of Treatment Upcoming Encounters Date Type Department Care Team (Late st Contact Info) Description 08/04/2024 3:30 PM EST Office Visit Gastroenterology, [facility] [address] [place] [address] Shashank Wells CRNP [address] [facility] [place] [address] 08/12/2024 3:45 PM EST Imaging Radiology [facility]st [facility] [address] [place] [id number] 09/11/2024 8:20 AM EDT Telemedicine Nutrition & Weight Management, [address] [address] Addie Ramirez RDN [address] [place] [address] 09/11/2024 12:40 PM EDT Telemedicine Nutrition & Weight Management, [address] [address] Addie Ramirez RDN [address] [place] [address] 11/16/2024 9:00 AM EDT Telemedicine Psychiatry, [facility] [address] [place] [address] Robinson Caro CRNP [address] [facility] [place] [address] Scheduled Orders Name Type Priority Associated Diagnoses Orde r Schedule MAMMOGRAM SCREENING NURIA BILATERAL Medical Imaging Routine Encounter for screening mammogram for breast cancer Expected: 07/27/2024, Expires: 08/27/2025 CBC Lab Routine Nausea and vomiting, unspecified vomiting type Expected: 07/27/2024 (Approximate), Expires: 07/27/2025 COMPREHENSIVE METABOLIC PANEL Lab Routine Nausea and vomiting, unspecified vomiting type Expected: 07/27/2024 (Approximate), Expires: 07/27/2025 Scheduled Procedures Name Priority Associated Diagnoses Date/Ti me ESOPHAGOGASTRODUODENOSCOPY ( EGD), FLEXIBLE, TRANSORAL, DIAGNOSTIC Recall Intestinal metaplasia of stomach COLONOSCOPY FLEXIBLE PROXIMAL DIAGNOSTIC Recall Screen for colon cancer Scheduled Referrals Name Type Priority Associated Diagnoses Orde r Schedule ADULT GASTROENTEROLOGY REFERRAL OP Referral Within 10 days (routine) S/P gastrostomy tube (G tube) placement, follow-up exam Severe protein-energy malnutrition (HCC) History of Maryuri-en-Y gastric bypass Ordered: 07/27/2024 ADULT/PEDS PSYCHIATRY REFERRAL OP Referral Within 30 days (routine) Moderate episode of recurrent major depressive disorder (HCC) Eating disorder, unspecified type Ordered: 07/27/2024 Health Maintenance Due Date Last Done Comments [...] Tdap) 07/27/2030 07/27/2020, 05/14/2007 Colonoscopy 08/31/2030 08/31/2020, 030 08/2020, 06/30/2014, Additional history exists Colorectal Cancer Screening 08/31/2030 HPV (Gardasil) Vaccine Aged Out No lo nger eligible based on patient's age to complete this topic MENINGOCOCCAL (MENACTRA/MENVEO) Aged Out No longer eligible based on patient's age to complete this topic documented as of this encounter Medical Devices Not on filedocumented as of this encounter Visit Diagnoses Diagnosis Encounter for screening mammogram for breast cancer- Primary Hospital discharge follow-up Other follow-up examination S/P gastrostomy tube (G tube) placement, follow-up exam Follow-up examination, following other surgery Severe protein-energy malnutrition (HCC) Other severe protein-calorie malnutrition Unintentional weight loss Loss of weight Nausea and vomiting, unspecified vomiting type Moderate episode of recurrent major depressive disorder (HCC) History of Maryuri-en-Y gastric bypass Bariatric surgery status Eating disorder, unspecified type Insomnia, unspecified type Attention to G-tube (HCC) Attention to gastrostomy Vomiting associated with bulimia nervosa with nausea Recurrent major depressive disorder, remission status unspecified (HCC) History of stroke Transient ischemic attack (TIA), and cerebral infarction without residual deficits documented in this encounter Advance Directives * [...] the patient have Health Care Power of Press Box Custodian? Yes, not currently available * Full Code [...] Power of Attor carlos? No Care Teams Rug Cleaner Helper Relationship Specialty Start Date End Date Graciela September Lorenzo, ANDREA [address] [place] [address] PCP - General Physician Circulating Process Inspector 01/11/24 documented as of this encounter"
--- OUTSIDE RECORDS SUMMARY | 2024-11-05 04:04 | External Medical Summary | Summary of Care ---
Author Name Unknown Organization [facility] Address [address] [place] [address] Phone [phone] Care Team Providers Care Sales Representative Aircraft Name Role Phone Terri Owens PA-C Primary Care Provider [phone] Reason for Visit * Reason Onset Date Comments Hospital Follow-Up 07/21/2024 TIFFANIE Encounter Details Date Type Department Care Team (Late st Contact Info) Description 07/21/2024 Telephone Family Practice [facility] [address] [facility] [place] [address] Jacki Drummond, RN Hospital Follow-Up (TIFFANIE) Allergies No known active allergiesdocumented as of this encounter (statuses as of 07/30/2024) Medications Triamcinolone Acetonide 0.1 % External Ointment (Aristocort)Indic ations:Prurigo Apply 2x daily (or more if itchy instead of scratching) to rash/lesions all over body until resolved 454 g 021 Active Additional Information Patient not taking.Informant: Patient, Reported on 02/12/2024 Adapalene 0.1 % External GelIndications:Ac ne vulgaris Apply topically to affected area. As directed. 15 g 5 021 Active One-A-Day Womens Oral Tablet Take by mouth. Act jane Magnesium 400 MG Oral Tablet 2 tabs daily Active Zinc 50 MG Oral Tablet Take 1 Tablet by mouth in the morning. 11/14/2 023 Active Pantoprazole Sodium 40 MG Oral [...] deficiency anemia,Intestinal postoperative nonabsorption,S/P gastric bypass Per [facility] IV iron anaphylaxis protocol. TO BE ADMINISTERED IN THE EVENT OF ANAPHYLACTIC REACTION 1000 mL Active Additional Information Patient not taking.Informant: Patient, Reported on 11/06/2023 dexAMETHasone Sodium Phosphate 4 MG/ML Injection Solution (Decadron)Indicat ions:Other iron deficiency anemia,Intestinal postoperative nonabsorption,S/P gastric bypass Inject 8 mg intravenously as needed for Anaphylaxis (severe allergic reaction). Per [facility] IV iron anaphylaxis protocol 2 mL Active Additional Information Patient not taking.Informant: Patient, Reported on 11/06/2023 EPINEPHrine (Anaphylaxis) 1 MG/ML Injection SolutionIndicatio ns:Other iron deficiency anemia,Intestinal postoperative nonabsorption,S/P gastric bypass Inject 0.3 mL into a large muscle as needed for Anaphylaxis (severe allergic reaction). Per [facility] IV iron anaphylaxis protocol. May repeat every [...] directed through feeding tube via feeding pump. 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 (5 years old or older) Answer Date of Assessment Author No 11/06/2023 5:53 PM EDGiancarlo Ramirez RN * Do you have difficulty dressing [...] visit for follow up: TIFFANIE Admitted to: [facility], Date: 07/19/2024 Discharged to: Home, Date: [...] PCP) 1. Fever/chills 2. N/V/D 3. Dizziness/lightheadedness Rn VascularNurse Technician of Care interventions/Action Plan: Medication reconciliation and [...] EST Office Visit Gastroenterology, [facility] [address] [place] [address] Shashank Wells CRNP [address] [place] [address] 08/12/2024 3:45 PM EST Imaging Radiology [facility] [place] [phone] 09/11/2024 8:20 AM EDT Telemedicine Nutrition & Weight Management, [place] [address] [place] [address] Addie Ramirez RDN [address] [place], [place] [id number] 09/11/2024 12:40 PM EDT Telemedicine Nutrition & Weight Management, [place] [address] [place] [address] Addie Ramirez RDN [address] [place], [place] [id number] 11/16/2024 9:00 AM EDT Telemedicine Psychiatry, [facility] [address] [place] [address] Robinson Caro CRNP [address] [place] [address] Scheduled Procedures Name Priority Associated Diagnoses Date/Ti [...] 04/20/2020, Additional history exists HbA1c 10/21/2024 10/22/2023, 0 08/2020, 06/30/2013 Lipid Panel 10/21/2028 10/22/2023, 110 [...] the patient have Health Care Power of Theoretical Physics Teacher? Yes, not currently available * Full Code [...] Power of Attor carlos? No Care Teams Sales Representative Aircraft Relationship Specialty Start Date End Date GracielaSeptember ANDREA [place] [address] [place] [address] PCP - General Physician Nursery Manager 01/11/24 documented as of this encounter
--- OUTSIDE RECORDS SUMMARY | 2024-11-05 04:04 | External Medical Summary | Summary of Care ---
Author Name Unknown Organization [facility] Address [address] [place] [address] Phone [phone] Care Team Providers Care Facs Teacher Name Role Phone Terri Owens PA-C Primary Care Provider [phone] Reason for Visit * Reason Onset Date Comments Hospital Follow-Up 07/21/2024 TIFFANIE Encounter Details Date Type Department Care Team (Late st Contact Info) Description 07/21/2024 Telephone Family Practice [facility] [address] [facility] [place] [address] Jacki Drummond, RN Hospital Follow-Up (TIFFANIE) Allergies [...] directed through feeding tube via feeding pump. 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 Fever/chills 2. N/V/D 3. 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 Helper of Care interventions/Action Plan: Medication reconciliation and [...] 08/04/2024 3:30 PM EST Office Visit Gastroenterology, [facility] [address] [address] Shashank Wells CRNP [address] [place] [address] 08/12/2024 3:45 PM EST Imaging Radiology [address] [place] [address] 08/13/2024 1:40 PM EST Office Visit Nutrition & Weight Management, [facility] [address] [place] [address] Emily Og MD [address] [place] [address] 09/11/2024 8:20 AM EDT Telemedicine Nutrition & Weight Management, [place] [address] [place] [address] Addie Ramirez RDN [address], [place] [id number] 09/11/2024 12:40 PM EDT Telemedicine Nutrition & Weight Management, [place] [address] [place] [address] Addie Ramirez RDN [address], [place] [id number] 11/16/2024 9:00 AM EDT Telemedicine Psychiatry, [facility] [address] [place] [address] Robinson Caro CRNP [address] [place] [address] Scheduled Procedures Name Priority Associated Diagnoses Date/Ti [...] the patient have Health Care Power of Switch Box Installer? Yes, not currently available * Full Code [...] Power of Attor carlos? No Care Teams Facs Teacher Relationship Specialty Start Date End Date GracielaSeptember ANDREA [place] [address] [place] [address] PCP - General Physician Dry Clipper Tender 01/11/24 documented as of this encounter
--- OUTSIDE RECORDS SUMMARY | 2024-11-05 04:04 | External Medical Summary | Summary of Care ---
Author Name Unknown Organization [facility] Address [address] [place] [address] Phone [phone] Care Team Providers Care Barrel Header Name Role Phone Terri Owens PA-C Primary Care Provider [phone] Reason for Visit * Reason Onset Date Comments Med Request 07/24/2024 Encounter Details Date Type Department Care Team (Late st Contact Info) Description 07/24/2024 Telephone Family Practice [facility] [address] [place] [address] Terri Owens PA-C [address] [place] [address] Med Request Allergies No known active allergiesdocumented as of this encounter (statuses as of 07/24/2024) Medications Triamcinolone Acetonide 0.1 % External Ointment [...] for further management.. 120 Tablet 1 11/11/19 24 Active B-Complex/Vitamin C Oral Tablet [...] directed through feeding tube via feeding pump. [id number] mL 11:59 PM EST 04/15/20 24 025 Active Hospital, Clinic, or Other Facility Administered Medication Ordered Dose Route Frequency Start Date End Date Status vitamin b-12 (Cyanocobalamin) inj 1,000 mcgIndications:Postgastric surgery syndrome 1000 mcg IM [id number] 10/16/2022 07/20/2025 Active documented as of this encounter (statuses as of 07/24/2024) Active Problems Problem Noted Date Diagnosed Date [...] as of this encounter (statuses as of 07/24/2024) Resolved Problems Problem Noted Date Diagnosed Date Resolved Date Chronic obstructive pulmonary disease 11/15/2021 11/15/2021 Pre-operative examination 11/16/2020 Morbid obesity due to excess calories 10/27/2020 12/18/2021 MEDICATION USE AGREEMENT 05/14/2012 Overview (03/04/2015): Updated 03/04/2015 MD Neli Briceño III's [place] Calculus of gallbladder with out mention of cholecystitis or obstruction 11/16/2020 documented as of this encounter (statuses as of 07/24/2024) Immunizations Name Administration Dates Next Due COVID-19 [...] 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 Not on file Not [...] 11/06/2023 5:53 PM EDGiancarlo Ramirez RN * Because of a physical, mental, [...] 12:00 PM EST Office Visit Family Practice [facility] [place] [address] [place] [address] Terri Owens PA-C [address] [place] [address] 09/11/2024 8:20 AM EDT Telemedicine Nutrition & Weight Management, [place] [address] [place] [address] Addie Ramirez RDN [address] [place] [address] 09/11/2024 12:40 PM EDT Telemedicine Nutrition & Weight Management, [place] [address] [place] [address] Addie Ramirez RDN [address] [place] [address] 11/16/2024 9:00 AM EDT Telemedicine Psychiatry, [facility] [address] [place] [address] Robinson Caro CRNP [address] [place] [address] Scheduled Procedures Name Priority Associated Diagnoses Date/Ti [...] the patient have Health Care Power of Coil Machine Supervisor? Yes, not currently available * Full [...] Power of Attor carlos? No Care Teams Barrel Header Relationship Specialty Start Date End Date GracielaSeptember Lorenzo, ANDREA [address] [facility] [place] [address] PCP - General Physician Certified Medical Technician Assistant 01/11/24 documented as of this encounter
[2024-11-05] MEDS: D5W AND 1/2NSS 1,000 ML IV SCH (04:11)
[2024-11-05] MEDS: HEPARIN SOD 5,000 UNIT/0.5 ML VIAL SQ SCH (05:18)
[2024-11-05 07:02] LABS: Basophils # (auto) 0.01 K/uL (0.00-0.20); Basophils % (auto) 0.1 %; Hematocrit (blood only) 41.1 % (37.0-47.0); Hemoglobin 14.3 g/dl (12.0-16.0); Immature Granulocytes # (auto) 0.05 K/uL (0.01-0.20); Immature Granulocytes % (auto) 0.4 %; Lymphocytes # (auto) 1.08 K/uL (1.20-3.40); Lymphocytes % (auto) 9.3 %; Mean Corpuscular Hemoglobin 30.3 pg (25.0-34.0); Mean Corpuscular Hgb Conc 34.8 g/dL (32.0-36.0); Mean Corpuscular Volume 87.1 fL (80.0-100.0); Monocytes % (auto) 7.7 %; Neutrophils # (auto) 9.58 K/uL (1.40-6.50); Neutrophils % (auto) 82.5 %; Platelet Count 249 K/uL (130-400); RDW Standard Deviation 38.5 fL (36.4-46.3); Red Blood Count 4.72 M/uL (4.20-5.40); White Blood Count 11.62 K/ul (4.8-10.8)
[2024-11-05] MEDS: CHECK SCOPOLAMINE PATCH PLACEMENT SCH (07:16)
[2024-11-05] MEDS: ARIPiprazole 2 MG TAB PO SCH (07:16)
[2024-11-05] MEDS: SERTRALINE HCL 100 MG TABLET PO SCH (07:16)
[2024-11-05] MEDS: ACETAMINOPHEN 1,000 MG/100 ML VIAL IV PRN (07:21)
[2024-11-05 07:22] LABS: BUN Creatinine Ratio 25.3 (10-20); Calcium 9.7 mg/dl (8.6-10.3); Creatinine Clr Calc Pharmacy 70.9 ml/min; Magnesium 1.8 mg/dl (1.7-2.4); Potassium 3.9 mmol/L (3.5-5.1)
[2024-11-05] MEDS: clonazePAM 1 MG TAB PO SCH (08:13)
[2024-11-05] MEDS: ONDANSETRON INJ 2 MG/ML 2 ML VIAL IV PRN (08:19)
[2024-11-05] MEDS: FAMOTIDINE 20MG IV PUSH 20 MG/5 ML SYR IV SCH (08:49)
[2024-11-05 10:27] LABS: Estimated Average Glucose 103 mg/dl; Hemoglobin A1C 5.2 % (4.5-5.6)
[2024-11-05] MEDS: BACLOFEN 20 MG TAB PO STA (10:50)
[2024-11-05] MEDS: KETOROLAC TROMETHAMINE 15 MG/ML VIAL IV ONE (14:06)
--- NOTE | 2024-11-05 14:17 | 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 Note ---
Date of Service: November 05, 2024 admitted overnight for intractable nausea and vomiting reports symptoms seem precipitated by hiccups and anxiety presented to bedside--reports increased exertional activities and stressors Agreed to psych consult given this central cause of nausea likely, exacerbated with anxiety as well as ongoing food avoidance behaviors. Patient agreed Exam notable for depressed mood, CV RRR, lung CTAB, thin, frail woman #Intractable Nausea & Vomiting #Central [place] #Post stroke syndrome -Trial of baclofen for hiccups -Continue prn antiemetics -Discussion with psych for other pharmacologic augments to current regimen rest of plan per hp
--- NOTE | 2024-11-05 16:07 | Psychiatric Consultation ---
Date of Consultation November 05, 2024 Impression / Recommendations Impression Diagnostically unclear if anxiety is directly contributing to periods of nausea or vomiting though it does seem that they often go hand in hand. She likes the recently started abilify and encouragingly is working with an outpatient psychiatrist who she likes. She is interested in outpatient therapy and I think this could be very beneficial especially if there can be some focus on mindfulness work and techniques to lessen anxiety that may help her cope with distress from her physical symptoms. Given history of possible EPS-type side effect from olanzapine would continue with abilify, sertraline, Klonopin and trazodone. No current symptoms of a major mood episode and denies current SI and future-oriented so acute risk of self- harm is low. Chronic risk is moderate given chronic illness, physical pain. If cannabis offers relief would wonder if there may be a role for dronabinol or an alternative emergency IM or liquid medication or option that could be placed in her PEG tube for episodes of intense nausea that potentially could de- escalate symptoms before they spiral to the point of being unmanageable. Overall, I spent a total of 60 minutes with this case including review of chart records, review of labwork, review of EKG QTc, direct evaluation of the patient at bedside, counseling the patient, discussion of the patient with the hospitalist provider, discussion with the psychiatric liason during clinical rounds and documentation in the electronic health record. (1) Intractable nausea and vomiting: (2) History of hemorrhagic cerebrovascular accident (CVA) with residual deficit: (3) Anxiety: (4) Depression: Plan -Psychiatric liason will attempt to set her up with outpatient therapy services (she prefers teletherapy option) -Psych liason to gather further collateral from her -Would continue current psychiatric medications at this time, she and her outpatient psychiatrist may want to consider further titration of her abilify if this continues to be beneficial and well tolerated but if episodes of anxiety persist. Psych History Identifying Data 54-year-old female with past medical history significant for prediabetes, history of hyperkalemia, history of sleep apnea, history of severe protein energy malnutrition, history of nausea vomiting, history of post gastric surgery syndrome, GERD, depression, history of PE in 2018 currently not on anticoagulation, history of Maryuri-en-Y gastric bypass in 2020, history of left basal ganglia hemorrhagic CVA requiring craniectomy in October 2022 with eventual cranioplasty in March 2023 comes because of persistent nausea and vomiting and abdominal pain. Psychiatry consulted for recommendations for anxiety. Chief Complaint "That was a nightmare". History of Present Illness Aleah was previously seen by the psychiatry consult service in March 2024. Since that time some of her psychiatric medications have changed and she is now prescribed sertraline 200mg daily, abilify 2mg daily, Klonopin 1mg daily and trazodone 50mg HS. She was admitted for severe nausea and vomiting. She reports when these episodes start they are almost impossible to get under control without coming to the [facility]. Today she was given toradol IV and she feels that after this she got significant relief. Currently she denies any anxiety and feels her physical symptoms are "much better". Sometimes she can develop severe anxiety and this can sometimes set off nausea and vomiting but other times she feels the nausea is set off and then subsequently she develops the anxiety. She hasn't noticed any pattern to her cannabis use via vaping and nausea and no paradoxical reaction. Reports twice weekly vaping use. She reports that abilify was started recently by her new outpatient psychiatrist via [facility] and that this seems to be very helpful for her anxiety so far. She will continue to see this provider monthly and she's interested in therapy. She notes of the major sources of her anxiety is her memory issues since her hemorrhagic stroke. She struggles at times to recall words and can then lose her train of thought. Denies any current SI. Last had thoughts of SI without plan nor intent about a month ago. Denies any access to guns at home. per chart review has previously been on mirtazapine, had hand twitching with olanzapine in the past, Seroquel prn. Allergies Allergy/AdvReac Type Severity Reaction Status Date / Time No Known Allergies Allergy Verified 11/04/24 23:00 Home Medications Medication Instructions Recorded Confirmed Type ondansetron 4 mg disintegrating 4 mg PO Q8H PRN Nausea And Vomiting 04/27/24 11/04/24 History tablet sertraline 100 mg tablet 200 mg PO DAILY 05/01/24 11/04/24 History clonazepam 1 mg tablet 1 mg PO DAILY 06/27/24 11/04/24 History acetaminophen 325 mg tablet 650 mg PO DIRECTED PRN PAIN, 11/04/24 11/04/24 History (Tylenol) MILD-MODERATE aripiprazole 2 mg tablet 2 mg PO QAM 11/04/24 11/04/24 History cyanocobalamin (vitamin B-12) 1,000 mcg subcut .Q12WKS 11/04/24 11/04/24 History 1,000 mcg/mL injection solution epinephrine 0.3 mg/0.3 mL 0.3 mg IM DIRECTED PRN Allergic 11/04/24 11/04/24 History injection, auto-injector (EpiPen) Reaction lansoprazole 30 mg delayed 30 mg PO QAM 11/04/24 11/04/24 History release,disintegrating tablet (Prevacid SoluTab) mhtlvqxv-lww-dxzk-FA-Ca carb-vit K 1 tab PO DAILY 11/04/24 11/04/24 History 18 mg iron-400 mcg-500 mg tablet (Women's One Daily) nutritional supplements 105 ea feeding tube DIRECTED 11/04/24 11/04/24 History prochlorperazine 25 mg rectal 25 mg CA Q12H PRN NAUSEA/VOMITING 11/04/24 11/04/24 History suppository (Compazine) prochlorperazine maleate 5 mg 5 mg PO Q6H PRN NAUSEA/VOMITING 11/04/24 11/04/24 History tablet (Compazine) promethazine 25 mg tablet 25 mg PO Q6H PRN NAUSEA/VOMITING 11/04/24 11/04/24 History scopolamine base 1 mg over 3 days 1 mg transdermal .Q72HRS 11/04/24 11/04/24 History transdermal patch trazodone 50 mg tablet 50 mg PO HS 11/04/24 11/04/24 History Patient History Medical History Pulmonary embolism Endometriosis Hemorrhagic stroke Surgical History History of Maryuri-en-Y gastric bypass H/O wisdom tooth extraction History of partial colectomy History of hysterectomy Hx of cholecystectomy History of appendectomy H/O craniotomy Social History Smoking Status: Never smoker Tobacco Type: E-cigarettes / Vaping Second Hand Exposure: No; Do You Dip or Chew Tobacco: No; Tobacco Cessation Education Requested by Patient: No Hx Alcohol Use: No Hx Substance Use: Yes Last Used Substance: Days (ago) Last Used Substance Other:: 2 months ago Substance Use Type Other:: medical marijuana Preferred Language: Citizen Of [place] 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 Ability: Effective Cv/Cvn Cv Tsc System Operator Required: No Beliefs That Will Affect Care: None Current Living Situation: Spouse Other Information That Helps Us Care for You: No Feels Safe at Home: Yes Safety Concerns: Feels Safe At This Time Assistive Devices: None Assistive Devices Comment: Patient states she uses a walker at home at times. Physical Exam Vital Signs (Past 24 Hours): Last Vital Signs Temp 36.8 C 11/05/24 15:17 Pulse 73 11/05/24 15:17 Resp 18 11/05/24 15:17 BP 102/67 11/05/24 15:17 Pulse Ox 94 11/05/24 15:17 O2 Del Method Room Air 11/05/24 15:17 Results & Data (PSY) Medications Administered Aripiprazole (Aripiprazole 2 Mg Tab) 2 mg PO QAM CASANDRA Stop: 12/05/24 08:59 Last Admin: 11/05/24 07:16 Dose: 2 mg Documented By: AYAN Clonazepam (Clonazepam 1 Mg Tab) 1 mg PO DAILY CASANDRA Stop: 12/05/24 08:59 Last Admin: 11/05/24 08:13 Dose: 1 mg Documented By: AYAN Heparin Sodium (Porcine) (Heparin Sod 5,000 Unit/0.5 Ml Vial) 5,000 units SQ Q8 CASANDRA Stop: 12/05/24 05:59 Last Admin: 11/05/24 14:06 Dose: 5,000 units Documented By: Admin: 11/05/24 05:18 Dose: 5,000 units Documented By: TKB Dextrose/Sodium Chloride (D5w And 1/2nss) 1,000 mls @ 100 mls/hr IV .Q10H CASANDRA Stop: 11/08/24 03:41 Last Admin: 11/05/24 14:10 Dose: 100 mls/hr Documented By: Infusion: 11/05/24 14:10 Dose: Infused Documented By: Admin: 11/05/24 04:11 Dose: 100 mls/hr Documented By: FR Acetaminophen (Ofirmev) 1,000 mg in 100 mls @ 400 mls/hr IV Q8H PRN PRN Reason: Pain or Fever Stop: 11/08/24 03:41 Last Infusion: 11/05/24 07:36 Dose: Infused Documented By: Admin: 11/05/24 07:21 Dose: 400 mls/hr Documented By: AYAN Famotidine (Pepcid 20mg Iv Push) 20 mg in 5 mls @ 2.5 mls/min IV Q12H CASANDRA Stop: 12/05/24 08:59 Last Admin: 11/05/24 08:49 Dose: 2.5 mls/min Documented By: AYAN Miscellaneous (Check Scopolamine Patch Placement) 1 each N/A QS CASANDRA Stop: 12/05/24 07:59 Last Admin: 11/05/24 07:16 Dose: 1 each Documented By: AYAN Ondansetron HCl (Ondansetron Inj 2 Mg/Ml 2 Ml Vial) 4 mg IV Q6H PRN PRN Reason: Nausea Stop: 12/05/24 03:41 Last Admin: 11/05/24 08:19 Dose: 4 mg Documented By: AYAN Sertraline HCl (Sertraline Hcl 100 Mg Tablet) 200 mg PO DAILY CASANDRA Stop: 12/05/24 08:59 Last Admin: 11/05/24 07:16 Dose: 200 mg Documented By: AYAN Coding Level of Care Code 58467 IN/OBS CONSULT LVL 4,60M Diagnoses Intractable nausea and vomiting R11.2 History of hemorrhagic cerebrovascular accident (CVA) with residual deficit I69.30 Anxiety F41.9 Depression F32.9
[2024-11-05] MEDS: traZODone HCL 50 MG TAB PO SCH (19:49)
[2024-11-06] MEDS: PROMETHAZINE 12.5 MG/50.5 ML BAG IV PRN (01:07)
[2024-11-06] MEDS: KETOROLAC TROMETHAMINE 15 MG/ML VIAL IV PRN (10:07)
--- NOTE | 2024-11-06 11:06 | Hospitalist Progress Note ---
Date of Service November 06, 2024 Assessment & Plan (1) Intractable nausea and vomiting: Plan: Ms Marie is a 54-year-old female with past medical history significant for prediabetes, history of hyperkalemia, history of sleep apnea, history of severe protein energy malnutrition, history of nausea vomiting, history of post gastric surgery syndrome, GERD, depression, history of PE in 2018 currently not on anticoagulation, history of Maryuri-en-Y gastric bypass in 2020, history of left basal ganglia hemorrhagic CVA requiring craniectomy in October 2022 with eventual cranioplasty in March 2023 admitted for intractable nausea and vomiting Patient is s/p PEG due to ongoing food avoidance behaviors and malnutrition. Patient with episodic nausea and vomiting that is possibly triggered by stress/anxiety as reported by . She uses peg for over night nutrition, tolerating only about 3 bottles of protein shake. During these episodes, she notes the onset of hiccups then nausea and abdominal pain. Patient evaluated by Psychiatry who recommends continuing home psych meds at this time. Will consider dronabinol for acute episodes. Symptoms seemingly much improved today--plan to start feeds this evening for dispo planning--if tolerated possible d/c tomorrow Attempted to call for updated this afternoon, will trial again. #Intractable nausea and vomiting #Central nausea and vomiting s/p stroke, possible cyclic vomiting syndrome History of nausea and vomiting in the past CT abdomen pelvis no acute findings UA is unremarkableDrug screen positive for marijuana Psych consulted for consideration of TCA, however, given other agents started at this time felt to be better to titrate those medications prior to additional agent Will consider dronabinol given antiemetic property and appetite stimulant trial bentyl for cramping/pain sensations in abdomen #Cough resolved Chest x-ray okay Monitor #depression and anxiety Continue home medications #GERD continue IV Pepcid for now #Protein calorie malnutrition start tube feeds recessing machine operator consult #Mild cognitive impairment #History of hemorrhagic CVA CTM #History of prediabetes a1c 5.2% DVT prophylaxis Heparin subcu Disposition Observation medical floor possible dispo tomorrow Admission and Anticipated Discharge Date Admission Date: November 05, 2024 Subjective reports abdominal cramping, but improved with toradol states nausea is improving and is ready to trial tube feeds this evening Physical Exam Constitutional: WD/WN, vitals as above Respiratory: normal respiratory effort, lungs clear to auscultation Cardiovascular: RRR, no murmur, no edema Neurologic: PERRL, EOMI, accommodation nl, no face palsy, no dysarthria Results & Data Results & Data Vital Signs (Past 12 Hours) Vital Signs Temp Pulse Resp BP Pulse Ox O2 Del Method 11/06/24 08:04 36.9 C 96 H 16 112/69 91 Room Air Medications Administered Home Medications Medication Instructions Recorded Confirmed Last Taken ondansetron 4 mg disintegrating 4 mg PO Q8H PRN Nausea And Vomiting 04/27/24 11/04/24 06/26/24 tablet sertraline 100 mg tablet 200 mg PO DAILY 05/01/24 11/04/24 11/04/24 clonazepam 1 mg tablet 1 mg PO DAILY 06/27/24 11/04/24 11/04/24 acetaminophen 325 mg tablet 650 mg PO DIRECTED PRN PAIN, 11/04/24 11/04/24 Unknown (Tylenol) MILD-MODERATE aripiprazole 2 mg tablet 2 mg PO QAM 11/04/24 11/04/24 11/04/24 cyanocobalamin (vitamin B-12) 1,000 mcg subcut .Q12WKS 11/04/24 11/04/24 Unknown 1,000 mcg/mL injection solution epinephrine 0.3 mg/0.3 mL 0.3 mg IM DIRECTED PRN Allergic 11/04/24 11/04/24 Unknown injection, auto-injector (EpiPen) Reaction lansoprazole 30 mg delayed 30 mg PO QAM 11/04/24 11/04/24 11/04/24 release,disintegrating tablet (Prevacid SoluTab) dihliubp-pir-xhqk-FA-Ca carb-vit K 1 tab PO DAILY 11/04/24 11/04/24 11/04/24 18 mg iron-400 mcg-500 mg tablet (Women's One Daily) nutritional supplements 105 ea feeding tube DIRECTED 11/04/24 11/04/24 Unknown prochlorperazine 25 mg rectal 25 mg OR Q12H PRN NAUSEA/VOMITING 11/04/24 11/04/24 Unknown suppository (Compazine) prochlorperazine maleate 5 mg 5 mg PO Q6H PRN NAUSEA/VOMITING 11/04/24 11/04/24 Unknown tablet (Compazine) promethazine 25 mg tablet 25 mg PO Q6H PRN NAUSEA/VOMITING 11/04/24 11/04/24 Unknown scopolamine base 1 mg over 3 days 1 mg transdermal .Q72HRS 11/04/24 11/04/24 11/04/24 transdermal patch trazodone 50 mg tablet 50 mg PO HS 11/04/24 11/04/24 11/03/24 Active Medications Generic Name Dose Route Start Last Admin Trade Name Freq PRN Reason Stop Dose Admin Aripiprazole 2 mg 11/05/24 09:00 11/06/24 10:51 Aripiprazole 2 Mg Tab PO 12/05/24 08:59 2 mg QAM CASANDRA Administration Clonazepam 1 mg 11/05/24 09:00 11/06/24 10:51 Clonazepam 1 Mg Tab PO 12/05/24 08:59 1 mg DAILY CASANDRA Administration Heparin Sodium (Porcine) 5,000 units 11/05/24 06:00 11/06/24 05:46 Heparin Sod 5,000 Unit/0.5 Ml Vial SQ 12/05/24 05:59 5,000 units Q8 CASADNRA Administration Dextrose/Sodium Chloride 1,000 mls @ 100 mls/hr 11/05/24 03:42 11/06/24 10:51 D5w And 1/2nss IV 11/08/24 03:41 100 mls/hr .Q10H CASANDRA Administration Acetaminophen 1,000 mg in 100 mls @ 400 mls/hr 11/05/24 03:42 11/06/24 08:18 Ofirmev IV 11/08/24 03:41 Infused Q8H PRN Infusion Pain or Fever Promethazine HCl 12.5 mg in 50.5 mls @ 202 mls/hr 11/05/24 03:42 11/06/24 09:48 Phenergan IV 12/05/24 03:41 Infused Q6H PRN Infusion Nausea And Vomiting Famotidine 20 mg in 5 mls @ 2.5 mls/min 11/05/24 09:00 11/06/24 09:20 Pepcid 20mg Iv Push IV 12/05/24 08:59 2.5 mls/min Q12H CASANDRA Administration Ketorolac Tromethamine 15 mg 11/06/24 09:59 11/06/24 10:07 Ketorolac Tromethamine 15 Mg/Ml Vial IV 11/11/24 09:58 15 mg Q8H PRN Administration Pain Miscellaneous 1 each 11/05/24 08:00 11/06/24 07:50 Check Scopolamine Patch Placement N/A 12/05/24 07:59 1 each QS CASANDRA Administration Ondansetron HCl 4 mg 11/05/24 03:42 11/06/24 05:46 Ondansetron Inj 2 Mg/Ml 2 Ml Vial IV 12/05/24 03:41 4 mg Q6H PRN Administration Nausea Sertraline HCl 200 mg 11/05/24 09:00 11/06/24 10:51 Sertraline Hcl 100 Mg Tablet PO 12/05/24 08:59 200 mg DAILY CASANDRA Administration Trazodone HCl 50 mg 11/05/24 21:00 11/05/24 19:49 Trazodone Hcl 50 Mg Tab PO 12/05/24 20:59 50 mg HS CASANDRA Administration
[2024-11-06] MEDS ORDERED: PATIENT'S OWN ENTERAL FEEDING GT SCH (12:45)
[2024-11-06] MEDS: DICYCLOMINE HCL 10 MG CAP PO SCH (13:32)
[2024-11-06] MEDS: TUBE FEEDING WATER FLUSH GT SCH (14:52)
[2024-11-06] MEDS: NUTREN LIQD 2.0 1,000 ML BAG GT SCH (23:12)
[2024-11-07] MEDS: HYDROmorphone INJ 0.5 MG/0.5 ML SYR IV STA (03:51)
[2024-11-07 07:21] LABS: Hematocrit (blood only) 41.6 % (37.0-47.0); Hemoglobin 14.2 g/dl (12.0-16.0); Mean Corpuscular Hemoglobin 30.1 pg (25.0-34.0); Mean Corpuscular Hgb Conc 34.1 g/dL (32.0-36.0); Mean Corpuscular Volume 88.1 fL (80.0-100.0); Mean Platelet Volume 11.3 fL (9.4-12.4); Platelet Count 221 K/uL (130-400); RDW Coefficient of Variation 12.1 % (11.5-14.5); RDW Standard Deviation 39.3 fL (36.4-46.3); Red Blood Count 4.72 M/uL (4.20-5.40); White Blood Count 9.85 K/ul (4.8-10.8)
[2024-11-07 07:42] LABS: BUN Creatinine Ratio 14.7 (10-20); Calcium 9.3 mg/dl (8.6-10.3); Creatinine Clr Calc Pharmacy 70.9 ml/min; Magnesium 1.7 mg/dl (1.7-2.4); Phosphorus 3.4 mg/dl (2.5-4.9); Potassium 3.3 mmol/L (3.5-5.1)
[2024-11-07] MEDS: POTASSIUM CHLORIDE / WTR 10 MEQ/100 ML PLCT IV SCH (09:12)
[2024-11-07] MEDS: MAGNESIUM SULFATE / D5W 1 GM/100 ML BAG IV SCH (09:12)
[2024-11-07] MEDS: SCOPOLAMINE 1 MG/72 HR TDSY PATCH TD SCH (09:40)
[2024-11-07] MEDS: MECLIZINE 12.5 MG TAB PO PRN (14:00)
[2024-11-07] MEDS: droNABinol 2.5 MG CAP PO SCH (14:08)
[2024-11-07] MEDS: DOCUSATE SODIUM/SENNA 50/8.6MG TAB PO SCH (14:09)
[2024-11-07] MEDS: LIDOCAINE 5% 1 PATCH TD STA (14:16)
--- NOTE | 2024-11-07 14:54 | Hospitalist Progress Note ---
Date of Service November 07, 2024 Assessment & Plan (1) Intractable nausea and vomiting: Plan: Ms Marie is a 54-year-old female with past medical history significant for prediabetes, history of hyperkalemia, history of sleep apnea, history of severe protein energy malnutrition, history of nausea vomiting, history of post gastric surgery syndrome, GERD, depression, history of PE in 2018 currently not on anticoagulation, history of Maryuri-en-Y gastric bypass in 2020, history of left basal ganglia hemorrhagic CVA requiring craniectomy in October 2022 with eventual cranioplasty in March 2023 admitted for intractable nausea and vomiting Patient is s/p PEG due to ongoing food avoidance behaviors and malnutrition. Patient with episodic nausea and vomiting that is possibly triggered by stress/anxiety as reported by . She uses peg for over night nutrition, tolerating only about 3 bottles of protein shake. During these episodes, she notes the onset of hiccups then nausea and abdominal pain. Patient evaluated by Psychiatry who recommends continuing home psych meds at this time. Will consider dronabinol for acute episodes. Patient with more anxiety today and nausea--working for sustainable discharge plan. Discussed trial of marinol 2.5 mg bid--this would bring possible pain control, anxiety relief, and nausea treatment--as well as stimulate appetite. Plan for palliative care on Saturday with possible discharge thereafter if good team approach/plan developed to help prevent readmissions and offer support and "contingency" plan for acute spell management as an outpatient . #Intractable nausea and vomiting #Central nausea and vomiting s/p stroke, possible cyclic vomiting syndrome History of nausea and vomiting in the past CT abdomen pelvis no acute findings UA is unremarkableDrug screen positive for marijuana Psych consulted for consideration of TCA, however, given other agents started at this time felt to be better to titrate those medications prior to additional agent continue bentyl for cramping/pain sensations in abdomen, seems to be of modest help Lidocaine patch to abdominal wall were skin seems to hurt Start dronabinol 2.5mg bid #Cough resolved Chest x-ray okay Monitor #depression and anxiety Continue home medications #GERD continue IV Pepcid for now #Protein calorie malnutrition start tube feeds human relations manager consult #Mild cognitive impairment #History of hemorrhagic CVA CTM #History of prediabetes a1c 5.2% DVT prophylaxis Heparin subcu Disposition Observation medical floor possible dispo Saturday I spent a total of 65 minutes coordinating, documenting, and providing care for this patient excluding time spent in the performance of separately billed services. Admission and Anticipated Discharge Date Admission Date: November 05, 2024 Subjective continued abdominal pain and nausea, able to tolerate some of her feed in the evenings at bedside--discussed a different approach to management with palliative care explaining that the team often follows patients with chronic conditions and the symptoms that are often difficult to control Patient and agree that there is an emphasis on quality of life that they do not feel they are getting routinely with the patient's complex health history patient reporting ongoing anxiety, tenderness to abdomen and nausea Physical Exam Constitutional: frail, seeming improvement in complexion noted Respiratory: normal respiratory effort, lungs clear to auscultation Cardiovascular: RRR, no murmur, no edema Gastrointestinal (Abdomen): tenderness mostly noted to superficial touch along left abdominal wall Results & Data Results & Data Vital Signs (Past 12 Hours) Vital Signs Temp Pulse Resp BP Pulse Ox O2 Del Method 11/07/24 11:49 36.7 C 84 16 138/87 95 Room Air 11/07/24 07:47 36.7 C 70 16 110/77 97 Room Air Laboratory Results Short CBC 11/07/24 Range/Units 06:58 WBC 9.85 (4.8-10.8) K/ul Hgb 14.2 (12.0-16.0) g/dl Hct 41.6 (37.0-47.0) % Plt Count 221 (130-400) K/uL BMP 11/07/24 06:58 Sodium 137 Potassium 3.3 L Chloride 100 Carbon Dioxide 33 H BUN 11 Creatinine 0.75 Glucose 141 H Calcium 9.3 Medications Administered Home Medications Medication Instructions Recorded Confirmed Last Taken ondansetron 4 mg disintegrating 4 mg PO Q8H PRN Nausea And Vomiting 04/27/24 11/04/24 06/26/24 tablet sertraline 100 mg tablet 200 mg PO DAILY 05/01/24 11/04/24 11/04/24 clonazepam 1 mg tablet 1 mg PO DAILY 06/27/24 11/04/24 11/04/24 acetaminophen 325 mg tablet 650 mg PO DIRECTED PRN PAIN, 11/04/24 11/04/24 Unknown (Tylenol) MILD-MODERATE aripiprazole 2 mg tablet 2 mg PO QAM 11/04/24 11/04/24 11/04/24 cyanocobalamin (vitamin B-12) 1,000 mcg subcut .Q12WKS 11/04/24 11/04/24 Unknown 1,000 mcg/mL injection solution epinephrine 0.3 mg/0.3 mL 0.3 mg IM DIRECTED PRN Allergic 11/04/24 11/04/24 Unknown injection, auto-injector (EpiPen) Reaction lansoprazole 30 mg delayed 30 mg PO QAM 11/04/24 11/04/24 11/04/24 release,disintegrating tablet (Prevacid SoluTab) vrgyjwhi-kzy-xgoh-FA-Ca carb-vit K 1 tab PO DAILY 11/04/24 11/04/24 11/04/24 18 mg iron-400 mcg-500 mg tablet (Women's One Daily) nutritional supplements 105 ea feeding tube DIRECTED 11/04/24 11/04/24 Unknown prochlorperazine 25 mg rectal 25 mg [place] Q12H PRN NAUSEA/VOMITING 11/04/2401/22 Unknown suppository (Compazine) prochlorperazine maleate 5 mg 5 mg PO Q6H PRN NAUSEA/VOMITING 11/04/24 11/04/24 Unknown tablet (Compazine) promethazine 25 mg tablet 25 mg PO Q6H PRN NAUSEA/VOMITING 11/04/24 11/04/24 Unknown scopolamine base 1 mg over 3 days 1 mg transdermal .Q72HRS 11/04/24 11/04/24 11/04/24 transdermal patch trazodone 50 mg tablet 50 mg PO HS 11/04/24 11/04/24 11/03/24 Active Medications Generic Name Dose Route Start Last Admin Trade Name Roberto PRN Reason Stop Dose Admin Aripiprazole 2 mg 11/05/24 09:00 11/07/24 09:23 Aripiprazole 2 Mg Tab PO 12/05/24 08:59 2 mg QAM CASANDRA Administration Clonazepam 1 mg 11/05/24 09:00 11/07/24 09:23 Clonazepam 1 Mg Tab PO 12/05/24 08:59 1 mg DAILY CASANDRA Administration Dicyclomine HCl 10 mg 11/06/24 13:00 11/07/24 12:20 Dicyclomine Hcl 10 Mg Cap PO 12/06/24 12:59 10 mg QID CASANDRA Administration Dronabinol 2.5 mg 11/07/24 13:55 11/07/24 14:08 Dronabinol 2.5 Mg Cap PO 12/07/24 13:54 2.5 mg BID CASANDRA Administration Heparin Sodium (Porcine) 5,000 units 11/05/24 06:00 11/07/24 13:18 Heparin Sod 5,000 Unit/0.5 Ml Vial SQ 12/05/24 05:59 5,000 units Q8 CASANDRA Administration Dextrose/Sodium Chloride 1,000 mls @ 100 mls/hr 11/05/24 03:42 11/07/24 05:30 D5w And 1/2nss IV 11/08/24 03:41 100 mls/hr .Q10H CASANDRA Administration Acetaminophen 1,000 mg in 100 mls @ 400 mls/hr 11/05/24 03:42 11/07/24 01:15 Ofirmev IV 11/08/24 03:41 Infused Q8H PRN Infusion Pain or Fever Promethazine HCl 12.5 mg in 50.5 mls @ 202 mls/hr 11/05/24 03:42 11/07/24 14:00 Phenergan IV 12/05/24 03:41 25 mls/hr Q6H PRN Administration Nausea And Vomiting Famotidine 20 mg in 5 mls @ 2.5 mls/min 11/05/24 09:00 11/07/24 09:40 Pepcid 20mg Iv Push IV 12/05/24 08:59 2.5 mls/min Q12H CASANDRA Administration Ketorolac Tromethamine 15 mg 11/06/24 09:59 11/07/24 07:30 Ketorolac Tromethamine 15 Mg/Ml Vial IV 11/11/24 09:58 15 mg Q8H PRN Administration Pain Meclizine HCl 12.5 mg 11/07/24 13:24 11/07/24 14:00 Meclizine 12.5 Mg Tab PO 12/07/24 13:23 12.5 mg Q6H PRN Administration Dizziness or Vertigo Miscellaneous 1 each 11/07/24 08:59 11/07/24 09:19 Remove Transderm-Scop Patch N/A 12/07/24 08:58 Not Given Q72H CASANDRA Miscellaneous 1 each 11/05/24 08:00 11/07/24 07:33 Check Scopolamine Patch Placement N/A 12/05/24 07:59 Not Given QS CASANDRA Nutritional Formula 0 ml 11/06/24 20:00 11/06/24 23:12 Nutren Liqd 2.0 1,000 Ml Bag GT 12/06/24 19:59 1,000 ml .See Protocol CASANDRA Administration Protocol Ondansetron HCl 4 mg 11/05/24 03:42 11/07/24 09:40 Ondansetron Inj 2 Mg/Ml 2 Ml Vial IV 12/05/24 03:41 4 mg Q6H PRN Administration Nausea Scopolamine 1 patch 11/07/24 09:00 11/07/24 09:40 Scopolamine 1 Mg/72 Hr Tdsy Patch TD 12/07/24 08:59 1 patch Q72H CASANDRA Administration Senna/Docusate Sodium 1 tab 11/07/24 14:00 11/07/24 14:09 Docusate Sodium/Senna 50/8.6mg Tab PO 12/07/24 13:59 1 tab QAM CASANDRA Administration Sertraline HCl 200 mg 11/05/24 09:00 11/07/24 09:23 Sertraline Hcl 100 Mg Tablet PO 12/05/24 08:59 200 mg DAILY CASANDRA Administration Sterile Water 125 ml 11/06/24 14:00 11/07/24 14:09 Tube Feeding Water Flush GT 12/06/24 13:59 125 ml Q4H CASANDRA Administration Trazodone HCl 50 mg 11/05/24 21:00 11/06/24 22:19 Trazodone Hcl 50 Mg Tab PO 12/05/24 20:59 50 mg HS CASANDRA Administration
[2024-11-08 08:34] LABS: BUN Creatinine Ratio 13.1 (10-20); Calcium 9.3 mg/dl (8.6-10.3); Creatinine Clr Calc Pharmacy 87.2 ml/min; Potassium 3.5 mmol/L (3.5-5.1)
[2024-11-08 12:23] LABS: Marijuana Quant, GCMS Urine >5000 ng/mL (<5)
--- NOTE | 2024-11-08 14:14 | Hospitalist Progress Note ---
Date of Service November 08, 2024 Assessment & Plan (1) Intractable nausea and vomiting: Plan: Ms Marie is a 54-year-old female with past medical history significant for prediabetes, history of hyperkalemia, history of sleep apnea, history of severe protein energy malnutrition, history of nausea vomiting, history of post gastric surgery syndrome, GERD, depression, history of PE in 2018 currently not on anticoagulation, history of Maryuri-en-Y gastric bypass in 2020, history of left basal ganglia hemorrhagic CVA requiring craniectomy in October 2022 with eventual cranioplasty in March 2023 admitted for intractable nausea and vomiting Patient is s/p PEG due to ongoing food avoidance behaviors and malnutrition. Patient with episodic nausea and vomiting that is possibly triggered by stress/anxiety as reported by . She uses peg for over night nutrition, tolerating only about 3 bottles of protein shake. During these episodes, she notes the onset of hiccups then nausea and abdominal pain. Patient evaluated by Psychiatry who recommends continuing home psych meds at this time. Will consider dronabinol for acute episodes. Patient with more anxiety today and nausea--working for sustainable discharge plan. Discussed trial of marinol 2.5 mg bid--this would bring possible pain control, anxiety relief, and nausea treatment--as well as stimulate appetite. Plan for palliative care on Saturday with possible discharge thereafter if good team approach/plan developed to help prevent readmissions and offer support and "contingency" plan for acute spell management as an outpatient . #Intractable nausea and vomiting #Central nausea and vomiting s/p stroke, possible cyclic vomiting syndrome History of nausea and vomiting in the past CT abdomen pelvis no acute findings UA is unremarkableDrug screen positive for marijuana Psych consulted for consideration of TCA, however, given other agents started at this time felt to be better to titrate those medications prior to additional agent continue bentyl for cramping/pain sensations in abdomen, seems to be of modest help Lidocaine patch to abdominal wall were skin seems to hurt continue dronabinol 2.5mg bid #Cough resolved Chest x-ray okay Monitor #depression and anxiety Continue home medications #GERD continue IV Pepcid for now #Protein calorie malnutrition start tube feeds 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 Admission and Anticipated Discharge Date Admission Date: November 07, 2024 Subjective NAEO reports feeling improved--noting some marginal change with the marinol so far Physical Exam Constitutional: WD/WN, vitals as above Respiratory: normal respiratory effort, lungs clear to auscultation Cardiovascular: RRR, no murmur, no edema Gastrointestinal (Abdomen): normal bowel sounds, soft, nontender, no hepatosplenomegaly Results & Data Results & Data Vital Signs (Past 12 Hours) Vital Signs Temp Pulse Resp BP Pulse Ox O2 Del Method 11/08/24 07:46 36.7 C 78 16 130/86 95 Room Air Laboratory Results [facility] 11/08/24 07:50 Sodium 137 Potassium 3.5 Chloride 102 Carbon Dioxide 31 BUN 8 Creatinine 0.61 Glucose 109 H Calcium 9.3 Medications Administered Home Medications Medication Instructions Recorded Confirmed Last Taken ondansetron 4 mg disintegrating 4 mg PO Q8H PRN Nausea And Vomiting 04/27/24 11/04/24 06/26/24 tablet sertraline 100 mg tablet 200 mg PO DAILY 05/01/24 11/04/24 11/04/24 clonazepam 1 mg tablet 1 mg PO DAILY 06/27/24 11/04/24 11/04/24 acetaminophen 325 mg tablet 650 mg PO DIRECTED PRN PAIN, 11/04/24 11/04/24 Unknown (Tylenol) MILD-MODERATE aripiprazole 2 mg tablet 2 mg PO QAM 11/04/24 11/04/24 11/04/24 cyanocobalamin (vitamin B-12) 1,000 mcg subcut .Q12WKS 11/04/24 11/04/24 Unknown 1,000 mcg/mL injection solution epinephrine 0.3 mg/0.3 mL 0.3 mg IM DIRECTED PRN Allergic 11/04/24 11/04/24 Unknown injection, auto-injector (EpiPen) Reaction lansoprazole 30 mg delayed 30 mg PO QAM 11/04/24 11/04/24 11/04/24 release,disintegrating tablet (Prevacid SoluTab) ftppgjbp-obk-eaca-FA-Ca carb-vit K 1 tab PO DAILY 11/04/24 11/04/24 11/04/24 18 mg iron-400 mcg-500 mg tablet (Women's One Daily) nutritional supplements 105 ea feeding tube DIRECTED 11/04/24 11/04/24 Unknown prochlorperazine 25 mg rectal 25 mg [place] Q12H PRN NAUSEA/VOMITING 11/04/24 11/04/24 Unknown suppository (Compazine) prochlorperazine maleate 5 mg 5 mg PO Q6H PRN NAUSEA/VOMITING 11/04/24 11/04/24 Unknown tablet (Compazine) promethazine 25 mg tablet 25 mg PO Q6H PRN NAUSEA/VOMITING 11/04/24 11/04/24 Unknown scopolamine base 1 mg over 3 days 1 mg transdermal .Q72HRS 11/04/24 11/04/24 11/04/24 transdermal patch trazodone 50 mg tablet 50 mg PO HS 11/04/24 11/04/24 11/03/24 Active Medications Generic Name Dose Route Start Last Admin Trade Name Freq PRN Reason Stop Dose Admin Aripiprazole 2 mg 11/05/24 09:00 11/08/24 10:58 Aripiprazole 2 Mg Tab PO 12/05/24 08:59 2 mg QAM CASANDRA Administration Clonazepam 1 mg 11/05/24 09:00 11/08/24 09:48 Clonazepam 1 Mg Tab PO 12/05/24 08:59 1 mg DAILY CASANDRA Administration Dicyclomine HCl 10 mg 11/06/24 13:00 11/08/24 12:49 Dicyclomine Hcl 10 Mg Cap PO 12/06/24 12:59 10 mg QID CASANDRA Administration Dronabinol 2.5 mg 11/07/24 13:55 11/08/24 09:49 Dronabinol 2.5 Mg Cap PO 12/07/24 13:54 2.5 mg BID CASANDRA Administration Heparin Sodium (Porcine) 5,000 units 11/05/24 06:00 11/08/24 13:26 Heparin Sod 5,000 Unit/0.5 Ml Vial SQ 12/05/24 05:59 5,000 units Q8 CASANDRA Administration Promethazine HCl 12.5 mg in 50.5 mls @ 202 mls/hr 11/05/24 03:42 11/07/24 16:13 Phenergan IV 12/05/24 03:41 Infused Q6H PRN Infusion Nausea And Vomiting Famotidine 20 mg in 5 mls @ 2.5 mls/min 11/05/24 09:00 11/08/24 09:49 Pepcid 20mg Iv Push IV 12/05/24 08:59 2.5 mls/min Q12H CASANDRA Administration Ketorolac Tromethamine 15 mg 11/06/24 09:59 11/08/24 06:12 Ketorolac Tromethamine 15 Mg/Ml Vial IV 11/11/24 09:58 15 mg Q8H PRN Administration Pain Meclizine HCl 12.5 mg 11/07/24 13:24 11/07/24 14:00 Meclizine 12.5 Mg Tab PO 12/07/24 13:23 12.5 mg Q6H PRN Administration Dizziness or Vertigo Miscellaneous 1 each 11/07/24 08:59 11/07/24 09:19 Remove Transderm-Scop Patch N/A 12/07/24 08:58 Not Given Q72H CASANDRA Miscellaneous 1 each 11/05/24 08:00 11/08/24 09:11 Check Scopolamine Patch Placement N/A 12/05/24 07:59 1 each QS CASANDRA Administration Miscellaneous 1 each 11/07/24 21:00 11/07/24 20:51 Remove Lidoderm Patch N/A 12/07/24 20:59 1 each DAILY@2100 CASANDRA Administration Nutritional Formula 0 ml 11/06/24 20:00 11/06/24 23:12 Nutren Liqd 2.0 1,000 Ml Bag GT 12/06/24 19:59 1,000 ml .See Protocol CASANDRA Administration Protocol Ondansetron HCl 4 mg 11/05/24 03:42 11/08/24 12:49 Ondansetron Inj 2 Mg/Ml 2 Ml Vial IV 12/05/24 03:41 4 mg Q6H PRN Administration Nausea Scopolamine 1 patch 11/07/24 09:00 11/07/24 09:40 Scopolamine 1 Mg/72 Hr Tdsy Patch TD 12/07/24 08:59 1 patch Q72H CASANRDA Administration Senna/Docusate Sodium 1 tab 11/07/24 14:00 11/08/24 09:48 Docusate Sodium/Senna 50/8.6mg Tab PO 12/07/24 13:59 1 tab QAM CASANDRA Administration Sertraline HCl 200 mg 11/05/24 09:00 11/08/24 09:49 Sertraline Hcl 100 Mg Tablet PO 12/05/24 08:59 200 mg DAILY CASANDRA Administration Sterile Water 125 ml 11/06/24 14:00 11/08/24 13:28 Tube Feeding Water Flush GT 12/06/24 13:59 125 ml Q4H CASANDRA Administration Trazodone HCl 50 mg 11/05/24 21:00 11/07/24 20:50 Trazodone Hcl 50 Mg Tab PO 12/05/24 20:59 50 mg HS CASANDRA Administration
[2024-11-08] MEDS: ONDANSETRON INJ 2 MG/ML 2 ML VIAL IV PRN (19:24)
[2024-11-09] MEDS: ACETAMINOPHEN 1,000 MG/100 ML VIAL IV STA ×2 (01:00→10:32)
[2024-11-09] MEDS: D5W AND 1/2NSS 1,000 ML IV SCH (01:24)
[2024-11-09 07:33] VITALS: RESP 16; O2SAT 96
[2024-11-09] MEDS ORDERED: DICYCLOMINE HCL 10 MG CAP PO PRN (10:24)
[2024-11-09] MEDS: DICYCLOMINE HCL 10 MG CAP PO ONE (10:39)
[2024-11-09] MEDS: PROCHLORPERAZINE MALEATE 10 MG TAB PO STA (11:15)
--- NOTE | 2024-11-09 11:25 | Gastrointestinal Consultation ---
Date of Consultation November 09, 2024 Assessment & Plan (1) Gastrostomy present: We were asked to come see for a leaking peg tube. During exam today this does not seem to be leaking. Will discuss case further with Dr. Jarrell and will reexamine this later this afternoon on rounds to reassess. Supervising Physician Co-Signing Physician Notes Patient with button PEG in remanent stomach per 's report. Changed about 2 months ago. Has had some leakage since that time. Described as a fair amount. Worse with feeds. Examined of the PEG site does show small button type PEG, I cannot see the manufactures name. Appears that this has a balloon bumper as there is a balloon inflation port. Unfortunately do not know the actual cc or mL that this balloon contains there is a moderate amount of free play of 2 to 3 cm between the external Y connector and the balloon. The PEG can be moved freely in and out of the abdomen. This may result in some mucosal leaking, , there is a well-established tract here. Options at this time including feeding in a different position as fluid away from the PEG orifice may decrease leakage. Alternatively reinflating her balloon to a maximum diameter may give her an improved seal. However as there is not engineering recruiter name on this PEG tube and I am unfamiliar with it would not want to over inflate the balloon and cause rupture with then subsequent dislodgment of the PEG tube. If patient remains in hospital we can get that information from her previous solution manager. Alternatively if she is discharged. She can try feeds with position change which may decrease leakage. Follow-up with your usual treating solution manager. 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 GI asked to see for leaking peg tube. Patient tells me that this was placed somewhere in [place], [place]. Patient is s/p PEG due to ongoing food avoidance behaviors and malnutrition. Patient with episodic nausea and vomiting that is possibly triggered by stress/anxiety per chart. The remainder of the GI ROS was unremarkable. EGD 2023: - Normal esophagus. - Z-line regular. - Maryuri-en-Y gastrojejunostomy with gastrojejunal anastomosis characterized by healthy appearing mucosa. Biopsied. - Normal examined jejunum. Colonoscopy 2023: The examined portion of the terminal ileum appeared normal. - The examined colon appeared normal. Biopsied. - Diverticulosis in the ascending and sigmoid colon - most prominent in the sigmoid colon. - Internal hemorrhoids. Allergies Allergy/AdvReac Type Severity Reaction Status Date / Time No Known Allergies Allergy Verified 11/04/24 23:00 Home Medications Medication Instructions Recorded Confirmed Type sertraline 100 mg tablet 200 mg PO DAILY 05/01/24 11/04/24 History clonazepam 1 mg tablet 1 mg PO DAILY 06/27/24 11/04/24 History acetaminophen 325 mg tablet 650 mg PO DIRECTED PRN PAIN, 11/04/24 11/04/24 History (Tylenol) MILD-MODERATE aripiprazole 2 mg tablet 2 mg PO QAM 11/04/24 11/04/24 History cyanocobalamin (vitamin B-12) 1,000 mcg subcut .Q12WKS 11/04/24 11/04/24 History 1,000 mcg/mL injection solution epinephrine 0.3 mg/0.3 mL 0.3 mg IM DIRECTED PRN Allergic 11/04/24 11/04/24 History injection, auto-injector (EpiPen) Reaction lansoprazole 30 mg delayed 30 mg PO QAM 11/04/24 11/04/24 History release,disintegrating tablet (Prevacid SoluTab) eetvotsv-xnj-dkqb-FA-Ca carb-vit K 1 tab PO DAILY 11/04/24 11/04/24 History 18 mg iron-400 mcg-500 mg tablet (Women's One Daily) nutritional supplements 105 ea feeding tube DIRECTED 11/04/24 11/04/24 History prochlorperazine maleate 5 mg 5 mg PO Q6H PRN NAUSEA/VOMITING 11/04/24 11/04/24 History tablet (Compazine) scopolamine base 1 mg over 3 days 1 mg transdermal .Q72HRS 11/04/24 11/04/24 History transdermal patch trazodone 50 mg tablet 50 mg PO HS 11/04/24 11/04/24 History baclofen 10 mg tablet 10 mg PO Q12H PRN hiccups #60 tabs 11/09/24 Rx dicyclomine 10 mg capsule 10 mg PO QID PRN abdominal pain 11/09/24 Rx #60 caps dronabinol 2.5 mg capsule 2.5 mg PO BID 30 days #60 caps 11/09/24 Rx lidocaine 5 % topical patch 1 patch topical DAILY #30 ea 11/09/24 Rx ondansetron 4 mg disintegrating 4 mg PO Q8H PRN Nausea And 11/09/24 Rx tablet Vomiting #45 tabs prochlorperazine 25 mg rectal 25 mg [place] Q12H PRN NAUSEA/VOMITING 11/09/24 11/04/24 Rx suppository (Compazine) 15 days #0 ea Patient History Medical History Pulmonary embolism Endometriosis Hemorrhagic stroke Surgical History History of Maryuri-en-Y gastric bypass H/O wisdom tooth extraction History of partial colectomy History of hysterectomy Hx of cholecystectomy History of appendectomy H/O craniotomy Social History Smoking Status: Never smoker Tobacco Type: E-cigarettes / Vaping Second Hand Exposure: No; Do You Dip or Chew Tobacco: No; Hx Alcohol Use: No Hx Substance Use: Yes Last Used Substance: Days (ago) Last Used Substance Other:: 2 months ago Substance Use Type Other:: medical marijuana Preferred Language: Icelandic 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 Ability: Effective 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 no leaking noted during exam. Psychiatric: Orientation: alert and oriented x 3 Affect: euthymic affect Results & Data Vital Signs (Past 12 Hours) Vital Signs Temp Pulse Resp BP BP Pulse Ox O2 Del Method 11/09/24 10:18 164/96 H 11/09/24 07:28 97.7 F 61 16 100/66 96 Room Air 11/09/24 06:42 98.4 F 88 14 96/62 L 95 Room Air Coding Level of Care Code 47222 IN/OBS CONSULT LVL 3,45M Diagnoses Gastrostomy present Z93.1
--- NOTE | 2024-11-09 12:30 | Electrocardiogram Report ---
Test Reason : Blood Pressure : */* mmHG Vent. Rate : 79 BPM Atrial Rate : 79 BPM P-R Int : 136 ms QRS Dur : 76 ms QT Int : 396 ms P-R-T Axes : 71 79 53 degrees QTcB Int : 454 ms Normal sinus rhythm Normal ECG When compared with ECG of 19-Jul-2024 15:34, T wave inversion no longer evident in Anterior leads Confirmed by Favian Spear [id number]) on 11/09/2024 12:30:24 PM Referred By: REFERRED SELF Confirmed By: Favian Spear
[2024-11-09 13:09] VITALS: TEMP 98.2
[2024-11-09] MEDS: BACLOFEN 10 MG TAB PO STA (15:16)
[2024-11-09 15:41] VITALS: BP 147/86; PULSE 74
--- NOTE | 2024-11-09 15:59 | Palliative Care Consultation ---
Date of Consultation November 09, 2024 Assessment & Plan (1) Palliative care by specialist: assessed pt at bedside, no visitors present. Attempt made to contact pt's spouse by phone, no answer, general VM left. Palliative care consulted for outpt clinic management of intractable N/V. Appointment with outpt clinic requested for early next week. (2) Chronic nausea: Pt initially denied any discomfort, but later in conversation c/o intermittent LLQ non radiating gnawing type pain. She could not identify any provoking or relieving factors, denied any associated nausea or constipation. She shared that her nausea and pain are currently resolved but poor appetite continues. Discussed with attending Dr. Thomson who shared intent to discharge pt to home today. Pt was started on scheduled drabinol two days ago with no further emesis. this may also offer some relief of pt's chronic anorexia and pain. Dr. Gil stated that the pt's spouse requests outpt palliative care follow up. Appointment has been requested for next week with outpt palliative care clinic. She did c/o leaking at site of PEG, noted serous drainage saturating gauze dressing. GI has been reconsulted by attdg team for this complaint. No changes in meds recommended at this time, pt appears to be getting expected benefit of drabinol. Continue: Dronabinol (Dronabinol 2.5 Mg Cap) 2.5 mg PO BID CASANDRA Zofran 4mg PO q6h PRN for nausea Plan as above Pt to follow up with Dr Lopez in outpt palliative care clinic for ongoing symptom management. History of Present Illness Reason for Consultation: symptom management/outpt follow up Requesting Physician: Zulay Askew MD Attending Physician: Zulay Askew MD History of Present Illness Patient is a 54 year old female with a past medical history significant for prediabetes, history of hyperkalemia, history of sleep apnea, history of severe protein energy malnutrition, intractable nausea / vomiting, s/p gastric surgery syndrome, GERD, depression, PE in 2018 currently not on anticoagulation, Maryuri-en-Y gastric bypass in 2020, left basal ganglia hemorrhagic CVA requiring craniectomy in October 2022 and cranioplasty in March 2023, who is admitted for intractable nausea and vomiting which is suspected to be Central in nature after stroke. Patient is s/p PEG due to ongoing food avoidance behaviors and malnutrition. Patient with episodic nausea and vomiting that is possibly triggered by stress/anxiety per progress notes. Pt started on scheduled drabinol which appears to be offering some relief. Palliative care was consulted to establish care for outpt follow up and symptom managment. Allergies Allergy/AdvReac Type Severity Reaction Status Date / Time No Known Allergies Allergy Verified 11/04/24 23:00 Home Medications Medication Instructions Recorded Confirmed Type ondansetron 4 mg disintegrating 4 mg PO Q8H PRN Nausea And Vomiting 04/27/24 11/04/24 History tablet sertraline 100 mg tablet 200 mg PO DAILY 05/01/24 11/04/24 History clonazepam 1 mg tablet 1 mg PO DAILY 06/27/24 11/04/24 History acetaminophen 325 mg tablet 650 mg PO DIRECTED PRN PAIN, 11/04/24 11/04/24 History (Tylenol) MILD-MODERATE aripiprazole 2 mg tablet 2 mg PO QAM 11/04/24 11/04/24 History cyanocobalamin (vitamin B-12) 1,000 mcg subcut .Q12WKS 11/04/24 11/04/24 History 1,000 mcg/mL injection solution epinephrine 0.3 mg/0.3 mL 0.3 mg IM DIRECTED PRN Allergic 11/04/24 11/04/24 History injection, auto-injector (EpiPen) Reaction lansoprazole 30 mg delayed 30 mg PO QAM 11/04/24 11/04/24 History release,disintegrating tablet (Prevacid SoluTab) qcswmocw-chm-ldsy-FA-Ca carb-vit K 1 tab PO DAILY 11/04/24 11/04/24 History 18 mg iron-400 mcg-500 mg tablet (Women's One Daily) nutritional supplements 105 ea feeding tube DIRECTED 11/04/24 11/04/24 History prochlorperazine 25 mg rectal 25 mg CA Q12H PRN NAUSEA/VOMITING 11/04/24 11/04/24 History suppository (Compazine) prochlorperazine maleate 5 mg 5 mg PO Q6H PRN NAUSEA/VOMITING 11/04/24 11/04/24 History tablet (Compazine) promethazine 25 mg tablet 25 mg PO Q6H PRN NAUSEA/VOMITING 11/04/24 11/04/24 History scopolamine base 1 mg over 3 days 1 mg transdermal .Q72HRS 11/04/24 11/04/24 History transdermal patch trazodone 50 mg tablet 50 mg PO HS 11/04/24 11/04/24 History Patient History Medical History Pulmonary embolism Endometriosis Hemorrhagic stroke Surgical History History of Maryuri-en-Y gastric bypass H/O wisdom tooth extraction History of partial colectomy History of hysterectomy Hx of cholecystectomy History of appendectomy H/O craniotomy Social History Smoking Status: Never smoker Tobacco Type: E-cigarettes / Vaping Second Hand Exposure: No; Do You Dip or Chew Tobacco: No; Hx Alcohol Use: No Hx Substance Use: Yes Last Used Substance: Days (ago) Last Used Substance Other:: 2 months ago Substance Use Type Other:: medical marijuana Preferred Language: Chinese 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 Ability: Effective 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 gauze dressing saturated with serous leakage. Neurologic: pt with slow speech and difficulty word finding Psychiatric: Orientation: alert and oriented x 3 Affect: euthymic affect Results & Data Vital Signs (Past 12 Hours) Vital Signs Temp Pulse Resp BP BP Pulse Ox O2 Del Method 11/09/24 15:40 36.8 C 74 16 147/86 H 96 Room Air 11/09/24 13:01 36.8 C 92 H 16 147/91 H 96 Room Air 11/09/24 10:18 164/96 H 11/09/24 07:28 36.5 C 61 16 100/66 96 Room Air 11/09/24 06:42 36.9 C 88 14 96/62 L 95 Room Air Diagnostic Findings Abdomen/Pelvis CT 11/04/24 21:54 Exam(s): CT ABDOMEN + PELVIS With Contrast IV Amt: 90 ml optiay 320 EXAM: CT Abdomen and Pelvis With Intravenous Contrast CLINICAL HISTORY: Reason for exam: Left sided abdominal pain, vomiting, elev WBC. TECHNIQUE: Axial computed tomography images of the abdomen and pelvis with intravenous contrast. CTDI is 10.7 mGy and DLP is 468.51 mGy-cm. Automated exposure control was utilized for the study. A dose lowering technique was utilized adhering to the principles of ALARA. CONTRAST: Patient received 90 ml optiay 320 of IV contrast COMPARISON: July 19 2024 FINDINGS: Lung bases: Unremarkable. No mass. No consolidation. ABDOMEN: Liver: Unremarkable. No mass. Gallbladder and bile ducts: Slight biliary duct prominence postcholecystectomy. No biliary duct dilation or choledocholithiasis is seen. Pancreas: Unremarkable. No mass. No ductal dilation. Spleen: Unremarkable. No splenomegaly. Adrenals: Unremarkable. No mass. Kidneys and ureters: 1 cm simple cyst extending off the posterior right kidney. No follow-up is required. No hydronephrosis. Stomach and bowel: Staple line from previous gastric surgery. There is a percutaneous gastrostomy in the distal stomach and stomach is nondilated. No evidence of leakage or acute inflammation. Bowel loops are nondilated. There is an anastomotic staple line involving the mid small bowel. There is diverticulosis of the colon without evidence of acute diverticulitis. Previous sigmoid colon anastomosis is noted. No acute inflammatory changes are seen involving the bowel. PELVIS: Appendix: No findings to suggest acute appendicitis. Bladder: Unremarkable. No mass. Reproductive: Unremarkable as visualized. ABDOMEN and PELVIS: Intraperitoneal space: The uterus is absent. No free fluid in the pelvis. No free air. Bones/joints: Mild degenerative changes in the spine. No acute fracture or subluxation is seen. Soft tissues: Unremarkable. Vasculature: Unremarkable. No abdominal aortic aneurysm. Lymph nodes: Unremarkable. No enlarged lymph nodes. IMPRESSION: 1. Staple line from previous gastric surgery. There is a percutaneous gastrostomy in the distal stomach. The stomach is nondilated. No evidence of leakage or acute inflammation. 2. Bowel loops are nondilated. There is an anastomotic staple line involving the mid small bowel. There is diverticulosis of the colon without evidence of acute diverticulitis. Previous sigmoid colon anastomosis is noted. No acute inflammatory changes are seen involving the bowel. Electronically signed by: Noah Vera MD 11/05/24 00:08 AM Chest X-Ray 11/04/24 21:54 Exam(s): XR CXR 1 VIEW EXAM: XR Chest, 1 View CLINICAL HISTORY: Reason for exam: abdominal pain, vomiting. TECHNIQUE: Frontal view of the chest. COMPARISON: June 27, 2024 FINDINGS: Lungs: Unremarkable. No consolidation. Pleural space: Unremarkable. No pneumothorax. Heart: Unremarkable. No cardiomegaly. Mediastinum: Unremarkable. Normal mediastinal contour. Bones/joints: Unremarkable. No acute fracture. IMPRESSION: Normal chest x-ray. Electronically signed by: Noah Vera MD 11/05/24 00:13 AM Medications Administered Current Inpatient Medications Aripiprazole (Aripiprazole 2 Mg Tab) 2 mg PO QAM CASANDRA Stop: 12/05/24 08:59 Last Admin: 11/09/24 08:06 Dose: 2 mg Clonazepam (Clonazepam 1 Mg Tab) 1 mg PO DAILY CASANDRA Stop: 12/05/24 08:59 Last Admin: 11/09/24 08:06 Dose: 1 mg Dicyclomine HCl (Dicyclomine Hcl 10 Mg Cap) 10 mg PO QID PRN PRN Reason: abdominal spasm Stop: 12/09/24 12:59 Dronabinol (Dronabinol 2.5 Mg Cap) 2.5 mg PO BID CASANDRA Stop: 12/07/24 13:54 Last Admin: 11/09/24 08:06 Dose: 2.5 mg Heparin Sodium (Porcine) (Heparin Sod 5,000 Unit/0.5 Ml Vial) 5,000 units SQ Q8 CASANDRA Stop: 12/05/24 05:59 Last Admin: 11/09/24 14:47 Dose: 5,000 units Famotidine (Pepcid 20mg Iv Push) 20 mg in 5 mls @ 2.5 mls/min IV Q12H CASANDRA Stop: 12/05/24 08:59 Last Admin: 11/09/24 09:19 Dose: 2.5 mls/min Dextrose/Sodium Chloride (D5w And 1/2nss) 1,000 mls @ 100 mls/hr IV .Q10H CASANDRA Stop: 11/12/24 00:59 Last Admin: 11/09/24 10:46 Dose: 100 mls/hr Ketorolac Tromethamine (Ketorolac Tromethamine 15 Mg/Ml Vial) 15 mg IV Q8H PRN PRN Reason: Pain Stop: 11/11/24 09:58 Last Admin: 11/09/24 09:18 Dose: 15 mg Meclizine HCl (Meclizine 12.5 Mg Tab) 12.5 mg PO Q6H PRN PRN Reason: Dizziness or Vertigo Stop: 12/07/24 13:23 Last Admin: 11/09/24 08:06 Dose: 12.5 mg Miscellaneous (Remove Lidoderm Patch) 1 each N/A DAILY@2100 [facility] Stop: 12/07/24 20:59 Last Admin: 11/08/24 20:59 Dose: 1 each Nutritional Formula (Nutren Liqd 2.0 1,000 Ml Bag) 0 ml GT .See Protocol CASANDRA; Protocol Stop: 12/06/24 19:59 Last Admin: 11/06/24 23:12 Dose: 1,000 ml Ondansetron HCl (Ondansetron Inj 2 Mg/Ml 2 Ml Vial) 4 mg IV Q8H PRN PRN Reason: Nausea Stop: 12/05/24 03:41 Last Admin: 11/09/24 05:37 Dose: 4 mg Senna/Docusate Sodium (Docusate Sodium/Senna 50/8.6mg Tab) 1 tab PO QAM [facility] Stop: 12/07/24 13:59 Last Admin: 11/09/24 08:06 Dose: 1 tab Sertraline HCl (Sertraline Hcl 100 Mg Tablet) 200 mg PO DAILY CASANDRA Stop: 12/05/24 08:59 Last Admin: 11/09/24 08:06 Dose: 200 mg Sterile Water (Tube Feeding Water Flush) 125 ml GT Q4H CASANDRA Stop: 12/06/24 13:59 Last Admin: 11/09/24 15:02 Dose: Not Given Trazodone HCl (Trazodone Hcl 50 Mg Tab) 50 mg PO HS [facility] Stop: 12/05/24 20:59 Last Admin: 11/08/24 20:58 Dose: 50 mg PG Care Time/CCT Total # of Minutes Spent Total Time Spent with Patient: Total time spent is greater than 50% in coordination of care (as documented) at patient's floor/unit and/or counseling patient: [place] [address] IN/OBS CONSULT LVL 4,60M Patient Type New History Expanded Problem Focused Exam Expanded Problem Focused Medical Decision Making Moderate Complexity Diagnoses Palliative care by specialist Z51.5 Chronic nausea R11.0
--- NOTE | 2024-11-09 17:08 | Discharge Summary ---
Discharge Summary Date of Service November 09, 2024 Principal Dx & Hospital Course #1 = Principal Diagnosis (1) Intractable nausea and vomiting: Ms Marie is a 54-year-old female with past medical history significant for prediabetes, history of hyperkalemia, history of sleep apnea, history of severe protein energy malnutrition, history of nausea vomiting, history of post gastric surgery syndrome, GERD, depression, history of PE in 2018 currently not on antic oagulation, history of Maryuri-en-Y gastric bypass in 2020, history of left basal ganglia hemorrhagic CVA requiring craniectomy in October 2022 with eventual cranioplasty in March 2023 admitted for intractable nausea and vomiting Patient is s/p PEG due to ongoing food avoidance behaviors and malnutrition. Patient with episodic nausea and vomiting that is possibly triggered by stress/anxiety as reported by . She uses peg for over night nutrition, tolerating only about 3 bottles of protein shake. During these episodes, she notes the onset of hiccups then nausea and abdominal pain. Patient evaluated by Psychiatry who recommends continuing home psych meds at this time. Will consider dronabinol for acute episodes. Patient persistent non-changing symptoms. Unclear to ascertain benefit, however, notable despite reports of persistent symptoms patient is tolerating tube feeds and more mobile/conversational than days prior. Palliative evaluated patient and established outpatient follow up with her. Started plan for reports hiccups that often precipitate these symptoms. Patient to take baclofen 10mg at onset of hiccups then insert a Compazine suppository Patient started on Marinol 2.5mg bid. Room for increased titration of antidepressants and anxiolytic medications. Patient with discharge around peg and recommended to follow up with her GI physician to adjust balloon v replace. Patient verbalized understanding, On day of discharge, patient ambulating without difficulty, tolerating tube feeds, and moving independently. Patient's symptoms subjectively present, howeve r, will require close outpatient follow up and titration of medications. #Intractable nausea and vomiting #Central nausea and vomiting s/p stroke, possible cyclic vomiting syndrome History of nausea and vomiting in the past CT abdomen pelvis no acute findings UA is unremarkableDrug screen positive for marijuana Psych consulted for consideration of TCA, however, given other agents started at this time felt to be better to titrate those medications prior to additional agent continue bentyl for cramping/pain sensations in abdomen, seems to be of modest help Lidocaine patch to abdominal wall were skin seems to hurt continue dronabinol 2.5mg bid continue zofran and compazine prn Baclofen prn for hiccups #Cough resolved Chest x-ray okay #depression and anxiety Continue home medications #GERD continue IV Pepcid for now #Protein calorie malnutrition patient to resume home tube feeds #Mild cognitive impairment #History of hemorrhagic CVA CTM #History of prediabetes a1c 5.2% Notes For Next Care Provider Needs GI follow up regarding PEG, suspect underinflated balloon given presence of leakage around site Medication Changes From Visit Bentyl 10mg as needed up to four times a day for abdominal spasm lidocaine patch to superficial area of pain in left flank Marinol 2.5mg two times day zofran 4mg every 8 hours and Compazine 5mg every 6 hours for nausea Hiccups: In case of hiccups which are reported to precipitate acute spells, take Baclofen 10mg & insert a Compazine suppository to prevent nausea and vomiting Admission HPI Per Admitting Provider 54-year-old female with past medical history significant for prediabetes, history of hyperkalemia, history of sleep apnea, history of severe protein energy malnutrition, history of nausea vomiting, history of post gastric surgery syndrome, GERD, depression, history of PE in 2018 currently not on anticoagulation, history of Maryuri-en-Y gastric bypass in 2020, history of left basal ganglia hemorrhagic CVA requiring craniectomy in October 2022 with eventual cranioplasty in March 2023 comes because of persistent nausea and vomiting and abdominal pain. Patient after gastric bypass in the recovery phase had significant food aversion as well as nausea and is status post PEG tube placement in the remnant stomach. Patient currently mostly tube feed dependent. Says can eat few bites of soft food. But since last 1 day she is having signi ficant nausea and vomiting and abdominal pain. Abdominal pain is mostly in the left side abdomen. She also having headaches. She has history of headaches as per patient. She has a cough with whitish phlegm. Denies any fevers. No runny nose or sore throat. Denies chest pain or shortness of breath. Normal bowel and bladder movements. Currently hemodynamics are okay. Past medical history. As mentioned above Past surgical history. Bilateral breast enhancement. Colonoscopy. cystoscopy with stent placement. Dental surgery. EGD. Laparoscopic gastrostomy without reconstruction gastric tube. Laparoscopic gastric bypass Maryuri-en-Y. Laparoscopic appendectomy. Injection of lumbosacral spine. Partial removal of colon for diverticulitis. Laparoscopic cholecystectomy. Small bowel endoscopy with biopsy. Social history. . Quit smoking 2023. Smoked 0.3 pack a day for 16 years. No alcohol use currently. Smokes marijuana once or twice a week. Family history. Paternal grandfather had prostate cancer. Maternal grandfather had NH. Maternal grandmother had stroke. Father had CAD. Mother had high cholesterol. Admission Exam Per Admitting Provider General- Not in distress. Head- atraumatic Eyes- PERRL. ENT- oropharynx clear Neck- supple, no JVD. Lungs- clear to auscultation no wheezing or crackles Heart- regular rhythm; no murmur, no gallop. Abdomen- normal bowel sounds, soft, nontender, no distension. Peg tube seen Extremities- no pretibial edema, no erythema seen Neuro- alert, oriented PERRL, no facial palsy; no dysarthria; moves extremities Discharge Exam Constitutional WD/WN, vitals as above Respiratory normal respiratory effort, lungs clear to auscultation Cardiovascular RRR, no murmur, no edema Gastrointestinal (Abdomen) normal bowel sounds, soft, nontender, no hepatosplenomegaly Neurologic PERRL, EOMI, accommodation nl, no face palsy, no dysarthria Updated Medication List Medication Instructions Recorded Confirmed Type sertraline 100 mg tablet 200 mg PO DAILY 05/01/24 11/04/24 History clonazepam 1 mg tablet 1 mg PO DAILY 06/27/24 11/04/24 History acetaminophen 325 mg tablet 650 mg PO DIRECTED PRN PAIN, 11/04/24 11/04/24 History (Tylenol) MILD-MODERATE aripiprazole 2 mg tablet 2 mg PO QAM 11/04/24 11/04/24 History cyanocobalamin (vitamin B-12) 1,000 mcg subcut .Q12WKS 11/04/24 11/04/24 History 1,000 mcg/mL injection solution epinephrine 0.3 mg/0.3 mL 0.3 mg IM DIRECTED PRN Allergic 11/04/24 11/04/24 History injection, auto-injector (EpiPen) Reaction lansoprazole 30 mg delayed 30 mg PO QAM 11/04/24 11/04/24 History release,disintegrating tablet (Prevacid SoluTab) bkdtisys-rpg-wfrk-FA-Ca carb-vit K 1 tab PO DAILY 11/04/24 11/04/24 History 18 mg iron-400 mcg-500 mg tablet (Women's One Daily) nutritional supplements 105 ea feeding tube DIRECTED 11/04/24 11/04/24 History prochlorperazine maleate 5 mg 5 mg PO Q6H PRN NAUSEA/VOMITING 11/04/24 11/04/24 History tablet (Compazine) scopolamine base 1 mg over 3 days 1 mg transdermal .Q72HRS 11/04/24 11/04/24 History transdermal patch trazodone 50 mg tablet 50 mg PO HS 11/04/24 11/04/24 History baclofen 10 mg tablet 10 mg PO Q12H PRN hiccups #60 tabs 11/09/24 Rx dicyclomine 10 mg capsule 10 mg PO QID PRN abdominal pain 11/09/24 Rx #60 caps dronabinol 2.5 mg capsule 2.5 mg PO BID 30 days #60 caps 11/09/24 Rx lidocaine 5 % topical patch 1 patch topical DAILY #30 ea 11/09/24 Rx ondansetron 4 mg disintegrating 4 mg PO Q8H PRN Nausea And 11/09/24 Rx tablet Vomiting #45 tabs prochlorperazine 25 mg rectal 25 mg TN Q12H PRN NAUSEA/VOMITING 11/09/24 11/04/24 Rx suppository (Compazine) 15 days #0 ea Hospital Stay Data Consultations 11/05/24 01:31 ED Decision to Admit Stat 11/05/24 12:10 Consult Mental Health [Consult Psychiatry] Routine 11/07/24 14:46 Consult Palliative Care Routine 11/09/24 08:00 Consult Gastroenterology Routine Diagnostic Imagining Performed 11/04/24 21:54 CT abd pelvis IV con only Stat Pending Results Patient Have Any Pending Studies at Discharge: No Discharge Instructions Given to Patient (Per Discharging Provider) You were admitted for intractable nausea and vomiting. You had multiple symptoms that were attempted to be addressed and the medications adjusted will be explained by symptom: Abdominal pain: -Please use Bentyl 10mg as needed up to four times a day for abdominal spasm -Please use lidocaine patch to superficial area of pain in left side Nausea and Vomiting, Poor appetite: -Please start Marinol 2.5mg two times day -Please use zofran 4mg every 8 hours and Compazine 5mg every 6 hours for nausea -If nauseated and vomiting, please use Compazine suppository Hiccups: In case of hiccups which are reported to precipitate your acute spells, please take Baclofen 10mg and please insert a Compazine suppository to prevent nausea and vomiting Please continue all other medications as prescribed Please follow up with Palliative Care, an appointment will be made Please follow up with Gastroenterology to discuss peg tube adjustments Total Time Total Time Spent Total Time Spent (In Minutes): 45
== END 2024-11-09 17:38 | disposition home health service (06) | DRG 393 ==
LOC: 4W 19:51 → ED 19:51 → 4W 11-05 03:25 → 3N 11-06 17:59

== ENCOUNTER 2025-05-23 15:28 | Inpatient (IN) ==
[2025-05-23] MEDS: SODIUM CHLORIDE 0.9% 1,000 ML IV ONE (15:57)
--- NOTE | 2025-05-23 15:59 | Emergency Department Note ---
Impression & Plan Nausea & vomiting, Acute hypokalemia, Hypomagnesemia, Syncope and collapse, Symptomatic anemia ED Provider Note HISTORY OF PRESENT ILLNESS: Patient is a 55-year-old female presenting with abdominal pain and concern for dehydration. Patient reports for the last few days she has been feeling diffuse abdominal pain. She states that she is very nauseous. She was wearing a scopolamine patch recently and it does not seem to be helping with her nausea. Reports her last feed through [facility] was last night. She states that she just feels very unwell. She was recently started on antibiotics by her primary care provider for a urinary tract infection. Patient has had multiple abdominal surgeries. Denies any fevers or chills. Currently complaining of pain in her right lower quadrant of her abdomen and feeling nauseous. Denies any chest pain or shortness of breath. Her son just returned home recently and is having a cough and chest congestion but no other recent sick contact exposures. Patient has been admitted previously for intractable nausea and vomiting. Patient does report that earlier today she felt lightheaded and "passed out for a few seconds." She denies any chest pain or shortness of breath prior to the episode. Reports that she "just blacked out for a second." ROS: as above PHYSICAL EXAM: Constitutional: Patient appears in no acute distress. HENT: Head: Normocephalic and atraumatic. Eyes: EOMI, PERRL Mouth/Throat: Mucous membranes moist. Neck: Trachea midline. Neck supple. Cardiovascular: Tachycardic with regular rhythm. No murmurs, rubs or gallops. Intact distal pulses. Pulmonary/Chest: No respiratory distress. Breath sounds clear and equal bilaterally. No wheezes or rales. Abdominal: Abdomen soft, no rebound or guarding. [facility] in LUQ. Diffuse TTP Musculoskeletal: No edema, tenderness or deformity noted. Skin: Warm and dry. No rash, erythema, pallor or cyanosis Psychiatric: Appropriate mood and affect for situation. Neurological: Alert and keenly responsive. CN II-XII grossly intact, moving all extremities equally and fully. MDM: - Vitals signs showed tachycardia - History obtained via patient. History as above. - Chronic conditions affecting care: Malnutrition; depression; GERD; CVA - Differential diagnoses include, but are not limited to: Electrolyte abnormality; dehydration; ACS; anemia; bowel obstruction - Order placed for continuous cardiac monitoring. At this time, monitor showed rate of 94 bpm with normal sinus rhythm, per my interpretation. - External medical records reviewed. Discharge summary dated 11/09/2024 was reviewed. Patient was admitted that time secondary to intractable nausea and vomiting. - EKG image interpreted by myself showed normal sinus rhythm. Rate 84 bpm. QT 360. No acute ischemic changes. - Laboratory workup interpreted by myself showed normal WBC; new anemia (Hgb 7.9 - was 14.2 in October 2024); hypokalemia (K 3.1); hypomagnesemia (Mg 1.6); normal AST/ALT; normal troponin - CXR image reviewed interpreted myself is negative for pneumonia, per my interpretation. - UA negative for infection - Viral respiratory panel negative - Patient given 1L NS and 4 mg IV zofran on arrival to ER. - 20 mEq IV potassium + 1g IV magnesium ordered for electrolyte replacement - CT abdomen/pelvis with IV contrast ordered. - Type and screen ordered, given patient's new anemia. - Discussion was had with employment case manager about patient's case and need for admission - Hospitalist consulted for admission - Patient admitted to [facility] service for further evaluation and management. ASSESSMENT AND PLAN: Diagnosis: nausea and vomiting; symptomatic anemia; syncope and collapse; acute hypokalemia; hypomagnesemia Plan: admit Past Med/Surg History Problem List (Updated 05/23/25 @ 18:43 by Ayanna Lubin MD) Right sided abdominal pain Symptomatic anemia (Acute) Syncope and collapse (Acute) Hypomagnesemia (Acute) Acute hypokalemia (Acute) Nausea & vomiting (Acute) Chronic nausea Palliative care by specialist Left sided abdominal pain (Acute) Left lower quadrant abdominal pain (Acute) Taste perversion Gastrostomy present (Acute) Leukocytosis (Acute) Intractable nausea and vomiting (Acute) Unintentional weight loss Moderate protein-calorie malnutrition History of hemorrhagic cerebrovascular accident (CVA) with residual deficit occasional exp aphasia ESTEBAN (obstructive sleep apnea) (Chronic) GERD (gastroesophageal reflux disease) (Chronic) Depression (Chronic) Anxiety Medical History Pulmonary embolism Endometriosis Hemorrhagic stroke Surgical History History of Maryuri-en-Y gastric bypass H/O wisdom tooth extraction History of partial colectomy History of hysterectomy Hx of cholecystectomy History of appendectomy H/O craniotomy Social History Smoking Status: Never smoker Tobacco Type: E-cigarettes / Vaping Second Hand Exposure: No; Do You Dip or Chew Tobacco: No; Hx Alcohol Use: No Hx Substance Use: Yes Last Used Substance: Days (ago) Last Used Substance Other:: 2 months ago Substance Use Type Other:: medical marijuana Preferred Language: Panamanian 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 Ability: Effective Bid Manager Required: No Beliefs That Will Affect Care: None Current Living Situation: Spouse Feels Safe at Home: Yes Assistive Devices: None Allergies Allergies Allergy/AdvReac Type Severity Reaction Status Date / Time No Known Allergies Allergy Verified 05/23/25 17:05 Home Meds Home Medications Medication Instructions Recorded Confirmed sertraline 100 mg tablet 200 mg PO DAILY 05/01/24 05/23/25 clonazepam 1 mg tablet 1 mg PO DAILY 06/27/24 05/23/25 acetaminophen 325 mg tablet 650 mg PO DIRECTED PRN PAIN, 11/04/24 05/23/25 (Tylenol) MILD-MODERATE cyanocobalamin (vitamin B-12) 1,000 mcg subcut .Q12WKS 11/04/24 05/23/25 1,000 mcg/mL injection solution epinephrine 0.3 mg/0.3 mL 0.3 mg IM DIRECTED PRN Allergic 11/04/24 05/23/25 injection, auto-injector (EpiPen) Reaction lansoprazole 30 mg delayed 30 mg PO QAM 11/04/24 05/23/25 release,disintegrating tablet (Prevacid SoluTab) [id number] carb-vit K 1 tab PO DAILY 11/04/24 05/23/25 18 mg iron-400 mcg-500 mg tablet (Women's One Daily) nutritional supplements 105 ea feeding tube DIRECTED 11/04/24 05/23/25 prochlorperazine maleate 5 mg 5 mg PO Q6H PRN NAUSEA/VOMITING 11/04/24 05/23/25 tablet (Compazine) scopolamine base 1 mg over 3 days 1 mg transdermal .Q72HRS 11/04/24 05/23/25 transdermal patch trazodone 50 mg tablet 50 mg PO HS Sleep 11/04/24 05/23/25 lidocaine 5 % topical patch 1 patch topical DAILY PRN Pain 05/23/25 05/23/25 nitrofurantoin 100 mg PO BID 05/23/25 05/23/25 monohydrate/macrocrystals 100 mg capsule Previous Rx's Medication Instructions Recorded baclofen 10 mg tablet 10 mg PO Q12H PRN hiccups #60 tabs 11/09/24 dicyclomine 10 mg capsule 10 mg PO QID PRN abdominal pain 11/09/24 #60 caps ondansetron 4 mg disintegrating 4 mg PO Q8H PRN Nausea And 11/09/24 tablet Vomiting #45 tabs prochlorperazine 25 mg rectal 25 mg AL Q12H PRN NAUSEA/VOMITING 11/09/24 suppository (Compazine) 15 days #0 ea Results & Data (ED) Vital Signs Vital Signs - 24 hr 05/23/25 15:31 05/23/25 15:50 05/23/25 15:50 Temperature 36.8 C Temperature Source Temporal Artery Scan Pulse Rate 117 H 86 79 Pulse Rhythm Regular Respiratory Rate 18 14 19 Respiratory Effort / Characteristics Non-Labored Spontaneous Respiratory Depth Normal Respiratory Pattern Regular Blood Pressure 118/87 111/86 Blood Pressure Mean 97 89 Pulse Oximetry 100 99 100 Oxygen Delivery Method Room Air Room Air Room Air Sepsis Recent Fever Within 48 Hours No Sepsis New/Unexplained Change in Mental Status N/A Sepsis Action Taken by Nursing No Action Required 05/23/25 16:00 05/23/25 16:00 05/23/25 16:16 Temperature Temperature Source Pulse Rate 83 80 83 Pulse Rhythm Respiratory Rate 23 16 Respiratory Effort / Characteristics Respiratory Depth Respiratory Pattern Blood Pressure 106/74 106/74 Blood Pressure Mean 79 79 Pulse Oximetry 99 99 Oxygen Delivery Method Room Air Room Air Sepsis Recent Fever Within 48 Hours Sepsis New/Unexplained Change in Mental Status Sepsis Action Taken by Nursing 05/23/25 16:49 05/23/25 17:19 05/23/25 17:30 Temperature Temperature Source Pulse Rate 68 72 92 H Pulse Rhythm Respiratory Rate 20 17 24 Respiratory Effort / Characteristics Respiratory Depth Respiratory Pattern Blood Pressure 91/63 L 112/53 L 103/57 L Blood Pressure Mean 71 74 79 Pulse Oximetry 98 99 96 Oxygen Delivery Method Room Air Room Air Room Air Sepsis Recent Fever Within 48 Hours Sepsis New/Unexplained Change in Mental Status Sepsis Action Taken by Nursing 05/23/25 18:00 05/23/25 18:30 Temperature Temperature Source Pulse Rate 78 94 H Pulse Rhythm Respiratory Rate 19 20 Respiratory Effort / Characteristics Respiratory Depth Respiratory Pattern Blood Pressure 96/62 L 98/65 L Blood Pressure Mean 72 74 Pulse Oximetry 100 98 Oxygen Delivery Method Room Air Room Air Sepsis Recent Fever Within 48 Hours Sepsis New/Unexplained Change in Mental Status Sepsis Action Taken by Nursing Laboratory Data 05/23/25 16:00 05/23/25 16:00 Lab Results 05/23/25 05/23/25 05/23/25 Range/Units 15:53 16:00 17:38 WBC 10.12 (4.8-10.8) K/ul RBC 2.58 L (4.20-5.40) M/uL Hgb 7.9 L (12.0-16.0) g/dL Hct 23.4 L (37.0-47.0) % MCV 90.7 (80.0-100.0) fL MCH 30.6 (25.0-34.0) pg MCHC 33.8 (32.0-36.0) g/dL RDW Std Deviation 40.4 (36.4-46.3) fL RDW Coeff of Aysha 12.6 (11.5-14.5) % Plt Count 220 (130-400) K/uL MPV 12.8 H (9.4-12.4) fL Immature Gran % (Auto) 0.7 % Neut % (Auto) 66.5 % Lymph % (Auto) 25.9 % Weber % (Auto) 5.6 % Eos % (Auto) 0.5 % Baso % (Auto) 0.8 % Neut # (Auto) 6.73 H (1.40-6.50) K/uL Lymph # (Auto) 2.62 (1.20-3.40) K/uL Weber # (Auto) 0.57 (0.11-0.59) K/uL Eos # (Auto) 0.05 (0.00-0.50) K/uL Baso # (Auto) 0.08 (0.00-0.20) K/uL Immature Gran # (Auto) 0.07 (0.01-0.20) K/uL Polychromasia 1+ PT Cancelled INR Cancelled Sodium 138 (136-145) mmol/L Potassium 3.1 L (3.5-5.1) mmol/L Chloride 105 (98-107) mmol/L Carbon Dioxide 23 (21-32) mmol/L Anion Gap 10 (3-11) BUN 30 H (6-23) mg/dl Creatinine 0.75 (0.6-1.2) mg/dl Est Cr Clr Drug Dosing 68.6 ml/min eGFR 93.96 BUN/Creatinine Ratio 40.0 H (10-20) Glucose 162 H (70-99(Fasting)) mg/dl Calcium 8.8 (8.6-10.3) mg/dl Magnesium 1.6 L (1.7-2.4) mg/dl Iron 53 (35-150) mcg/dl Unsaturated IBC 354 (155-355) mcg/dl Total Bilirubin 0.3 (0.2-1.0) mg/dl AST 16 (13-39) U/L ALT 10 (7-52) U/L Alkaline Phosphatase 49 (34-104) U/L Troponin I High Sens < 2.3 (0-14) pg/ml Total Protein 6.6 (6.0-8.3) gm/dl Albumin 4.2 (3.4-5.0) gm/dl Globulin 2.4 L (2.5-4.0) gm/dl Albumin/Globulin Ratio 1.8 (0.9-2) Urine Color Yellow Urine Appearance Clear (Clear) Urine pH 5.0 (4.5-7.5) Ur Specific [place] 1.027 (1.000-1.030) Urine Protein Trace H (Negative) Urine Glucose (UA) Negative (Negative) Urine Ketones Trace H (Negative) Urine Blood Negative (Negative) Urine Nitrite Negative (Negative) Urine Bilirubin Negative (Negative) Urine Urobilinogen Negative (Negative) Ur Leukocyte Esterase 2+ H (Negative) Urine WBC (Auto) 6-10 H (0-5) /hpf Urine RBC (Auto) 0-2 (0-2) /hpf U Hyaline Cast (Auto) 3-5 H (0-2) /lpf U Epithel Cells (Auto) 3-5 H (0-2) /hpf Urine Bacteria (Auto) None Seen (None Seen) Urine Comment Adenovirus (PCR) Not Detected (NotDetected) B. pertussis DNA (PCR) Not Detected (NotDetected) B.parapertussis DNA PCR Not Detected (NotDetected) C. pneumoniae DNA (PCR) Not Detected (NotDetected) Coronavirus OC43 (PCR) Not Detected (NotDetected) Coronavirus HKU1 (PCR) Not Detected (NotDetected) Coronavirus 229E (PCR) Not Detected (NotDetected) SARS-CoV-2 (PCR) Not Detected (NotDetected) Coronavirus NL63 (PCR) Not Detected (NotDetected) Human Metapneumovir PCR Not Detected (NotDetected) Influenza Type A (PCR) Not Detected (NotDetected) Influenza Type B (PCR) Not Detected (NotDetected) M. pneumoniae (PCR) Not Detected (NotDetected) Parainfluenza 1 (PCR) Not Detected (NotDetected) Parainfluenza 2 (PCR) Not Detected (NotDetected) Parainfluenza 3 (PCR) Not Detected (NotDetected) Parainfluenza 4 (PCR) Not Detected (NotDetected) RSV (PCR) Not Detected (NotDetected) Entero/Rhino (PCR) Not Detected (NotDetected) Blood Type O Positive Antibody Screen NEGATIVE 05/23/25 Range/Units 17:42 WBC (4.8-10.8) K/ul RBC (4.20-5.40) M/uL Hgb (12.0-16.0) g/dL Hct (37.0-47.0) % MCV (80.0-100.0) fL MCH (25.0-34.0) pg MCHC (32.0-36.0) g/dL RDW Std Deviation (36.4-46.3) fL RDW Coeff of Aysha (11.5-14.5) % Plt Count (130-400) K/uL MPV (9.4-12.4) fL Immature Gran % (Auto) % Neut % (Auto) % Lymph % (Auto) % Weber % (Auto) % Eos % (Auto) % Baso % (Auto) % Neut # (Auto) (1.40-6.50) K/uL Lymph # (Auto) (1.20-3.40) K/uL Weber # (Auto) (0.11-0.59) K/uL Eos # (Auto) (0.00-0.50) K/uL Baso # (Auto) (0.00-0.20) K/uL Immature Gran # (Auto) (0.01-0.20) K/uL Polychromasia PT 10.8 INR 1.0 Sodium (136-145) mmol/L Potassium (3.5-5.1) mmol/L Chloride (98-107) mmol/L Carbon Dioxide (21-32) mmol/L Anion Gap (3-11) BUN (6-23) mg/dl Creatinine (0.6-1.2) mg/dl Est Cr Clr Drug Dosing ml/min eGFR BUN/Creatinine Ratio (10-20) Glucose (70-99(Fasting)) mg/dl Calcium (8.6-10.3) mg/dl Magnesium (1.7-2.4) mg/dl Iron (35-150) mcg/dl Unsaturated IBC (155-355) mcg/dl Total Bilirubin (0.2-1.0) mg/dl AST (13-39) U/L ALT (7-52) U/L Alkaline Phosphatase (34-104) U/L Troponin I High Sens (0-14) pg/ml Total Protein (6.0-8.3) gm/dl Albumin (3.4-5.0) gm/dl Globulin (2.5-4.0) gm/dl Albumin/Globulin Ratio (0.9-2) Urine Color Urine Appearance (Clear) Urine pH (4.5-7.5) Ur Specific [place] (1.000-1.030) Urine Protein (Negative) Urine Glucose (UA) (Negative) Urine Ketones (Negative) Urine Blood (Negative) Urine Nitrite (Negative) Urine Bilirubin (Negative) Urine Urobilinogen (Negative) Ur Leukocyte Esterase (Negative) Urine WBC (Auto) (0-5) /hpf Urine RBC (Auto) (0-2) /hpf U Hyaline Cast (Auto) (0-2) /lpf U Epithel Cells (Auto) (0-2) /hpf Urine Bacteria (Auto) (None Seen) Urine Comment Adenovirus (PCR) (NotDetected) B. pertussis DNA (PCR) (NotDetected) B.parapertussis DNA PCR (NotDetected) C. pneumoniae DNA (PCR) (NotDetected) Coronavirus OC43 (PCR) (NotDetected) Coronavirus HKU1 (PCR) (NotDetected) Coronavirus 229E (PCR) (NotDetected) SARS-CoV-2 (PCR) (NotDetected) Coronavirus NL63 (PCR) (NotDetected) Human Metapneumovir PCR (NotDetected) Influenza Type A (PCR) (NotDetected) Influenza Type B (PCR) (NotDetected) M. pneumoniae (PCR) (NotDetected) Parainfluenza 1 (PCR) (NotDetected) Parainfluenza 2 (PCR) (NotDetected) Parainfluenza 3 (PCR) (NotDetected) Parainfluenza 4 (PCR) (NotDetected) RSV (PCR) (NotDetected) Entero/Rhino (PCR) (NotDetected) Blood Type Antibody Screen Administered Medications Dextrose/Sodium Chloride (D5w And Nss) 1,000 mls @ 80 mls/hr IV .[id number] CASANDRA Stop: 05/25/25 08:14 Last Admin: 05/23/25 19:11 Dose: 80 mls/hr Documented By: GERMÁN Discontinued Medications Sodium Chloride (Nss) 1,000 mls @ 999 mls/hr IV .Q1H1M ONE Stop: 05/23/25 16:40 Last Infusion: 05/23/25 18:23 Dose: Infused Documented By: Admin: 05/23/25 15:57 Dose: 999 mls/hr Documented By: AMPARO Sodium Chloride (Nss) 500 mls @ 999 mls/hr IV .Q31M ONE Stop: 05/23/25 16:44 Last Infusion: 05/23/25 18:41 Dose: Infused Documented By: Admin: 05/23/25 17:57 Dose: 999 mls/hr Documented By: AMPARO Magnesium Sulfate/Dextrose (Magnesium Sulfate / D5w) 1 gm in 100 mls @ 100 mls/hr IV NOW STA Stop: 05/23/25 17:38 Last Infusion: 05/23/25 18:41 Dose: Infused Documented By: Admin: 05/23/25 17:24 Dose: 100 mls/hr Documented By: AMPARO Potassium Chloride (K Teryr / Wtr) 10 meq in 100 mls @ 100 mls/hr IV Q1H CASANDRA Stop: 05/23/25 18:44 Last Admin: 05/23/25 18:36 Dose: 100 mls/hr Documented By: Infusion: 05/23/25 18:24 Dose: Infused Documented By: Admin: 05/23/25 17:24 Dose: 100 mls/hr Documented By: AMPARO Acetaminophen (Ofirmev) 1,000 mg in 100 mls @ 400 mls/hr IV NOW STA Stop: 05/23/25 17:55 Last Infusion: 05/23/25 18:37 Dose: Infused Documented By: Admin: 05/23/25 17:56 Dose: 400 mls/hr Documented By: AMPARO Ioversol (Optiray 320 100ml) 93 ml IV ONCE ONE Stop: 05/23/25 19:03 Last Admin: 05/23/25 19:02 Dose: 93 ml Documented By: MIKE Ondansetron HCl (Ondansetron Inj 2 Mg/Ml 2 Ml Vial) 4 mg IV NOW STA Stop: 05/23/25 16:15 Last Admin: 05/23/25 16:21 Dose: 4 mg Documented By: AMPARO Imaging Data Radiologist's Impression: Chest X-Ray 05/23/25 15:41 EXAM: X-ray chest one-view portable CLINICAL HISTORY: Dizziness PRIORS: 11/04/2024 TECHNIQUE: AP portable semierect FINDINGS: The chest is well-expanded. No airspace consolidation, effusion or congestive changes. Heart size is normal. No pneumothorax. Trachea is patent. Osseous structures demonstrate no acute abnormality. No radiopaque foreign body. IMPRESSION: No plain film evidence of an acute cardiopulmonary process. Electronically signed by Elisa Ribera 05-23-2025 4:45 PM Discharge Plan Visit Data Chief Complaint: Syncope (Near Syncope) Stated Complaint: HAS UTI, DEHYDRATED, NEAR SYNCOPE ED Provider: Yuliana Lomlei Discharge Problem: Nausea & vomiting, Acute hypokalemia, Hypomagnesemia, Syncope and collapse, Symptomatic anemia Patient Disposition: Admitted As Inpatient Condition: Fair Forms Stand Alone Forms: [facility] [employer] Prescriptions Prescriptions: No Action sertraline 100 mg tablet 200 mg PO DAILY Patient Comments: 05/23- hasnt taking today clonazepam 1 mg tablet 1 mg PO DAILY Patient Comments: 05/23- per pt has been taking 1 full tablet daily and later in the day she takes 1/2 for her pain nitrofurantoin monohyd/m-cryst 100 mg capsule 100 mg PO BID Patient Comments: only has had 3 doses so far lidocaine 5 % adhesive patch,medicated 1 patch topical DAILY PRN (Reason: Pain) Rx Instructions: leave on most painful area for up to 12 hrs acetaminophen [Tylenol] 325 mg Tablet 650 mg PO DIRECTED PRN (Reason: PAIN, MILD-MODERATE) trazodone 50 mg tablet 50 mg PO HS nutritional supplements Liquid 105 ea feeding tube DIRECTED Patient Comments: 05/23- per pt she cut down to 3 containers as she felt 4 containers was too much Rx Instructions: ADMINISTER 4 CONTAINERS AT 105 ML/HOUR DAILY AT TOLERATED. prochlorperazine maleate [Compazine] 5 mg Tablet 5 mg PO Q6H PRN (Reason: NAUSEA/VOMITING) cyanocobalamin (vitamin B-12) 1,000 mcg/mL Solution 1,000 mcg SUBCUT .Q12WKS Patient Comments: 05/23- per pt, she is due for injection epinephrine [EpiPen] 0.3 mg/0.3 mL Auto-Injector 0.3 mg IM DIRECTED PRN (Reason: Allergic Reaction) scopolamine base 1 mg over 3 days patch 3 day 1 mg transdermal .Q72HRS Women's One Daily 18 mg iron-400 mcg-500 mg Tablet 1 tab PO DAILY lansoprazole [Prevacid SoluTab] 30 mg tablet,disintegrat, delay rel 30 mg PO QAM dicyclomine 10 mg Capsule 10 mg PO QID PRN (Reason: abdominal pain) Qty: 60 0RF prochlorperazine [Compazine] 25 mg Suppository 25 mg AL Q12H PRN (Reason: NAUSEA/VOMITING) 15 Days Qty: 0 0RF ondansetron 4 mg tablet,disintegrating 4 mg PO Q8H PRN (Reason: Nausea And Vomiting) Qty: 45 0RF baclofen 10 mg tablet 10 mg PO Q12H PRN (Reason: hiccups) Qty: 60 0RF Referrals Referrals: Joey Crockett MD [Primary Care Provider] -
[2025-05-23 16:00] LABS: Appearance Urine Clear (Clear); Bacteria Urine Automated None Seen (None Seen); Glucose Urine UA Negative (Negative); RBC Urine Automated 0-2 /hpf (0-2)
[2025-05-23 16:18] LABS: Hematocrit (blood only) 23.4 % (37.0-47.0); Hemoglobin 7.9 g/dL (12.0-16.0); Immature Granulocytes # (auto) 0.07 K/uL (0.01-0.20); Immature Granulocytes % (auto) 0.7 %; Mean Corpuscular Hemoglobin 30.6 pg (25.0-34.0); Mean Corpuscular Volume 90.7 fL (80.0-100.0); Platelet Count 220 K/uL (130-400); RDW Standard Deviation 40.4 fL (36.4-46.3); Red Blood Count 2.58 M/uL (4.20-5.40); White Blood Count 10.12 K/ul (4.8-10.8)
[2025-05-23] MEDS: ONDANSETRON INJ 2 MG/ML 2 ML VIAL IV STA (16:21)
[2025-05-23 16:35] LABS: Polychromasia 1+
[2025-05-23 16:36] LABS: Alanine Aminotransferase 10 U/L (7-52); Albumin Globulin Ratio 1.8 (0.9-2); Albumin Level 4.2 gm/dl (3.4-5.0); Alkaline Phosphatase 49 U/L (34-104); Anion Gap 10 (3-11); Bilirubin,Total 0.3 mg/dl (0.2-1.0); Blood Urea Nitrogen 30 mg/dl (6-23); Calcium 8.8 mg/dl (8.6-10.3); Carbon Dioxide 23 mmol/L (21-32); Chloride 105 mmol/L (98-107); Creatinine Clr Calc Pharmacy 68.6 ml/min; Globulin 2.4 gm/dl (2.5-4.0); Glucose 162 mg/dl (70-99(Fasting)); Magnesium 1.6 mg/dl (1.7-2.4); Potassium 3.1 mmol/L (3.5-5.1); Sodium 138 mmol/L (136-145); Total Protein 6.6 gm/dl (6.0-8.3)
--- NOTE | 2025-05-23 16:45 | XRay Report ---
EXAM: X-ray chest one-view portable CLINICAL HISTORY: Dizziness PRIORS: 11/04/2024 TECHNIQUE: AP portable semierect FINDINGS: The chest is well-expanded. No airspace consolidation, effusion or congestive changes. Heart size is normal. No pneumothorax. Trachea is patent. Osseous structures demonstrate no acute abnormality. No radiopaque foreign body. IMPRESSION: No plain film evidence of an acute cardiopulmonary process. Electronically signed by Elisa Ribera 05-23-2025 4:45 PM
[2025-05-23 17:03] LABS: Chlamydia pneumoniae PCR Not Detected (NotDetected); Coronavirus 229E PCR Not Detected (NotDetected); Coronavirus CoV-2 (COVID19)PCR Not Detected (NotDetected); Coronavirus HKU1 PCR Not Detected (NotDetected); Coronavirus NL63 PCR Not Detected (NotDetected); Coronavirus OC43PCR Not Detected (NotDetected); Human Metapneumovirus PCR Not Detected (NotDetected); Parainfluenza Virus 1 PCR Not Detected (NotDetected); Parainfluenza Virus 2 PCR Not Detected (NotDetected); Parainfluenza Virus 3 PCR Not Detected (NotDetected); Parainfluenza Virus 4 PCR Not Detected (NotDetected); Respiratory Syncytial VirusPCR Not Detected (NotDetected); Rhinovirus/Enterovirus PCR Not Detected (NotDetected)
[2025-05-23] MEDS: POTASSIUM CHLORIDE / WTR 10 MEQ/100 ML PLCT IV SCH (17:24)
[2025-05-23] MEDS: MAGNESIUM SULFATE / D5W 1 GM/100 ML BAG IV STA (17:24)
[2025-05-23] MEDS: ACETAMINOPHEN 1,000 MG/100 ML VIAL IV STA (17:56)
[2025-05-23] MEDS: SODIUM CHLORIDE 0.9% 500 ML IV ONE (17:57)
[2025-05-23 18:27] LABS: INR 1.0 (0.9-1.1); Prothrombin Time 10.8 Seconds (9.0-12.0)
--- NOTE | 2025-05-23 18:47 | History & Physical Report ---
Date of Service May 23, 2025 Assessment & Plan (1) Symptomatic anemia: Plan: Has been complaining of right sided abdominal pain for 3 days Has not been eating or drinking for the last 3 days and not being fed through the PEG tube No history of hematemesis and/or melena Noted to have hemoglobin of 7.9 it dropped from 14 in March Presyncope likely secondary to low hemoglobin and weakness Will check his stool for Hemoccult Check H&H and give blood transfusion if hemoglobin drops below 7 Will check iron B12 level (2) Syncope and collapse: Plan: Likely secondary to dehydration and low hemoglobin No loss of consciousness and no injury (3) Right sided abdominal pain: Plan: Has been complaining of right-sided abdominal pain for the last 3 days There is no abdominal distention but did complain some pain in the right renal angle Recent UTI on Macrobid Awaiting CT of the abdomen pelvis (4) Urinary tract infection: Plan: Recent UTI on Macrobid UA is suggestive of infection, will send it for culture and start Intravenous ceftriaxone (5) Hypomagnesemia: (6) Acute hypokalemia: Plan: Electrolyte imbalance Secondary to not been eating drinking for the last 3 days/no PEG feeding either No been eating or drinking Will give supplement and recheck in the morning (7) Gastrostomy present: Plan: History of Maryuri-en-Y gastrectomy and subsequent PEG tube placement for feeding Will continue PEG tube feeding from tomorrow no improvement of her symptoms After getting CT scan report (8) GERD (gastroesophageal reflux disease): Plan: Will give intravenous Protonix given the history of poor hemoglobin and abdominal pain (9) Moderate protein-calorie malnutrition: (10) History of hemorrhagic cerebrovascular accident (CVA) with residual deficit: Plan: No acute issues (11) Anxiety: (12) Pulmonary embolism: Plan: Not on any anticoagulation Plan DVT prophylaxis SCDs now and after ruling out any bleeding can start subcu heparin CODE STATUS Full History of Present Illness Chief Complaint: Right mid abdominal pain for 3 days with presyncope today Primary Care Provider: Joey Crockett MD She is a 55-year-old female with significant past medical history of prediabetes, history of sleep apnea, history of severe protein calorie malnutrition, history of persistent nausea and vomiting, past Maryuri-en-Y gastric surgery with postgastrectomy syndrome and status post peg tube feeding, GERD, depression and also history of pulmonary embolism in 2018 currently not on anticoagulation and also history of left basal ganglia hemorrhagic CVA requiring craniotomy in October 2022 with eventual cranioplasty in March 2023 has been complaining of right mid abdominal pain for the last 3 days. Pain is constant with occasional exacerbation and complains of pain in the right renal angle as well. No abdominal distention and has persistent nausea but no vomiting. No fever and no chills and she has been taking Macrobid for recent UTI and is still has some burning sensation during micturition. Apparently she has not been eating or drinking and not having any PEG tube feeding for the last 3 days While outside today she felt weak and lethargic and almost fainted and after that point she was brought into the emergency room. Denies any hematemesis and/or melena. In the ER she was noted to have significant electrolyte imbalance and also hemoglobin was very low at 7.9 from 14 in March. He was admitted to medical telemetry unit for continuation of care Allergies Allergy/AdvReac Type Severity Reaction Status Date / Time No Known Allergies Allergy Verified 05/23/25 17:05 Home Medications Medication Instructions Recorded Confirmed Type sertraline 100 mg tablet 200 mg PO DAILY 05/01/24 05/23/25 History clonazepam 1 mg tablet 1 mg PO DAILY 06/27/24 05/23/25 History acetaminophen 325 mg tablet 650 mg PO DIRECTED PRN PAIN, 11/04/24 05/23/25 History (Tylenol) MILD-MODERATE cyanocobalamin (vitamin B-12) 1,000 mcg subcut .Q12WKS 11/04/24 05/23/25 History 1,000 mcg/mL injection solution epinephrine 0.3 mg/0.3 mL 0.3 mg IM DIRECTED PRN Allergic 11/04/24 05/23/25 History injection, auto-injector (EpiPen) Reaction lansoprazole 30 mg delayed 30 mg PO QAM 11/04/24 05/23/25 History release,disintegrating tablet (Prevacid SoluTab) [id number] carb-vit K 1 tab PO DAILY 11/04/24 05/23/25 History 18 mg iron-400 mcg-500 mg tablet (Women's One Daily) nutritional supplements 105 ea feeding tube DIRECTED 11/04/24 05/23/25 History prochlorperazine maleate 5 mg 5 mg PO Q6H PRN NAUSEA/VOMITING 11/04/24 05/23/25 History tablet (Compazine) scopolamine base 1 mg over 3 days 1 mg transdermal .Q72HRS 11/04/24 05/23/25 History transdermal patch trazodone 50 mg tablet 50 mg PO HS Sleep 11/04/24 05/23/25 History baclofen 10 mg tablet 10 mg PO Q12H PRN hiccups #60 tabs 11/09/24 05/23/25 Rx dicyclomine 10 mg capsule 10 mg PO QID PRN abdominal pain 11/09/24 05/23/25 Rx #60 caps ondansetron 4 mg disintegrating 4 mg PO Q8H PRN Nausea And 11/09/24 05/23/25 Rx tablet Vomiting #45 tabs prochlorperazine 25 mg rectal 25 mg MA Q12H PRN NAUSEA/VOMITING 11/09/24 05/23/25 Rx suppository (Compazine) 15 days #0 ea lidocaine 5 % topical patch 1 patch topical DAILY PRN Pain 05/23/25 05/23/25 History nitrofurantoin 100 mg PO BID 05/23/25 05/23/25 History monohydrate/macrocrystals 100 mg capsule Past Med/Surg History Problem List (Updated 05/23/25 @ 18:43 by Ayanna Lubin MD) Right sided abdominal pain Symptomatic anemia (Acute) Syncope and collapse (Acute) Hypomagnesemia (Acute) Acute hypokalemia (Acute) Nausea & vomiting (Acute) Chronic nausea Palliative care by specialist Left sided abdominal pain (Acute) Left lower quadrant abdominal pain (Acute) Taste perversion Gastrostomy present (Acute) Leukocytosis (Acute) Intractable nausea and vomiting (Acute) Unintentional weight loss Moderate protein-calorie malnutrition History of hemorrhagic cerebrovascular accident (CVA) with residual deficit occasional exp aphasia ESTEBAN (obstructive sleep apnea) (Chronic) GERD (gastroesophageal reflux disease) (Chronic) Depression (Chronic) Anxiety Medical History Pulmonary embolism Endometriosis Hemorrhagic stroke Surgical History History of Maryuri-en-Y gastric bypass H/O wisdom tooth extraction History of partial colectomy History of hysterectomy Hx of cholecystectomy History of appendectomy H/O craniotomy Social History Smoking Status: Never smoker Tobacco Type: E-cigarettes / Vaping Second Hand Exposure: No; Do You Dip or Chew Tobacco: No; Hx Alcohol Use: No Hx Substance Use: Yes Last Used Substance: Days (ago) Last Used Substance Other:: 2 months ago Substance Use Type Other:: medical marijuana Preferred Language: Russian 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 Ability: Effective Museum Service Scheduler Required: No Beliefs That Will Affect Care: None Current Living Situation: Spouse Feels Safe at Home: Yes Assistive Devices: None Review of Systems Review of Systems: All systems reviewed and are unremarkable except as noted below Physical Exam Physical Exam: Lying in bed without any acute distress but looks pale Constitutional: + ill appearing and + thin Eyes: PERRL, conjunctivae normal, anicteric sclerae ENMT: external ear and nose normal, oropharynx normal Neck: trachea midline, no thyromegaly Respiratory: no respiratory distress Auscultation: lungs clear to auscultation bilaterally Cardiovascular: Rate/Rhythm: regular rate and regular rhythm; not tachycardic Heart Sounds: normal S1 and normal S2; no murmur Extremities: no edema Gastrointestinal (Abdomen): Inspection/Auscultation: normal bowel sounds; abdomen not distended Percussion/Palpation: + abdomen tender (Mildly tender right mid abdomen without guarding no rigidity) PEG tube site is intact without any drainage Musculoskeletal: No acute arthritis involving any of the joint Neurologic: normal touch/pain/proprioception and moves all extremities; no focal motor deficits Lymphatic: no cervical or axillary lymphadenopathy Results & Data Results & Data Vital Signs (Past 12 Hours) Vital Signs Temp Pulse Resp BP Pulse Ox O2 Del Method 05/23/25 17:30 92 H 24 103/57 L 96 Room Air 05/23/25 17:19 72 17 112/53 L 99 Room Air 05/23/25 16:49 68 20 91/63 L 98 Room Air 05/23/25 16:16 83 05/23/25 16:00 80 16 106/74 99 Room Air 05/23/25 16:00 83 23 106/74 99 Room Air 05/23/25 15:50 79 19 111/86 100 Room Air 05/23/25 15:50 86 14 99 Room Air 05/23/25 15:31 36.8 C 117 H 18 118/87 100 Room Air Laboratory Results Short CBC 05/23/25 Range/Units 16:00 WBC 10.12 (4.8-10.8) K/ul Hgb 7.9 L (12.0-16.0) g/dL Hct 23.4 L (37.0-47.0) % Plt Count 220 (130-400) K/uL BMP 05/23/25 16:00 Sodium 138 Potassium 3.1 L Chloride 105 Carbon Dioxide 23 BUN 30 H Creatinine 0.75 Glucose 162 H Calcium 8.8 Liver Function 05/23/25 Range/Units 16:00 Total Bilirubin 0.3 (0.2-1.0) mg/dl AST 16 (13-39) U/L ALT 10 (7-52) U/L Alkaline Phosphatase 49 (34-104) U/L Albumin 4.2 (3.4-5.0) gm/dl Urine 05/23/25 Range/Units 15:53 Urine Color Yellow Urine Appearance Clear (Clear) Urine pH 5.0 (4.5-7.5) Ur Specific [place] 1.027 (1.000-1.030) Urine Protein Trace H (Negative) Urine Glucose (UA) Negative (Negative) Medications Administered Current Inpatient Medications Potassium Chloride (K Terry / Wtr) 10 meq in 100 mls @ 100 mls/hr IV Q1H CASANDRA Stop: 05/23/25 18:44 Last Admin: 05/23/25 18:36 Dose: 100 mls/hr Pantoprazole Sodium (Protonix) 40 mg in 10 mls @ 5 mls/min IV BID CASANDRA Stop: 06/22/25 20:59 Dextrose/Sodium Chloride (D5w And Nss) 1,000 mls @ 80 mls/hr IV .[id number] CASANDRA Stop: 05/25/25 08:14 Code Status & VTE Plan VTE Prophylaxis Plan VTE Prophylaxis will be ordered: Yes (4) Urinary tract infection Hematuria presence: without hematuria Urinary tract infection type: site unspecified Qualified Code(s): N39.0 - Urinary tract infection, site not specified
[2025-05-23] MEDS: OPTIRAY 320 100ml IV ONE (19:02)
[2025-05-23] MEDS: D5W AND NSS 1,000 ML IV SCH (19:11)
[2025-05-23 19:15] LABS: Iron 53 mcg/dl (35-150)
[2025-05-23 19:35] LABS: Ferritin 17.5 ng/ml (8-388)
[2025-05-23 19:41] LABS: Folate (Folic Acid),Ser orPlas 11.75 ng/ml (>5.38)
[2025-05-23 19:42] LABS: Vitamin B12 302.0 pg/ml (180-914)
--- NOTE | 2025-05-23 19:54 | CT Scan Report ---
EXAMINATION: Abdomen and pelvis CT with CLINICAL HISTORY: Nausea, UTI, abdominal pain x 3 days PRIORS: 11/24/2024, dating back to 04/27/2024 TECHNIQUE: Contiguous axial images were obtained through the abdomen and pelvis with the use of intravenous contrast. Sagittal and coronal reformations are supplied. FINDINGS: Bilateral breast implants present. Lung bases unremarkable. Postsurgical change of the stomach noted. Percutaneous gastrostomy tube present distal to the surgical change with balloon inflated and no surrounding inflammatory change. The liver, portal vein, pancreas, spleen, adrenals, aorta and IVC are morphologically unremarkable. The kidneys enhance symmetrically. Exophytic small right renal cyst measuring 12 mm. Urinary bladder distends normally. No wall thickening. Mild bilateral pelviectasis present, appearing in the interval. Kidneys enhance symmetrically. No striated nephrograms. No obstructing renal calculus. Extremely large amount of formed stool and gas present throughout the colon. No free fluid in the abdomen or pelvis. No adenopathy. Sigmoid colon anastomosis with no surrounding fluid or gas. Uterus is not identified. Osseous demineralization noted. IMPRESSION: 1. No CT evidence of an acute abdominal or pelvic abnormality. 2. Mild bilateral pelviectasis with no obstructing renal calculus or urinary bladder wall thickening. 3. Large amount of formed stool throughout the colon with no dilated loops of bowel. Postsurgical change of the sigmoid colon. ACT 112: Positive. There are findings on this examination that require communication between the performing entity and the patient following Patient Test Result Information Act ([place] ACT 112) guidelines. Electronically signed by Elisa Ribera 05-23-2025 7:53 PM
[2025-05-23 20:02] LABS: Hematocrit (blood only) 20.4 % (37.0-47.0); Hemoglobin 6.9 g/dL (12.0-16.0)
[2025-05-23] MEDS ORDERED: SODIUM CHLORIDE 0.9% 100 ML IV PRN (20:08)
--- NOTE | 2025-05-23 20:20 | Electrocardiogram Report ---
Test Reason : Blood Pressure : */* mmHG Vent. Rate : 84 BPM Atrial Rate : 84 BPM P-R Int : 162 ms QRS Dur : 80 ms QT Int : 360 ms P-R-T Axes : 73 75 69 degrees QTcB Int : 425 ms Normal sinus rhythm Normal ECG When compared with ECG of 08-Nov-2024 09:43, No significant change was found Confirmed by Angelina Luciano (Tanya) on 05/23/2025 8:20:27 PM Referred By: Confirmed By: Angelina Luciano
[2025-05-23] MEDS: cefTRIAXone SODIUM 2,000 MG/50 ML BAG IV ONE (20:26)
[2025-05-23] MEDS: PANTOprazole 40 MG/10 ML SYR IV SCH (20:26)
[2025-05-23] MEDS: ACETAMINOPHEN 325 MG TAB PO STA (20:40)
[2025-05-23] MEDS ORDERED: NON-FORMULARY MEDICATION (Nutritional Supplements Liquid) feeding tube SCH (21:03)
[2025-05-23] MEDS ORDERED: REMOVE LIDODERM PATCH SCH (21:03)
[2025-05-23] MEDS ORDERED: BACLOFEN 10 MG TAB PEG PRN (21:03)
[2025-05-23] MEDS ORDERED: LIDOCAINE 5% 1 PATCH TD PRN (21:03)
[2025-05-23] MEDS: LANSOPRAZOLE 30 MG SOLTAB PEG SCH (22:02)
[2025-05-23] MEDS: clonazePAM 1 MG TAB PO SCH (22:02)
[2025-05-24] MEDS: SODIUM CHLORIDE 0.9% 250 ML IV ONE (00:35)
[2025-05-24] MEDS: ACETAMINOPHEN 1,000 MG/100 ML VIAL IV PRN (04:03)
[2025-05-24] MEDS: SODIUM CHLORIDE 0.9% 500 ML IV ONE (05:28)
[2025-05-24 06:04] LABS: Hematocrit (blood only) 22.7 % (37.0-47.0); Hemoglobin 7.5 g/dL (12.0-16.0); Immature Granulocytes # (auto) 0.03 K/uL (0.01-0.20); Immature Granulocytes % (auto) 0.4 %; Mean Corpuscular Hemoglobin 29.5 pg (25.0-34.0); Mean Corpuscular Volume 89.4 fL (80.0-100.0); Platelet Count 127 K/uL (130-400); RDW Standard Deviation 42.5 fL (36.4-46.3); Red Blood Count 2.54 M/uL (4.20-5.40); White Blood Count 7.29 K/ul (4.8-10.8)
[2025-05-24 06:20] LABS: Alanine Aminotransferase 6.0 U/L (7-52); Albumin Globulin Ratio 1.8 (0.9-2); Albumin Level 2.8 gm/dl (3.4-5.0); Alkaline Phosphatase 29.0 U/L (34-104); Anion Gap 4.0 (3-11); Bilirubin,Total 0.3 mg/dl (0.2-1.0); Blood Urea Nitrogen 14.0 mg/dl (6-23); Calcium 7.3 mg/dl (8.6-10.3); Carbon Dioxide 23.0 mmol/L (21-32); Chloride 114.0 mmol/L (98-107); Creatinine Clr Calc Pharmacy 109.3 ml/min; Globulin 1.6 gm/dl (2.5-4.0); Glucose 105.0 mg/dl (70-99(Fasting)); Magnesium 1.8 mg/dl (1.7-2.4); Potassium 3.7 mmol/L (3.5-5.1); Sodium 141.0 mmol/L (136-145); Total Protein 4.4 gm/dl (6.0-8.3)
[2025-05-24 06:27] LABS: Basophilic Stippling 1+; Polychromasia 1+
[2025-05-24 07:08] LABS: Hematocrit (blood only) 24.2 % (37.0-47.0); Hemoglobin 8.3 g/dL (12.0-16.0)
[2025-05-24 08:41] LABS: Reticulocytes # 0.090 10^6/uL (0.020-0.100)
[2025-05-24 08:45] LABS: Thyroid Stimulating Hormone 1.623 uIu/ml (0.300-4.500)
[2025-05-24] MEDS: SERTRALINE HCL 100 MG TABLET PEG SCH (08:54)
[2025-05-24] MEDS ORDERED: clonazePAM 1 MG TAB PO SCH (09:00)
--- NOTE | 2025-05-24 10:00 | Hospitalist Progress Note ---
Date of Service May 24, 2025 Assessment & Plan (1) Symptomatic anemia: (2) Syncope and collapse: (3) Right sided abdominal pain: Plan: 55-year-old female with significant past medical history of prediabetes, history of sleep apnea, history of severe protein calorie malnutrition, history of persistent nausea and vomiting, past Maryuri-en-Y gastric surgery with postgastrectomy syndrome and status post peg tube feeding, GERD, depression and also history of pulmonary embolism in 2018 currently not on anticoagulation and also history of left basal ganglia hemorrhagic CVA requiring craniotomy in October 2022 with eventual cranioplasty in March 2023 has been complaining of right mid abdominal pain Symptomatic anemia Possible GI bleed Has not been eating or drinking for the last 3 days and not being fed through the PEG tube Reports dark stool RN reported dark stool this AM On presentation, hemoglobin of 7.9 dropped from [address] abd/P did not show any acute abnormality. Noted mild b/l pelviectasis with no obstructing renal calculus or urinary bladder wall thickening. Large amount of stool throughout colon S/p 2 PRBC Hb is 8.3 this AM Monitor Hb Continue IV PPI Currently NPO awaiting GI eval Has chronic hypotension with SBP 90-100s. Got IV NSS bolus this AM. Continue IVF (4) Urinary tract infection: Plan: Recent UTI on Macrobid UA is suggestive of infection Continue IV ceftriaxone F/u Cx (5) Hypomagnesemia: (6) Acute hypokalemia: Plan: On admission, K was 3.1 and Mag 1.6 Repleted and K is Secondary to not been eating drinking for the last 3 days/no PEG feeding either No been eating or drinking Will give supplement and recheck in the morning K is 3.7 and mag is 1.8 (7) Gastrostomy present: Plan: History of Maryuri-en-Y gastrectomy and subsequent PEG tube placement for feeding Currently NPO Plan to resume tubefeeding once abler (8) GERD (gastroesophageal reflux disease): Plan: On IV PPI (9) Moderate protein-calorie malnutrition: (10) History of hemorrhagic cerebrovascular accident (CVA) with residual deficit: Plan: No acute issues (11) Anxiety: Plan DVT prophylaxis SCDs now CODE STATUS Full I spent a total of 55 minutes coordinating, documenting and providing care for this patient excluding time spent in performance of separately billed services Admission and Anticipated Discharge Date Admission Date: May 23, 2025 Subjective Patient seen and examined Reports chronic intermittent abd pain and dry heaves with tubefeeding, chronic anorexia by mouth Reports increased weakness, easy fatigability over the past week and dark stool in the past 2-3 days Reported some dysuria prior to admission but none todady Physical Exam Constitutional: + well hydrated; no acute distress Eyes: PERRL, conjunctivae normal, anicteric sclerae ENMT: external ear and nose normal, oropharynx normal Respiratory: normal respiratory effort, lungs clear to auscultation Cardiovascular: Rate/Rhythm: regular rate and regular rhythm Gastrointestinal (Abdomen): Soft, mild right sided tenderness, +feeding tube, normal bowel sounds Musculoskeletal: No pedal edema Neurologic: PERRL, EOMI, accommodation nl, no face palsy, no dysarthria Psychiatric: A+Ox3, euthymic affect Results & Data Results & Data Vital Signs (Past 12 Hours) Vital Signs Temp Pulse Pulse Resp BP BP Pulse Ox 05/24/25 07:34 36.8 C 61 16 90/57 L 97 05/24/25 07:26 62 05/24/25 05:55 36.4 C L 66 16 88/58 L 98 05/24/25 05:26 36.9 C 62 16 85/55 L 05/24/25 04:26 36.8 C 73 18 82/51 L 97 05/24/25 03:56 36.4 C L 62 16 89/57 L 96 05/24/25 03:42 36.9 C 63 18 80/43 L 97 05/24/25 03:41 36.9 C 64 18 72/46 L 98 05/24/25 03:25 36.8 C 68 18 83/51 L 99 05/24/25 02:58 36.9 C 67 18 83/50 L 98 05/24/25 02:57 36.9 C 67 18 83/50 L 98 05/24/25 01:53 36.8 C 77 18 86/60 L 97 05/24/25 00:53 36.8 C 76 18 85/57 L 98 05/24/25 00:23 36.7 C 73 18 82/54 L 99 05/24/25 00:08 36.7 C 63 18 83/52 L 98 05/23/25 23:53 36.9 C 68 18 84/52 L 97 05/23/25 23:00 36.6 C 75 18 86/55 L 97 O2 Del Method 05/24/25 07:34 Room Air 05/24/25 07:26 05/24/25 05:55 05/24/25 05:26 05/24/25 04:26 05/24/25 03:56 05/24/25 03:42 05/24/25 03:41 05/24/25 03:25 05/24/25 02:58 Room Air 05/24/25 02:57 05/24/25 01:53 05/24/25 00:53 05/24/25 00:23 05/24/25 00:08 05/23/25 23:53 05/23/25 23:00 Room Air Laboratory Results Abnormal lab results 05/23/25 05/23/25 05/23/25 Range/Units 15:53 16:00 17:24 RBC 2.58 L (4.20-5.40) M/uL Hgb 7.9 L 6.9 L* (12.0-16.0) g/dL Hct 23.4 L 20.4 L* (37.0-47.0) % Plt Count (130-400) K/uL MPV 12.8 H (9.4-12.4) fL Reticulocyte % (Auto) (0.50-2.00) % Neut # (Auto) 6.73 H (1.40-6.50) K/uL [place] # (Auto) (0.11-0.59) K/uL Potassium 3.1 L (3.5-5.1) mmol/L Chloride (98-107) mmol/L BUN 30 H (6-23) mg/dl Creatinine (0.6-1.2) mg/dl BUN/Creatinine Ratio 40.0 H (10-20) Glucose 162 H (70-99(Fasting)) mg/dl Calcium (8.6-10.3) mg/dl Magnesium 1.6 L (1.7-2.4) mg/dl AST (13-39) U/L ALT (7-52) U/L Alkaline Phosphatase (34-104) U/L Total Protein (6.0-8.3) gm/dl Albumin (3.4-5.0) gm/dl Globulin 2.4 L (2.5-4.0) gm/dl Cortisol AM Sample (6.2-22.6) mcg/dl Urine Protein Trace H (Negative) Urine Ketones Trace H (Negative) Ur Leukocyte Esterase 2+ H (Negative) Urine WBC (Auto) 6-10 H (0-5) /hpf U Hyaline Cast (Auto) 3-5 H (0-2) /lpf U Epithel Cells (Auto) 3-5 H (0-2) /hpf Crossmatch 05/23/25 05/24/25 05/24/25 Range/Units 17:38 05:20 06:53 RBC 2.54 L (4.20-5.40) M/uL Hgb 7.5 L 8.3 L (12.0-16.0) g/dL Hct 22.7 L 24.2 L (37.0-47.0) % Plt Count 127 L (130-400) K/uL MPV 12.5 H (9.4-12.4) fL Reticulocyte % (Auto) (0.50-2.00) % Neut # (Auto) (1.40-6.50) K/uL [place] # (Auto) 0.64 H (0.11-0.59) K/uL Potassium (3.5-5.1) mmol/L Chloride 114 H (98-107) mmol/L BUN (6-23) mg/dl Creatinine 0.47 L (0.6-1.2) mg/dl BUN/Creatinine Ratio 29.8 H (10-20) Glucose 105 H (70-99(Fasting)) mg/dl Calcium 7.3 L (8.6-10.3) mg/dl Magnesium (1.7-2.4) mg/dl AST 12 L (13-39) U/L ALT 6 L (7-52) U/L Alkaline Phosphatase 29 L (34-104) U/L Total Protein 4.4 L D (6.0-8.3) gm/dl Albumin 2.8 L (3.4-5.0) gm/dl Globulin 1.6 L (2.5-4.0) gm/dl Cortisol AM Sample 3.92 L (6.2-22.6) mcg/dl Urine Protein (Negative) Urine Ketones (Negative) Ur Leukocyte Esterase (Negative) Urine WBC (Auto) (0-5) /hpf U Hyaline Cast (Auto) (0-2) /lpf U Epithel Cells (Auto) (0-2) /hpf Crossmatch See Detail 05/24/25 05/24/25 Range/Units 08:18 11:50 RBC (4.20-5.40) M/uL Hgb 8.2 L (12.0-16.0) g/dL Hct 24.1 L (37.0-47.0) % Plt Count (130-400) K/uL MPV (9.4-12.4) fL Reticulocyte % (Auto) 3.31 H (0.50-2.00) % Neut # (Auto) (1.40-6.50) K/uL [place] # (Auto) (0.11-0.59) K/uL Potassium (3.5-5.1) mmol/L Chloride (98-107) mmol/L BUN (6-23) mg/dl Creatinine (0.6-1.2) mg/dl BUN/Creatinine Ratio (10-20) Glucose (70-99(Fasting)) mg/dl Calcium (8.6-10.3) mg/dl Magnesium (1.7-2.4) mg/dl AST (13-39) U/L ALT (7-52) U/L Alkaline Phosphatase (34-104) U/L Total Protein (6.0-8.3) gm/dl Albumin (3.4-5.0) gm/dl Globulin (2.5-4.0) gm/dl Cortisol AM Sample (6.2-22.6) mcg/dl Urine Protein (Negative) Urine Ketones (Negative) Ur Leukocyte Esterase (Negative) Urine WBC (Auto) (0-5) /hpf U Hyaline Cast (Auto) (0-2) /lpf U Epithel Cells (Auto) (0-2) /hpf Crossmatch (4) Urinary tract infection Hematuria presence: without hematuria Urinary tract infection type: site unspecified Qualified Code(s): N39.0 - Urinary tract infection, site not specified
[2025-05-24] MEDS: SODIUM CHLORIDE 0.9% 1,000 ML IV ONE (12:01)
[2025-05-24 12:13] LABS: Hematocrit (blood only) 24.1 % (37.0-47.0); Hemoglobin 8.2 g/dL (12.0-16.0)
--- NOTE | 2025-05-24 12:43 | Gastrointestinal Consultation ---
<Statement entered by Kenyon Thakkar MD - 05/24/25 17:27> ATTENDING ADDENDUM The patient was seen and evaluated in hospital at bedside. Labs, data, records and imaging reviewed at length case was discussed with the GI physician office administrative assistant and I agree with her assessment and plan as outlined above. 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 In light of anemia and possible GI bleeding it is reasonable to perform upper endoscopy to rule out anastomotic ulcer, peptic ulcer disease. The patient certainly prone to iron deficiency anemia in the setting of gastric bypass. Thank you for the courtesy of this consultation. Further recommendations to follow after upper endoscopy. Date of Consultation May 24, 2025 Assessment & Plan (1) Symptomatic anemia: (2) Nausea & vomiting: Plan -Treat constipation. Needs a daily bowel regimen with Miralax 1-2 times daily. -Continue to monitor H/H. -Discussed with patient that EGD may be low yield for n/v, but we can assess melena and anemia with an EGD tomorrow. -IV Protonix 40 mg BID. -She notes she is not supplementing with iron. History of Present Illness Reason for Consultation: "Acute anemia. N/V, PEG. H/o Maryuri en Y" Attending Physician: Mary Ann Odom MD History of Present Illness Patient is a 55 yo female with complicated history of CVA leading to PEG tube and history of Maryuri-en-y. She notes that while she initially had the PEG placed due to the stroke, she has not been able to get rid of it as she has many food aversions and depends on it for nutrition. She notes nausea with eating any food. An EGD was performed in 2023 by Brenda VAZQUEZ and was unremarkable for acute concerns. She recently had her tube changed. She has a low profile Giancarlo-lainez button feeding tube in place. This is managed by [facility]. She follows with palliative care for her nausea. She uses Zofran and Compazine suppositories. Her H/H is currently 8.2/24.1, but hgb did drop to 6.9 during this admission. Reportedly hgb was 14 in March. No significant GI blood loss noted. A dark stool is documented this admission. No anticoagulation. CT abdomen/pelvis as follows: IMPRESSION: 1. No CT evidence of an acute abdominal or pelvic abnormality. 2. Mild bilateral pelviectasis with no obstructing renal calculus or urinary bladder wall thickening. 3. Large amount of formed stool throughout the colon with no dilated loops of bowel. Postsurgical change of the sigmoid colon. Allergies Allergy/AdvReac Type Severity Reaction Status Date / Time No Known Allergies Allergy Verified 05/23/25 17:05 Home Medications Medication Instructions Recorded Confirmed Type sertraline 100 mg tablet 200 mg PO DAILY 05/01/24 05/23/25 History clonazepam 1 mg tablet 1 mg PO DAILY 06/27/24 05/23/25 History acetaminophen 325 mg tablet 650 mg PO DIRECTED PRN PAIN, 11/04/24 05/23/25 History (Tylenol) MILD-MODERATE cyanocobalamin (vitamin B-12) 1,000 mcg subcut .Q12WKS 11/04/24 05/23/25 History 1,000 mcg/mL injection solution epinephrine 0.3 mg/0.3 mL 0.3 mg IM DIRECTED PRN Allergic 11/04/24 05/23/25 History injection, auto-injector (EpiPen) Reaction lansoprazole 30 mg delayed 30 mg PO QAM 11/04/24 05/23/25 History release,disintegrating tablet (Prevacid SoluTab) qudbedch-imr-nzwb-FA-Ca carb-vit K 1 tab PO DAILY 11/04/24 05/23/25 History 18 mg iron-400 mcg-500 mg tablet (Women's One Daily) nutritional supplements 105 ea feeding tube DIRECTED 11/04/24 05/23/25 History prochlorperazine maleate 5 mg 5 mg PO Q6H PRN NAUSEA/VOMITING 11/04/24 05/23/25 History tablet (Compazine) scopolamine base 1 mg over 3 days 1 mg transdermal .Q72HRS 11/04/24 05/23/25 History transdermal patch trazodone 50 mg tablet 50 mg PO HS Sleep 11/04/24 05/23/25 History baclofen 10 mg tablet 10 mg PO Q12H PRN hiccups #60 tabs 11/09/24 05/23/25 Rx dicyclomine 10 mg capsule 10 mg PO QID PRN abdominal pain 11/09/24 05/23/25 Rx #60 caps ondansetron 4 mg disintegrating 4 mg PO Q8H PRN Nausea And 11/09/24 05/23/25 Rx tablet Vomiting #45 tabs prochlorperazine 25 mg rectal 25 mg MS Q12H PRN NAUSEA/VOMITING 11/09/24 05/23/25 Rx suppository (Compazine) 15 days #0 ea lidocaine 5 % topical patch 1 patch topical DAILY PRN Pain 05/23/25 05/23/25 History nitrofurantoin 100 mg PO BID 05/23/25 05/23/25 History monohydrate/macrocrystals 100 mg capsule Patient History Medical History Pulmonary embolism Endometriosis Hemorrhagic stroke Surgical History History of Maryuri-en-Y gastric bypass H/O wisdom tooth extraction History of partial colectomy History of hysterectomy Hx of cholecystectomy History of appendectomy H/O craniotomy Social History Smoking Status: Current every day smoker Tobacco Type: E-cigarettes / Vaping Second Hand Exposure: No; Do You Dip or Chew Tobacco: No; Hx Alcohol Use: No Hx Substance Use: No Preferred Language: Tajik 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 Ability: Effective Public Health Social Worker Required: No Beliefs That Will Affect Care: None Current Living Situation: Spouse and Family Other Information That Helps Us Care for You: No Feels Safe at Home: Yes Safety Concerns: Feels Safe At This Time Assistive Devices: Other Review of Systems Gastrointestinal: + nausea and + blood in stools (minimal BRBPR); no heartburn, no coffee ground emesis and no melena Physical Exam Constitutional: well developed Respiratory: normal respiratory effort Gastrointestinal (Abdomen): normal bowel sounds, soft, nontender, no hepatosplenomegaly Results & Data Vital Signs (Past 12 Hours) Vital Signs Temp Pulse Pulse Resp BP BP Pulse Ox 05/24/25 11:38 37.3 C 60 16 80/55 L 99 05/24/25 07:34 36.8 C 61 16 90/57 L 97 05/24/25 07:26 62 05/24/25 05:55 36.4 C L 66 16 88/58 L 98 05/24/25 05:26 36.9 C 62 16 85/55 L 05/24/25 04:26 36.8 C 73 18 82/51 L 97 05/24/25 03:56 36.4 C L 62 16 89/57 L 96 05/24/25 03:42 36.9 C 63 18 80/43 L 97 05/24/25 03:41 36.9 C 64 18 72/46 L 98 05/24/25 03:25 36.8 C 68 18 83/51 L 99 05/24/25 02:58 36.9 C 67 18 83/50 L 98 05/24/25 02:57 36.9 C 67 18 83/50 L 98 05/24/25 01:53 36.8 C 77 18 86/60 L 97 05/24/25 00:53 36.8 C 76 18 85/57 L 98 O2 Del Method 05/24/25 11:38 Room Air 05/24/25 07:34 Room Air 05/24/25 07:26 05/24/25 05:55 05/24/25 05:26 05/24/25 04:26 05/24/25 03:56 05/24/25 03:42 05/24/25 03:41 05/24/25 03:25 05/24/25 02:58 Room Air 05/24/25 02:57 05/24/25 01:53 05/24/25 00:53 PG Care Time/CCT Total # of Minutes Spent Total Time Spent with Patient: Total time spent is greater than 50% in coordination of care (as documented) at patient's floor/unit and/or counseling patient: Coding Level of Care Code 94423 IN/OBS CONSULT LVL 4,60M Diagnoses Symptomatic anemia D64.9 Nausea & vomiting R11.2
[2025-05-24] MEDS: DICYCLOMINE HCL 10 MG CAP PEG PRN (13:24)
[2025-05-24] MEDS: PROCHLORPERAZINE MALEATE 5 MG TAB PO PRN (14:10)
[2025-05-24] MEDS ORDERED: VANCOMYCIN HCL 1,000 MG in SODIUM CHLORIDE 0.9% 500 ML IV ONE (15:07)
[2025-05-24] MEDS ORDERED: VANCOMYCIN CONSULT ACTIVE PRN (15:07)
[2025-05-24] MEDS: VANCOMYCIN HCL / NSS 1,000 MG/270 ML BAG IV ONE (16:26)
--- NOTE | 2025-05-24 17:13 | Pharmacy Report ---
Pharmacy PK ABX Note - Date of Service May 24, 2025 - Assessment and Plan Assessment 55 year old F receiving vancomycin for treatment of cystitis/ r/o bacteremia. Antimicrobial coverage broadened from ceftriaxone. Patient with recent UTI treated with nitrofurantoin. * Pertinent microbiologic data includes: preliminary urine culture growing Staph aureus. Day #1 of vancomycin therapy. Plan Vancomycin * Loading dose: 1000 mg IV x 1 * Maintenance dose: 750 mg IV every 8 hours * Regimen is predicted to achieve target AUC/MANN of 400-600 mg/L.hr * Random level ordered for: 05/25 at 1200 Pharmacy will continue to follow and will adjust dose/frequency as necessary. Thank you. Pharmacy has transitioned to AUC monitoring for vancomycin. AUC/MANN is the preferred PK/PD target and is associated with decreased risk of nephrotoxicity compared to traditional trough targets.
[2025-05-24 17:59] LABS: Hematocrit (blood only) 24.2 % (37.0-47.0); Hemoglobin 8.4 g/dL (12.0-16.0)
--- NOTE | 2025-05-24 18:02 | Electrocardiogram Report ---
Test Reason : Blood Pressure : */* mmHG Vent. Rate : 54 BPM Atrial Rate : 54 BPM P-R Int : 170 ms QRS Dur : 80 ms QT Int : 444 ms P-R-T Axes : 44 81 59 degrees QTcB Int : 421 ms Sinus bradycardia Low voltage QRS Borderline ECG When compared with ECG of 23-May-2025 15:46, Vent. rate has decreased by 30 bpm QRS voltage has decreased Confirmed by Senthil Carmen ([id number]) on 05/24/2025 6:02:07 PM Referred By: REFERRED SELF Confirmed By: Senthil Carmen
[2025-05-24] MEDS ORDERED: Nursing to Pharmacy 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 SCH (18:30)
[2025-05-24] MEDS ORDERED: cefTRIAXone SODIUM 2,000 MG/50 ML BAG IV SCH (19:30)
[2025-05-24] MEDS: VANCOMYCIN 750 MG in SODIUM CHLORIDE 0.9% 250 ML IV SCH (22:59)
[2025-05-25 01:21] LABS: Hematocrit (blood only) 22.1 % (37.0-47.0); Hemoglobin 7.6 g/dL (12.0-16.0)
[2025-05-25] MEDS ORDERED: SODIUM CHLORIDE 0.9% 100 ML IV PRN (01:32)
[2025-05-25 05:59] LABS: Hematocrit (blood only) 28.4 % (37.0-47.0); Hemoglobin 9.8 g/dL (12.0-16.0); Mean Corpuscular Hemoglobin 30.2 pg (25.0-34.0); Mean Corpuscular Volume 87.4 fL (80.0-100.0); Platelet Count 133 K/uL (130-400); RDW Standard Deviation 44.4 fL (36.4-46.3); Red Blood Count 3.25 M/uL (4.20-5.40); White Blood Count 5.46 K/ul (4.8-10.8)
[2025-05-25 06:16] LABS: Anion Gap 3.0 (3-11); Blood Urea Nitrogen 6.0 mg/dl (6-23); Calcium 7.6 mg/dl (8.6-10.3); Carbon Dioxide 22.0 mmol/L (21-32); Chloride 118.0 mmol/L (98-107); Creatinine Clr Calc Pharmacy 107.0 ml/min; Glucose 111.0 mg/dl (70-99(Fasting)); Magnesium 1.8 mg/dl (1.7-2.4); Potassium 3.5 mmol/L (3.5-5.1); Sodium 143.0 mmol/L (136-145)
--- NOTE | 2025-05-25 08:46 | Hospitalist Progress Note ---
Date of Service May 25, 2025 Assessment & Plan (1) Symptomatic anemia: (2) Syncope and collapse: (3) Right sided abdominal pain: Plan: 55-year-old female with significant past medical history of prediabetes, history of sleep apnea, history of severe protein calorie malnutrition, history of persistent nausea and vomiting, past Maryuri-en-Y gastric surgery with postgastrectomy syndrome and status post peg tube feeding, GERD, depression and also history of pulmonary embolism in 2018 currently not on anticoagulation and also history of left basal ganglia hemorrhagic CVA requiring craniotomy in October 2022 with eventual cranioplasty in March 2023 has been complaining of right mid abdominal pain Symptomatic anemia Possible GI bleed Has not been eating or drinking for the last 3 days and not being fed through the PEG tube Reports dark stool RN reported dark stool this AM On presentation, hemoglobin of 7.9 dropped from [address] abd/P did not show any acute abnormality. Noted mild b/l pelviectasis with no obstructing renal calculus or urinary bladder wall thickening. Large amount of stool throughout colon S/p 3 PRBC this admission Hb is 9.8 this AM Monitor Hb Continue IV PPI Currently NPO for EGD today IV antiemetics prn Has chronic hypotension with SBP 90-100s. BP improving. (4) Urinary tract infection: Plan: Recent UTI on Macrobid UA is suggestive of infection Urine culture growing MRSA Follow up Blood cultures Antibiotics changed to vancomycin. (5) Hypomagnesemia: (6) Acute hypokalemia: Plan: On admission, K was 3.1 and Mag 1.6 Repleted and K is 3.5 and mag is 1.8 today (7) Moderate protein-calorie malnutrition: (8) Gastrostomy present: Plan: History of Maryuri-en-Y gastrectomy and subsequent PEG tube placement for feeding Currently NPO Plan to resume tubefeeding once able Nutrition on board (9) GERD (gastroesophageal reflux disease): Plan: On IV PPI (10) History of hemorrhagic cerebrovascular accident (CVA) with residual def icit: Plan: No acute issues (11) Anxiety: Plan DVT prophylaxis SCDs now CODE STATUS Full Called and updated him I spent a total of 50 minutes coordinating, documenting and providing care for this patient excluding time spent in performance of separately billed services Admission and Anticipated Discharge Date Admission Date: May 23, 2025 Subjective Patient seen and examined Reports intermittent nausea associated with abdominal pain. Under control at time of evaluation Got another PRBC overnight Physical Exam Constitutional: + well hydrated; no acute distress Eyes: PERRL, conjunctivae normal, anicteric sclerae ENMT: external ear and nose normal, oropharynx normal Respiratory: normal respiratory effort, lungs clear to auscultation Cardiovascular: Rate/Rhythm: regular rate and regular rhythm Gastrointestinal (Abdomen): normal bowel sounds, soft, nontender, no hepatosplenomegaly PEG in situ Musculoskeletal: No pedal edema Neurologic: PERRL, EOMI, accommodation nl, no face palsy, no dysarthria Psychiatric: A+Ox3, euthymic affect Results & Data Results & Data Vital Signs (Past 12 Hours) Vital Signs Temp Pulse Pulse Resp BP BP Pulse Ox 05/25/25 07:45 36.7 C 48 L 16 102/66 98 05/25/25 07:12 52 L 05/25/25 04:21 36.5 C 49 L 16 98/64 L 97 05/25/25 04:00 36.5 C 54 L 18 89/56 L 99 05/25/25 03:38 36.5 C 51 L 17 86/54 L 99 05/25/25 03:08 36.4 C L 49 L 16 96/69 L 99 05/25/25 02:53 36.3 C L 54 L 19 76/47 L 99 05/25/25 02:35 36.4 C L 65 18 82/48 L 97 05/25/25 00:25 05/24/25 23:04 89/54 L 05/24/25 23:00 36.5 C 60 18 84/53 L 96 O2 Del Method O2 Flow Rate 05/25/25 07:45 Room Air 05/25/25 07:12 05/25/25 04:21 05/25/25 04:00 Room Air 05/25/25 03:38 0 05/25/25 03:08 0 05/25/25 02:53 05/25/25 02:35 05/25/25 00:25 Room Air 05/24/25 23:04 05/24/25 23:00 Room Air Laboratory Results Abnormal lab results 05/23/25 05/24/25 05/25/25 Range/Units 17:38 17:34 01:00 RBC (4.20-5.40) M/uL Hgb 8.4 L 7.6 L (12.0-16.0) g/dL Hct 24.2 L 22.1 L (37.0-47.0) % Chloride (98-107) mmol/L Creatinine (0.6-1.2) mg/dl Glucose (70-99(Fasting)) mg/dl Calcium (8.6-10.3) mg/dl Crossmatch See Detail 05/25/25 05/25/25 Range/Units 05:21 11:52 RBC 3.25 L (4.20-5.40) M/uL Hgb 9.8 L (12.0-16.0) g/dL Hct 28.4 L 34.7 L (37.0-47.0) % Chloride 118 H (98-107) mmol/L Creatinine 0.48 L (0.6-1.2) mg/dl Glucose 111 H (70-99(Fasting)) mg/dl Calcium 7.6 L (8.6-10.3) mg/dl Crossmatch (4) Urinary tract infection Hematuria presence: without hematuria Urinary tract infection type: site unspecified Qualified Code(s): N39.0 - Urinary tract infection, site not specified
--- NOTE | 2025-05-25 09:13 | Gastroenterology Progress Note ---
Date of Service May 25, 2025 Assessment & Plan (1) Symptomatic anemia: Plan: 54 year old female with history of PE on 2018 not on AC, hemorrhagic CVA requiring craniectomy in October 2022 with eventual cranioplasty in March 2023, RYGB in 2020, moderate protein calorie malnutrition, unintentional weight loss, PTSD, depression, anxiety, s/p remnant PEG (11/06/23 by Surgery and IR in [place]) and others below admitted w/ abd pain, nausea/vomiting which has been intermittent and ongoing since her CVA and anemia - Maintain NPO for EGD evaluation - Continue IV PPI twice daily - Trend HGB - Monitor/document output - Transfuse PRN per primary team - Continue bowel regimen w/ Miralax 1 capful twice daily - Ultimately needs outpatient follow up with her GI team at [facility] including her nutrition team We appreciate assistance in the management of any serological abnormality and corrections to include: hemoglobin >7, INR <2, platelets >50,000, potassium levels >3.5 but <5.3, and sodium levels within 5 points of the reference range prior to endoscopic evaluation. Admission and Anticipated Discharge Date Admission Date: May 23, 2025 Subjective Remains NPO for EGD. Reports abd pain improved w/ BM. Stools did appear dark per patient. No nausea/vomiting. No fever, chills, CP, SOB. Review of Systems Review of Systems: All other findings negative except as noted in HPI. Physical Exam Constitutional: WD/WN, vitals as above Respiratory: normal respiratory effort, lungs clear to auscultation Cardiovascular: RRR, no murmur, no edema Gastrointestinal (Abdomen): normal bowel sounds, soft, nontender, no hepatosplenomegaly Skin: no rashes, warm and dry Results & Data Results & Data Vital Signs (Past 12 Hours) Vital Signs Temp Pulse Pulse Resp BP BP Pulse Ox 05/25/25 07:45 98.1 F 48 L 16 102/66 98 05/25/25 07:12 52 L 05/25/25 04:21 97.7 F 49 L 16 98/64 L 97 05/25/25 04:00 97.7 F 54 L 18 89/56 L 99 05/25/25 03:38 97.7 F 51 L 17 86/54 L 99 05/25/25 03:08 97.5 F L 49 L 16 96/69 L 99 05/25/25 02:53 97.3 F L 54 L 19 76/47 L 99 05/25/25 02:35 97.5 F L 65 18 82/48 L 97 05/25/25 00:25 05/24/25 23:04 89/54 L 05/24/25 23:00 97.7 F 60 18 84/53 L 96 O2 Del Method O2 Flow Rate 05/25/25 07:45 Room Air 05/25/25 07:12 05/25/25 04:21 05/25/25 04:00 Room Air 05/25/25 03:38 0 05/25/25 03:08 0 05/25/25 02:53 05/25/25 02:35 05/25/25 00:25 Room Air 05/24/25 23:04 05/24/25 23:00 Room Air Laboratory Results 05/25/25 05/25/25 05/24/25 Range/Units 05:21 01:00 17:34 WBC 5.46 (4.8-10.8) K/ul RBC 3.25 L (4.20-5.40) M/uL Hgb 9.8 L 7.6 L 8.4 L (12.0-16.0) g/dL Hct 28.4 L 22.1 L 24.2 L (37.0-47.0) % MCV 87.4 (80.0-100.0) fL MCH 30.2 (25.0-34.0) pg MCHC 34.5 (32.0-36.0) g/dL RDW Std Deviation 44.4 (36.4-46.3) fL RDW Coeff of Aysha 14.4 (11.5-14.5) % Plt Count 133 (130-400) K/uL MPV 12.3 (9.4-12.4) fL Sodium 143 (136-145) mmol/L Potassium 3.5 (3.5-5.1) mmol/L Chloride 118 H (98-107) mmol/L Carbon Dioxide 22 (21-32) mmol/L Anion Gap 3 (3-11) BUN 6 (6-23) mg/dl Creatinine 0.48 L (0.6-1.2) mg/dl Est Cr Clr Drug Dosing 107.0 ml/min eGFR 111.79 BUN/Creatinine Ratio 12.5 (10-20) Glucose 111 H (70-99(Fasting)) mg/dl Calcium 7.6 L (8.6-10.3) mg/dl Phosphorus 3.3 (2.5-4.9) mg/dl Magnesium 1.8 (1.7-2.4) mg/dl Unsaturated IBC (155-355) mcg/dl Ferritin (8-388) ng/ml Lactate Dehydrogenase (86-244) U/L Cortisol AM Sample (6.2-22.6) mcg/dl Blood Type Antibody Screen Crossmatch 05/24/25 05/24/25 05/24/25 Range/Units 11:50 08:18 05:20 WBC (4.8-10.8) K/ul RBC (4.20-5.40) M/uL Hgb 8.2 L (12.0-16.0) g/dL Hct 24.1 L (37.0-47.0) % MCV (80.0-100.0) fL MCH (25.0-34.0) pg MCHC (32.0-36.0) g/dL RDW Std Deviation (36.4-46.3) fL RDW Coeff of Aysha (11.5-14.5) % Plt Count (130-400) K/uL MPV (9.4-12.4) fL Sodium (136-145) mmol/L Potassium (3.5-5.1) mmol/L Chloride (98-107) mmol/L Carbon Dioxide (21-32) mmol/L Anion Gap (3-11) BUN (6-23) mg/dl Creatinine (0.6-1.2) mg/dl Est Cr Clr Drug Dosing ml/min eGFR BUN/Creatinine Ratio (10-20) Glucose (70-99(Fasting)) mg/dl Calcium (8.6-10.3) mg/dl Phosphorus (2.5-4.9) mg/dl Magnesium (1.7-2.4) mg/dl Unsaturated IBC 207 (155-355) mcg/dl Ferritin 12.7 (8-388) ng/ml Lactate Dehydrogenase 93 (86-244) U/L Cortisol AM Sample 3.92 L (6.2-22.6) mcg/dl Blood Type Antibody Screen Crossmatch 05/23/25 Range/Units 17:38 WBC (4.8-10.8) K/ul RBC (4.20-5.40) M/uL Hgb (12.0-16.0) g/dL Hct (37.0-47.0) % MCV (80.0-100.0) fL MCH (25.0-34.0) pg MCHC (32.0-36.0) g/dL RDW Std Deviation (36.4-46.3) fL RDW Coeff of Aysha (11.5-14.5) % Plt Count (130-400) K/uL MPV (9.4-12.4) fL Sodium (136-145) mmol/L Potassium (3.5-5.1) mmol/L Chloride (98-107) mmol/L Carbon Dioxide (21-32) mmol/L Anion Gap (3-11) BUN (6-23) mg/dl Creatinine (0.6-1.2) mg/dl Est Cr Clr Drug Dosing ml/min eGFR BUN/Creatinine Ratio (10-20) Glucose (70-99(Fasting)) mg/dl Calcium (8.6-10.3) mg/dl Phosphorus (2.5-4.9) mg/dl Magnesium (1.7-2.4) mg/dl Unsaturated IBC (155-355) mcg/dl Ferritin (8-388) ng/ml Lactate Dehydrogenase (86-244) U/L Cortisol AM Sample (6.2-22.6) mcg/dl Blood Type O Positive Antibody Screen NEGATIVE Crossmatch See Detail PG Care Time/CCT Total # of Minutes Spent Total Time Spent with Patient: Total time spent is greater than 50% in coordination of care (as documented) at patient's floor/unit and/or counseling patient: Coding Level of Care Code None Diagnoses Symptomatic anemia D64.9
[2025-05-25] MEDS: PROCHLORPERAZINE 25 MG SUPP PR PRN (09:53)
[2025-05-25] MEDS: POLYETHYLENE (MIRALAX) 17 GM PACK PO SCH (10:22)
[2025-05-25] MEDS: ONDANSETRON INJ 2 MG/ML 2 ML VIAL IV PRN (11:08)
--- NOTE | 2025-05-25 11:56 | Anesthesiology Consultation ---
Date of Service May 25, 2025 Assessment & Plan Chart Review Chart Review: Acceptable Risk for Surgery Consults Requested none ASA ASA3 Proposed Anesthesia Anesthesia Type: MAC Risk / Benefits Reviewed With: PT / POA / Parent / Guardian, Accepts Plan and Informed Consent Obtained History Surgery Operation Date: 05/25/25 17:25 Proposed Procedures p Esophagogastroduodenoscopy Dr. Thakkar - Kenyon Thakkar MD Height/Weight Height: 5 ft 3 in Weight: 51.2 kg Allergies Allergy/AdvReac Type Severity Reaction Status Date / Time No Known Allergies Allergy Verified 05/25/25 12:46 Medications Home Medications Medication Instructions Recorded Confirmed Last Taken sertraline 100 mg tablet 200 mg PO DAILY 05/01/24 05/23/25 11/04/24 clonazepam 1 mg tablet 1 mg PO DAILY 06/27/24 05/23/25 11/04/24 acetaminophen 325 mg tablet 650 mg PO DIRECTED PRN PAIN, 11/04/24 05/23/25 Unknown (Tylenol) MILD-MODERATE cyanocobalamin (vitamin B-12) 1,000 mcg subcut .Q12WKS 11/04/24 05/23/25 Unknown 1,000 mcg/mL injection solution epinephrine 0.3 mg/0.3 mL 0.3 mg IM DIRECTED PRN Allergic 11/04/24 05/23/25 Unknown injection, auto-injector (EpiPen) Reaction lansoprazole 30 mg delayed 30 mg PO QAM 11/04/24 05/23/25 11/04/24 release,disintegrating tablet (Prevacid SoluTab) wajoival-piq-xerf-FA-Ca carb-vit K 1 tab PO DAILY 11/04/24 05/23/25 11/04/24 18 mg iron-400 mcg-500 mg tablet (Women's One Daily) nutritional supplements 105 ea feeding tube DIRECTED 11/04/24 05/23/25 Unknown prochlorperazine maleate 5 mg 5 mg PO Q6H PRN NAUSEA/VOMITING 11/04/24 05/23/25 Unknown tablet (Compazine) scopolamine base 1 mg over 3 days 1 mg transdermal .Q72HRS 11/04/24 05/23/25 11/04/24 transdermal patch trazodone 50 mg tablet 50 mg PO HS Sleep 11/04/24 05/23/25 11/03/24 baclofen 10 mg tablet 10 mg PO Q12H PRN hiccups #60 tabs 11/09/24 05/23/25 Unknown dicyclomine 10 mg capsule 10 mg PO QID PRN abdominal pain 11/09/24 05/23/25 Unknown #60 caps ondansetron 4 mg disintegrating 4 mg PO Q8H PRN Nausea And 11/09/24 05/23/25 Unknown tablet Vomiting #45 tabs prochlorperazine 25 mg rectal 25 mg VA Q12H PRN NAUSEA/VOMITING 11/09/24 05/23/25 Unknown suppository (Compazine) 15 days #0 ea lidocaine 5 % topical patch 1 patch topical DAILY PRN Pain 05/23/25 05/23/25 Unknown nitrofurantoin 100 mg PO BID 05/23/25 05/23/25 Unknown monohydrate/macrocrystals 100 mg capsule Active Medications Generic Name Dose Route Start Last Admin Trade Name Freq PRN Reason Stop Dose Admin Clonazepam 1 mg 05/23/25 21:30 05/24/25 20:08 Clonazepam 1 Mg Tab PO 06/22/25 21:29 1 mg HS CASANDRA Administration Dicyclomine HCl 10 mg 05/23/25 21:03 05/24/25 19:34 Dicyclomine Hcl 10 Mg Cap PEG 06/22/25 21:02 10 mg QID PRN Administration abdominal pain Pantoprazole Sodium 40 mg in 10 mls @ 5 mls/min 05/23/25 21:00 05/25/25 07:55 Protonix IV 06/22/25 20:59 5 mls/min BID CASANDRA Administration Acetaminophen 1,000 mg in 100 mls @ 400 mls/hr 05/23/25 19:30 05/24/25 20:09 Ofirmev IV 05/26/25 19:29 Infused Q8H PRN Infusion Pain or Fever Vancomycin HCl 750 mg/ Sodium 265 mls @ 200 mls/hr 05/24/25 23:00 05/25/25 09:31 Chloride IV 05/29/25 22:59 Infused Q8H CASANDRA Infusion Lansoprazole 30 mg 05/23/25 21:03 05/24/25 08:55 Lansoprazole 30 Mg Soltab PEG 06/22/25 21:02 30 mg QAM CASANDRA Administration Miscellaneous 1 each 05/24/25 00:00 05/25/25 09:13 Lidocaine Patch Admin - Pending Order N/A 06/23/25 00:00 Not Given QS CASANDRA Ondansetron HCl 4 mg 05/25/25 10:59 05/25/25 11:08 Ondansetron Inj 2 Mg/Ml 2 Ml Vial IV 06/24/25 10:58 4 mg Q6H PRN Administration Nausea And Vomiting Polyethylene Glycol 17 gm 05/25/25 09:00 05/25/25 10:22 Polyethylene (Miralax) 17 Gm Pack PO 06/24/25 08:59 Not Given DAILY CASANDRA Prochlorperazine 5 mg 05/23/25 21:03 05/24/25 14:10 Prochlorperazine Maleate 5 Mg Tab PO 06/22/25 21:02 5 mg Q6H PRN Administration NAUSEA/VOMITING Sertraline HCl 200 mg 05/24/25 09:00 05/25/25 09:14 Sertraline Hcl 100 Mg Tablet PEG 06/23/25 08:59 200 mg DAILY CASANDRA Administration Trazodone HCl 50 mg 05/23/25 21:03 05/24/25 20:08 Trazodone Hcl 50 Mg Tab PEG 06/22/25 21:02 50 mg HS CASANDRA Administration NPO Date Last Intake of Fluids: 05/24/25 Time Last Intake of Fluids: 23:59 Date Last Intake of Solids: 05/24/25 Time Last Intake of Solids: 23:59 Past Medical History Medical History (Updated 05/25/25 @ 11:53 by Darleen Lua DO) Anxiety Depression GERD (gastroesophageal reflux disease) History of hemorrhagic cerebrovascular accident (CVA) with residual deficit occasional exp aphasia ESTEBAN (obstructive sleep apnea) Moderate protein-calorie malnutrition Unintentional weight loss Gastrostomy present Chronic nausea Pulmonary embolism Endometriosis Hemorrhagic stroke Exercise / Class Metabolic Activity II 4-5 Yardwork/Stairs/Walk up hill Past Surgical History Surgical History (Updated 05/25/25 @ 11:55 by Darleen Lua DO) Hx of esophagogastroduodenoscopy History of Maryuri-en-Y gastric bypass H/O wisdom tooth extraction History of partial colectomy History of hysterectomy Hx of cholecystectomy History of appendectomy H/O craniotomy Past Anesthesia History No Hx of Anesthesia Complications and No Family Hx of Anesthesia Complications History of PONV No Hx of PONV and No Hx of Motion Sickness Social History Smoking Status: Current every day smoker Do You Dip or Chew Tobacco: No Hx Alcohol Use: No Hx Substance Use: No substance use type: marijuana Substance Use Type Other:: medical marijuana Last Used Substance: Days (ago) Last Used Substance Other:: 2 months ago Physical Exam Vital Signs Last Vital Signs Temp 36.4 C L 05/25/25 11:38 Pulse 54 L 05/25/25 11:38 Resp 18 05/25/25 11:38 BP 146/79 H 05/25/25 11:38 Pulse Ox 100 05/25/25 11:38 O2 Del Method Room Air 05/25/25 11:38 O2 Flow Rate 0 05/25/25 03:38 ENMT Mouth: + small oral opening; no TMJ abnormality Thyromental Distance: > or= 3.5 Finger Breadths Mallampati Class: II Neck normal visual inspection and trachea midline; neck extension not limited Respiratory normal respiratory effort Auscultation: lungs clear to auscultation bilaterally Cardiovascular Rate/Rhythm: regular rate and regular rhythm Heart Sounds: no murmur Musculoskeletal Spine: normal cervical ROM Extremities: full ROM of extremities Neurologic moves all extremities Psychiatric Orientation: alert and oriented x 3 Testing Laboratory Results 05/25/25 11:52 05/25/25 05:21 PT 10.8 Seconds (9.0-12.0) 05/23/25 17:42 INR 1.0 (0.9-1.1) 05/23/25 17:42 Urine Color Yellow 05/23/25 15:53 Urine Appearance Clear (Clear) 05/23/25 15:53 Urine pH 5.0 (4.5-7.5) 05/23/25 15:53 Ur Specific [place] 1.027 (1.000-1.030) 05/23/25 15:53 Urine Protein Trace (Negative) H 05/23/25 15:53 Urine Glucose (UA) Negative (Negative) 05/23/25 15:53 Urine Ketones Trace (Negative) H 05/23/25 15:53 Urine Nitrite Negative (Negative) 05/23/25 15:53 Ur Leukocyte Esterase 2+ (Negative) H 05/23/25 15:53 Urine WBC (Auto) 6-10 /hpf (0-5) H 05/23/25 15:53 Urine RBC (Auto) 0-2 /hpf (0-2) 05/23/25 15:53 U Hyaline Cast (Auto) 3-5 /lpf (0-2) H 05/23/25 15:53 U Epithel Cells (Auto) 3-5 /hpf (0-2) H 05/23/25 15:53 Urine Bacteria (Auto) None Seen (None Seen) 05/23/25 15:53 Blood Type O Positive 05/23/25 17:38 Antibody Screen NEGATIVE 05/23/25 17:38 05/23/25 15:53 Urine Culture - Final Urine,Clean Catch Staphylococcus aureus Electrocardiogram Date: 05/24/25 Vent. Rate : 54 BPM Atrial Rate : 54 BPM P-R Int : 170 ms QRS Dur : 80 ms QT Int : 444 ms P-R-T Axes : 44 81 59 degrees QTcB Int : 421 ms Sinus bradycardia Low voltage QRS Borderline ECG When compared with ECG of 23-May-2025 15:46, Vent. rate has decreased by 30 bpm QRS voltage has decreased Chest X-Ray Date: 05/24/25 Findings: + NAD
[2025-05-25 12:14] LABS: Hematocrit (blood only) 34.7 % (37.0-47.0); Hemoglobin 12.3 g/dL (12.0-16.0)
--- NOTE | 2025-05-25 12:49 | Pharmacy Report ---
Pharmacy PK ABX Note - Date of Service May 25, 2025 - Assessment and Plan Assessment 05/25: Vancomycin level drawn today was 16.6mcg/mL which extrapolates to an AUC in the goal range. Maintenance dose of vancomycin will be continued without change. * Urine culture finalized growing rivers sensitive MSSA. * Blood cultures drawn today x 2, awaiting results to determine if antibiotics can be deescalated again. 05/24: 55 year old F receiving vancomycin for treatment of cystitis/ r/o bacteremia. Antimicrobial coverage broadened from ceftriaxone. Patient with recent UTI treated with nitrofurantoin. * Pertinent microbiologic data includes: preliminary urine culture growing Staph aureus. Day #1 of vancomycin therapy. Plan Vancomycin * Vancomycin level drawn this morning = 16.6mcg/mL which extrapolates to an AUC of 493mg/L.hr. * Continue maintenance dose: 750 mg IV every 8 hours * Regimen is predicted to achieve target AUC/MANN of 400-600 mg/L.hr * Another random level will be drawn in the next few days if the vancomycin is continued. Pharmacy will continue to follow and will adjust dose/frequency as necessary. Thank you. Pharmacy has transitioned to AUC monitoring for vancomycin. AUC/MANN is the preferred PK/PD target and is associated with decreased risk of nephrotoxicity compared to traditional trough targets.
[2025-05-25] MEDS: ONDANSETRON INJ 2 MG/ML 2 ML VIAL IV STA ×2 (12:56→16:03)
[2025-05-25] MEDS: SODIUM CHLORIDE 0.9% 500 ML IV SCH (12:56)
--- NOTE | 2025-05-25 13:59 | GI REPORT ---
[facility] Patient: ZEFERINO PICKARD : 1970 Sex at : Female Age: 55 Years Procedure: Upper GI endoscopy Date: 05/25/2025 Attending Physician: Kenyon Thakkar MD Referring MD: Referred Self; Joey Crockett; Mary Ann Odom MD Indications: - Anemia - Nausea with vomiting Medications: - See the Anesthesia note for documentation of the administered medications Complications: - No immediate complications. Estimated Blood Loss: - Estimated blood loss was minimal. Procedure: - Prior to the procedure, a History and Physical was performed, and patient medications and allergies were reviewed. The patient's tolerance of previous anesthesia was also reviewed. The risks and benefits of the procedure and the sedation options and risks were discussed with the patient. All questions were answered, and informed consent was obtained. Prior Anticoagulants: The patient has taken no anticoagulant or antiplatelet agents. ASA Grade Assessment: III - A patient with severe systemic disease. After reviewing the risks and benefits, the patient was deemed in satisfactory condition to undergo the procedure. - The egd scope was introduced through the mouth and advanced to the jejunum. - The upper GI endoscopy was accomplished without difficulty. - The patient tolerated the procedure well. Findings: - The examined jejunum was normal. Biopsies for histology were taken with a cold forceps for evaluation of celiac disease. - Evidence of a Maryuri-en-Y gastrojejunostomy was found. The gastrojejunal anastomosis was characterized by ulceration. This was traversed. The ezipg-so-jsphfms limb was characterized by ulceration. The zczbcgws-ll-czelvis limb was not examined as it could not be reached. The excluded stomach was not examined as it could not be reached. - Patchy mildly erythematous mucosa without bleeding was found in the entire examined stomach. This was biopsied with a cold forceps for histology. - The Z-line was irregular and was found 40 cm from the incisors. This was biopsied with a cold forceps for evaluation to rule out Arce's Esophagus. - The mid esophagus was normal. This was biopsied with a cold forceps for evaluation of eosinophilic esophagitis. Impression: - Normal examined jejunum. Biopsied. - Maryuri-en-Y gastrojejunostomy with gastrojejunal anastomosis characterized by ulceration. - Erythematous mucosa in the stomach. Biopsied. - Z-line irregular, 40 cm from the incisors. Biopsied. - Normal mid esophagus. Biopsied. Recommendation: - Await pathology results. - Advance diet as tolerated. - Continue twice daily proton pump inhibitor. Add Carafate 4 times daily in light of focal ulceration of the anastomosis. - Parenteral iron repletion recommended given gastric bypass status. - Strictly avoid NSAIDs. - Continue antiemetic therapy, rotating drugs. The patient has a history of hemorrhagic stroke near the area of the area postrema which could increase patient's propensity for nausea. Procedure Code(s): - 19779, Esophagogastroduodenoscopy, flexible, transoral; with biopsy, single or multiple Diagnosis Code(s): - D64.9, Anemia, unspecified - R11.2, Nausea with vomiting, unspecified - Z98.0, Intestinal bypass and anastomosis status - K31.89, Other diseases of stomach and duodenum - K22.89, Other specified disease of esophagus CPT(R) - 2023 copyright [employer]. All Rights Reserved. The CPT codes, CCI edits and ICD codes generated are intended as suggestions and were generated based on input data. These codes are preliminary and upon log haul operator review may be revised to meet current compliance and payer requirements. The provider is responsible for the final determination of appropriate codes, and modifiers. Kenyon Thakkar MD This document has been electronically signed. Note Initiated:05/25/2025 Note Completed:05/25/2025 1:58 PM \\[id number]
--- NOTE | 2025-05-25 14:10 | Anesthesiology Progress Note ---
Date of Service May 25, 2025 Anesthesia Post Procedure Vital Signs Vital Signs: Temp Pulse Pulse Resp BP BP BP 05/25/25 14:00 69 16 145/81 H 05/25/25 13:45 68 18 107/63 05/25/25 12:49 36.4 C L 58 L 16 147/84 H 05/25/25 11:38 36.4 C L 54 L 18 146/79 H 05/25/25 07:45 36.7 C 48 L 16 102/66 05/25/25 07:12 52 L 05/25/25 04:21 36.5 C 49 L 16 98/64 L 05/25/25 04:00 36.5 C 54 L 18 89/56 L 05/25/25 03:38 36.5 C 51 L 17 86/54 L 05/25/25 03:08 36.4 C L 49 L 16 96/69 L 05/25/25 02:53 36.3 C L 54 L 19 76/47 L 05/25/25 02:35 36.4 C L 65 18 82/48 L 05/25/25 00:25 05/24/25 23:04 89/54 L 05/24/25 23:00 36.5 C 60 18 84/53 L 05/24/25 19:45 37.0 C 60 18 98/63 L 05/24/25 15:45 90/61 L 05/24/25 15:25 36.8 C 60 16 84/58 L 05/24/25 14:48 67 Pulse Ox O2 Del Method O2 Flow Rate 05/25/25 14:00 98 Room Air 05/25/25 13:45 96 Room Air 05/25/25 12:49 100 Room Air 05/25/25 11:38 100 Room Air 05/25/25 07:45 98 Room Air 05/25/25 07:12 05/25/25 04:21 97 05/25/25 04:00 99 Room Air 05/25/25 03:38 99 0 05/25/25 03:08 99 0 05/25/25 02:53 99 05/25/25 02:35 97 05/25/25 00:25 Room Air 05/24/25 23:04 05/24/25 23:00 96 Room Air 05/24/25 19:45 96 Room Air 05/24/25 15:45 05/24/25 15:25 98 Room Air 05/24/25 14:48 Transfer of Care Handoff Completed per policy Notes Mental Status: alert / awake / arousable Patient Amnestic to Procedure: Yes Nausea / Vomiting: adequately controlled Pain: adequately controlled Airway Patency, RR, SpO2: stable & adequate BP & HR: stable & adequate Hydration State: stable & adequate Anesthetic Complications: no major complications apparent and Pt Satisfied with anesthetic care
[2025-05-25] MEDS: LIDOCAINE 2% 2 ML VIAL/AMP(20MG/ML) INFIL ONE (14:24)
[2025-05-25] MEDS: PROPOFOL IV EMULSION 10 MG/ML 20 ML VIAL IV ONE (14:24)
[2025-05-25] MEDS: PROCHLORPERAZINE 5 MG in SYRINGE 4 ML IV PRN (15:24)
[2025-05-25] MEDS: PROMETHAZINE 12.5 MG/50.5 ML BAG IV STA (16:45)
[2025-05-25] MEDS: SUCRALFATE 1 GM/10 ML UDC PO SCH (17:26)
[2025-05-25 17:56] LABS: Hematocrit (blood only) 36.5 % (37.0-47.0); Hemoglobin 13.4 g/dL (12.0-16.0)
[2025-05-25] MEDS: MoRPHine SULFATE 2 MG/ML CARP IV STA (20:15)
[2025-05-25] MEDS: OPTIRAY 320 100ml IV ONE (20:33)
--- NOTE | 2025-05-25 22:30 | 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 Note ---
Date of Service: May 25, 2025
--- NOTE | 2025-05-25 22:42 | CT Scan Report ---
Exam(s): CT ABDOMEN + PELVIS With Contrast IV Amt: 94ml EXAM: CT Abdomen and Pelvis With Intravenous Contrast CLINICAL HISTORY: Reason for exam: worsening abd pain, recent endoscopy. TECHNIQUE: Axial computed tomography images of the abdomen and pelvis with intravenous contrast. CTDI is 8.07 mGy and DLP is 393.71 mGy-cm. Automated exposure control was utilized for the study. A dose lowering technique was utilized adhering to the principles of ALARA. CONTRAST: Patient received 94ml of IV contrast COMPARISON: No relevant prior studies available. FINDINGS: Lung bases: Unremarkable. No mass. No consolidation. ABDOMEN: Liver: Unremarkable. No mass. Gallbladder and bile ducts: Postop changes prior cholecystectomy. No ductal dilation. Pancreas: Unremarkable. No mass. No ductal dilation. Spleen: Unremarkable. No splenomegaly. Adrenals: Unremarkable. No mass. Kidneys and ureters: Unremarkable. No solid mass. No hydronephrosis. Stomach and bowel: The stomach demonstrate wall thickening and subtle hyperemia. This inflammatory change extends from the stomach into the 1st and 2nd portions of the duodenum. Postop changes of the sigmoid colon. No obstruction. PELVIS: Appendix: No findings to suggest acute appendicitis. Bladder: Unremarkable. No mass. Reproductive: Unremarkable as visualized. ABDOMEN and PELVIS: Intraperitoneal space: Trace fluid within the dependent pelvis. No free air. Bones/joints: No acute fracture. No dislocation. Soft tissues: Unremarkable. Vasculature: Unremarkable. No abdominal aortic aneurysm. Lymph nodes: Unremarkable. No enlarged lymph nodes. Tubes, lines and devices: Postop changes of the stomach. Postoperative changes percutaneous gastrostomy tube entering the gastric fundus. IMPRESSION: Wall thickening and inflammatory changes about the stomach suggesting gastritis within same likely of infectious etiology. This inflammatory change extends from the stomach into the 1st and 2nd portions of the duodenum. Electronically signed by: Guanaco Parker MD 05/25/25 22:40 PM
[2025-05-26 07:06] VITALS: RESP 18
[2025-05-26 07:12] LABS: Hematocrit (blood only) 37.1 % (37.0-47.0); Hemoglobin 13.7 g/dL (12.0-16.0); Mean Corpuscular Hemoglobin 30.6 pg (25.0-34.0); Mean Corpuscular Volume 83.0 fL (80.0-100.0); Platelet Count 201 K/uL (130-400); RDW Standard Deviation 40.8 fL (36.4-46.3); Red Blood Count 4.47 M/uL (4.20-5.40); White Blood Count 12.64 K/ul (4.8-10.8)
[2025-05-26 07:28] LABS: Anion Gap 8.0 (3-11); Blood Urea Nitrogen 5.0 mg/dl (6-23); Calcium 8.8 mg/dl (8.6-10.3); Carbon Dioxide 27.0 mmol/L (21-32); Chloride 101.0 mmol/L (98-107); Creatinine Clr Calc Pharmacy 88.9 ml/min; Glucose 105.0 mg/dl (70-99(Fasting)); Magnesium 1.5 mg/dl (1.7-2.4); Potassium 2.9 mmol/L (3.5-5.1); Sodium 136.0 mmol/L (136-145)
[2025-05-26] MEDS: MAGNESIUM SULFATE / D5W 1 GM/100 ML BAG IV SCH (08:19)
[2025-05-26] MEDS: POTASSIUM CHLORIDE 20 MEQ/15 ML UDC PO STA ×2 (08:34→12:03)
--- NOTE | 2025-05-26 09:18 | Gastroenterology Progress Note ---
Date of Service May 26, 2025 Assessment & Plan (1) Symptomatic anemia: Plan: 54 year old female with history of PE on 2018 not on AC, hemorrhagic CVA requiring craniectomy in October 2022 with eventual cranioplasty in March 2023, RYGB in 2020, moderate protein calorie malnutrition, unintentional weight loss, PTSD, depression, anxiety, s/p remnant PEG (11/06/23 by Surgery and IR in [place]) and others below admitted w/ abd pain, nausea/vomiting which has been intermittent and ongoing since her CVA and anemia - Liquid Carafate four times daily - Continue twice daily PPI - Iron replacement - Trend HGB - Monitor/document output - Transfuse PRN per primary team - Continue bowel regimen w/ Miralax 1 capful twice daily - Ultimately needs outpatient follow up with her GI team at [facility] including her nutrition team - Her nausea is likely multifactorial given onset since hemorrhagic stroke near the area of the area postrema which could increase patient's propensity for nausea. Recall GI as needed. I spent a total of 40 minutes on the date of service in review of patient's record, and previously obtained information in person and appropriate medical visit, discussion and education of plan, with patient and/or caregiver, placing orders for tests/referral/procedures as medically necessary and documentation of pertinent clinical information in patient's medical records for their visit today. Admission and Anticipated Discharge Date Admission Date: May 23, 2025 Subjective S/P EGD w/ erythema in stomach, anastomotic ulceration. Started on Carafate. Ongoing nausea. Limited oral intake. EGD 2024: Normal examined jejunum. Biopsied. - Maryuri-en-Y gastrojejunostomy with gastrojejunal anastomosis characterized by ulceration. - Erythematous mucosa in the stomach. Biopsied. - Z-line irregular, 40 cm from the incisors. Biopsied. - Normal mid esophagus. Biopsied. Review of Systems Review of Systems: All other findings negative except as noted in HPI. Physical Exam Constitutional: WD/WN, vitals as above Respiratory: normal respiratory effort, lungs clear to auscultation Cardiovascular: Rate/Rhythm: regular rate Gastrointestinal (Abdomen): normal bowel sounds, soft, nontender, no hepatosplenomegaly Skin: no rashes, warm and dry Results & Data Results & Data Vital Signs (Past 12 Hours) Vital Signs Temp Pulse Pulse Resp BP BP Pulse Ox 05/26/25 07:05 98.8 F 70 18 86/56 L 95 05/26/25 05:34 92 H 05/26/25 04:10 99.7 F H 81 20 123/78 94 05/26/25 02:01 72 05/25/25 23:25 98.1 F 58 L 18 100/72 94 O2 Del Method 05/26/25 07:05 Room Air 05/26/25 05:34 05/26/25 04:10 Room Air 05/26/25 02:01 05/25/25 23:25 Room Air Laboratory Results 05/26/25 05/25/25 05/25/25 Range/Units 06:56 17:37 11:52 WBC 12.64 H (4.8-10.8) K/ul RBC 4.47 (4.20-5.40) M/uL Hgb 13.7 13.4 12.3 (12.0-16.0) g/dL Hct 37.1 36.5 L 34.7 L (37.0-47.0) % MCV 83.0 D (80.0-100.0) fL MCH 30.6 (25.0-34.0) pg MCHC 36.9 H (32.0-36.0) g/dL RDW Std Deviation 40.8 (36.4-46.3) fL RDW Coeff of Aysha 14.5 (11.5-14.5) % Plt Count 201 D (130-400) K/uL MPV 11.6 (9.4-12.4) fL Haptoglobin (43-212) mg/dL Sodium 136 (136-145) mmol/L Potassium 2.9 L (3.5-5.1) mmol/L Chloride 101 (98-107) mmol/L Carbon Dioxide 27 (21-32) mmol/L Anion Gap 8 (3-11) BUN 5 L (6-23) mg/dl Creatinine 0.58 L (0.6-1.2) mg/dl Est Cr Clr Drug Dosing 88.9 ml/min eGFR 106.81 BUN/Creatinine Ratio 8.6 L (10-20) Glucose 105 H (70-99(Fasting)) mg/dl Calcium 8.8 (8.6-10.3) mg/dl Phosphorus 4.1 (2.5-4.9) mg/dl Magnesium 1.5 L (1.7-2.4) mg/dl Random Vancomycin 16.6 (10-20) mcg/ml 05/24/25 Range/Units 08:18 WBC (4.8-10.8) K/ul RBC (4.20-5.40) M/uL Hgb (12.0-16.0) g/dL Hct (37.0-47.0) % MCV (80.0-100.0) fL MCH (25.0-34.0) pg MCHC (32.0-36.0) g/dL RDW Std Deviation (36.4-46.3) fL RDW Coeff of Aysha (11.5-14.5) % Plt Count (130-400) K/uL MPV (9.4-12.4) fL Haptoglobin 68 (43-212) mg/dL Sodium (136-145) mmol/L Potassium (3.5-5.1) mmol/L Chloride (98-107) mmol/L Carbon Dioxide (21-32) mmol/L Anion Gap (3-11) BUN (6-23) mg/dl Creatinine (0.6-1.2) mg/dl Est Cr Clr Drug Dosing ml/min eGFR BUN/Creatinine Ratio (10-20) Glucose (70-99(Fasting)) mg/dl Calcium (8.6-10.3) mg/dl Phosphorus (2.5-4.9) mg/dl Magnesium (1.7-2.4) mg/dl Random Vancomycin (10-20) mcg/ml PG Care Time/CCT Total # of Minutes Spent Total Time Spent with Patient: Total time spent is greater than 50% in coordination of care (as documented) at patient's floor/unit and/or counseling patient: Coding Level of Care Code 63623 SUB INP/OBS CARE 2/35MIN Diagnoses Symptomatic anemia D64.9
[2025-05-26 11:07] VITALS: PULSE 87; TEMP 98.1; O2SAT 96
--- NOTE | 2025-05-26 11:18 | Discharge Summary ---
Discharge Summary Date of Service May 26, 2025 Principal Dx & Hospital Course #1 = Principal Diagnosis (1) Symptomatic anemia: (2) Syncope and collapse: (3) Right sided abdominal pain: 55-year-old female with significant past medical history of prediabetes, history of sleep apnea, history of severe protein calorie malnutrition, history of persistent nausea and vomiting, past Maryuri-en-Y gastric surgery with postgastrectomy syndrome and status post peg tube feeding, GERD, depression and also history of pulmonary embolism in 2018 currently not on anticoagulation and also history of left basal ganglia hemorrhagic CVA requiring craniotomy in October 30 with eventual cranioplasty in March 2023 has been complaining of right mid abdominal pain. Hgb 6.9 on admission. S/p 3 PRBCs. Acute blood loss anemia secondary to Upper GI bleed. GI was consulted. EGD on 05/25 showed gastritis and non bleeding ulceration at gastrojejunal anastamosis. Hgb continues to improve without PRBC, up to 13.7 today. GI recommending protonix BID + carafate QID. She was also diagnosed with a UTI. Urine cx grew MSSA, not MRSA as was previously documented. She was on IV vanc but this was changed to keflex on day of discharge. she will complete another 4 days of therapy. She also had hypokalemia and hypomagnesemia which was replaced today. She was advised to f/u with her PCP for repeat BMP in one week. Mild leukocytosis but afebrile and no urinary symptoms currently. no other s/s infection. Labs otherwise stable today. She has chronic hypotension, which she states started two years ago. She denies lightheadedness, dizziness, SOB today. She feels very well and wishes to go home today. She will continue her current PEG tube feedings as she was doing prior to discharge. (4) Urinary tract infection: (5) Hypomagnesemia: (6) Acute hypokalemia: (7) Moderate protein-calorie malnutrition: (8) Gastrostomy present: (9) GERD (gastroesophageal reflux disease): (10) History of hemorrhagic cerebrovascular accident (CVA) with residual defic it: (11) Anxiety: Notes For Next Care Provider Medication Changes From Visit Protonix BID. prevacid DC Carafate added Keflex x 4 days for MSSA UTI She is on numerous anti nausea medications, recommended her zofran be held unless directed by her providers as OP Admission HPI Per Admitting Provider She is a 55-year-old female with significant past medical history of prediabetes, history of sleep apnea, history of severe protein calorie malnutrition, history of persistent nausea and vomiting, past Maryuri-en-Y gastric surgery with postgastrectomy syndrome and status post peg tube feeding, GERD, depression and also history of pulmonary embolism in 2018 currently not on anticoagulation and also history of left basal ganglia hemorrhagic CVA requiring craniotomy in October 2022 with eventual cranioplasty in March 2023 has been complaining of right mid abdominal pain for the last 3 days. Pain is constant with occasional exacerbation and complains of pain in the right renal angle as well. No abdominal distention and has persistent nausea but no vomiting. No fever and no chills and she has been taking Macrobid for recent UTI and is still has some burning sensation during micturition. Apparently she has not been eating or drinking and not having any PEG tube feeding for the last 3 days While outside today she felt weak and lethargic and almost fainted and after that point she was brought into the emergency room. Denies any hematemesis and/or melena. In the ER she was noted to have significant electrolyte imbalance and also hemoglobin was very low at 7.9 from 14 in March. He was admitted to medical telemetry unit for continuation of care Discharge Exam Vitals and labs reviewed General: Well appearing, NAD HEENT: EOMI, PERRLA Neck: Supple Cardiac: RRR no rubs gallops or murmurs Lungs: CTA no rhonchi wheezing or rales Abd: S NT ND BS positive : Deffered MSK: Full ROM. No obvious deformities Ext: No Edema cyanosis Skin: Warm, Dry Neuro: AOx3 No focal deficits. Psych: Normal Mood Updated Medication List Medication Instructions Recorded Confirmed Type sertraline 100 mg tablet 200 mg PO DAILY 05/01/24 05/23/25 History clonazepam 1 mg tablet 1 mg PO DAILY 06/27/24 05/23/25 History acetaminophen 325 mg tablet 650 mg PO DIRECTED PRN PAIN, 11/04/24 05/23/25 History (Tylenol) MILD-MODERATE cyanocobalamin (vitamin B-12) 1,000 mcg subcut .Q12WKS 11/04/24 05/23/25 History 1,000 mcg/mL injection solution epinephrine 0.3 mg/0.3 mL 0.3 mg IM DIRECTED PRN Allergic 11/04/24 05/23/25 History injection, auto-injector (EpiPen) Reaction lansoprazole 30 mg delayed 30 mg PO QAM 11/04/24 05/23/25 History release,disintegrating tablet (Prevacid SoluTab) [id number] carb-vit K 1 tab PO DAILY 11/04/24 05/23/25 History 18 mg iron-400 mcg-500 mg tablet (Women's One Daily) nutritional supplements 105 ea feeding tube DIRECTED 11/04/24 05/23/25 History prochlorperazine maleate 5 mg 5 mg PO Q6H PRN NAUSEA/VOMITING 11/04/24 05/23/25 History tablet (Compazine) scopolamine base 1 mg over 3 days 1 mg transdermal .Q72HRS 11/04/24 05/23/25 History transdermal patch trazodone 50 mg tablet 50 mg PO HS Sleep 11/04/24 05/23/25 History baclofen 10 mg tablet 10 mg PO Q12H PRN hiccups #60 tabs 11/09/24 05/23/25 Rx dicyclomine 10 mg capsule 10 mg PO QID PRN abdominal pain 11/09/24 05/23/25 Rx #60 caps ondansetron 4 mg disintegrating 4 mg PO Q8H PRN Nausea And 11/09/24 05/23/25 Rx tablet Vomiting #45 tabs prochlorperazine 25 mg rectal 25 mg OH Q12H PRN NAUSEA/VOMITING 11/09/24 05/23/25 Rx suppository (Compazine) 15 days #0 ea lidocaine 5 % topical patch 1 patch topical DAILY PRN Pain 05/23/25 05/23/25 History nitrofurantoin 100 mg PO BID 05/23/25 05/23/25 History monohydrate/macrocrystals 100 mg capsule cephalexin 500 mg capsule 500 mg PO BID 4 days #8 caps 05/26/25 Rx pantoprazole 40 mg tablet,delayed 40 mg PO BID 30 days #60 tabs 05/26/25 Rx release (Protonix) sucralfate 100 mg/mL oral 1 g (10 mL) PO QID 30 days #1,200 05/26/25 Rx suspension mL Hospital Stay Data Consultations 05/23/25 17:59 ED Decision to Admit Stat 05/24/25 08:09 Consult Gastroenterology Routine Procedures Performed Operation Date: 05/25/25 17:25 Actual Procedures p EGD Biopsy Cytology - Kenyon Thakkar MD Diagnostic Imagining Performed 05/23/25 17:59 CT Abd and Pelvis [CT abd pelvis IV con only] Stat 05/25/25 20:07 CT Abd and Pelvis [CT abd pelvis IV con only] Stat Pending Results Patient Have Any Pending Studies at Discharge: Yes Discharge Instructions Given to Patient (Per Discharging Provider) Please continue taking the antibiotic as prescribed. Continue taking carafate four times daily and please follow up with your [facility] GI team. Please ask your PCP for repeat kidney function test (BMP) next week to ensure your electrolytes remain normal. Continue over the counter miralax once daily. Total Time Total Time Spent Total Time Spent (In Minutes): 50
[2025-05-26 11:53] VITALS: BP 123/78
== END 2025-05-26 15:26 | disposition home or self-care (01) | DRG 812 ==
LOC: ED 15:28 → SUATTDRO 18:20 → 2N 18:20

== ENCOUNTER 2025-06-20 20:03 | Observation (INO) ==
[2025-06-20] MEDS: SODIUM CHLORIDE 0.9% 1,000 ML IV SCH (20:24)
--- NOTE | 2025-06-20 20:24 | Emergency Department Note ---
History of Present Illness General Chief complaint: Syncope Stated complaint: SYNCOPE, HYPOTENSION Time Seen by Provider: 06/20/25 20:08 History of Present Illness Provider complaint: Syncope choking Onset (ago): hour(s) 1 55-year-old female presents emergency department for syncope and choking. Reportedly the patient was trying to eat a steak in the last hour and started having choking. Patient's son did the Heimlich on the patient and then the patient had a syncopal episode. Patient did strike her head. Patient states she does not remember what happened. She reports no current headache chest pain abdominal pain or difficulty breathing. Patient was recently on antibiotics for UTI. No fevers. Home Medications Medication Instructions Recorded Confirmed Type sertraline 100 mg tablet 200 mg PO DAILY 05/01/24 06/20/25 History clonazepam 1 mg tablet 1 mg PO DAILY 06/27/24 06/20/25 History acetaminophen 325 mg tablet 650 mg PO DIRECTED PRN PAIN, 11/04/24 06/20/25 History (Tylenol) MILD-MODERATE cyanocobalamin (vitamin B-12) 1,000 mcg subcut .Q12WKS 11/04/24 06/20/25 History 1,000 mcg/mL injection solution epinephrine 0.3 mg/0.3 mL 0.3 mg IM DIRECTED PRN Allergic 11/04/24 06/20/25 History injection, auto-injector (EpiPen) Reaction [id number] carb-vit K 1 tab PO DAILY 11/04/24 06/20/25 History 18 mg iron-400 mcg-500 mg tablet (Women's One Daily) nutritional supplements 105 ea feeding tube DIRECTED 11/04/24 06/20/25 History prochlorperazine maleate 5 mg 5 mg PO Q6H PRN NAUSEA/VOMITING 11/04/24 06/20/25 History tablet (Compazine) scopolamine base 1 mg over 3 days 1 mg transdermal .Q72HRS 11/04/24 06/20/25 History transdermal patch trazodone 50 mg tablet 50 mg PO HS Sleep 11/04/24 06/20/25 History baclofen 10 mg tablet 10 mg PO Q12H PRN hiccups #60 tabs 11/09/24 06/20/25 Rx dicyclomine 10 mg capsule 10 mg PO QID PRN abdominal pain 11/09/24 06/20/25 Rx #60 caps prochlorperazine 25 mg rectal 25 mg VA Q12H PRN NAUSEA/VOMITING 11/09/24 06/20/25 Rx suppository (Compazine) 15 days #0 ea lidocaine 5 % topical patch 1 patch topical DAILY PRN Pain 05/23/25 06/20/25 History pantoprazole 40 mg tablet,delayed 40 mg PO BID 30 days #60 tabs 05/26/25 06/20/25 Rx release (Protonix) polyethylene glycol 3350 17 gram 17 g PO DAILY 30 days #30 ea 05/26/25 06/20/25 Rx oral powder packet (Miralax) sucralfate 100 mg/mL oral 1 g (10 mL) PO QID 30 days #1,200 05/26/25 06/20/25 Rx suspension mL Allergies Allergy/AdvReac Type Severity Reaction Status Date / Time No Known Allergies Allergy Verified 05/25/25 12:46 Past Med/Surg History Problem List (Updated 06/20/25 @ 23:28 by Nato Light MD) Choking (Acute) Right sided abdominal pain Symptomatic anemia (Acute) Syncope and collapse (Acute) Hypomagnesemia (Acute) Acute hypokalemia (Acute) Nausea & vomiting (Acute) Palliative care by specialist Left sided abdominal pain (Acute) Left lower quadrant abdominal pain (Acute) Taste perversion Leukocytosis (Acute) Intractable nausea and vomiting (Acute) Medical History Anxiety Depression GERD (gastroesophageal reflux disease) History of hemorrhagic cerebrovascular accident (CVA) with residual deficit occasional exp aphasia ESTEBAN (obstructive sleep apnea) Moderate protein-calorie malnutrition Unintentional weight loss Gastrostomy present Chronic nausea Pulmonary embolism Endometriosis Hemorrhagic stroke Surgical History Hx of esophagogastroduodenoscopy History of Maryuri-en-Y gastric bypass H/O wisdom tooth extraction History of partial colectomy History of hysterectomy Hx of cholecystectomy History of appendectomy H/O craniotomy Social History Smoking Status: Current every day smoker Tobacco Type: E-cigarettes / Vaping Second Hand Exposure: No; Do You Dip or Chew Tobacco: No; Hx Alcohol Use: No Hx Substance Use: No Preferred Language: Kyrgyz 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 Ability: Effective Upholsterer Inside Required: No Beliefs That Will Affect Care: None Current Living Situation: Spouse and Family Feels Safe at Home: Yes Assistive Devices: Other Physical Exam Vital Signs Vital Signs - 24 hr 06/20/25 20:07 06/20/25 20:09 06/20/25 20:15 Pulse Rate 54 L 48 L 46 L Respiratory Rate 14 14 Respiratory Effort / Characteristics Non-Labored Spontaneous Respiratory Depth Normal Respiratory Pattern Regular Blood Pressure 93/55 L 105/64 Blood Pressure Mean 67 77 Pulse Oximetry 99 97 Oxygen Delivery Method Room Air Sepsis Recent Fever Within 48 Hours No Sepsis New/Unexplained Change in Mental Status N/A Sepsis Action Taken by Nursing No Action Required 06/20/25 20:45 06/20/25 21:00 06/20/25 21:15 Pulse Rate 46 L 46 L 50 L Respiratory Rate 16 14 16 Respiratory Effort / Characteristics Respiratory Depth Respiratory Pattern Blood Pressure 102/67 107/67 102/87 Blood Pressure Mean 78 80 92 Pulse Oximetry 98 99 98 Oxygen Delivery Method Sepsis Recent Fever Within 48 Hours Sepsis New/Unexplained Change in Mental Status Sepsis Action Taken by Nursing 06/20/25 21:30 Pulse Rate 48 L Respiratory Rate 16 Respiratory Effort / Characteristics Respiratory Depth Respiratory Pattern Blood Pressure 110/60 Blood Pressure Mean 76 Pulse Oximetry 99 Oxygen Delivery Method Sepsis Recent Fever Within 48 Hours Sepsis New/Unexplained Change in Mental Status Sepsis Action Taken by Nursing Physical Exam HENT: Exam performed. -Head: Normocephalic and atraumatic. EYES: Conjunctivae and EOM are normal. Pupils are equal, round, and reactive to light. Right eye exhibits no discharge. Left eye exhibits no discharge. No scleral icterus. NECK: Normal range of motion. Neck supple. No JVD present. No spinous process tenderness present. No rigidity. No tracheal deviation and normal range of motion present. CV: Bradycardic rate, regular rhythm, normal heart sounds and intact distal pulses. There is no peripheral edema. Palpable radial pulses bue. PULM/CHEST: Effort normal and breath sounds normal. No respiratory distress. No stridor. She has no wheezes. She has no rales. ABD: The abdomen is soft. Husam PEG tube in place with mild oozing from it after the patient had the Heimlich maneuver performed on her. She has no distension. No mass is present. There is no tenderness. There is no rebound, no guarding. NEURO: She is alert and oriented to person, place, and time. She has normal strength. No cranial nerve deficit or sensory deficit. Coordination and gait normal. GCS eye subscore is 4. GCS verbal subscore is 5. GCS motor subscore is 6. Cerebellar tests wnl. Procedures FAST Exam FAST Exam 1: Fluid in Morison's pouch: No Fluid in Splenorenal Junction: No Fluid around bladder, Transverse view: No Fluid around bladder, Sagittal view: No Fluid in Pericardial Sac: No Gross Wall Motion Abnormality: No Study normal for this patient: Yes Additional Comments: [facility] [place] protocol. No AAA. IVC is flat. Course Course 2007: The patient was evaluated in room B1. A complete history and physical exam was performed Cardiac monitoring: An order was placed for continuous cardiac monitoring. The monitor shows a rate of 40 with sinus rhythm interpreted by me At bedside [facility] [place] [facility] protocol shows a flat IVC. Per patient she was diagnosed with UTI sepsis protocols been initiated patient treated with IV fluid bolus. 2300: Vital signs stable. Labs and imaging unremarkable. Patient's blood pressure improved with IV fluids. Patient will be admitted to [facility] hospitalist team for syncope workup. Administered Medications Discontinued Medications Diphenhydramine HCl (Diphenhydramine 50 Mg/Ml Vial) 25 mg IV NOW STA Stop: 06/20/25 21:51 Last Admin: 06/20/25 22:00 Dose: 25 mg Documented By: herve Sodium Chloride (Nss) 1,000 mls @ 999 mls/hr IV .Q1H1M CASANDRA Stop: 06/20/25 21:15 Last Infusion: 06/20/25 21:43 Dose: Infused Documented By: Admin: 06/20/25 20:24 Dose: 999 mls/hr Documented By: JESSICA Ioversol (Optiray 320 100ml) 90 ml IV ONCE ONE Stop: 06/20/25 20:34 Last Admin: 06/20/25 20:34 Dose: 90 ml Documented By: MARIAELENA Metoclopramide HCl (Metoclopramide Hcl Inj 5 Mg/Ml 2 Ml Vial) 5 mg IV ONE ONE Stop: 06/20/25 21:51 Last Admin: 06/20/25 22:00 Dose: 5 mg Documented By: [facility] [place] Decision Making Medical Records Attestation: I reviewed the patient's medical records. Medical records reviewed. Patient was admitted from May 23 to May 26, 2025. Patient was admitted for anemia, syncope and collapse, abdominal pain UTI hypomagnesemia and hypokalemia. On admission patient's hemoglobin 7.9 potassium 3.1 magnesium 1.6. Echo performed in August 2023 showed an ejection fraction of 55 to 60%. Laboratory Data Attestation: I reviewed the patient's lab results. 06/20/25 20:20 06/20/25 20:20 Lab Results 06/20/25 06/20/25 Range/Units 20:20 21:40 WBC 5.45 (4.8-10.8) K/ul RBC 3.95 L (4.20-5.40) M/uL Hgb 12.2 (12.0-16.0) g/dL Hct 35.9 L (37.0-47.0) % MCV 90.9 (80.0-100.0) fL MCH 30.9 (25.0-34.0) pg MCHC 34.0 (32.0-36.0) g/dL RDW Std Deviation 41.8 (36.4-46.3) fL RDW Coeff of Aysha 12.7 (11.5-14.5) % Plt Count 193 (130-400) K/uL MPV 12.2 (9.4-12.4) fL Immature Gran % (Auto) 0.2 % Neut % (Auto) 57.7 % Lymph % (Auto) 35.0 % [place] % (Auto) 5.7 % Eos % (Auto) 0.7 % Baso % (Auto) 0.7 % Neut # (Auto) 3.14 (1.40-6.50) K/uL Lymph # (Auto) 1.91 (1.20-3.40) K/uL [place] # (Auto) 0.31 (0.11-0.59) K/uL Eos # (Auto) 0.04 (0.00-0.50) K/uL Baso # (Auto) 0.04 (0.00-0.20) K/uL Immature Gran # (Auto) 0.01 (0.01-0.20) K/uL PT 11.4 (9.0-12.0) Seconds INR 1.1 (0.9-1.1) APTT 24 (21-31) Seconds PTT Ratio 0.9 Sodium 138 (136-145) mmol/L Potassium 4.1 (3.5-5.1) mmol/L Chloride 106 (98-107) mmol/L Carbon Dioxide 27 (21-32) mmol/L Anion Gap 5 (3-11) BUN 17 (6-23) mg/dl Creatinine 0.80 (0.6-1.2) mg/dl Est Cr Clr Drug Dosing 65.7 ml/min eGFR 86.96 BUN/Creatinine Ratio 21.3 H (10-20) Glucose 112 H (70-99(Fasting)) mg/dl Lactate 0.9 (0.4-2.0) mmol/L Calcium 9.3 (8.6-10.3) mg/dl Magnesium 1.9 (1.7-2.4) mg/dl Total Bilirubin 0.4 (0.2-1.0) mg/dl Direct Bilirubin 0.1 (0-0.2) mg/dl AST 43 H (13-39) U/L ALT 36 (7-52) U/L Alkaline Phosphatase 57 (34-104) U/L Troponin I High Sens 3.2 (0-14) pg/ml Total Protein 6.8 (6.0-8.3) gm/dl Albumin 4.1 (3.4-5.0) gm/dl Procalcitonin < 0.02 (0-0.5) ng/ml Urine Color Yellow Urine Appearance Clear (Clear) Urine pH 5.0 (4.5-7.5) Ur Specific [place] > 1.045 H (1.000-1.030) Urine Protein Trace H (Negative) Urine Glucose (UA) Negative (Negative) Urine Ketones Negative (Negative) Urine Blood Negative (Negative) Urine Nitrite Negative (Negative) Urine Bilirubin Negative (Negative) Urine Urobilinogen Negative (Negative) Ur Leukocyte Esterase Negative (Negative) Urine WBC (Auto) 0-5 (0-5) /hpf Urine RBC (Auto) 0-2 (0-2) /hpf U Hyaline Cast (Auto) 0-2 (0-2) /lpf U Epithel Cells (Auto) 0-2 (0-2) /hpf Urine Bacteria (Auto) None Seen (None Seen) Urine Comment Imaging Data Attestation: I personally reviewed and interpreted this imaging study as follows: My Impression: Chest x-ray negative. Airway clear. No pneumothorax. No consolidation. No cardiomegaly or cephalization.. No free air under the diaphragm. No fractures of the skeletal structures. Radiologist's Impression: Chest X-Ray 06/20/25 20:13 Exam(s): XR CXR 1 VIEW EXAM: XR Chest, 1 View CLINICAL HISTORY: Reason for exam: Sepsis. TECHNIQUE: Frontal view of the chest. COMPARISON: 05/23/2025 FINDINGS: Lungs: Unremarkable. No consolidation. Pleural space: Unremarkable. No pneumothorax. Heart: Unremarkable. No cardiomegaly. Mediastinum: Unremarkable. Normal mediastinal contour. Bones/joints: Unremarkable. No acute fracture. IMPRESSION: Normal chest x-ray. Electronically signed by: Guanaco Parker MD 06/20/25 21:[address] 06/20/25 20:13 Exam(s): CT HEAD Without Contrast EXAM: CT Head Without Intravenous Contrast CLINICAL HISTORY: Reason for exam: syncope chi. TECHNIQUE: Axial computed tomography images of the head/brain without intravenous contrast. CTDI is 37.95 mGy and DLP is 547.75 mGy-cm. Automated exposure control was utilized for the study. A dose lowering technique was utilized adhering to the principles of ALARA. COMPARISON: Prior head CT from July 19, 2024. FINDINGS: Brain: Remote ischemic injury of the left capsule. No hemorrhage. No significant white matter disease. No edema. Empty sella with enlarged diaphragmatic sellae. Ventricles: Unremarkable. No ventriculomegaly. Bones/joints: Remote left craniotomy. No acute fracture. Soft tissues: Unremarkable. Sinuses: Unremarkable as visualized. No acute sinusitis. Mastoid air cells: Unremarkable as visualized. No mastoid effusion. IMPRESSION: No evidence of acute intracranial pathology. Electronically signed by: Mildred Chavez MD 06/20/25 21:45 PM Abdomen/Pelvis CT 06/20/25 20:27 Exam(s): CT ABDOMEN + PELVIS With Contrast IV Amt: 90 ml optiray 320 EXAM: CT Abdomen and Pelvis With Intravenous Contrast CLINICAL HISTORY: Reason for exam: abd pain. TECHNIQUE: Axial computed tomography images of the abdomen and pelvis with intravenous contrast. CTDI is 7.97 mGy and DLP is 368.66 mGy-cm. Automated exposure control was utilized for the study. A dose lowering technique was utilized adhering to the principles of ALARA. CONTRAST: Patient received 90 ml optiray 320 of IV contrast COMPARISON: 05/25/2025 FINDINGS: Lung bases: Unremarkable. No mass. No consolidation. ABDOMEN: Liver: Unremarkable. No mass. Gallbladder and bile ducts: Postop changes prior cholecystectomy. No ductal dilation. Pancreas: Unremarkable. No mass. No ductal dilation. Spleen: Unremarkable. No splenomegaly. Adrenals: Unremarkable. No mass. Kidneys and ureters: Simple 1.5 cm right renal cysts. No follow-up of these simple cysts is necessary. No hydronephrosis. Stomach and bowel: Postop changes of the stomach. No obstruction. No mucosal thickening. PELVIS: Appendix: No findings to suggest acute appendicitis. Bladder: Unremarkable. No mass. Reproductive: Unremarkable as visualized. ABDOMEN and PELVIS: Intraperitoneal space: Unremarkable. No free air. No significant fluid collection. Bones/joints: No acute fracture. No dislocation. Soft tissues: Unremarkable. Vasculature: Unremarkable. No abdominal aortic aneurysm. Lymph nodes: Unremarkable. No enlarged lymph nodes. Tubes, lines and devices: Postoperative changes percutaneous gastrostomy tube. IMPRESSION: No acute findings in the abdomen or pelvis. Chronic changes as described above Electronically signed by: Guanaco Parker MD 06/20/25 22:47 PM ECG Data Attestation: I personally reviewed and interpreted this ECG as follows: Rate (beats per minute): 44 Rhythm: + sinus bradycardia ECG Intervals/blocks: + Normal QRS, + Normal VA and + Normal QT-c ECG ST segments: + Normal ST segments MDM Narrative 2008: The patient was evaluated in room B1. A complete history and physical exam was performed Cardiac monitoring: An order was placed for continuous cardiac monitoring. The monitor shows a rate of 40 with sinus rhythm interpreted by me At bedside [facility] [place] protocol shows a flat IVC. Per patient she was diagnosed with UTI sepsis protocols been initiated patient treated with IV fluid bolus. 2300: Vital signs stable. Labs and imaging unremarkable. Patient's blood pressure improved with IV fluids. Patient will be admitted to [facility] hospitalist team for syncope workup. Impression & Plan Syncope and collapse, Choking Discharge Plan Visit Data Chief Complaint: Syncope Stated Complaint: SYNCOPE, HYPOTENSION ED Provider: Nadege,Nato Discharge Problem: Syncope and collapse, Choking Patient Disposition: Being Evaluated by Hospitalist Condition: Fair Forms Stand Alone Forms: My [facility] Prescriptions Prescriptions: No Action sertraline 100 mg tablet 200 mg PO DAILY Patient Comments: 05/23- hasnt taking today clonazepam 1 mg tablet 1 mg PO DAILY Patient Comments: 05/23- per pt has been taking 1 full tablet daily and later in the day she takes 1/2 for her pain lidocaine 5 % adhesive patch,medicated 1 patch topical DAILY PRN (Reason: Pain) Rx Instructions: leave on most painful area for up to 12 hrs polyethylene glycol 3350 [Miralax] 17 gram Powder In Packet 17 g PO DAILY 30 Days Qty: 30 0RF sucralfate 100 mg/mL Suspension 1 g PO QID 30 Days Qty: 1200 0RF pantoprazole [Protonix] 40 mg tablet,delayed release (DR/EC) 40 mg PO BID 30 Days Qty: 60 0RF acetaminophen [Tylenol] 325 mg Tablet 650 mg PO DIRECTED PRN (Reason: PAIN, MILD-MODERATE) trazodone 50 mg tablet 50 mg PO HS nutritional supplements Liquid 105 ea feeding tube DIRECTED Patient Comments: 05/23- per pt she cut down to 3 containers as she felt 4 containers was too much Rx Instructions: ADMINISTER 4 CONTAINERS AT 105 ML/HOUR DAILY AT TOLERATED. prochlorperazine maleate [Compazine] 5 mg Tablet 5 mg PO Q6H PRN (Reason: NAUSEA/VOMITING) cyanocobalamin (vitamin B-12) 1,000 mcg/mL Solution 1,000 mcg SUBCUT .Q12WKS Patient Comments: 05/23- per pt, she is due for injection epinephrine [EpiPen] 0.3 mg/0.3 mL Auto-Injector 0.3 mg IM DIRECTED PRN (Reason: Allergic Reaction) scopolamine base 1 mg over 3 days patch 3 day 1 mg transdermal .Q72HRS Women's One Daily 18 mg iron-400 mcg-500 mg Tablet 1 tab PO DAILY dicyclomine 10 mg Capsule 10 mg PO QID PRN (Reason: abdominal pain) Qty: 60 0RF prochlorperazine [Compazine] 25 mg Suppository 25 mg VA Q12H PRN (Reason: NAUSEA/VOMITING) 15 Days Qty: 0 0RF baclofen 10 mg tablet 10 mg PO Q12H PRN (Reason: hiccups) Qty: 60 0RF Referrals Referrals: Joey Crockett MD [Primary Care Provider] -
[2025-06-20] MEDS: OPTIRAY 320 100ml IV ONE (20:34)
[2025-06-20 20:41] LABS: Hematocrit (blood only) 35.9 % (37.0-47.0); Hemoglobin 12.2 g/dL (12.0-16.0); Immature Granulocytes # (auto) 0.01 K/uL (0.01-0.20); Immature Granulocytes % (auto) 0.2 %; Mean Corpuscular Hemoglobin 30.9 pg (25.0-34.0); Mean Corpuscular Volume 90.9 fL (80.0-100.0); Platelet Count 193 K/uL (130-400); RDW Standard Deviation 41.8 fL (36.4-46.3); Red Blood Count 3.95 M/uL (4.20-5.40); White Blood Count 5.45 K/ul (4.8-10.8)
[2025-06-20 21:01] LABS: Alanine Aminotransferase 36.0 U/L (7-52); Albumin Level 4.1 gm/dl (3.4-5.0); Alkaline Phosphatase 57.0 U/L (34-104); Anion Gap 5.0 (3-11); Bilirubin,Total 0.4 mg/dl (0.2-1.0); Blood Urea Nitrogen 17.0 mg/dl (6-23); Calcium 9.3 mg/dl (8.6-10.3); Carbon Dioxide 27.0 mmol/L (21-32); Chloride 106.0 mmol/L (98-107); Creatinine Clr Calc Pharmacy 65.7 ml/min; Glucose 112.0 mg/dl (70-99(Fasting)); Magnesium 1.9 mg/dl (1.7-2.4); Potassium 4.1 mmol/L (3.5-5.1); Sodium 138.0 mmol/L (136-145); Total Protein 6.8 gm/dl (6.0-8.3)
[2025-06-20 21:10] LABS: INR 1.1 (0.9-1.1); Partial Thromboplastin Time 24 Seconds (21-31); Prothrombin Time 11.4 Seconds (9.0-12.0)
--- NOTE | 2025-06-20 21:45 | CT Scan Report ---
Exam(s): CT HEAD Without Contrast EXAM: CT Head Without Intravenous Contrast CLINICAL HISTORY: Reason for exam: syncope chi. TECHNIQUE: Axial computed tomography images of the head/brain without intravenous contrast. CTDI is 37.95 mGy and DLP is 547.75 mGy-cm. Automated exposure control was utilized for the study. A dose lowering technique was utilized adhering to the principles of ALARA. COMPARISON: Prior head CT from July 19, 2024. FINDINGS: Brain: Remote ischemic injury of the left capsule. No hemorrhage. No significant white matter disease. No edema. Empty sella with enlarged diaphragmatic sellae. Ventricles: Unremarkable. No ventriculomegaly. Bones/joints: Remote left craniotomy. No acute fracture. Soft tissues: Unremarkable. Sinuses: Unremarkable as visualized. No acute sinusitis. Mastoid air cells: Unremarkable as visualized. No mastoid effusion. IMPRESSION: No evidence of acute intracranial pathology. Electronically signed by: Mildred Chavez MD 06/20/25 21:45 PM
--- NOTE | 2025-06-20 21:52 | XRay Report ---
Exam(s): XR CXR 1 VIEW EXAM: XR Chest, 1 View CLINICAL HISTORY: Reason for exam: Sepsis. TECHNIQUE: Frontal view of the chest. COMPARISON: 05/23/2025 FINDINGS: Lungs: Unremarkable. No consolidation. Pleural space: Unremarkable. No pneumothorax. Heart: Unremarkable. No cardiomegaly. Mediastinum: Unremarkable. Normal mediastinal contour. Bones/joints: Unremarkable. No acute fracture. IMPRESSION: Normal chest x-ray. Electronically signed by: Guanaco Parker MD 06/20/25 21:51 PM
[2025-06-20] MEDS: METOCLOPRAMIDE HCL INJ 5 MG/ML 2 ML VIAL IV ONE (22:00)
[2025-06-20] MEDS: diphenhydrAMINE 50 MG/ML VIAL IV STA (22:00)
[2025-06-20 22:03] LABS: Appearance Urine Clear (Clear); Bacteria Urine Automated None Seen (None Seen); Cast Urine Automated 0-2 /lpf (0-2); Epithelial Cell Urine Auto 0-2 /hpf (0-2); Glucose Urine UA Negative (Negative); RBC Urine Automated 0-2 /hpf (0-2); WBC Urine Automated 0-5 /hpf (0-5)
--- NOTE | 2025-06-20 22:48 | CT Scan Report ---
Exam(s): CT ABDOMEN + PELVIS With Contrast IV Amt: 90 ml optiray 320 EXAM: CT Abdomen and Pelvis With Intravenous Contrast CLINICAL HISTORY: Reason for exam: abd pain. TECHNIQUE: Axial computed tomography images of the abdomen and pelvis with intravenous contrast. CTDI is 7.97 mGy and DLP is 368.66 mGy-cm. Automated exposure control was utilized for the study. A dose lowering technique was utilized adhering to the principles of ALARA. CONTRAST: Patient received 90 ml optiray 320 of IV contrast COMPARISON: 05/25/2025 FINDINGS: Lung bases: Unremarkable. No mass. No consolidation. ABDOMEN: Liver: Unremarkable. No mass. Gallbladder and bile ducts: Postop changes prior cholecystectomy. No ductal dilation. Pancreas: Unremarkable. No mass. No ductal dilation. Spleen: Unremarkable. No splenomegaly. Adrenals: Unremarkable. No mass. Kidneys and ureters: Simple 1.5 cm right renal cysts. No follow-up of these simple cysts is necessary. No hydronephrosis. Stomach and bowel: Postop changes of the stomach. No obstruction. No mucosal thickening. PELVIS: Appendix: No findings to suggest acute appendicitis. Bladder: Unremarkable. No mass. Reproductive: Unremarkable as visualized. ABDOMEN and PELVIS: Intraperitoneal space: Unremarkable. No free air. No significant fluid collection. Bones/joints: No acute fracture. No dislocation. Soft tissues: Unremarkable. Vasculature: Unremarkable. No abdominal aortic aneurysm. Lymph nodes: Unremarkable. No enlarged lymph nodes. Tubes, lines and devices: Postoperative changes percutaneous gastrostomy tube. IMPRESSION: No acute findings in the abdomen or pelvis. Chronic changes as described above Electronically signed by: Guanaco Parker MD 06/20/25 22:47 PM
[2025-06-21] MEDS: HYDROmorphone INJ 0.5 MG/0.5 ML SYR IV STA (01:14)
[2025-06-21] MEDS: PROMETHAZINE 12.5 MG/50.5 ML BAG IV STA (01:15)
--- NOTE | 2025-06-21 02:24 | History & Physical Report ---
Date of Service June 21, 2025 Assessment & Plan (1) Syncope and collapse: Plan: 55-year-old female with past medical history significant for prediabetes, history of sleep apnea, history of protein calorie malnutrition, history of persistent nausea and vomiting, status post Maryuri-en-Y gastric surgery with postgastrectomy syndrome and status post PEG tube feeding, GERD, depression, history of pulmonary embolism 2018 currently not on anticoagulation, history of left basal hemorrhagic CVA requiring craniotomy in October 2022 with eventual cranioplasty in March 2023, presents with syncopal episode. Patient was recently in the hospital for symptomatic anemia and syncope. Last admission her hemoglobin was 6.9 requiring 3 unit of PRBCs . Blood loss thought to be secondary to upper GI bleed. EGD on 05/25 showed gastritis and nonbleeding ulceration at gastrojejunal anastomosis. Hemoglobin improved. Patient was discharged on Protonix twice daily and Carafate 4 times daily. She also had UTI cultures grew MSSA treated with Keflex. Electrolytes were replaced. She was discharged on 05/26/2025. Today patient was trying to eat steak and started having choking. Patient's son did Heimlich maneuver and after that patient had syncopal episode. In the ER monitor shows bradycardia. Labs were okay. CT head and CT abdomen pelvis no acute findings. Currently patient is somewhat drowsy. Have to constantly arouse her to ask questions. Says he has some headache. Denies runny nose or sore throat. No fevers. No cough. Denies any chest pain or shortness of breath. Has some nausea and abdominal discomfort. Bowels are moving okay. Patient seems after gastric bypass in recovery phase had significant food aversion and nausea and status post PEG tube placement in the remnant stomach. Patient gets tube feeds. Patient states she can eat food and says she can eat what ever she wants by mouth. During previous admission she told that she can eat few bites of soft food. Syncope After choking on steak Labs okay EKG shows sinus bradycardia CT head okay Last last admission she was admitted for syncope thought to be from GI bleed Will monitor on telemetry Will follow echo Cardiac consult Choking episode Patient mostly gets tube feeds But states she can eat also CT abdomen pelvis okay Speech consult Nutrition On tube feeds Dietitian consult Recent history of GI bleed On Protonix and Carafate Depression anxiety On Zoloft and Klonopin and trazodone DVT prophylaxis SCDs for now Disposition Telemetry Full code. History of Present Illness Chief Complaint: Syncope Primary Care Provider: Joey Crockett MD 55-year-old female with past medical history significant for prediabetes, history of sleep apnea, history of protein calorie malnutrition, history of persistent nausea and vomiting, status post Maryuri-en-Y gastric surgery with postgastrectomy syndrome and status post PEG tube feeding, GERD, depression, history of pulmonary embolism 2018 currently not on anticoagulation, history of left basal hemorrhagic CVA requiring craniotomy in October 2022 with eventual cranioplasty in March 2023, presents with syncopal episode. Patient was recently in the hospital for symptomatic anemia and syncope. Last admission her hemoglobin was 6.9 requiring 3 unit of PRBCs . Blood loss thought to be secondary to upper GI bleed. EGD on 05/25 showed gastritis and nonbleeding ulceration at gastrojejunal anastomosis. Hemoglobin improved. Patient was discharged on Protonix twice daily and Carafate 4 times daily. She also had UTI cultures grew MSSA treated with Keflex. Electrolytes were replaced. She was discharged on 05/26/2025. Today patient was trying to eat steak and started having choking. Patient's son did Heimlich maneuver and after that patient had syncopal episode. In the ER monitor shows bradycardia. Labs were okay. CT head and CT abdomen pelvis no acute findings. Currently patient is somewhat drowsy. Have to constantly arouse her to ask questions. Says he has some headache. Denies runny nose or sore throat. No fevers. No cough. Denies any chest pain or shortness of breath. Has some nausea and abdominal discomfort. Bowels are moving okay. Patient seems after gastric bypass in recovery phase had significant food aversion and nausea and status post PEG tube placement in the remnant stomach. Patient gets tube feeds. Patient states she can eat food and says she can eat what ever she wants by mouth. During previous admission she told that she can eat few bites of soft food. Past medical history. As mentioned above Past surgical history. Bilateral breast enhancement. Colonoscopy. cystoscopy with stent placement. Dental surgery. EGD. Laparoscopic gastrostomy without reconstruction gastric tube. Laparoscopic gastric bypass Maryuri-en-Y. Laparoscopic appendectomy. Injection of lumbosacral spine. Partial removal of colon for diverticulitis. Laparoscopic cholecystectomy. Small bowel endoscopy with biopsy. Social history. . Quit smoking 2023. Smoked 0.3 pack a day for 16 years. No alcohol use currently. Smokes marijuana once or twice a week. Family history. Paternal grandfather had prostate cancer. Maternal grandfather had [place]. Maternal grandmother had stroke. Father had CAD. Mother had high cholesterol. Allergies Allergy/AdvReac Type Severity Reaction Status Date / Time No Known Allergies Allergy Verified 05/25/25 12:46 Home Medications Medication Instructions Recorded Confirmed Type sertraline 100 mg tablet 200 mg PO DAILY 05/01/24 06/20/25 History clonazepam 1 mg tablet 1 mg PO DAILY 06/27/24 06/20/25 History acetaminophen 325 mg tablet 650 mg PO DIRECTED PRN PAIN, 11/04/24 06/20/25 History (Tylenol) MILD-MODERATE cyanocobalamin (vitamin B-12) 1,000 mcg subcut .Q12WKS 11/04/24 06/20/25 History 1,000 mcg/mL injection solution epinephrine 0.3 mg/0.3 mL 0.3 mg IM DIRECTED PRN Allergic 11/04/24 06/20/25 History injection, auto-injector (EpiPen) Reaction [id number] carb-vit K 1 tab PO DAILY 11/04/24 06/20/25 History 18 mg iron-400 mcg-500 mg tablet (Women's One Daily) nutritional supplements 105 ea feeding tube DIRECTED 11/04/24 06/20/25 History prochlorperazine maleate 5 mg 5 mg PO Q6H PRN NAUSEA/VOMITING 11/04/24 06/20/25 History tablet (Compazine) scopolamine base 1 mg over 3 days 1 mg transdermal .Q72HRS 11/04/24 06/20/25 History transdermal patch trazodone 50 mg tablet 50 mg PO HS Sleep 11/04/24 06/20/25 History baclofen 10 mg tablet 10 mg PO Q12H PRN hiccups #60 tabs 11/09/24 06/20/25 Rx dicyclomine 10 mg capsule 10 mg PO QID PRN abdominal pain 11/09/24 06/20/25 Rx #60 caps prochlorperazine 25 mg rectal 25 mg NC Q12H PRN NAUSEA/VOMITING 11/09/24 06/20/25 Rx suppository (Compazine) 15 days #0 ea lidocaine 5 % topical patch 1 patch topical DAILY PRN Pain 05/23/25 06/20/25 History pantoprazole 40 mg tablet,delayed 40 mg PO BID 30 days #60 tabs 05/26/25 06/20/25 Rx release (Protonix) polyethylene glycol 3350 17 gram 17 g PO DAILY 30 days #30 ea 05/26/25 06/20/25 Rx oral powder packet (Miralax) sucralfate 100 mg/mL oral 1 g (10 mL) PO QID 30 days #1,200 05/26/25 06/20/25 Rx suspension mL Past Med/Surg History Problem List (Updated 06/20/25 @ 23:28 by Nato Light MD) Choking (Acute) Right sided abdominal pain Symptomatic anemia (Acute) Syncope and collapse (Acute) Hypomagnesemia (Acute) Acute hypokalemia (Acute) Nausea & vomiting (Acute) Palliative care by specialist Left sided abdominal pain (Acute) Left lower quadrant abdominal pain (Acute) Taste perversion Leukocytosis (Acute) Intractable nausea and vomiting (Acute) Medical History Anxiety Depression GERD (gastroesophageal reflux disease) History of hemorrhagic cerebrovascular accident (CVA) with residual deficit occasional exp aphasia ESTEBAN (obstructive sleep apnea) Moderate protein-calorie malnutrition Unintentional weight loss Gastrostomy present Chronic nausea Pulmonary embolism Endometriosis Hemorrhagic stroke Surgical History Hx of esophagogastroduodenoscopy History of Maryuri-en-Y gastric bypass H/O wisdom tooth extraction History of partial colectomy History of hysterectomy Hx of cholecystectomy History of appendectomy H/O craniotomy Social History Smoking Status: Current every day smoker Tobacco Type: E-cigarettes / Vaping Second Hand Exposure: No; Do You Dip or Chew Tobacco: No; Hx Alcohol Use: No Hx Substance Use: No Preferred Language: Korean 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 Ability: Effective [employer] Required: No Beliefs That Will Affect Care: None Current Living Situation: Spouse Feels Safe at Home: Yes Safety Concerns: Feels Safe At This Time Assistive Devices: Other Review of Systems Review of Systems: Unobtainable due to reduced consciousness Physical Exam Physical Exam: General- Drowsy Head- atraumatic Eyes- PERRL. ENT- oropharynx clear Neck- supple, no JVD. Lungs- clear to auscultation no wheezing or crackles. Heart- regular rhythm; no murmur, no gallop. Abdomen- normal bowel sounds, soft, nontender, no distension, peg tube site mild erythema Extremities- no pretibial edema, no erythema seen Neuro- Drowsy but arousable, speaks in low volume PERRL, ; no facial palsy; no dysarthria; moves extremities Results & Data Results & Data Vital Signs (Past 12 Hours) Vital Signs Pulse Resp BP Pulse Ox O2 Del Method 06/21/25 00:05 40 L 06/20/25 21:30 48 L 16 110/60 99 06/20/25 21:15 50 L 16 102/87 98 06/20/25 21:00 46 L 14 107/67 99 06/20/25 20:45 46 L 16 102/67 98 06/20/25 20:15 46 L 14 105/64 97 06/20/25 20:09 48 L 14 93/55 L 99 Room Air 06/20/25 20:07 54 L Diagnostic Findings Laboratory Results WBC 5.45 K/ul (4.8-10.8) 06/20/25 20:20 RBC 3.95 M/uL (4.20-5.40) L 06/20/25 20:20 Hgb 12.2 g/dL (12.0-16.0) 06/20/25 20:20 Hct 35.9 % (37.0-47.0) L 06/20/25 20:20 MCV 90.9 fL (80.0-100.0) 06/20/25 20:20 MCH 30.9 pg (25.0-34.0) 06/20/25 20:20 MCHC 34.0 g/dL (32.0-36.0) 06/20/25 20:20 RDW Std Deviation 41.8 fL (36.4-46.3) 06/20/25 20:20 RDW Coeff of Aysha 12.7 % (11.5-14.5) 06/20/25 20:20 Plt Count 193 K/uL (130-400) 06/20/25 20:20 MPV 12.2 fL (9.4-12.4) 06/20/25 20:20 Immature Gran % (Auto) 0.2 % 06/20/25 20:20 Neut % (Auto) 57.7 % 06/20/25 20:20 Lymph % (Auto) 35.0 % 06/20/25 20:20 [place] % (Auto) 5.7 % 06/20/25 20:20 Eos % (Auto) 0.7 % 06/20/25 20:20 Baso % (Auto) 0.7 % 06/20/25 20:20 Neut # (Auto) 3.14 K/uL (1.40-6.50) 06/20/25 20:20 Lymph # (Auto) 1.91 K/uL (1.20-3.40) 06/20/25 20:20 [place] # (Auto) 0.31 K/uL (0.11-0.59) 06/20/25 20:20 Eos # (Auto) 0.04 K/uL (0.00-0.50) 06/20/25 20:20 Baso # (Auto) 0.04 K/uL (0.00-0.20) 06/20/25 20:20 Immature Gran # (Auto) 0.01 K/uL (0.01-0.20) 06/20/25 20:20 PT 11.4 Seconds (9.0-12.0) 06/20/25 20:20 INR 1.1 (0.9-1.1) 06/20/25 20:20 APTT 24 Seconds (21-31) 06/20/25 20:20 PTT Ratio 0.9 06/20/25 20:20 Sodium 138 mmol/L (136-145) 06/20/25 20:20 Potassium 4.1 mmol/L (3.5-5.1) 06/20/25 20:20 Chloride 106 mmol/L (98-107) 06/20/25 20:20 Carbon Dioxide 27 mmol/L (21-32) 06/20/25 20:20 Anion Gap 5 (3-11) 06/20/25 20:20 BUN 17 mg/dl (6-23) 06/20/25 20:20 Creatinine 0.80 mg/dl (0.6-1.2) 06/20/25 20:20 Est Cr Clr Drug Dosing 65.7 ml/min 06/20/25 20:20 eGFR 86.96 06/20/25 20:20 BUN/Creatinine Ratio 21.3 (10-20) H 06/20/25 20:20 Glucose 112 mg/dl (70-99(Fasting)) H 06/20/25 20:20 Lactate 0.9 mmol/L (0.4-2.0) 06/20/25 20:20 Calcium 9.3 mg/dl (8.6-10.3) 06/20/25 20:20 Magnesium 1.9 mg/dl (1.7-2.4) 06/20/25 20:20 Total Bilirubin 0.4 mg/dl (0.2-1.0) 06/20/25 20:20 Direct Bilirubin 0.1 mg/dl (0-0.2) 06/20/25 20:20 AST 43 U/L (13-39) H 06/20/25 20:20 ALT 36 U/L (7-52) 06/20/25 20:20 Alkaline Phosphatase 57 U/L (34-104) 06/20/25 20:20 Troponin I High Sens 3.2 pg/ml (0-14) 06/20/25 20:20 Total Protein 6.8 gm/dl (6.0-8.3) 06/20/25 20:20 Albumin 4.1 gm/dl (3.4-5.0) 06/20/25 20:20 Procalcitonin < 0.02 ng/ml (0-0.5) 06/20/25 20:20 Urine Color Yellow 06/20/25:40 Urine Appearance Clear (Clear) 06/20/25 21:40 Urine pH 5.0 (4.5-7.5) 06/20/25:40 Ur Specific [place] > 1.045 (1.000-1.030) H 06/20/25 21:40 Urine Protein Trace (Negative) H 06/20/25 21:40 Urine Glucose (UA) Negative (Negative) 06/20/25:40 Urine Ketones Negative (Negative) 06/20/25:40 Urine Blood Negative (Negative) 06/20/25 21:40 Urine Nitrite Negative (Negative) 06/20/25 21:40 Urine Bilirubin Negative (Negative) 06/20/25 21:40 Urine Urobilinogen Negative (Negative) 06/20/25 21:40 Ur Leukocyte Esterase Negative (Negative) 06/20/25 21:40 Urine WBC (Auto) 0-5 /hpf (0-5) 06/20/25 21:40 Urine RBC (Auto) 0-2 /hpf (0-2) 06/20/25 21:40 U Hyaline Cast (Auto) 0-2 /lpf (0-2) 06/20/25 21:40 U Epithel Cells (Auto) 0-2 /hpf (0-2) 06/20/25 21:40 Urine Bacteria (Auto) None Seen (None Seen) 06/20/25 21:40 Urine Comment 06/20/25 21:40 Impressions Chest X-Ray 06/20/25 20:13 Exam(s): XR CXR 1 VIEW EXAM: XR Chest, 1 View CLINICAL HISTORY: Reason for exam: Sepsis. TECHNIQUE: Frontal view of the chest. COMPARISON: 05/23/2025 FINDINGS: Lungs: Unremarkable. No consolidation. Pleural space: Unremarkable. No pneumothorax. Heart: Unremarkable. No cardiomegaly. Mediastinum: Unremarkable. Normal mediastinal contour. Bones/joints: Unremarkable. No acute fracture. IMPRESSION: Normal chest x-ray. Electronically signed by: Guanaco Parker MD 06/20/25 21:[address] 06/20/25 20:13 Exam(s): CT HEAD Without Contrast EXAM: CT Head Without Intravenous Contrast CLINICAL HISTORY: Reason for exam: syncope chi. TECHNIQUE: Axial computed tomography images of the head/brain without intravenous contrast. CTDI is 37.95 mGy and DLP is 547.75 mGy-cm. Automated exposure control was utilized for the study. A dose lowering technique was utilized adhering to the principles of ALARA. COMPARISON: Prior head CT from July 19, 2024. FINDINGS: Brain: Remote ischemic injury of the left capsule. No hemorrhage. No significant white matter disease. No edema. Empty sella with enlarged diaphragmatic sellae. Ventricles: Unremarkable. No ventriculomegaly. Bones/joints: Remote left craniotomy. No acute fracture. Soft tissues: Unremarkable. Sinuses: Unremarkable as visualized. No acute sinusitis. Mastoid air cells: Unremarkable as visualized. No mastoid effusion. IMPRESSION: No evidence of acute intracranial pathology. Electronically signed by: Mildred Chavez MD 06/20/25 21:45 PM Abdomen/Pelvis CT 06/20/25 20:27 Exam(s): CT ABDOMEN + PELVIS With Contrast IV Amt: 90 ml optiray 320 EXAM: CT Abdomen and Pelvis With Intravenous Contrast CLINICAL HISTORY: Reason for exam: abd pain. TECHNIQUE: Axial computed tomography images of the abdomen and pelvis with intravenous contrast. CTDI is 7.97 mGy and DLP is 368.66 mGy-cm. Automated exposure control was utilized for the study. A dose lowering technique was utilized adhering to the principles of ALARA. CONTRAST: Patient received 90 ml optiray 320 of IV contrast COMPARISON: 05/25/2025 FINDINGS: Lung bases: Unremarkable. No mass. No consolidation. ABDOMEN: Liver: Unremarkable. No mass. Gallbladder and bile ducts: Postop changes prior cholecystectomy. No ductal dilation. Pancreas: Unremarkable. No mass. No ductal dilation. Spleen: Unremarkable. No splenomegaly. Adrenals: Unremarkable. No mass. Kidneys and ureters: Simple 1.5 cm right renal cysts. No follow-up of these simple cysts is necessary. No hydronephrosis. Stomach and bowel: Postop changes of the stomach. No obstruction. No mucosal thickening. PELVIS: Appendix: No findings to suggest acute appendicitis. Bladder: Unremarkable. No mass. Reproductive: Unremarkable as visualized. ABDOMEN and PELVIS: Intraperitoneal space: Unremarkable. No free air. No significant fluid collection. Bones/joints: No acute fracture. No dislocation. Soft tissues: Unremarkable. Vasculature: Unremarkable. No abdominal aortic aneurysm. Lymph nodes: Unremarkable. No enlarged lymph nodes. Tubes, lines and devices: Postoperative changes percutaneous gastrostomy tube. IMPRESSION: No acute findings in the abdomen or pelvis. Chronic changes as described above Electronically signed by: Guanaco Parker MD 06/20/25 22:47 PM ECG Additional Comments: ECG. Sinus bradycardia rate of 44. No significant changes found. QTc 403. Code Status & VTE Plan VTE Prophylaxis Plan VTE Prophylaxis will be ordered: Yes
[2025-06-21] MEDS ORDERED: NON-FORMULARY MEDICATION (Nutritional Supplements Liquid) feeding tube SCH (02:44)
[2025-06-21] MEDS ORDERED: LIDOCAINE 5% 1 PATCH TD PRN (02:44)
[2025-06-21] MEDS ORDERED: DICYCLOMINE HCL 10 MG CAP PO PRN (02:44)
[2025-06-21] MEDS ORDERED: NITROGLYCERIN SL 0.4 MG/TAB TAB SL PRN (02:44)
[2025-06-21] MEDS ORDERED: BACLOFEN 10 MG TAB PO PRN (02:44)
[2025-06-21] MEDS ORDERED: ACETAMINOPHEN 325 MG TAB PO PRN (02:44)
[2025-06-21] MEDS: SODIUM CHLORIDE 0.9% 1,000 ML IV SCH (03:26)
[2025-06-21] MEDS: SODIUM CHLORIDE 0.9% 500 ML IV ONE (04:39)
[2025-06-21] MEDS: ACETAMINOPHEN 1,000 MG/100 ML VIAL IV STA (06:39)
[2025-06-21 07:07] LABS: Hematocrit (blood only) 33.7 % (37.0-47.0); Hemoglobin 11.3 g/dL (12.0-16.0); Immature Granulocytes # (auto) 0.02 K/uL (0.01-0.20); Immature Granulocytes % (auto) 0.3 %; Mean Corpuscular Hemoglobin 30.5 pg (25.0-34.0); Mean Corpuscular Volume 90.8 fL (80.0-100.0); Platelet Count 149 K/uL (130-400); RDW Standard Deviation 42.2 fL (36.4-46.3); Red Blood Count 3.71 M/uL (4.20-5.40); White Blood Count 5.96 K/ul (4.8-10.8)
[2025-06-21 07:29] LABS: Anion Gap 5.0 (3-11); Blood Urea Nitrogen 11.0 mg/dl (6-23); Calcium 8.1 mg/dl (8.6-10.3); Carbon Dioxide 23.0 mmol/L (21-32); Chloride 112.0 mmol/L (98-107); Creatinine Clr Calc Pharmacy 92.2 ml/min; Glucose 88.0 mg/dl (70-99(Fasting)); Magnesium 1.8 mg/dl (1.7-2.4); Potassium 3.9 mmol/L (3.5-5.1); Sodium 140.0 mmol/L (136-145)
[2025-06-21] MEDS: SUCRALFATE 1 GM/10 ML UDC PO SCH (08:11)
[2025-06-21] MEDS: POLYETHYLENE (MIRALAX) 17 GM PACK PO SCH (08:12)
[2025-06-21] MEDS: ENOXAPARIN INJ 40 MG/0.4 ML SYR SQ SCH (08:14)
[2025-06-21] MEDS: SCOPOLAMINE 1 MG/72 HR TDSY PATCH TD SCH (08:14)
[2025-06-21] MEDS: clonazePAM 1 MG TAB PO SCH (08:14)
[2025-06-21] MEDS: CEROVITE ADV FORMULA TAB PO SCH (08:27)
[2025-06-21] MEDS: SERTRALINE HCL 100 MG TABLET PO SCH (08:27)
--- NOTE | 2025-06-21 08:52 | Cardiology Consultation ---
Date of Consultation June 21, 2025 Assessment & Plan (1) Choking: (2) Syncope and collapse: (3) Sinus bradycardia: Plan Patient is a 55 year old female who was admitted after a choking episode and syncope, improving after Heimlich maneuver. On arrival, patient found to have sinus bradycardia with HR in the 40's. No high degree AV block. This is similar to outpatient EKG in 2023 and EKG in May 2025. Echo this admission with normal LVEF, no wall motion abnormalities. She has chronically low BP and HR. No indication for PPM at this time. She is on multiple medications that can potential cause bradycardia including scopolamine patch, trazodone. Would recommend F/U with GI and PCP to potentially wean off these therapies. Recommend outpatient ZIO monitor to evaluate HR's and arrhythmias as an outpatient. Avoid AV nata blocking therapies Recent GI bleed - hbg relatively stable at 11-12 this admission. Continue PPI and Carafate. F/U with GI Further recommendations pending discussion and evaluation with Dr. Sanon. I spent a total of 60 minutes on the date of service in preparation, delivery, and documentation of the care provided to this patient, excluding any time spent in the performance of separately billed services. Alicia Richards PA-C Department of Cardiology, [facility] This chart was completed in part utilizing Speech Voice Recognition Software. Grammatical errors, random word insertions, pronoun errors, and incomplete sentences are an occasional consequence of this system due to software limitations, ambient noise, and hardware issues. Any formal questions or concerns about the content, text, or information contained within the body of this dictation should be directly addressed to the provider for clarification. Supervising Physician Co-Signing Physician Notes Patient seen and examined. Past medical history, surgical history, social history and family history have been reviewed. The medical record and all the above studies have been reviewed. Case DW JAS including management. 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 Recommendations: check orthostatics GI evaluation ECHO -as per report correct and f/u electrolytes f/u renal function avoid hypovolemia keep patient euvolemic f/u H/H increase fluid intake Tele - no sig arrhythmia OP ZIO monitoring f/u Blood Cultures History of Present Illness Reason for Consultation: choking episode/syncope; Bradycardia Requesting Physician: Brenda Hospitalist Attending Physician: Dr. Sanon History of Present Illness Patient is a 55 year old female with a complex history including prior gastric bypass surgery then developing post gastric surgery syndrome with protein malnutrition, intolerance of food with persistent nausea and vomiting, ultimately requiring G tube placement about 1 year ago. Last month she was admitted with acute anemia/GI Bleed. Hbg was low at 6.9. Required transfusion. Endoscopy revealed non bleeding ulceration at the GJ anastomosis. She was started on Protonix and Carafate. Hbg on admission improved and stable at 11-12. Yesterday, patient reports she had eaten a bite of steak and does not recall the next few events. apparently she was on the ground. her son gave her the Heimlich maneuver and steak came out of her throat. She then awakened. No prior cardiac history reported. She had a dobutamine stress echo in 2019 which was negative for inducible ischemia with normal LVEF, mildly dilated RV and no significant valvular disease present. She had an echo in 2023 with normal LVEF, and also no significant valvular disease. Cardiology consulted due to sinus bradycardia on admitting EKG. Patient has had intermittent sinus bradycardia in the 40's on EKG's in the past. She admits to mild dizziness at times, but no syncope until the event yesterday. She had chronically low BP per patient. She is on multiple antinausea/vomiting medications that can cause bradycardia as well. At time of consult, patient resting in bed comfortably. No fever or chills. No dizziness. HR in the 50's. No pauses or high degree AV block. Allergies Allergy/AdvReac Type Severity Reaction Status Date / Time No Known Allergies Allergy Verified 05/25/25 12:46 Home Medications Medication Instructions Recorded Confirmed Type sertraline 100 mg tablet 200 mg PO DAILY 05/01/24 06/20/25 History clonazepam 1 mg tablet 1 mg PO DAILY 06/27/24 06/20/25 History acetaminophen 325 mg tablet 650 mg PO DIRECTED PRN PAIN, 11/04/24 06/20/25 History (Tylenol) MILD-MODERATE cyanocobalamin (vitamin B-12) 1,000 mcg subcut .Q12WKS 11/04/24 06/20/25 History 1,000 mcg/mL injection solution epinephrine 0.3 mg/0.3 mL 0.3 mg IM DIRECTED PRN Allergic 11/04/24 06/20/25 History injection, auto-injector (EpiPen) Reaction [id number] carb-vit K 1 tab PO DAILY 11/04/24 06/20/25 History 18 mg iron-400 mcg-500 mg tablet (Women's One Daily) nutritional supplements 105 ea feeding tube DIRECTED 11/04/24 06/20/25 History prochlorperazine maleate 5 mg 5 mg PO Q6H PRN NAUSEA/VOMITING 11/04/24 06/20/25 History tablet (Compazine) scopolamine base 1 mg over 3 days 1 mg transdermal .Q72HRS 11/04/24 06/20/25 History transdermal patch trazodone 50 mg tablet 50 mg PO HS Sleep 11/04/24 06/20/25 History baclofen 10 mg tablet 10 mg PO Q12H PRN hiccups #60 tabs 11/09/24 06/20/25 Rx dicyclomine 10 mg capsule 10 mg PO QID PRN abdominal pain 11/09/24 06/20/25 Rx #60 caps prochlorperazine 25 mg rectal 25 mg UT Q12H PRN NAUSEA/VOMITING 11/09/24 06/20/25 Rx suppository (Compazine) 15 days #0 ea lidocaine 5 % topical patch 1 patch topical DAILY PRN Pain 05/23/25 06/20/25 History pantoprazole 40 mg tablet,delayed 40 mg PO BID 30 days #60 tabs 05/26/25 06/20/25 Rx release (Protonix) polyethylene glycol 3350 17 gram 17 g PO DAILY 30 days #30 ea 05/26/25 06/20/25 Rx oral powder packet (Miralax) sucralfate 100 mg/mL oral 1 g (10 mL) PO QID 30 days #1,200 05/26/25 06/20/25 Rx suspension mL Patient History Medical History Anxiety Depression GERD (gastroesophageal reflux disease) History of hemorrhagic cerebrovascular accident (CVA) with residual deficit occasional exp aphasia ESTEBAN (obstructive sleep apnea) Moderate protein-calorie malnutrition Unintentional weight loss Gastrostomy present Chronic nausea Pulmonary embolism Endometriosis Hemorrhagic stroke Surgical History Hx of esophagogastroduodenoscopy History of Maryuri-en-Y gastric bypass H/O wisdom tooth extraction History of partial colectomy History of hysterectomy Hx of cholecystectomy History of appendectomy H/O craniotomy Social History Smoking Status: Current every day smoker Tobacco Type: E-cigarettes / Vaping Second Hand Exposure: No; Do You Dip or Chew Tobacco: No; Hx Alcohol Use: No Hx Substance Use: No Preferred Language: Haitian 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 Ability: Effective Postbed Stitcher Required: No Beliefs That Will Affect Care: None Current Living Situation: Spouse Feels Safe at Home: Yes Assistive Devices: Other Review of Systems Review of Systems: All systems reviewed & are unremarkable except as noted in HPI & below Physical Exam Constitutional: WD/WN, vitals as above no acute distress Neck: trachea midline, no thyromegaly Respiratory: normal respiratory effort, lungs clear to auscultation Cardiovascular: Rate/Rhythm: regular rate and regular rhythm Heart Sounds: normal S1 and normal S2; no murmur Neurologic: PERRL, EOMI, accommodation nl, no face palsy, no dysarthria Results & Data Vital Signs (Past 12 Hours) Vital Signs Temp Pulse Pulse Resp BP BP Pulse Ox 06/21/25 07:00 41 L 18 110/63 97 06/21/25 06:56 40 L 06/21/25 06:00 36.5 C 40 L 16 98/60 L 97 06/21/25 04:37 34 L 16 94/65 L 97 06/21/25 04:00 47 L 16 93/55 L 96 06/21/25 02:46 48 L 18 107/53 L 95 06/21/25 02:46 06/21/25 00:05 40 L 06/20/25 21:30 48 L 16 110/60 99 06/20/25 21:15 50 L 16 102/87 98 06/20/25 21:00 46 L 14 107/67 99 Pulse Ox O2 Del Method O2 Del Method 06/21/25 07:00 Room Air 06/21/25 06:56 06/21/25 06:00 Room Air 06/21/25 04:37 Room Air 06/21/25 04:00 Room Air 06/21/25 02:46 Room Air 06/21/25 02:46 95 Room Air 06/21/25 00:05 06/20/25 21:30 06/20/25 21:15 06/20/25 21:00 Laboratory Results Cardiac Enzymes 06/20/25 06/21/25 Range/Units 20:20 06:52 AST 43 H (13-39) U/L Troponin I High Sens 3.2 4.2 (0-14) pg/ml Coagulation 06/20/25 Range/Units 20:20 PT 11.4 (9.0-12.0) Seconds APTT 24 (21-31) Seconds CBC 06/20/25 06/21/25 Range/Units 20:20 06:52 WBC 5.45 5.96 (4.8-10.8) K/ul RBC 3.95 L 3.71 L (4.20-5.40) M/uL Hgb 12.2 11.3 L (12.0-16.0) g/dL Hct 35.9 L 33.7 L (37.0-47.0) % Plt Count 193 149 (130-400) K/uL Neut # (Auto) 3.14 3.27 (1.40-6.50) K/uL Lymph # (Auto) 1.91 2.01 (1.20-3.40) K/uL [place] # (Auto) 0.31 0.53 (0.11-0.59) K/uL Eos # (Auto) 0.04 0.07 (0.00-0.50) K/uL Baso # (Auto) 0.04 0.06 (0.00-0.20) K/uL Comprehensive Metabolic Panel 06/20/25 06/21/25 Range/Units 20:20 06:52 Sodium 138 140 (136-145) mmol/L Potassium 4.1 3.9 (3.5-5.1) mmol/L Chloride 106 112 H (98-107) mmol/L Carbon Dioxide 27 23 (21-32) mmol/L BUN 17 11 (6-23) mg/dl Creatinine 0.80 0.57 L (0.6-1.2) mg/dl Glucose 112 H 88 (70-99(Fasting)) mg/dl Calcium 9.3 8.1 L (8.6-10.3) mg/dl Direct Bilirubin 0.1 (0-0.2) mg/dl AST 43 H (13-39) U/L ALT 36 (7-52) U/L Alkaline Phosphatase 57 (34-104) U/L Total Protein 6.8 (6.0-8.3) gm/dl Albumin 4.1 (3.4-5.0) gm/dl Intake and Output 06/20/25 06/21/25 06/21/25 22:59 06:59 14:59 Intake Total 1000 / 1650.5 650.5 / 1650.5 Balance 1000 / 1650.5 650.5 / 1650.5 Intake: IV 1000 / 1650.5 650.5 / 1650.5 Acetaminophen 1,000 mg In 100 100 / 100 ml @ 400 mls/hr IV NOW STA Rx#: [id number] Promethazine 12.5 mg In 50.5 ml 50.5 / 50.5 @ 202 mls/hr IV NOW STA Rx#: [id number] Sodium Chloride 0.9% 500 ml @ 1000 / 1500 500 / 1500 999 mls/hr IV .Q31M ONE Rx#: [id number] Other: Other Intake Source npo Weight 53.4 kg 53.4 kg Weight Measurement Method Built in [facility] Patient Weight 06/22/25 06:59 Weight 53.4 kg Diagnostic Findings Telemetry reviewed: Sinus bradycardia in the 50's. No pauses or high degree AV block EKG reviewed from admission: Sinus bradycardia at 44 bmp No significant change form prior EKG in May 2025 Prior outside data reviewed: EKG reviewed from 10/31/23: Sinus bradycardia at 49 bmp Echo report reviewed dated 08/2023: Normal LVEF at 55-60% No wall motion abnormalities Grade I diastolic dysfunction Mild TR No pulm hypertension DSE report reviewed from 05/2020 Interpretation Summary The stress echo is negative for inducible ischemia. Resting Study: The qualitative LV ejection fraction is 55-59% (normal). The left ventricular wall motion is normal. The right ventricle appears mildly dilated in limited views with utilization of ultrasonic contrast. The right ventricular systolic function is normal as assessed by tricuspid annular plane systolic excursion (TAPSE) (normal >1.7 cm). No significant valvular disease is present. Medications Administered Current Inpatient Medications Acetaminophen (Acetaminophen 325 Mg Tab) 650 mg PO Q4H PRN PRN Reason: Pain or Fever Stop: 07/21/25 02:43 Baclofen (Baclofen 10 Mg Tab) 10 mg PO Q12H PRN PRN Reason: hiccups Stop: 07/21/25 02:43 Clonazepam (Clonazepam 1 Mg Tab) 1 mg PO DAILY [facility]ANDRA Stop: 07/21/25 08:59 Last Admin: 06/21/25 08:14 Dose: 1 mg Dicyclomine HCl (Dicyclomine Hcl 10 Mg Cap) 10 mg PO QID PRN PRN Reason: abdominal pain Stop: 07/21/25 02:43 Enoxaparin Sodium (Enoxaparin Inj 40 Mg/0.4 Ml Syr) 40 mg SQ Q24H CASANDRA Stop: 07/21/25 08:59 Last Admin: 06/21/25 08:14 Dose: 40 mg Epinephrine HCl (Epinephrine Inj 1 Mg/Ml Vial) 0.3 mg IM UD PRN PRN Reason: Allergic Reaction Stop: 07/21/25 03:14 Sodium Chloride (Nss) 1,000 mls @ 100 mls/hr IV .Q10H [facility] Stop: 06/24/25 02:43 Last Admin: 06/21/25 03:26 Dose: 100 mls/hr Lidocaine (Lidocaine 5% 1 Patch) 1 patch TD DAILY PRN PRN Reason: Pain Stop: 07/21/25 02:43 Miscellaneous (Remove Lidoderm Patch) 1 each N/A DAILY@2100 [facility] Stop: 07/21/25 20:59 Miscellaneous (Remove Transderm-Scop Patch) 1 each N/A Q72H [facility] Stop: 07/21/25 08:58 Miscellaneous (Check Scopolamine Patch Placement) 1 each N/A QS [facility] Stop: 07/21/25 15:59 Multivitamins/Minerals (Cerovite Adv Formula Tab) 1 tab PO DAILY [facility] Stop: 07/21/25 08:59 Last Admin: 06/21/25 08:27 Dose: 1 tab Nitroglycerin (Nitroglycerin Sl 0.4 Mg/Tab Tab) 0.4 mg SL Q5M PRN PRN Reason: Chest Pain Stop: 07/21/25 02:43 Ondansetron HCl (Ondansetron Inj 2 Mg/Ml 2 Ml Vial) 4 mg IV Q6H PRN PRN Reason: Nausea Stop: 07/21/25 02:43 Last Admin: 06/21/25 09:11 Dose: 4 mg Pantoprazole Sodium (Pantoprazole 40 Mg Tab) 40 mg PO BID [facility]AN[facility] Stop: 07/21/25 08:59 Last Admin: 06/21/25 08:13 Dose: 40 mg Polyethylene Glycol (Polyethylene (Miralax) 17 Gm Pack) 17 gm PO DAILY [facility]AN[facility] Stop: 07/21/25 08:59 Last Admin: 06/21/25 08:12 Dose: 17 gm Scopolamine (Scopolamine 1 Mg/72 Hr Tdsy Patch) 1 patch TD Q72H [facility]AN[facility] Stop: 07/21/25 08:59 Last Admin: 06/21/25 08:14 Dose: Not Given Sertraline HCl (Sertraline Hcl 100 Mg Tablet) 200 mg PO DAILY [facility] Stop: 07/21/25 08:59 Last Admin: 06/21/25 08:27 Dose: 200 mg Sucralfate (Sucralfate 1 Gm/10 Ml Udc) 1 gm PO ACHS [facility]AN[facility] Stop: 07/21/25 07:29 Last Admin: 06/21/25 08:11 Dose: 1 gm Trazodone HCl (Trazodone Hcl 50 Mg Tab) 50 mg PO HS [facility] Stop: 07/21/25 20:59 PG Care Time/CCT Total # of Minutes Spent Total Time Spent with Patient: Total time spent is greater than 50% in coordination of care (as documented) at patient's floor/unit and/or counseling patient: 60 minutes Coding Level of Care Code 24956 IN/OBS CONSULT LVL 5,80M Diagnoses Choking T17.308A Syncope and collapse R55 Sinus bradycardia R00.1
[2025-06-21] MEDS: ONDANSETRON INJ 2 MG/ML 2 ML VIAL IV PRN (09:11)
--- NOTE | 2025-06-21 12:06 | XCELERA ---
[id number]
[2025-06-21] MEDS: REMOVE TRANSDERM-SCOP PATCH SCH (12:25)
--- NOTE | 2025-06-21 14:21 | Electrocardiogram Report ---
Test Reason : Blood Pressure : */* mmHG Vent. Rate : 44 BPM Atrial Rate : 44 BPM P-R Int : 178 ms QRS Dur : 82 ms QT Int : 472 ms P-R-T Axes : 78 86 60 degrees QTcB Int : 403 ms Marked sinus bradycardia Abnormal ECG When compared with ECG of 24-May-2025 12:11, No significant change was found Confirmed by Senthil Carmen ([id number]) on 06/21/2025 2:21:09 PM Referred By: REFERRED SELF Confirmed By: Senthil Carmen
[2025-06-21 14:24] VITALS: BP 94/60; PULSE 51; RESP 17; TEMP 98.1; O2SAT 95
[2025-06-21] MEDS ORDERED: NUTREN LIQD 2.0 1,000 ML BAG PEG SCH (16:00)
[2025-06-21] MEDS: TUBE FEEDING WATER FLUSH PEG SCH (16:54)
[2025-06-21] MEDS: CHECK SCOPOLAMINE PATCH PLACEMENT SCH (17:32)
[2025-06-21] MEDS: OPTIRAY 320 125ml IV ONE (18:05)
--- NOTE | 2025-06-21 18:17 | CT Scan Report ---
Clinical history: Rule out pulmonary embolism Technique: Axial computed tomography images were obtained of the chest after the administration of intravenous contrast according to the CT angiogram protocol Findings: There is no definite sign of pulmonary embolism. There is mild dependent subsegmental atelectasis in both lower lobes. The lungs otherwise appear clear without infiltrate or mass. There is no pleural effusion or pneumothorax. There is no sign of pulmonary fibrosis or other diffuse interstitial process. No endobronchial lesion is seen There is no mediastinal, hilar, or axillary adenopathy. The thoracic aorta appears unremarkable with no sign of aneurysm or dissection. There is no pericardial effusion There are bilateral breast implants. Postsurgical changes are seen involving the stomach. No fracture is seen. No focal osseous lesion is evident Impression: 1. No definite sign of pulmonary embolism 2. Essentially normal-appearing lungs Electronically signed by Paulo Knight 06-21-2025 6:17 PM
--- NOTE | 2025-06-21 18:38 | Discharge Summary ---
Date of Service June 21, 2025 Admission HPI Per Admitting Provider 55-year-old female with past medical history significant for prediabetes, history of sleep apnea, history of protein calorie malnutrition, history of persistent nausea and vomiting, status post Maryuri-en-Y gastric surgery with postgastrectomy syndrome and status post PEG tube feeding, GERD, depression, history of pulmonary embolism 2018 currently not on anticoagulation, history of left basal hemorrhagic CVA requiring craniotomy in October 2022 with eventual cranioplasty in March 2023, presents with syncopal episode. Patient was recently in the hospital for symptomatic anemia and syncope. Last admission her hemoglobin was 6.9 requiring 3 unit of PRBCs . Blood loss thought to be secondary to upper GI bleed. EGD on 05/25 showed gastritis and nonbleeding ulceration at gastrojejunal anastomosis. Hemoglobin improved. Patient was discharged on Protonix twice daily and Carafate 4 times daily. She also had UTI cultures grew MSSA treated with Keflex. Electrolytes were replaced. She was discharged on 05/26/2025. Today patient was trying to eat steak and started having choking. Patient's son did Heimlich maneuver and after that patient had syncopal episode. In the ER monitor shows bradycardia. Labs were okay. CT head and CT abdomen pelvis no acute findings. Currently patient is somewhat drowsy. Have to constantly arouse her to ask questions. Says he has some headache. Denies runny nose or sore throat. No fevers. No cough. Denies any chest pain or shortness of breath. Has some nausea and abdominal discomfort. Bowels are moving okay. Patient seems after gastric bypass in recovery phase had significant food aversion and nausea and status post PEG tube placement in the remnant stomach. Patient gets tube feeds. Patient states she can eat food and says she can eat what ever she wants by mouth. During previous admission she told that she can eat few bites of soft food. Past medical history. As mentioned above Past surgical history. Bilateral breast enhancement. Colonoscopy. cystoscopy with stent placement. Dental surgery. EGD. Laparoscopic gastrostomy without reconstruction gastric tube. Laparoscopic gastric bypass Maryuri-en-Y. Laparoscopic appendectomy. Injection of lumbosacral spine. Partial removal of colon for diverticulitis. Laparoscopic cholecystectomy. Small bowel endoscopy with biopsy. Social history. . Quit smoking 2023. Smoked 0.3 pack a day for 16 years. No alcohol use currently. Smokes marijuana once or twice a week. Family history. Paternal grandfather had prostate cancer. Maternal grandfather had DC. Maternal grandmother had stroke. Father had CAD. Mother had high cholesterol. Admission Exam Per Admitting Provider General- Drowsy Head- atraumatic Eyes- PERRL. ENT- oropharynx clear Neck- supple, no JVD. Lungs- clear to auscultation no wheezing or crackles. Heart- regular rhythm; no murmur, no gallop. Abdomen- normal bowel sounds, soft, nontender, no distension, peg tube site mild erythema Extremities- no pretibial edema, no erythema seen Neuro- Drowsy but arousable, speaks in low volume PERRL, ; no facial palsy; no dysarthria; moves extremities Principal Diagnosis syncope chocking episode Discharge Exam General- slim F in NAD Eyes- PERRL. EOMI ENT- oropharynx clear Neck- supple, no JVD. Lungs- clear to auscultation no wheezing or crackles. Heart- regular rhythm; no murmur, no gallop. Abdomen- normal bowel sounds, soft, nontender, no distension, peg tube site mild erythema Extremities- no pretibial edema, no erythema seen Neuro- awake, alert, answers appropriately, PERRL, EOMI ; no facial palsy; no d ysarthria; moves extremities Discharge Data Allergies Allergy/AdvReac Type Severity Reaction Status Date / Time No Known Allergies Allergy Verified 05/25/25 12:46 Consultations 06/20/25 22:58 ED Decision to Admit Stat 06/21/25 08:00 Consult Cardiology Routine Ordered Studies 06/20/25 20:13 CT head/brain wo con Stat FINDINGS: Brain: Remote ischemic injury of the left capsule. No hemorrhage. No significant white matter disease. No edema. Empty sella with enlarged diaphragmatic sellae. Ventricles: Unremarkable. No ventriculomegaly. Bones/joints: Remote left craniotomy. No acute fracture. Soft tissues: Unremarkable. Sinuses: Unremarkable as visualized. No acute sinusitis. Mastoid air cells: Unremarkable as visualized. No mastoid effusion. IMPRESSION: No evidence of acute intracranial pathology. 06/20/25 20:27 CT abd pelvis IV con only Stat FINDINGS: Lung bases: Unremarkable. No mass. No consolidation. ABDOMEN: Liver: Unremarkable. No mass. Gallbladder and bile ducts: Postop changes prior cholecystectomy. No ductal dilation. Pancreas: Unremarkable. No mass. No ductal dilation. Spleen: Unremarkable. No splenomegaly. Adrenals: Unremarkable. No mass. Kidneys and ureters: Simple 1.5 cm right renal cysts. No follow-up of these simple cysts is necessary. No hydronephrosis. Stomach and bowel: Postop changes of the stomach. No obstruction. No mucosal thickening. PELVIS: Appendix: No findings to suggest acute appendicitis. Bladder: Unremarkable. No mass. Reproductive: Unremarkable as visualized. ABDOMEN and PELVIS: Intraperitoneal space: Unremarkable. No free air. No significant fluid collection. Bones/joints: No acute fracture. No dislocation. Soft tissues: Unremarkable. Vasculature: Unremarkable. No abdominal aortic aneurysm. Lymph nodes: Unremarkable. No enlarged lymph nodes. Tubes, lines and devices: Postoperative changes percutaneous gastrostomy tube. IMPRESSION: No acute findings in the abdomen or pelvis. Chronic changes as described above 06/21/25 17:42 CT angio chest PE protocol Urgent Findings: There is no definite sign of pulmonary embolism. There is mild dependent subsegmental atelectasis in both lower lobes. The lungs otherwise appear clear without infiltrate or mass. There is no pleural effusion or pneumothorax. There is no sign of pulmonary fibrosis or other diffuse interstitial process. No endobronchial lesion is seen There is no mediastinal, hilar, or axillary adenopathy. The thoracic aorta appears unremarkable with no sign of aneurysm or dissection. There is no pericardial effusion There are bilateral breast implants. Postsurgical changes are seen involving the stomach. No fracture is seen. No focal osseous lesion is evident Impression: 1. No definite sign of pulmonary embolism 2. Essentially normal-appearing lungs Hospital Course (1) Syncope and collapse: 55-year-old female with past medical history significant for prediabetes, history of sleep apnea, history of protein calorie malnutrition, history of persistent nausea and vomiting, status post Maryuri-en-Y gastric surgery with postgastrectomy syndrome and status post PEG tube feeding, GERD, depression, history of pulmonary embolism 2018 currently not on anticoagulation, history of left basal hemorrhagic CVA requiring craniotomy in October 2022 with eventual cranioplasty in March 2023, presents with syncopal episode. Patient was recently in the hospital for symptomatic anemia and syncope. Last admission her hemoglobin was 6.9 requiring 3 unit of PRBCs . Blood loss thought to be secondary to upper GI bleed. EGD on 05/25 showed gastritis and nonbleeding ulceration at gastrojejunal anastomosis. Hemoglobin improved. Patient was discharged on Protonix twice daily and Carafate 4 times daily. She also had UTI cultures grew MSSA treated with Keflex. Electrolytes were replaced. She was discharged on 05/26/2025. Today patient was trying to eat steak and started having choking. Patient's son did Heimlich maneuver and after that patient had syncopal episode. In the ER monitor shows bradycardia. Labs were okay. CT head and CT abdomen pelvis no acute findings. Currently patient is somewhat drowsy. Have to constantly arouse her to ask questions. Says he has some headache. Denies runny nose or sore throat. No fevers. No cough. Denies any chest pain or shortness of breath. Has some nausea and abdominal discomfort. Bowels are moving okay. Patient seems after gastric bypass in recovery phase had significant food aversion and nausea and status post PEG tube placement in the remnant stomach. Patient gets tube feeds. Patient states she can eat food and says she can eat what ever she wants by mouth. During previous admission she told that she can eat few bites of soft food. Syncope After choking on steak Per discussion w/ pt's - pt may have syncopised prior to trying to swallow food/ so not clear about chocking Labs okay EKG shows sinus bradycardia CT head okay Last last admission she was admitted for syncope thought to be from GI bleed Will monitor on telemetry - no arrythmias noted BP on lower side - per pt and - always on lower side FOBT obtained - negative CT PE obtained - negative for PE Echo - LV syst. function normal, LV EF 60-65%, Grade I diast. dysfunction, Mild aortic regurg., Mild pulmonic valv. regurg., Moderate tricuspid regurg., RV syst. pressure elevated at 30-40mmHg, Mobile echodensity seen coming off the left ventricular aspect of the aortic valve possibly Lambl's excrescences Cardiology consulted and discussed with - Zio monitor on DC Orthostatics obtained - BP lower on standing but not orthostatic however - pt already obtained IVF in ED and on admission, likely pt was orthostatic prior to IVF fluids Pt and her would like pt to be discharged. Discussed in detail all the tests and findings. Pt's feels she is dehydrated as she has very poor oral intake and chronic nausea since her brain bleed. They will follow up closely with her providers to help with nausea, and oral intake/ IV rehydration if needed. Choking episode Patient mostly gets tube feeds But states she can eat also CT abdomen pelvis okay Speech consulted - ok for diet Nutrition On tube feeds Dietitian consult Recent history of GI bleed On Protonix and Carafate FOBT negative Depression anxiety On Zoloft and Klonopin and trazodone Total Time Total Time Spent Total Time Spent (In Minutes): 40 Discharge Plan Discharge Items Patient Disposition: Home - Self-Care Reason For Visit: SYNCOPE Discharge Diagnosis: syncope chocking episode Condition on Discharge: Fair Activity: Per Instructions section Non-emergency contact: Primary Care Provider and Bible Reader Call non-emergency contact if: you have any medication questions and your symptoms worsen Follow-up/Referrals: Joey Crockett MD [Primary Care Provider] - Diet: Regular Addtl Attending Provider Instructions: Follow up with primary care physician within 1 week. You should also follow up with your production clerk and communications equipment installer. Make sure to stay well hydrated. Pending Studies at Discharge: Yes Studies:: final blood cultx results Stand-Alone Forms: [employer], Smoking Cessation Medications and DC Order Prescriptions: Continued sertraline 100 mg tablet 200 mg PO DAILY Patient Comments: 05/23- hasnt taking today clonazepam 1 mg tablet 1 mg PO DAILY Patient Comments: 05/23- per pt has been taking 1 full tablet daily and later in the day she takes 1/2 for her pain lidocaine 5 % adhesive patch,medicated 1 patch topical DAILY PRN (Reason: Pain) Rx Instructions: leave on most painful area for up to 12 hrs polyethylene glycol 3350 [Miralax] 17 gram Powder In Packet 17 g PO DAILY 30 Days Qty: 30 0RF sucralfate 100 mg/mL Suspension 1 g PO QID 30 Days Qty: 1200 0RF pantoprazole [Protonix] 40 mg tablet,delayed release (DR/EC) 40 mg PO BID 30 Days Qty: 60 0RF acetaminophen [Tylenol] 325 mg Tablet 650 mg PO DIRECTED PRN (Reason: PAIN, MILD-MODERATE) trazodone 50 mg tablet 50 mg PO HS nutritional supplements Liquid 105 ea feeding tube DIRECTED Patient Comments: 05/23- per pt she cut down to 3 containers as she felt 4 containers was too much Rx Instructions: ADMINISTER 4 CONTAINERS AT 105 ML/HOUR DAILY AT TOLERATED. prochlorperazine maleate [Compazine] 5 mg Tablet 5 mg PO Q6H PRN (Reason: NAUSEA/VOMITING) cyanocobalamin (vitamin B-12) 1,000 mcg/mL Solution 1,000 mcg SUBCUT .Q12WKS Patient Comments: 05/23- per pt, she is due for injection epinephrine [EpiPen] 0.3 mg/0.3 mL Auto-Injector 0.3 mg IM DIRECTED PRN (Reason: Allergic Reaction) scopolamine base 1 mg over 3 days patch 3 day 1 mg transdermal .[id number] Women's One Daily 18 mg iron-400 mcg-500 mg Tablet 1 tab PO DAILY dicyclomine 10 mg Capsule 10 mg PO QID PRN (Reason: abdominal pain) Qty: 60 0RF prochlorperazine [Compazine] 25 mg Suppository 25 mg AR Q12H PRN (Reason: NAUSEA/VOMITING) 15 Days Qty: 0 0RF baclofen 10 mg tablet 10 mg PO Q12H PRN (Reason: hiccups) Qty: 60 0RF Discharge Orders: Discharge Order (Routine); Ordered 06/21/25 Ordered By: Stepan Barraza Admission Data Admit Date/Time: 06/21/25 02:14 Attending Provider: Stepan Barraza Admit Provider: Nicolas Joshi Primary Care Provider: Joey Crockett Other Providers: Nicolas Joshi; Maggy Barone; Favian Foley; Emory Lamas; Russell Patterson; Kenyon Barraza; Andrey Orellana; Arabella Jones; Alicia Richards; Stephanie Joseph; Mann Mancia Ashley M.; Giovanny Gutierrez; Gopi Solis; Mariam Jensen; Vicenta Lambert; Sonia Palma; Jesse Chavez; Ab Roberts; Joanna Lamas; Ccee Hernandez; Senthil Carcamo; Young Sanon; Celina Cormier Other Interventions: Discharge Summary Assessment (RN) Last Done: 06/21/25 18:46
[2025-06-21] MEDS ORDERED: REMOVE LIDODERM PATCH SCH (21:00)
== END 2025-06-21 19:10 | disposition home or self-care (01) | DRG 206 ==
LOC: ED 20:03 → EDINP 06-21 02:14 → INTOOBSV 06-21 02:14 → 2E 06-21 02:44